=== PATIENT | female | born 1990 | race Caucasian/White ===

== ENCOUNTER 2018-03-10 12:24 | Emergency (ER) | payer MEDICAID, SELFPAY ==
[2018-03-10 12:25] VITALS: BP 140/103; PULSE 107; RESP 20; TEMP 36.6; O2SAT 100; BMI 55.5
[2018-03-10 12:52] VITALS: RESP 17; O2SAT 97
[2018-03-10 12:59] LABS: Absolute Lymphocyte Count 1.26 X10^3/ul (0.83-4.51); Absolute Neutrophil Count 2.4 X10^3/uL (2.0-7.7); Basophil# 0.01 X10^3/uL; Basophil% 0.2 % (0-1); Eosinophil# 0.19 X10^3/uL; Eosinophils% 4.3 % (0-5); Hematocrit 42.6 % (37-47); Hemoglobin 14.3 g/dl (12.0-15.0); Lymphocyte # 1.26 X10^3/ul (4.0); Lymphocyte % 28.4 % (19-41); Mean Corp Hgb Conc 33.6 g/gl (32-36); Mean Corpuscular Hgb 29.8 pg (27.0-32.0); Mean Corpuscular Volume 88.8 fL (81-99); Monocyte# 0.54 X10^3/uL; Monocyte% 12.2 % (0-10); Neutrophil # 2.42 X10^3/uL (2.7-7.7); Neutrophil % 54.7 % (47-70); Platelet Count 110 K/mm3 (150-450); RBC Distribution Width CV 12.6 % (11.6-14.6); RBC Distribution Width SD 40.2 fl (35.1-43.9); White Blood Count 4.4 K/mm3 (4.4-11.0)
[2018-03-10 13:00] LABS: POSITIVE COUNT NO; POSITIVE DIFFERENTIAL NO; POSITIVE MORPHOLOGY NO
--- NOTE | 2018-03-10 13:03 | ED.VISSUMM ---
- ER Visit Summary Date of Service: 03/10/18 Chief Complaint: [] Multiple complaints for months History of Present Illness: The patient is a 27 F [] reports she has depression and multiple personality disorder she complains of months; she has had chronic daily chest pain for years, a sense that she is swelling nonspecifically, she feels she has had weight gain, she complains of intermittent nausea no real vomiting no abdominal pain she has missed her menstrual cycles and there is a possibility of by her history she has had no vaginal bleeding or discharge she has no leg edema, she has no history of NE PE or DVT or cardiopulmonary disorder she is followed by psychiatrist who told her to go see her primary care physician, which he tried to make that appointment they told they could not see her until March so she came to the emergency department These complaints are new or different the only reason she came to the ED was because her doctor asked her to wait until March for the appointment as she was concerned she was dehydrated and was retaining fluid Physical Examination: [] Test Results: [] v signs are within normal range her pulse ox is 100% she is afebrile she is in absent no distress she is a large person her BMI is 57, her HEENT exam is unremarkable her lungs sound clear heart tones are distant the abdomen is soft obese but nontender upper lower extremities are unremarkable without signs clubbing or edema neurologic she is awake moving all 4 I do not appreciate any area of focal edema she has full range of motion of all major joints, she denies any history except as above Emergency Department Course and Treatment: [] Patient's EKG chest x-ray are unremarkable all of her lab studies are generally unremarkable please see those reports except her d-dimer returned elevated 0.67, I discussed all of the above with her I discussed the d-dimer potentially could suggest a PE recommended CTA to evaluate for this potentially life-threatening condition however she declined the CTA stating she felt better she wanted to go home, she verbalized understanding of the risk of from PE or other life-threatening conditions, she indicated she was primarily concerned over the fact that she felt that she was dehydrated or retaining fluid I explained her none of her test results suggested that, she is Jose Luis a bland diet follow-up with her physicians as scheduled to move the appointment up and return for change in symptoms further I note she has been seen multiple times in the past for chest pain and she indicates to me she has never followed up as she has been instructed to do and have explained her that she must follow-up for this diagnosis and obtain the appropriate outpatient management and she indicates that she will do so and she has an appointment scheduled for March but have asked her to move that up Treatment Plan: [] Disposition: [] Home stable, declined CTA Impression: [] Acute recurrent chest pain, concern for dehydration, This note was generated with [employer] dictation software. It may contain incorrect words, spelling, and punctuation that were not noted in review of the chart prior to signing ED Disposition - Plan for ED Patient: Chief Complaint: General Illness Referrals: Gayatri Grubbs MD [Primary Care Provider] -
--- NOTE | 2018-03-10 13:06 | EKG12_ITS ---
Test Reason : CP Blood Pressure : / mmHG Vent. Rate : 088 BPM Atrial Rate : 088 BPM P-R Int : 126 ms QRS Dur : 074 ms QT Int : 352 ms P-R-T Axes : 030 074 028 degrees QTc Int : 425 ms Normal sinus rhythm Normal ECG Confirmed by TORIE CALVERT MD ([id number]), avid editor RUTH SALAZAR ([id number]) on 03/13/2018 2:27:56 PM Referred By: Confirmed By:TORIE CALVERT MD
[2018-03-10 13:13] LABS: AST(SGOT) 12 U/L (15-37); Alanine Aminotransfer ALT/SGPT 15 U/L (13-56); Albumin, Serum 3.5 g/dL (3.2-5.0); Alkaline Phosphatase 97 U/L (45-117); Anion Gap 5 (5-15); BUN 9 mg/dL (7-18); BUN/Creat Ratio 8.1 RATIO (10-20); Bilirubin, Direct 0.12 mg/dL (0.00-0.30); Calcium,Total 8.4 mg/dL (8.5-10.1); Chloride 109 mmol/L (98-107); Creatinine, Serum 1.11 mg/dL (0.55-1.02); EST Glomerular Filtration Rate 61 mL/min (>60); Est Glom Filt Rate - Afr Amer 74 mL/min (>60); Estimated Creatinine Clearance 59.15 ml/min; Globulin 3.7 g/dL (2.2-4.2); Glucose 86 mg/dL (74-106); Lipase 52 U/L (73-393); Potassium 4.2 mmol/L (3.5-5.1); Protein, Total 7.2 g/dL (6.4-8.2); Sodium Level 142 mmol/L (136-145)
--- NOTE | 2018-03-10 13:15 | RAD_ITS ---
STUDY: X-RAY CHEST REASON FOR EXAM: Female, 27 years old. Shortness of breath and chest pain TECHNIQUE: 2 views of the chest were obtained COMPARISON: November 21, 2017 chest radiograph FINDINGS: No lung consolidation, pleural effusion or pneumothorax. Mild pulmonary vascular congestion. Osseous structures demonstrate no acute hours. Degenerative changes in the thoracic spine. Small calcified granuloma in the right upper lobe. IMPRESSION: No evidence for focal airspace disease. Electronically Signed: Mazin Mallory, at 13:50 EDT Tel , Service support , RAD/Chest PA and Lateral
[2018-03-10 13:27] LABS: Bacteria 0 SEEN /hpf (None Seen); Color, Urine Yellow (Yellow); Glucose, Dipstick Normal (Normal); Ketone-Dipstick Negative (Negative); Leukocyte Esterase-Dipstick Negative /ul (Negative); Mucous, Urine 0 SEEN /hpf (<or=2+); Nitrite-Dipstick Negative (Negative); Occult Blood-Urine Negative /ul (Negative); Protein-Dipstick Negative (Negative); Red Blood Cells-Urine 0 SEEN /hpf (0-5); Urine Bilirubin Dipstick Negative (Negative); Urine Clarity Clear (Clear); Urine Urobilinogen Normal (Normal); White Blood Cells 0 SEEN /hpf (0-5)
[2018-03-10 13:33] LABS: Pregnancy, Serum, hCG Quali. NEGATIVE Negative (0-9 Nonpreg)
[2018-03-10 13:34] LABS: Squamous Epithelial Cells - UA 0-5 SEEN /hpf (5-10)
[2018-03-10 14:11] LABS: D-Dimer Quantitative (DVT/PE) 0.67 FEU/ug/m (0.27-0.49)
[2018-03-10 14:16] LABS: BNP,B-Type NATRIURETIC PEPTIDE 6.2 pg/mL (0-100)
--- NOTE | 2018-03-10 14:47 | ED.DEP ---
ED Disposition - Plan for ED Patient: Chief Complaint: General Illness Instructions: ED Chest Pain Atypical Unkn Cause Referrals: Gayatri Grubbs MD [Primary Care Provider] -
[2018-03-10 15:12] VITALS: BP 145/76; PULSE 90; RESP 17; O2SAT 99
== END 2018-03-10 15:13 | disposition home or self-care (01) ==
LOC: ED 14:22
PROVIDERS: Emergency Provider Emergency Medicine; Family Provider Internal Medicine; PCP Internal Medicine
DX: R07.9 Chest pain, unspecified (principal); R74.8 Abnormal levels of other serum enzymes; R11.0 Nausea; F44.81 Dissociative identity disorder; F32.9 Major depressive disorder, single episode, unspecified; Z79.899 Other long term (current) drug therapy
CPT/HCPCS: 71046; 80048; 80076; 81001; 83690; 83880; 84484; 84703; 85025; 85379; 93005; 96360; 99283; J7030; J7040; A4216

== ENCOUNTER 2019-06-15 20:12 | Emergency (ER) | payer MEDICAID, SELFPAY ==
[2019-06-15 20:12] VITALS: BP 164/103; PULSE 115; RESP 18; TEMP 36.8; O2SAT 98; BMI 56.4
--- NOTE | 2019-06-15 20:28 | RAD_ITS ---
STUDY: X-RAY - PELVIS REASON FOR EXAM: Female, 29 years old. Pain TECHNIQUE: 2 views of the pelvis COMPARISON: None. FINDINGS: There is no evidence of fracture or dislocation. There are no significant degenerative changes. There are no radiodense foreign bodies. RAD/Pelvis 1 or 2 Views IMPRESSION: No fracture or dislocation. Electronically Signed: Horace Bonilla, at 21:07 EDT Tel , Service support ,
--- NOTE | 2019-06-15 20:28 | RAD_ITS ---
STUDY: X-RAY - LUMBAR SPINE REASON FOR EXAM: Female, 29 years old. Injury TECHNIQUE: 3 view(s) of the lumbar spine were obtained. COMPARISON: None FINDINGS: There is no evidence of fracture or dislocation in the lumbar spine. The vertebral body heights and disc spaces are well-maintained. There are no significant degenerative changes. RAD/Lumbar Spine 2 or 3 Views IMPRESSION: No fracture or dislocation in the lumbar spine. Electronically Signed: Horace Bonilla, at 21:07 EDT Tel , Service support ,
--- NOTE | 2019-06-15 21:17 | ED.DCSUM_ITS ---
- ER Visit Summary Date of Service: 06/15/19 Chief Complaint: Back pain History of Present Illness: The patient is a 29 F who states that 2 weeks ago she fell in the shower trying to sit on the chair landing sitting position. That she has pain mostly in the lower back but does shoot up to the intrascapular region when she attempts to sit. No radicular symptoms. No loss of bowel or bladder control. No IV drug use. No fevers no rashes. She denies any neurologic deficits. She states that she is unable to see her primary care physician for months due to them being booked. She sees Dr. kwan at the [facility]. I did ask if the patient knew that they typically are able to get them in with the nurse practitioner and she states that they were booked as well. Physical Examination: Afebrile vital signs are stable Gen: Well-nourished well-developed Head: Normocephalic atraumatic Eyes: Perrl EOMI ENT: TMs clear no rhinorrhea moist mucous membranes Neck: Supple no lymphadenopathy no JVD nontender CVS: Regular rate rhythm no murmurs normal S1-S2 Respiratory: No distress clear to auscultation bilaterally chest nontender Abdomen: Soft nontender nondistended normal bowel sounds no masses Back: Patient has diffuse tenderness palpation of the lower lumbar buttock region out of proportion to examination. There is pain even to the lightest touch. Extremity: Nontender no edema Skin: Normal color no rash Neuro: alert orientated ?3 CN II-XII intact normal strength sensation reflexes gait cerebellar Psych: Blunted affect Test Results: X-rays of the pelvis lumbar spine do not demonstrate any acute fracture. Emergency Department Course and Treatment: Patient be discharged home with naproxen and Flexeril she is to follow-up with primary care. Impression: 1. Acute lumbar muscle strain This note was generated with [employer] dictation software. It may contain incorrect words, spelling, and punctuation that were not noted in review of the chart prior to signing ED Disposition - Plan for ED Patient: Disposition: Home or Assisted Living Instructions: Back Sprain/Strain Prescriptions: cycloBENZAPRine HCl [Flexeril] 10 mg PO TID PRN #15 tab PRN Reason: Muscle Spasm Prescription Printed Naproxen [Naprosyn] 500 mg PO BID #14 tab Prescription Printed Referrals: Gayatri Grubbs MD [Primary Care Provider] - 1 Week
[2019-06-15 21:27] VITALS: BP 123/82; PULSE 89; RESP 18; O2SAT 95
--- NOTE | 2019-06-15 21:28 | ED.RN ---
REVIEWED D/C INSTRUCTIONS, FOLLOW UP CARE, PRESCRIPTIONS, AND S/S THAT WOULD WARRANT A RETURN TO THE ED WITH PT. PT VERBALIZED AN UNDERSTANDING AND DENIES FURTHER QUESTIONS FOR THIS RN. PT SKIN P/W/D, RESP EVEN AND UNLABORED, PT A&O X 3, NO DISTRESS NOTED. PT AMBULATED OUT OF ED, GAIT STEADY.
== END 2019-06-15 21:29 | disposition home or self-care (01) ==
PROVIDERS: Emergency Provider Emergency Medicine; Family Provider Internal Medicine; PCP Internal Medicine
DX: S39.012A Strain of muscle, fascia and tendon of lower back, initial encounter (principal); W07.XXXA Fall from chair, initial encounter; Y93.E1 Activity, personal bathing and showering; Y92.9 Unspecified place or not applicable; Y99.9 Unspecified external cause status; Z72.0 Tobacco use
CPT/HCPCS: 72100; 72170; 99282

== ENCOUNTER 2019-06-28 20:18 | Emergency (ER) | payer MEDICAID, SELFPAY ==
[2019-06-28 20:19] VITALS: BP 159/98; PULSE 106; RESP 15; TEMP 36.7; O2SAT 94; BMI 56.0
--- NOTE | 2019-06-28 21:28 | ED.DCSUM_ITS ---
- ER Visit Summary Date of Service: 06/28/19 Chief Complaint: Depression History of Present Illness: The patient is a 29 F with a history of anxiety, depression, bipolar disorder, and schizophrenia. She stopped taking her meds about 2 weeks ago because she was drinking alcohol. She said this made her anxi ety symptoms worse. She had a fight with her mom and this also made her symptoms worse. She is not currently having any thoughts of suicide. No plan. No attempt. She has her friends with her to support her. No medical complaints today. Physical Examination: Afebrile and vital signs unremarkable. Patient alert and oriented. Depressed mood and flat affect. Skin unremarkable. Neurologic exam grossly normal. Test Results: None indicated Emergency Department Course and Treatment: Patient presents with depressed mood symptoms. She is not suicidal. There is no indication for involuntary hospitalization. She spoke with her social media community manager who agreed. She was able to get follow-up with her crisis counselor tomorrow. She will stay with her friends tonight. Return for any new or worsening issues. She will take her medications. Treatment Plan: As above Disposition: Discharge Impression: 1. Mood disorder This note was generated with [employer] software. It may contain incorrect words, spelling, and punctuation that were not noted in review of the chart prior to signing ED Disposition - Plan for ED Patient: Referrals: Gayatri Grubbs MD [Primary Care Provider] -
--- NOTE | 2019-06-28 21:30 | ED.DEP ---
ED Disposition - Plan for ED Patient: Instructions: CONTRACT, No Harm Additional Instructions: followup with crisis counselor tomorrow as discussed
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
== END 2019-06-28 22:10 | disposition home or self-care (01) ==
PROVIDERS: Emergency Provider Emergency Medicine; Family Provider Internal Medicine; PCP Internal Medicine
DX: F39 Unspecified mood [affective] disorder (principal); F20.9 Schizophrenia, unspecified; F31.9 Bipolar disorder, unspecified; F41.9 Anxiety disorder, unspecified; K21.9 Gastro-esophageal reflux disease without esophagitis; Z72.0 Tobacco use; Z79.899 Other long term (current) drug therapy
CPT/HCPCS: 99282

== ENCOUNTER 2019-08-16 18:46 | Emergency (ER) | payer MEDICAID, SELFPAY ==
[2019-08-16 18:46] VITALS: BP 152/122; PULSE 101; RESP 15; O2SAT 100
[2019-08-16 18:47] VITALS: BP 152/122; PULSE 105; RESP 15; TEMP 37.1; O2SAT 100; BMI 56.2
--- NOTE | 2019-08-16 19:24 | EKG12_ITS ---
Test Reason : CP Blood Pressure : / mmHG Vent. Rate : 102 BPM Atrial Rate : 102 BPM P-R Int : 138 ms QRS Dur : 080 ms QT Int : 338 ms P-R-T Axes : 031 075 054 degrees QTc Int : 440 ms Sinus tachycardia Otherwise normal ECG Confirmed by ENRIKE MUELLER, TORIE ([id number]), editorial clerk RAMONITA GÓMEZ ([id number]) on 08/19/2019 8:54:36 AM Referred By: DC Confirmed By:TORIE CALVERT MD
--- NOTE | 2019-08-16 19:29 | RAD_ITS ---
STUDY: X-RAY CHEST REASON FOR EXAM: Female, 29 years old. Chest pain TECHNIQUE: Frontal view of the chest COMPARISON: X-Ray chest March 10, 2018 FINDINGS: The lungs are clear. There are no pleural effusions. There is no pneumothorax. The heart is normal in size. The visualized osseous structures are within normal limits. RAD/Chest 1 View (Portable) IMPRESSION: No acute thoracic pathology. Electronically Signed: Rodríguez Stafford, at 20:08 EDT Tel , Service support ,
[2019-08-16 19:31] LABS: Absolute Lymphocyte Count 2.97 X10^3/uL (0.83-4.51); Absolute Neutrophil Count 3.9 X10^3/uL (2.0-7.7); Basophil# 0.06 X10^3/uL; Basophil% 0.8 % (0-1); Eosinophil# 0.18 X10^3/uL; Eosinophils% 2.3 % (0-5); Hematocrit 46.6 % (37-47); Hemoglobin 16.1 g/dL (12.0-15.0); Lymphocyte # 2.97 X10^3/ul (4.0); Lymphocyte % 37.6 % (19-41); Mean Corp Hgb Conc 34.5 g/dL (32-36); Mean Corpuscular Hgb 29.7 pg (27.0-32.0); Monocyte# 0.81 X10^3/uL; Monocyte% 10.3 % (0-10); NRBC Flagged by Analyzer 0 % (0-5); Neutrophil # 3.85 X10^3/uL (2.7-7.7); Neutrophil % 48.7 % (47-70); Platelet Count 141 K/mm3 (150-450); RBC Distribution Width CV 12.4 % (11.6-14.6); RBC Distribution Width SD 38.5 fl (35.1-43.9); Red Blood Count 5.42 M/mm3 (4.2-5.4); White Blood Count 7.9 K/mm3 (4.4-11.0)
[2019-08-16] MEDS: Aspirin 81 MG TAB.CHEW 324 MG PO (19:34)
[2019-08-16 19:44] LABS: D-Dimer Quantitative (DVT/PE) 0.56 FEU/ug/m (0.27-0.49)
--- NOTE | 2019-08-16 19:45 | CT_ITS ---
STUDY: CTA CHEST REASON FOR EXAM: Female, 29 years old. Shortness of breath RADIATION DOSAGE (If Supplied By Facility): CTDIvol = ( 9.1 ) mGy, DLP = ( 476.03 ) mGycm TECHNIQUE: The examination was performed with the intravenous administration of 100 IV Isovue 370. Post-processing of the angiographic images was performed, with multiplanar reformation and 3D reconstruction. Individualized dose optimization techniques were used for this CT. COMPARISON: None. FINDINGS: Normal enhancement of the main pulmonary artery and right and left pulmonary arteries. Normal enhancement of the bilateral peripheral pulmonary arteries. There is no demonstrated pulmonary embolism. Normal thoracic aorta and visualized great vessels. There is no demonstrated aortic dissection. Normal heart and pericardium. Normal mediastinum. Normal hilar regions. Normal visualized trachea and bronchi. The lungs are well expanded. There is no consolidation. There is a left lower lobe 4 mm nodule of unlikely clinical significance, series 2 image 82. Normal pleura. Normal chest wall structures. Normal osseous structures. Normal visualized upper abdomen. CT/CTA Chest W/WO Contrast IMPRESSION: No evidence of pulmonary embolus. No consolidation. Left lower lobe 4 mm nodule of unlikely clinical significance. Electronically Signed: Rodríguez Stafford, at 20:22 EDT Tel , Service support ,
[2019-08-16 19:46] VITALS: BP 145/99; PULSE 93; RESP 12; O2SAT 98
[2019-08-16 19:46] LABS: Anion Gap 3 (5-15); BUN 8 mg/dL (7-18); BUN/Creat Ratio 5.9 RATIO (10-20); Chloride 104 mmol/L (98-107); Creatinine, Serum 1.36 mg/dL (0.55-1.02); EST Glomerular Filtration Rate 48 mL/min (>60); Est Glom Filt Rate - Afr Amer 58 mL/min (>60); Glucose 89 mg/dL (74-106); Potassium 3.4 mmol/L (3.5-5.1); Sodium Level 135 mmol/L (136-145)
--- NOTE | 2019-08-16 19:46 | ED.RN ---
LAB VALUE RECEIVED FROM LAB. D-DIMER 0.56. DR. BUITRAGO NOTIFIED.
[2019-08-16 20:00] VITALS: BP 115/86; PULSE 87; RESP 15; O2SAT 100
--- NOTE | 2019-08-16 21:02 | ED.VISSUMM ---
- ER Visit Summary Date of Service: 08/16/19 Chief Complaint: Chest pain History of Present Illness: The patient is a 29 F with chest pain that started yesterday and was worse today. Patient feels like someone is sitting on her chest. She does report increasing stress. She dealt with a miscarriage over the past week. She was early in her first trimester. She was having some vaginal bleeding and her hormone levels were dropping. She saw an OCCUPATIONAL HEALTH MANAGER at the [facility]. They attributed the loss to her medications. She also said that yesterday was the anniversary of her father's . She has been dealing with a lot of stress, and she has been trying to stay calm. She also reports recent travel. Physical Examination: Afebrile and vital signs unremarkable. Blood pressure 152/122. Patient is alert and oriented. No acute distress. Heart regular. Lungs clear. Abdomen soft. Extremities nontender. Symmetric edema. Skin normal in color. Test Results: EKG showed sinus rhythm at a rate of 102. No sign of ischemia or infarction pattern. Hemoglobin 16.1 and platelets 141. Creatinine 1.36. Troponin normal. D-dimer slightly elevated 0.56. CTA showed a left lower lobe nodule 4 mm. No evidence of PE. Emergency Department Course and Treatment: Patient is low risk for ACS. Low risk for PE. Work-up was unremarkable. I believe her symptoms are related to stress. No indication for further imaging or treatment. She is appropriate for outpatient care. She feels safe at home. She will be discharged with her family. Follow-up regarding her chest pain and lung nodule as an outpatient. Return for any new or worsening issues. Treatment Plan: As above Disposition: Discharge Impression: 1. Chest pain 2. Lung nodule This note was generated with [employer] software. It may contain incorrect words, spelling, and punctuation that were not noted in review of the chart prior to signing ED Disposition - Plan for ED Patient: Referrals: Gayatri Grubbs MD [Primary Care Provider] -
--- NOTE | 2019-08-16 21:08 | ED.DEP ---
ED Disposition - Plan for ED Patient: Instructions: CHEST PAIN, Uncertain Cause Referrals: Gayatri Grubbs MD [Primary Care Provider] -
[2019-08-16 21:28] VITALS: BP 130/99; PULSE 98; RESP 15; O2SAT 97
== END 2019-08-16 21:29 | disposition home or self-care (01) ==
LOC: ED 19:43
PROVIDERS: Emergency Provider Emergency Medicine; Family Provider Internal Medicine; PCP Internal Medicine
DX: R07.9 Chest pain, unspecified (principal); R74.8 Abnormal levels of other serum enzymes; R91.1 Solitary pulmonary nodule; F41.9 Anxiety disorder, unspecified; Z72.0 Tobacco use; Z79.899 Other long term (current) drug therapy
CPT/HCPCS: 71045; 71275; 80048; 84484; 85025; 85379; 93005; 99285; Q9967; A4216

== ENCOUNTER 2019-12-16 16:54 | Emergency (ER) | payer MEDICAID, SELFPAY ==
[2019-12-16 16:54] VITALS: BP 149/106; PULSE 112; RESP 18; O2SAT 96
[2019-12-16 16:55] VITALS: BP 149/106; PULSE 112; RESP 18; TEMP 36; O2SAT 97; BMI 57.6
--- NOTE | 2019-12-16 17:48 | ED.VIS.GEN ---
History of Present Illness Chief Complaint: Chest Other Detail of Chief Complaint: Left rib injury Informant: Patient Onset: Today Context: Sudden Onset Current Severity: Moderate Maximum Severity: Moderate Narrative: Patient presents with left rib pain after a fall. She states she went outside and missed a step. She fell landing on her left side. She complaining of pain to the left ribs. She does report pain with deep breath. She denies any other injury from the fall. She has not taken anything for pain. Past Medical History - Allergies and Home Meds Allergies/Adverse Reactions: Allergies bacitracin Allergy (Verified 06/28/19 20:24) Unknown Latex, Natural Rubber Allergy (Verified 06/28/19 20:24) Rash Penicillins Allergy (Verified 06/28/19 20:24) Unknown Primary Care Physician: Gayatri Grubbs MD [Primary Care Provider] - Prior records reviewed: Yes Lives: Spouse/ Significant Other Smoking Status: Current every day smoker Review of Systems General: Denies: Chills, Fever Eyes: Denies: Visual changes - bilaterally ENT: Denies: Bilateral ear pain Cardiovascular: Reports: Chest pain Respiratory: Reports: Dyspnea - Pain with deep breath Gastrointestinal: Denies: Abdominal pain, Nausea, Vomiting, Diarrhea Genitourinary: Denies: Dysuria Musculoskeletal: Denies: Extremity Pain Skin: Denies: Rash Neurological: Denies: Headache, Weakness Physical Exam Vital Signs/Narrative: Vital Signs Temp Pulse Resp BP Pulse Ox 12/16/19 16:55 96.8 F L 112 H 18 149/106 H 97 12/16/19 16:54 112 H 18 149/106 H 96 Inital Vital Signs reviewed: Yes General: Well nourished, Well developed Head: Normocephalic ENT: Moist mucous membranes, - - No C-spine tenderness. Cardiovascular: Regular rate, Regular rhythm Respiratory: No distress, CTA bilaterally, Chest tenderness - Left rib tenderness palpation. Abdomen: Soft Skin: Normal color Neurological: Alert, Oriented x3 Psychological: Normal affect Diagnostic/Tx/Re-eval Impressions Chest X-Ray 12/16/19 17:50 IMPRESSION: No acute cardiopulmonary disease or major interval change. Electronically Signed: Gordon Waldrop DO at 18:20 EST Tel [phone], Service support , 12/16/19 17:50 Chest Insp/Exp 2 View [RAD] Routine - Medical Decision Making She was given Tylenol for pain. Test results are discussed with her. She now tells me she is able to take [place] without difficulty but cannot take ibuprofen or oxycodone. Prescription for [place] will be sent to the pharmacy for her. ED Disposition - Plan for ED Patient: Disposition: Home or Assisted Living Diagnosis: Rib contusion Instructions: RIB: CONTUSION vs MINOR FRACTURE Prescriptions: Hydrocodone Bitart/Apap 5-325 [[place] 5MG-325MG] 1 tablet PO Q6H PRN PRN 3 Days #10 tablet PRN Reason: Pain Transmission Status: Received by [facility] [facility] Referrals: Gayatri Grubbs MD [Primary Care Provider] - 1-2 Weeks
--- NOTE | 2019-12-16 17:50 | RAD_ITS ---
STUDY: X-RAY CHEST REASON FOR EXAM: Female, 29 years old. Fall. Left anterior chest pain. TECHNIQUE: AP inspiratory and expiratory views were performed. COMPARISON: August 16, 2019. FINDINGS: The lungs are clear and expanded. There is no demonstrated pleural abnormality. Normal size heart. Normal mediastinum and emma. Normal visualized pulmonary arteries. Normal visualized aortic arch and descending thoracic aorta. The thoracic spine is obscured by the mediastinum. Normal visualized ribs, clavicles, and shoulders. There is no demonstrated abnormality of the visualized soft tissue structures of the upper abdomen. RAD/Chest Insp/Exp 2 View IMPRESSION: No acute cardiopulmonary disease or major interval change. Electronically Signed: Gordon Waldrop DO at 18:20 EST Tel [phone], Service support ,
[2019-12-16] MEDS: Acetaminophen 500 MG Tablet 1000 MG PO (18:14)
[2019-12-16 19:02] VITALS: PULSE 100; RESP 16; O2SAT 98
== END 2019-12-16 19:09 | disposition home or self-care (01) ==
PROVIDERS: Emergency Provider Emergency Medicine; PCP Internal Medicine
DX: S20.212A Contusion of left front wall of thorax, initial encounter (principal); W10.9XXA Fall (on) (from) unspecified stairs and steps, initial encounter; Y93.9 Activity, unspecified; Y92.9 Unspecified place or not applicable; Y99.9 Unspecified external cause status; Z91.040 Latex allergy status; Z88.0 Allergy status to penicillin; F17.200 Nicotine dependence, unspecified, uncomplicated; Z79.899 Other long term (current) drug therapy
CPT/HCPCS: 71046; 99283

== ENCOUNTER 2020-07-27 13:24 | Emergency (ER) | payer MEDICAID, SELFPAY ==
[2020-07-27 13:24] VITALS: BP 131/84; PULSE 68; RESP 15; TEMP 36.4; O2SAT 99; BMI 57.4
[2020-07-27] MEDS: Naproxen 500 MG Tablet PO (13:47)
[2020-07-27] MEDS: HYDROcodone Bitartrate/Apap 5/325 Tablet PO (13:47)
--- NOTE | 2020-07-27 13:50 | RAD_ITS ---
STUDY: X-RAY - RIGHT ANKLE REASON FOR EXAM: Right ankle pain after a fall. TECHNIQUE: 2 view(s) of the ankle. COMPARISON: Radiographs 09/22/2017. FINDINGS: Although there is considerable overlying artifact, there is still significant diagnostically useful information available from this examination. Normal visualized distal tibia and fibula. Normal medial and lateral malleoli. Normal tibiotalar articulation and ankle mortise. Normal visualized talus and calcaneus. There is an os trigonum. The visualized subtalar, talonavicular, calcaneocuboid and tarsal articulations are normal. There is soft tissue swelling. RAD/Ankle 2 Views IMPRESSION: No demonstrated right ankle fracture. Electronically Signed: Scout Russ MD at 14:14 EDT Tel , Service support ,
--- NOTE | 2020-07-27 14:58 | ED.DCSUM_ITS ---
History of Present Illness Chief Complaint: Lower Extremity Injury Informant: Patient Onset: Today Mechanism/Context: Blunt Injury, Fall - Plantar inversion mechanism of injury Quality of Pain: Dull, Aching Location: Right ankle Current Severity: Mild Maximum Severity: Severe Worsened by: Any type of movement or touch Relieved by: Nothing Associated Symptoms: Inability to ambulate. Negative for: Parasthesias, Weakness, Loss of consciousness, Amnesia Narrative: Patient is a 30-year-old woman who stepped on a treadmill that was running. She was unaware that was running. She had a plantar inversion mechanism injury. She arrived by squad with air splint in place. She denies prior injury. Denies paresthesia, anesthesia or motor weakness. She denies knee pain. Prior similar symptoms: No Recent Illness/Hospitalization: No - Past Medical History (1) No significant past medical history Status: Acute Past Medical History - Allergies and Home Meds Allergies/Adverse Reactions: Allergies bacitracin Allergy (Verified 07/27/20 13:39) Unknown Latex, Natural Rubber Allergy (Verified 07/27/20 13:39) Rash Penicillins Allergy (Verified 07/27/20 13:39) Unknown Primary Care Physician: Gayatri Grubbs MD [Primary Care Provider] - Prior records reviewed: No Surgical History: noncontributory Lives: Alone Smoking Status: Light Smoker (<10/day) Alcohol: Rare Drugs: None Review of Systems Gastrointestinal: Denies: Nausea, Vomiting Musculoskeletal: Reports: Extremity Pain. Denies: Myalgias, Arthralgias, Neck pain, Back pain Skin: Denies: Rash, Wounds Neurological: Denies: Headache, Weakness, Parasthesia, Numbness Hematologic: Denies: Easy bruising, Easy bleeding Physical Exam Vital Signs/Narrative: Vital Signs Temp Pulse Resp BP Pulse Ox 07/27/20 13:24 97.6 F L 68 15 131/84 H 99 Inital Vital Signs reviewed: Yes General: Well nourished, Well developed, Obese Head: Normocephalic, Atraumatic Eyes: Perrl, EOMI. Negative for: Pale conjunctiva, Scleral icterus ENT: No trauma. Negative for: Nasal trauma, Nasal septal hematoma Neck: Nontender. Negative for: Full ROM, Spinal Tenderness, Paraspinal Tenderness Cardiovascular: Regular rate, Regular rhythm Respiratory: No distress Extremeties: Has pain out of proportion to light tactile stimulation. There is no obvious swelling of the right ankle compared to left. She is complaining of pain over both the lateral and medial malleolus. DP and PT pulses are palpable. There is no pain ovation of the base of fifth metatarsal. Neurological: Alert, Oriented x3, Cranial nerves II-XII grossly intact, Normal Strength, Normal Sensation Psychological: Tearful - Glascow Coma Scale Eye Opening: Spontaneous Motor: Obeys Commands Verbal: Oriented Coma Scale Total: 15 Diagnostic/Tx/Re-eval Chest X-Ray - ED: 2 View, Read by ED Physician, - - 2 view x-ray of the ankle was obtained. There is no evidence of fracture, subluxation or dislocation. - Medical Decision Making Was obtained to evaluate for sprain versus fracture. She was medicated with oral pain meds for her discomfort. ED Disposition - Plan for ED Patient: Disposition: Home or Assisted Living Diagnosis: Sprain of unspecified ligament of right ankle, initial encounter Instructions: ED Sprain Ankle W X Ray Prescriptions: Naproxen [Naprosyn] 500 mg PO BID #14 tab Transmission Status: Pending to [facility] Referrals: Gayatri Grubbs MD [Primary Care Provider] - 10-14 Days if not better Additional Instructions: 1. Remove Aircast 6 times a day to draw the alphabet with your right foot.
[2020-07-27 15:14] VITALS: BP 113/77; PULSE 89; RESP 16; O2SAT 98
== END 2020-07-27 15:15 | disposition home or self-care (01) ==
PROVIDERS: Emergency Provider Emergency Medicine; PCP Internal Medicine
DX: S93.401A Sprain of unspecified ligament of right ankle, initial encounter (principal); F17.200 Nicotine dependence, unspecified, uncomplicated; X58.XXXA Exposure to other specified factors, initial encounter
CPT/HCPCS: 73600; 73610; 99285

== ENCOUNTER → 2020-09-11 16:10 | Emergency (ER) | payer MEDICAID, SELFPAY ==
[2020-09-11] VITALS (7 sets, daily range): BP systolic 125–158; BP diastolic 79–118; PULSE 90–113; RESP 16–18; TEMP 36.2; O2SAT 96–99; BMI 56.3
--- NOTE | 2020-09-11 16:15 | CM.ED ---
SOCIAL WORK Received call from [facility] with Crisis prior to patient's arrival. Patient has been assessed by Crisis and requires inpatient psych hospitalization. [facility] reports will fax over assessment. Medical clearance and lab work to be faxed to [facility] once completed. Plan: Inpatient psych- Crisis facilitating placement Jeana Flores MSW, BOXING INSTRUCTOR
[2020-09-11 17:21] LABS: Absolute Lymphocyte Count 2.34 X10^3/uL (0.83-4.51); Absolute Neutrophil Count 5.5 X10^3/uL (2.0-7.7); Basophil# 0.04 X10^3/uL; Basophil% 0.5 % (0-1); Eosinophil# 0.17 X10^3/uL; Eosinophils% 1.9 % (0-5); Hematocrit 43.2 % (37-47); Hemoglobin 14.6 g/dL (12.0-15.0); Lymphocyte # 2.34 X10^3/ul (4.0); Lymphocyte % 26.4 % (19-41); Mean Corp Hgb Conc 33.8 g/dL (32-36); Mean Corpuscular Hgb 29.1 pg (27.0-32.0); Mean Corpuscular Volume 86.2 fL (81-99); Mean Platelet Vol. 12.8 fl (6.2-12.0); Monocyte# 0.79 X10^3/uL; Monocyte% 8.9 % (0-10); NRBC Flagged by Analyzer 0 % (0-5); Neutrophil % 62.1 % (47-70); Platelet Count 110 K/mm3 (150-450); RBC Distribution Width CV 12.7 % (11.6-14.6); RBC Distribution Width SD 39.4 fl (35.1-43.9); Red Blood Count 5.01 M/mm3 (4.2-5.4); White Blood Count 8.9 K/mm3 (4.4-11.0)
[2020-09-11 17:34] LABS: Anion Gap 5 (5-15); BUN 8 mg/dL (7-18); BUN/Creat Ratio 6.8 RATIO (10-20); Calcium,Total 8.7 mg/dL (8.5-10.1); Chloride 113 mmol/L (98-107); Creatinine, Serum 1.17 mg/dL (0.55-1.02); EST Glomerular Filtration Rate 57 mL/min (>60); Est Glom Filt Rate - Afr Amer 69 mL/min (>60); Glucose 75 mg/dL (74-106); Potassium 3.5 mmol/L (3.5-5.1); Sodium Level 143 mmol/L (136-145)
[2020-09-11 17:43] LABS: Internal QC Validated? YES +Cl - CLEAR BKGD; Pregnancy, Serum, hCG Quali. NEGATIVE Negative
[2020-09-11 18:02] LABS: Amphetamine Urine VISTA NEGATIVE (<1000 ng/mL); Barbiturate Urine VISTA NEGATIVE (< 200 ng/mL); Benzodiazepine Urine VISTA NEGATIVE (< 200 ng/mL); Cocaine Urine VISTA NEGATIVE (< 300 ng/mL); Ecstacy Urine VISTA NEGATIVE (< 500 ng/mL); Methadone Urine VISTA NEGATIVE (< 300 ng/mL); PCP Urine VISTA NEGATIVE (< 25 ng/mL); THC Urine VISTA POSITIVE (< 50 ng/mL); Vista UDS pH Range 6
--- NOTE | 2020-09-11 18:21 | ED.VISSUMM ---
- ER Visit Summary Date of Service: 09/11/20 Chief Complaint: Suicidal ideation History of Present Illness: The patient is a 30 F presenting with suicidal ideation. Patient was sent in by the counseling center for medical clearance for placement. Patient states she feels like she is having a nervous breakdown. She wants to go to sleep and never wake up. She is having flight of ideas. She admits to alcohol use today. She states she talked to her therapist on the phone and was advised to come here for placement. Physical Examination: Vitals are stable. Patient is afebrile. Alert no acute distress. HEENT exam is unremarkable. Neck is supple. Lungs are clear and equal bilaterally. Heart is regular rate and rhythm. Abdomen is soft nontender nondistended. Extremities are unremarkable. Skin is warm and dry. No focal neurologic deficit. Depressed affect, suicidal ideation Remainder of exam is unremarkable. Emergency Department Course and Treatment: CBC unremarkable other than platelet 110. Chemistries unremarkable other than creatinine 1.17. HCG negative. Alcohol 38. Tox positive for cannabinoids. COVID is pending. Discussed with [facility] for evaluation. Disposition: Per counseling center Impression: Suicidal ideation This note was generated with [employer] dictation software. It may contain incorrect words, spelling, and punctuation that were not noted in review of the chart prior to signing ED Disposition - Plan for ED Patient: Referrals: Gayatri Grubbs MD [Primary Care Provider] -
[2020-09-11] MEDS: MELATONIN 10 MG TABLET PO (21:26)
[2020-09-11] MEDS: Benztropine 2 MG Tablet 1 MG PO (21:26)
[2020-09-11] MEDS: hydrOXYzine PAM 25 MG Capsule 50 MG PO (21:26)
== END ==
LOC: ED 17:37
PROVIDERS: Emergency Provider Emergency Medicine; PCP Internal Medicine
DX: R45.851 Suicidal ideations (principal); F31.9 Bipolar disorder, unspecified; F20.9 Schizophrenia, unspecified; F41.9 Anxiety disorder, unspecified; Z72.0 Tobacco use; Z79.899 Other long term (current) drug therapy
CPT/HCPCS: 36415; 80048; 80307; 80320; 84703; 85025; 87635; 99282; 99285; G0480; U0003

== ENCOUNTER → 2020-11-25 14:24 | Outpatient (CLI) | payer MEDICAID, SELFPAY ==
[2020-11-25 13:23] VITALS: BMI 56.1
[2020-11-25 16:54] LABS: Internal QC Validated? YES +Cl - CLEAR BKGD; Pregnancy, Serum, hCG Quali. NEGATIVE Negative
[2020-11-25 17:08] LABS: Prolactin 22.9 ng/mL; T4 Free Direct 1.29 ng/dL (0.76-1.46); Thyroid Stim Hormone (TSH) 2.95 uIU/mL (0.358-3.74)
== END ==
PROVIDERS: PCP Internal Medicine; Visit Provider Internal Medicine
DX: N91.2 Amenorrhea, unspecified (principal)
CPT/HCPCS: 36415; 84146; 84439; 84443; 84703

== ENCOUNTER 2021-06-06 21:26 | Emergency (ER) | payer MEDICAID, SELFPAY ==
[2020-11-25 13:23] VITALS: BMI 56.1
[2021-06-06 21:27] VITALS: BP 121/91; PULSE 99; RESP 18; TEMP 36.7; O2SAT 95; BMI 52.2
--- NOTE | 2021-06-06 21:40 | ED.RN ---
PT REPORTS FALLING IN SHOWER AND HITTING HER HEAD AT 3AM ON 06/06/21.REPORTS SINCE THEN DIZZINESS WITH ROOM SPINNING SENSATION. PT ALSO REPORTS CHEST PAIN INTERMITTENT X 1 MONTH AND HEADACHE.
--- NOTE | 2021-06-06 22:02 | EKG12_ITS ---
Test Reason : DYSRYTHMIA Blood Pressure : / mmHG Vent. Rate : 079 BPM Atrial Rate : 079 BPM P-R Int : 138 ms QRS Dur : 078 ms QT Int : 364 ms P-R-T Axes : 029 072 045 degrees QTc Int : 417 ms Normal sinus rhythm with sinus arrhythmia Cannot rule out Anterior infarct , age undetermined Abnormal ECG Confirmed by TERESA MUELLER, ISIDRO ([id number]), film and video editor RAMONITA GÓMEZ ([id number]) on 06/09/2021 9:20:34 AM Referred By: AYDEN Confirmed By:ISIDRO MOORE MD
--- NOTE | 2021-06-06 22:02 | CT_ITS ---
HISTORY: injury TECHNIQUE: Multiple axial images were obtained of the brain without intravenous contrast. Coronal and sagittal reformats obtained. Bone algorithm axial images obtained. A radiation dose optimization technique was used for this scan. COMPARISON: 06/13/2015 FINDINGS: # of images incl. paperwork: 242 HEMORRHAGE: No evidence of acute intracranial hemorrhage. CEREBRAL PARENCHYMA: --Volume: Unremarkable for age. --White matter: Unremarkable. --Mass: No evidence of intracranial mass. --Stroke: Anaya-white matter differentiation is preserved. VENTRICULAR SYSTEM: No hydrocephalus. MASS EFFECT: No midline shift or focal sulci effacement. Basal cisterns are preserved. SCALP: No large scalp hematoma. CALVARIUM/SKULL BASE: No fracture. PARANASAL SINUSES: Clear. MASTOID AIR CELLS: Clear. Left auricular external auditory canal soft tissue thickening with bilateral cerumen. ORBITS: Imaged portions are unremarkable. ASPECTS acute stroke score: 10 CT/Brain/Head without Contrast IMPRESSION: No CT evidence of acute intracranial hemorrhage or injury. Consider for left otitis externa. Correlate with exam. Bilateral cerumen. Individualized dose optimization techniques were used for this CT. at 0005 Reported and signed by: Dagoberto Shelton MD Electronically Signed: Dagoberto Shelton MD at 0:04 EDT Tel , Service support ,
--- NOTE | 2021-06-06 22:06 | RAD_ITS ---
HISTORY: chest pain EXAMINATION/TECHNIQUE: XR Chest 1 View: COMPARISON: 12/16/2019 FINDINGS: LINES/DEVICES: None. LUNGS: No airspace consolidation. Unremarkable interstitium. No effusion. No pneumothorax. MEDIASTINUM: No cardiomegaly. MUSCULOSKELETAL: No acute osseous finding. RAD/Chest 1 View (Portable) IMPRESSION: No evidence of acute cardiopulmonary process. at 2242 Reported and signed by: Dagoberto Shelton MD Electronically Signed: Dagoberto Shelton MD at 22:40 EDT Tel , Service support ,
[2021-06-06] MEDS: 0.9% Normal Saline 1,000 ML 1000 ML IV (22:18)
[2021-06-06] MEDS: Ondansetron 4 MG/2 ML Vial IV (22:19)
[2021-06-06] MEDS: Ketorolac 30 MG/ML Syringe IV (22:19)
--- NOTE | 2021-06-06 22:19 | EX.ED.DYSGE1 ---
HPI History of Present Illness Chief Complaint: Fall Informant: patient Narrative Narrative: Patient presents to the emergency department with multiple complaints. She states that she has been having dizzy spells for greater than 1 week. She states that during the night last night she was in the shower and hit her head on the shower seat. She notes a loss of consciousness. She states that she struck the left side of her head. She states that she has been having intermittent chest pain that makes her arms go numb for about 1 month. She notes vomiting x4 today. She notes a headache. Patient denies any medication changes. She states that she has been meaning to get her symptoms evaluated but just did not know who to talk to. She does have a primary care physician. She notes that she has been having bilateral nosebleeds. She states that about a week ago she had bleeding from her left ear. [facility] Medical History Anxiety and depression Arthritis Asthma Bipolar 1 disorder GERD (gastroesophageal reflux disease) History of alcohol abuse History of substance abuse Hypertension Hypocalcemia IBS (irritable bowel syndrome) Memory loss Neuropathy Schizophrenia Seasonal allergies Seizures Suicidal thoughts Home Medications omeprazole 20 mg PO DAILY 03/10/18 [History Last Taken 09/11/20] haloperidol 5 mg PO QHS 06/15/19 [History Last Taken 09/10/20] albuterol sulfate 90 mcg/actuation aerosol inhaler 2 puff INHALATION Q6H PRN 11/25/20 [History Last Taken Unknown] folic acid 1 mcg PO DAILY 06/06/21 [History Last Taken Unknown] [id number]-[id number]-[id number] [Cortisporin-TC] 4 drp LEFT EAR TID 7 Days #10 ml 06/07/21 [Rx Last Taken Unknown] Allergy/AdvReac Type Severity Reaction Status Date / Time Bleach (Sodium Hypochlorite) Allergy Mild rash Verified 06/06/21 21:28 bacitracin Allergy Unknown Verified 06/06/21 21:28 Latex, Natural Rubber Allergy Rash Verified 06/06/21 21:28 Penicillins Allergy Unknown Verified 06/06/21 21:28 Family History Aunt Diabetes Father Myocardial infarction, Onset Age: 50 Grandmother Myocardial infarction, Onset Age: 70 Other Alcoholism Anxiety and depression Arthritis Asthma Breast cancer CVA (cerebral vascular accident) Cancer Colon cancer Heart disease Hyperlipemia Hypertension Kidney disease Liver disease Osteoporosis Thyroid disorder Surgical History History of breast biopsy History of hernia repair History of removal of cyst Social History Smoking Status: Current every day smoker tobacco type: cigarettes and e-cigarettes Tobacco: How many years used: 22 alcohol intake: current substance use type: marijuana what type of physical activity do you participate in: walking and bicycling ROS ROS ED Constitutional Constitutional ED: Denies chills or weight loss Eyes Eyes: Denies change in vision or diplopia ENT ENT ED: Denies ear pain, rhinorrhea or sore throat Cardiovascular Cardiovascular: Reports chest pain, palpitations and racing heartbeat; Denies orthopnea Respiratory/Chest Respiratory/Chest: Reports cough and dyspnea; Denies orthopnea Gastrointestinal Gastrointestinal: Reports nausea and vomiting; Denies abdominal pain or diarrhea Genitourinary Genitourinary ED: Denies dysuria, hematuria or urinary frequency Musculoskeletal Musculoskeletal: Denies arthralgias or myalgias Integumentary Denies abscess or rash Neurologic Neurologic: Reports headache(s); Denies weakness Psychiatric Psychiatric: Denies anxiety, depression, suicidal ideation or suicidal thoughts Endocrine Endocrinology: Denies polydipsia, polyphagia or polyuria Allergic/Immunologic Allergic/Immunologic ED: Denies mouth swelling, tongue swelling or urticaria EXAM Physical Exam Const Vital Signs: 06/06/21 21:27 06/06/21 21:33 06/06/21 22:22 Temperature 98.1 F Temperature Source Temporal Pulse Rate 99 87 Respiratory Rate 18 16 Respiratory Effort Normal Non-Labored Respiratory Depth Normal Respiratory Pattern Normal Blood Pressure 121/91 H 127/95 H Blood Pressure Mean 101 105 Pulse Ox 95 95 Oxygen Delivery Method Room Air Room Air 06/06/21 23:11 Temperature Temperature Source Pulse Rate 75 Respiratory Rate 16 Respiratory Effort Respiratory Depth Respiratory Pattern Blood Pressure 123/82 H Blood Pressure Mean 95 Pulse Ox 96 Oxygen Delivery Method Room Air Positive well nourished, well developed and obese General Appearance ED: well developed Nutritional Appearance: obese HEENT Reports normocephalic, head/scalp atraumatic and moist mucous membranes HEENT Narrative: Left ear canal appears swollen. She has pain with movement of the pinna. Eyes PERRL and EOMs intact bilaterally Neck no lymphadenopathy, supple and no JVD Chest Wall Chest Narrative: Patient states that my stethoscope on her chest causes her chest pain. This is the pain that she has been feeling. Resp normal respiratory effort and clear to auscultation bilaterally Cardio regular rate, regular rhythm and no murmurs GI normal to inspection, nondistended, normoactive bowel sounds and non-tender Palpation: soft Back/Spine no CVA tenderness and normal ROM Extremity normal to inspection General Extremety ED: Negative for edema General Extremity: Negative for edema Neuro oriented x3 and CN's II-XII intact bilaterally Sensorium / Orientation: alert Motor Exam: strength 5/5 throughout Psych mental status grossly normal Mood & Affect: Negative for depressed or tearful Skin no rashes or lesions noted and no wounds MDM MDM MDM Narrative Medical decision making narrative: Patient received Toradol and Zofran. Basic blood work was negative. My interpretation of the chest x-ray is no acute process. CT of the brain showed no hemorrhage or fracture. Clinically she has an otitis externa. We will treat with Cortisporin otic. Would recommend the patient follow-up with her doctor return if worsening or concerns Lab Data Attestation: I reviewed the patient's lab results. Labs: Laboratory Results - last 24 hr 06/06/21 06/06/21 22:20 22:20 WBC 7.3 RBC 4.99 Hgb 14.8 Hct 44.2 MCV 88.6 MCH 29.7 MCHC 33.5 RDW Std Deviation 40.8 RDW Coeff of Joao 12.5 Plt Count 118 L MPV 12.8 H Immature Gran % (Auto) 0.400 Neut % (Auto) 58.0 Lymph % (Auto) 27.3 Norman % (Auto) 10.1 H Eos % (Auto) 3.7 Baso % (Auto) 0.5 Absolute Neuts (auto) 4.3 Absolute Lymphs (auto) 2.00 Nucleated RBC % 0 Sodium 139 Potassium 3.5 Chloride 108 H Carbon Dioxide 23.0 Anion Gap 8 BUN 10 Creatinine 1.07 H Estim Creat Clear Calc 61.86 Est GFR (MDRD) Af Amer 76 Est GFR (MDRD) Non-Af 63 BUN/Creatinine Ratio 9.3 L Glucose 86 Calcium 8.1 L Total Bilirubin 0.50 AST 18 ALT 21 Alkaline Phosphatase 113 Troponin I High Sens 3.2 Total Protein 7.0 Albumin 3.3 Globulin 3.7 Albumin/Globulin Ratio 0.9 Radiography Diagnostic Testing: Radiology Impression Brain CT 06/06/21 22:02 IMPRESSION: No CT evidence of acute intracranial hemorrhage or injury. Consider for left otitis externa. Correlate with exam. Bilateral cerumen. Individualized dose optimization techniques were used for this CT. at 0005 Reported and signed by: Dagoberto Shelton MD Electronically Signed: Dagoberto Shelton MD at 0:04 EDT Tel , Service support , Chest X-Ray 06/06/21 22:06 IMPRESSION: No evidence of acute cardiopulmonary process. at 2242 Reported and signed by: Dagoberto Shelton MD Electronically Signed: Dagoberto Shelton MD at 22:40 EDT Tel , Service support , EKG Initial EKG: Attestation: I personally reviewed and interpreted this EKG as follows: Comments: EKG demonstrates a normal sinus rhythm at a rate of 79 bpm. No concerning features of ACS or ectopy noted. No preexcitation noted. Discharge Plan Triage Chief Complaint: Fall ED Provider: Tariq Chowdhury Dx/Rx/DC Orders Clinical Impression: Fall, Acute otitis externa of left ear, Head injury, Dizziness, Chest pain Instructions: ED Head Injury (Adult), ED External Ear Infection (Adult) Prescriptions: New Cortisporin-TC 3.3-3-10-0.5 mg/mL drops,suspension 4 drp LEFT EAR TID 7 Days Qty: 10 RF: 0 No Action albuterol sulfate [Ventolin HFA] 90 mcg/actuation HFA aerosol inhaler 2 puff INHALATION Q6H PRN (Reason: Shortness Of Breath) RF: 0 omeprazole 20 MG capsule 20 mg PO DAILY RF: 0 haloperidol 5 tablet 5 mg PO QHS RF: 0 folic acid 1 mg tablet 1 mcg PO DAILY RF: 0 Primary Care Provider: Gayatri Grubbs Referrals: Gayatri Grubbs MD [Primary Care Provider] - As soon as possible Disposition Disposition: Home, Self Care
[2021-06-06 22:22] VITALS: BP 127/95; PULSE 87; RESP 16; O2SAT 95
[2021-06-06 22:28] LABS: Absolute Neutrophil Count 4.3 X10^3/uL (2.0-7.7); Basophil# 0.04 X10^3/uL; Basophil% 0.5 % (0-1); Eosinophil# 0.27 X10^3/uL; Eosinophils% 3.7 % (0-5); Hematocrit 44.2 % (37-47); Hemoglobin 14.8 g/dL (12.0-15.0); Lymphocyte % 27.3 % (19-41); Mean Corp Hgb Conc 33.5 g/dL (32-36); Mean Corpuscular Hgb 29.7 pg (27.0-32.0); Mean Corpuscular Volume 88.6 fL (81-99); Mean Platelet Vol. 12.8 fl (6.2-12.0); Monocyte# 0.74 X10^3/uL; Monocyte% 10.1 % (0-10); NRBC Flagged by Analyzer 0 % (0-5); Neutrophil # 4.25 X10^3/uL (2.7-7.7); Platelet Count 118 K/mm3 (150-450); RBC Distribution Width CV 12.5 % (11.6-14.6); RBC Distribution Width SD 40.8 fl (35.1-43.9); Red Blood Count 4.99 M/mm3 (4.2-5.4); White Blood Count 7.3 K/mm3 (4.4-11.0)
[2021-06-06 22:49] LABS: ALB/GLOB Ratio 0.9 RATIO (0.9-2.4); AST(SGOT) 18 U/L (15-37); Alanine Aminotransfer ALT/SGPT 21 U/L (13-56); Albumin, Serum 3.3 g/dL (3.2-5.0); Alkaline Phosphatase 113 U/L (45-117); Anion Gap 8 (5-15); BUN 10 mg/dL (7-18); BUN/Creat Ratio 9.3 RATIO (10-20); Calcium,Total 8.1 mg/dL (8.5-10.1); Chloride 108 mmol/L (98-107); Creatinine, Serum 1.07 mg/dL (0.55-1.02); EST Glomerular Filtration Rate 63 mL/min (>60); Est Glom Filt Rate - Afr Amer 76 mL/min (>60); Estimated Creatinine Clearance 61.86 ml/min; Globulin 3.7 g/dL (2.2-4.2); Glucose 86 mg/dL (74-106); Potassium 3.5 mmol/L (3.5-5.1); Sodium Level 139 mmol/L (136-145); Troponin-I HS 3.2 pg/mL (3.0-53.7)
[2021-06-06 23:11] VITALS: BP 123/82; PULSE 75; RESP 16; O2SAT 96
== END 2021-06-07 00:31 | disposition home or self-care (01) ==
PROVIDERS: Emergency Provider Emergency Medicine; PCP Internal Medicine
DX: S06.9X9A Unspecified intracranial injury with loss of consciousness of unspecified duration, initial encounter (principal); W01.198A Fall on same level from slipping, tripping and stumbling with subsequent striking against other object, initial encounter; Y93.E1 Activity, personal bathing and showering; Y92.002 Bathroom of unspecified non-institutional (private) residence as the place of occurrence of the external cause; Y99.9 Unspecified external cause status; H60.502 Unspecified acute noninfective otitis externa, left ear; H61.23 Impacted cerumen, bilateral; R42 Dizziness and giddiness; R07.9 Chest pain, unspecified; R11.10 Vomiting, unspecified; K58.9 Irritable bowel syndrome, unspecified; I10 Essential (primary) hypertension; G62.9 Polyneuropathy, unspecified; J45.909 Unspecified asthma, uncomplicated; M19.90 Unspecified osteoarthritis, unspecified site; K21.9 Gastro-esophageal reflux disease without esophagitis; F20.9 Schizophrenia, unspecified; F31.9 Bipolar disorder, unspecified; F41.9 Anxiety disorder, unspecified; F17.210 Nicotine dependence, cigarettes, uncomplicated; E66.9 Obesity, unspecified; Z79.899 Other long term (current) drug therapy
CPT/HCPCS: 70450; 71045; 80053; 84484; 85025; 93005; 96361; 96374; 96375; 99284; J2405

== ENCOUNTER 2021-07-08 17:49 | Inpatient (IN) | payer MEDICAID, SELFPAY ==
[2021-07-08 17:51] VITALS: BP 138/97; PULSE 68; RESP 19; TEMP 36.1; O2SAT 96; BMI 51.7
--- NOTE | 2021-07-08 18:23 | CT_ITS ---
STUDY: CT ABDOMEN AND PELVIS WITH CONTRAST REASON FOR EXAM: Female, 31 years old. abdominal pain RADIATION DOSAGE (If Supplied By Facility): CTDIvol = ( 15.415 ) mGy, DLP = ( 1250.69 ) mGycm TECHNIQUE: Transaxial images were obtained from the dome of the diaphragm to the symphysis pubis without oral contrast. IV 100mL Isovue-370 was administered. Sagittal and coronal images were reconstructed. Individualized dose optimization techniques were used for this CT. COMPARISON: None. FINDINGS: The visualized lung bases are unremarkable. The visualized portions of the heart are within normal limits. Normal liver. There are tiny noncalcified stones or polyps within the gallbladder demonstrates very mild thickening of the wall but no pericholecystic edema.. Normal spleen. Normal pancreas. Normal bilateral adrenal glands. Normal right kidney. Normal left kidney. Normal visualized stomach. Normal small intestine. Scattered diverticular changes of colon without evidence for acute diverticulitis. There is an a haustral appearance to the colon consistent with nonspecific inflammatory bowel disease The appendix is visualized and appears normal. Normal abdominal aorta. Normal inferior vena cava. Normal retroperitoneum. Normal urinary bladder. Normal abdominal wall. Normal osseous structures. CT/Abdomen/Pelvis W IV Cont ONLY IMPRESSION: Question tiny gallbladder polyps or noncalcified stones. Ultrasound would be helpful for further evaluation if indicated Findings consistent with nonspecific colitis. Scattered diverticular changes of the colon without evidence for acute diverticulitis Electronically Signed: Rodríguez Hernandez MD at 20:35 EDT , Service support ,
[2021-07-08] MEDS: Ondansetron 4 MG/2 ML Vial IV (18:52)
[2021-07-08] MEDS: Morphine 4 MG/ML Syringe IV (18:53)
[2021-07-08] MEDS: 0.9% Normal Saline 1,000 ML 1000 ML IV (18:53)
[2021-07-08 19:11] LABS: Internal QC Validated? YES +Cl - CLEAR BKGD; Pregnancy, Serum, hCG Quali. NEGATIVE Negative
[2021-07-08 19:17] LABS: ALB/GLOB Ratio 0.9 RATIO (0.9-2.4); AST(SGOT) 145 U/L (15-37); Alanine Aminotransfer ALT/SGPT 118 U/L (13-56); Albumin, Serum 3.6 g/dL (3.2-5.0); Alkaline Phosphatase 171 U/L (45-117); Anion Gap 6 (5-15); BUN 8 mg/dL (7-18); BUN/Creat Ratio 6.7 RATIO (10-20); Calcium,Total 9.1 mg/dL (8.5-10.1); Chloride 107 mmol/L (98-107); EST Glomerular Filtration Rate 55 mL/min (>60); Est Glom Filt Rate - Afr Amer 66 mL/min (>60); Estimated Creatinine Clearance 57.58 ml/min; Globulin 4.1 g/dL (2.2-4.2); Glucose 118 mg/dL (74-106); Lipase 27 U/L (73-393); Potassium 4.9 mmol/L (3.5-5.1); Protein, Total 7.7 g/dL (6.4-8.2); Sodium Level 140 mmol/L (136-145)
[2021-07-08 19:19] LABS: Absolute Lymphocyte Count 1.03 X10^3/uL (0.83-4.51); Absolute Neutrophil Count 6.9 X10^3/uL (2.0-7.7); Basophil# 0.02 X10^3/uL; Basophil% 0.2 % (0-1); Eosinophil# 0.01 X10^3/uL; Eosinophils% 0.1 % (0-5); Hematocrit 46.3 % (37-47); Hemoglobin 15.5 g/dL (12.0-15.0); Lymphocyte # 1.03 X10^3/ul (0.83-4.51); Lymphocyte % 12.2 % (19-41); Mean Corp Hgb Conc 33.5 g/dL (32-36); Mean Corpuscular Hgb 29.6 pg (27.0-32.0); Mean Corpuscular Volume 88.4 fL (81-99); Mean Platelet Vol. 12.5 fl (6.2-12.0); Monocyte# 0.45 X10^3/uL; Monocyte% 5.3 % (0-10); NRBC Flagged by Analyzer 0 % (0-5); Neutrophil # 6.88 X10^3/uL (2.7-7.7); Neutrophil % 81.8 % (47-70); Platelet Count 138 K/mm3 (150-450); RBC Distribution Width CV 12.4 % (11.6-14.6); RBC Distribution Width SD 40.4 fl (35.1-43.9); Red Blood Count 5.24 M/mm3 (4.2-5.4); White Blood Count 8.4 K/mm3 (4.4-11.0)
[2021-07-08] MEDS: HYDROmorphone 0.5 MG/0.5 ML SYRINGE IV ×2 (19:48→21:56)
[2021-07-08 20:30] LABS: Bacteria 0 SEEN /hpf (None Seen); Mucous, Urine 0 SEEN /hpf (<or=2+); Red Blood Cells-Urine 0 SEEN /hpf (0-5); White Blood Cells 0 SEEN /hpf (0-5)
[2021-07-08 20:32] LABS: Color, Urine Yellow (Yellow); Glucose, Dipstick Normal (Normal); Ketone-Dipstick Negative (Negative); Leukocyte Esterase-Dipstick Negative /ul (Negative); Nitrite-Dipstick Negative (Negative); Occult Blood-Urine Negative /ul (Negative); Protein-Dipstick 15 mg/dl (Negative); Urine Bilirubin Dipstick Negative (Negative); Urine Clarity Sl. Cloudy (Clear); Urine Urobilinogen 8 mg/dl (Normal)
[2021-07-08 20:39] LABS: Amorphous Sediment 1+ PHOS; Squamous Epithelial Cells - UA 0-5 SEEN /hpf (5-10)
--- NOTE | 2021-07-08 20:47 | ED.VIS.GI ---
HPI HPI - GI History of Present Illness Chief Complaint: Abd Pain Narrative Narrative: 31-year-old female presenting with epigastric, right upper quad left upper quadrant and left lower quadrant abdominal pain. She describes it as a band across her abdomen wrapping around her back. She states initially she was constipated and states that she took some laxatives given to her by a friend and now she has had multiple episodes of diarrhea. She denies fever. She does admit to nausea and vomiting. She states this is also small blood tingeing in her vomit. No coffee-ground emesis. PFSH PFSH Medical History Anxiety and depression Arthritis Asthma Bipolar 1 disorder GERD (gastroesophageal reflux disease) History of alcohol abuse History of substance abuse Hypertension Hypocalcemia IBS (irritable bowel syndrome) Memory loss Neuropathy Schizophrenia Seasonal allergies Seizures Suicidal thoughts Home Medications omeprazole 20 mg PO DAILY 03/10/18 [History Last Taken 09/11/20] haloperidol 5 mg PO QHS 06/15/19 [History Last Taken 09/10/20] albuterol sulfate 90 mcg/actuation aerosol inhaler 2 puff INHALATION Q6H PRN 11/25/20 [History Last Taken Unknown] folic acid 1 mcg PO DAILY 06/06/21 [History Last Taken Unknown] [id number]-[id number]-GB-thonzonium [Cortisporin-TC] 4 drp LEFT EAR TID 7 Days #10 ml 06/07/21 [Rx Last Taken Unknown] trazodone 100 mg PO DAILY 07/08/21 [History Last Taken Unknown] Allergy/AdvReac Type Severity Reaction Status Date / Time Bleach (Sodium Hypochlorite) Allergy Mild rash Verified 07/08/21 17:50 bacitracin Allergy Unknown Verified 07/08/21 17:50 Latex, Natural Rubber Allergy Rash Verified 07/08/21 17:50 Penicillins Allergy Unknown Verified 07/08/21 17:50 Family History Aunt Diabetes Father Myocardial infarction, Onset Age: 50 Grandmother Myocardial infarction, Onset Age: 70 Other Alcoholism Anxiety and depression Arthritis Asthma Breast cancer CVA (cerebral vascular accident) Cancer Colon cancer Heart disease Hyperlipemia Hypertension Kidney disease Liver disease Osteoporosis Thyroid disorder Surgical History History of breast biopsy History of hernia repair History of removal of cyst Social History Smoking Status: Current every day smoker tobacco type: cigarettes and e-cigarettes Tobacco: How many years used: 22 alcohol intake: current substance use type: marijuana what type of physical activity do you participate in: walking and bicycling ROS ROS ED Constitutional Constitutional ED: Denies chills or fever(s) ENT ENT ED: Denies rhinorrhea or sore throat Cardiovascular Cardiovascular: Denies palpitations Respiratory/Chest Respiratory/Chest: Denies cough, dyspnea or sputum Gastrointestinal Gastrointestinal: Reports abdominal pain, diarrhea, nausea and vomiting Genitourinary Genitourinary ED: Denies dysuria or hematuria Musculoskeletal Musculoskeletal: Denies back pain, myalgias or neck pain Integumentary Denies Abrasions or rash Neurologic Neurologic: Denies headache(s) or paresthesias EXAM Physical Exam Const Vital Signs: 07/08/21 17:51 07/09/21 00:00 Temperature 96.9 F L Temperature Source Temporal Pulse Rate 68 84 Respiratory Rate 19 H 16 Blood Pressure 138/97 H 103/95 H Blood Pressure Mean 110 97 Pulse Ox 96 99 Oxygen Delivery Method Room Air Room Air Positive obese General Appearance ED: NAD; Negative for pallor Nutritional Appearance: obese HEENT Reports moist mucous membranes normocephalic and atraumatic Eyes PERRL and EOMs intact bilaterally General Eye ED: Negative for pale conjunctiva or scleral icterus Resp normal respiratory effort and clear to auscultation bilaterally Cardio regular rate and regular rhythm GI GI Narrative: Right upper quadrant, epigastric, left upper quadrant, left lower quadrant abdominal pain. Neuro CN's II-XII intact bilaterally Sensorium / Orientation: alert, oriented to person, oriented to place and oriented to time Psych mental status grossly normal and thought process normal Skin General Skin Exam: Negative for jaundice or pallor Lesions: no lesions Rashes: no rashes MDM MDM MDM Narrative Medical decision making narrative: Patient presenting with abdominal pain. Described as a band around her abdomen. She appears to be tender in the right upper quadrant, epigastric, left upper quadrant, left lower quadrant. This is all similarly tender. Patient has a recent history of constipation and has been taking laxatives and has been having diarrheal episodes. Lab work shows her white blood cell count is 8.4, hemoglobin 15.5, reticulocyte 46.3, platelets 138. Creatinine is 1.2 and electrolytes are normal. Patient's total bilirubin is 2.2, AST is 145, ALT is 118, alkaline phosphatase 171, lipase 27. Serum hCG is negative.urinalysis is negative for infection. Patient initially had CT of the abdomen pelvis with IV contrast which showed gallbladder polyps versus noncalcified stones in the gallbladder with no other acute intra-abdominal process. I did follow this with an ultrasound of the right upper quadrant which shows gallstones and positive Torrez sign on ultrasound. This was discussed with the surgeon on-call Dr. Brown who came and evaluated the patient and felt it did not seem like it was her gallbladder. He requested that the patient be admitted to internal medicine given her seizure history, and psychiatric history. I did speak with Dr. Barraza who was amenable to admitting the patient. Patient was given a dose of Zosyn in the ED and admitted to the floor in stable condition. Impression: #1. Acute cholelithiasis #2. Transaminitis #3. History of seizure disorder Lab Data Labs: Laboratory Results - last 24 hr 07/08/21 07/08/21 07/08/21 18:45 18:45 18:45 WBC 8.4 RBC 5.24 Hgb 15.5 H Hct 46.3 MCV 88.4 MCH 29.6 MCHC 33.5 RDW Std Deviation 40.4 RDW Coeff of Joao 12.4 Plt Count 138 L MPV 12.5 H Immature Gran % (Auto) 0.400 Neut % (Auto) 81.8 H Lymph % (Auto) 12.2 L [place] % (Auto) 5.3 Eos % (Auto) 0.1 Baso % (Auto) 0.2 Absolute Neuts (auto) 6.9 Absolute Lymphs (auto) 1.03 Nucleated RBC % 0 Sodium 140 Potassium 4.9 Chloride 107 Carbon Dioxide 27.0 Anion Gap 6 BUN 8 Creatinine 1.20 H Estim Creat Clear Calc 57.58 Est GFR (MDRD) Af Amer 66 Est GFR (MDRD) Non-Af 55 L BUN/Creatinine Ratio 6.7 L Glucose 118 H Calcium 9.1 Total Bilirubin 2.20 H AST 145 H ALT 118 H Alkaline Phosphatase 171 H Total Protein 7.7 Albumin 3.6 Globulin 4.1 Albumin/Globulin Ratio 0.9 Lipase 27 L Serum , Qual NEGATIVE Urine Color Urine Clarity Urine pH Ur Specific [place] Urine Protein Urine Glucose (UA) Urine Ketones Urine Occult Blood Urine Nitrite Urine Bilirubin Urine Urobilinogen Ur Leukocyte Esterase Urine RBC Urine WBC Ur Squamous Epith Cells Amorphous Sediment Urine Bacteria Urine Mucus 07/08/21 20:27 WBC RBC Hgb Hct MCV MCH MCHC RDW Std Deviation RDW Coeff of Joao Plt Count MPV Immature Gran % (Auto) Neut % (Auto) Lymph % (Auto) [place] % (Auto) Eos % (Auto) Baso % (Auto) Absolute Neuts (auto) Absolute Lymphs (auto) Nucleated RBC % Sodium Potassium Chloride Carbon Dioxide Anion Gap BUN Creatinine Estim Creat Clear Calc Est GFR (MDRD) Af Amer Est GFR (MDRD) Non-Af BUN/Creatinine Ratio Glucose Calcium Total Bilirubin AST ALT Alkaline Phosphatase Total Protein Albumin Globulin Albumin/Globulin Ratio Lipase Serum , Qual Urine Color Yellow Urine Clarity Sl. Cloudy Urine pH 8.0 Ur Specific [place] 1.010 Urine Protein 15 H Urine Glucose (UA) Normal Urine Ketones Negative Urine Occult Blood Negative Urine Nitrite Negative Urine Bilirubin Negative Urine Urobilinogen 8 H Ur Leukocyte Esterase Negative Urine RBC 0 SEEN Urine WBC 0 SEEN Ur Squamous Epith Cells 0-5 SEEN Amorphous Sediment 1+ PHOS Urine Bacteria 0 SEEN Urine Mucus 0 SEEN Radiography Diagnostic Testing: Radiology Impression Abdomen/Pelvis CT 07/08/21 18:23 IMPRESSION: Question tiny gallbladder polyps or noncalcified stones. Ultrasound would be helpful for further evaluation if indicated Findings consistent with nonspecific colitis. Scattered diverticular changes of the colon without evidence for acute diverticulitis Electronically Signed: Rodríguez Hernandez MD at 20:35 EDT , Service support , Gallbladder Ultrasound 07/08/21 21:39 IMPRESSION: Enlarged mildly fatty infiltrated liver.. Cholelithiasis with positive Torrez''s sign which may be consistent with acute cholecystitis. HIDA scan would be useful for confirmation if clinically warranted Electronically Signed: Rodríguez Hernandez MD at 22:36 EDT , Service support , Discharge Plan Triage Chief Complaint: Abd Pain ED Provider: Eduar Hannah Dx/Rx/DC Orders Prescriptions: No Action albuterol sulfate [Ventolin HFA] 90 mcg/actuation HFA aerosol inhaler 2 puff INHALATION Q6H PRN (Reason: Shortness Of Breath) RF: 0 omeprazole 20 MG capsule 20 mg PO DAILY RF: 0 haloperidol 5 tablet 5 mg PO QHS RF: 0 folic acid 1 mg tablet 1 mcg PO DAILY RF: 0 Cortisporin-TC 3.3-3-10-0.5 mg/mL drops,suspension 4 drp LEFT EAR TID 7 Days Qty: 10 RF: 0 trazodone 100 mg tablet 100 mg PO DAILY RF: 0 Primary Care Provider: Gayatri Grubbs
--- NOTE | 2021-07-08 21:39 | US_ITS ---
STUDY: ABDOMINAL ULTRASOUND - RIGHT UPPER QUADRANT REASON FOR VISIT: Female, 31 years old abdominal pain TECHNIQUE: Ultrasound evaluation of the right upper quadrant was performed with real-time and static perez-scale imaging. TECHNICAL QUALITY: Adequate. COMPARISON: None. FINDINGS: Liver: The liver measures 20.2 cm. There is mildly diffusely increased echogenicity of the liver. The bile ducts are within normal limits. There is hepatic color flow. The direction of portal flow is hepatopetal. There is no demonstrated mass lesion. Gallbladder: Normal distended gallbladder. The gallbladder wall measures 5 mm. There is a positive sonographic Torrez''s sign. There is no pericholecystic fluid. There are multiple gallstones. Common Bile Duct (C.B.D.): The common bile duct measures 5 mm. Pancreas: Normal size of the head, body and tail of the pancreas. There is mildly diffusely increased echogenicity of the pancreas. There is no demonstrated pancreatic mass or cyst. Right Kidney: Normal size of the right kidney. The right kidney measures 9.5 x 5.3 x 4.5 cm. Normal renal cortex. The right cortex measures 1 cm. There is no demonstrated renal mass or cyst. There is no right hydronephrosis. US/Gallbladder IMPRESSION: Enlarged mildly fatty infiltrated liver.. Cholelithiasis with positive Torrez''s sign which may be consistent with acute cholecystitis. HIDA scan would be useful for confirmation if clinically warranted Electronically Signed: Rodríguez Hernandez MD at 22:36 EDT , Service support ,
[2021-07-09] VITALS (21 sets, daily range): BP systolic 103–150; BP diastolic 67–98; PULSE 63–92; RESP 15–18; TEMP 36.2–37; O2SAT 86–100; BMI 51.7
--- NOTE | 2021-07-09 00:30 | PCM.HP.STD ---
HPI - General HPI Narrative MARIELLA CHRISTINE, is a 31 F who presents to [facility] ER with complaints of epigastric abdominal pain and a band?like distribution. She states this pain began on 07/07/2021 following a meal of spaghetti and pizza. This pain is associated with nausea and vomiting. She said the emesis was largely dry heaves and acidic. She states that she has had this pain with a much milder intensity in the distant past following similar greasy meals. In the emergency room Ms. Christine' lab work is remarkable for elevated LFTs, alkaline phosphatase, and a T bili of 2.2. Notably the patient's white blood cell count was within normal limits but did demonstrate a left shift with the differential. Furthermore imaging is consistent with a mildly dilated gallbladder wall on CT which was confirmed on reflex ultrasound and showed a mildly dilated common bile duct as well. Patient has a history of a remote ventral hernia repair which she says was related to a traumatic accident sustained as a child. Mesh was used in the repair of this hernia. Patient also has a significant mental health history and reports frequent blackout seizures (the last one being earlier this summer). Ms. Christine previously dealt with alcohol abuse but states her last drink was May 30, 2021. Lastly, patient relates some difficulties with anesthesia on her most recent OR and reports waking up during the procedure [facility] Medical History Anxiety and depression Arthritis Asthma Bipolar 1 disorder GERD (gastroesophageal reflux disease) History of alcohol abuse History of substance abuse Hypertension Hypocalcemia IBS (irritable bowel syndrome) Memory loss Neuropathy Schizophrenia Seasonal allergies Seizures Suicidal thoughts Home Medications omeprazole 20 mg PO DAILY 03/10/18 [History Last Taken 09/11/20] haloperidol 5 mg PO QHS 06/15/19 [History Last Taken 09/10/20] albuterol sulfate 90 mcg/actuation aerosol inhaler 2 puff INHALATION Q6H PRN 11/25/20 [History Last Taken Unknown] folic acid 1 mcg PO DAILY 06/06/21 [History Last Taken Unknown] jyqfmmtl-aeoaqu-ZI-thonzonium [Cortisporin-TC] 4 drp LEFT EAR TID 7 Days #10 ml 06/07/21 [Rx Last Taken Unknown] trazodone 100 mg PO DAILY 07/08/21 [History Last Taken Unknown] Allergy/AdvReac Type Severity Reaction Status Date / Time Bleach (Sodium Hypochlorite) Allergy Mild rash Verified 07/08/21 17:50 bacitracin Allergy Unknown Verified 07/08/21 17:50 Latex, Natural Rubber Allergy Rash Verified 07/08/21 17:50 Penicillins Allergy Unknown Verified 07/08/21 17:50 Family History Aunt Diabetes Father Myocardial infarction, Onset Age: 50 Grandmother Myocardial infarction, Onset Age: 70 Other Alcoholism Anxiety and depression Arthritis Asthma Breast cancer CVA (cerebral vascular accident) Cancer Colon cancer Heart disease Hyperlipemia Hypertension Kidney disease Liver disease Osteoporosis Thyroid disorder Surgical History History of breast biopsy History of hernia repair History of removal of cyst Social History Smoking Status: Current every day smoker tobacco type: cigarettes and e-cigarettes Tobacco: How many years used: 22 alcohol intake: current substance use type: marijuana what type of physical activity do you participate in: walking and bicycling Vital Signs Vital Signs Vital Signs: 07/08/21 17:51 07/09/21 00:00 Temperature 96.9 F L Temperature Source Temporal Pulse Rate 68 84 Respiratory Rate 19 H 16 Blood Pressure 138/97 H 103/95 H Blood Pressure Mean 110 97 Pulse Ox 96 99 Oxygen Delivery Method Room Air Room Air Weight Weight: 301 lb 5.95 oz Body Mass Index (BMI) 51.7 Physical Exam Const alert and oriented x3 General Appearance: cooperative Resp normal respiratory effort GI non-distended GI Narrative: Longitudinal, supraumbilical scar now well-healed. Morbid obesity Palpation: tender epigastric, RUQ (Right upper quadrant tenderness is most significant) and Torrez's sign Results Lab / Micro Data Result Diagrams: 07/08/21 18:45 07/08/21 18:45 Labs: Laboratory Results - last 24 hr 07/08/21 18:45: WBC 8.4, RBC 5.24, Hgb 15.5 H, Hct 46.3, MCV 88.4, MCH 29.6, MCHC 33.5, RDW Std Deviation 40.4, RDW Coeff of Joao 12.4, Plt Count 138 L, MPV 12.5 H, Immature Gran % (Auto) 0.400, Neut % (Auto) 81.8 H, Lymph % (Auto) 12.2 L, [place] % (Auto) 5.3, Eos % (Auto) 0.1, Baso % (Auto) 0.2, Absolute Neuts (auto) 6.9, Absolute Lymphs (auto) 1.03, Nucleated RBC % 0 07/08/21 18:45: Sodium 140, Potassium 4.9, Chloride 107, Carbon Dioxide 27.0, Anion Gap 6, BUN 8, Creatinine 1.20 H, Estim Creat Clear Calc 57.58, Est GFR (MDRD) Af Amer 66, Est GFR (MDRD) Non-Af 55 L, BUN/Creatinine Ratio 6.7 L, Glucose 118 H, Calcium 9.1, Total Bilirubin 2.20 H, AST 145 H, ALT 118 H, Alkaline Phosphatase 171 H, Total Protein 7.7, Albumin 3.6, Globulin 4.1, Albumin/Globulin Ratio 0.9, Lipase 27 L 07/08/21 18:45: Serum , Qual NEGATIVE 07/08/21 20:27: Urine Color Yellow, Urine Clarity Sl. Cloudy, Urine pH 8.0, Ur Specific [place] 1.010, Urine Protein 15 H, Urine Glucose (UA) Normal, Urine Ketones Negative, Urine Occult Blood Negative, Urine Nitrite Negative, Urine Bilirubin Negative, Urine Urobilinogen 8 H, Ur Leukocyte Esterase Negative, Urine RBC 0 SEEN, Urine WBC 0 SEEN, Ur Squamous Epith Cells 0-5 SEEN, Amorphous Sediment 1+ PHOS, Urine Bacteria 0 SEEN, Urine Mucus 0 SEEN Radiology Impression Abdomen/Pelvis CT 07/08/21 18:23 IMPRESSION: Question tiny gallbladder polyps or noncalcified stones. Ultrasound would be helpful for further evaluation if indicated Findings consistent with nonspecific colitis. Scattered diverticular changes of the colon without evidence for acute diverticulitis Electronically Signed: Rodríguez Hernandez MD at 20:35 EDT , Service support , Gallbladder Ultrasound 07/08/21 21:39 IMPRESSION: Enlarged mildly fatty infiltrated liver.. Cholelithiasis with positive Torrez''s sign which may be consistent with acute cholecystitis. HIDA scan would be useful for confirmation if clinically warranted Electronically Signed: Rodríguez Hernandez MD at 22:36 EDT , Service support , Assessment & Plan Assessment/Plan (1) Abdominal pain: QUALIFIERS: Abdominal location: right upper quadrant Qualified Code(s): R10.11 - Right upper quadrant pain PLAN: Patient's physical exam and history are consistent with a gallbladder etiology for her pain symptoms. We will therefore plan for laparoscopic cholecystectomy later this morning. ?Maintain n.p.o. in anticipation of procedure ?Supplement with IV fluid hydration given some laboratory evidence of dehydration and reports of inability to tolerate p.o. ?Provide with antibiotic coverage (given penicillin allergic Cipro Flagyl is reasonable) With patient's significant psych/seizure histories appreciate medicine's input with this patient during the perioperative phase (2) Abnormal LFTs (liver function tests): PLAN: LFTs are elevated and a cholestatic pattern. We will plan for intraoperative cholangiogram during the above cholecystectomy. Possibility of ERCP discussed with patient depending on the results of the study. ?Antibiotic coverage as above Charges/Coding Visit Charges Inpatient E&M: 39905 Init Hosp L3
--- NOTE | 2021-07-09 00:31 | EKG12_ITS ---
Test Reason : PRE-OP Blood Pressure : / mmHG Vent. Rate : 068 BPM Atrial Rate : 068 BPM P-R Int : 138 ms QRS Dur : 080 ms QT Int : 434 ms P-R-T Axes : 025 071 031 degrees QTc Int : 461 ms Sinus rhythm with marked sinus arrhythmia Low voltage QRS Confirmed by TERESA MUELLER, ISIDRO ([id number]), international editorial producer RAMONITA GÓMEZ ([id number]) on 07/13/2021 8:24:38 AM Referred By: CECELIA Confirmed By:ISIDRO MOORE MD
[2021-07-09] MEDS: metroNIDAZOLE 500 MG/100 ML BAG 100 MG IV ×3 (00:53→21:22)
--- NOTE | 2021-07-09 01:14 | PCM.HP.STD ---
HPI - General HPI Narrative MARIELLA CHRISTINE, is a 31 F with multiple comorbidities as listed below including schizophrenia bipolar 1 came to ER with right upper quadrant abdominal pain, nausea and vomiting for 2 days. Abdominal pain started as a band across right upper quadrant with radiation to the back, right shoulder, intermittent colicky nature. She states what ever she drinks she vomits out. Denies fever or chills. She also had constipation which has resolved with MiraLAX. Denies burning micturition. Denies hematemesis, melena. She states he has a seizure about 4 episodes in succession in March 2021 and is on benztropine for seizure control but this is not antiepileptic medication. It seems she did not follow with a neurologist. Patient is also morbidly obese, BMI 51.7 kg/m? and she states she was 400 pounds now currently 301 pounds. Labs reviewed. Right knee elevated 1.2. Transaminases and alkaline phosphatase elevated, total bilirubin 2.2. Serum test negative. CT abdomen showed questionable tiny gallbladder polyps or noncalcified stones. Patient had gallbladder ultrasound which shows cholelithiasis with positive Torrez sign [facility] Medical History Anxiety and depression Arthritis Asthma Bipolar 1 disorder GERD (gastroesophageal reflux disease) History of alcohol abuse History of substance abuse Hypertension Hypocalcemia IBS (irritable bowel syndrome) Memory loss Neuropathy Schizophrenia Seasonal allergies Seizures Suicidal thoughts Home Medications omeprazole 20 mg PO DAILY 03/10/18 [History Last Taken 09/11/20] haloperidol 5 mg PO QHS 06/15/19 [History Last Taken 09/10/20] albuterol sulfate 90 mcg/actuation aerosol inhaler 2 puff INHALATION Q6H PRN 11/25/20 [History Last Taken Unknown] folic acid 1 mcg PO DAILY 06/06/21 [History Last Taken Unknown] sfztgjjf-axozdf-ET-thonzonium [Cortisporin-TC] 4 drp LEFT EAR TID 7 Days #10 ml 06/07/21 [Rx Last Taken Unknown] trazodone 100 mg PO DAILY 07/08/21 [History Last Taken Unknown] Allergy/AdvReac Type Severity Reaction Status Date / Time Bleach (Sodium Hypochlorite) Allergy Mild rash Verified 07/08/21 17:50 bacitracin Allergy Unknown Verified 07/08/21 17:50 Latex, Natural Rubber Allergy Rash Verified 07/08/21 17:50 Penicillins Allergy Unknown Verified 07/08/21 17:50 Family History Aunt Diabetes Father Myocardial infarction, Onset Age: 50 Grandmother Myocardial infarction, Onset Age: 70 Other Alcoholism Anxiety and depression Arthritis Asthma Breast cancer CVA (cerebral vascular accident) Cancer Colon cancer Heart disease Hyperlipemia Hypertension Kidney disease Liver disease Osteoporosis Thyroid disorder Surgical History History of breast biopsy History of hernia repair History of removal of cyst Social History Smoking Status: Current every day smoker tobacco type: cigarettes and e-cigarettes Tobacco: How many years used: 22 alcohol intake: current substance use type: marijuana what type of physical activity do you participate in: walking and bicycling ROS ROS Narrative Constitutional: Morbid obesity, generalized weakness and pain HEENT: Reports systems reviewed and no addt'l complaints, except as documented Respiratory/Chest: Denies chest pain, shortness of breath at rest or with exertion Gastrointestinal: As mentioned in HPI. Denies coffee ground emesis, hematemesis or melena Genitourinary: Denies burning urination or new urinary tract symptoms Musculoskeletal: Mild nonpitting ankle edema. Reports joint pain and limited range of motion Neurologic: Denies seizure-like activity skin: No ulcer. No rash Endocrinology: Reports systems reviewed and no addt'l complaints, except as documented Hematologic/Lymphatic: Reports systems reviewed and no addt'l complaints, except as documented Rest 12 ROS are negative except as mentioned in HPI Vital Signs Vital Signs Vital Signs: 07/08/21 17:51 07/09/21 00:00 Temperature 96.9 F L Temperature Source Temporal Pulse Rate 68 84 Respiratory Rate 19 H 16 Blood Pressure 138/97 H 103/95 H Blood Pressure Mean 110 97 Pulse Ox 96 99 Oxygen Delivery Method Room Air Room Air Weight Weight: 301 lb 5.95 oz Body Mass Index (BMI) 51.7 Physical Exam Narrative General: Alert, Oriented x3, Cooperative HEENT: Atraumatic, PERRLA, EOMI, Normocephalic Oral: No Gingival or Mucosal Lesions/ Ulcerations Neck: Supple, No JVD, Negative Carotid Bruits Lungs: Air entry diminished in bilateral lung bases. No crepitation/rhonchi Cardiovascular: Regular rate, Regular Rhythm, Normal S1, Normal S2, No murmurs Abdomen: Bowel Sounds Present, Soft, tenderness and guarding present in right upper quadrant. No rigidity. Fat abdomen. : No renal angle tenderness. No suprapubic tenderness. Extremities: Mild bilateral ankle nonpitting edema, Capillary Refill Less than 3 Seconds Skin: No rashes, No breakdown Musculoskeletal: No Tenderness to Palpation of Joints or Extremities Neurological: Cranial nerves II-XII grossly intact, DTR 2+/4 and Symmetrical, Neuro grossly intact Psych/Mental Status: Normal Affect, Appropriate. Results Lab / Micro Data Result Diagrams: 07/08/21 18:45 07/08/21 18:45 Labs: Laboratory Results - last 24 hr 07/08/21 18:45: WBC 8.4, RBC 5.24, Hgb 15.5 H, Hct 46.3, MCV 88.4, MCH 29.6, MCHC 33.5, RDW Std Deviation 40.4, RDW Coeff of Joao 12.4, Plt Count 138 L, MPV 12.5 H, Immature Gran % (Auto) 0.400, Neut % (Auto) 81.8 H, Lymph % (Auto) 12.2 L, Day % (Auto) 5.3, Eos % (Auto) 0.1, Baso % (Auto) 0.2, Absolute Neuts (auto) 6.9, Absolute Lymphs (auto) 1.03, Nucleated RBC % 0 07/08/21 18:45: Sodium 140, Potassium 4.9, Chloride 107, Carbon Dioxide 27.0, Anion Gap 6, BUN 8, Creatinine 1.20 H, Estim Creat Clear Calc 57.58, Est GFR (MDRD) Af Amer 66, Est GFR (MDRD) Non-Af 55 L, BUN/Creatinine Ratio 6.7 L, Glucose 118 H, Calcium 9.1, Total Bilirubin 2.20 H, AST 145 H, ALT 118 H, Alkaline Phosphatase 171 H, Total Protein 7.7, Albumin 3.6, Globulin 4.1, Albumin/Globulin Ratio 0.9, Lipase 27 L 07/08/21 18:45: Serum , Qual NEGATIVE 07/08/21 20:27: Urine Color Yellow, Urine Clarity Sl. Cloudy, Urine pH 8.0, Ur Specific [place] 1.010, Urine Protein 15 H, Urine Glucose (UA) Normal, Urine Ketones Negative, Urine Occult Blood Negative, Urine Nitrite Negative, Urine Bilirubin Negative, Urine Urobilinogen 8 H, Ur Leukocyte Esterase Negative, Urine RBC 0 SEEN, Urine WBC 0 SEEN, Ur Squamous Epith Cells 0-5 SEEN, Amorphous Sediment 1+ PHOS, Urine Bacteria 0 SEEN, Urine Mucus 0 SEEN Radiology Impression Abdomen/Pelvis CT 07/08/21 18:23 IMPRESSION: Question tiny gallbladder polyps or noncalcified stones. Ultrasound would be helpful for further evaluation if indicated Findings consistent with nonspecific colitis. Scattered diverticular changes of the colon without evidence for acute diverticulitis Electronically Signed: Rodríguez Hernandez MD at 20:35 EDT , Service support , Gallbladder Ultrasound 07/08/21 21:39 IMPRESSION: Enlarged mildly fatty infiltrated liver.. Cholelithiasis with positive Torrez''s sign which may be consistent with acute cholecystitis. HIDA scan would be useful for confirmation if clinically warranted Electronically Signed: Rodríguez Hernandez MD at 22:36 EDT , Service support , Assessment & Plan Assessment/Plan (1) Acute cholecystitis: PLAN: MARIELLA CHRISTINE, is a 31 F with multiple comorbidities as listed below including schizophrenia bipolar 1 came to ER with right upper quadrant abdominal pain, nausea and vomiting for 2 days consistent with acute cholecystitis with cholelithiasis. 1. Acute cholecystitis with cholelithiasis with elevated liver chemistry: Patient is being admitted on MedSur floor. Keep patient n.p.o. IV fluid Ringer lactate. On Cipro IV. Patient is allergic to penicillin. General surgery Dr. Brown is consulted and is planning for lap maribell tomorrow a.m. Perioperative surgical risk NSQIP calculated and attached to the chart. Patient has average risk of serious complication, any complication or cardiac complication but surgical site infection is above average. 2. Psychiatric history: Patient has history of schizophrenia, bipolar 1 disorder, PTSD: Home medications continued. 3. Chronic epilepsy disorder: Exact type and etiology unclear: It seems patient has complex partial seizure with staring look, does not respond as she described when she had seizure in March 2021. Currently she does not had recent episode of seizure. 4. Other comorbidities include GERD, history of alcohol use and substance use, hypertension, irritable bowel syndrome: Home medication reconciliation done VTE prophylaxis: Heparin 5000 units subcutaneous 3 times daily. Hold the morning dose prior to surgery. Charges/Coding Visit Charges Inpatient E&M: 18503 Init Hosp L3
[2021-07-09 01:39] LABS: Magnesium 2.2 mg/dL (1.6-2.6)
[2021-07-09] MEDS: Ciprofloxacin 200 MG/100 ML BAG 100 MG IV (03:01)
[2021-07-09] MEDS: 0.9% Normal Saline 1,000 ML 100 ML IV (03:01)
[2021-07-09] MEDS: 0.9% Saline Lock 10 ML Syringe IV ×3 (03:02→14:51)
[2021-07-09] MEDS: Heparin Injection (Vial) 5,000 UNIT/ML VIAL 5000 UNIT SC ×3 (03:02→22:49)
[2021-07-09] MEDS: HYDROmorphone 0.5 MG/0.5 ML SYRINGE IV ×2 (03:02→14:51)
[2021-07-09] MEDS: Ondansetron 4 MG/2 ML Vial IV (03:02)
--- NOTE | 2021-07-09 07:41 | NURSING ---
Pt to OR with OR trasnporters. OR staff made aware of lab unable to get AM labs.
--- NOTE | 2021-07-09 07:43 | NURSING ---
Patient's mother, Sanna ([phone]), notified of surgery per patient request.
--- NOTE | 2021-07-09 08:45 | GALL_PTH ---
PATIENT: MARIELLA CHRISTINE LOC: MS3 U#:[id number] AGE/SX: 31/F ROOM: MS318 RE07/09/[address]: Dr. Yue Dawson MD : 1990 BED: 1 DIS: 07/10/2021 SPEC #: [id number] RECD: 07/09/21 10:35 STATUS: SCOTT GRANT #: [id number] JERAD: 07/09/21 08:[address]: Jani Brown DEPT: SURGICAL PATHOLOGY RECD BY: Mary Velázquez ENTERED: 07/09/21 10:49 SP TYPE: GALLBLADDE VALDEMAR DR: MD Dr. Yue Hadley MD Dr. Prakash Chand, MD Tissues: Gallbladder, NOS Procedures: Surgery Specimen Level III HEADER OPERATION: Laparoscopic cholecystectomy with IOC PRE-OP DIAGNOSIS: Right upper quadrant pain TISSUE SUBMITTED: Gallbladder MICROSCOPIC DIAGNOSIS Gallbladder, cholecystectomy: Chronic cholecystitis and cholelithiasis. AM:maritza 07/12/2021 MICROSCOPIC DESCRIPTION Slides are reviewed. GROSS DESCRIPTION Received is one container labeled with the patient's name and designated gallbladder. The specimen consists of a gallbladder measuring 9 x 3.5 x 3.5 cm. The external surface is smooth and glistening. Focally, it is granular, hemorrhagic and contains cautery artifact. The lumen of the gallbladder contains yellow-green mucoid bile and multiple yellow calculi averaging 0.7 cm in greatest dimension. The mucosa is bile-stained and without any mass lesions. The gallbladder wall averages 0.4 cm in thickness and is free of mass lesions. Director Of Automation sections of the gallbladder and the cystic duct at margin of resection are submitted in one cassette. / AM:maritza 07/09/21 TC:3 CPT: 05737
--- NOTE | 2021-07-09 09:00 | RAD_ITS ---
STUDY: INTRAOPERATIVE CHOLANGIOGRAM. REASON FOR EXAM: Female, 31 years old. ABD PAIN FLUOROSCOPY TIME (if supplied): ( 45 seconds ) minutes/seconds. A cine loop of 193 images were submitted. TECHNIQUE: An intraoperative glandular was performed by the surgeon. Imaging was submitted. COMPARISON: None. FINDINGS: There is dilatation of the intrahepatic biliary ducts. The common bile duct is dilated. An intraluminal filling defect is seen in the distal portion of the common bile duct and keep with retained calculus. No full of contrast is seen into the duodenum. RAD/Cholangiogram/ O R,Initial IMPRESSION: Dilated intra and extrahepatic bile ducts with evidence of a calculus in the distal portion of the common bile duct. Electronically Signed: Isreal Fontaine MD at 10:39 EDT , Service support ,
[2021-07-09] MEDS: Lactated Ringers 1,000 ML 100 ML IV ×2 (09:16→13:08)
[2021-07-09] MEDS: Bupivacaine Mpf 0.5% 30 ML VIAL (10:05)
--- NOTE | 2021-07-09 10:13 | OP.PCM_ITS ---
Problems Associated Problem List Diagnoses (1) Acute cholecystitis: (2) Abnormal LFTs (liver function tests): (3) Morbid obesity: Report of Operation Date of Procedure: 07/09/21 Pre-Operative Diagnosis: acute cholecystitis abnormal liver function tests Post-Operative Diagnosis: Acute cholecystitis Abnormal liver function tests Choledocholithiasis Surgery/Procedure Performed:: Dr. Jani Brown Description of Surgical Findings:: ?Acute inflammation of the gallbladder with a edematous rind ?Normal gallbladder with single cystic duct and anterior cystic artery ?Cholangiogram demonstrating normal retrograde filling into the right and left hepatic ducts but with obstruction for antegrade filling into the duodenum no filling defect Surgeon: Jani Brown general dentist/owner: Pat Meyer Type of Anesthesia: General and Local Anesthesiologist: Melquiades Dinero Specimen's removed: Gallbladder Drains: None Estimated Blood Loss (mL): 25 Description of Procedure: After proper identification in the preoperative holding area the patient was brought to the operating room where she was positioned supine on the operating room table. Preoperatively, SCDs were applied and antibiotics were administered. General anesthesia was then induced. Patient's abdomen was prepped and draped in usual sterile fashion. A formal timeout was conducted to confirm both patient and the procedure. Procedure was begun with a Veress entry at Caldera's point in the left upper quadrant. Pneumoperitoneum was established at 15 mmHg. A 5 mm Visiport trocar was then introduced in the right upper quadrant to access the abdomen given the patient's prior history of a supraumbilical hernia repair with mesh. The very site was inspected and there was no signs of off target insufflation or injury to the viscera below. Therefore 2X12 mm trochars were placed in the paramedian position above the umbilicus (just lateral to the patient's mesh hernia repair) and in the subxiphoid position. A second 5 mm trocar was also placed more laterally in the right upper quadrant just anterior to the line of the hepatic flexure. The gallbladder was visualized with acute inflammation. The gall bladder fundus was then grasped and elevated cephalad. Then, using careful dissection the peritoneum was opened and the structures of the hepatocystic triangle were delineated. Once the critical view of safety was obtained, the cystic duct was clipped proximally and a duct sodomy was made with endoscopic callum. A 14 Serbian Angiocath needle was placed in the epigastrium just superior to the area of the gallbladder and a cholangiocatheter was fed through the opening. A cholangiogram was obtained after clipping the cholangiocatheter in place. This showed normal retrograde flow to the right anterior and posterior hepatic ducts as well as the left hepatic duct. However antegrade there was an obstruction to free flow in the duodenum demarcated by a filling defect. An additional attempt at flushing with saline was made, however this did not relieve the obstruction on repeat fluoroscopy. A total of 18 mL of contrast were used for this imaging. The cholangiogram portion of the case was concluded and the cystic duct as well as the cystic artery were triply clipped and sharply divided. The gallbladder was then removed from the gallbladder fossa with the use of electrocautery. Selective electrocautery was used to obtain hemostasis in the gallbladder fossa. The gallbladder was placed in an Endo Catch bag and removed from the peritoneum. Morison's pouch was irrigated and the effluent was suctioned free of the peritoneum. Hemostasis was again confirmed. The 12 mm port sites were closed using a Dylan-Armand suture passer with a #1 PDS suture under laparoscopic guidance. A total of 30 mL of anesthetic was injected at the port sites for postoperative pain control. The skin of each port site was then closed in subcuticular fashion using 4-0 Monocryl. Steri-Strips and bandages were applied as dressings. Patient tolerated the procedure well without any apparent complications. On emergence from their anesthetic the patient was taken to PACU for ongoing recovery. Admit VTE Documentation VTE Present on Admission: Yes VTE Mechan Device Prophylaxis: SCD's Procedures Digestive 40xxx-49xxx: 51720 CHOLECYSTECTOMY; WITH CHOLANGIOGRAPHY
[2021-07-09] MEDS: Ciprofloxacin 400 MG/200 ML BAG 200 MG IV ×2 (13:08→22:53)
--- NOTE | 2021-07-09 13:35 | CASEMGMT ---
SEAN DOYLE Assessment: Face to Face with pt for initial transition planning/care coordination assessment. SEAN DOYLE introduced self and role at [facility], pt voices understanding and consents to assessment. Pt is O x4 and answers all questions appropriately at this time. Pt lying in bed in no distress, with eyes closing through assessment. Care providers, pharmacy, and demographics verified/updated. Admitting Dx: acute choleycystitis PCP:Romie Specialists:Pt denies having any specialists. [facility] Insurance: [facility] Prescription Benefit: yes LW/HPOA: Pt denies having a LW/DPOA. LNOK: Darwin Prado, top case assembler at [facility]; yessica Bhatti other Living Arrangements: Pt lives alone in a ground level apt with no steps to enter. Transportation: Pt states she does not drive. She counts on family and friends for transportation to medical appts. DME/HHC: Pt denies having any DME in the home, no hx of HHC. Pt states no concerns with going home at time of dc. Pt states no further concerns/needs. CM to follow. Advised pt to ask CM if any further question/concerns/needs arise, voices understanding. Pt Goal: Home Plan: Home
--- NOTE | 2021-07-09 14:09 | PCM.PN.HOSP ---
Documented by User: Magaly Melara [employer], [employer] 07/09/21 14:30 Subjective Subjective Patient seen and examined. Underwent cholecystectomy. Resting comfortably in bed. Family at bedside. Resting with eyes closed however states pain is 7 out of 10. Denies nausea, vomiting. Objective Data Objective Data Vital Signs: Vital Signs Temp Pulse Resp BP Pulse Ox 98 F 64 16 143/83 H 95 07/09/21 12:55 07/09/21 12:55 07/09/21 12:55 07/09/21 12:55 07/09/21 12:55 Oxygen Flow Rate (L/min) 2 Oxygen Delivery Method Nasal Cannula Weight: 301 lb 9.478 oz Body Mass Index (BMI) 51.7 Intake & Output: Intake and Output for Last 24 Hours 07/07/21 07/08/21 07/09/21 23:59 23:59 23:59 Intake Total 1000 / 1000 2200 / 2200 Output Total 0 / 0 Balance 1000 / 1000 2200 / 2200 Lab / Micro Data Result Diagrams: 07/08/21 18:45 07/08/21 18:45 Labs: Laboratory Results - last 24 hr 07/08/21 18:45: WBC 8.4, RBC 5.24, Hgb 15.5 H, Hct 46.3, MCV 88.4, MCH 29.6, MCHC 33.5, RDW Std Deviation 40.4, RDW Coeff of Joao 12.4, Plt Count 138 L, MPV 12.5 H, Immature Gran % (Auto) 0.400, Neut % (Auto) 81.8 H, Lymph % (Auto) 12.2 L, [place] % (Auto) 5.3, Eos % (Auto) 0.1, Baso % (Auto) 0.2, Absolute Neuts (auto) 6.9, Absolute Lymphs (auto) 1.03, Nucleated RBC % 0 07/08/21 18:45: Sodium 140, Potassium 4.9, Chloride 107, Carbon Dioxide 27.0, Anion Gap 6, BUN 8, Creatinine 1.20 H, Estim Creat Clear Calc 57.58, Est GFR (MDRD) Af Amer 66, Est GFR (MDRD) Non-Af 55 L, BUN/Creatinine Ratio 6.7 L, Glucose 118 H, Calcium 9.1, Total Bilirubin 2.20 H, AST 145 H, ALT 118 H, Alkaline Phosphatase 171 H, Total Protein 7.7, Albumin 3.6, Globulin 4.1, Albumin/Globulin Ratio 0.9, Lipase 27 L 07/08/21 18:45: Serum , Qual NEGATIVE 07/08/21 18:45: Magnesium 2.2 07/08/21 20:27: Urine Color Yellow, Urine Clarity Sl. Cloudy, Urine pH 8.0, Ur Specific [place] 1.010, Urine Protein 15 H, Urine Glucose (UA) Normal, Urine Ketones Negative, Urine Occult Blood Negative, Urine Nitrite Negative, Urine Bilirubin Negative, Urine Urobilinogen 8 H, Ur Leukocyte Esterase Negative, Urine RBC 0 SEEN, Urine WBC 0 SEEN, Ur Squamous Epith Cells 0-5 SEEN, Amorphous Sediment 1+ PHOS, Urine Bacteria 0 SEEN, Urine Mucus 0 SEEN Radiography Diagnostic Testing: Radiology Impression Abdomen/Pelvis CT 07/08/21 18:23 IMPRESSION: Question tiny gallbladder polyps or noncalcified stones. Ultrasound would be helpful for further evaluation if indicated Findings consistent with nonspecific colitis. Scattered diverticular changes of the colon without evidence for acute diverticulitis Electronically Signed: Rodríguez Hernandez MD at 20:35 EDT , Service support , Gallbladder Ultrasound 07/08/21 21:39 IMPRESSION: Enlarged mildly fatty infiltrated liver.. Cholelithiasis with positive Torrez''s sign which may be consistent with acute cholecystitis. HIDA scan would be useful for confirmation if clinically warranted Electronically Signed: Rodríguez Hernandez MD at 22:36 EDT , Service support , Cholangiogram 07/09/21 09:00 IMPRESSION: Dilated intra and extrahepatic bile ducts with evidence of a calculus in the distal portion of the common bile duct. Electronically Signed: Isreal Fontaine MD at 10:39 EDT , Service support , Physical Exam Const alert, oriented x3 and no apparent distress Orientation / Consciousness: awake, oriented to person, oriented to place and oriented to time HEENT normocephalic and moist oral mucous membranes Eyes PERRL, EOMs intact bilaterally and conjunctivae normal Neck no lymphadenopathy Resp normal respiratory effort and clear to auscultation bilaterally Cardio regular rate, regular rhythm and no murmurs Peripheral Pulses: pulses 2+ throughout GI normal to inspection, nondistended, normoactive bowel sounds, non-tender and non-distended Palpation: tender other (Postoperative) Extremity normal to inspection Skin no rashes or lesions noted Lesions: no lesions Rashes: no rashes Trauma: no lacerations or abrasions Neuro CN's II-XII intact bilaterally, no focal motor deficits, no sensory deficits noted and deep tendon reflexes 2+ bilaterally Psych mental status grossly normal and affect normal Assessment & Plan Assessment/Plan (1) Acute cholecystitis: PLAN: 1. Acute cholecystitis with choledocholithiasis-status post cholecystectomy with cholangiography 07/09/2021. Management per general surgery. As needed pain regimen. On Cipro and Flagyl. As needed antiemetics. 2. History of schizophrenia/bipolar 1 disorder/PTSD-continue home medication regimen. 3. Chronic epilepsy-not on antiepileptic regimen. 4. Chronic kidney disease stage IIIa-at baseline, trend BMP. 5. History of alcohol use/substance use-denies recent use. 6. Hypertension-stable, not on regimen. As needed hydralazine for systolic blood pressure greater than 160. 7. GERD-continue PPI. DVT prophylaxis-Heparin subcu This patient was seen by NORMA Steiner under the supervision of Dr. Dawson. Documented by User: Dr. Yue Dawson MD 07/09/21 15:57 Objective Data Lab / Micro Data Result Diagrams: 07/08/21 18:45 07/08/21 18:45 Charges/Coding Addendum Addendum: Patient seen by Magaly GREEN under my supervision Patient seen and examined. She was admitted with a complaint of abdominal pain, and found to have acute cholecystitis. She had laparoscopic cholecystectomy today. Patient seen after cholecystectomy. Pain is fairly well controlled, review of systems is otherwise negative. She has remained hemodynamically stable. o/e: Const alert, oriented x3 and no apparent distress, morbidly obese Orientation / Consciousness: awake, oriented to person, oriented to place and oriented to time HEENT normocephalic and moist oral mucous membranes Eyes PERRL, EOMs intact bilaterally and conjunctivae normal Neck no lymphadenopathy Resp normal respiratory effort and clear to auscultation bilaterally Cardio regular rate, regular rhythm and no murmurs Peripheral Pulses: pulses 2+ throughout GI normal to inspection, nondistended, normoactive bowel sounds, non-tender and non-distended, dressing over laparoscopic site Palpation: tender other (Postoperative) Extremity normal to inspection Skin no rashes or lesions noted Lesions: no lesions Rashes: no rashes Trauma: no lacerations or abrasions Neuro CN's II-XII intact bilaterally, no focal motor deficits, no sensory deficits noted and deep tendon reflexes 2+ bilaterally Psych mental status grossly normal and affect normal Patient is to have ERCP tomorrow. She had laparoscopic cholecystectomy with cholangiogram showing normal retrograde filling into the right and left hepatic ducts but with obstruction for anterograde filling into the duodenum. She is to have ERCP tomorrow. On haldol and trazodone for schizophrenia. On IV ciprofloxacin and metronidazole. IV dilaudid prn. Continue gentle hydration with IVF. On heparin for DVT prophylaxis. Rest as per Magaly Melara [employer]-c's note, which I have reviewed and endorsed. Visit Charges Inpatient E&M: 39199 Subs Hosp L2
[2021-07-09] MEDS: Pantoprazole Sodium 20 MG Tablet PO (14:52)
--- NOTE | 2021-07-09 15:00 | NURSING ---
Pt assisted to bathroom per request for need to void with assistance of MEDICATION AID. Pt c/o feeling dizzy while on toilet. Pt then voices, I feel like I'm going to have a seizure! Pt closes eyes, needs much encouragement to continue talking, does stay alert and report a history of seizures stating her last on 04/18/21. ems director called for assistance. Pt then closes eyes and will not make verbal responses for a brief period. Pt becomes responsive after seconds, assisted to bed x4 staff members. LACEMAKER called-MD at bedside. Pt awake, reports feelings of verbal hallucinations. MD resumed home psych meds to begin now. Will continues to monitor. Bed alarm on, seizure pads in place.
[2021-07-09 15:25] LABS: Bedside Glucose 98 mg/dL (70-110)
--- NOTE | 2021-07-09 15:25 | CASEMGMT ---
Social Work Note Rapid Response was called on pt. Pt has guest present in room. SW in to pt's room. Pt's guest present is Daphne who states she is basically pt's adopted mother, and more supportive than pt's own mother. SW offered support to Daphne. Daphne updated this worker that pt has history of Schizophrenia. Pt stated during CHARGE LPN, that she was hearing voices. SW left room, RN and Physician still in room. SW will attempt to meet with pt tomorrow as time allows regarding pt's MH. Esther Hanley JUNIOR DESIGNER, WELDER
[2021-07-09] MEDS: Folic Acid 1 MG Tablet PO (15:27)
--- NOTE | 2021-07-09 15:58 | PCM.PN.BLA ---
Progress Note Patient was seen and examined during afternoon rounds. On my way to visit the patient, a rapid response was called. On arriving to the room I was notified that the rapid was called for preemptive measures as Ms. Houston reported possibly beginning a new seizure. Dr. Dawson and several members of the nursing team stated they suspected the presentation was directly related to patient's antipsychotic medications not yet been started in the postoperative period. During my evaluation Ms. Houston this was AO x3. Vitals were within normal limits on the monitor. She expressed symptomatic relief following her operation earlier today. Her abdominal exam was benign and consistent with the postoperative course. There is mild spotting on several of the OpSite bandages. We reviewed the operative findings and current treatment plan to include a liquid diet until midnight and then n.p.o. in anticipation of tomorrow's ERCP procedure. Hospitalist service plans to resume all of the patient's psychiatric meds at this time.
[2021-07-09] MEDS: Haloperidol 5 MG Tablet PO (17:29)
[2021-07-09] MEDS: traZODone 100 MG Tablet PO (17:29)
[2021-07-09] MEDS: Morphine 2 MG/ML Syringe IV ×2 (17:39→20:41)
[2021-07-10] VITALS (13 sets, daily range): BP systolic 118–148; BP diastolic 72–93; PULSE 82–105; RESP 16–20; TEMP 36.7–37.3; O2SAT 90–100
[2021-07-10] MEDS: Lactated Ringers 1,000 ML 100 ML IV ×2 (00:38→08:40)
[2021-07-10] MEDS: Morphine 2 MG/ML Syringe IV (04:12)
[2021-07-10] MEDS: metroNIDAZOLE 500 MG/100 ML BAG 100 MG IV ×2 (05:40→14:06)
[2021-07-10 07:22] LABS: Absolute Lymphocyte Count 1.01 X10^3/uL (0.83-4.51); Absolute Neutrophil Count 6.9 X10^3/uL (2.0-7.7); Basophil# 0.02 X10^3/uL; Basophil% 0.2 % (0-1); Eosinophil# 0.05 X10^3/uL; Eosinophils% 0.6 % (0-5); Hematocrit 38.7 % (37-47); Hemoglobin 12.6 g/dL (12.0-15.0); Lymphocyte # 1.01 X10^3/ul (0.83-4.51); Lymphocyte % 11.4 % (19-41); Mean Corp Hgb Conc 32.6 g/dL (32-36); Mean Corpuscular Hgb 29.4 pg (27.0-32.0); Mean Corpuscular Volume 90.2 fL (81-99); Mean Platelet Vol. 12.3 fl (6.2-12.0); Monocyte# 0.89 X10^3/uL; NRBC Flagged by Analyzer 0 % (0-5); Neutrophil # 6.88 X10^3/uL (2.7-7.7); Neutrophil % 77.5 % (47-70); POSITIVE COUNT YES; Platelet Count 91 K/mm3 (150-450); RBC Distribution Width CV 12.9 % (11.6-14.6); RBC Distribution Width SD 42.6 fl (35.1-43.9); Red Blood Count 4.29 M/mm3 (4.2-5.4); White Blood Count 8.9 K/mm3 (4.4-11.0)
[2021-07-10 07:25] LABS: Differential Indicated SCAN CRITERIA MET
--- NOTE | 2021-07-10 07:30 | RAD_ITS ---
PROCEDURE: FLUOROSCOPIC GUIDANCE FOR ERCP DATE OF EXAMINATION: 07/10/2021 INDICATION: Female, 31 years old. Guidance for ERCP 204.6 seconds of fluoroscopy time. 2 saved images. TECHNIQUE: Fluoroscopy was provided for ERCP procedure. Several digital spot images were obtained. Initial images demonstrate introduction of a guidewire into the common bile duct in a retrograde fashion with subsequent injection of contrast. Contrast is seen to opacify the common bile duct, as well as the intrahepatic biliary radicals. Apparent calcification (versus localized contrast) of the lower common duct on image 1. Second image demonstrates apparent common duct stent. 1. RAD/ERCP Biliary Only IMPRESSION: Limited diagnostic information from 2 images. Possible lower common duct calculus versus overlying contrast. 2. Apparent common duct stent insertion. 3. Please see procedural report. Electronically Signed: Dhruv Dumas MD ([place]) at 16:08 EDT , Service support ,
[2021-07-10 07:35] LABS: ALB/GLOB Ratio 0.8 RATIO (0.9-2.4); AST(SGOT) 66 U/L (15-37); Alanine Aminotransfer ALT/SGPT 146 U/L (13-56); Albumin, Serum 2.9 g/dL (3.2-5.0); Alkaline Phosphatase 181 U/L (45-117); Anion Gap 6 (5-15); BUN 6 mg/dL (7-18); Chloride 106 mmol/L (98-107); Creatinine, Serum 0.99 mg/dL (0.55-1.02); EST Glomerular Filtration Rate 68 mL/min (>60); Est Glom Filt Rate - Afr Amer 83 mL/min (>60); Estimated Creatinine Clearance 69.79 ml/min; Globulin 3.7 g/dL (2.2-4.2); Glucose 119 mg/dL (74-106); Phosphorus 2.6 mg/dL (2.5-4.9); Potassium 3.7 mmol/L (3.5-5.1); Protein, Total 6.6 g/dL (6.4-8.2); Sodium Level 137 mmol/L (136-145)
--- NOTE | 2021-07-10 07:35 | PCM.PN.SRG ---
Subjective Subjective Patient complaining of right upper quadrant pain Objective Data Objective Data Vital Signs: Vital Signs Temp Pulse Resp BP Pulse Ox 98.8 F 82 18 129/75 H 97 07/10/21 04:08 07/10/21 04:08 07/10/21 04:08 07/10/21 04:08 07/10/21 04:08 Oxygen Flow Rate (L/min) 2 Oxygen Delivery Method Nasal Cannula Weight: 301 lb 9.478 oz Body Mass Index (BMI) 51.7 Intake & Output: Intake and Output for Last 24 Hours 07/08/21 07/09/21 07/10/21 23:59 23:59 23:59 Intake Total 1000 / 1000 4128.34 / 4328.34 876.67 / 876.67 Output Total 100 / 600 1500 / 1500 Balance 1000 / 1000 4028.34 / 3728.34 -623.33 / -623.33 Medical Nutrition Assessment Dietitian: Nutrition Therapy Diagnosis Start: 07/09/21 17:09 Freq: Status: Active Protocol: Document 07/09/21 17:20 SLA (Rec: 07/09/21 17:20 SLA [id number]) Nutrition Malnutrition Evidence of Malnutrition Exists No Intake Problem Inadequate Oral Intake Etiology related to surgery Signs/Symptoms as evidence by clear liquid diet Status Active Problem Recommendation Dietitian Recommendations/Changes As medically able, rec diet as tolerated to Regular No Added Salt Lab / Micro Data Result Diagrams: 07/10/21 06:26 07/08/21 18:45 Labs: Laboratory Results - last 24 hr 07/09/21 15:13: POC Glucose 98 07/10/21 06:26: WBC 8.9, RBC 4.29, Hgb 12.6, Hct 38.7, MCV 90.2, MCH 29.4, MCHC 32.6, RDW Std Deviation 42.6, RDW Coeff of Joao 12.9, Plt Count 91 L, MPV 12.3 H, Immature Gran % (Auto) 0.300, Neut % (Auto) 77.5 H, Lymph % (Auto) 11.4 L, Prentiss % (Auto) 10.0, Eos % (Auto) 0.6, Baso % (Auto) 0.2, Absolute Neuts (auto) 6.9, Absolute Lymphs (auto) 1.01, Nucleated RBC % 0 Radiography Diagnostic Testing: Radiology Impression Cholangiogram 07/09/21 09:00 IMPRESSION: Dilated intra and extrahepatic bile ducts with evidence of a calculus in the distal portion of the common bile duct. Electronically Signed: Isreal Fontaine MD at 10:39 EDT , Service support , Physical Exam Const no apparent distress Resp normal respiratory effort Cardio regular rate and regular rhythm GI soft to palpation Palpation: tender RUQ Assessment & Plan Assessment/Plan (1) Choledocholithiasis: PLAN: Patient had laparoscopic cholecystectomy yesterday and was found to have choledocholithiasis. I discussed ERCP with the patient and her mother. I discussed the risks of the procedure including but not limited to bleeding, infection, perforation of the bile duct or bowel, pancreatitis. Patient understands all the risks as does her mother and they both agree to proceed with ERCP with possible stent placement. Abrahan Mckeon MD Pager: [facility] [address] [place] [address] [place] [address] Office:
--- NOTE | 2021-07-10 08:12 | DS.PCM_ITS ---
Providers Date of Admission: 07/09/21 Primary Care Physician: Dr. Gayatri Grubbs MD Consultations 07/09/21 02:29 Consult: General Surgery Routine Consulting Provider: Jani Brown Reason for Consult: Acute cholecystitis with cholelithiasis EMERGENT Consult: No MD Notified: Yes Date Notified: 07/09/21 Time Notified: 00:23 Method of Notification: Verbal Comments:: Notified by ER physician, Dr. Hannah Reason For Visit: ACUTE CHOLECYSTITIS Diagnosis Discharge Diagnosis (1) Choledocholithiasis: Status: Acute Code(s): K80.50 - Calculus of bile duct without cholangitis or cholecystitis without obstruction (2) Acute cholecystitis: Status: Acute Code(s): K81.0 - Acute cholecystitis Medications at Discharge Home Medications omeprazole 20 mg PO DAILY 03/10/18 haloperidol 5 mg PO QHS 06/15/19 albuterol sulfate 90 mcg/actuation aerosol inhaler 2 puff INHALATION Q6H PRN 11/25/20 folic acid 1 mcg PO DAILY 06/06/21 Cortisporin-TC 4 drp LEFT EAR TID 7 Days #10 ml 06/07/21 trazodone 100 mg PO QHS 07/08/21 haloperidol decanoate 50 mg IM QMONTH 07/09/21 ibuprofen 400 mg PO Q4H PRN PRN #0 tab 07/10/21 oxycodone 5 - 10 mg PO Q6H PRN 5 Days #20 tab 07/10/21 Hospital Course Operations cholecystecomy and ERCP Procedures None Summary of Care Provided Hospital Course: Patient was admitted with abdominal pain and found to have elevated LFTs and thickening of the gallbladder wall. She was taken for laparoscopic cholecystectomy and on cholangiogram she was found to have choledocholithiasis. ERCP was performed the following morning and stone was unable to be removed so a stent was placed. There was good flow of bile through the stent. Patient will be discharged home once tolerating a diet and follow-up with Dr. Mckeon for stent removal. Medical Records Data Medical Nutrition Assessment Dietitian: Nutrition Therapy Diagnosis Start: 07/09/21 17:09 Freq: Status: Active Protocol: Document 07/09/21 17:20 KRISHNA (Rec: 07/09/21 17:20 [facility] [id number]) Nutrition Malnutrition Evidence of Malnutrition Exists No Intake Problem Inadequate Oral Intake Etiology related to surgery Signs/Symptoms as evidence by clear liquid diet Status Active Problem Recommendation Dietitian Recommendations/Changes As medically able, rec diet as tolerated to Regular No Added Salt Weight / BMI Weight Weight: 301 lb 9.478 oz Body Mass Index (BMI) 51.7 ABG / Lab / Microbiology Data Result Diagrams: 07/10/21 06:26 07/10/21 06:26 Laboratory: Laboratory Results - last 24 hr 07/09/21 15:13: POC Glucose 98 07/10/21 06:26: WBC 8.9, RBC 4.29, Hgb 12.6, Hct 38.7, MCV 90.2, MCH 29.4, MCHC 32.6, RDW Std Deviation 42.6, RDW Coeff of Joao 12.9, Plt Count 91 L, MPV 12.3 H, Immature Gran % (Auto) 0.300, Neut % (Auto) 77.5 H, Lymph % (Auto) 11.4 L, Greene % (Auto) 10.0, Eos % (Auto) 0.6, Baso % (Auto) 0.2, Absolute Neuts (auto) 6.9, Absolute Lymphs (auto) 1.01, Nucleated RBC % 0 07/10/21 06:26: Sodium 137, Potassium 3.7, Chloride 106, Carbon Dioxide 25.0, Anion Gap 6, BUN 6 L, Creatinine 0.99, Estim Creat Clear Calc 69.79, Est GFR (MDRD) Af Amer 83, Est GFR (MDRD) Non-Af 68, BUN/Creatinine Ratio 6.0 L, Glucose 119 H, Calcium 8.0 L, Phosphorus 2.6, Total Bilirubin 1.80 H, AST 66 H, ALT 146 H, Alkaline Phosphatase 181 H, Total Protein 6.6, Albumin 2.9 L, Globulin 3.7, Albumin/Globulin Ratio 0.8 L Radiography Diagnostic Testing: Radiology Impression Cholangiogram 07/09/21 09:00 IMPRESSION: Dilated intra and extrahepatic bile ducts with evidence of a calculus in the distal portion of the common bile duct. Electronically Signed: Isreal Fontaine MD at 10:39 EDT , Service support , D/C Instructions Discharge Diet: Light diet - advance as tolerated Discharge Activity: May Not Drive (for 2-3 days or while taking narcotic pain medications.), May Shower and - (Do not drive, work heavy equipment or sign legal documents for 24 hours.) Lifting Restrictions: 20 lbs for 2 weeks Additional Activity Instructions: Pain medication may cause nausea. You should typically eat light foods as you take your pain medications. Pain medication may also cause constipation. If this is a problem for you, please discuss with your doctor. Call your doctor if your incision/area has: Continuous Slow Oozing, Sudden Increased Bleeding, Increased Pain/ Swelling, Increased Redness and Foul Smelling Discharge Call your doctor if you observe: Fever of 101 or Higher Suture Line Care: Avoid Pulling/Pushing and Avoid Pinching/Bending Additional Dressing/Incision Instructions: Leave operative bandaids on for 2 d ays. When you remove dressing, leave Steri-Strips on until your follow-up appointment, or until the Steri-Strips fall off on their own. Please Follow Up With: Abrahan Mckeon MD When: Please call to schedule 2 week follow up appointment. [phone] Meaningful Use Info Meaningful Use Diagnoses (Choose all that apply): None applicable Discharge Plan Admission Admit Date/Time: 07/09/21 01:13 Attending Provider: Yue Dawson Primary Care Provider: Gayatri Grubbs Consulting Providers: Jani Brown Discharge Orders/Prescriptions Prescriptions: New ibuprofen 400 mg Tablet 400 mg PO Q4H PRN PRN (Reason: Pain 1-10 Or Fever) Qty: 0 RF: 0 oxycodone 5 mg tablet 5 - 10 mg PO Q6H PRN (Reason: pain) 5 Days Qty: 20 RF: 0 Continued albuterol sulfate [Ventolin HFA] 90 mcg/actuation HFA aerosol inhaler 2 puff INHALATION Q6H PRN (Reason: Shortness Of Breath) RF: 0 omeprazole 20 MG capsule 20 mg PO DAILY RF: 0 haloperidol 5 tablet 5 mg PO QHS RF: 0 folic acid 1 mg tablet 1 mcg PO DAILY RF: 0 Cortisporin-TC 3.3-3-10-0.5 mg/mL drops,suspension 4 drp LEFT EAR TID 7 Days Qty: 10 RF: 0 trazodone 100 mg tablet 100 mg PO QHS RF: 0 haloperidol decanoate 50 mg/mL solution 50 mg IM QMONTH RF: 0 Referrals / Follow Up: Gayatri Grubbs MD [Primary Care Provider] - Disposition Disposition (needs filled in before D/C Order can be placed): Home, Self Care
[2021-07-10 08:16] LABS: Platelet Estimate SLT DEC (ADEQ)
[2021-07-10 08:26] LABS: Partial Thromboplast Time 31.3 Seconds (24.1-36.2)
[2021-07-10] MEDS: Ipratropium/Albuterol Sulfate 3 ML AMPUL.NEB INHALATION (09:01)
--- NOTE | 2021-07-10 09:23 | NURSING ---
PT OFF UNIT
[2021-07-10] MEDS: Folic Acid 1 MG Tablet PO (09:55)
[2021-07-10] MEDS: Pantoprazole Sodium 20 MG Tablet PO (09:55)
[2021-07-10] MEDS: HYDROmorphone 0.5 MG/0.5 ML SYRINGE IV (09:56)
[2021-07-10] MEDS: 0.9% Saline Lock 10 ML Syringe IV (09:56)
[2021-07-10] MEDS: Ciprofloxacin 400 MG/200 ML BAG 200 MG IV (09:56)
--- NOTE | 2021-07-10 12:56 | PCM.DC ---
Discharge Instructions Diet Discharge Diet: Light diet - advance as tolerated Activity Additional Activity Instructions:: Pain medication may cause nausea. You should typically eat light foods as you take your pain medications. Pain medication may also cause constipation. If this is a problem for you, please discuss with your doctor. Dressing / Incision Call your doctor if your incision/area has: Continuous Slow Oozing, Sudden Increased Bleeding, Increased Pain/ Swelling, Increased Redness and Foul Smelling Discharge Call your doctor if you observe: Fever of 101 or Higher Suture Line Care: Avoid Pulling/Pushing and Avoid Pinching/Bending Additional Dressing/Incision Instructions:: Leave operative bandaids on for 2 days. When you remove dressing, leave Steri-Strips on until your follow-up appointment, or until the Steri-Strips fall off on their own. Follow Up Care Please Follow Up With: Abrahan Mckeon MD Test Results: Test results from this visit will be discussed in further detail at your follow-up appointment, if applicable. Discharge Plan Admission Admit Date/Time: 07/09/21 01:13 Primary Reason for Your Visit: Choledocholithiasis Attending Provider: Yue Dawson Primary Care Provider: Gayatri Grubbs Consulting Providers: Jani Brown Instructions Additional Instructions / Restrictions: Patient Problems: Altered Health Status related to Hospitalization Patient Goals: *Optimal Level of Health *Keep Appointments *Medication Compliance *Remain Safe Discharge Orders/Prescriptions Prescriptions: New ibuprofen 400 mg Tablet 400 mg PO Q4H PRN PRN (Reason: Pain 1-10 Or Fever) Qty: 0 RF: 0 oxycodone 5 mg tablet 5 - 10 mg PO Q6H PRN (Reason: pain) 5 Days Qty: 20 RF: 0 Continued albuterol sulfate [Ventolin HFA] 90 mcg/actuation HFA aerosol inhaler 2 puff INHALATION Q6H PRN (Reason: Shortness Of Breath) RF: 0 omeprazole 20 MG capsule 20 mg PO DAILY RF: 0 haloperidol 5 tablet 5 mg PO QHS RF: 0 folic acid 1 mg tablet 1 mcg PO DAILY RF: 0 Cortisporin-TC 3.3-3-10-0.5 mg/mL drops,suspension 4 drp LEFT EAR TID 7 Days Qty: 10 RF: 0 trazodone 100 mg tablet 100 mg PO QHS RF: 0 haloperidol decanoate 50 mg/mL solution 50 mg IM QMONTH RF: 0 Referrals / Follow Up: Abrahan Mckeon MD [STAFF PHYSICIAN] - Within 2 Weeks Gayatri Grubbs MD [Primary Care Provider] - In 1 Week Disposition Disposition (needs filled in before D/C Order can be placed): Home, Self Care
--- NOTE | 2021-07-10 13:03 | PCM.DC.SUM ---
Documented by User: Magaly Melara NP, MANUAL ARTS THERAPIST-C 07/10/21 13:08 Providers Date of Admission: 07/09/21 Date of Discharge: 07/10/21 Primary Care Physician: Dr. Gayatri Grubbs MD Consultations 07/09/21 02:29 Consult: General Surgery Routine Consulting Provider: Jani Brown Reason for Consult: Acute cholecystitis with cholelithiasis EMERGENT Consult: No MD Notified: Yes Date Notified: 07/09/21 Time Notified: 00:23 Method of Notification: Verbal Comments:: Notified by ER physician, Dr. Hannah Reason For Visit: ACUTE CHOLECYSTITIS Diagnosis Discharge Diagnosis (1) Choledocholithiasis: Status: Acute Code(s): K80.50 - Calculus of bile duct without cholangitis or cholecystitis without obstruction (2) Acute cholecystitis: Status: Acute Code(s): K81.0 - Acute cholecystitis Medications at Discharge Home Medications omeprazole 20 mg PO DAILY 03/10/18 haloperidol 5 mg PO QHS 06/15/19 albuterol sulfate 90 mcg/actuation aerosol inhaler 2 puff INHALATION Q6H PRN 11/25/20 folic acid 1 mcg PO DAILY 06/06/21 Cortisporin-TC 4 drp LEFT EAR TID 7 Days #10 ml 06/07/21 trazodone 100 mg PO QHS 07/08/21 haloperidol decanoate 50 mg IM QMONTH 07/09/21 ibuprofen 400 mg PO Q4H PRN PRN #0 tab 07/10/21 oxycodone 5 - 10 mg PO Q6H PRN 5 Days #20 tab 07/10/21 Hospital Course Operations cholecystecomy and ERCP Procedures None Summary of Care Provided Minutes Spent on Discharge: 35 Hospital Course: Patient is a 31-year-old female admitted 07/09/2021 due to abdominal pain, nausea and vomiting. 1. Acute cholecystitis with choledocholithiasis-status post cholecystectomy with cholangiography 07/09/2021. Further underwent ERCP with stent placement. Follow-up with Dr. Mckeon in two weeks. Further antibiotics discontinued. As needed pain regimen. Tolerating diet at discharge. Follow-up with PCP in 1 week. 2. History of schizophrenia/bipolar 1 disorder/PTSD-continue home medication regimen. 3. Chronic epilepsy-not on antiepileptic regimen. 4. Chronic kidney disease stage IIIa-at baseline. 5. History of alcohol use/substance use-denies recent use. 6. Hypertension-stable, not on regimen. 7. GERD-continue PPI. Physical Exam Const alert, oriented x3 and no apparent distress Orientation / Consciousness: awake, oriented to person, oriented to place and oriented to time HEENT normocephalic and moist oral mucous membranes Eyes PERRL, EOMs intact bilaterally and conjunctivae normal Neck no lymphadenopathy Resp normal respiratory effort and clear to auscultation bilaterally Cardio regular rate, regular rhythm and no murmurs Peripheral Pulses: pulses 2+ throughout GI normal to inspection, nondistended, normoactive bowel sounds, non-tender and non-distended Palpation: tender other (Postoperative) Extremity normal to inspection Skin no rashes or lesions noted Lesions: no lesions Rashes: no rashes Trauma: no lacerations or abrasions Neuro CN's II-XII intact bilaterally, no focal motor deficits, no sensory deficits noted and deep tendon reflexes 2+ bilaterally Psych mental status grossly normal and affect normal Patient seen and examined prior to discharge. Physical assessment as noted above. Patient is stable for discharge with follow up recommendations as noted above. This patient was seen by NORMA Steiner under the supervision of Dr. Dawson. Medical Records Data Medical Nutrition Assessment Dietitian: Nutrition Therapy Diagnosis Start: 07/09/21 17:09 Freq: Status: Active Protocol: Document 07/09/21 17:20 [facility] (Rec: 07/09/21 17:20 [facility] [id number]) Nutrition Malnutrition Evidence of Malnutrition Exists No Intake Problem Inadequate Oral Intake Etiology related to surgery Signs/Symptoms as evidence by clear liquid diet Status Active Problem Recommendation Dietitian Recommendations/Changes As medically able, rec diet as tolerated to Regular No Added Salt Weight / BMI Weight Weight: 301 lb 9.478 oz Body Mass Index (BMI) 51.7 ABG / Lab / Microbiology Data Result Diagrams: 07/10/21 06:26 07/10/21 06:26 Laboratory: Laboratory Results - last 24 hr 07/09/21 15:13: POC Glucose 98 07/10/21 06:26: WBC 8.9, RBC 4.29, Hgb 12.6, Hct 38.7, MCV 90.2, MCH 29.4, MCHC 32.6, RDW Std Deviation 42.6, RDW Coeff of Joao 12.9, Plt Count 91 L, MPV 12.3 H, Immature Gran % (Auto) 0.300, Neut % (Auto) 77.5 H, Lymph % (Auto) 11.4 L, Laporte % (Auto) 10.0, Eos % (Auto) 0.6, Baso % (Auto) 0.2, Absolute Neuts (auto) 6.9, Absolute Lymphs (auto) 1.01, Nucleated RBC % 0, Platelet Estimate SLT 07/10/21 06:26: Sodium 137, Potassium 3.7, Chloride 106, Carbon Dioxide 25.0, Anion Gap 6, BUN 6 L, Creatinine 0.99, Estim Creat Clear Calc 69.79, Est GFR (MDRD) Af Amer 83, Est GFR (MDRD) Non-Af 68, BUN/Creatinine Ratio 6.0 L, Glucose 119 H, Calcium 8.0 L, Phosphorus 2.6, Total Bilirubin 1.80 H, AST 66 H, ALT 146 H, Alkaline Phosphatase 181 H, Total Protein 6.6, Albumin 2.9 L, Globulin 3.7, Albumin/Globulin Ratio 0.8 L 07/10/21 06:26: APTT 31.3 D/C Instructions Discharge Diet: Light diet - advance as tolerated Additional Activity Instructions: Pain medication may cause nausea. You should typically eat light foods as you take your pain medications. Pain medication may also cause constipation. If this is a problem for you, please discuss with your doctor. Call your doctor if your incision/area has: Continuous Slow Oozing, Sudden Increased Bleeding, Increased Pain/ Swelling, Increased Redness and Foul Smelling Discharge Call your doctor if you observe: Fever of 101 or Higher Suture Line Care: Avoid Pulling/Pushing and Avoid Pinching/Bending Additional Dressing/Incision Instructions: Leave operative bandaids on for 2 days. When you remove dressing, leave Steri-Strips on until your follow-up appointment, or until the Steri-Strips fall off on their own. Please Follow Up With: Abrahan Mckeon MD When: Please call to schedule 2 week follow up appointment. [phone] Meaningful Use Info Meaningful Use Diagnoses (Choose all that apply): None applicable Discharge Plan Admission Admit Date/Time: 07/09/21 01:13 Primary Reason for Your Visit: Choledocholithiasis Attending Provider: Yue Dawson Primary Care Provider: Gayatri Grubbs Consulting Providers: Jani Brown Instructions Additional Instructions / Restrictions: Patient Problems: Altered Health Status related to Hospitalization Patient Goals: *Optimal Level of Health *Keep Appointments *Medication Compliance *Remain Safe Discharge Orders/Prescriptions Prescriptions: New ibuprofen 400 mg Tablet 400 mg PO Q4H PRN PRN (Reason: Pain 1-10 Or Fever) Qty: 0 RF: 0 oxycodone 5 mg tablet 5 - 10 mg PO Q6H PRN (Reason: pain) 5 Days Qty: 20 RF: 0 Continued albuterol sulfate [Ventolin HFA] 90 mcg/actuation HFA aerosol inhaler 2 puff INHALATION Q6H PRN (Reason: Shortness Of Breath) RF: 0 omeprazole 20 MG capsule 20 mg PO DAILY RF: 0 haloperidol 5 tablet 5 mg PO QHS RF: 0 folic acid 1 mg tablet 1 mcg PO DAILY RF: 0 Cortisporin-TC 3.3-3-10-0.5 mg/mL drops,suspension 4 drp LEFT EAR TID 7 Days Qty: 10 RF: 0 trazodone 100 mg tablet 100 mg PO QHS RF: 0 haloperidol decanoate 50 mg/mL solution 50 mg IM QMONTH RF: 0 Referrals / Follow Up: Abrahan Mckeon MD [STAFF PHYSICIAN] - Within 2 Weeks Gayatri Grubbs MD [Primary Care Provider] - In 1 Week Disposition Disposition (needs filled in before D/C Order can be placed): Home, Self Care Documented by User: Dr. Yue Dawson MD 07/10/21 16:55 Providers Date of Admission: 07/09/21 Reason For Visit: ACUTE CHOLECYSTITIS Medications at Discharge Home Medications omeprazole 20 mg PO DAILY 03/10/18 haloperidol 5 mg PO QHS 06/15/19 albuterol sulfate 90 mcg/actuation aerosol inhaler 2 puff INHALATION Q6H PRN 11/25/20 folic acid 1 mcg PO DAILY 06/06/21 Cortisporin-TC 4 drp LEFT EAR TID 7 Days #10 ml 06/07/21 trazodone 100 mg PO QHS 07/08/21 haloperidol decanoate 50 mg IM QMONTH 07/09/21 ibuprofen 400 mg PO Q4H PRN PRN #0 tab 07/10/21 oxycodone 5 - 10 mg PO Q6H PRN 5 Days #20 tab 07/10/21 ABG / Lab / Microbiology Data Result Diagrams: 07/10/21 06:26 07/10/21 06:26 Discharge Plan Admission Admit Date/Time: 07/09/21 01:13 Primary Reason for Your Visit: Choledocholithiasis Attending Provider: Yue Dawson Primary Care Provider: Gayatri Grubbs Consulting Providers: Jani Brown Instructions Additional Instructions / Restrictions: Patient Problems: Altered Health Status related to Hospitalization Patient Goals: *Optimal Level of Health *Keep Appointments *Medication Compliance *Remain Safe Discharge Orders/Prescriptions Prescriptions: New ibuprofen 400 mg Tablet 400 mg PO Q4H PRN PRN (Reason: Pain 1-10 Or Fever) Qty: 0 RF: 0 oxycodone 5 mg tablet 5 - 10 mg PO Q6H PRN (Reason: pain) 5 Days Qty: 20 RF: 0 Continued albuterol sulfate [Ventolin HFA] 90 mcg/actuation HFA aerosol inhaler 2 puff INHALATION Q6H PRN (Reason: Shortness Of Breath) RF: 0 omeprazole 20 MG capsule 20 mg PO DAILY RF: 0 haloperidol 5 tablet 5 mg PO QHS RF: 0 folic acid 1 mg tablet 1 mcg PO DAILY RF: 0 Cortisporin-TC 3.3-3-10-0.5 mg/mL drops,suspension 4 drp LEFT EAR TID 7 Days Qty: 10 RF: 0 trazodone 100 mg tablet 100 mg PO QHS RF: 0 haloperidol decanoate 50 mg/mL solution 50 mg IM QMONTH RF: 0 Referrals / Follow Up: Abrahan Mckeon MD [STAFF PHYSICIAN] - Within 2 Weeks Gayatri Grubbs MD [Primary Care Provider] - In 1 Week Disposition Disposition (needs filled in before D/C Order can be placed): Home, Self Care Charges/Coding Addendum Addendum: Patient seen by Magaly Romero under my supervision Patient is a 31-year-old female with an extensive past medical history as outlined which includes schizophrenia and bipolar 1 who came into the ED with right upper quadrant pain, nausea and vomiting for 2 days prior to admission. Pain was colicky and radiated to her right shoulder and was assisted with vomiting and nausea. She denied any fever or chills. CT of the abdomen done showed questionable tiny gallbladder polyps or noncalcified stones and gallbladder ultrasound showed cholelithiasis with positive Torrez sign which was consistent with acute cholecystitis.. Liver enzymes were also elevated. She was admitted to be managed for acute cholecystitis with cholelithiasis. She was kept n.p.o. and hydrated with IV fluids and given IV pain medication. She was put on IV ciprofloxacin. General surgery was consulted. Patient had laparoscopic cholecystectomy on 07/09/2021, with cholangiogram done showing suspicion for obstruction of anterograde filling into the duodenum.. She had an ERCP done on account of choledocholithiasis but stone was unable to be removed so she had a stent placed, with good flow of bile through the stent. Patient remained stable and was discharged home after tolerating a diet on 07/10/2021. Patient was seen and examined prior to discharge. She had just come back from ERCP and pain was well controlled. Review of systems otherwise negative. Labs and vitals reviewed. Home medication reviewed and reconciled. O/E: Const alert, oriented x3 and no apparent distress, morbidly obese Orientation / Consciousness: awake, oriented to person, oriented to place and oriented to time HEENT normocephalic and moist oral mucous membranes Eyes PERRL, EOMs intact bilaterally and conjunctivae normal Neck no lymphadenopathy Resp normal respiratory effort and clear to auscultation bilaterally Cardio regular rate, regular rhythm and no murmurs Peripheral Pulses: pulses 2+ throughout GI normal to inspection, nondistended, normoactive bowel sounds, non-tender and non-distended, dressing over laparoscopic site Extremity normal to inspection Skin no rashes or lesions noted Lesions: no lesions Rashes: no rashes Trauma: no lacerations or abrasions Neuro CN's II-XII intact bilaterally, no focal motor deficits, no sensory deficits noted and deep tendon reflexes 2+ bilaterally Psych mental status grossly normal and affect normal Plan is for discharge home today as above. Rest as per Magaly Kelton MANUAL ARTS THERAPIST-c's note, which I have reviewed and endorsed. Visit Charges Inpatient E&M: 96752 Disch Hosp
[2021-07-10] MEDS: Ibuprofen 400 MG Tablet PO (14:08)
--- NOTE | 2021-07-10 18:41 | CASEMGMT ---
JANA Note Referral Source: Med Surg SW Referral Reason: RN HOSPICE on 07/09/21 SW met with patient in her room. Patient was getting up in his recliner and she stated she dropped her phone and group social worker went and picked the phone up. Patient said that she is going to walk as they said it's good for the gas. SW assisted patient with putting a second gown on and patient began to walk. SW spoke to staff who indicated that patient need assistance with walking. Patient lives at a retirement. Her MH caseworker protective services is Darwin. Patient denied any SI/HI. Patient voiced she feels comfortable going home and has no discharge concerns. Patient said that if was fine for this typewriter assembly and parts inspector to follow up with [facility] staff and advise that patient was at the hospital but being discharged. Patient was able to voice any concerns, engaged in conversation easily but had flat affect and appeared blunted. Patient voiced desire to return home. Plan: Home at discharge. Linnea ISBELL
--- NOTE | 2021-07-10 18:59 | CM.ED ---
JANA Note: JANA spoke to Monica from [facility]. JANA asked that this screen writer update patient's assistant case manager, Darwin, that patient was hospitalized at [facility] but is being discharged today. Monica agreed to update patient's assistant case manager. No further JANA services needed. Plan: Support from [facility] for patient Linnea Pal MSKimber ISBELL
--- NOTE | 2021-07-12 09:55 | OP.CCLET_ITS ---
07/12/2021 Gayatri Grubbs [address] [id number] Re : ERCP procedure for Taz Houston Dear Dr. Grubbs This procedure was performed on Saturday, July 10, 2021. My impressions and recommendations are as follows: Impressions : - Choledocholithiasis was found. Partial removal was accomplished with biliary sphincterotomy; a stent was inserted. - A biliary sphincterotomy was performed. - The biliary tree was swept. - One plastic stent was placed into the common bile duct. Recommendations : - [facility]. - Advance diet as tolerated. - Continue present medications. My findings are described in the full procedure note, which is enclosed. If I can be of further assistance, please feel free to contact me at Doctor phone number(s): , Work: . Sincerely, Abrahan Mckeon MD 07/10/2021 8:28:23 AM This report has been signed electronically.
--- NOTE | 2021-07-12 09:55 | OP.ERCP_ITS ---
Patient Name: Taz Houston Procedure Date: 07/10/2021 7:12 AM Date of : 1990 Age: 31 Procedure: ERCP Indications: Common bile duct stone(s) Providers: Abrahan Mckeon MD Medicines: General Anesthesia Patient Profile: This is a 31 year old female. Refer to note in patient chart for documentation of history and physical. Complications: No immediate complications. Procedure: Pre-Anesthesia Assessment: - Prior to the procedure, a History and Physical was performed, and patient medications and allergies were reviewed. The patient's tolerance of previous anesthesia was also reviewed. The risks and benefits of the procedure and the sedation options and risks were discussed with the patient. All questions were answered, and informed consent was obtained. Prior Anticoagulants: The patient has taken no previous anticoagulant or antiplatelet agents. After reviewing the risks and benefits, the patient was deemed in satisfactory condition to undergo the procedure. After obtaining informed consent, the scope was passed under direct vision. Throughout the procedure, the patient's blood pressure, pulse, and oxygen saturations were monitored continuously. The [id number] endoscope was introduced through the mouth, and advanced to the duodenum and used to inject contrast into the bile duct. The ERCP was accomplished without difficulty. The patient tolerated the procedure well. Scope In: 7:51:15 AM Scope Out: 8:09:05 AM Total Procedure Duration Time 0 hours 17 minutes 50 seconds Findings: A 0.035 inch x 260 cm straight Dreamwire was passed into the biliary tree. The sphincterotome was passed over the guidewire and the bile duct was then deeply cannulated. Contrast was injected. I personally interpreted the bile duct images. There was brisk flow of contrast through the ducts. Image quality was adequate. The lower third of the main bile duct contained one stone mm. Biliary sphincterotomy was made with a monofilament sphincterotome using ERBE electrocautery. There was no post-sphincterotomy bleeding. To discover objects, the biliary tree was swept with a 12 mm balloon starting at the bifurcation. There was one stone which was unable to be removed with balloon. Basket was tried as well and stone was unable to be removed. One stone remained. One 10 Fr by 5 cm plastic stent with a single external flap and a single internal flap was placed into the common bile duct. Bile flowed through the stent. The stent was in good position. The endoscope was withdrawn from the patient. Impression: - Choledocholithiasis was found. Partial removal was accomplished with biliary sphincterotomy; a stent was inserted. - A biliary sphincterotomy was performed. - The biliary tree was swept. - One plastic stent was placed into the common bile duct. Recommendation: - [facility]. - Advance diet as tolerated. - Continue present medications. Procedure Code(s): --- Professional --- 85756, Endoscopic retrograde cholangiopancreatography (ERCP); with placement of endoscopic stent into biliary or pancreatic duct, including pre- and post-dilation and guide wire passage, when performed, including sphincterotomy, when performed, each stent Diagnosis Code(s): --- Professional --- K80.50, Calculus of bile duct without cholangitis or cholecystitis without obstruction CPT copyright 2017 [employer]. All rights reserved. The codes documented in this report are preliminary and upon sulfide head operator review may be revised to meet current compliance requirements. Abrahan Mckeon MD 07/10/2021 8:28:23 AM This report has been signed electronically. Number of Addenda: 0 Note Initiated On: 07/10/2021 7:12 AM
== END 2021-07-10 16:10 | disposition home or self-care (01) | DRG 263 ==
LOC: ED 18:54 → MS3 07-09 01:32
PROVIDERS: Anesthesiology; Nurse Practitioner Family; Surgery; Admitting Provider Internal Medicine; Emergency Provider Student in an Organized Health Care Education/Training Program; PCP Internal Medicine; Visit Provider Student in an Organized Health Care Education/Training Program
PROC: 0FT44ZZ Resection of Gallbladder, Percutaneous Endoscopic Approach (ICD-10-PCS; CPT 47610; principal; 2021-07-09 08:25)
PROC: 0F798ZZ Dilation of Common Bile Duct, Via Natural or Artificial Opening Endoscopic (ICD-10-PCS; CPT 43260; principal; 2021-07-10 07:00)
DX: K80.62 Calculus of gallbladder and bile duct with acute cholecystitis without obstruction (principal); G40.209 Localization-related (focal) (partial) symptomatic epilepsy and epileptic syndromes with complex partial seizures, not intractable, without status epilepticus; K21.9 Gastro-esophageal reflux disease without esophagitis; F31.9 Bipolar disorder, unspecified; F20.9 Schizophrenia, unspecified; F43.10 Post-traumatic stress disorder, unspecified; K58.0 Irritable bowel syndrome with diarrhea; E78.5 Hyperlipidemia, unspecified; I12.9 Hypertensive chronic kidney disease with stage 1 through stage 4 chronic kidney disease, or unspecified chronic kidney disease; N18.31 Chronic kidney disease, stage 3a; E66.01 Morbid (severe) obesity due to excess calories; Z68.43 Body mass index [BMI] 50.0-59.9, adult; F10.20 Alcohol dependence, uncomplicated; F17.210 Nicotine dependence, cigarettes, uncomplicated; Z79.899 Other long term (current) drug therapy; Z82.49 Family history of ischemic heart disease and other diseases of the circulatory system; Z88.0 Allergy status to penicillin; Z86.73 Personal history of transient ischemic attack (TIA), and cerebral infarction without residual deficits; Z85.3 Personal history of malignant neoplasm of breast; Z85.038 Personal history of other malignant neoplasm of large intestine; Z83.3 Family history of diabetes mellitus; Z88.1 Allergy status to other antibiotic agents
CPT/HCPCS: 36415; 74177; 74300; 74328; 76000; 76705; 80053; 81001; 82962; 83690; 83735; 84100; 84703; 85025; 85730; 88304; 93005; 94640; 99251; 99285; J7030; J7050; J7120; Q9967; A4216; G0463; J0744; J2405

== ENCOUNTER 2021-08-05 11:16 | Day surgery (SDC) | payer MEDICAID, SELFPAY ==
[2021-08-05] VITALS (9 sets, daily range): BP systolic 115–143; BP diastolic 79–99; PULSE 88–97; RESP 16–18; TEMP 36.6–37.4; O2SAT 96–100; BMI 51.7
--- NOTE | 2021-08-05 11:24 | PCM.HP.BLA ---
History and Physical Date of Admission: 08/05/21 Intake Intake Visit Reasons: ERCP Chief Complaint: incisional pain Allergies Bleach (Sodium Hypochlorite) Allergy (Mild, Verified 07/27/21 09:25) rash acetaminophen Allergy (Verified 07/27/21 09:25) breaks out in hives and throat swells shut bacitracin Allergy (Verified 07/27/21 09:25) Unknown Latex, Natural Rubber Allergy (Verified 07/27/21 09:25) Rash Penicillins Allergy (Verified 07/27/21 09:25) Unknown Medications omeprazole 20 mg PO DAILY 03/10/18 [History Confirmed 07/27/21] haloperidol 5 mg PO QHS 06/15/19 [History Confirmed 07/27/21] albuterol sulfate 90 mcg/actuation aerosol inhaler 2 puff INHALATION Q6H PRN 11/25/20 [History Confirmed 07/27/21] folic acid 1 mcg PO DAILY 06/06/21 [History Confirmed 07/27/21] Cortisporin-TC 4 drp LEFT EAR TID 7 Days #10 ml 06/07/21 [Rx Confirmed 07/27/21] trazodone 100 mg PO QHS 07/08/21 [History Confirmed 07/27/21] haloperidol decanoate 50 mg IM QMONTH 07/09/21 [History Confirmed 07/27/21] ibuprofen 400 mg PO Q4H PRN PRN #0 tab 07/10/21 [Rx Confirmed 07/27/21] oxycodone 5 - 10 mg PO Q6H PRN 5 Days #20 tab 07/10/21 [Rx Confirmed 07/27/21] Subjective Details: Patient still having some pinching in the right upper quadrant and the pain at her incision in the epigastric region Objective Details: Incisions are clean dry and intact abdomen is soft Coding Level of Care Code Global Post Op Diagnoses Choledocholithiasis K80.50 [facility] Medical History (Updated 07/27/21 @ 09:26 by Holly Dye) Anxiety and depression Arthritis Asthma Bipolar 1 disorder Choledocholithiasis GERD (gastroesophageal reflux disease) History of alcohol abuse History of substance abuse Hypertension Hypocalcemia IBS (irritable bowel syndrome) Memory loss Neuropathy Schizophrenia Seasonal allergies Seizures Suicidal thoughts Surgical History History of breast biopsy History of hernia repair History of removal of cyst S/P ERCP S/P laparoscopic cholecystectomy Family History Aunt Diabetes Father Myocardial infarction, Onset Age: 50 Grandmother Myocardial infarction, Onset Age: 70 Other Alcoholism Anxiety and depression Arthritis Asthma Breast cancer CVA (cerebral vascular accident) Cancer Colon cancer Heart disease Hyperlipemia Hypertension Kidney disease Liver disease Osteoporosis Thyroid disorder Social History Smoking Status: Current every day smoker tobacco type: cigarettes and e-cigarettes Tobacco: How many years used: 22 alcohol intake: current substance use type: marijuana what type of physical activity do you participate in: walking and bicycling Assessment and Plan (No Qualifiers) Assessment and Plan (1) Choledocholithiasis: Status: Acute Comment: Patient status post ERCP with a biliary stent still in place. Patient requires follow-up appointment with Dr. Mckeon (this has been verified with our office) Plan - Dr. Abrahan Mckeon MD: I discussed ERCP with stent removal and stone removal with the patient. I discussed that I would attempt to remove the stone I was unable to remove last time but if I was unable to remove the stone I would insert a fresh stent and send her to a tertiary care center. I did once again reviewed the risks of ERCP such as bleeding, infection, perforation of the bile duct or bowel, pancreatitis. Patient understands the risks and is when to proceed. Abrahan Mckeon MD Pager: [facility] [address] [place] [address], [address] [place] [address] Office: I have seen and reexamined the patient and there are no changes.
[2021-08-05 12:28] LABS: Internal QC Validated? YES +Cl - CLEAR BKGD; Pregnancy, Urine Negative Negative
--- NOTE | 2021-08-05 13:00 | RAD_ITS ---
STUDY: ERCP REASON FOR EXAM: Female, 31 years old. ERCP with stent removal, and stone removal FLUOROSCOPY TIME (if supplied): ( 4 minutes and 25 seconds. ) minutes/seconds. 2 images were submitted. TECHNIQUE: An ERCP was performed by the surgeon. Imaging was provided. COMPARISON: Comparison is made with prior study dated 07/09/2021. FINDINGS: The biliary stent has been removed. No retained calculus is seen at this time. RAD/ERCP Biliary Only IMPRESSION: No retained calculus is seen at the end of the examination. Removal of the biliary stent. Electronically Signed: Isreal Fontaine MD at 15:15 EDT , Service support ,
[2021-08-05] MEDS: Lactated Ringers 1,000 ML 100 ML IV (13:38)
--- NOTE | 2021-08-05 14:22 | OP.ERCP_ITS ---
Patient Name: Taz Houston Procedure Date: 08/05/2021 1:32 PM Date of : 1990 Age: 31 Procedure: ERCP Indications: Common bile duct stone(s) Providers: Abrahan Mckeon MD Medicines: General Anesthesia Patient Profile: This is a 31 year old female. Refer to note in patient chart for documentation of history and physical. Complications: No immediate complications. Estimated blood loss: Minimal. Procedure: Pre-Anesthesia Assessment: - Prior to the procedure, a History and Physical was performed, and patient medications and allergies were reviewed. The patient's tolerance of previous anesthesia was also reviewed. The risks and benefits of the procedure and the sedation options and risks were discussed with the patient. All questions were answered, and informed consent was obtained. Prior Anticoagulants: The patient has taken no previous anticoagulant or antiplatelet agents. After reviewing the risks and benefits, the patient was deemed in satisfactory condition to undergo the procedure. After obtaining informed consent, the scope was passed under direct vision. Throughout the procedure, the patient's blood pressure, pulse, and oxygen saturations were monitored continuously. The duodenoscope was introduced through the mouth, and advanced to the duodenum and used to inject contrast into the bile duct. The ERCP was accomplished without difficulty. The patient tolerated the procedure well. Scope In: 1:53:29 PM Scope Out: 2:11:01 PM Total Procedure Duration Time 0 hours 17 minutes 32 seconds Findings: One stent was removed from the biliary tree using a snare. A 0.035 inch x 260 cm straight Dreamwire was passed into the biliary tree. The biliary tree was swept with a basket starting at the bifurcation. One stone was removed. No stones remained. The biliary tree was swept with a 12 mm balloon starting at the bifurcation. Debris was swept from the duct. The endoscope was withdrawn from the patient. Impression: - Choledocholithiasis was found. Complete removal was accomplished by balloon extraction. - One stent was removed from the biliary tree. - The biliary tree was swept. - The biliary tree was swept and debris was found. Recommendation: - Discharge patient to home. - Resume previous diet. - Continue present medications. - Return to my office PRN. Procedure Code(s): --- Professional --- 96924, Endoscopic retrograde cholangiopancreatography (ERCP); with removal of foreign body(s) or stent(s) from biliary/pancreatic duct(s) 37962, Endoscopic retrograde cholangiopancreatography (ERCP); with removal of calculi/debris from biliary/pancreatic duct(s) Diagnosis Code(s): --- Professional --- K80.50, Calculus of bile duct without cholangitis or cholecystitis without obstruction Z46.59, Encounter for fitting and adjustment of other gastrointestinal appliance and device CPT copyright 2017 [employer]. All rights reserved. The codes documented in this report are preliminary and upon joiner helper review may be revised to meet current compliance requirements. Abrahan Mckeon MD 08/05/2021 2:21:18 PM This report has been signed electronically. Number of Addenda: 0 Note Initiated On: 08/05/2021 1:32 PM
--- NOTE | 2021-08-05 14:23 | OP.CCLET_ITS ---
08/05/2021 Gayatri Grubbs [address] [place] [address] Re : ERCP procedure for Taz Houston Dear Dr. Grubbs This procedure was performed on July. My impressions and recommendations are as follows: Impressions : - Choledocholithiasis was found. Complete removal was accomplished by balloon extraction. - One stent was removed from the biliary tree. - The biliary tree was swept. - The biliary tree was swept and debris was found. Recommendations : - Discharge patient to home. - Resume previous diet. - Continue present medications. - Return to my office PRN. My findings are described in the full procedure note, which is enclosed. If I can be of further assistance, please feel free to contact me at Doctor phone number(s): , Work: . Sincerely, Abrahan Mckeon MD 08/05/2021 2:21:18 PM This report has been signed electronically.
== END 2021-08-05 15:23 | disposition home or self-care (01) ==
LOC: EN 11:17 → AC 11:17
PROVIDERS: Anesthesiology; PCP Internal Medicine; Referring Provider Internal Medicine; Visit Provider Surgery
PROC: (CPT 43260; principal; 2021-08-05 12:30)
DX: K80.50 Calculus of bile duct without cholangitis or cholecystitis without obstruction (principal); E11.40 Type 2 diabetes mellitus with diabetic neuropathy, unspecified; I10 Essential (primary) hypertension; K58.9 Irritable bowel syndrome, unspecified; R56.9 Unspecified convulsions; K21.9 Gastro-esophageal reflux disease without esophagitis; F10.11 Alcohol abuse, in remission; F20.9 Schizophrenia, unspecified; F31.9 Bipolar disorder, unspecified; F41.9 Anxiety disorder, unspecified; F17.210 Nicotine dependence, cigarettes, uncomplicated; Z79.899 Other long term (current) drug therapy
CPT/HCPCS: 43264; 43275; 74328; 76000; 81025; J7120; J2405

== ENCOUNTER 2022-09-20 18:46 | Emergency (ER) | payer MEDICAID, SELFPAY ==
[2022-09-20 18:47] VITALS: BP 130/92; PULSE 93; RESP 14; TEMP 36.6; O2SAT 99; BMI 44.6
--- NOTE | 2022-09-20 20:16 | RAD_ITS ---
EXAM: XR RIGHT FOOT COMPLETE, 3 OR MORE VIEWS CLINICAL INDICATION: foot pain TECHNIQUE: Frontal, lateral and oblique views of the right foot. This report was created using [employer] report generation technology. COMPARISON: None. FINDINGS: BONES/JOINTS: There is a calcaneal spur. No acute fracture. No subluxation. Normal alignment. Preservation of the joint space. No sclerotic or destructive changes observed. SOFT TISSUES: Soft tissue swelling around the ankle and foot. No radiopaque foreign body. RAD/Foot min 3 Views IMPRESSION: Soft tissue swelling around the ankle and foot. Electronically Signed: Pillo Gaming MD at 21:00 EDT ,
[2022-09-20] MEDS: oxyCODONE 5 MG Tablet PO (20:27)
--- NOTE | 2022-09-20 20:38 | RAD_ITS ---
STUDY: XR Ankle Min 3 Views REASON FOR EXAM: Female, 32 years old. ANKLE PAIN TECHNIQUE: XR Ankle Min 3 Views RIGHT COMPARISON: None. FINDINGS: Normal visualized distal tibia and fibula. Normal medial and lateral malleoli. Normal tibiotalar articulation and ankle mortise. The visualized subtalar, talonavicular, calcaneocuboid and tarsal articulations are normal. There is a plantar calcaneal spur. There is soft tissue swelling around the ankle. RAD/Ankle min 3 Views IMPRESSION: There is soft tissue swelling. Electronically Signed: Pillo Gaming MD at 20:59 EDT ,
--- NOTE | 2022-09-20 21:25 | EX.ED.DYSGE1 ---
HPI History of Present Illness Chief Complaint: Lower Extremity Injury Narrative Narrative: 32-year-old female here with right foot and ankle pain after mechanical fall. Patient states she hit her head but did not lose consciousness no vomiting no focal weakness or numbness. Denies history of surgery to the right ankle. Patient states the pain is constant, severe without alleviating exacerbating features. [facility] Medical History (Updated 09/20/22 @ 21:[address] Sudarshan Andre, DO) Anxiety and depression Arthritis Asthma Bipolar 1 disorder Choledocholithiasis Depression GERD (gastroesophageal reflux disease) History of alcohol abuse History of substance abuse Hypertension Hypocalcemia IBS (irritable bowel syndrome) Memory loss Neuropathy Schizophrenia Seasonal allergies Seizures Suicidal thoughts Home Medications omeprazole 20 mg capsule,delayed release 20 mg PO DAILY GERD 03/10/18 [History Last Taken 09/11/20] haloperidol 5 mg tablet 5 mg PO DAILY psych 06/15/19 [History Last Taken 08/05/21 08:30] albuterol sulfate 90 mcg/actuation aerosol inhaler (Ventolin HFA) 2 puff inhalation Q6H PRN Shortness Of Breath 11/25/20 [History Last Taken Unknown] folic acid 1 mg tablet 1 mcg PO DAILY supplement 06/06/21 [History Last Taken 07/08/21] egbfpwzs-[id number]-FM-[id number] 3.3 mg-3 mg-10 mg-0.5 mg/mL ear drops,susp (Cortisporin-TC) 4 drp LEFT EAR TID 7 days #10 mL 06/07/21 [Rx Last Taken Unknown] trazodone 100 mg tablet 100 mg PO QHS sleep 07/08/21 [History Last Taken 07/08/21] haloperidol decanoate 50 mg/mL intramuscular solution 50 mg IM QMONTH psych 07/09/21 [History Last Taken 06/27/21] ibuprofen 400 mg tablet 400 mg PO Q4H PRN PRN Pain 1-10 Or Fever #0 tabs 07/10/21 [Rx Last Taken Unknown] oxycodone 5 mg tablet 5 - 10 mg PO Q6H PRN pain 5 days #20 tabs 07/10/21 [Rx Last Taken Unknown] Allergy/AdvReac Type Severity Reaction Status Date / Time Bleach (Sodium Hypochlorite) Allergy Mild rash Verified 09/20/22 18:50 acetaminophen Allergy breaks Verified 09/20/22 18:50 out in hives and throat swells shut bacitracin Allergy Unknown Verified 09/20/22 18:50 Latex, Natural Rubber Allergy Rash Verified 09/20/22 18:50 Penicillins Allergy Unknown Verified 09/20/22 18:50 Family History Aunt Diabetes Father Myocardial infarction, Onset Age: 50 Grandmother Myocardial infarction, Onset Age: 70 Other Alcoholism Anxiety and depression Arthritis Asthma Breast cancer CVA (cerebral vascular accident) Cancer Colon cancer Heart disease Hyperlipemia Hypertension Kidney disease Liver disease Osteoporosis Thyroid disorder Surgical History History of breast biopsy History of hernia repair History of removal of cyst S/P ERCP S/P laparoscopic cholecystectomy Social History Smoking Status: Former smoker Tobacco: How many years used: 22 alcohol intake: current substance use type: marijuana what type of physical activity do you participate in: walking and bicycling ROS ROS ED ROS Narrative Constitutional: Denies fever HEENT: Denies sore throat Neck: Denies neck pain Cardiovascular: Denies chest pain, syncope Respiratory: Denies shortness of breath GI: Denies nausea vomiting or abdominal pain : Denies changes in urinary habits Musculoskeletal: Right foot pain Neurologic: Denies numbness weakness or loss of sensation Skin denies rash EXAM Physical Exam Narrative Exam Narrative: Nursing triage notes reviewed, Vital signs reviewed Constitutional: please see mdm HENT: MMM Eyes: Pupils equal round and reactive to light, Extraocular muscles intact Neck: No stridor, no JVD, full neck ROM Lungs: Clear to auscultation, No wheezing or rales. No increased work of breathing, no conversational dyspnea, no accessory muscle use, no nasal flaring. No respiratory distress noted Heart: Regular rate and rhythm, No murmurs, No rubs and No gallops, 2+ distal pulses (radial, femoral, posterior tibial) in all extremities Abdomen: Soft, there is no tenderness, rigidity, rebound or guarding, no obvious peritoneal signs, no palpable pulsatile abdominal masses, no auscultated abdominal bruit : No CVAT Extremities: No obvious deformity, TTP over right ankle and dorsal surface of right foot Neuro: Intact sensation L1-S1 dermatomal distributions. Intact 5/5 strength in hip flexion (T12-L3). Knee extension (L2-L4). Ankle dorsiflexion (L4-L5). Ankle plantar flexion (S1). Great toe extension (L5). 2+ patellar and Achilles DTRs. Skin: No rash or lesions noted, no evidence of open fracture Const Vital Signs: 09/20/22 18:47 Temperature 97.9 F Temperature Source Temporal Pulse Rate 93 Respiratory Rate 14 Blood Pressure 130/92 H Blood Pressure Mean 104 Pulse Ox 99 Oxygen Delivery Method Room Air MDM MDM MDM Narrative Medical decision making narrative: 32-year-old female here with right foot and ankle pain. No evidence of compartment syndrome, arterial occlusion, necrotizing fasciitis on initial exam patient was hemodynamically stable afebrile and nontoxic-appearing. Obtained images rule out fracture dislocation. Imaging was negative. Patient was given an Sylvain wrap and discharged in stable condition with close PCP follow-up. Radiography Diagnostic Testing: Clinical Impression(s) from Imaging Studies Foot X-Ray 09/20/22 20:16 IMPRESSION: Soft tissue swelling around the ankle and foot. Electronically Signed: Pillo Gaming MD at 21:00 EDT , Ankle X-Ray 09/20/22 20:38 IMPRESSION: There is soft tissue swelling. Electronically Signed: Pillo Gaming MD at 20:59 EDT , Treatment and Re-Evaluation Narrative: Patient ambulated out of the ED in stable condition Discharge Plan Triage Chief Complaint: Lower Extremity Injury ED Provider: Sudarshan Andre Dx/Rx/DC Orders Clinical Impression: Ankle sprain, Contusion of foot Instructions: ED Ankle Sprain (Adult), ED Foot Contusion Prescriptions: No Action albuterol sulfate [Ventolin HFA] 90 mcg/actuation HFA aerosol inhaler 2 puff INHALATION Q6H PRN (Reason: Shortness Of Breath) omeprazole 20 MG capsule 20 mg PO DAILY haloperidol 5 tablet 5 mg PO DAILY folic acid 1 mg tablet 1 mcg PO DAILY Cortisporin-TC 3.3-3-10-0.5 mg/mL drops,suspension 4 drp LEFT EAR TID 7 Days Qty: 10 0RF trazodone 100 mg tablet 100 mg PO QHS haloperidol decanoate 50 mg/mL solution 50 mg IM QMONTH ibuprofen 400 mg Tablet 400 mg PO Q4H PRN PRN (Reason: Pain 1-10 Or Fever) Qty: 0 0RF oxycodone 5 mg tablet 5 - 10 mg PO Q6H PRN (Reason: pain) 5 Days Qty: 20 0RF Primary Care Provider: Gayatri Grubbs Referrals: Gayatri Grubbs MD [Primary Care Provider] - Activity Restrictions/Additional Instructions: Please take Tylenol, ibuprofen as needed for further pain control. Please return if develop loss of sensation, coolness to touch, change in appearance, numbness, inability to ambulate Disposition Disposition: Home, Self Care
== END 2022-09-20 22:18 | disposition home or self-care (01) ==
PROVIDERS: Emergency Provider Emergency Medicine; PCP Internal Medicine; Visit Provider Emergency Medicine
DX: S93.401A Sprain of unspecified ligament of right ankle, initial encounter (principal); F20.9 Schizophrenia, unspecified; F31.9 Bipolar disorder, unspecified; S90.31XA Contusion of right foot, initial encounter; W19.XXXA Unspecified fall, initial encounter; I10 Essential (primary) hypertension; J45.909 Unspecified asthma, uncomplicated; K21.9 Gastro-esophageal reflux disease without esophagitis; F41.9 Anxiety disorder, unspecified; Z79.899 Other long term (current) drug therapy; Z87.891 Personal history of nicotine dependence
CPT/HCPCS: 73610; 73630; 99283

== ENCOUNTER 2025-05-18 12:48 | Emergency (ER) | payer MEDICAID, SELFPAY ==
[2025-05-18 12:49] VITALS: BP 133/81; PULSE 91; RESP 18; TEMP 36.6; O2SAT 94; BMI 49.4
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
--- OUTSIDE RECORDS SUMMARY | 2025-05-18 13:38 | XMS RPT_ITS | CCD ---
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 Role Phone Romie MUELLER, Selena Primary Care Provider Sudarshan Andre Attending Unavailable Selena Robert Primary Care Unavailable Selena Robert MD Primary Care Provider Unavailable Primary Care Provider UnavailKYLAH Brown Referring Unavailable SELENA ROBERT Primary Care Unavailable KYLAH BRUNO Attending Unavailable SELENA ROBERT Primary Care Unavailable DR GISSEL SAEED DO Attending Unavailable PHYSICIAN, NONE Primary Care Unavailable Unavailable Primary Care Provider UnavailSelena Emerson MD Primary Care Provider [phone] SELENA ROBERT Primary Care Unavailable VANESA SALDIVAR Attending Unavailable CLAUDETTE URBANO Attending Unavailable RANULFO ELIZONDO Attending Unavailable LEX DEVINE Attending Unavailable LEX DEVINE Admitting Unavailable GAMALIEL MO Attending Unavailable Allergies Allergy Classification Reported Allergen(s) Allergy Type Date of Onset Reaction(s) Facility (8 sources) Latex; Translations: [LATEX] Propensity to adverse reactions 0 Rash [facility] (3 sources) Penicillins; Translations: [PENICILLINS] Propensity to adverse reactions 0 [facility] (5 sources) Penicillins Propensity to adverse reactions 0 [facility] (1 source) Acetaminophen Drug Allergy 2 breaks out in hives and throat swells shut [facility] Work Phone: (1 source) Bacitracin Drug Allergy 2 Unknown [facility] Work Phone: (1 source) Hypochlorite Drug Allergy 2 rash [facility] Work Phone: (1 source) natural latex rubber Allergy to substance 2 Rash [facility] Work Phone: (1 source) Penicillins Allergy to substance 2 Unknown [facility] Work Phone: (1 source) Acetaminophen Drug Allergy 2 [facility] (1 source) Bacitracin Drug Allergy 2 [facility] (1 source) natural latex rubber Drug allergy (disorder) 2 [facility] (1 source) Penicillins Drug allergy (disorder) 2 [facility] (1 source) Bleach (Sodium Hypochlorite) Drug allergy (disorder) 2 [facility] (16 sources) Latex Propensity to adverse reactions 3 [facility] (16 sources) Penicillins Propensity to adverse reactions 3 [facility] (4 sources) Amoxicillin Drug Allergy 4 [facility] Medications Current Medications Medication Drug Class(es) Dates Sig (Normalized) Sig (Original) [id number] 200 actuat albuterol 0.09 mg/actuat metered dose inhaler (15 sources) beta2-Adrenergic Agonist Start: 08-13-2024 End: 08-13-2025 take 2 puff(s) by inhalation every four hours as needed for wheezing albuterol 108 (90 Base) MCG/ACT inhaler Indications: Chronic Obstructive Pulmonary Disease Inhale 2 puffs every 4 hours as needed for wheezing or shortness of breath. 18 g 08/13/2024 08/13/2025 Active Start: 06-22-2024 End: 06-22-2024 2.5 mg, Nebulization, Once, On 06/22/24 at 1500, For 1 dose Start: 11-25-2020 take 1 puff(s) by in halation every six hours Albuterol Sulfate (Ventolin Hfa) 90 mcg/actuation HFA aerosol inhaler Active 2 PUFF INHALATION EVERY 6 HOURS November 25, 2020 1:00am Start: 09-15-2019 take 2 puff(s) by in halation every four hours as needed albuterol HFA (PROVENTIL HFA, VENTOLIN HFA) 90 mcg/actuation inhaler Indications: Viral bronchitis Inhale 2 Puffs as instructed every 4 hours as needed. 1 Inhaler 09/15/2019 Active Comment on above: Inhale 2 Puffs as in structed every 4 hours as needed. amantadine hydrochloride 100 mg oral capsule (10 sources) Influenza A M2 Protein Inhibitor Start: 12-20-19 amantadine (Symmetrel) 100 MG capsule Indications: Drug-Induced Extrapyramidal Reaction 07/31/2024 Active benztropine mesylate 1 mg oral tablet (7 sources) Anticholinergic, Antihistamine Start: 08-07-20 take 1 tablet by mouth twice daily benztropine (COGENTIN) 1 mg tablet Take 1 mg by mouth twice daily. 08/07/2019 Active Start: 06-15-2019 End: 11-25-2020 take 1 mg by mouth twice daily Benztropine Discontinue d 1 MG PO TWICE A DAY June 15, 2019 12:00am November 25, 2020 2:18pm Comment on above: Take 1 mg by mouth t wice daily. busPIRone hydrochloride 30 mg oral tablet (6 sources) Start: 07-31-2024 busPIRone (Buspar) 30 MG tablet 07/31/2024 Active Start: 04-13-2024 End: 04-13-2024 busPIRone (Buspar) tablet 30 mg colistin 3 mg/ml / hydrocortisone 10 mg/ml / neomycin 3.3 mg/ml / thonzonium bromide 0.5 mg/ml otic suspension (1 source) Aminoglycoside Antibacterial, Corticosteroid Start: 06-07-2021 [id number]-Lnmckx-Un-Thonzoniu m (Cortisporin-Tc) 3.3-3-10-0.5 mg/mL drops,suspension Active 4 DRP LEFT EAR THREE TIMES A DAY 10 June 07, 2021 12:00am [id number] 0.3 ml EPINEPHrine 1 mg/ml auto-injector (6 sources) alpha-Adrenergic Agonist, beta-Adrenergic Agonist, Catecholamine Start: 08-13-2024 EPINEPHrine (Epipen) 0.3 MG/0.3ML injection syringe Indications: Anaphylaxis Inject 0.3 mL (0.3 mg) as directed Once as needed for anaphylaxis for up to 1 dose. Inject into upper leg. Call 911 after use. 1 each 08/13/2024 Active famotidine 20 mg oral tablet (4 sources) Histamine-2 Receptor Antagonist take 1 tablet by mouth in the morning famotidine (Pepcid) 20 MG tablet Take 1 tablet by mouth in the morning and 1 tablet in the evening. Active FLUoxetine 40 mg oral capsule (6 sources) Serotonin Reuptake Inhibitor Start: 08-02-2024 FLUoxetine (PROzac) 40 MG capsule 08/02/2024 Active Start: 04-13-2024 End: 04-13-2024 FLUoxetine (PROzac) capsule 20 mg fluticasone propionate 0.05 mg/actuat metered dose nasal spray (7 sources) Corticosteroid Start: 12-25-2020 End: 03-07-2022 take 2 spray(s) by mouth once daily fluticasone (FLONASE) 50 mcg/actuation nasal spray Indications: Rhinitis, unspecified type Use 2 Sprays in each nostril once daily. Rinse mouth after use. 1 Each 5 03/07/2022 Active Comment on above: Use 2 Sprays in each nostril once daily. Rinse mouth after use. folic acid 1 mg oral tablet (2 sources) Start: 06-06-2021 take 1 ug by mouth once daily Folic Acid Active 1 MCG PO DAILY June 06, 2021 12:00am Start: 05-26-2021 End: 03-07-2022 take 1 tablet by mouth once daily folic acid 1 mg tablet Take 1 tablet by mouth once daily. 30 tablet 05/26/2021 03/07/2022 Discontinued (Discontinued by Patient) Comment on above: Take 1 tablet by nelly once daily. 1 ml haloperidol decanoate 50 mg/ml injection (7 sources) Typical Antipsychotic Start: 021 inject 50 mg by intramuscular injection every month Haloperidol Decanoate Active 50 MG IM EVERY MONTH July 09, 2021 12:00am Start: 11-25-2019 haloperidol de canoate (HALDOL) 50 mg/mL injection Inject intramuscularly once every month. 0 11/25/2019 Active Start: 08-16-2019 End: 11-25-2020 take 2.5 mg by mouth once daily Haloperidol Discontinued 2.5 MG PO DAILY August 16, 2019 12:00am November 25, 2020 2:18pm Start: 06-15-2019 haloperidol (H ALDOL) 5 mg tablet Comment on above: Inject intramuscular ly once every month. hydrOXYzine pamoate 50 mg oral capsule (7 sources) Antihistamine Start: 06-15-2019 hydrOXYzine pamoate (VISTARIL) 50 mg capsule 50 mg twice daily. 06/15/2019 Active Start: 06-15-2019 End: 11-25-2020 take 50 mg by mouth three times daily Hydroxyzine Pamoate Discontinued 50 MG PO THREE TIMES A DAY June 15, 2019 12:00am November 25, 2020 2:18pm Comment on above: 50 mg twice daily. ibuprofen 600 mg oral tablet (6 sources) Nonsteroidal Anti-inflammatory Drug Start: 03-21-2025 End: 03-28-2025 take 1 tablet by mouth every six hours as needed for pain ibuprofen 600 MG tablet Take 1 tablet (600 mg) by mouth every 6 hours as needed for mild pain (1-3) for up to 7 days. 28 tablet 03/21/2025 03/28/2025 Active Start: 03-19-2024 End: 03-26-2024 take 1 tablet by mouth every six hours as needed for pain ibuprofen 600 MG tablet Take 1 tablet (600 mg) by mouth every 6 hours as needed for mild pain (1-3) for up to 7 days. 28 tablet 0 03/19/2024 03/26/2024 Start: 07-10-2021 take 400 mg by mouth every four hours as needed Ibuprofen Active 400 MG PO EVERY 4 HOURS NEEDED 0 July 10, 2021 12:00am lamoTRIgine 25 mg oral tablet (4 sources) Mood Stabilizer, Anti-epileptic Agent Start: 07-31-2024 lamoTRIgine (LaMICtal) 25 MG tablet 07/31/2024 Active lidocaine 0.05 mg/mg medicated patch (15 sources) Antiarrhythmic, Amide Local Anesthetic Start: 02-21-2023 apply 1 dose transdermal route once daily, then apply 1 dose transdermal route every twelve hours lidocaine (Lidoderm) 5 % patch Apply 1 patch topically daily. Remove & discard patch within 12 hours or as directed by . 6 patch 02/21/2023 Active naproxen 500 mg oral tablet (2 sources) Nonsteroidal Anti-inflammatory Drug Start: 02-21-2023 End: 03-03-2023 take 1 tablet by mouth in the morning naproxen (Naprosyn) 500 MG tablet Take 1 tablet (500 mg) by mouth in the morning and 1 tablet (500 mg) in the evening. Take with meals. Do all this for 10 days. 20 tablet 0 02/21/2023 03/03/2023 Active Start: 07-27-2020 End: 11-25-2020 take 500 mg by mouth twice daily Naproxen Discontinued 500 MG PO TWICE A DAY July 27, 2020 12:00am November 25, 2020 2:18pm omeprazole 20 mg delayed release oral capsule (9 sources) Proton Pump Inhibitor Start: 03-10-2018 End: 01-09-2023 take 1 capsule by mouth once daily before breakfast omeprazole (PRILOSEC) 20 mg capsule Indications: Gastroesophageal reflux disease without esophagitis TAKE 1 CAPSULE BY MOUTH EVERY MORNING 1/2 HOUR BEFORE BREAKFAST 30 capsule 5 01/09/2023 Active Comment on above: TAKE 1 CAPSULE BY MO UTH DAILY 1/2 BEFORE BREAKFAST TAKE 1 CAPSULE BY MO UTH EVERY MORNING 1/2 HOUR BEFORE BREAKFAST oxyCODONE hydrochloride 5 mg oral tablet (1 source) Opioid Agonist Start: 07-10-2021 take 5-10 mg by mouth every six hours Oxycodone Active 5 - 10 MG PO EVERY 6 HOURS 20 5 July 10, 2021 1.5 ml paliperidone palmitate 156 mg/ml prefilled syringe (14 sources) Atypical Antipsychotic Start: 07-23-2024 Invega Sustenna 234 MG/1.5ML suspension prefilled syringe Indications: Schizophrenia 07/23/2024 Active Start: 07-23-2024 paliperidone ( Invega) 6 MG 24 hr tablet 07/23/2024 Active Start: 12-22-2022 take 1 tablet by nelly th once daily in the morning INVEGA 3 mg 24 hr tablet TAKE 1 TABLET BY MOUTH ONCE DAILY IN THE MORNING 12/22/2022 Active Comment on above: TAKE 1 TABLET BY NELLY TH ONCE DAILY IN THE MORNING predniSONE 20 mg oral tablet (2 sources) Start: 4 End: 4 take 2 tablets by mouth once daily predniSONE (Deltasone) 20 MG tablet Indications: Viral URI with cough , Acute cough , Chronic dyspnea , Muscular aches , Diffuse arthralgia Take 2 tablets (40 mg) by mouth daily for 5 days. 10 tablet 08/13/2024 08/18/2024 Active traZODone hydrochloride 50 mg oral tablet (11 sources) Serotonin Reuptake Inhibitor Start: traZODone (DESYREL) 50 mg tablet 12/20/2022 Active Start: 07-08-2021 take 100 mg by mouth at bedtim e Trazodone Active 100 MG PO AT BEDTIME July 08, 2021 12:00am divalproex sodium 250 mg delayed release oral tablet (4 sources) Mood Stabilizer, Anti-epileptic Agent Start: 01-19-2024 divalproex (Depakote) 250 MG EC tablet 01/19/2024 Active Completed/Discontinued Medications Medication Drug Class(es) Dates Sig (Normalized) Sig (Original) acetaminophen 500 mg oral tablet (9 sources) Start: 03-21-2025 End: 03-21-2025 1,000 mg, Oral, Once, On Mon03/21/25 at 1815, For 1 dose, Maximum dose of acetaminophen is 4000 mg from all sources in 24 hours. Start: 03-21-2025 End: 03-31-2025 take 1 tablet by mouth every six hours as needed for pain acetaminophen (Tylenol Extra Strength) 500 MG tablet Take 1 tablet (500 mg) by mouth every 6 hours as needed for mild pain (1-3) for up to 10 days. 30 tablet 03/21/2025 03/31/2025 Active Start: 04-13-2024 End: 04-13-2024 acetaminophen (Tylenol) tabl et 1,000 mg Start: 03-19-2024 End: 03-26-2024 take 2 tablets by mouth every eight hours as needed for pain acetaminophen (Tylenol) 500 MG tablet Take 2 tablets (1,000 mg) by mouth every 8 hours as needed for mild pain (1-3) for up to 7 days. 30 tablet 0 03/19/2024 03/26/2024 acetaminophen 325 mg / HYDROcodone bitartrate 5 mg oral tablet (1 source) Opioid Agonist Start: 12-16-2019 End: 12-19-2019 take 1 tablet by mouth every six hours as needed Hydrocodone-Acetaminophen Discontinued 1 TABLET PO EVERY 6 HOURS NEEDED 10 3 December 16, 2019 December 19, 2019 1:08am albuterol 0.833 mg/ml / ipratropium bromide 0.167 mg/ml inhalation solution (2 sources) Anticholinergic, beta2-Adrenergic Agonist Start: 06-22-2024 End: 06-22-2024 3 mL, Nebulization, Once, On 06/22/24 at 1430, For 1 dose aspirin 81 mg chewable tablet (2 sources) Platelet Aggregation Inhibitor, Nonsteroidal Anti-inflammatory Drug Start: 07-02-2024 End: 07-02-2024 take 324 mg by mouth once 324 mg, Oral, Once, On Mon07/02/24 at 1205, For 1 dose carbamide peroxide 65 mg/ml otic solution (1 source) Start: 12-06-2019 End: 03-07-2022 carbamide peroxide (DEBROX) 6.5 % otic solution Use 5 Drops in both ears twice daily. 1 Bottle 0 12/06/2019 03/07/2022 Discontinued (Discontinued by Patient) Comment on above: Use 5 Drops in both ears twice daily. cyclobenzaprine hydrochloride 10 mg oral tablet (1 source) Muscle Relaxant Start: 12-26-2019 End: 03-07-2022 take 1 tablet by mouth three times daily as needed for muscle spasms cyclobenzaprine (FLEXERIL) 10 mg tablet Indications: Contusion of rib on left side, subsequent encounter Take 1 tablet by mouth three times daily as needed for Muscle Spasm. 30 tablet 0 12/26/2019 03/07/2022 Discontinued (Discontinued by Patient) Comment on above: Take 1 tablet by [facility] three times daily as needed for Muscle Spasm. 2 ml dicyclomine hydrochloride 10 mg/ml injection (1 source) Anticholinergic Start: 10-04-2023 End: 10-04-2023 dicyclomine (Bentyl) injection 20 mg hydrocortisone 10 mg/ml / neomycin 3.5 mg/ml / polymyxin b [id number] unt/ml otic solution (1 source) Aminoglycoside Antibacterial, Polymyxin-class Antibacterial, Corticosteroid Start: 12-06-2019 End: 03-07-2022 [id number] rtisone (CORTISPORIN) otic solution Indications: Acute otitis externa of right ear, unspecified type Use 4 Drops in the right ear three times daily. 1 Bottle 0 12/06/2019 03/07/2022 Discontinued (Discontinued by Patient) Comment on above: Use 4 Drops in the r ight ear three times daily. iloperidone 8 mg oral tablet (1 source) Atypical Antipsychotic Start: 06-19-2018 End: 03-07-2022 iloperidone (FANAPT) 8 mg tab Takes 8mg in qAM and takes 10mg qHS 0 06/19/2018 03/07/2022 Discontinued (Discontinued by Patient) Comment on above: Takes 8mg in qAM and takes 10mg qHS iopamidol (Isovue-370) 76 % injection 75 mL (5 sources) Start: 06-22-2024 End: 06-22-2024 take 75 mL intravenously once as needed 75 mL, IntraVENous, IMG once PRN, contrast, Starting on 06/22/24 at 1832, For 1 dose Start: 03-18-2024 End: 03-18-2024 iopamidol (Isovue-370) 76 % injection 75 mL Start: 10-04-2023 End: 10-04-2023 iopamidol (Isovue-370) 76 % injection 75 mL 1 ml ketorolac tromethamine 30 mg/ml cartridge (4 sources) Nonsteroidal Anti-inflammatory Drug, Cyclooxygenase Inhibitor Start: 06-22-2024 End: 06-22-2024 30 mg, IntraVENous, Once, On 06/22/24 at 1430, For 1 dose Start: 03-18-2024 End: 03-18-2024 ketorolac (Toradol) injectio n 15 mg meclizine hydrochloride 25 mg oral tablet (2 sources) Antiemetic Start: 07-02-2024 End: 07-02-2024 take 25 mg by mouth once 25 mg, Oral, Once, On Mon07/02/24 at 1215, For 1 dose melatonin 3 mg oral tablet (1 source) Start: 10-21-2019 End: 03-07-2022 take 1 tablet by mouth once daily at bedtime melatonin 3 mg tablet Take 1 tablet by mouth daily at bedtime. 0 10/21/2019 03/07/2022 Discontinued (Discontinued by Patient) Comment on above: Take 1 tablet by nelly th daily at bedtime. methylPREDNISolone 125 mg injection (2 sources) Corticosteroid Start: 06-22-2024 End: 06-22-2024 125 mg, IntraVENous, Once, On 06/22/24 at 1430, For 1 dose 1 ml morphine sulfate 4 mg/ml cartridge (2 sources) Opioid Agonist Start: 06-22-2024 End: 06-22-2024 take 1 dose by mouth every hour 4 mg, IntraVENous, Once, On 06/22/24 at 1430, For 1 dose, If oral and IV narcotics ordered, use oral first and only use IV if oral is ineffective or cannot take oral. Do Not give oral and IV within 1 hour of each other unless specifically ordered. multivitamin tablet (1 source) Start: 10-02-2020 End: 03-07-2022 take 1 tablet by mouth once daily multivitamin tablet Take 1 tablet by mouth once daily. 30 tablet 4 10/02/2020 03/07/2022 Discontinued (Discontinued by Patient) Comment on above: Take 1 tablet by [facility] once daily. 2 ml ondansetron 2 mg/ml injection (5 sources) Serotonin-3 Receptor Antagonist Start: 06-22-2024 End: 06-22-2024 4 mg, IntraVENous, Once, On 06/22/24 at 1430, For 1 dose Start: 03-18-2024 End: 03-18-2024 ondansetron (Zofran) injecti on 4 mg Start: 02-21-2023 End: 02-24-2023 take 1 tablet by mouth every six hours ondansetron (Zofran) 4 MG tablet Take 1 tablet (4 mg) by mouth in the morning and 1 tablet (4 mg) at noon and 1 tablet (4 mg) in the evening and 1 tablet (4 mg) before bedtime. Do all this for 3 days. 12 tablet 0 02/21/2023 02/24/2023 Active prazosin 2 mg oral capsule (2 sources) alpha-Adrenergic [facility] Start: 11-26-2019 End: 03-07-2022 take 1 capsule by mouth once daily prazosin (MINIPRESS) 2 mg cap Take 1 capsule by mouth once daily. 0 11/26/2019 03/07/2022 Discontinued (Discontinued by Patient) Start: 03-10-2018 End: 03-07-2022 prazosin (MINIPRESS) 1 mg ca p AT BEDTIME 0 03/10/2018 03/07/2022 Discontinued (Discontinued by Patient) Comment on above: AT BEDTIME Take 1 capsule by mo [facility] once daily. 50 ml sodium chloride 9 mg/ml injection (4 sources) Start: 06-22-2024 End: 06-22-2024 500 mL, IntraVENous, at 500 mL/hr, Administer over 1 Hours, Once, On 06/22/24 at 1430, For 1 dose Start: 03-18-2024 End: 03-19-2024 sodium chloride 0.9 % bolus 1,000 mL topiramate 25 mg oral tablet (1 source) Start: 09-15-2017 End: 03-07-2022 topiramate (TOPAMAX) 25 mg tablet topiramate Topiramate 1 - 3 TABLET ORAL NEEDED PRN For Sleep September 15, 2017 Active 09-15-2017 [facility] ([id number]) 0 09/15/2017 03/07/2022 Discontinued Comment on above: topiramate Topiramat e 1 - 3 TABLET ORAL NEEDED PRN For Sleep September 15, 2017 Active 09-15-2017 [facility] ([id number]) Problems Active Problems Problem Classification Problem Date Documented Da te Episodic/Chronic Alcohol-related disorders (1 source) History of alcohol abuse; Translations: [Alcohol abuse, in remission] Chronic Anxiety disorders (7 sources) Posttraumatic stress disorder; Translations: [Post-traumatic stress disorder, unspecified] Onset: 7 11-06-2017 Chronic Asthma (1 source) Asthma; Translations: [Unspecified asthma, uncomplicated] Chronic Biliary tract disease (2 sources) Disorder of biliary tract; Translations: [Other specified diseases of biliary tract] 03-19-2024 Chronic Biliary tract disease (2 sources) Common bile duct calculus; Translations: [Calculus of bile duct without cholangitis or cholecystitis without obstruction] Episodic Coagulation and hemorrhagic disorders (6 sources) Platelet count below reference range; Translations: [Thrombocytopenia, unspecified] Onset: 0 06-09-2010 Chronic E Codes: Adverse effects of medical drugs (1 source) Adverse reaction to drug; Translations: [Adverse effect of unspecified drugs, medicaments and biological substances, initial encounter] Episodic E Codes: Fall (1 source) Fall; Translations: [Unspecified fall, initial encounter] Episodic Epilepsy; convulsions (1 source) Seizure; Translations: [Unspecified convulsions] Episodic Esophageal disorders (4 sources) Gastroesophageal reflux disease without esophagitis; Translations: [Gastro-esophageal reflux disease without esophagitis] Chronic Essential hypertension (1 source) Hypertensive disorder; Translations: [Essential (primary) hypertension] Chronic Genitourinary symptoms and ill-defined conditions (3 sources) Dysuria; Translations: [Dysuria] Onset: 3 Episodic Headache; including migraine (6 sources) Migraine without aura; Translations: [Migraine without aura, not intractable, without status migrainosus] Onset: 7 11-06-2017 Chronic Immunizations and screening for infectious disease (1 source) Contact with and (suspected) exposure to infections with a predominantly sexual mode of transmission; Translations: [Possible exposure to STD] Onset: 3 Episodic Menstrual disorders (2 sources) Disorder of menstruation; Translations: [Irregular menstruation, unspecified] Onset: 3 Chronic Mood disorders (13 sources) Bipolar disorder; Translations: [Bipolar disorder, unspecified] Onset: 5 06-19-2015 Chronic Nausea and vomiting (1 source) Nausea with vomiting, unspecified; Translations: [Nausea and vomiting, unspecified vomiting type] Onset: 3 Episodic Osteoarthritis (1 source) Arthritis; Translations: [Unspecified osteoarthritis, unspecified site] Chronic Other and unspecified benign neoplasm (2 sources) Adrenal adenoma; Translations: [Benign neoplasm of unspecified adrenal gland] 03-19-2024 Episodic Other connective tissue disease (2 sources) Muscle pain; Translations: [Myalgia, unspecified site] 08-13-2024 Episodic Other ear and sense organ disorders (1 source) Acute otitis externa; Translations: [Unspecified acute noninfective otitis externa, left ear] Episodic Other gastrointestinal disorders (1 source) Irritable bowel syndrome; Translations: [Irritable bowel syndrome without diarrhea] Chronic Other gastrointestinal disorders (1 source) Constipation, unspecified; Translations: [Constipation, unspecified constipation type] Onset: 3 Episodic Other injuries and conditions due to external causes (1 source) Injury of head; Translations: [Unspecified injury of head, initial encounter] Episodic Other injuries and conditions due to external causes (1 source) Unspecified injury of unspecified lower leg, initial encounter; Translations: [Unspecified injury of unspecified lower leg, initial encounter] Onset: 2 Episodic Other injuries and conditions due to external causes (2 sources) Closed injury of head; Translations: [Unspecified injury of head, initial encounter] 04-13-2024 Episodic Other lower respiratory disease (2 sources) Cough; Translations: [Acute cough] 08-13-2024 Episodic Other nervous system disorders (1 source) Neuropathy; Translations: [Polyneuropathy, unspecified] Chronic Other non-traumatic joint disorders (1 source) Hip pain; Translations: [Pain in left hip] Episodic Other non-traumatic joint disorders (2 sources) Joint pain; Translations: [Pain in unspecified joint] 08-13-2024 Episodic Other nutritional; endocrine; and metabolic disorders (1 source) Severe obesity; Translations: [Morbid (severe) obesity due to excess calories] Chronic Other nutritional; endocrine; and metabolic disorders (7 sources) Morbid obesity; Translations: [Morbid (severe) obesity due to excess calories] Onset: 7 11-06-2017 Chronic Other nutritional; endocrine; and metabolic disorders (1 source) Hypocalcemia; Translations: [Hypocalcemia] Chronic Other upper respiratory disease (1 source) Rhinitis; Translations: [Chronic rhinitis] Chronic Other upper respiratory disease (1 source) Seasonal allergy; Translations: [Other seasonal allergic rhinitis] Chronic Residual codes; unclassified (1 source) Past history of procedure; Translations: [Other specified postprocedural states] Episodic Residual codes; unclassified (1 source) Amnesia; Translations: [Other amnesia] Episodic Schizophrenia and other psychotic disorders (7 sources) Schizophrenia; Translations: [Schizophrenia, unspecified] Onset: 7 11-06-2017 Chronic Sprains and strains (6 sources) Sprain of ankle; Translations: [Sprain of unspecified ligament of right ankle, initial encounter] Onset: 5 03-21-2025 Episodic Substance-related disorders (1 source) History of substance abuse; Translations: [Other psychoactive substance abuse, in remission] Chronic Suicide and intentional self-inflicted injury (1 source) Suicidal thoughts; Translations: [Suicidal ideations] Episodic Superficial injury; contusion (2 sources) Contusion of foot; Translations: [Contusion of unspecified foot, initial encounter] Episodic Unclassified (6 sources) Reflux; Translations: [Reflux] Onset: 0 06-04-2010 Unclassified (1 source) No history of clinical finding in subject; Translations: [No significant past medical history] Unclassified (1 source) Acute cough; Translations: [Acute cough] Onset: Past or Other Problems Problem Classification Problem Date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 it was. [facility] ED Provider Noteon ED Provider Note EMERGENCY DEPARTMENT ENCOUNTER Pt Name: Mariella Christine Birthdate 1990 Date of evaluation: 12/05/2024 ED Provider: Aleksnadar Lazo DO CHIEF COMPLAINT Chief Complaint Patient [...] for the entirety of this encounter. HPI Mariella Christine is a 34 y.o. who presents [...] to her by a bystander waiting outside [facility] emergency services. States she did not know [...] within 12 hours or as directed by . Qty: 6 patch, Refills: 0 paliperidone (Invega) [...] - Food Insecurity Present (09/12/2024) Received from [facility] Hunger Vital Sign Worried About Running Out [...] Session: Patient declined Stress: Patient Declined (12/06/2024) [employer] [place] [facility] [employer] [facility] - Occupational Stress Questionnaire Feeling of Stress : Patient declined Social Connections: Patient Declined (12/06/2024) Social Connection and [place] (more content not included)... Normal [facility] ETHANOLon 12-05-2024 ETHANOL IN SER/PLAS <10 Normal <10 [facility] Comment on above: Result Comment: ORDE R COMMENTS: [employer] depression is seen >100 mg/dL. NOTE: This result is for medical treatment only. Analysis performed using non-forensic procedures. Performed By: #### L AB46, LAB17, LAB18 #### Funeral Director/Embalmer/Owner: SADIE YANG ([phone]) [facility] [address] [place] [address] HCG QUALITATIVE URINEon Beta HCG ( test) Ql (U) Negative Normal Negative [facility] Comment on above: Result Comment: Michelle fraire note: Very dilute urine specimens, as indicated by a low specific gravity, may not contain food products sales representative levels of hCG. If is still suspected, a first morning urine specimen should be collected 48 hours later and tested. ORDER COMMENTS: is the most common reason for HCG in urine, although choriocarcinoma, hydatidiform mole, and certain nontrophoblastic malignancies also result in detectable urinary HCG levels. Sensitivity = 20mIU/mL. Performed By: #### L [id number] ####Funeral Director/Embalmer/Owner: SADIE YANG ([phone])[address] HEMOGLOBIN A1Con 12-05-2024 Glucose [Mass/Vol] 97 mg/dL Normal [facility] Comment on above: Result Comment: LING Gregory COMMENTS: If not done within last 12 months HbA1c values of 5.7-6.4 percent indicate an increased risk for developing diabetes mellitus. HbA1c values greater than or equal to 6.5 percent are diagnostic of diabetes mellitus. For diagnosis of diabetes in individuals without unequivocal hyperglycemia, results should be confirmed by repeat testing. Performed By: #### L [id number] ####Funeral Director/Embalmer/Owner: SADIE YANG ([phone])[facility] ([address] HEMOGLOBIN A1C 5.0 %HbA1C Normal <5.7 [facility] Comment on above: Result Comment: Norm al less than 5.7% Prediabetes 5.7% to 6.4% Diabetes 6.5% or higher --HgbA1C levels may not be accurate in patients who have renal disease, received recent blood transfusions, are anemic, or who have dyshemoglobinemia. Performed By: #### L [id number] ####Funeral Director/Embalmer/Owner: SADIE YANG ([phone])[facility])[address] [place] [address] LIPID PANELon 12-05-2024 Cholesterol [Mass/Vol] 130 mg/dL Normal <200 [facility] Comment on above: Order Comment: If no t done within last 12 months Performed By: #### L [id number] #### Funeral Director/Embalmer/Owner: SADIE [id number]) [facility] ([facility]) [address] [place] [address] [place] Cholesterol in HDL [Mass/Vol] 41 mg/dL Low >=60 [facility] Comment on above: Order Comment: If no t done within last 12 months Performed By: #### L [id number] #### Funeral Director/Embalmer/Owner: SADIE YANG ([phone]) [facility] [address] [place] [address] Cholesterol.total/Choles terol in HDL [Mass ratio] 3 {ratio} Normal [facility] Comment on above: Order Comment: If no t done within last 12 months Result Comment: Ref Range: < 3 Low Risk for CHD 3-6 Mod Risk for CHD > 6 High Risk for CHD Performed By: #### L [id number] #### Funeral Director/Embalmer/Owner: SADIE YANG ([phone]) [facility] [address] [place] [address] LOW DENSITY LIPOPROTEIN 69 mg/dL Normal 0-<100 [facility] Comment on above: Order Comment: If no t done within last 12 months Performed By: #### L [id number] #### Funeral Director/Embalmer/Owner: SADIE YANG ([phone]) [facility] ([facility]) [address] [place] [address] NON-HDL CHOLESTEROL, CALCULATED 89 Normal <130 [facility] Comment on above: Order Comment: If no t done within last 12 months Performed By: #### L [id number] #### Funeral Director/Embalmer/Owner: SADIE YANG ([phone]) [facility] [address] [place] [address] Triglyceride [Mass/Vol] 101 mg/dL Normal <150 [facility] Comment on above: Order Comment: If no t done within last 12 months Performed By: #### L [id number] #### Funeral Director/Embalmer/Owner: SADIE YANG ([phone]) [facility] [address] [place] [address] [place] VERY LOW DENSITY LIPOPROTEIN, CALCULATED 20 mg/dL Normal <=30 [facility] Comment on above: Order Comment: If no t done within last 12 months Performed By: #### L [id number] #### Funeral Director/Embalmer/Owner: SADIE YANG ([phone]) [address] SARS-COV-2 ANTIGENon 025 SARS-COV-2 ANTIGEN SARS-COV-2 ANTIGEN -BINAX Reference Negative Negative A negative result does not rule out the possibility of SARS-CoV-2 infection. NAAT-based methods should be considered for symptomatic patients presenting greater than seven days after onset of symptoms. Method: Lateral flow immunoassay. Fact sheets for healthcare providers and patients can be found at the following sites: https://www.fda.gov /media/753156/downl oad https://www.fda.gov /media/889702/downl oad Normal [facility] Comment on above: Performed By: #### L [id number] #### Funeral Director/Embalmer/Owner: SADIE YANG ([phone]) [facility]) [address] [place] [address] CBC W Auto Differential pane l (Bld)on 10-04-2024 Basophils (Bld) [#/Vol] 0 10*3/uL 0.0 - 0.2 10*3/uL [facility] Basophils/100 WBC (Bld) 0.5 % 0.0 - 2.0 % [facility] Eosinophils (Bld) [#/Vol] 0.1 10*3/uL 0.0 - 0.5 10*3/uL [facility] Eosinophils/100 WBC (Bld) 2 % 0.0 - 6.0 % [facility] Erythrocyte distribution width (RBC) [Ratio] 12.1 % 11.5 - 15.0 % [facility] Hematocrit (Bld) [Volume fraction] 45.7 % 35.0 - 47.0 % [facility] Hemoglobin (Bld) [Mass/Vol] 15.5 g/dL 11.7 - 16.0 g/dL [facility] Immature granulocytes (Bld) [#/Vol] 0 10*3/uL NINF - 0.1 10*3/uL [facility] Immature granulocytes/100 WBC (Bld) 0.2 % 0.0 - 2.0 % [facility] Interpretation and review of laboratory results Abnormal [facility] IPF 8 [facility] Lymphocytes (Bld) [#/Vol] 1.6 10*3/uL 1.0 - 4.3 10*3/uL [facility] Lymphocytes/100 WBC (Bld) 25.5 % 15.0 - 45.0 % [facility] MCH (RBC) [Entitic mass] 29.9 pg 26. 0 - 34.0 pg [facility] MCHC (RBC) [Mass/Vol] 33.9 % 30.5 - 36.0 % [facility] MCV (RBC) [Entitic vol] 88.2 fL 77.0 - 99.0 fL [facility] Monocytes (Bld) [#/Vol] 0.6 10*3/uL 0.0 - 0.9 10*3/uL [facility] Monocytes/100 WBC (Bld) 10 % 5.0 - 13.0 % [facility] Neutrophils (Bld) [#/Vol] 3.8 10*3/uL 1.8 - 7.5 10*3/uL [facility] Neutrophils/100 WBC (Bld) 61.8 % 38.0 - 82.0 % [facility] Nucleated RBC/100 WBC (Bld) [Ratio] 0 % [facility] Platelet mean volume (Bld) [Entitic vol] 11.9 fL 9.0 - 12.7 fL [facility] Platelets (Bld) [#/Vol] 111 10*3/uL Low 140 - 440 10*3/uL [facility] RBC (Bld) [#/Vol] 5.18 10*6/uL 3.80 - 5.2 0 10*6/uL [facility] WBC (Bld) [#/Vol] 6.1 10*3/uL 3.6 - 10.7 10*3/uL [facility] CBC WITH AUTO DIFFERENTIALon 10-04-2024 Basophils (Bld) [#/Vol] 0.0 10*3/uL Normal 0.0-0.2 [facility] Comment on above: Performed By: #### L [id number] ####Funeral Director/Embalmer/Owner: SADIE YANG ([phone])[address] Basophils/100 WBC (Bld) 0.5 % Normal 0.0-2.0 [facility] Comment on above: Performed By: #### L [id number] ####Funeral Director/Embalmer/Owner: SADIE YANG ([phone])[facility])[address] [place] [address] Eosinophils (Bld) [#/Vol] 0.1 10*3/uL Normal 0.0-0.5 [facility] Comment on above: Performed By: #### L [id number] ####Funeral Director/Embalmer/Owner: SADIE YANG ([phone])[facility])[address] [place] [address] Eosinophils/100 WBC (Bld) 2.0 % Normal 0.0-6.0 [facility] Comment on above: Performed By: #### L [id number] ####Funeral Director/Embalmer/Owner: SADIE YANG ([phone])[facility])[address] [place] [address] Erythrocyte distribution width (RBC) [Ratio] 12.1 % Normal 11.5-15.0 [facility] Comment on above: Performed By: #### L [id number] ####Funeral Director/Embalmer/Owner: SADIE YANG ([phone])[facility])[address] [place] [address] Hematocrit (Bld) [Volume fraction] 45.7 % Normal 35.0-47.0 [facility] Comment on above: Performed By: #### L [id number] ####Funeral Director/Embalmer/Owner: SADIE YANG ([phone])[facility])[address] [place] [address] Hemoglobin (Bld) [Mass/Vol] 15.5 g/dL Normal 11.7-16.0 [facility] Comment on above: Performed By: #### L [id number] ####Funeral Director/Embalmer/Owner: SADIE YANG ([phone])[facility])[address] [place] [address] IMMATURE GRANS % 0.2 % Normal 0.0-2.0 [facility] Comment on above: Performed By: #### L [id number] ####Funeral Director/Embalmer/Owner: SADIE YANG ([phone])[facility])[address] [place] [address] IMMATURE GRANS ABSOLUTE 0.0 10*3/uL Normal <0.1 [facility] Comment on above: Performed By: #### L [id number] ####Funeral Director/Embalmer/Owner: SADIE YANG ([phone])[facility])[address] [place] [address] IPF 8 Normal [facility] Comment on above: Performed By: #### L [id number] ####Funeral Director/Embalmer/Owner: SADIE YANG ([phone])[facility])[address] [place] [address] Lymphocytes (Bld) [#/Vol] 1.6 10*3/uL Normal 1.0-4.3 [facility] Comment on above: Performed By: #### L [id number] ####Funeral Director/Embalmer/Owner: SADIE YANG ([phone])[facility])[address] [place] [address] Lymphocytes/100 WBC (Bld) 25.5 % Normal 15.0-45.0 [facility] Comment on above: Performed By: #### L [id number] ####Funeral Director/Embalmer/Owner: SADIE YANG ([phone])[facility])[address] [place] [address] MCH (RBC) [Entitic mass] 29.9 pg Normal 26.0-34.0 [facility] Comment on above: Performed By: #### L [id number] ####Funeral Director/Embalmer/Owner: SADIE YANG ([phone])[facility])[address] [place] [address] MCHC 33.9 % Normal 30.5-36.0 [facility] Comment on above: Performed By: #### L [id number] ####Funeral Director/Embalmer/Owner: SADIE YANG ([phone])[facility])[address] [place] [address] MCV (RBC) [Entitic vol] 88.2 fL Normal 77.0-99.0 [facility] Comment on above: Performed By: #### L [id number] ####Funeral Director/Embalmer/Owner: SADIE YANG ([phone])[facility] ([facility])[address] [place] [address] Monocytes (Bld) [#/Vol] 0.6 10*3/uL Normal 0.0-0.9 [facility] Comment on above: Performed By: #### L [id number] ####Funeral Director/Embalmer/Owner: SADIE YANG ([phone])[facility] ([facility])[address] [place] [address] Monocytes/100 WBC (Bld) 10.0 % Normal 5.0-13.0 [facility] Comment on above: Performed By: #### L [id number] ####Funeral Director/Embalmer/Owner: SADIE YANG ([phone])[facility] ([facility])[address] [place] [address] NEUTROPHILS ABSOLUTE 3.8 10*3/uL Normal 1.8-7.5 [facility] Comment on above: Performed By: #### L [id number] ####Funeral Director/Embalmer/Owner: SADIE YANG ([phone])[facility] ([facility])[address] [place] [address] Neutrophils/100 WBC (Bld) 61.8 % Normal 38.0-82.0 [facility] Comment on above: Performed By: #### L [id number] ####Funeral Director/Embalmer/Owner: SADIE YANG ([phone])[facility] ([facility])[address] [place] [address] NRBC 0.0 /100 WBCs Normal 0.0-2.0 [facility] Comment on above: Performed By: #### L [id number] ####Funeral Director/Embalmer/Owner: SADIE YANG ([phone])[facility])[address] [place] [address] Platelet mean volume (Bld) [Entitic vol] 11.9 fL Normal 9.0-12.7 [facility] Comment on above: Performed By: #### L [id number] ####Funeral Director/Embalmer/Owner: SADIE YANG ([phone])[facility] ([facility])[address] [place] [address] Platelets (Bld) [#/Vol] 111 10*3/uL Low 140-440 [facility] Comment on above: Performed By: #### L [id number] ####Funeral Director/Embalmer/Owner: SADIE YANG ([phone])[facility] ([facility])[address] [place] [address] RBC (Bld) [#/Vol] 5.18 10*6/uL Normal 3.80-5.20 [facility] Comment on above: Performed By: #### L [id number] ####Funeral Director/Embalmer/Owner: SADIE YANG ([phone])[facility] ([facility])[address] [place] [address] WBC (Bld) [#/Vol] 6.1 10*3/uL Normal 3.6-10.7 [facility] Comment on above: Performed By: #### L [id number] ####Funeral Director/Embalmer/Owner: SADIE YANG ([phone])[facility] ([facility])[address] [place] [address] COMPREHENSIVE METABOLIC PANE Armando 10-04-2024 Albumin [Mass/Vol] 4.4 g/dL Normal 3.5-5.0 [facility] Comment on above: Performed By: #### Herminia MARCUS LAB17 ####Funeral Director/Embalmer/Owner: SADIE YANG ([phone])[facility] ([facility])[address] [place] [address] ALP [Catalytic activity/Vol] 85 U/L Normal 38-126 [facility] Comment on above: Performed By: #### Herminia MARCUS LAB17 ####Funeral Director/Embalmer/Owner: SADIE YANG ([phone])[facility])[address] [place] [address] ALT [Catalytic activity/Vol] 14 U/L Normal 0-34 [facility] Comment on above: Performed By: #### L AB46, LAB17 ####Funeral Director/Embalmer/Owner: SADIE YANG ([phone])[facility] [place] [address] Anion gap [Moles/Vol] 9 mmol/L Normal 3-13 [facility] Comment on above: Performed By: #### L AB46, LAB17 ####Funeral Director/Embalmer/Owner: SADIE YANG ([id number])[facility] ([facility])[address] [place] [address] [place] AST [Catalytic activity/Vol] 17 U/L Normal 15-46 [facility] Comment on above: Performed By: #### L AB46, LAB17 ####Funeral Director/Embalmer/Owner: SADIE YANG ([phone])[facility] ([facility])[address] [place] [address] Bilirubin [Mass/Vol] 0.7 mg/dL Normal 0.2-1.3 [facility] Comment on above: Performed By: #### L AB46, LAB17 ####Funeral Director/Embalmer/Owner: SADIE YANG ([phone])[facility] ([facility])[address] [place] [address] Calcium [Mass/Vol] 9.3 mg/dL Normal 8.4-10.4 [facility] Comment on above: Performed By: #### L AB46, LAB17 ####Funeral Director/Embalmer/Owner: SADIE YANG ([phone])[facility] [place] [address] [place] Chloride [Moles/Vol] 108 mmol/L High 98-107 [facility] Comment on above: Performed By: #### L AB46, LAB17 ####Funeral Director/Embalmer/Owner: SADIE YANG ([phone])[facility] ([facility])[address] [place] [address] [place] CO2 [Moles/Vol] 19 mmol/L Low 22-30 [facility] Comment on above: Performed By: #### L AB46, LAB17 ####Funeral Director/Embalmer/Owner: SADIE YANG ([phone])[facility] ([facility])[address] [place] [address] [place] Creatinine [Mass/Vol] 1.09 mg/dL High 0.52-1.04 [facility] Comment on above: Performed By: #### L AB46, LAB17 ####Funeral Director/Embalmer/Owner: SADIE YANG ([phone])[facility] ([facility])[address] [place] [address] [place] GLOMERULAR FILTRATION RATE ML/MIN/1.73 SQ M.PREDICTED 67.7 mL/min/1.73m*2 Normal >60.0 [facility] Comment on above: Result Comment: Calc ulation based on the Chronic Kidney Disease Epidemiology Collaboration (CKD-EPI) equation refit without adjustment for race Performed By: #### L AB46, LAB17 ####Funeral Director/Embalmer/Owner: SADIE YANG ([phone])[facility] ([facility])[address] [place] [address] Glucose [Mass/Vol] 101 mg/dL High 70-100 [facility] Comment on above: Performed By: #### L AB46, LAB17 ####Funeral Director/Embalmer/Owner: SADIE YANG ([phone])[facility] ([facility])[address] [place] [address] [place] Potassium [Moles/Vol] 4.2 mmol/L Normal 3.5-5.1 [facility] Comment on above: Performed By: #### L AB46, LAB17 ####Funeral Director/Embalmer/Owner: SADIE YANG ([phone])[facility] ([facility])[address] [place] [address] [place] Protein [Mass/Vol] 7.5 g/dL Normal 6.3-8.2 [facility] Comment on above: Performed By: #### L AB46, LAB17 ####Funeral Director/Embalmer/Owner: SADIE YANG ([phone])[facility] ([facility])[address] [place] [address] [place] Sodium [Moles/Vol] 136 mmol/L Normal 135-145 [facility] Comment on above: Performed By: #### L AB46, LAB17 ####Funeral Director/Embalmer/Owner: SADIE YANG ([phone])[facility] ([facility])[address] [place] [address] Urea nitrogen [Mass/Vol] 14 mg/dL Normal 7-17 [facility] Comment on above: Performed By: #### L AB46, LAB17 ####Funeral Director/Embalmer/Owner: SADIE YANG ([phone])[facility] [place] [address] Comprehensive metabolic 1998 panelon 10-04-2024 Albumin [Mass/Vol] 4.4 g/dL 3.5 - 5.0 g/dL [facility] ALP [Catalytic activity/Vol] 85 U/L 38 - 126 U/L [facility] ALT [Catalytic activity/Vol] 14 U/L 0 - 34 U/L [facility] Anion gap [Moles/Vol] 9 mmol/L 3 - 13 mmol/L [facility] AST [Catalytic activity/Vol] 17 U/L 15 - 46 U/L [facility] Bilirubin [Mass/Vol] 0.7 mg/dL 0.2 - 1 .3 mg/dL [facility] Calcium [Mass/Vol] 9.3 mg/dL 8.4 - 10. 4 mg/dL [facility] Chloride [Moles/Vol] 108 mmol/L High 98 - 10 7 mmol/L [facility] CO2 [Moles/Vol] 19 mmol/L Low 22 - 30 mmol/L [facility] Creatinine [Mass/Vol] 1.09 mg/dL High 0.52 - 1.04 mg/dL [facility] GFR/1.73 sq M.predicted (S/P/Bld) [Vol rate/Area] 67.7 mL/min - PINF [facility] Comment on above: Calculation based on the Chronic Kidney Disease Epidemiology Collaboration (CKD-EPI) equation refit without adjustment for race Glucose [Mass/Vol] 101 mg/dL High 70 - 100 mg/dL [facility] Interpretation and review of laboratory results Abnormal [facility] Potassium [Moles/Vol] 4.2 mmol/L 3.5 - 5.1 mmol/L [facility] Protein [Mass/Vol] 7.5 g/dL 6.3 - 8.2 g/dL [facility] Sodium [Moles/Vol] 136 mmol/L 135 - 145 mmol/L [facility] Urea nitrogen [Mass/Vol] 14 mg/dL 7 - 17 mg/d L [facility] DRUGS OF ABUSEon 10-04-2024 AMPHETAMINE SCREEN Negative Normal [facility] Comment on above: Performed By: #### L [id number] ####Funeral Director/Embalmer/Owner: SADIE YANG ([phone])[facility] ([facility])[address] [place] [address] BARBITURATES SCREEN Negative Normal [facility] Comment on above: Performed By: #### L [id number] ####Funeral Director/Embalmer/Owner: SADIE YANG ([phone])[facility] ([facility])[address] [place] [address] BENZODIAZEPINE SCREEN Negative Normal [facility] Comment on above: Performed By: #### L [id number] ####Funeral Director/Embalmer/Owner: SADIE YANG ([phone])[facility] [place] [address] COCAINE METAB. SCREEN Negative Normal [facility] Comment on above: Performed By: #### L [id number] ####Funeral Director/Embalmer/Owner: SADIE YANG ([phone])[facility] [place] [address] METHADONE SCREEN Negative Normal [facility] Comment on above: Performed By: #### L [id number] ####Funeral Director/Embalmer/Owner: SADIE YANG ([phone])[facility] [place] [address] OPIATES SCREEN Negative Normal [facility] Comment on above: Performed By: #### L [id number] ####Funeral Director/Embalmer/Owner: SADIE YANG ([phone])[facility] ([facility])[address] [place] [address] OXYCODONE SCREEN Negative Normal [facility] Comment on above: Performed By: #### L [id number] ####Funeral Director/Embalmer/Owner: SADIE YANG ([phone])[facility] [place] [address] PHENCYCLIDINE SCREEN Negative Normal [facility] Comment on above: Result Comment: LING Gregory COMMENTS: The expected value for all of the [...] confirmation under separate order. Performed By: #### L [id number] ####Funeral Director/Embalmer/Owner: SADIE YANG ([phone])[facility] ([facility])[address] [place] [address] ED Nursing Noteon 10-04-2024 ED Nursing Note Pt was taken to room 46 and ready to be discharged Normal [facility] ED Nursing Note Pt was given the phone. Normal [facility] ED Nursing Note Pt up to the restroom. Normal [facility] ED Nursing Note Psych at bedside. Normal [facility] ED Nursing Note Pt up to the restroom. Normal [facility] ED Nursing Note Pt walked to restroom with no issues Normal [facility] ED Nursing Note PT. WAS CHANGED INTO HOSPITAL GOWN,SKIN ASSESSMENT COMPLETED BY NURSING. PT WANDED AND ALL BELONGINGS INVENTORIED AND LOCKED IN CABINET BY PROTECTIVE SERVICE. Pt has 1 bag. Normal [facility] ED Provider Noteon ED Provider Note Emergency Department Encounter [facility] EMERGENCY DEPT Patient: Mariella Christine : 1990 Date of Evaluation: 10/04/2024 ED Supervising Physician: Ranulfo Elizondo MD I personally saw Mariella Christine and made/approved the management plan and take responsibility for the patient management. In brief, Mariella Christine is a 34 y.o. that presents [...] [employer] Ranulfo Elizondo MD 10/04/24 1237 [facility] ED Provider Note EMERGENCY DEPARTMENT ENCOUNTER Pt Name: Mariella Christine Birthdate 1990 Date of evaluation: 10/04/2024 [...] to new voice in her head names fabien HISTORY OF PRESENT ILLNESS (Location/Symptom, Timing/Onset, Context/Setting, Quality, Duration, Modifying Factors, Severity) Note limiting factors. I wore appropriate PPE for the entirety of this encounter. HPI Mariella Christine is a 34 y.o. with past [...] within 12 hours or as directed by ., Starting Mon02/21/2023, Print paliperidone (Invega) 6 MG [...] Insecurity: Food Insecurity Present (09/12/2024) [facility] Vital Sign Worried About Running Out of [...] oriented to person, place, and time. Mental sta (more content not included)... [facility] ED Provider Note Emergency Department Encounter [facility] EMERGENCY DEPT Patient: Mariella Christine : 1990 Date of Evaluation: 10/04/2024 ED Provider: Walt Mckenna MD TRIAGE NOTE I independently examined and evaluated Mariella Christine. I personally saw & evaluated the [...] details and disposition Brief HPI: In brief, Mariella Christine is a 34 y.o. female that [...] voices and having auditory hallucinations and that Fabien has been speaking to her. No obvious [...] [employer] Walt Mckenna MD 10/04/24 1119 [facility] ED Provider Note I did not participate in the care of this patient. Vanesa White MD Resident 10/04/24 1513 Normal [facility] ETHANOLon 10-04-2024 ETHANOL IN SER/PLAS <0.010 Normal 0.000-0.010 [facility] Comment on above: Result Comment: LING Gregory COMMENTS: NOTE: This result is for medical treatment only. Analysis performed using non-forensic procedures. Performed By: #### L [id number], [id number] ####Funeral Director/Embalmer/Owner: SADIE YANG ([phone])[facility] ([facility])[address] [place] [address] Ethanol (Bld) [Mass/Vol]on 12-04-2023 Ethanol [Mass/Vol] g/dL 0.000 - 0.010 g/dL [facility] Interpretation and review of laboratory results Normal [facility] HCG, RAPID SERUMon HCG, RAPID SCREEN Not detected Normal None Detected [facility] Comment on above: Performed By: #### L [id number] ####Funeral Director/Embalmer/Owner: SADIE YANG ([id number])[facility] ([facility])[address] [place] [address] Laboratory - Drug toxicology on 10-04-2024 Amphetamines Screen method >1000 ng/mL Ql (U) Negative [facility] Barbiturates Screen method >200 ng/mL Ql (U) Negative [facility] Benzodiazepines Ql (U) Negative [facility] Methadone Screen Ql (U) Negative [facility] Opiates Screen Ql (U) Negative [facility] oxyCODONE Ql (U) Negative [facility] Phencyclidine Ql (U) Negative [facility] Laboratory - Microbiology an d Antimicrobial susceptibilityOrdered By: Aubree Guevara on 10-04-2024 SARS-CoV-2 (COVID-19) Ag IA.rapid Ql (Resp) Negative Negative [facility] Comment on above: A negative result do es not rule out the possibility of SARS-CoV-2 infection. NAAT-based methods should be considered for symptomatic patients presenting greater than seven days after onset of symptoms. Method: Lateral flow immunoassay. Fact sheets for healthcare providers and patients can be found at the following sites: https://www.fda.gov/media/937961/download https://www.fda.gov/media/603506/download No Panel Informationon 10-04 COCAINE METAB. SCREEN Negative [email or web address] The expected value for all of the [...] is needed, request confirmation under separate order. [employer] No Panel InformationOrdered By: Nicolle Villanueva on 10-04-2024 HCG, RAPID SCREEN Not detected None Detected [employer] Progress Noteon 10-04-2024 Progress Note ---- Attestation signed by Vanesa Carrillo MD at 10/04/2024 4:31 PM I [...] and resiliency and can continue this at [facility]. She is agreeable to return for worsening symptoms and call [facility] to schedule with their IOP Monday. Vanesa Carrillo MD ---- Department of [facility] [employer] Emergency Psychiatric Evaluation CHIEF COMPLAINT: Chief Complaint Patient presents with Psychiatric Evaluation Pt sent by therapist for crisis evaluation. Pt she she does not want to but is unable to make people around her satisfied. Pt states she has multiple personalities. I am everywhere but nowhere I feel like I'm always losing denies HI. Pt admits to new voice in her head names fabien HISTORY OF PRESENT ILLNESS: The patient is a 34 y.o.female with significant past medical history of MRDD, schizoaffective disorder bipolar type, PTSD, depression, anxiety, multiple personalities who arrived by self transportation with a chief complaint of wanting a psychiatric evaluation. Pt reports that she saw her outpatient therapist through [facility] yesterday and they made her promise that [...] stress she developed a new personality named Fabien. Patient reports that for the past year and a half she has had no multiple personalities. She states that she lost about 300 pounds 1.5 years ago and when she did that all 17 of her extra personalities went away so she was troubled when she developed this new personality named Fabien last week. Patient is adamant that she has no safety concerns. She denies SI and HI and denies paranoia. She does endorse hearing the voices of her new personality named Fabien. 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 I called [facility] to speak with her therapist. Her therapist was unavailable. I spoke with the head banquet waiter/waitress and left a voicemail for her therapist to set her up with [facility] PHP/IOP. REVIEW OF SYSTEMS: Medical Review Of Systems: A comprehensive review of systems was negative. Psychiatric Review Of Systems: Depressed mood:Denies Sleep changes:Denies Appetite changes:Denies Weight changes: endorses weight loss over past 3 years Energy changes:Denies Loss of interest/anhedonia: Denies Somatic symptoms:Denies Libido changes: Anxiety/panic: endorses feeling on edge more since med change about 2 months ago Guilty/hopeless:Den ies Self-injurious/risk y behavior:Denies Suicidal ideation:Denies Homicidal ideation:Denies Access to weapons:Denies Lifetime Psychiatric Review Of Systems: Allen or hypomania:Denies Panic attacks:Denies Phobias:Denies PTSD:Denies Obsessions/compulsi ons:Denies Hallucinations: endorses chronic AH Delusions: history of delusional beliefs PAST PSYCHIATRIC HISTORY: The patient is currently receivi (more content not included)... [facility] SARS-COV-2 ANTIGENon 024 SARS-COV-2 ANTIGEN SARS-COV-2 ANTIGEN -BINAX Reference Negative Negative A negative result does not rule out the possibility of SARS-CoV-2 infection. NAAT-based methods should be considered for symptomatic patients presenting greater than seven days after onset of symptoms. Method: Lateral flow immunoassay. Fact sheets for healthcare providers and patients can be found at the following sites: https://www.fda.gov /media/540121/downl oad https://www.fda.gov /media/280560/downl oad Normal [facility] Comment on above: Performed By: #### L [id number] #### Funeral Director/Embalmer/Owner: SADIE YANG ([phone]) [facility] ([facility]) [address] [place] [address] SARS-CoV-2 (COVID-19) Ag IA. rapid Ql (Resp)Ordered By: Aubree Guevara on 10-04-2024 Interpretation and review of laboratory results Normal [facility] Laboratory - Microbiology an d Antimicrobial susceptibilityOrdered By: Compa Ventura on 08-13-2024 SARS-CoV-2 (COVID-19) RNA YURIDIA+non-probe Ql (Nph) Negative Negative [facility] No Panel InformationOrdered By: Compa Ventura on 08-13-2024 Interpretation and review of laboratory results Normal [facility] Office Visiton 08-13-2024 Follow-up visit [id number] Mariella Christine 1990 F Date Provider Department Center 08/13/2024 GAMALIEL THORNTON [facility] None No family history on file Level of Service:37820 AL OFFICE/OUTPATIENT ESTABLISHED LOW MDM 20 MIN Reason for Visit and Comments: Cough [28] - Barking cough that she's not sure when started. Think it's related to her smoking. Ibuprofen for inflammation. Normal [facility] PATINSon 08-13-2024 PATINS Thank you for coming to [facility] for your medical care! [facility] Progress Noteon 08-13-2024 Progress Note Subjective: Chief Complaint Patient presents with Cough Barking cough that she's not sure when started. Think it's related to her smoking. Ibuprofen for inflammation. Patient: Mariella Christine is a 34 y.o. female Patient presenting to urgent care with a 1 week duration of a barky cough. Patient reports that her cousin has been mentioning to her for the past 1 week that she has a barky cough. She is requesting COVID, flu, and strep testing. Patient states she has a past medical history of dementia, Parkinson disease, and COPD. No PFTs on file for review. Prior chest CTs on file negative for emphysema by radiology read. Patient reports chronic dyspnea and myalgias. She believes her dyspnea is related to smoking tobacco and THC. Reports wheezing on exertion. Negative home COVID testing 2-3 weeks ago. Patient states her joints hurt, and she is contemplating going to the ER for pain control. She does not have a PCP. Requesting Epi pen for bee sting allergy. Review of Systems Constitutional: Negative for fatigue and fever. Respiratory: +shortness of breath (chronic). +cough (barky). Cardiovascular: Negative for chest pain, palpitations and leg swelling. Gastrointestinal: Negative for abdominal pain, blood in stool, constipation and diarrhea. Neurological: Negative for dizziness, light-headedness and headaches. Allergies Allergen Reactions Latex Pcn [Penicillins] Current Outpatient Medications on File Prior to Visit Medication Sig Dispense Refill amantadine (Symmetrel) 100 MG capsule busPIRone (Buspar) 30 MG tablet famotidine (Pepcid) 20 MG tablet Take 1 [...] 1 tablet by mouth daily at bedtime. divalproex (Depakote) 250 MG EC tablet No current facility-administer ed medications on file prior to visit. History reviewed. No pertinent past medical history. 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 Uvula midline. No pharyngeal swelling, oropharyngeal exudate, posterior oropharyngeal erythema or uvula swelling. Tonsils: No tonsillar exudate or tonsillar abscesses. Constitutional: Oriented to person, place, and time. Appears well-developed and well-nourished. No distress. Eyes: EOM are normal. No scleral icterus. Neck: Normal range of motion. Neck supple. Cardiovascular: Normal rate, regular rhythm, normal heart sounds and intact distal pulses. No murmur heard. Pulmonary/Chest: Effort normal and breath sounds normal. No respiratory distress. No wheezes, rales, or rhonchi. Abdominal: Soft. Bowel sounds are normal. Exhibits no distension and no masses. No hepatosplenomegaly. No tenderness. No rebound and no guarding. Musculoskeletal: Normal range of motion. No edema. Lymphadenopathy: No cervical adenopathy. Neurological: Alert and oriented to person, place, and time. No cranial nerve deficits. Gait normal. Skin: Skin is warm and dry. Psychiatric: Normal mood and affect. Speech is normal and behavior is normal. Judgment and thought content normal. Assessment 1. Viral URI with cough 2. Acute cough 3. Chronic dyspnea 4. Muscular aches 5. Diffuse arthralgia 6. Bee sting allergy 7. Does not have primary care provider Plan Diagnoses and all orders for this visit: Viral URI with cough - AMB POC COVID-19 COV - predniSONE (Deltasone) 20 MG tablet; Take 2 tablets (40 mg) by mouth daily for 5 days. - albuterol 108 (90 Base) MCG/ACT inhaler; Inhale 2 puffs every 4 hours as needed for wheezing or shortness of breath. Acute cough - AMB POC COVID-19 COV - predniSONE (Deltasone) 20 MG tablet; Take 2 tablets (40 mg) by mouth daily for 5 days. - albuterol 108 (90 Base) MCG/ACT inhaler; Inhale 2 puffs every 4 hours as needed for wheezing or shortness of breath. Chronic dyspnea - AMB POC COVID-19 COV - predniSONE (Deltasone) 20 MG tablet; Take 2 tablets (40 mg) by mouth daily for 5 days. - albuterol 108 (90 Base) MCG/ACT inhaler; Inhale 2 puffs every 4 hours as needed for wheezing or shortness of breath. - Ambulatory referral to Family Practice; Future Muscular aches - AMB POC COVID-19 COV - predniSONE (Deltasone) 20 MG tablet; Take 2 tablets (40 mg) by mouth daily for 5 days. Diffuse arthralgia - (more content not included)... Normal [facility] BASIC METABOLIC PANELon 08-0 Anion gap [Moles/Vol] 7 mmol/L Normal 3-13 [facility] Comment on above: Performed By: #### Herminia RICHARD, [id number] ####Funeral Director/Embalmer/Owner: SADIE YANG ([phone])[facility] [place] [address] Calcium [Mass/Vol] 9.2 mg/dL Normal 8.4-10.4 [facility] Comment on above: Performed By: #### Herminia RICHARD, [id number] ####Funeral Director/Embalmer/Owner: SADIE YANG ([id number])[facility] [place] [address] Chloride [Moles/Vol] 105 mmol/L Normal 98-107 [facility] Comment on above: Performed By: #### Herminia RICHARD, [id number] ####Funeral Director/Embalmer/Owner: SADIE YANG ([phone])[facility] [place] [address] CO2 [Moles/Vol] 25 mmol/L Normal 22-30 [facility] Comment on above: Performed By: #### Herminia RICHARD, [id number] ####Funeral Director/Embalmer/Owner: SADIE YANG ([phone])[facility] [place] [address] Creatinine [Mass/Vol] 1.17 mg/dL High 0.52-1.04 [facility] Comment on above: Performed By: #### Herminia RICHARD, [id number] ####Funeral Director/Embalmer/Owner: SADIE YANG ([id number])[facility] [place] [address] [place] GLOMERULAR FILTRATION RATE ML/MIN/1.73 SQ M.PREDICTED 62.1 mL/min/1.73m*2 Normal >60.0 [facility] Comment on above: Result Comment: Calc ulation based on the Chronic Kidney Disease Epidemiology Collaboration (CKD-EPI) equation refit without adjustment for race Performed By: #### L ABGaurang, [id number] ####Funeral Director/Embalmer/Owner: SADIE YANG ([phone])[facility] ([facility])[address] [place] [address] Glucose [Mass/Vol] 88 mg/dL Normal 70-100 [facility] Comment on above: Performed By: #### L AB15, [id number] ####Funeral Director/Embalmer/Owner: SADIE YANG ([phone])[facility] ([facility])[address] [place] [address] Potassium [Moles/Vol] 3.7 mmol/L Normal 3.5-5.1 [facility] Comment on above: Performed By: #### L AB15, [id number] ####Funeral Director/Embalmer/Owner: SADIE YANG ([phone])[facility] ([facility])[address] [place] [address] Sodium [Moles/Vol] 136 mmol/L Normal 135-145 [facility] Comment on above: Performed By: #### L AB15, [id number] ####Funeral Director/Embalmer/Owner: SADIE YANG ([id number])[facility] ([facility])[address] [place] [address] Urea nitrogen [Mass/Vol] 15 mg/dL Normal 7-17 [facility] Comment on above: Performed By: #### L AB15, [id number] ####Funeral Director/Embalmer/Owner: SADIE YANG ([phone])[facility])[address] [place] [address] Basic metabolic 1998 panelon 07-02-2024 Anion gap [Moles/Vol] 7 mmol/L 3 - 13 mmol/L [facility] Calcium [Mass/Vol] 9.2 mg/dL 8.4 - 10. 4 mg/dL [facility] Chloride [Moles/Vol] 105 mmol/L 98 - 10 7 mmol/L [facility] CO2 [Moles/Vol] 25 mmol/L 22 - 30 mmol/L [facility] Creatinine [Mass/Vol] 1.17 mg/dL High 0.52 - 1.04 mg/dL [facility] GFR/1.73 sq M.predicted (S/P/Bld) [Vol rate/Area] 62.1 mL/min - PINF [facility] Comment on above: Calculation based on the Chronic Kidney Disease Epidemiology Collaboration (CKD-EPI) equation refit without adjustment for race Glucose [Mass/Vol] 88 mg/dL 70 - 100 mg/dL [facility] Interpretation and review of laboratory results Abnormal [facility] Potassium [Moles/Vol] 3.7 mmol/L 3.5 - 5.1 mmol/L [facility] Sodium [Moles/Vol] 136 mmol/L 135 - 145 mmol/L [facility] Urea nitrogen [Mass/Vol] 15 mg/dL 7 - 17 mg/d L [facility] CBC W Auto Differential pane l (Bld)on 07-02-2024 Basophils (Bld) [#/Vol] 0.1 10*3/uL 0.0 - 0.2 10*3/uL [facility] Basophils/100 WBC (Bld) 0.9 % 0.0 - 2.0 % [facility] Eosinophils (Bld) [#/Vol] 0.1 10*3/uL 0.0 - 0.5 10*3/uL [facility] Eosinophils/100 WBC (Bld) 1.9 % 0.0 - 6.0 % [facility] Erythrocyte distribution width (RBC) [Ratio] 12.0 % 11.5 - 15.0 % [facility] Hematocrit (Bld) [Volume fraction] 46.8 % 35.0 - 47.0 % [facility] Hemoglobin (Bld) [Mass/Vol] 15.9 g/dL 11.7 - 16.0 g/dL [facility] Immature granulocytes (Bld) [#/Vol] 0.0 10*3/uL NINF - 0.1 10*3/uL [facility] Immature granulocytes/100 WBC (Bld) 0.2 % 0.0 - 2.0 % [facility] Interpretation and review of laboratory results Abnormal [facility] IPF 11 [facility] Lymphocytes (Bld) [#/Vol] 1.8 10*3/uL 1.0 - 4.3 10*3/uL [facility] Lymphocytes/100 WBC (Bld) 31.5 % 15.0 - 45.0 % [facility] MCH (RBC) [Entitic mass] 29.9 pg 26. 0 - 34.0 pg [facility] MCHC (RBC) [Mass/Vol] 34.0 % 30.5 - 36.0 % [facility] MCV (RBC) [Entitic vol] 88.0 fL 77.0 - 99.0 fL [facility] Monocytes (Bld) [#/Vol] 0.6 10*3/uL 0.0 - 0.9 10*3/uL [facility] Monocytes/100 WBC (Bld) 10.5 % 5.0 - 13.0 % [facility] Neutrophils (Bld) [#/Vol] 3.1 10*3/uL 1.8 - 7.5 10*3/uL [facility] Neutrophils/100 WBC (Bld) 55.0 % 38.0 - 82.0 % [facility] Nucleated RBC/100 WBC (Bld) [Ratio] 0.0 % [facility] Platelet mean volume (Bld) [Entitic vol] 12.0 fL 9.0 - 12.7 fL [facility] Platelets (Bld) [#/Vol] 113 10*3/uL Low 140 - 440 10*3/uL [facility] RBC (Bld) [#/Vol] 5.32 10*6/uL High 3.80 - 5.2 0 10*6/uL [facility] WBC (Bld) [#/Vol] 5.7 10*3/uL 3.6 - 10.7 10*3/uL [facility] CBC WITH AUTO DIFFERENTIALon 07-02-2024 Basophils (Bld) [#/Vol] 0.1 10*3/uL Normal 0.0-0.2 [facility] Comment on above: Performed By: #### L [id number] ####Funeral Director/Embalmer/Owner: SADIE [phone])[address] Basophils/100 WBC (Bld) 0.9 % Normal 0.0-2.0 [facility] Comment on above: Performed By: #### L [id number] ####Funeral Director/Embalmer/Owner: SADIE [phone])[address] Eosinophils (Bld) [#/Vol] 0.1 10*3/uL Normal 0.0-0.5 [facility] Comment on above: Performed By: #### L [id number] ####Funeral Director/Embalmer/Owner: SADIE [phone])[facility] ([facility])[address] [place] [address] Eosinophils/100 WBC (Bld) 1.9 % Normal 0.0-6.0 [facility] Comment on above: Performed By: #### L [id number] ####Funeral Director/Embalmer/Owner: SADIE YANG ([phone])[facility])[address] [place] [address] Erythrocyte distribution width (RBC) [Ratio] 12.0 % Normal 11.5-15.0 [facility] Comment on above: Performed By: #### L [id number] ####Funeral Director/Embalmer/Owner: SADIE YANG ([phone])[facility])[address] [place] [address] Hematocrit (Bld) [Volume fraction] 46.8 % Normal 35.0-47.0 [facility] Comment on above: Performed By: #### L [id number] ####Funeral Director/Embalmer/Owner: SADIE YANG ([phone])[facility])[address] [place] [address] Hemoglobin (Bld) [Mass/Vol] 15.9 g/dL Normal 11.7-16.0 [facility] Comment on above: Performed By: #### L [id number] ####Funeral Director/Embalmer/Owner: SADIE YANG ([phone])[facility])[address] [place] [address] IMMATURE GRANS % 0.2 % Normal 0.0-2.0 [facility] Comment on above: Performed By: #### L [id number] ####Funeral Director/Embalmer/Owner: SADIE YANG ([phone])[facility])[address] [place] [address] IMMATURE GRANS ABSOLUTE 0.0 10*3/uL Normal <0.1 [facility] Comment on above: Performed By: #### L [id number] ####Funeral Director/Embalmer/Owner: SADIE YANG ([phone])[facility])[address] [place] [address] [place] IPF 11 Normal [facility] Comment on above: Performed By: #### L [id number] ####Funeral Director/Embalmer/Owner: SADIE YANG ([phone])[facility])[address] [place] [address] Lymphocytes (Bld) [#/Vol] 1.8 10*3/uL Normal 1.0-4.3 [facility] Comment on above: Performed By: #### L [id number] ####Funeral Director/Embalmer/Owner: SADIE YANG ([phone])[facility])[address] [place] [address] Lymphocytes/100 WBC (Bld) 31.5 % Normal 15.0-45.0 [facility] Comment on above: Performed By: #### L [id number] ####Funeral Director/Embalmer/Owner: SADIE YANG ([phone])[facility])[address] [place] [address] MCH (RBC) [Entitic mass] 29.9 pg Normal 26.0-34.0 [facility] Comment on above: Performed By: #### L [id number] ####Funeral Director/Embalmer/Owner: SADIE YANG ([phone])[facility])[address] [place] [address] MCHC 34.0 % Normal 30.5-36.0 [facility] Comment on above: Performed By: #### L [id number] ####Funeral Director/Embalmer/Owner: SADIE YANG ([phone])[facility])[address] [place] [address] MCV (RBC) [Entitic vol] 88.0 fL Normal 77.0-99.0 [facility] Comment on above: Performed By: #### L [id number] ####Funeral Director/Embalmer/Owner: SADIE YANG ([phone])[facility])[address] [place] [address] Monocytes (Bld) [#/Vol] 0.6 10*3/uL Normal 0.0-0.9 [facility] Comment on above: Performed By: #### L [id number] ####Funeral Director/Embalmer/Owner: SADIE YANG ([phone])[facility] ([facility])[address] [place] [address] Monocytes/100 WBC (Bld) 10.5 % Normal 5.0-13.0 [facility] Comment on above: Performed By: #### L [id number] ####Funeral Director/Embalmer/Owner: SADEI YANG ([phone])[facility] ([facility])[address] [place] [address] NEUTROPHILS ABSOLUTE 3.1 10*3/uL Normal 1.8-7.5 [facility] Comment on above: Performed By: #### L [id number] ####Funeral Director/Embalmer/Owner: SADIE YANG ([phone])[facility] ([facility])[address] [place] [address] Neutrophils/100 WBC (Bld) 55.0 % Normal 38.0-82.0 [facility] Comment on above: Performed By: #### L [id number] ####Funeral Director/Embalmer/Owner: SADIE YANG ([phone])[facility] ([facility])[address] [place] [address] NRBC 0.0 /100 WBCs Normal 0.0-2.0 [facility] Comment on above: Performed By: #### L [id number] ####Funeral Director/Embalmer/Owner: SADIE YANG ([phone])[facility] ([facility])[address] [place] [address] Platelet mean volume (Bld) [Entitic vol] 12.0 fL Normal 9.0-12.7 [facility] Comment on above: Performed By: #### L [id number] ####Funeral Director/Embalmer/Owner: SADIE YANG ([phone])[facility] ([facility])[address] [place] [address] [place] Platelets (Bld) [#/Vol] 113 10*3/uL Low 140-440 [facility] Comment on above: Performed By: #### L [id number] ####Funeral Director/Embalmer/Owner: SADIE YANG ([phone])[facility] ([facility])[address] [place] [address] [place] RBC (Bld) [#/Vol] 5.32 10*6/uL High 3.80-5.20 [facility] Comment on above: Performed By: #### L [id number] ####Funeral Director/Embalmer/Owner: SADIE YANG ([phone])[facility] ([facility])[address] [place] [address] WBC (Bld) [#/Vol] 5.7 10*3/uL Normal 3.6-10.7 [facility] Comment on above: Performed By: #### L [id number] ####Funeral Director/Embalmer/Owner: SADIE YANG ([phone])[facility] ([facility])[address] [place] [address] ECG 12-LEADon 07-02-2024 ECG 12-LEAD IMPRESSION: Sinus rhythm with normal rate, intervals and QRS duration. No acute ischemic changes. Anterior W waves, old Similar to previous EKG Electronically Signed On 07-02-2024 13:49:11 EDT by Vanesa Saldivar [facility] ED Nursing Noteon 07-02-2024 ED Nursing Note Patient not in the ERP at this time Lashonda Gerber RN 07/02/24 1601 [facility] ED Nursing Note ER Air Pollution Inspector attempting to draw d-dimer but patient not in ERP; RN also attempting to locate patient Lashonda Gerber RN 07/02/24 1600 [facility] ED Nursing Note Pt refused fluids. States I have a DR apt at 3. Pt has received PO meds. Theresa Parkinson LPN 07/02/24 1314 [facility] ED Nursing Note This nurse attempted for IV line x2. Nurse was unsuccessful. Another nurse going to attempt line. Theresa Parkinson LPN 07/02/24 1312 [facility] ED Provider Noteon ED Provider Note Emergency Department Encounter [facility] EMERGENCY DEPT Patient: Mariella Christine : 1990 Date of Evaluation: 07/02/2024 ED Supervising Physician: Vanesa Saldivar, DO I personally evaluated Mariella Christine and made/approved the management plan and take responsibility for the patient management. This will serve as my Supervisory note and shared attestation. I did perform a substantive portion of the visit including all aspects of the Medical Decision Making. I wore appropriate PPE for the entirety of this encounter. In brief, Mariella Christine is a 34 y.o. that presents to the emergency department with chest pain has been intermittent for a month constant for the last 2 weeks. Vomited once during this period of time. Says she had a syncopal episode yesterday. Has a history of DVT in the past. No known history of coronary disease. Focused exam: Vital signs noted please see nurses notes. Well-developed patient sitting in the chair appears well. Normal respiratory pattern without conversational dyspnea or respiratory distress. No obvious musculoskeletal trauma. Moves all extremities equally well. Speech and mental status normal. No gross neurologic deficit. Radial pulses are 2+ and symmetrical. Brief ED course/MDM: HEART score is H0 E0 A0 R1 T0 = 1. Clinical suspicion for PE is low. Cannot exclude PE by PERC criteria. Low risk by Wells criteria. D-dimer has been ordered. Disposition will be dependent upon results of diagnostic studies and reevaluation. Diagnostics interpreted by me: I personally discussed the patient's management with other clinicians: All diagnostic, treatment, and disposition decisions were made by myself in conjunction with the [facility]. For all further details of the patient's emergency department visit, please see their documentation. (Comment: Please note this report has been produced using speech recognition software and may contain errors related to that system including errors in grammar, punctuation, and spelling, as well as words and phrases that may be inappropriate. If there are any questions or concerns please feel free to contact the dictating provider for clarification.) Vanesa Saldivar, DO [employer] Vanesa Saldivar, DO 07/02/24 1207 [facility] ED Provider Note EMERGENCY DEPARTMENT ENCOUNTER Pt Name: Mariella Christine Birthdate 1990 Date of evaluation: 07/02/2024 ED Provider: Silvio Serrano PA-C CHIEF COMPLAINT Chief Complaint Patient presents with Chest Pain Pt comes in stating she was having severe CP and dizziness that began today, that she almost fell down the stairs HISTORY OF PRESENT ILLNESS (Location/Symptom, Timing/Onset, Context/Setting, Quality, Duration, Modifying Factors, Severity) Note limiting factors. I wore appropriate PPE for the entirety of this encounter. HPI Mariella Christine is a 34 y.o. female with a history of asthma, DVT, who presents to the emergency department with chief complaint of chest pain, shortness of breath and dizziness for approximately a month. Patient states chest pain and shortness of breath have been intermittent for the last month and is typically worse when laying down flat and with exertion. Around 2 weeks ago became constant and she has been feeling dizzy for the last 2 weeks as well as worse with positional changes. She states she has passed out multiple times after standing up and then felt like she was going to pass out today as well when she was going down the stairs but did not. Denies any head injury or trauma does not take any blood thinners. She describes the chest pain as tight and in the center of her chest and does not radiate. Does not describe the pain as ripping or tearing sensation. States she does have a history of blood clots in the legs when I do not take care of myself and has had been on blood thinners before in the past. States she does have a history of migraines does get occasional headaches but has not had any for the last several days and no vision change, speech changes or hearing changes or paresthesias or weakness. No recent travel, hospitalizations, or surgeries. Does not take any control or hormone replacement. Does smoke cigarettes no alcohol or drug use. Does have a family history of heart disease. No history of hypertension hyperlipidemia or diabetes. Nursing Notes were reviewed. Limitations to history: None Outside historians: None REVIEW OF SYSTEMS Review of Systems Please see HPI for pertinent positives and negatives. All other systems reviewed and negative PAST MEDICAL HISTORY History reviewed. No pertinent past medical history. SURGICAL HISTORY History reviewed. No pertinent surgical history. CURRENT MEDICATIONS Discharge Medication List as of 07/02/2024 4:51 PM CONTINUE these medications which have NOT CHANGED Details lidocaine (Lidoderm) 5 % patch Apply 1 patch topically daily. Remove & discard patch within 12 hours or as directed by ., Starting Mon02/21/2023, Print ALLERGIES Latex and Pcn [penicillins] FAMILY HISTORY No family history on file. 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 Cooperative. HEENT: Normocephalic. Atraumatic. No maxillofacial tenderness or tenderness of the skull. Sclera anicteric. Pupils equal round reactive to light. Extra movement intact. No nystagmus. Neck Foscue. Tolerates saliva. No trismus. NECK: Supple. Trachea midline. No midline cervical tenderness supple deformities. No JVD. CARDIO: Normal rate and rhythm with no murmurs gallops or rubs. Distal pulses present and equal in all 4 extremities. Chest pain is reproducible to palpation. No unilateral edema or pitting edema. LUNGS: Respirations unlabored. No tachypnea. No conversational dyspnea. CTAB. ABDOMEN: Soft. Non-distended. Non-tender throughout. No pulsatile mass. No guarding or rigidity. No CVA tenderness. MUSCULOSKELETAL: No acute deformities. Full range of motion in all extremities. SKIN: Warm and dry. NEUROLOGICAL: Alert and oriented x 4. NIH is 0. Cranial nerves II through XII are grossly intact. No gross facial drooping. No pronator drift in upper or lower extremity. Finger-nose and crxr-sf-nmtj are normal. No truncal instability. No visual field deficits. No obvious neurologic deficits. Tip Length Checker strength symmetrical. Moves all 4 extremities spontaneously. DIAGNOSTIC RESULTS Procedures/EKG: EKG was reviewed by myself. Physician EKG interpretation can be found in [facility] (Per Emergency Phy (more content not included)... Normal [facility] - Chemistry and C hemistry - challengeon 07-02-2024 Troponin I.cardiac [Mass/Vol] ng/mL NINF - 0.034 ng/mL [facility] No Panel Informationon 07-02 P [place] 31 degrees [facility] AL Interval 138 ms [facility] QRS [place] 43 degrees [facility] QRSD Interval 84 ms [facility] QT Interval 348 ms [facility] QTC Interval 412 ms [facility] T Wave [place] 32 degrees [facility] Sinus rhythm with normal rate, intervals and QRS duration. No acute ischemic changes. Anterior W waves, old Similar to previous EKG Electronically Signed On 07-02-2024 13:49:11 EDT by Vanesa Rene, DO - 07/02/2024 IMPRESSION: Sinus rhythm with normal rate, intervals and QRS duration. No acute ischemic changes. Anterior W waves, old Similar to previous EKG Electronically Signed On 07-02-2024 13:49:11 EDT by Vanesa Saldivar [facility] TROPONIN Ion 07-02-2024 Troponin I.cardiac [Mass/Vol] ng/mL Normal <0.034 [facility] Comment on above: Result Comment: LING Gregory COMMENTS: Patients with high levels of Biotin oral intake (ie >5 mg/day) may have falsely decreased Troponin levels. Performed By: #### L AB15, [id number] ####Funeral Director/Embalmer/Owner: SADIE YANG ([phone])[facility] ([address] Troponin I.cardiac [Mass/Vol ]on 07-02-2024 Interpretation and review of laboratory results Normal [facility] Patients with high levels of Biotin oral intake (ie >5 mg/day) may have falsely decreased Troponin levels. [facility] Vital signson 07-02-2024 Heart rate 84 /min bpm [facility] XR Chest Single viewon 07-02 No acute abnormality Report Dictated on Electronically Signed By: Rodríguez Kaplan MD Electronically Signed Date/Time: 07/02/2024 12:47 PM EDT [facility] Patient Name: [facility]IELLA [facility]RISTINE [facility] 1990 [id number] Exam Date/Time: 07/02/2024 12:48 Procedure: XR CHEST 1 VIEW Ordering Provider: SERRANO BLAKE Reason For Exam: CHEST PAIN PORTABLE CHEST CLINICAL INDICATION: Chest pain TECHNIQUE: Portable AP COMPARISON: CT from 06/22/2024 FINDINGS: The heart and mediastinum are normal. The lungs are clear. Costophrenic angles are sharp. The osseous structures are unremarkable. [facility] Rodríguez Kaplan MD - 07/02/2024 Patient Name: MARIELLA CHRISTINE : 1990 Exam Date/Time: 07/02/2024 12:48 Procedure: XR CHEST 1 VIEW Ordering Provider: SERRANO BLAKE Reason For Exam: CHEST PAIN PORTABLE CHEST CLINICAL INDICATION: Chest pain TECHNIQUE: Portable AP COMPARISON: CT from 06/22/2024 FINDINGS: The heart and mediastinum are normal. The lungs are clear. Costophrenic angles are sharp. The osseous structures are unremarkable. IMPRESSION: No acute abnormality Report Dictated on Electronically Signed By: Rodríguez Kaplan MD Electronically Signed Date/Time: 07/02/2024 12:47 PM EDT [facility] Radiology Study observation (narrative) [facility] XR Chest Single viewOrdered By: Rodríguez Kaplan on 07-02-2024 [facility] Work Phone: BASIC METABOLIC PANELon 05-28 Anion gap [Moles/Vol] 9 mmol/L Normal 3-13 [facility] Comment on above: Performed By: #### L [id number], [id number], [id number], LAB15 ####Funeral Director/Embalmer/Owner: SADIE YANG ([phone])[facility] ([facility])[address] [place] [address] Calcium [Mass/Vol] 9.4 mg/dL Normal 8.4-10.4 [facility] Comment on above: Performed By: #### L AB106, [id number], [id number], LAB15 ####Funeral Director/Embalmer/Owner: SADIE YANG ([phone])[facility] ([facility])[address] [place] [address] Chloride [Moles/Vol] 106 mmol/L Normal 98-107 [facility] Comment on above: Performed By: #### L AB106, [id number], [id number], LAB15 ####Funeral Director/Embalmer/Owner: SADIE YANG ([phone])[facility])[address] [place] [address] CO2 [Moles/Vol] 21 mmol/L Low 22-30 [facility] Comment on above: Performed By: #### L AB106, [id number], [id number], LAB15 ####Funeral Director/Embalmer/Owner: SADIE YANG ([phone])[facility])[address] [place] [address] Creatinine [Mass/Vol] 1.10 mg/dL High 0.52-1.04 [facility] Comment on above: Performed By: #### L AB106, [id number], [id number], LAB15 ####Funeral Director/Embalmer/Owner: SADIE YANG ([phone])[facility])[address] [place] [address] GLOMERULAR FILTRATION RATE ML/MIN/1.73 SQ M.PREDICTED 66.9 mL/min/1.73m*2 Normal >60.0 [facility] Comment on above: Result Comment: Calc ulation based on the Chronic Kidney Disease Epidemiology Collaboration (CKD-EPI) equation refit without adjustment for race Performed By: #### L AB106, [id number], [id number], LAB15 ####Funeral Director/Embalmer/Owner: SADIE YANG ([phone])[facility])[address] [place] [address] Glucose [Mass/Vol] 92 mg/dL Normal 70-100 [facility] Comment on above: Performed By: #### L AB106, [id number], [id number], LAB15 ####Funeral Director/Embalmer/Owner: SADIE YANG ([phone])[facility])[address] [place] [address] Potassium [Moles/Vol] 4.1 mmol/L Normal 3.5-5.1 [facility] Comment on above: Performed By: #### L AB106, [id number], [id number], LAB15 ####Funeral Director/Embalmer/Owner: SADIE [id number])[facility] ([facility])[address] [place] [address] Sodium [Moles/Vol] 137 mmol/L Normal 135-145 [facility] Comment on above: Performed By: #### L AB106, [id number], [id number], LAB15 ####Funeral Director/Embalmer/Owner: SADIE YANG ([phone])[facility] ([facility])[address] [place] [address] Urea nitrogen [Mass/Vol] 13 mg/dL Normal 7-17 [facility] Comment on above: Performed By: #### L AB106, [id number], [id number], LAB15 ####Funeral Director/Embalmer/Owner: SADIE YANG ([phone])[facility] ([facility])[address] [place] [address] Basic metabolic 1998 panelon 06-22-2024 Anion gap [Moles/Vol] 9 mmol/L 3 - 13 mmol/L [facility] Calcium [Mass/Vol] 9.4 mg/dL 8.4 - 10. 4 mg/dL [facility] Chloride [Moles/Vol] 106 mmol/L 98 - 10 7 mmol/L [facility] CO2 [Moles/Vol] 21 mmol/L Low 22 - 30 mmol/L [facility] Creatinine [Mass/Vol] 1.10 mg/dL High 0.52 - 1.04 mg/dL [facility] GFR/1.73 sq M.predicted MDRD (S/P/Bld) [Vol rate/Area] 66.9 mL/min/{1.73_m2} - PINF [facility] Comment on above: Calculation based on the Chronic Kidney Disease Epidemiology Collaboration (CKD-EPI) equation refit without adjustment for race Glucose [Mass/Vol] 92 mg/dL 70 - 100 mg/dL [facility] Interpretation and review of laboratory results Abnormal [facility] Potassium [Moles/Vol] 4.1 mmol/L 3.5 - 5.1 mmol/L [facility] Sodium [Moles/Vol] 137 mmol/L 135 - 145 mmol/L [facility] Urea nitrogen [Mass/Vol] 13 mg/dL 7 - 17 mg/d L [facility] CBC W Auto Differential pane l (Bld)on 06-22-2024 Basophils (Bld) [#/Vol] 0.0 10*3/uL 0.0 - 0.2 10*3/uL [facility] Basophils/100 WBC (Bld) 0.6 % 0.0 - 2.0 % [facility] Eosinophils (Bld) [#/Vol] 0.2 10*3/uL 0.0 - 0.5 10*3/uL [facility] Eosinophils/100 WBC (Bld) 2.6 % 0.0 - 6.0 % [facility] Erythrocyte distribution width (RBC) [Ratio] 12.2 % 11.5 - 15.0 % [facility] Hematocrit (Bld) [Volume fraction] 44.5 % 35.0 - 47.0 % [facility] Hemoglobin (Bld) [Mass/Vol] 14.9 g/dL 11.7 - 16.0 g/dL [facility] Immature granulocytes (Bld) [#/Vol] 0.0 10*3/uL NINF - 0.1 10*3/uL [facility] Immature granulocytes/100 WBC (Bld) 0.1 % 0.0 - 2.0 % [facility] Interpretation and review of laboratory results Abnormal [facility] Lymphocytes (Bld) [#/Vol] 2.0 10*3/uL 1.0 - 4.3 10*3/uL [facility] Lymphocytes/100 WBC (Bld) 29.0 % 15.0 - 45.0 % [facility] MCH (RBC) [Entitic mass] 29.6 pg 26. 0 - 34.0 pg [facility] MCHC (RBC) [Mass/Vol] 33.5 % 30.5 - 36.0 % [facility] MCV (RBC) [Entitic vol] 88.3 fL 77.0 - 99.0 fL [facility] Monocytes (Bld) [#/Vol] 0.6 10*3/uL 0.0 - 0.9 10*3/uL [facility] Monocytes/100 WBC (Bld) 9.0 % 5.0 - 13.0 % [facility] Neutrophils (Bld) [#/Vol] 4.1 10*3/uL 1.8 - 7.5 10*3/uL [facility] Neutrophils/100 WBC (Bld) 58.7 % 38.0 - 82.0 % [facility] Nucleated RBC/100 WBC (Bld) [Ratio] 0.0 % [facility] Platelet mean volume (Bld) [Entitic vol] 12.3 fL 9.0 - 12.7 fL [facility] Platelets (Bld) [#/Vol] 123 10*3/uL Low 140 - 440 10*3/uL [facility] RBC (Bld) [#/Vol] 5.04 10*6/uL 3.80 - 5.2 0 10*6/uL [facility] WBC (Bld) [#/Vol] 7.0 10*3/uL 3.6 - 10.7 10*3/uL [facility] CBC WITH AUTO DIFFERENTIALon 06-22-2024 Basophils (Bld) [#/Vol] 0.0 10*3/uL Normal 0.0-0.2 [facility] Comment on above: Performed By: #### L [id number] ####Funeral Director/Embalmer/Owner: SADIE YANG ([phone])[facility])[address] [place] [address] Basophils/100 WBC (Bld) 0.6 % Normal 0.0-2.0 [facility] Comment on above: Performed By: #### L [id number] ####Funeral Director/Embalmer/Owner: SADIE YANG ([phone])[facility])[address] [place] [address] Eosinophils (Bld) [#/Vol] 0.2 10*3/uL Normal 0.0-0.5 [facility] Comment on above: Performed By: #### L [id number] ####Funeral Director/Embalmer/Owner: SADIE YANG ([phone])[facility])[address] [place] [address] Eosinophils/100 WBC (Bld) 2.6 % Normal 0.0-6.0 [facility] Comment on above: Performed By: #### L [id number] ####Funeral Director/Embalmer/Owner: SADIE YANG ([phone])[facility])[address] [place] [address] Erythrocyte distribution width (RBC) [Ratio] 12.2 % Normal 11.5-15.0 [facility] Comment on above: Performed By: #### L [id number] ####Funeral Director/Embalmer/Owner: SADIE YANG ([phone])[facility])[address] [place] [address] Hematocrit (Bld) [Volume fraction] 44.5 % Normal 35.0-47.0 [facility] Comment on above: Performed By: #### L [id number] ####Funeral Director/Embalmer/Owner: SADIE YAGN ([phone])[facility])[address] [place] [address] Hemoglobin (Bld) [Mass/Vol] 14.9 g/dL Normal 11.7-16.0 [facility] Comment on above: Performed By: #### L [id number] ####Funeral Director/Embalmer/Owner: SADIE YANG ([phone])[facility])[address] [place] [address] IMMATURE GRANS % 0.1 % Normal 0.0-2.0 [facility] Comment on above: Performed By: #### L [id number] ####Funeral Director/Embalmer/Owner: SADIE YANG ([phone])[facility])[address] [place] [address] IMMATURE GRANS ABSOLUTE 0.0 10*3/uL Normal <0.1 [facility] Comment on above: Performed By: #### L [id number] ####Funeral Director/Embalmer/Owner: SADIE YANG ([phone])[facility])[address] [place] [address] Lymphocytes (Bld) [#/Vol] 2.0 10*3/uL Normal 1.0-4.3 [facility] Comment on above: Performed By: #### L [id number] ####Funeral Director/Embalmer/Owner: SADIE YANG ([phone])[address] Lymphocytes/100 WBC (Bld) 29.0 % Normal 15.0-45.0 [facility] Comment on above: Performed By: #### L [id number] ####Funeral Director/Embalmer/Owner: SADIE YANG ([phone])[facility] ([facility])[address] [place] [address] MCH (RBC) [Entitic mass] 29.6 pg Normal 26.0-34.0 [facility] Comment on above: Performed By: #### L [id number] ####Funeral Director/Embalmer/Owner: SADIE YANG ([phone])[facility])[address] [place] [address] MCHC 33.5 % Normal 30.5-36.0 [facility] Comment on above: Performed By: #### L [id number] ####Funeral Director/Embalmer/Owner: SADIE YANG ([phone])[facility])[address] [place] [address] MCV (RBC) [Entitic vol] 88.3 fL Normal 77.0-99.0 [facility] Comment on above: Performed By: #### L [id number] ####Funeral Director/Embalmer/Owner: SADIE YANG ([phone])[facility] ([facility])[address] [place] [address] Monocytes (Bld) [#/Vol] 0.6 10*3/uL Normal 0.0-0.9 [facility] Comment on above: Performed By: #### L [id number] ####Funeral Director/Embalmer/Owner: SADIE YANG ([phone])[facility] ([facility])[address] [place] [address] Monocytes/100 WBC (Bld) 9.0 % Normal 5.0-13.0 [facility] Comment on above: Performed By: #### L [id number] ####Funeral Director/Embalmer/Owner: SADIE YANG ([phone])[facility])[address] [place] [address] NEUTROPHILS ABSOLUTE 4.1 10*3/uL Normal 1.8-7.5 [facility] Comment on above: Performed By: #### L [id number] ####Funeral Director/Embalmer/Owner: SADIE YANG ([phone])[facility])[address] [place] [address] Neutrophils/100 WBC (Bld) 58.7 % Normal 38.0-82.0 [facility] Comment on above: Performed By: #### L [id number] ####Funeral Director/Embalmer/Owner: SADIE YANG ([phone])[facility] ([facility])[address] [place] [address] NRBC 0.0 /100 WBCs Normal 0.0-2.0 [facility] Comment on above: Performed By: #### L [id number] ####Funeral Director/Embalmer/Owner: SADIE YANG ([phone])[facility] ([facility])[address] [place] [address] Platelet mean volume (Bld) [Entitic vol] 12.3 fL Normal 9.0-12.7 [facility] Comment on above: Performed By: #### L [id number] ####Funeral Director/Embalmer/Owner: SADIE YANG ([phone])[facility] ([facility])[address] [place] [address] Platelets (Bld) [#/Vol] 123 10*3/uL Low 140-440 [facility] Comment on above: Performed By: #### L [id number] ####Funeral Director/Embalmer/Owner: SADIE YANG ([phone])[facility] ([facility])[address] [place] [address] RBC (Bld) [#/Vol] 5.04 10*6/uL Normal 3.80-5.20 [facility] Comment on above: Performed By: #### L [id number] ####Funeral Director/Embalmer/Owner: SADIE YANG ([phone])[facility] ([facility])[address] [place] [address] WBC (Bld) [#/Vol] 7.0 10*3/uL Normal 3.6-10.7 [facility] Comment on above: Performed By: #### L [id number] ####Funeral Director/Embalmer/Owner: SADIE YANG ([phone])[facility] ([facility])[address] [place] [address] CT CHEST ANGIOGRAM W AND/OR WO IV CONTRASTon 06-22-2024 CT CHEST ANGIOGRAM W AND/OR WO IV CONTRAST Patient Name: MARIELLA CHRISTINE : 1990 [facility]#: [id number] Exam Date/Time: 06/22/2024 18:34 Procedure: CT CHEST ANGIOGRAM W AND/OR WO IV CONTRAST Ordering Provider: SILVESTRE DOUGLAS Reason For Exam: CP, SOB, coughing up blood. h/o PE. PNA? PE? Examination: CTA chest Clinical Indication: Chest pain Comparison: None Findings: Serial axial [address] images were obtained through the chest after a 75 mL Isovue-370 bolus tracked intravenous contrast bolus secondary to the chest CTA P.E. protocol. Dose reduction was employed with automated exposure control. Three-dimensional images were reconstructed by the interpreting radiologist and reviewed. Exam quality: Good contrast enhancement of the vasculature. Pulmonary Arteries: No filling defects identified throughout the main pulmonary arteries along with the lobar, segmental and visualized subsegmental branches. Aorta: No aortic dissection identified. Lungs: No opacification or consolidation. No significant atelectasis. No parenchymal or pleural-based mass. Pleural fluid: None. Heart/Great vessels: Retroesophageal right subclavian artery, a normal variant. Otherwise unremarkable heart and great vessels. Mediastinum/Rowena: No mediastinal or hilar mass. Soft tissues chest wall/Neck base: No abnormality identified. Upper abdomen: No acute process in the upper abdomen. Osseous structures: Normal osseous structures. IMPRESSION: Impression: No evidence of pulmonary embolus or other acute finding of the chest. Report Dictated on Electronically Signed By: Tera Blackmon MD Electronically Signed Date/Time: 06/22/2024 6:39 PM EDT CHIEF COMPLAINTS Chest Pain CTA CHEST ANGIOGRAM W AND/OR WO IV CONTRAST CP, SOB, coughing up blood. h/o PE. PNA? PE? Normal [facility] CTA Chest vessels WO and W c ontrast [place] 06-22-2024 Impression: No evidence of pulmonary embolus or other acute finding of the chest. Report Dictated on Electronically Signed By: Tera Blackmon MD Electronically Signed Date/Time: 06/22/2024 6:39 PM EDT [facility] Patient Name: [facility]IELLA [facility]RISTINE [facility] 1990 [id number] Exam Date/Time: 06/22/2024 18:34 Procedure: CT CHEST ANGIOGRAM W AND/OR WO IV CONTRAST Ordering Provider: SILVESTRE DOUGLAS Reason For Exam: CP, SOB, coughing up blood. h/o PE. PNA? PE? Examination: CTA chest Clinical Indication: Chest pain Comparison: None Findings: Serial axial [address] images were obtained through the chest after a 75 mL Isovue-370 bolus tracked intravenous contrast bolus secondary to the chest CTA P.E. protocol. Dose reduction was employed with automated exposure control. Three-dimensional images were reconstructed by the interpreting radiologist and reviewed. Exam quality: Good contrast enhancement of the vasculature. Pulmonary Arteries: No filling defects identified throughout the main pulmonary arteries along with the lobar, segmental and visualized subsegmental branches. Aorta: No aortic dissection identified. Lungs: No opacification or consolidation. No significant atelectasis. No parenchymal or pleural-based mass. Pleural fluid: None. Heart/Great vessels: Retroesophageal right subclavian artery, a normal variant. Otherwise unremarkable heart and great vessels. Mediastinum/Rowena: No mediastinal or hilar mass. Soft tissues chest wall/Neck base: No abnormality identified. Upper abdomen: No acute process in the upper abdomen. Osseous structures: Normal osseous structures. [facility] Tera Blackmon MD - 06/22/2024 Patient Name: MARIELLA CHRISTINE : 1990 [id number] Exam Date/Time: 06/22/2024 18:34 Procedure: CT CHEST ANGIOGRAM W AND/OR WO IV CONTRAST Ordering Provider: SILVESTRE, JOSE CRUZ Reason For Exam: CP, SOB, coughing up blood. h/o PE. PNA? PE? Examination: CTA chest Clinical Indication: Chest pain Comparison: None Findings: Serial axial [address] images were obtained through the chest after a 75 mL Isovue-370 bolus tracked intravenous contrast bolus secondary to the chest CTA P.E. protocol. Dose reduction was employed with automated exposure control. Three-dimensional images were reconstructed by the interpreting radiologist and reviewed. Exam quality: Good contrast enhancement of the vasculature. Pulmonary Arteries: No filling defects identified throughout the main pulmonary arteries along with the lobar, segmental and visualized subsegmental branches. Aorta: No aortic dissection identified. Lungs: No opacification or consolidation. No significant atelectasis. No parenchymal or pleural-based mass. Pleural fluid: None. Heart/Great vessels: Retroesophageal right subclavian artery, a normal variant. Otherwise unremarkable heart and great vessels. Mediastinum/Rowena: No mediastinal or hilar mass. Soft tissues chest wall/Neck base: No abnormality identified. Upper abdomen: No acute process in the upper abdomen. Osseous structures: Normal osseous structures. IMPRESSION: Impression: No evidence of pulmonary embolus or other acute finding of the chest. Report Dictated on Electronically Signed By: Tera Blackmon MD Electronically Signed Date/Time: 06/22/2024 6:39 PM EDT [facility] Radiology Study observation (narrative) [facility] CTA Chest vessels WO and W c ontrast IVOrdered By: Tera Blackmon on 06-22-2024 [facility] Work Phone: ECG 12-LEADon 06-22-2024 ECG 12-LEAD IMPRESSION: Sinus rhythm with normal rate, intervals and QRS duration. No acute ischemic changes. Electronically Signed On 06-22-2024 20:18:53 EDT by Vanesa Sladivar [facility] ED Nursing Noteon 06-22-2024 ED Nursing Note IV removed from left forearm. Shelly Bennett MA 06/22/242001 Shelly Bennett MA 06/22/242002 [facility] ED Nursing Note Dr. Silvestre notified that patient is leaving. Kylie Moore RN 06/22/242001 [facility] ED Nursing Note Patient came to RN at window and said she would like to leave since she got all her results in her mychart. Kylie Moore RN 06/22/242000 [facility] ED Provider Noteon ED Provider Note Emergency Department Encounter [facility] EMERGENCY DEPT Patient: Mariella Christine : 1990 Date of Evaluation: 06/22/2024 ED Provider: Jose Cruz Silvestre MD I saw the patient as the Clinician in Triage and performed a brief history and physical exam, established acuity, and ordered appropriate tests to develop basic plan of care. Patient will be seen by XAVIER, resident and/or my physician partner who will evaluate the patient. I wore appropriate PPE for the entirety of this encounter. Brief HPI: In brief, Mariella Christine is a 34 y.o. that presents with chief complaint of chest pain shortness of breath Chest pain is pleuritic in nature, patient hurts when she goes from [employer]reira[employer] to sitting upright, hurts to take a deep breath, hurts to rotate [id number], hurts to cough. Has a cough and wheezing for the last several days. Cough is productive of red sputum which might be blood. Was short of breath for about 20 minutes prior to arrival and has had decreased exercise tolerance over the last several days, gradually worsening i.e. crescendo symptoms. This brought the patient to the emergency department. Has had chest pain for the last 3 days, this is unchanged. There is a family history of heart disease but no personal history of heart disease. Patient is a morbidly obese smoker. She has a history of asthma for which she uses albuterol, she also has a history of pulmonary embolism/PE. She is not sure if she has a history of COPD or not, she says her doctor was suspicious she had COPD but she has never officially been diagnosed with COPD. Afebrile. Not hypoxic. Focused Physical exam: General: Morbidly obese chronically ill adult in mild respiratory distress. Non-toxic appearing HENT: Head NCAT, EOMI with no erythema, swelling or discharge. Oropharyngeal mucus membranes moist, pink, no exudate Neck: Full ROM, supple, no rigidity Cardio: RRR, nl s1 s2 no m/r/g, extremities warm, dry, well perfused, non-edematous, 2+ bilateral radial pulses, 2+ bilateral DP pulses Lungs: CTAB, no wheezes, rales, rhonchi, normal work of breathing Abdomen: Soft, NT, ND, non-rigid, BS x 4 normal Skin: Warm, dry, pink, no rashes, bruising, or lacerations, no petechiae, no purpura Neuro: Patient alert, oriented, able to answer questions and follow commands fur comber II-XII normal Normal 5/5 strength and normal sensation in all four extremities DTRs are normal 2/4 and equal bilaterally Normal coordination in upper and lower extremities Gait not tested, patient is seated in wheelchair at this time Normal speech No facial droop No pronator drift Negative test of skew bilaterally NIHSS = 0 Psych: Nervous and anxious. Verbally consolable and redirectable. Not responding to internal stimuli, not psychotic Plan/MDM: 34-year-old female presents for chest pain shortness of breath coughing up blood Concern for bronchitis, pneumonia, recurrent pulmonary embolism, asthma exacerbation or undiagnosed COPD or combination the above. Will test for COVID-19 RSV influenza, steroids nebulizer CTA chest EKG Patients symptoms are consistent with sepsis, severe sepsis, or septic shock (If yes use .sepsiscoremeasure ): No Please see subsequent provider note for further details and disposition (Comment: Please note this report has been produced using speech recognition software and may contain errors related to that system including errors in grammar, punctuation, and spelling as well as words and phrases that may be inappropriate. If there are any questions or concerns please feel free to contact the dictating provider for clarification) Jose Cruz Silvestre MD [employer] Jose Cruz Silvestre MD 06/22/24 1432 Normal [facility] HCG QUANTITATIVE BLOODon HCG QUANTITATIVE <2 Normal Females <=5 [facility] Comment on above: Result Comment: LING Gregory COMMENTS: Values in should double every 2 to 3 days for the first 6 weeks. Elevated concentrations of human chorionic gonadotropin (hCG) measured in the first trimester of are observed in normal , but may serve as an indication of chorionic carcinoma, hydatiform mole, or multiple . Decreasing hCG concentrations indicate threatened or missed , recent termination of , ectopic , gestosis or intrauterine . Fadia- and postmenopausal females may have detectable hCG concentrations (< or = to 14 mIU/mL) due to pituitary production of hCG. Serum follicle-stimulating hormone measurement may aid in ruling-out in this population. Cutoffs of greater than 20 to 45 mIU/mL have been suggested and are method dependent. False-elevations (called phantom human chorionic gonadotropin: hCG) may occur with patients who have human antianimal or heterophilic antibodies. Some specimens may not dilute linearly due to abnormal forms of hCG. Elevated hCG concentrations not associated with are found in patients with other diseases such as tumors of the germ cells, ovaries, bladder, pancreas, stomach, lungs, and liver. This test is not intended to detect or monitor tumors or gestational trophoblastic disease. Performed By: #### L [id number], [id number], [id number], LAB15 ####Funeral Director/Embalmer/Owner: SADIE YANG ([phone])[facility] [place] [address] Laboratory - Chemistry and C hemistry - challengeon 06-22-2024 HCG.beta subunit Qn Females <=5 mIU/mL [facility] Troponin I.cardiac [Mass/Vol] ng/mL NINF - 0.034 ng/mL [facility] Laboratory - Microbiology an d Antimicrobial susceptibilityon 06-22-2024 FLUAV RNA YURIDIA+probe Ql (Resp) Not detected Not Detected [facility] FLUBV RNA YURIDIA+probe Ql (Resp) Not detected Not Detected [facility] RSV RNA YURIDIA+probe Ql (Resp) Not detected Not Detected [facility] SARS-CoV-2 (COVID-19) RNA YURIDIA+probe Ql (Resp) Not detected Not Detected [facility] alth NT PRO BNPon 06-22-2024 Natriuretic peptide B (Bld) [Mass/Vol] 141 pg/mL High <125 [facility] Comment on above: Performed By: #### L [id number], [id number], [id number], LAB15 ####Funeral Director/Embalmer/Owner: SADIE YANG ([phone])[facility] [place] [address] Natriuretic peptide B [Mass/ Vol]Ordered By: Moira Barkley on 06-22-2024 Interpretation and review of laboratory results Abnormal [facility] Natriuretic peptide B (Bld) [Mass/Vol] 141 pg/mL High NINF - 125 pg/mL [facility] No Panel InformationOrdered By: Vanesa Saldivar on 06-22-2024 P [place] 11 degrees [facility] [employer] Work Phone: AL Interval 139 ms [facility] [employer] Work Phone: QRS [place] 41 degrees [facility] [employer] Work Phone: QRSD Interval 87 ms [facility] Work Phone: QT Interval 344 ms [employer] Work Phone: QTC Interval 420 ms [employer] Work Phone: T Wave [place] 30 degrees [employer] Work Phone: [employer] Work Phone: No Panel Informationon 06-22 Sinus rhythm with normal rate, intervals and QRS duration. No acute ischemic changes. Electronically Signed On 06-22-2024 20:18:53 EDT by Vanesa Rene, DO - 06/22/2024 IMPRESSION: Sinus rhythm with normal rate, intervals and QRS duration. No acute ischemic changes. Electronically Signed On 06-22-2024 20:18:53 EDT by [facility]anesa [facility]divar [facility] Values in should double every 2 to 3 days for the first 6 weeks. Elevated concentrations of human chorionic gonadotropin (hCG) measured in the first trimester of are observed in normal , but may serve as an indication of chorionic carcinoma, hydatiform mole, or multiple . Decreasing hCG concentrations indicate threatened or missed , recent termination of , ectopic , gestosis or intrauterine . Fadia- and postmenopausal females may have detectable hCG concentrations (< or = to 14 mIU/mL) due to pituitary production of hCG. Serum follicle-stimulatin g hormone measurement may aid in ruling-out in this population. Cutoffs of greater than 20 to 45 mIU/mL have been suggested and are method dependent. False-elevations (called phantom human chorionic gonadotropin: hCG) may occur with patients who have human antianimal or heterophilic antibodies. Some specimens may not dilute linearly due to abnormal forms of hCG. Elevated hCG concentrations not associated with are found in patients with other diseases such as tumors of the germ cells, ovaries, bladder, pancreas, stomach, lungs, and liver. This test is not intended to detect or monitor tumors or gestational trophoblastic disease. [facility] [employer] SARS-COV-2, FLU A/B, AND RSV COMBOon 06-22-2024 SARS-CoV-2 (COVID-19) RNA YURIDIA+probe Ql (Unsp spec) SARS-COV-2 Reference Not Detected Not Detected RESPIRATORY SYNCYTIAL VIRUS Reference Not Detected Not Detected INFLUENZA A (CEPHEID) Reference Not Detected Not Detected INFLUENZA B (CEPHEID) Reference Not Detected Not Detected ORDER COMMENTS: Methodology: real-time, RT-PCR Normal [facility] Comment on above: Performed By: #### L [id number] #### Funeral Director/Embalmer/Owner: SADIE YANG ([phone]) [facility] ([facility]) [address] [place] [address] SARS-CoV-2, Flu A/B, and RSV Comboon 06-22-2024 Interpretation and review of laboratory results Normal [facility] Methodology: real-time, RT-PCR [facility] TROPONIN, WITH SERIAL REFLEX on 06-22-2024 Troponin I.cardiac [Mass/Vol] ng/mL Normal <0.034 [facility] Comment on above: Result Comment: LING Gregory COMMENTS: Patients with high levels of Biotin oral intake (ie >5 mg/day) may have falsely decreased Troponin levels. Performed By: #### L AB106, [id number], [id number], LAB15 ####Funeral Director/Embalmer/Owner: SADIE YANG ([phone])[facility] ([facility])[address] [place] [address] [place] Troponin I.cardiac [Mass/Vol ]on 06-22-2024 Interpretation and review of laboratory results Normal [facility] Patients with high levels of Biotin oral intake (ie >5 mg/day) may have falsely decreased Troponin levels. [facility] Vital signsOrdered By: Betito Saldivar on 06-22-2024 Heart rate 89 /min bpm [facility] Work Phone: APAP SerPl-mCncon 06-09-2024 Acetaminophen [Mass/Vol] ug/mL Low 10-30 [facility] Comment on above: Order Comment: Speci men Type: BLOOD SPECIMEN Ordering Facility: [facility] Address: [address] [place] [address] Result Comment: Toxi c > 150 ug/mL 4 hours post ingestion The Billy Arenas nomogram can be used to estimate the probability of hepatotoxicity via the relationship of plasma acetaminophen concentration to the post ingestion interval. (Inocencio. Pediatrics. 1975. 55:871 to 876 and Billy et al. Arch Pmp Project Manager Med. 1981. 141:380 to 385). Reference ranges and high/low indicator flags are provided as general guidelines only. The treating physician must determine appropriate target levels/dosing based on the specific clinical situation. Performed By: #### 5 643-2, 3298-7, 4024-6 #### [facility] CLIA [id number] [address] CBC W Auto Differential pane l (Bld)on 06-09-2024 Basophils (Bld) [#/Vol] 0.04 10*3/uL Normal <0.11 [facility] Comment on above: Order Comment: Speci men Type: BLOOD SPECIMEN Ordering Facility: [facility] Address: [address] [place] [address] Performed By: #### 5 7021-8 #### [facility] CLIA [id number] [address] STATES OF [facility] Basophils/100 WBC (Bld) 0.6 % Normal [facility] Comment on above: Order Comment: Speci men Type: BLOOD SPECIMEN Ordering Facility: [facility] Address: [address] [place] [address] Performed By: #### 5 7021-8 #### [facility] CLIA [id number] [address] Differential cell count method Nom (Bld) Auto Normal [facility] Comment on above: Order Comment: Speci men Type: BLOOD SPECIMEN [facility] [facility] Address: [address] [place] [address] Performed By: #### 5 7021-8 #### [facility] CLIA [id number] [address] [place] [address] [place] Eosinophils (Bld) [#/Vol] 0.15 10*3/uL Normal <0.46 [facility] Comment on above: Order Comment: Speci men Type: BLOOD SPECIMEN Ordering Facility: [facility] Address: [address] [place] [address] Performed By: #### 5 7021-8 #### [facility] CLIA [id number] [address] [place] Eosinophils/100 WBC (Bld) 2.1 % Normal [facility] Comment on above: Order Comment: Speci men Type: BLOOD SPECIMEN Ordering Facility: [facility] Address: [address] [place] [address] Performed By: #### 5 7021-8 #### [facility] CLIA [id number] [address] Erythrocyte distribution width (RBC) [Ratio] 12.3 % Normal 11.5-15.0 [facility] Comment on above: Order Comment: Speci men Type: BLOOD SPECIMEN Ordering Facility: [facility] Address: [address] [place] [address] Performed By: #### 5 7021-8 #### [facility] CLIA [id number] [address] [place] Hematocrit (Bld) [Volume fraction] 46.4 % High 36.0-46.0 [facility] Comment on above: Order Comment: Speci men Type: BLOOD SPECIMEN Ordering Facility: [facility] Address: [address] [place] [address] Performed By: #### 5 7021-8 #### [facility] CLIA [id number] [address] [place] Hemoglobin (Bld) [Mass/Vol] 15.3 g/dL Normal 11.5-15.5 [facility] Comment on above: Order Comment: Speci men Type: BLOOD SPECIMEN Ordering Facility: [facility] Address: [address] [place] [address] Performed By: #### 5 7021-8 #### [facility] CLIA [id number] [address] Immature granulocytes (Bld) [#/Vol] 0.03 10*3/uL Normal <0.10 [facility] Comment on above: Order Comment: Speci men Type: BLOOD SPECIMEN Ordering Facility: [facility] Address: [address] [place] [address] Performed By: #### 5 7021-8 #### [facility] CLIA [id number] [address] [place] Immature granulocytes/100 WBC (Bld) 0.4 % Normal [facility] Comment on above: Order Comment: Speci men Type: BLOOD SPECIMEN Ordering Facility: [facility] Address: [address] [place] [address] Performed By: #### 5 7021-8 #### [facility] CLIA [id number] [address] [place] Lymphocytes (Bld) [#/Vol] 1.81 10*3/uL Normal 1.00-4.00 [facility] Comment on above: Order Comment: Speci men Type: BLOOD SPECIMEN Ordering Facility: [facility] Address: [address] [place] [address] Performed By: #### 5 7021-8 #### [facility] CLIA [id number] [address] Lymphocytes/100 WBC (Bld) 25.1 % Normal [facility] Comment on above: Order Comment: Speci men Type: BLOOD SPECIMEN Ordering Facility: [facility] Address: [address] [place] [address] Performed By: #### 5 7021-8 #### [facility] CLIA [id number] [address] [place] MCH (RBC) [Entitic mass] 30.6 pg Normal 26.0-34.0 [facility] Comment on above: Order Comment: Speci men Type: BLOOD SPECIMEN Ordering Facility: [facility] Address: [address] [place] [address] Performed By: #### 5 7021-8 #### [facility] CLIA [id number] [address] [place] MCHC (RBC) [Mass/Vol] 33.0 g/dL Normal 30.5-36.0 [facility] Comment on above: Order Comment: Speci men Type: BLOOD SPECIMEN Ordering Facility: [facility] Address: [address] [place] [address] Performed By: #### 5 7021-8 #### [facility] CLIA [id number] [address] [place] MCV (RBC) [Entitic vol] 92.8 fL Normal 80.0-100.0 [facility] Comment on above: Order Comment: Speci men Type: BLOOD SPECIMEN Ordering Facility: [facility] Address: [address] [place] [address] Performed By: #### 5 7021-8 #### [facility] CLIA [id number] [address] [place] Monocytes (Bld) [#/Vol] 0.59 10*3/uL Normal <0.87 [facility] Comment on above: Order Comment: Speci men Type: BLOOD SPECIMEN Ordering Facility: [facility] Address: [address] [place] [address] Performed By: #### 5 7021-8 #### [facility] CLIA [id number] [address] [place] Monocytes/100 WBC (Bld) 8.2 % Normal [facility] Comment on above: Order Comment: Speci men Type: BLOOD SPECIMEN Ordering Facility: [facility] Address: [address] [place] [address] Performed By: #### 5 7021-8 #### [facility] CLIA [id number] [address] [place] Neutrophils (Bld) [#/Vol] 4.58 10*3/uL Normal 1.45-7.50 [facility] Comment on above: Order Comment: Speci men Type: BLOOD SPECIMEN Ordering Facility: [facility] Address: [address] [place] [address] Performed By: #### 5 7021-8 #### [facility] CLIA [id number] [address] [place] Neutrophils/100 WBC (Bld) 63.6 % Normal [facility] Comment on above: Order Comment: Speci men Type: BLOOD SPECIMEN Ordering Facility: [facility] Address: [address] [place] [address] Performed By: #### 5 7021-8 #### [facility] CLIA [id number] [address] [place] Nucleated RBC (Bld) [#/Vol] 10*3/uL Normal <0.01 [facility] Comment on above: Order Comment: Speci men Type: BLOOD SPECIMEN Ordering Facility: [facility] Address: [address] [place] [address] Performed By: #### 5 7021-8 #### [facility] CLIA [id number] [address] OF [facility] Nucleated RBC/100 WBC (Bld) [Ratio] 0.0 /100 WBC Normal [facility] Comment on above: Order Comment: Speci men Type: BLOOD SPECIMEN Ordering Facility: [facility] Address: [address] [place] [address] Performed By: #### 5 7021-8 #### [facility] CLIA [id number] [address] [place] Platelet mean volume (Bld) [Entitic vol] 12.4 fL Normal 9.0-12.7 [facility] Comment on above: Order Comment: Speci men Type: BLOOD SPECIMEN Ordering Facility: [facility] Address: [address] [place] [address] Performed By: #### 5 7021-8 #### [facility] CLIA [id number] [address] [place] Platelets (Bld) [#/Vol] 114 10*3/uL Low 150-400 [facility] Comment on above: Order Comment: Speci men Type: BLOOD SPECIMEN Ordering Facility: [facility] Address: [address] [place] [address] Performed By: #### 5 7021-8 #### [facility] CLIA [id number] [address] OF [facility] RBC (Bld) [#/Vol] 5.00 10*6/uL Normal 3.90-5.20 [facility] Comment on above: Order Comment: Speci men Type: BLOOD SPECIMEN Ordering Facility: [facility] Address: [address] [place] [address] Performed By: #### 5 7021-8 #### [facility] CLIA [id number] [address] OF [facility] WBC (Bld) [#/Vol] 7.20 10*3/uL Normal 3.70-11.00 [facility] Comment on above: Order Comment: Speci men Type: BLOOD SPECIMEN Ordering Facility: [facility] Address: [address] [place] [address] Performed By: #### 5 7021-8 #### [facility] CLIA [id number] [address] Comprehensive metabolic 2000 panelon 06-09-2024 Albumin [Mass/Vol] 3.7 g/dL Low 3.9-4.9 [facility] Comment on above: Order Comment: Speci men Type: BLOOD SPECIMENOrdering Facility: [facility] Address: [address] [place] [address] Performed By: #### 2 4323-8 ####[facility] [id number] [address] ALP [Catalytic activity/Vol] 94 U/L Normal 34-123 [facility] Comment on above: Order Comment: Speci men Type: BLOOD SPECIMENOrdering Facility: [facility] Address: [address] [place] [address] Performed By: #### 2 4323-8 ####[facility] [id number] [address] ALT With P-5'-P [Catalytic activity/Vol] 12 U/L Normal 7-38 [facility] Comment on above: Order Comment: Speci men Type: BLOOD SPECIMENOrdering Facility: [facility] Address: [address] [place] [address] Performed By: #### 2 4323-8 ####[facility] [id number] [place] [address] [place] Anion gap [Moles/Vol] 13 mmol/L Normal 8-15 [facility] Comment on above: Order Comment: Speci men Type: BLOOD SPECIMENOrdering Facility: [facility] Address: [address] [place] [address] Performed By: #### 2 4323-8 ####[facility] [id number] [place] [address] [place] AST With P-5'-P [Catalytic activity/Vol] 16 U/L Normal 13-35 [facility] Comment on above: Order Comment: Speci men Type: BLOOD SPECIMENOrdering Facility: [facility] Address: [address] [place] [address] Performed By: #### 2 4323-8 ####[facility] [id number] [place] [address] [place] Bilirubin [Mass/Vol] 0.4 mg/dL Normal 0.2-1.3 [facility] Comment on above: Order Comment: Speci men Type: BLOOD SPECIMENOrdering Facility: [facility] Address: [address] [place] [address] Performed By: #### 2 4323-8 ####[facility] [id number] [place] [address] [place] Calcium [Mass/Vol] 8.5 mg/dL Normal 8.5-10.2 [facility] Comment on above: Order Comment: Speci men Type: BLOOD SPECIMENOrdering Facility: [facility] Address: [address] [place] [address] Performed By: #### 2 4323-8 ####[facility] [id number] [place] [address] [place] Chloride [Moles/Vol] 105 mmol/L Normal 98-107 [facility] Comment on above: Order Comment: Speci men Type: BLOOD SPECIMENOrdering Facility: [facility] Address: [address] [place] [address] Performed By: #### 2 4323-8 ####[facility] [id number] [place] [address] [place] CO2 [Moles/Vol] 21 mmol/L Low 22-30 [facility] Comment on above: Order Comment: Speci men Type: BLOOD SPECIMENOrdering Facility: [facility] Address: [address] [place] [address] Performed By: #### 2 4323-8 ####[facility] [id number] [address] [place] Creatinine [Mass/Vol] 1.06 mg/dL High 0.58-0.96 [facility] Comment on above: Order Comment: Speci men Type: BLOOD SPECIMENOrdering Facility: [facility] Address: [address] [place] [address] Performed By: #### 2 4323-8 ####[facility] [id number] [address] Creatinine and Glomerular filtration rate.predicted panel (S/P/Bld) 70 mL/min/1.73m??? Normal >=60 [facility] Comment on above: Order Comment: Speci men Type: BLOOD SPECIMENOrdering Facility: [facility] Address: [address] [place] [address] Result Comment: Annie mated Glomerular Filtration Rate (eGFR) is calculated using the 2020 CKD-EPI creatinine equation. This equation utilizes serum creatinine, sex, and age as parameters. The creatinine assay has traceable calibration to isotope dilution-mass spectrometry. Refer to KDIGO guidelines for clinical interpretation. In patients with unstable renal function, e.g. those with acute kidney injury, the eGFR may not accurately reflect actual GFR. Performed By: #### 2 4323-8 ####[facility] [id number] [address] [place] Glucose [Mass/Vol] 87 mg/dL Normal 74-99 [facility] Comment on above: Order Comment: Speci men Type: BLOOD SPECIMENOrdering Facility: [facility] Address: [address] [place] [address] Result Comment: The [place] Diabetes [employer] (ADA) provides guidance for cutoff values for fasting glucose and random glucose. The ADA defines fasting as no caloric intake for at least 8 hours. Fasting plasma glucose results between 100 to 125 mg/dL indicate increased risk for diabetes (prediabetes). Fasting plasma glucose results greater than or equal to 126 mg/dL meet the criteria for diagnosis of diabetes. In the absence of unequivocal hyperglycemia, results should be confirmed by repeat testing. In a patient with classic symptoms of hyperglycemia or hyperglycemic crisis, random plasma glucose results greater than or equal to 200 mg/dL meet the criteria for diagnosis of diabetes. Reference: Standards of Medical Care in Diabetes 2016, [place] [employer]. Diabetes Care. 2016.39(Suppl 1). Performed By: #### 2 4323-8 ####[facility] [id number] [place] [address] [place] Potassium [Moles/Vol] 4.1 mmol/L Normal 3.7-5.1 [facility] Comment on above: Order Comment: Luciai franc Type: BLOOD SPECIMENOrdering Facility: [facility] Address: [address] [place] [address] Performed By: #### 2 4323-8 ####[facility] [id number] [place] [address] [place] Protein [Mass/Vol] 6.1 g/dL Low 6.3-8.0 [facility] Comment on above: Order Comment: Speci men Type: BLOOD SPECIMENOrdering Facility: [facility] Address: [address] [id number] Performed By: #### 2 4323-8 ####[facility] [id number] [place] [address] [place] Sodium [Moles/Vol] 139 mmol/L Normal 136-144 [facility] Comment on above: Order Comment: Speci men Type: BLOOD SPECIMENOrdering Facility: [facility] Address: [address] [place] [address] Performed By: #### 2 4323-8 ####[facility] [id number] [place] [id number] [place] Urea nitrogen [Mass/Vol] 6 mg/dL Low 7- [facility] Comment on above: Order Comment: Speci men Type: BLOOD SPECIMENOrdering Facility: [facility] Address: [address] [id number] Performed By: #### 2 4323-8 ####[facility] [id number] [place] [id number] [place] ECG COMPLETEon 06-09-2024 ECG COMPLETE Ventricular Rate : 77 BPM Atrial Rate : 77 BPM P-R Interval : 144 ms QRS Duration : 78 ms Q-T Interval : 392 ms QTC Calculation(Bazett) : 443 ms Calculated P [place] : 29 degrees Calculated R [place] : 78 degrees Calculated T [place] : 27 degrees NORMAL SINUS RHYTHM ANTERIOR INFARCT , AGE UNDETERMINED ABNORMAL ECG NO PREVIOUS ECGS AVAILABLE Confirmed by MD ARVIZU CAROL ([id number]) on 06/09/2024 6:08:59 PM NAME : MARIELLA CHRISTINE PID : [id number] : 1990 Gender : Female Race : ORD : [id number] Procedure Date : Jun 09 2024 17:27:26 Edit Date : Jun 09 2024 18:09:01 Diagnosis: NORMAL SINUS RHYTHM ANTERIOR INFARCT , AGE UNDETERMINED ABNORMAL ECG NO PREVIOUS ECGS AVAILABLE Confirmed by MD ARVIZU CAROL ([id number]) on 06/09/2024 6:08:59 PM Test Reason : Check QT Location : 4 : [facility] EM Overread By : MD ARVIZU CAROL Edited By : MD ARVIZU CAROL Referred By : , Acquired by : REAGAN VELAZQUEZ [facility] ED NOTEon 06-09-2024 ED NOTE HNO ID: [id number] Author: REAGAN NICKERSON RN Service: Emergency Medicine Author Type: Registered Nurse Type: ED Notes Filed: 06/09/2024 16:35 Note Text: VBG delivered Normal [facility] ED NOTE HNO ID: [id number] Author: REAGAN NICKERSON RN Service: Emergency Medicine Author Type: Registered Nurse Type: ED Notes Filed: 06/09/2024 16:22 Note Text: Dr. Davis at bedside placing US IV Normal [facility] ED NOTE HNO ID: [id number] Author: REAGAN NICKERSON RN Service: Emergency Medicine Author Type: Registered Nurse Type: ED Notes Filed: 06/09/2024 16:20 Note Text: Resident notified of need for US IV. Pt room set up for seizure precautions. Pt on continuous cardiac and SPO2 monitoring. Pt has call light. Normal [facility] ED PROV NOTEon 06-09-2024 ED PROV NOTE HNO ID: [id number] Author: AMITA ARREDONDO, DO Service: ? Author Type: Physician Type: ED Provider Notes Filed: 06/09/2024 17:10 Note Text: I performed a history and physical examination of the patient and discussed the management with the resident. I reviewed the resident's note and agree with the documented findings and plan of care. The patient is a 34-year-old female with past medical history significant for schizophrenia, anxiety, and bipolar disorder presenting to the ED over concern of possible seizures. The patient states that she was told by her cousin that she had at least 4 grand mall seizures today. The reports that she has been feeling pain throughout her entire body. She states that she does have a history of seizures and used to be on medication for them. She states that she was not on medication for seizures for over 6 years and then at her psychiatrist at [facility] put her back on seizure medication. The patient reports no postictal state, tongue biting, loss of bowel or bladder control, or injuries. The patient states that she does agree with us contacting her cousin to get additional history. On exam, the patient is stable vital signs. She is nontoxic in appearance. She appears well-groomed and well-nourished. Head is atraumatic, normocephalic. Face symmetric. Speech and cognition are clear. Heart is regular, S1 and S2 are auscultated. Lungs good auscultation bilaterally. Respirations are symmetric and unlabored. Abdomen is soft, nontender, nondistended. No peritoneal signs. Extremities are atraumatic. Neurological exam is nonfocal. The patient moves all extremities equally. Gait is steady. The patient's cousin was contacted. The patient's cousin clarifies and states that it did not seem like the patient was having seizures, rather, panic attack. The patient reports no suicidal ideation, homicidal lesion, or hallucinations. Seizure precautions are initiated. The patient is ordered to have CBC, CMP, toxicology screen, urine test, VBG. CBC shows no concerning abnormalities. The patient has been negative for EtOH, salicylates, and acetaminophen. Urine hCG is negative. VBG shows no concerning abnormalities. Lactate is not elevated at 1.1. Glucose is 83. Urinalysis shows no evidence of UTI. Urine drug screen is positive for cannabis. The patient was ordered to receive acetaminophen for body aches. Doubt that the patient experienced a true seizure. The patient's symptoms, clinical presentation, and history from family suggest more so panic/anxiety rather than seizure disorder. The patient has remained hemodynamically and neurologically intact while under observation in the ED. Will plan for discharge home with close outpatient follow-up with PCP and/or psychiatry. AMITA ARREDONDO 06/09/24 1710 Normal [facility] ED PROV NOTE HNO ID: [id number] Author: LUZ ELENA ARVIZU MD Service: Emergency Medicine Author Type: Physician Type: ED Provider Notes Filed: 06/10/2024 01:33 Note Text: ED CONTINUATION OF CARE NOTE Code Status: Full Code Assumed care from: Dr. Mendoza Presentation / Findings / Interventions / Plan / Items to Follow Up: Her VBG was without acidosis or retention of CO2. Her CMP is without significant electrolyte imbalance, elevated liver enzymes, and BRET. Her urine drug screen positive for cannabinoids. Her serum alcohol, acetaminophen, and salicylate levels were undetectable. Her urinalysis is not suggestive of UTI. Her CBC is without leukocytosis or anemia. There was no evidence of seizure-like activity was elicited. The patient was discharged in stable condition. The patient discharged from the emergency department. I do not feel that the patient's evaluation reveals any acute reason for admission at this time. I instructed them to either follow up with their primary care physician or promptly return to the emergency department for reevaluation should symptoms worsen or new symptoms develop. I explained what symptoms would indicate the need to return to the emergency department. Shared decision making was used. The patient voiced understanding of the treatment plan and is agreeable with it. Clinical Impressions as of 06/09/24 1631 Observed seizure-like activity (HCC) Anxiety SIGNATURE: Luann Servin DO PATIENT NAME: Mariella Christine DATE: June 09, 2024 TIME: 4:31 PM PAGER/CONTACT #: LUANN SERVIN 06/10/24 0130 Attending Note I evaluated the patient and personally participated in the dave components. I agree with the resident's findings and plan as documented and have discussed the case and management of the patient's care with the resident. Signature: Luz Elena Arvizu MD Date: 06/10/2024 Time: 1:33 AM LUZ ELENA ARVIZU 06/10/24 0133 Normal [facility] ED PROV NOTE HNO ID: [id number] Author: AMITA ARREDONDO DO Service: Emergency Medicine Author Type: Physician Type: ED Provider Notes Filed: 06/10/2024 07:57 Note Text: ED Provider Note Patient Name: Mariella Christine : 1990 SERVICE DATE: 06/09/24 History Patient presents with: Multiple Concerns: Pt arrives ambulatory through triage for c/o seizures. Pt states that she was told by her cousins that she had 4 grand mal seizures today. Pt states that her mother and grandmother told her to come to the hospital and that she would be safe. Pt states she has been lactating and hasn't had a period in 6 months. Pt states that she had a positive HCG blood draw in March. Pt states that she is a paranoid schizophrenic, has bipolar depression and anxiety. Pt rambling continuously during triage. Pt present to the ED complaining of recent seizures. States she had 3 grand mal seizures today at home and family told her to come to the ED for a check. Does not remember the seizures, is told her right hand closed tightly and each lasted about 5 minutes. Lives w/ cousin who witnessed these events. Reports a history of grand mal seizures, was diagnosed about 1 1/2 yrs ago. No recent trauma or falls. Endorses a history of syncope, most recently about 6 mo ago. Pt smokes marijuana, most recently last night. No alcohol for 6 months. Has a hx ofcocaine use, is 10 yrs sober. No hx of IV drug use. Has a hx of schizophrenia, bipolar disorder, anxiety and is established with [facility]. Is on Buspar, Prozac, Trazodone, and Invega Sustenna. States last Invega Sustenna injection May 29, next appointment w/ [facility] on June 25. Pt lives w/ cousin, Steffanie. Feels safe at home. Denies SI/ HI. Pt also states she is currently , about 6 months. Pt states urine tests always say negative but the blood tests show I'm . States she is currently lactating. Pt gave permission to speak w/ her cousin, Steffanie ([phone]) Steffanie confirms the pt lives w/ her. Earlier today pt was outside smoking when her face became tense, she closed her eyes, started making noises and her arms became tense and stiff. States she tapped the pt and said her name, after about 30s- 1min the patient opened her eyes and began to respond. Pt reported pain in her chest and rubbed her chest after. This happened 3 times, about 5 minutes in between each event. Reports patient did not fall or hit her head, was seated in a chair. Cousin doesn't know what to call these events, however has a boyfriend as well as an uncle with epilepsy. Didn't look like their seizures, described it as an anxiety attack. Confirms the pt has a hx of anxiety. No safety concerns if the patient is discharged. PAST MEDICAL HISTORY Diagnosis Date Epigastric pain 12/15/2015 Facial laceration fell 10 ft. when 9 Fracture Arm fell 10 ft. when 9 Head injury fell 10 ft. 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 PAST SURGICAL HISTORY Procedure Laterality Date HERNIA REPAIR HX 11/27/2006 REMOVAL GALLBLADDER N/A 07/28/2021 FAMILY HISTORY Problem Relation Age of Onset Psychiatry Mother some problem - not sure what it is Cancer Maternal Aunt Seizures Maternal Aunt Seizures Maternal Uncle Seizures Brother Social History Tobacco Use Smoking status: Former Packs/day: 1.50 Years: 1.00 Additional pack years: 0.00 Total pack years: 1.50 Types: Cigarettes Quit date: 02/14/2022 Years since quittin.3 Smokeless tobacco: Never Vaping Use Vaping Use: current everyday user Substances: Flavoring Substance and Sexual Activity Alcohol use: No Drug use: No Comment: previously used cocaine - last usage was about a year ago Sexual activity: Never Partners: Female ALLERGIES Allergen Reactions Latex Rash Penicillins States mother told her she was allergic and doesn't rember what the reaction was Review of Systems HENT: Positive for tinnitus. Eyes: Positive for photophobia and visual disturbance. Cardiovascular: Positive for chest pain. Negative for leg swelling. Gastrointestinal: Positive for abdominal distention. Negative for abdominal pain and vomiting. Genitourinary: Positive for menstrual problem. Musculoskeletal: Positive for myalgias. Neurological: Positive for dizziness, seizures, syncope and headaches. Psychiatric/Behavio ral: Negative for suicidal ideas. The patient is nervous/anxious. Physical Exam Vitals [06/09/24 1324] BP Pulse Temp Temp src Resp SpO2 Weight Height 140/85 (!) 95 36.8 ?C (98.2 ?F) Oral 20 99 % 128.4 kg (283 lb) 1.626 m (5' 4) Physical Exam Constitutional: General: She is not in acute distress. Appearance: She is not toxic-appeari (more content not included)... Normal [facility] Ethanol SerPl-mCncon 024 Ethanol [Mass/Vol] mg/dL Normal <11 [facility] Comment on above: Order Comment: Speci men Type: BLOOD SPECIMENOrdering Facility: [facility] Address: [address] [place] [address] Performed By: #### 5 643-2, 3298-7, 4024-6 ####[facility] [id number] [place] [address] [place] HCG Preg Ur Qlon 06-09-2024 HCG ( test) Ql (U) Negative Normal Negative [facility] Comment on above: Order Comment: Speci men Type: URINE SPECIMENOrdering Facility: [facility] Address: [address] [place] [address] Result Comment: This test is intended to aid in the early detection of . Very dilute urine samples, as indicated by a low specific gravity, may not contain food products sales representative levels of hCG. This test detects intact hCG only. This test does not reliably detect hCG degradation products, including free-beta subunit and beta-core fragment. Therefore, this test may show reduced reactivity in urine after 8 weeks gestation. A number of conditions other than , including trophoblastic disease and certain non-trophoblastic neoplasms cause elevated levels of hCG. As with any assay employing mouse antibodies, the possibility exists for interference by human anti-mouse antibodies (HAMA) in the specimen. The test provides a presumptive diagnosis for . Performed By: #### 2 106-3 ####[facility]IA [id number] [place] [address] [place] Salicylates SerPl-mCncon Salicylates [Mass/Vol] mg/dL Low 3.0-30.0 [facility] Comment on above: Order Comment: Speci men Type: BLOOD SPECIMENOrdering Facility: [facility] Address: [address] [place] [address] Result Comment: The therapeutic range varies and has been reported to be 3.0 to 10.0 mg/dL for anti pyretic/analgesic conditions and 15.0 to 30.0 mg/dL for anti inflammatory/rheumatic fever conditions. Ranges published by the instrument hot mill roller. Reference ranges and high/low indicator flags are provided as general guidelines only. The treating physician must determine appropriate target levels/dosing based on the specific clinical situation. Performed By: #### 5 643-2, 3298-7, 4024-6 ####[facility]IA [id number] [place] [address] [place] TOXICOLOGY SCREEN, ROUTINE U RINEon 06-09-2024 Amphetamines Confirm (U) [Mass/Vol] Negative Normal Negative [facility] Comment on above: Order Comment: Speci men Type: URINE SPECIMEN [facility]ing Facility: [facility] Address: [address] [place] [address] Result Comment: Cuto ff threshold at 1000 ng/mL. Performed By: #### U TOX2 #### [facility] CLIA [id number] 1 [place] [address] [place] BARBITURATES, URINE Negative Normal Negative [facility] Comment on above: Order Comment: Speci men Type: URINE SPECIMEN [facility]ing Facility: [facility] Address: [facility] [place] [address] Result Comment: Cuto ff threshold at 200 ng/mL. Performed By: #### U TOX2 #### [facility] CLIA [id number] [address] OF [facility] [place], [place] Negative Normal Negative [facility] Comment on above: Order Comment: Speci men Type: URINE SPECIMEN [facility]ing Facility[facility] Address: [address] [place] [address] Result Comment: Cuto ff threshold at 200 ng/mL. Performed By: #### U TOX2 #### [facility] CLIA [id number] [address] Cannabinoids Screen Ql (U) Positive Abnormal Negative [facility] Comment on above: Order Comment: Speci men Type: URINE SPECIMEN [facility]ing Facility[facility] Address: [address] [place] [address] Result Comment: Cuto ff threshold at 50 ng/mL. Performed By: #### U TOX2 #### [facility] CLIA [id number] [address] OF [facility] Cocaine Ql (U) Negative Normal Negative [facility] Comment on above: Order Comment: Speci men Type: URINE SPECIMEN [facility]ing [facility] Address: [address] [place] [address] Result Comment: Cuto ff threshold at 300 ng/mL. Performed By: #### U TOX2 #### [facility] CLIA [id number] [address] [place] Ethanol (U) [Mass/Vol] <11 Normal <11 [facility] Comment on above: Order Comment: Speci men Type: URINE SPECIMEN [facility]ing [facility] Address: [address] [place] [address] Performed By: #### U TOX2 #### [facility] CLIA [id number] [address] [place] Opiates Screen Ql (U) Negative Normal Negative [facility] Comment on above: Order Comment: Speci men Type: URINE SPECIMEN [facility]ing [facility] Address: [address] [place] [address] Result Comment: Cuto ff threshold at 300 ng/mL. Performed By: #### U TOX2 #### [facility] CLIA [id number] [address] oxyCODONE cutoff Screen (U) [Mass/Vol] Negative Normal Negative [facility] Comment on above: Order Comment: Speci men Type: URINE SPECIMEN [facility]ing Facility[facility] Address: [address] [place] [address] Result Comment: Cuto ff threshold at 100 ng/mL. Performed By: #### U TOX2 #### [facility] CLIA [id number] [address] Phencyclidine Ql (U) Negative Normal Negative [facility] Comment on above: Order Comment: Speci men Type: URINE SPECIMEN [facility]ing Facility[facility] Address: [address] [place] [address] Result Comment: Cuto ff threshold at 25 ng/mL. Performed By: #### U TOX2 #### [facility] CLIA [id number] [address] Urinalysis complete panel (U )on 06-09-2024 Bilirubin Ql (U) Negative Normal Negative [facility] Comment on above: Order Comment: Speci men Type: URINE SPECIMEN [facility]ing [facility] Address: [address] [place] [address] Performed By: #### 2 4356-8 #### [facility] CLIA [id number] [address] Clarity (Unsp spec) Clear Normal Clear [facility] Comment on above: Order Comment: Speci men Type: URINE SPECIMEN [facility]ing [facility] Address: [address] [place] [address] Performed By: #### 2 4356-8 #### [facility] CLIA [id number] [address] OF [facility] Color (U) Colorless Normal yellow [facility] Comment on above: Order Comment: Speci men Type: URINE SPECIMEN Ordering Facility[facility] Address: [address] [place] [address] Performed By: #### 2 4356-8 #### [facility] CLIA [id number] [address] [place] Epithelial cells LM.HPF (Urine sed) [#/Area] Few Normal [facility] Comment on above: Order Comment: Speci men Type: URINE SPECIMEN [facility]ing [facility] Address: [address] [place] [address] Result Comment: Few Performed By: #### 2 4356-8 #### [facility] CLIA [id number] [address] Glucose Test strip (U) [Mass/Vol] Negative Normal Trace, Negative [facility] Comment on above: Order Comment: Speci men Type: URINE SPECIMEN Ordering Facility[facility] Address: [address] [place] [address] Performed By: #### 2 4356-8 #### [facility] CLIA [id number] [address] OF [facility] Hemoglobin Ql (U) Negative Normal Negative, Trace [facility] Comment on above: Order Comment: Speci men Type: URINE SPECIMEN [facility]ing Facility[facility] Address: [address] [place] [address] Performed By: #### 2 4356-8 #### [facility] CLIA [id number] [address] OF [facility] Ketones Ql (U) Negative Normal Negative, Trace [facility] Comment on above: Order Comment: Speci men Type: URINE SPECIMEN [facility] Address: [address] [place] [address] Performed By: #### 2 4356-8 #### [facility] CLIA [id number] [address] Leukocyte esterase Test strip Ql (U) Negative Normal Negative, 25 Bill/uL [facility] Comment on above: Order Comment: Speci men Type: URINE SPECIMEN [facility]ing [facility] Address: [address] [place] [address] Performed By: #### 2 4356-8 #### [facility] CLIA [id number] [address] Nitrite Ql (U) Negative Normal Negative [facility] Comment on above: Order Comment: Speci men Type: URINE SPECIMEN [facility] Address: [address] [place] [address] Performed By: #### 2 4356-8 #### [facility] CLIA [id number] [address] STATES OF [facility] pH (U) 7.0 [pH] Normal 5.0-8.0 [facility] Comment on above: Order Comment: Speci men Type: URINE SPECIMEN [facility] Address: [address] [place] [address] Performed By: #### 2 4356-8 #### [facility] CLIA [id number] [address] Protein (U) [Mass/Vol] Negative Normal Trace , Negative [facility] Comment on above: Order Comment: Speci men Type: URINE SPECIMEN [facility] Address: [address] [place] [address] Performed By: #### 2 4356-8 #### [facility] CLIA [id number] [address] [place] RBC LM.HPF (Urine sed) [#/Area] 0-3 /HPF Normal 0-3 /HPF [facility] Comment on above: Order Comment: Speci men Type: URINE SPECIMEN [facility]ing [facility] Address: [address] [place] [address] Performed By: #### 2 4356-8 #### [facility] CLIA [id number] [address] Specific gravity (U) [Rel density] 1.007 Normal 1.005-1.030 [facility] Comment on above: Order Comment: Speci men Type: URINE SPECIMEN [facility] Address: [address] [place] [address] Performed By: #### 2 4356-8 #### [facility] CLIA [id number] [address] Urobilinogen Ql (U) Normal Normal Normal [facility] Comment on above: Order Comment: Speci men Type: URINE SPECIMEN [facility]ing Facility: [facility] Address: [address] [place] [address] Performed By: #### 2 4356-8 #### [facility] CLIA [id number] [address] WBC LM.HPF (Urine sed) [#/Area] 0-5 /HPF Normal 0-5 /HPF [facility] Comment on above: Order Comment: Speci men Type: URINE SPECIMEN [facility]ing [facility] Address: [address] [place] [address] Performed By: #### 2 4356-8 #### [facility] CLIA [id number] [address] Progress Noteon 05-29-2024 Progress Note Erroneous encounter. No Show. Normal [facility] 36on 05-24-2024 36 Called patient to only verify her appointment and to verify reason for visit. Patient then began to tell me she has not had a period since October and had unprotected sex, she then tells me her breast was leaking, and I asked her to clarify and she said a bright white liquid. She then preceded to say at night when she is bed she feels something move in her stomach. So I asked her are you ? Patient then states she took 5 test and they were positive. Patient then says she went to [facility] and got an ultrasound and was only asked if her uterus was high or low. Patient was told she needed to make an emergency OBGYN appt and was never told if she was . Patient also stated when she uses the the bathroom she wants to push and tries to push and at times she will pee herself. Patient also states she doesn't like to go to the bathroom because she always wants to push. Patient says she missed the OBGYN appointment and never rescheduled. At this time I put patient on hold and spoke with a provider to see what they thought of situation. PCP said to give patient number for [facility] which I did. After this I began to wrap up the conversation and patient then says she has one more question. She says she lost something in the toilet. And I asked her what she lost and she says it looked like possible fetus and that there was blue blood in the toilet and that this happened on 05/22/24. Also states the she has cramping. I told patient to call [facility] once we ended are call and she agreed. After hanging up I spoke with a provider about the other information given about losing something in toilet. Provider states patient should go to ER. I Called patient and told her she should go to ER and she said she would. Normal [facility] [id number] 36 Pt RS appt for 05/29/24 with johanna [facility] 05-14-2024 36 LVM to return call, please assist in rescheduling their missed appointment if they would still like to be seen. Normal [facility] BASIC METABOLIC PANELon 05- Anion gap [Moles/Vol] 11 mmol/L Normal 3-13 [facility] Comment on above: Performed By: #### L AB15, [id number], [id number] ####Funeral Director/Embalmer/Owner: SADIE YANG ([id number])[address] Calcium [Mass/Vol] 9.1 mg/dL Normal 8.4-10.4 [facility] Comment on above: Performed By: #### L AB15, [id number], [id number] ####Funeral Director/Embalmer/Owner: SADIE YANG ([phone])[facility] ([address] Chloride [Moles/Vol] 106 mmol/L Normal 98-107 [facility] Comment on above: Performed By: #### L AB15, [id number], [id number] ####Funeral Director/Embalmer/Owner: SADIE YANG ([phone])[facility])[address] [place] [address] CO2 [Moles/Vol] 21 mmol/L Low 22-30 [facility] Comment on above: Performed By: #### L AB15, [id number], [id number] ####Funeral Director/Embalmer/Owner: SADIE YANG ([phone])[facility] ([facility])[address] [place] [address] Creatinine [Mass/Vol] 1.02 mg/dL Normal 0.52-1.04 [facility] Comment on above: Performed By: #### L AB15, [id number], [id number] ####Funeral Director/Embalmer/Owner: SADIE YANG ([phone])[facility])[address] [place] [address] GLOMERULAR FILTRATION RATE ML/MIN/1.73 SQ M.PREDICTED 73.7 mL/min/1.73m*2 Normal >60.0 [facility] Comment on above: Result Comment: Calc ulation based on the Chronic Kidney Disease Epidemiology Collaboration (CKD-EPI) equation refit without adjustment for race Performed By: #### L AB15, [id number], KSC259 ####Funeral Director/Embalmer/Owner: SADIE YANG ([id number])[facility] ([facility])[address] [place] [address] Glucose [Mass/Vol] 89 mg/dL Normal 70-100 [facility] Comment on above: Performed By: #### L AB15, [id number], ZER402 ####Funeral Director/Embalmer/Owner: SADIE YANG ([phone])[facility])[address] [place] [address] Potassium [Moles/Vol] 3.5 mmol/L Normal 3.5-5.1 [facility] Comment on above: Performed By: #### L AB15, [id number], TIS907 ####Funeral Director/Embalmer/Owner: SADIE [id number])[facility] ([facility])[address] [place] [address] Sodium [Moles/Vol] 139 mmol/L Normal 135-145 [facility] Comment on above: Performed By: #### L AB15, [id number], [id number] ####Funeral Director/Embalmer/Owner: SADIE YANG ([phone])[facility] ([facility])[address] [place] [address] Urea nitrogen [Mass/Vol] 12 mg/dL Normal 7-17 [facility] Comment on above: Performed By: #### L AB15, [id number], [id number] ####Funeral Director/Embalmer/Owner: SADIE YANG ([id number])[facility] ([facility])[address] [place] [address] Basic metabolic 1998 panelon 04-13-2024 Anion gap [Moles/Vol] 11 mmol/L 3 - 13 mmol/L [facility] Calcium [Mass/Vol] 9.1 mg/dL 8.4 - 10. 4 mg/dL [facility] Chloride [Moles/Vol] 106 mmol/L 98 - 10 7 mmol/L [facility] CO2 [Moles/Vol] 21 mmol/L Low 22 - 30 mmol/L [facility] Creatinine [Mass/Vol] 1.02 mg/dL 0.52 - 1.04 mg/dL [facility] GFR/1.73 sq M.predicted MDRD (S/P/Bld) [Vol rate/Area] 73.7 mL/min/{1.73_m2} - PINF [facility] Comment on above: Calculation based on the Chronic Kidney Disease Epidemiology Collaboration (CKD-EPI) equation refit without adjustment for race Glucose [Mass/Vol] 89 mg/dL 70 - 100 mg/dL [facility] Interpretation and review of laboratory results Abnormal [facility] Potassium [Moles/Vol] 3.5 mmol/L 3.5 - 5.1 mmol/L [facility] Sodium [Moles/Vol] 139 mmol/L 135 - 145 mmol/L [facility] Urea nitrogen [Mass/Vol] 12 mg/dL 7 - 17 mg/d L [facility] CBC W Auto Differential pane l (Bld)on 04-13-2024 Basophils (Bld) [#/Vol] 0.0 10*3/uL 0.0 - 0.2 10*3/uL [facility] Basophils/100 WBC (Bld) 0.6 % 0.0 - 2.0 % [facility] Eosinophils (Bld) [#/Vol] 0.2 10*3/uL 0.0 - 0.5 10*3/uL [facility] Eosinophils/100 WBC (Bld) 2.6 % 0.0 - 6.0 % [facility] Erythrocyte distribution width (RBC) [Ratio] 12.1 % 11.5 - 15.0 % [facility] Hematocrit (Bld) [Volume fraction] 45.1 % 35.0 - 47.0 % [facility] Hemoglobin (Bld) [Mass/Vol] 15.3 g/dL 11.7 - 16.0 g/dL [facility] Immature granulocytes (Bld) [#/Vol] 0.0 10*3/uL NINF - 0.1 10*3/uL [facility] Immature granulocytes/100 WBC (Bld) 0.4 % 0.0 - 2.0 % [facility] Interpretation and review of laboratory results Abnormal [facility] Lymphocytes (Bld) [#/Vol] 2.1 10*3/uL 1.0 - 4.3 10*3/uL [facility] Lymphocytes/100 WBC (Bld) 28.3 % 15.0 - 45.0 % [facility] MCH (RBC) [Entitic mass] 29.6 pg 26. 0 - 34.0 pg [facility] MCHC (RBC) [Mass/Vol] 33.9 % 30.5 - 36.0 % [facility] MCV (RBC) [Entitic vol] 87.2 fL 77.0 - 99.0 fL [facility] Monocytes (Bld) [#/Vol] 0.7 10*3/uL 0.0 - 0.9 10*3/uL [facility] Monocytes/100 WBC (Bld) 9.3 % 5.0 - 13.0 % [facility] Neutrophils (Bld) [#/Vol] 4.3 10*3/uL 1.8 - 7.5 10*3/uL [facility] Neutrophils/100 WBC (Bld) 58.8 % 38.0 - 82.0 % [facility] Nucleated RBC/100 WBC (Bld) [Ratio] 0.0 % [facility] Platelet mean volume (Bld) [Entitic vol] 12.1 fL 9.0 - 12.7 fL [facility] Platelets (Bld) [#/Vol] 118 10*3/uL Low 140 - 440 10*3/uL [facility] RBC (Bld) [#/Vol] 5.17 10*6/uL 3.80 - 5.2 0 10*6/uL [facility] WBC (Bld) [#/Vol] 7.2 10*3/uL 3.6 - 10.7 10*3/uL [facility] CBC WITH AUTO DIFFERENTIALon 04-13-2024 Basophils (Bld) [#/Vol] 0.0 10*3/uL Normal 0.0-0.2 [facility] Comment on above: Performed By: #### L [id number] ####Funeral Director/Embalmer/Owner: SADIE YANG ([phone])[facility])[address] [place] [address] Basophils/100 WBC (Bld) 0.6 % Normal 0.0-2.0 [facility] Comment on above: Performed By: #### L [id number] ####Funeral Director/Embalmer/Owner: SADIE YANG ([id number])[facility])[address] [place] [address] Eosinophils (Bld) [#/Vol] 0.2 10*3/uL Normal 0.0-0.5 [facility] Comment on above: Performed By: #### L [id number] ####Funeral Director/Embalmer/Owner: SADIE YANG ([id number])[facility])[address] [place] [address] Eosinophils/100 WBC (Bld) 2.6 % Normal 0.0-6.0 [facility] Comment on above: Performed By: #### L [id number] ####Funeral Director/Embalmer/Owner: SADIE YANG ([phone])[facility])[address] [place] [address] Erythrocyte distribution width (RBC) [Ratio] 12.1 % Normal 11.5-15.0 [facility] Comment on above: Performed By: #### L [id number] ####Funeral Director/Embalmer/Owner: SADIE YANG ([phone])[facility])[address] [place] [address] Hematocrit (Bld) [Volume fraction] 45.1 % Normal 35.0-47.0 [facility] Comment on above: Performed By: #### L [id number] ####Funeral Director/Embalmer/Owner: SADIE YANG ([phone])[facility])[address] [place] [address] Hemoglobin (Bld) [Mass/Vol] 15.3 g/dL Normal 11.7-16.0 [facility] Comment on above: Performed By: #### L [id number] ####Funeral Director/Embalmer/Owner: SADIE YANG ([phone])[facility])[address] [place] [address] IMMATURE GRANS % 0.4 % Normal 0.0-2.0 [facility] Comment on above: Performed By: #### L [id number] ####Funeral Director/Embalmer/Owner: SADIE YANG ([phone])[facility] ([facility])[address] [place] [address] IMMATURE GRANS ABSOLUTE 0.0 10*3/uL Normal <0.1 [facility] Comment on above: Performed By: #### L [id number] ####Funeral Director/Embalmer/Owner: SADIE YANG ([phone])[facility])[address] [place] [address] Lymphocytes (Bld) [#/Vol] 2.1 10*3/uL Normal 1.0-4.3 [facility] Comment on above: Performed By: #### L [id number] ####Funeral Director/Embalmer/Owner: SADIE YANG ([phone])[facility])[address] [place] [address] Lymphocytes/100 WBC (Bld) 28.3 % Normal 15.0-45.0 [facility] Comment on above: Performed By: #### L [id number] ####Funeral Director/Embalmer/Owner: SADIE YANG ([phone])[facility])[address] [place] [address] MCH (RBC) [Entitic mass] 29.6 pg Normal 26.0-34.0 [facility] Comment on above: Performed By: #### L [id number] ####Funeral Director/Embalmer/Owner: SADIE YANG ([phone])[facility])[address] [place] [address] MCHC 33.9 % Normal 30.5-36.0 [facility] Comment on above: Performed By: #### L [id number] ####Funeral Director/Embalmer/Owner: SADIE YANG ([phone])[facility])[address] [place] [address] MCV (RBC) [Entitic vol] 87.2 fL Normal 77.0-99.0 [facility] Comment on above: Performed By: #### L [id number] ####Funeral Director/Embalmer/Owner: SADIE YANG ([phone])[facility] ([facility])[address] [place] [address] Monocytes (Bld) [#/Vol] 0.7 10*3/uL Normal 0.0-0.9 [facility] Comment on above: Performed By: #### L [id number] ####Funeral Director/Embalmer/Owner: SADIE YANG ([phone])[facility])[address] [place] [address] Monocytes/100 WBC (Bld) 9.3 % Normal 5.0-13.0 [facility] Comment on above: Performed By: #### L [id number] ####Funeral Director/Embalmer/Owner: SADIE YANG ([phone])[facility])[address] [place] [address] NEUTROPHILS ABSOLUTE 4.3 10*3/uL Normal 1.8-7.5 [facility] Comment on above: Performed By: #### L [id number] ####Funeral Director/Embalmer/Owner: SADIE YANG ([phone])[facility])[address] [place] [address] Neutrophils/100 WBC (Bld) 58.8 % Normal 38.0-82.0 [facility] Comment on above: Performed By: #### L [id number] ####Funeral Director/Embalmer/Owner: SADIE YANG ([phone])[facility])[address] [place] [address] NRBC 0.0 /100 WBCs Normal 0.0-2.0 [facility] Comment on above: Performed By: #### L [id number] ####Funeral Director/Embalmer/Owner: SADIE YANG ([phone])[facility] ([facility])[address] [place] [address] Platelet mean volume (Bld) [Entitic vol] 12.1 fL Normal 9.0-12.7 [facility] Comment on above: Performed By: #### L [id number] ####Funeral Director/Embalmer/Owner: SADIE YANG ([phone])[facility] ([facility])[address] [place] [address] Platelets (Bld) [#/Vol] 118 10*3/uL Low 140-440 [facility] Comment on above: Performed By: #### L [id number] ####Funeral Director/Embalmer/Owner: SADIE YANG ([phone])[facility] ([facility])[address] [place] [address] RBC (Bld) [#/Vol] 5.17 10*6/uL Normal 3.80-5.20 [facility] Comment on above: Performed By: #### L [id number] ####Funeral Director/Embalmer/Owner: SADIE YANG ([phone])[facility] ([facility])[address] [place] [address] WBC (Bld) [#/Vol] 7.2 10*3/uL Normal 3.6-10.7 [facility] Comment on above: Performed By: #### L [id number] ####Funeral Director/Embalmer/Owner: SADIE YANG ([phone])[facility])[address] [place] [address] CT [facility] CERVICAL SPINE WO IV CONTRAST Patient Name: MARIELLA CHRISTINE : 1990 Exam Date/Time: 04/13/2024 17:12 Procedure: CT CERVICAL SPINE WO IV CONTRAST Ordering Provider: URBANO JONATHAN Reason For Exam: Neck trauma, dangerous injury mechanism (Age 16-64y) Indication: Trauma Comparison date: No comparison. FINDINGS: Dose reduction was employed with automated exposure control.3 mm unenhanced imaging of the brain performed. Images viewed in multiple orthogonal planes. There is no definite acute edema, midline shift, acute hemorrhage, or findings to suggest high likelihood of large acute infarct, within limits of the study. MRI more specific/sensitive. No convincing abnormal extra-axial fluid collections visualized. Bony structures:Unremark able as seen. CSF spaces are not convincingly abnormal. Orbits within normal limits. Review of the paranasal sinuses shows no air-fluid levels. IMPRESSION: No acute brain process identified. . CT cervical spine: Indication: Trauma and neck pain Comparison none FINDINGS: Dose reduction was employed with automated exposure control. Unenhanced cervical spine performed. 3-D imaging created and reviewed on independent 3-D workstation for better detection of pathology evaluation of neural foramina. Bone density:Normal. Acute lesions: No acute fracture or dislocation. Soft tissues: No soft tissue swelling. Arthritis: No significant degenerative change. Limited views of skull base unremarkable. Visualized portions of lung apices Show no major volume loss.. IMPRESSION: No acute process visualized. Report Dictated on Electronically Signed By: Jorge Arce MD Electronically Signed Date/Time: 04/13/2024 5:18 PM EDT HIEF COMPLAINTS Syncope CT HEAD WO IV CONTRAST Head trauma, moderate-severe CT CERVICAL SPINE WO IV CONTRAST Neck trauma, dangerous injury mechanism (Age 16-64y) Normal [facility] CT Cervical spine WO contras ton 04-13-2024 Patient Name: MARIELLA CHRISTINE : 1990 Exam Date/Time: 04/13/2024 17:12 Procedure: CT CERVICAL SPINE WO IV CONTRAST Ordering Provider: URBANO JONATHAN Reason For Exam: Neck trauma, dangerous injury mechanism (Age 16-64y) Indication: Trauma Comparison date: No comparison. FINDINGS: Dose reduction was employed with automated exposure control.3 mm unenhanced imaging of the brain performed. Images viewed in multiple orthogonal planes. There is no definite acute edema, midline shift, acute hemorrhage, or findings to suggest high likelihood of large acute infarct, within limits of the study. MRI more specific/sensitive. No convincing abnormal extra-axial fluid collections visualized. Bony structures:Unremark able as seen. CSF spaces are not convincingly abnormal. Orbits within normal limits. Review of the paranasal sinuses shows no air-fluid levels. [facility] Jorge Arce MD - 04/13/2024 Patient Name: MARIELLA CHRISTINE : 1990 [id number] Exam Date/Time: 04/13/2024 17:12 Procedure: CT CERVICAL SPINE WO IV CONTRAST Ordering Provider: URBANO JONATHAN Reason For Exam: Neck trauma, dangerous injury mechanism (Age 16-64y) Indication: Trauma Comparison date: No comparison. FINDINGS: Dose reduction was employed with automated exposure control.3 mm unenhanced imaging of the brain performed. Images viewed in multiple orthogonal planes. There is no definite acute edema, midline shift, acute hemorrhage, or findings to suggest high likelihood of large acute infarct, within limits of the study. MRI more specific/sensitive. No convincing abnormal extra-axial fluid collections visualized. Bony structures:Unremark able as seen. CSF spaces are not convincingly abnormal. Orbits within normal limits. Review of the paranasal sinuses shows no air-fluid levels. IMPRESSION: No acute brain process identified. . CT cervical spine: Indication: Trauma and neck pain Comparison none FINDINGS: Dose reduction was employed with automated exposure control. Unenhanced cervical spine performed. 3-D imaging created and reviewed on independent 3-D workstation for better detection of pathology evaluation of neural foramina. Bone density:Normal. Acute lesions: No acute fracture or dislocation. Soft tissues: No soft tissue swelling. Arthritis: No significant degenerative change. Limited views of skull base unremarkable. Visualized portions of lung apices Show no major volume loss.. IMPRESSION: No acute process visualized. Report Dictated on Electronically Signed By: Jorge Arce MD Electronically Signed Date/Time: 04/13/2024 5:18 PM EDT [facility] CT HEAD WO IV CONTRASTon CT HEAD WO IV CONTRAST Patient Name: MARIELLA CHRISTINE : 1990 Exam Date/Time: 04/13/2024 17:12 Procedure: CT HEAD WO IV CONTRAST Ordering Provider: URBANO JONATHAN Reason For Exam: Head trauma, moderate-severe Indication: Trauma Comparison date: No comparison. FINDINGS: Dose reduction was employed with automated exposure control.3 mm unenhanced imaging of the brain performed. Images viewed in multiple orthogonal planes. There is no definite acute edema, midline shift, acute hemorrhage, or findings to suggest high likelihood of large acute infarct, within limits of the study. MRI more specific/sensitive. No convincing abnormal extra-axial fluid collections visualized. Bony structures:Unremark able as seen. CSF spaces are not convincingly abnormal. Orbits within normal limits. Review of the paranasal sinuses shows no air-fluid levels. IMPRESSION: No acute brain process identified. . CT cervical spine: Indication: Trauma and neck pain Comparison none FINDINGS: Dose reduction was employed with automated exposure control. Unenhanced cervical spine performed. 3-D imaging created and reviewed on independent 3-D workstation for better detection of pathology evaluation of neural foramina. Bone density:Normal. Acute lesions: No acute fracture or dislocation. Soft tissues: No soft tissue swelling. Arthritis: No significant degenerative change. Limited views of skull base unremarkable. Visualized portions of lung apices Show no major volume loss.. IMPRESSION: No acute process visualized. Report Dictated on Electronically Signed By: Jorge Arce MD Electronically Signed Date/Time: 04/13/2024 5:18 PM EDT HIEF COMPLAINTS Syncope CT HEAD WO IV CONTRAST Head trauma, moderate-severe CT CERVICAL SPINE WO IV CONTRAST Neck trauma, dangerous injury mechanism (Age 16-64y) Normal [facility] CT Head WO contraston 2023 Patient Name: MARIELLA CHRISTINE : 1990 Exam Date/Time: 04/13/2024 17:12 Procedure: CT HEAD WO IV CONTRAST Ordering Provider: URBANO JONATHAN Reason For Exam: Head trauma, moderate-severe Indication: Trauma Comparison date: No comparison. FINDINGS: Dose reduction was employed with automated exposure control.3 mm unenhanced imaging of the brain performed. Images viewed in multiple orthogonal planes. There is no definite acute edema, midline shift, acute hemorrhage, or findings to suggest high likelihood of large acute infarct, within limits of the study. MRI more specific/sensitive. No convincing abnormal extra-axial fluid collections visualized. Bony structures:Unremark able as seen. CSF spaces are not convincingly abnormal. Orbits within normal limits. Review of the paranasal sinuses shows no air-fluid levels. [facility] Jorge Arce MD - 04/13/2024 Patient Name: MARIELLA CHRISTINE : 1990 Exam Date/Time: 04/13/2024 17:12 Procedure: CT HEAD WO IV CONTRAST Ordering Provider: URBANO JONATHAN Reason For Exam: Head trauma, moderate-severe Indication: Trauma Comparison date: No comparison. FINDINGS: Dose reduction was employed with automated exposure control.3 mm unenhanced imaging of the brain performed. Images viewed in multiple orthogonal planes. There is no definite acute edema, midline shift, acute hemorrhage, or findings to suggest high likelihood of large acute infarct, within limits of the study. MRI more specific/sensitive. No convincing abnormal extra-axial fluid collections visualized. Bony structures:Unremark able as seen. CSF spaces are not convincingly abnormal. Orbits within normal limits. Review of the paranasal sinuses shows no air-fluid levels. IMPRESSION: No acute brain process identified. . CT cervical spine: Indication: Trauma and neck pain Comparison none FINDINGS: Dose reduction was employed with automated exposure control. Unenhanced cervical spine performed. 3-D imaging created and reviewed on independent 3-D workstation for better detection of pathology evaluation of neural foramina. Bone density:Normal. Acute lesions: No acute fracture or dislocation. Soft tissues: No soft tissue swelling. Arthritis: No significant degenerative change. Limited views of skull base unremarkable. Visualized portions of lung apices Show no major volume loss.. IMPRESSION: No acute process visualized. Report Dictated on Electronically Signed By: Jorge Arce MD Electronically Signed Date/Time: 04/13/2024 5:18 PM EDT [facility] ECG 12-LEADon 04-13-2024 ECG 12-LEAD IMPRESSION: Sinus rhythm Probable anterior infarct, old Electronically Signed On 04-13-2024 22:19:39 EDT by Vanesa Phelps [facility] ED Nursing Noteon 04-13-2024 ED Nursing Note Vitals updated and patient was medicated. Denied further need or questions. This RN reviewed discharge paperwork with patient. Ambulated out of ED, going to main building to visit someone. Melissa Gilbert RN 04/13/242203 [facility] ED Provider Noteon ED Provider Note EMERGENCY DEPARTMENT ENCOUNTER Pt Name: Mraiella Christine Birthdate 1990 Date of evaluation: 04/13/2024 ED Provider: Yuliana Peck APRN EDcare was supervised by Dr. Urbano who independently examined and evaluated the patient. Please see their attestation note for further details. CHIEF COMPLAINT Chief Complaint Patient presents with Syncope Pt states she had a syncopal event in the elevator here. States she hit the back of her head. States she has syncopal events often. HISTORY OF PRESENT ILLNESS (Location/Symptom, Timing/Onset, Context/Setting, Quality, Duration, Modifying Factors, Severity) Note limiting factors. I wore appropriate PPE for the entirety of this encounter. HPI Mariella Christine is a 33 y.o. who presents to the emergency department after reported syncopal episode. Patient reports that she was in the elevator at the hospital after visiting a patient when she began feeling anxious, lightheaded, experienced cold sweats, and then suffered from apparent syncopal episode. Patient reports that she struck the back of her head on the wall. Patient not currently on any anticoagulating medications. Patient reports that she is having pain in the posterior aspect of her head. No neck or back pain. Patient reports frequent syncopal episodes in the past. Patient reports history of brain tumor, however I am unable to find documentation of this. I have seen the patient before and she has known history of fabrication of medical conditions. Patient denies headache, lightheadedness, dizziness, fever, chills, visual disturbances, chest pain, palpitations, shortness of breath, cough, abdominal pain, nausea, vomiting, diarrhea, constipation. Denies dysuria, hematuria, or polyuria. Nursing Notes were reviewed. Limitations to history: None Outside historians: None REVIEW OF SYSTEMS Review of Systems Pertinent positives and negatives as per HPI. 13 systems reviewed as detailed above. PAST MEDICAL HISTORY No past medical history on file. SURGICAL HISTORY No past surgical history on file. CURRENT MEDICATIONS Discharge Medication List as of 04/13/2024 7:16 PM CONTINUE these medications which have NOT CHANGED Details lidocaine (Lidoderm) 5 % patch Apply 1 patch topically daily. Remove & discard patch within 12 hours or as directed by ., Starting Mon02/21/2023, Print ALLERGIES Latex and Pcn [penicillins] FAMILY HISTORY No family history on file. 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 Constitutional: General: She is not in acute distress. Appearance: Normal appearance. She is well-developed. HENT: Head: Normocephalic and atraumatic. Jaw: There is normal jaw occlusion. Comments: Tenderness without objective trauma to the occiput Nose: Nose normal. Mouth/Throat: Mouth: Mucous membranes are moist. Pharynx: Oropharynx is clear. Eyes: Extraocular Movements: Extraocular movements intact. Conjunctiva/sclera: Conjunctivae normal. Pupils: Pupils are equal, round, and reactive to light. Cardiovascular: Rate and Rhythm: Normal rate and regular rhythm. Pulses: Normal pulses. Heart sounds: Normal heart sounds. No murmur heard. Pulmonary: Effort: Pulmonary effort is normal. No respiratory distress. Breath sounds: Normal breath sounds. Abdominal: General: Bowel sounds are normal. There is no distension. Palpations: Abdomen is soft. Tenderness: There is no abdominal tenderness. There is no guarding or rebound. Musculoskeletal: General: No swelling. Normal range of motion. Cervical back: Normal, normal range of motion and neck supple. Thoracic back: Normal. Lumbar back: Normal. Skin: General: Skin is warm and dry. Capillary Refill: Capillary refill takes less than 2 seconds. Neurological: General: No focal deficit present. Mental Status: She is alert and oriented to person, place, and time. Cranial Nerves: No cranial nerve deficit. Sensory: No sensory deficit. Motor: No weakness. Coordination: Coordination normal. Gait: Gait normal. Psychiatric: Mood and Affect: Mood normal. Behavior: Behavior normal. DIAGNOSTIC RESULTS RADIOLOGY (Per Emergency Physician): Interpretation per the Radiologist below, if available at the time of this note: CT head wo IV contrast Final Result No acute brain process identified. . CT cervical spine: Indication: Trauma and neck pain Comparison (more content not included)... Normal [facility] Laboratory - Chemistry and C hemistry - challengeon 04-13-2024 Glucose [Mass/Vol] 95 mg/dL 70 - 100 mg/dL [facility] Troponin I.cardiac [Mass/Vol] ng/mL NINF - 0.034 ng/mL [facility] Magnesium [Mass/Vol] 2.0 mg/dL 1.6 - 2 .3 mg/dL [facility] MAGNESIUMon 04-13-2024 Magnesium [Mass/Vol] 2.0 mg/dL Normal 1.6-2.3 [facility] Comment on above: Performed By: #### L [id number], [id number], [id number] ####Funeral Director/Embalmer/Owner: SADIE YANG ([phone])[facility] [place] [address] Magnesium [Mass/Vol]on 04-13 Interpretation and review of laboratory results Normal [facility] Panel InformationOrdered By: Vanesa Phelps on 04-13-2024 P [place] 27 degrees [facility] [employer] Work Phone: AL Interval 137 ms [facility] [employer] Work Phone: QRS [place] 25 degrees [facility] [employer] Work Phone: QRSD Interval 88 ms [facility] Work Phone: QT Interval 372 ms [facility] [employer] Work Phone: QTC Interval 438 ms [facility] [employer] Work Phone: T Wave [place] 26 degrees [facility] [employer] Work Phone: [facility] [employer] Work Phone: No Panel Informationon 04-13 Sinus rhythm Probable anterior infarct, old Electronically Signed On 04-13-2024 22:19:39 EDT by Vanesa Phelps CV Vanesa Painter MD - 04/13/2024 IMPRESSION: Sinus rhythm Probable anterior infarct, old Electronically Signed On 04-13-2024 22:19:39 EDT by Vanesa Phelps [facility] Interpretation and review of laboratory results Normal [facility] Performed by: [facility], [address] [place] [address] CLIA ID: [id number] [facility] No acute brain process identified. . CT cervical spine: Indication: Trauma and neck pain Comparison none FINDINGS: Dose reduction was employed with automated exposure control. Unenhanced cervical spine performed. 3-D imaging created and reviewed on independent 3-D workstation for better detection of pathology evaluation of neural foramina. Bone density:Normal. Acute lesions: No acute fracture or dislocation. Soft tissues: No soft tissue swelling. Arthritis: No significant degenerative change. Limited views of skull base unremarkable. Visualized portions of lung apices Show no major volume loss.. IMPRESSION: No acute process visualized. Report Dictated on Electronically Signed By: Jorge Arce MD Electronically Signed Date/Time: 04/13/2024 5:18 PM EDT [facility] Radiology Study observation (narrative) [facility] Radiology Study observation (narrative) [facility] No Panel InformationOrdered By: Jorge Arce on 04-13-2024 [employer] Work Phone: TROPONIN Ion 04-13-2024 Troponin I.cardiac [Mass/Vol] ng/mL Normal <0.034 [facility] Comment on above: Result Comment: ORDE R COMMENTS: Patients with high levels of Biotin oral intake (ie >5 mg/day) may have falsely decreased Troponin levels. Performed By: #### L [id number], [id number], [id number] ####Funeral Director/Embalmer/Owner: SADIE YANG ([id number])[facility] ([facility])[address] [place] [address] Troponin I.cardiac [Mass/Vol ]on 04-13-2024 Interpretation and review of laboratory results Normal [facility] Patients with high levels of Biotin oral intake (ie >5 mg/day) may have falsely decreased Troponin levels. [facility] Vital signsOrdered By: Betito Phelps on 04-13-2024 Heart rate 83 /min bpm [facility] [employer] Work Phone: 36on 04-04-2024 36 Called patient gave message no further questions. [facility] 36 Let patient know that we will discuss at her appointment. [facility] 36on 04-03-2024 36 Please advise. [facility] 36 Name of caller: Mariella Contact phone number: [phone] Relationship to Patient: patient Provider: Johanna Moore Practice: [facility] Chief Complaint/Reason for Call: Pt stated she was ordered to take a US and other labs from the ED back on 03/18 and no one ever told her the results. Pt would like a call back to discuss labs. Please advise, thank you. Best time of day caller can be reached: Any Patient advised that office/PCP has 24-48 business hours to return their call: No [facility] 36on 03-26-2024 36 S: Patient spoke with CAC nurse regarding needs to be establish with the [facility] PCP States she recently moved from [facility]. [facility]. B: Onset of symptoms/concern LMP vague. 03/18 HCG normal limits. States she has had blood test which tells her she is . A: states she is spotting and leaking milk from her breast. Reporting no control of her urine. R: Will follow up for the CHIP PERSON. Advised for her concerns would need to go to the ED Patient understands care advice. No further needs at this time. Patient instructed to call back with new or worsening symptoms. Reason for Disposition [1] Nipple discharge AND [2] not bloody (e.g., clear, white, yellow, brown, green) Protocols used: Breast [id number] Normal [facility] CT Abdomen and Pelvis W cont rast Sherman 03-19-2024 1. Trace pneumobilia (of no clinical significance). 2. Stable right adrenal adenoma. CT PELVIS: 3 mm axial cuts are obtained from the iliac crests through the symphysis pubis with 75 mL Isovue IV contrast. Dose reduction was employed with automated exposure control. The examination is compared to a previous study dated 10/04/2023. FINDINGS: There are nondistended loops of small bowel. Air and stool are identified within the colon to the level of the rectum. There is no evidence of obstruction. A normal-appearing appendix is seen in the right pelvis. The distal ureters and bladder are normal. No free fluid is seen within the pelvis. IMPRESSION: 1. Trace pneumobilia (of no clinical significance). 2. Stable right adrenal adenoma. 3. Normal appendix. 4. No CT evidence of an acute abdominal/pelvic process. Report Dictated on Electronically Signed By: Rodríguez Reyes MD Electronically Signed Date/Time: 03/19/2024 12:29 AM [facility] Patient Name: [facility]IELL[facility]RISTINE : 1990 [id number] Exam Date/Time: 03/18/2024 23:53 Procedure: CT ABDOMEN PELVIS W CONTRAST Ordering Provider: BARTLETT JACOB Reason For Exam: Abdominal pain, acute, nonlocalized CLINICAL INFORMATION: Abdominal pain extending into the pelvis. CT ABDOMEN: 3 mm axial cuts are obtained from the dome of the liver through the iliac crests with 75 mL Isovue IV contrast. Dose reduction was employed with automated exposure control. The examination is compared to a previous study dated 10/04/2023. FINDINGS: The lung bases are included on the examination and demonstrate no focal infiltrates or effusions. The heart size is within normal limits. The liver and spleen are homogeneous in their attenuation without focal abnormality. There is trace pneumobilia. Surgical clips are evident in the gallbladder fossa consistent with prior cholecystectomy. The pancreas and is normal. A 2.2 cm right adrenal adenoma is redemonstrated and unchanged. The left adrenal gland is unremarkable. Both kidneys are identified in their cortical phase. There is no evidence of hydronephrosis or hydroureter. No free fluid is seen within the abdomen. [facility] Rodríguez Reyes MD - 03/19/2024 Patient Name: MARIELLA CHRISTINE : 1990 [id number] Exam Date/Time: 03/18/2024 23:53 Procedure: CT ABDOMEN PELVIS W CONTRAST Ordering Provider: BARTLETT JACOB Reason For Exam: Abdominal pain, acute, nonlocalized CLINICAL INFORMATION: Abdominal pain extending into the pelvis. CT ABDOMEN: 3 mm axial cuts are obtained from the dome of the liver through the iliac crests with 75 mL Isovue IV contrast. Dose reduction was employed with automated exposure control. The examination is compared to a previous study dated 10/04/2023. FINDINGS: The lung bases are included on the examination and demonstrate no focal infiltrates or effusions. The heart size is within normal limits. The liver and spleen are homogeneous in their attenuation without focal abnormality. There is trace pneumobilia. Surgical clips are evident in the gallbladder fossa consistent with prior cholecystectomy. The pancreas and is normal. A 2.2 cm right adrenal adenoma is redemonstrated and unchanged. The left adrenal gland is unremarkable. Both kidneys are identified in their cortical phase. There is no evidence of hydronephrosis or hydroureter. No free fluid is seen within the abdomen. IMPRESSION: 1. Trace pneumobilia (of no clinical significance). 2. Stable right adrenal adenoma. CT PELVIS: 3 mm axial cuts are obtained from the iliac crests through the symphysis pubis with 75 mL Isovue IV contrast. Dose reduction was employed with automated exposure control. The examination is compared to a previous study dated 10/04/2023. FINDINGS: There are nondistended loops of small bowel. Air and stool are identified within the colon to the level of the rectum. There is no evidence of obstruction. A normal-appearing appendix is seen in the right pelvis. The distal ureters and bladder are normal. No free fluid is seen within the pelvis. IMPRESSION: 1. Trace pneumobilia (of no clinical significance). 2. Stable right adrenal adenoma. 3. Normal appendix. 4. No CT evidence of an acute abdominal/pelvic process. Report Dictated on Electronically Signed By: Rodríguez Reyes MD Electronically Signed Date/Time: 03/19/2024 12:29 AM EDT [facility] CT Abdomen and Pelvis W cont rast IVOrdered By: Rodríguez Reyes on 03-19-2024 [facility] Work Phone: CBC W Auto Differential pane l (Bld)Ordered By: Felicitas Lerma on 03-18-2024 Basophils (Bld) [#/Vol] 0.1 10*3/uL 0.0 - 0.2 10*3/uL [facility] Basophils/100 WBC (Bld) 0.7 % 0.0 - 2.0 % [facility] Eosinophils (Bld) [#/Vol] 0.1 10*3/uL 0.0 - 0.5 10*3/uL [facility] Eosinophils/100 WBC (Bld) 1.9 % 0.0 - 6.0 % [facility] Erythrocyte distribution width (RBC) [Ratio] 12.4 % 11.5 - 15.0 % [facility] Hematocrit (Bld) [Volume fraction] 38.4 % 35.0 - 47.0 % [facility] Hemoglobin (Bld) [Mass/Vol] 13.9 g/dL 11.7 - 16.0 g/dL [facility] Immature granulocytes (Bld) [#/Vol] 0.0 10*3/uL NINF - 0.1 10*3/uL [facility] Immature granulocytes/100 WBC (Bld) 0.3 % 0.0 - 2.0 % [facility] Interpretation and review of laboratory results Abnormal [facility] Lymphocytes (Bld) [#/Vol] 2.4 10*3/uL 1.0 - 4.3 10*3/uL [facility] Lymphocytes/100 WBC (Bld) 31.4 % 15.0 - 45.0 % [facility] MCH (RBC) [Entitic mass] 31.0 pg 26. 0 - 34.0 pg [facility] MCHC (RBC) [Mass/Vol] 36.2 % High 30.5 - 36.0 % [facility] MCV (RBC) [Entitic vol] 85.7 fL 77.0 - 99.0 fL [facility] Monocytes (Bld) [#/Vol] 0.8 10*3/uL 0.0 - 0.9 10*3/uL [facility] Monocytes/100 WBC (Bld) 9.9 % 5.0 - 13.0 % [facility] Neutrophils (Bld) [#/Vol] 4.2 10*3/uL 1.8 - 7.5 10*3/uL [facility] Neutrophils/100 WBC (Bld) 55.8 % 38.0 - 82.0 % [facility] Nucleated RBC/100 WBC (Bld) [Ratio] 0.0 % [facility] Platelet mean volume (Bld) [Entitic vol] 12.3 fL 9.0 - 12.7 fL [facility] Platelets (Bld) [#/Vol] 118 10*3/uL Low 140 - 440 10*3/uL [facility] RBC (Bld) [#/Vol] 4.48 10*6/uL 3.80 - 5.2 0 10*6/uL [facility] WBC (Bld) [#/Vol] 7.6 10*3/uL 3.6 - 10.7 10*3/uL [facility] CT Abdomen and Pelvis W cont rast Sherman 03-18-2024 Radiology Study observation (narrative) [facility] Comprehensive metabolic 1998 panelon 03-18-2024 Albumin [Mass/Vol] 4.0 g/dL 3.5 - 5.0 g/dL [facility] ALP [Catalytic activity/Vol] 80 U/L 38 - 126 U/L [facility] ALT [Catalytic activity/Vol] 18 U/L 0 - 34 U/L [facility] Anion gap [Moles/Vol] 9 mmol/L 3 - 13 mmol/L [facility] AST [Catalytic activity/Vol] 24 U/L 15 - 46 U/L [facility] Bilirubin [Mass/Vol] 0.6 mg/dL 0.2 - 1 .3 mg/dL [facility] Calcium [Mass/Vol] 9.3 mg/dL 8.4 - 10. 4 mg/dL [facility] Chloride [Moles/Vol] 106 mmol/L 98 - 10 7 mmol/L [facility] CO2 [Moles/Vol] 21 mmol/L Low 22 - 30 mmol/L [facility] Creatinine [Mass/Vol] 1.07 mg/dL High 0.52 - 1.04 mg/dL [facility] GFR/1.73 sq M.predicted MDRD (S/P/Bld) [Vol rate/Area] 69.6 mL/min/{1.73_m2} - PINF [facility] Comment on above: Calculation based on the Chronic Kidney Disease Epidemiology Collaboration (CKD-EPI) equation refit without adjustment for race Glucose [Mass/Vol] 111 mg/dL High 70 - 100 mg/dL [facility] Interpretation and review of laboratory results Abnormal [facility] Potassium [Moles/Vol] 3.7 mmol/L 3.5 - 5.1 mmol/L [facility] Protein [Mass/Vol] 7.2 g/dL 6.3 - 8.2 g/dL [facility] Sodium [Moles/Vol] 137 mmol/L 135 - 145 mmol/L [facility] Urea nitrogen [Mass/Vol] 11 mg/dL 7 - 17 mg/d L [facility] Slightly Hemolyzed. Interpret K+, ALKP, AST with caution. [facility] Laboratory - Chemistry and C hemistry - challengeon 03-18-2024 HCG.beta subunit Qn Females <=5 mIU/mL [facility] Lipase [Catalytic activity/Vol] 55 U/L 23 - 300 U/L [facility] Lipase [Catalytic activity/V ol]on 03-18-2024 Interpretation and review of laboratory results Normal [facility] No Panel Informationon 03-18 Values in should double every 2 to 3 days for the first 6 weeks. Elevated concentrations of human chorionic gonadotropin (hCG) measured in the first trimester of are observed in normal , but may serve as an indication of chorionic carcinoma, hydatiform mole, or multiple . Decreasing hCG concentrations indicate threatened or missed , recent termination of , ectopic , gestosis or intrauterine . Fadia- and postmenopausal females may have detectable hCG concentrations (< or = to 14 mIU/mL) due to pituitary production of hCG. Serum follicle-stimulatin g hormone measurement may aid in ruling-out in this population. Cutoffs of greater than 20 to 45 mIU/mL have been suggested and are method dependent. False-elevations (called phantom human chorionic gonadotropin: hCG) may occur with patients who have human antianimal or heterophilic antibodies. Some specimens may not dilute linearly due to abnormal forms of hCG. Elevated hCG concentrations not associated with are found in patients with other diseases such as tumors of the germ cells, ovaries, bladder, pancreas, stomach, lungs, and liver. This test is not intended to detect or monitor tumors or gestational trophoblastic disease. [facility] No Panel InformationOrdered By: Elena Rosenberg on 03-18-2024 HCG, RAPID SCREEN Not detected None Detected [facility] Urinalysis complete panel (U )Ordered By: Janette Narayanan on 03-18-2024 Bacteria LM.HPF (Urine sed) [#/Area] Negative Negative /HPF [facility] Bilirubin Ql (U) Negative Negative mg/dL [facility] Clarity (U) Extra Turbid Abnormal Clear [facility] h Color (U) Red Abnormal Lt. Yellow [facility] Epithelial cells.squamous LM.HPF (Urine sed) [#/Area] 3-5 [facility] h Glucose Ql (U) Normal Normal (<70) mg/dL [facility] Hemoglobin Ql (U) >1.0 Abnormal Negative mg/dL [facility] Hyaline casts Auto (Urine sed) [#/Area] Negative Negative /LPF [facility] Interpretation and review of laboratory results Abnormal [facility] Ketones (U) [Mass/Vol] Negative Negat pierce mg/dL [facility] Leukocyte esterase Test strip Ql (U) 75 Abnormal Negative Bill/uL [facility] Mucus LM.HPF (Urine sed) [#/Area] Few Negative /LPF [facility] Nitrite Ql (U) Negative Negative [facility] th pH (U) 5.5 [pH] 5.0 - 8.0 pH [facility] Protein (U) [Mass/Vol] 100 mg/dL Abnormal Negative [facility] RBC LM.HPF (Urine sed) [#/Area] /[HPF] Abnormal [facility] Specific gravity (U) [Rel density] 1.026 1.005 - 1.030 [facility] Urobilinogen (U) [Mass/Vol] Normal Normal (0-1) mg/dL [facility] WBC LM.HPF (Urine sed) [#/Area] 6-10 Abnormal [facility] Basic metabolic 1998 panelon 10-04-2023 Anion gap [Moles/Vol] 8 mmol/L 3 - 13 mmol/L [facility] Calcium [Mass/Vol] 9.4 mg/dL 8.4 - 10. 4 mg/dL [facility] Chloride [Moles/Vol] 102 mmol/L 98 - 10 7 mmol/L [facility] CO2 [Moles/Vol] 28 mmol/L 22 - 30 mmol/L [facility] Creatinine [Mass/Vol] 1.22 mg/dL High 0.52 - 1.04 mg/dL [facility] GFR/1.73 sq M.predicted MDRD (S/P/Bld) [Vol rate/Area] 59.5 mL/min/{1.73_m2} Low - PINF [facility] Comment on above: Calculation based on the Chronic Kidney Disease Epidemiology Collaboration (CKD-EPI) equation refit without adjustment for race Glucose [Mass/Vol] 88 mg/dL 70 - 100 mg/dL [facility] Interpretation and review of laboratory results Abnormal [facility] Potassium [Moles/Vol] 4.1 mmol/L 3.5 - 5.1 mmol/L [facility] Sodium [Moles/Vol] 138 mmol/L 135 - 145 mmol/L [facility] Urea nitrogen [Mass/Vol] 11 mg/dL 7 - 17 mg/d L [facility] CBC W Auto Differential pane l (Bld)Ordered By: Maya Lucio on 10-04-2023 Basophils (Bld) [#/Vol] 0.1 10*3/uL 0.0 - 0.2 10*3/uL [facility] Basophils/100 WBC (Bld) 1.0 % 0.0 - 2.0 % [facility] Eosinophils (Bld) [#/Vol] 0.2 10*3/uL 0.0 - 0.5 10*3/uL [facility] Eosinophils/100 WBC (Bld) 3.1 % 1.0 - 6.0 % [facility] Erythrocyte distribution width (RBC) [Ratio] 13.4 % 11.5 - 14.5 % [facility] Hematocrit (Bld) [Volume fraction] 47.8 % High 35.0 - 47.0 % [facility] Hemoglobin (Bld) [Mass/Vol] 16.3 g/dL High 11.7 - 16.0 g/dL [facility] Interpretation and review of laboratory results Abnormal [facility] Lymphocytes (Bld) [#/Vol] 2.2 10*3/uL 1.0 - 4.3 10*3/uL [facility] Lymphocytes/100 WBC (Bld) 31.6 % 20.0 - 40.0 % [facility] MCH (RBC) [Entitic mass] 30.4 pg 26. 0 - 34.0 pg [facility] MCHC (RBC) [Mass/Vol] 34.0 % 32.0 - 36.0 % [facility] MCV (RBC) [Entitic vol] 89.4 fL 80.0 - 98.0 fL [facility] Monocytes (Bld) [#/Vol] 0.7 10*3/uL 0.0 - 0.8 10*3/uL [facility] Monocytes/100 WBC (Bld) 10.2 % High 2.0 - 10.0 % [facility] Neutrophils (Bld) [#/Vol] 3.8 10*3/uL 1.8 - 7.0 10*3/uL [facility] Neutrophils/100 WBC (Bld) 54.1 % 40.0 - 80.0 % [facility] Nucleated RBC/100 WBC (Bld) [Ratio] 0.1 % [facility] Platelet mean volume (Bld) [Entitic vol] 10.7 fL 7.4 - 12.4 fL [facility] Platelets (Bld) [#/Vol] 122 10*3/uL Low 140 - 440 10*3/uL [facility] RBC (Bld) [#/Vol] 5.35 10*6/uL High 3.8 - 5.20 10*6/uL [facility] WBC (Bld) [#/Vol] 7.0 10*3/uL 3.6 - 10.7 10*3/uL [facility] CT Abdomen and Pelvis W cont rast Sherman 10-04-2023 1. Mild splenomegaly. 2. Right adrenal nodule may represent adenomatous change, but indeterminate. Follow-up maybe warranted. 3. Descending colon diverticulosis without evidence of diverticulitis. Report Dictated on Electronically Signed By: Ruel Jackson MD Electronically Signed Date/Time: 10/04/2023 9:40 PM [facility] [employer] [facility] Patient Name: MARIELLA CHRISTINE : 1990 Exam Date/Time: 10/04/2023 21:20 Procedure: CT ABDOMEN PELVIS W CONTRAST Ordering Provider: PECK SAMANTHA Reason For Exam: LUQ abdominal pain CT ABDOMEN AND PELVIS WITH CONTRAST CLINICAL INDICATION: LUQ abdominal pain TECHNIQUE: CT scan of the abdomen and pelvis, with IV contrast. Multiplanar reformations. Dose reduction was employed with automated exposure control. COMPARISON: None. FINDINGS: Abdomen: Visualized lung bases grossly unremarkable. Gallbladder surgically absent. Liver without significant abnormality. Spleen mildly enlarged measuring 15 cm in maximal AP dimension without significant abnormality. Pancreas without significant abnormality. Kidneys without significant abnormality. Nodular density in the right adrenal gland measures approximately 2.1 cm. Left adrenal gland grossly unremarkable. Pelvis: Incomplete distention of ascending and descending colon, with mild diverticulosis in the descending colon. Remainder of bowel grossly unremarkable. Appendix within normal limits. No significant, free peritoneal fluid or apparent adenopathy. Abdominal aorta is nonaneurysmal. Axial skeleton grossly intact. Ventral hernia repair in the epigastrium, including mesh placement. [facility] Ruel Jackson MD - 10/04/2023 Patient Name: MARIELLA CHRISTINE : 1990 Exam Date/Time: 10/04/2023 21:20 Procedure: CT ABDOMEN PELVIS W CONTRAST Ordering Provider: PECK SAMANTHA Reason For Exam: LUQ abdominal pain CT ABDOMEN AND PELVIS WITH CONTRAST CLINICAL INDICATION: LUQ abdominal pain TECHNIQUE: CT scan of the abdomen and pelvis, with IV contrast. Multiplanar reformations. Dose reduction was employed with automated exposure control. COMPARISON: None. FINDINGS: Abdomen: Visualized lung bases grossly unremarkable. Gallbladder surgically absent. Liver without significant abnormality. Spleen mildly enlarged measuring 15 cm in maximal AP dimension without significant abnormality. Pancreas without significant abnormality. Kidneys without significant abnormality. Nodular density in the right adrenal gland measures approximately 2.1 cm. Left adrenal gland grossly unremarkable. Pelvis: Incomplete distention of ascending and descending colon, with mild diverticulosis in the descending colon. Remainder of bowel grossly unremarkable. Appendix within normal limits. No significant, free peritoneal fluid or apparent adenopathy. Abdominal aorta is nonaneurysmal. Axial skeleton grossly intact. Ventral hernia repair in the epigastrium, including mesh placement. IMPRESSION: 1. Mild splenomegaly. 2. Right adrenal nodule may represent adenomatous change, but indeterminate. Follow-up maybe warranted. 3. Descending colon diverticulosis without evidence of diverticulitis. Report Dictated on Electronically Signed By: Ruel Jackson MD Electronically Signed Date/Time: 10/04/2023 9:40 PM EST [facility] Radiology Study observation (narrative) [facility] alth CT Abdomen and Pelvis W cont rast IVOrdered By: Ruel Jackson on 10-04-2023 [facility] Work Phone: Lipaseon 10-04-2023 Lipase [Catalytic activity/Vol] 43 U/L 23 - 300 U/L [facility] Lipase [Catalytic activity/V ol]on 10-04-2023 Interpretation and review of laboratory results Normal [facility] No Panel Informationon 10-04 [facility] Urinalysis complete panel (U )Ordered By: Katie Stewart on 10-04-2023 Bacteria LM.HPF (Urine sed) [#/Area] Negative Negative /HPF [facility] Bilirubin Ql (U) Negative Negative mg/dL [facility] Clarity (U) Clear Clear [facility] Color (U) Light Yellow Lt. Yellow [facility] Epithelial cells.squamous LM.HPF (Urine sed) [#/Area] 3-5 [facility] Glucose Ql (U) Normal Normal (<70) mg/dL [facility] Hemoglobin Ql (U) 0.03 mg/dL Abnormal Negative [facility] Interpretation and review of laboratory results Abnormal [facility] Ketones (U) [Mass/Vol] Negative Negat pierce mg/dL [facility] Leukocyte esterase Test strip Ql (U) Negative Negative Bill/uL [facility] Mucus LM.HPF (Urine sed) [#/Area] Few Negative /LPF [facility] Nitrite Ql (U) Negative Negative [facility] th pH (U) 7.0 [pH] 5.0 - 8.0 pH [facility] Protein (U) [Mass/Vol] Negative Negat pierce mg/dL [facility] RBC LM.HPF (Urine sed) [#/Area] 0-2 [facility] Specific gravity (U) [Rel density] 1.015 1.005 - 1.030 [facility] Urobilinogen (U) [Mass/Vol] Normal Normal (0-1) mg/dL [facility] WBC LM.HPF (Urine sed) [#/Area] 0-2 [facility] hCG, quantitative, on 10-04-2023 HCG.beta subunit Qn Females <=5 mIU/mL [facility] Values in should double every 2 to 3 days for the first 6 weeks. Elevated concentrations of human chorionic gonadotropin (hCG) measured in the first trimester of are observed in normal , but may serve as an indication of chorionic carcinoma, hydatiform mole, or multiple . Decreasing hCG concentrations indicate threatened or missed , recent termination of , ectopic , gestosis or intrauterine . Fadia- and postmenopausal females may have detectable hCG concentrations (< or = to 14 mIU/mL) due to pituitary production of hCG. Serum follicle-stimulatin g hormone measurement may aid in ruling-out in this population. Cutoffs of greater than 20 to 45 mIU/mL have been suggested and are method dependent. False-elevations (called phantom human chorionic gonadotropin: hCG) may occur with patients who have human antianimal or heterophilic antibodies. Some specimens may not dilute linearly due to abnormal forms of hCG. Elevated hCG concentrations not associated with are found in patients with other diseases such as tumors of the germ cells, ovaries, bladder, pancreas, stomach, lungs, and liver. This test is not intended to detect or monitor tumors or gestational trophoblastic disease. [facility] .Auto Diffon 04-20-2023 Basophil, Absolute 0.0 10 3/mcL Normal 0.0-0.2 [facility] ([place]) Comment on above: Performed By: #### A SENTHIL PABLO ADIFF, CBC #### [address] [address] Basophils/100 WBC (Bld) 0.9 % Normal 0.0-2.5 [facility] ([place]) Comment on above: Performed By: #### A SENTHIL PABLO ADIFF, CBC #### [id number] [place], [place] [address] Eosinophil, Absolute 0.2 10 3/mcL Normal 0.0-0.4 [facility] ([place]) Comment on above: Performed By: #### A SENTHIL PABLO ADIFF, CBC #### [address] [address] Eosinophils/100 WBC (Bld) 3.4 % Normal 0.0-7.0 [facility] ([place]) Comment on above: Performed By: #### A SENTHIL PABLO ADIFF, CBC #### [address] [address] Lymphocyte, Absolute 1.6 10 3/mcL Normal 0.8-3.9 [facility] ([place]) Comment on above: Performed By: #### A SENTHIL PABLO ADIFF, CBC #### [address] [address] Lymphocytes/100 WBC (Bld) 34.1 % Normal 10.0-50.0 [facility] ([place]) Comment on above: Performed By: #### A SENTHIL PABLO ADIFF, CBC #### [address] [address] Monocyte, Absolute 0.5 10 3/mcL Normal 0.2-1.0 [facility] ([place]) Comment on above: Performed By: #### A SENTHIL PABLO ADIFF, CBC #### [address] [address] Monocytes/100 WBC (Bld) 11.0 % Normal 1.7-13.0 [facility] ([place]) Comment on above: Performed By: #### A SENTHIL PABLO ADIFF, CBC #### [address] [address] Neutrophils/100 WBC (Bld) 50.6 % Normal 37.0-80.0 [facility] ([place]) Comment on above: Performed By: #### A SENTHIL PABLO ADIFF, CBC #### [address] [address] .GFRon 04-20-2023 GFR 61 ml/min/1.73sqm Normal [facility] ([place]) Comment on above: Result Comment: GFR Population mean for , Non- Americans Ages 20-29 = 116 mL/min/1.73 sq.m. Ages 30-39 = 107 mL/min/1.73 sq.m. Ages 40-49 = 99 mL/min/1.73 sq.m. Ages 50-59 = 93 mL/min/1.73 sq.m. Ages 60-69 = 85 mL/min/1.73 sq.m. Ages 70+ = 75 mL/min/1.73 sq.m. Chronic Kidney Disease: Less than 60 mL/min/1.73 square meters End Stage Renal Disease: Less than 15 mL/min/1.73 square meters Performed By: #### L IP, GFR, CMP #### [place] [address]177 GFR Non- 50 ml/min/1.73sqm Normal [facility] ([place] Comment on above: Result Comment: GFR Population mean for , Non- Americans Ages 20-29 = 116 mL/min/1.73 sq.m. Ages 30-39 = 107 mL/min/1.73 sq.m. Ages 40-49 = 99 mL/min/1.73 sq.m. Ages 50-59 = 93 mL/min/1.73 sq.m. Ages 60-69 = 85 mL/min/1.73 sq.m. Ages 70+ = 75 mL/min/1.73 sq.m. Chronic Kidney Disease: Less than 60 mL/min/1.73 square meters End Stage Renal Disease: Less than 15 mL/min/1.73 square meters Performed By: #### L IP, GFR, CMP #### [place] [address] .MDWon 04-20-2023 Monocyte Distribution Width 18.64 Normal 0.00-20.00 [facility] ([place] Comment on above: Result Comment: For ED adult patients suspected of sepsis, MDW<=20.0 does not rule out sepsis or risk of sepsis Performed By: #### A SENTHIL PABLO, LUIS A, CBC #### [place] [id number] .NEUABSon 04-20-2023 Neutrophil, Absolute 2.4 10 3/mcL Low 2.9-6.2 [facility] ([place]) Comment on above: Performed By: #### A SENTHIL PABLO, LUIS A, CBC #### [address] [address] .Urinalysis Microscopic (AO) on 04-20-2023 UA Bacteria Trace Abnormal [facility] ([place] Comment on above: Performed By: #### U A, PREGU, UAMICAO #### [place] [address] UA RBC 5-10 Abnormal None Seen [facility] [place] Comment on above: Performed By: #### U A, PREGU, UAMICAO #### [place] [address] UA RBC Casts 0-5 Abnormal [facility] ([place] Comment on above: Performed By: #### U Radha, PREGU, UAMICAO #### [address] [address] UA Squam Epithelial 0-5 Abnormal None Seen [facility] ([place] Comment on above: Performed By: #### U A, PREGU, UAMICAO #### [address] [address] UA WBC 0-5 Abnormal None Seen [facility] [place] Comment on above: Performed By: #### U A, PREGU, UAMICAO #### [place] [address] CBCon 04-20-2023 Erythrocyte distribution width (RBC) [Ratio] 13.2 % Normal 11.5-14.5 [facility] ([place] Comment on above: Performed By: #### A SENTHIL PABLO, LUIS A, CBC #### [place] [address] Hematocrit (Bld) [Volume fraction] 46.1 % Normal 37.0-47.0 [facility] [place] Comment on above: Performed By: #### A SENTHIL PABLO ADIFF, CBC #### [address] [address] Hgb 15.7 G/dL Normal 12.0-16.0 [facility] ([place] Comment on above: Performed By: #### A SENTHIL PABLO ADIFF, CBC #### [address] [address] MCH (RBC) [Entitic mass] 29.0 pg Normal 27.0-31.2 [facility] ([place] Comment on above: Performed By: #### A SENTHIL PABLO ADIFF, CBC #### [address] [address] MCHC 34.1 G/dL Normal 33.0-37.0 [facility] ([place] Comment on above: Performed By: #### A SENTHIL PABLO ADIFF, CBC #### [address] [address] MCV (RBC) [Entitic vol] 84.9 fL Normal 80.0-94.0 A [facility] ([place]) Comment on above: Performed By: #### A SENTHIL PABLO ADIFF, CBC #### [address] [address] Platelet 103 10 3/mcL Low 130-400 [facility] ([place] Comment on above: Performed By: #### A SENTHIL PABLO ADIFF, CBC #### [address] [address] Platelet mean volume (Bld) [Entitic vol] 9.5 fL Normal 7.4-10.4 [facility] ([place] Comment on above: Performed By: #### A SENTHIL PABLO ADIFF, CBC #### [address] [address] RBC 5.43 10 6/mcL High 4.20-5.40 [facility] ([place] Comment on above: Performed By: #### A SENTHIL PABLO ADIFF, CBC #### Johnny [address] [address] WBC 4.7 10 3/mcL Normal 4.6-10.8 [facility] ([place] Comment on above: Performed By: #### A SENTHIL PABLO ADIFF, CBC #### [address] [address] CMPon 04-20-2023 Albumin Level 3.9 G/dL Normal 3.5-5.0 [facility] ([place] Comment on above: Performed By: #### L IP, GFR, CMP #### [address] [address] Albumin/Globulin [Mass ratio] 1.2 {ratio} Normal 1.1-2.5 [facility] [place] Comment on above: Performed By: #### L IP, GFR, CMP #### [address] [address] ALP [Catalytic activity/Vol] 107 U/L Normal 40-135 [facility] ([place] Comment on above: Performed By: #### L IP, GFR, CMP #### [address] [address] ALT [Catalytic activity/Vol] 23 U/L Normal 14-59 [facility] ([place] Comment on above: Performed By: #### L IP, GFR, CMP #### [address] [address] AST [Catalytic activity/Vol] 13 U/L Normal 10-40 [facility] [place] Comment on above: Performed By: #### L IP, GFR, CMP #### [address] [address] Bili Total 0.6 mg/dL Normal 0.2-1.0 [facility] ([place] Comment on above: Result Comment: Use of this assay is not recommended for patients undergoing treatment with eltrombopag due to the potential for falsely elevated results. Performed By: #### L IP, GFR, CMP #### [address] [address] BUN/Creatinine Ratio 6 ratio Low 7-27 [facility] ([place]) Comment on above: Performed By: #### L IP, GFR, CMP #### [address] [address] Calcium [Mass/Vol] 9.0 mg/dL Normal 8.4-10.2 [facility] ([place]) Comment on above: Performed By: #### L IP, GFR, CMP #### [address] [address] Chloride [Moles/Vol] 106 mmol/L Normal 98-107 [facility] ([place] Comment on above: Performed By: #### L IP, GFR, CMP #### [address] [address] CO2 [Moles/Vol] 24 mmol/L Normal 22-29 [facility] ([place] Comment on above: Performed By: #### L IP, GFR, CMP #### [address] [address] Creatinine [Mass/Vol] 1.22 mg/dL High 0.55-1.02 [facility] ([place]) Comment on above: Performed By: #### L IP, GFR, CMP #### [address] [address] Electrolyte Balance 12.0 mEq/L Normal 4.0-15.0 [facility] ([place] Comment on above: Performed By: #### L IP, GFR, CMP #### [address] [address] Globulin 3.2 G/dL Normal [facility] ([place] Comment on above: Performed By: #### L IP, GFR, CMP #### [address] [address] Glucose [Mass/Vol] 85 mg/dL Normal 70-105 [facility] ([place] Comment on above: Performed By: #### L IP, GFR, CMP #### [address] [address] Potassium [Moles/Vol] 4.1 mmol/L Normal 3.5-5.1 [facility] ([place] Comment on above: Performed By: #### L IP, GFR, CMP #### [address] [address] Sodium [Moles/Vol] 142 mmol/L Normal 136-145 [facility] ([place] Comment on above: Performed By: #### L IP, GFR, CMP #### [place] [id number] Total Protein 7.1 G/dL Normal 6.4-8.2 [facility] ([place] Comment on above: Performed By: #### L IP, GFR, CMP #### [place] [phone] Urea nitrogen [Mass/Vol] 7 mg/dL Normal 7-18 [facility] [place] Comment on above: Performed By: #### L IP, GFR, CMP #### [place] [address] LIPon 04-20-2023 Lipase Level 15 U/L Low 16-77 [facility] ([place] Comment on above: Performed By: #### L IP, GFR, CMP #### [place] [id number] PREGUon 04-20-2023 HCG ( test) Ql (U) Negative Normal [facility] ([place] Comment on above: Performed By: #### U A, PREGU, UAMICAO #### [address] [address] test (u) int Not detected Invalid Interpretation Code [facility] [place] Comment on above: Performed By: #### U A, PREGU, UAMICAO #### [place] [address] UAon 04-20-2023 Color (U) Yellow Normal [facility] ([place] Comment on above: Performed By: #### U A, PREGU, UAMICAO #### [address] [address] Glucose (U) [Mass/Vol] Negative Normal Negative [facility] ([place] Comment [place] above: Performed By: #### U A, PREGU, UAMICAO #### [address] [address] Ketones Ql (U) Negative Normal Negative [facility] [place] Comment on above: Performed By: #### U A, PREGU, UAMICAO #### [place] [address] UA Appear Slightly Cloudy Abnormal Clear [facility] [place] Comment on above: Performed By: #### U A, PREGU, UAMICAO #### [address] [address] UA Blood Large Abnormal Negative [facility] [place] Comment on above: Performed By: #### U A, PREGU, UAMICAO #### [place] [address] UA Leuk Est Negative Normal Negative [facility] [place] Comment on above: Performed By: #### U A, PREGU, UAMICAO #### [address] [address] UA Nitrite Negative Normal Negative [facility] [place] Comment on above: Performed By: #### U A, PREGU, UAMICAO #### [place] [phone] UA pH 6.0 Normal 5.0 - 8.0 [facility] ([place] Comment on above: Performed By: #### U A, PREGU, UAMICAO #### [place] [address] UA Protein Negative Normal Negative [facility] [place] Comment on above: Performed By: #### U A, PREGU, UAMICAO #### [place] [address] UA Spec Grav 1.015 Normal 1.015-1.025 [facility] ([place] Comment on above: Performed By: #### U A, PREGU, UAMICAO #### [place] [address] UA Specimen Type Void Normal [facility] [place] Comment on above: Performed By: #### U A, PREGU, UAMICAO #### [address] [address] UA Urobilinogen 0.2 E.U./dL Normal 0.2-1.0 [facility] ([place] Comment on above: Performed By: #### U A, PREGU, UAMICAO #### [place] [phone] Urobilinogen (U) [Mass/Vol] Negative Normal Negative [facility] [place] Comment on above: Performed By: #### U A PREGU, UAMICAO #### [place] [address] XR Ribs Views and Chest PAon 02-21-2023 Normal chest and normal right ribs. Report Dictated on Electronically Signed By: Marcelo London Electronically Signed Date/Time: 02/21/2023 3:55 PM EDT [facility] Patient Name: MARIELLA CHRISTINE : 1990 Exam Date/Time: 02/21/2023 15:48 Procedure: XR RIBS 2 VIEWS RIGHT WITH CHEST ANTEROPOSTERIOR Ordering Provider: NOYOLA KAITLYN Reason For Exam: RIB PAIN RIGHT RIBS AND CHEST CLINICAL INDICATION: Pain TECHNIQUE: PA Chest and two views of the right ribs. COMPARISON: None. FINDINGS: The heart and mediastinum are normal. The lungs demonstrate no consolidation or atelectasis. The costophrenic angles are sharp. No pneumothorax is noted. The ribs demonstrate no evidence for fracture or bone lesion. [facility] Marcelo London MD - 02/21/2023 Patient Name: MARIELLA CHRISTINE : 1990 Exam Date/Time: 02/21/2023 15:48 Procedure: XR RIBS 2 VIEWS RIGHT WITH CHEST ANTEROPOSTERIOR Ordering Provider: NOYOLA KAITLYN Reason For Exam: RIB PAIN RIGHT RIBS AND CHEST CLINICAL INDICATION: Pain TECHNIQUE: PA Chest and two views of the right ribs. COMPARISON: None. FINDINGS: The heart and mediastinum are normal. The lungs demonstrate no consolidation or atelectasis. The costophrenic angles are sharp. No pneumothorax is noted. The ribs demonstrate no evidence for fracture or bone lesion. IMPRESSION: Normal chest and normal right ribs. Report Dictated on Electronically Signed By: Marcelo London Electronically Signed Date/Time: 02/21/2023 3:55 PM EDT [facility] Rad[facility] Study observation (narrative) [facility] XR Ribs Views and Chest PAOr dered By: Marcelo London on 02-21-2023 [employer] Work Phone: Essie 01-10-2023 [facility] Telephone (INTMWS) ---- MARIELLA CHRISTINE ([id number]) 1990 F Date Time Provider Department 01/10/23 SELENA ROBERT During your visit today, we recorded the following information about you: Eryn Deutsch LPN 01/10/2023 9:45 AM Signed Phoned patient to follow up on fall. Patient stated that she is nausea, chest hurts, numb and tingling. Patient stated that she see black and white dots all the time. Patient did a test positive but our lab test came back negative. patient does stay hydrated with water and juice. Patient states when she eats she vomits. PATIENT vomited this am and fell off toilet when she passed out. Patient does live with her cousin who helps her. Please advise. Eryn Robert MD 01/10/2023 12:53 PM Signed She needs to follow up with us today or tomorrow Regards, Selena Reyes LPN 01/10/2023 1:26 PM Signed Made 3 attempts to reach patient but each attempted recording received stating Your call did not go through please try again. Allergies As of Date: 01/10/2023 Noted Allergy Reaction LATEX 06/04/2010 2 - Rash PENICILLINS 06/04/2010 Comments: States mother told her she was allergic and doesn't rember what the reaction was Date Reviewed: 11/25/2022 Reviewed by: Marilou Singer RN - Fully Assessed Reason for Visit: Patient Update [1234] Prescriptions as of 03/21/2023 - omeprazole (PRILOSEC) 20 mg capsule TAKE [...] as needed. Problem List As Of Date 01/10/2023 Noted Resolved Epigastric Abdominal Pain [R10.13] 06/04/2010 Reflux [SEL8042] 06/04/2010 Personal History of Other Psychological Trauma *06/04/2010 Renal Insufficiency [N28.9] 06/09/2010 Thrombocytopenia [D69.6] 06/09/2010 Bipolar disorder, unspecified (HCC) [F31.9] 06/19/2015 Skin lesion [L98.9] 11/19/2015 Migraine without aura [G43.009] 11/06/2017 PTSD (post-traumatic stress disorder) [F43.10] 11/06/2017 Severe depression (HCC) [F32.2] 11/06/2017 Schizophrenia (HCC) [F20.9] 11/06/2017 Chronic midline low back pain without sciatica *11/06/2017 Morbid obesity (HCC) [E66.01] 11/06/2017 Encounter Status:Closed by ERYN DEUTSCH LPN on 03/21/23 [facility] Essie 01-09-2023 [facility] Telephone (FAMMareWS) ---- MARIELLA CHRISTINE ([id number]) 1990 F Date Time Provider Department 01/09/23 KYLAH BRUNO During your visit today, we recorded the following information about you: Kylah Bruno APRN.KODI 01/09/2023 4:06 PM Signed Please let patient know her thyroid level was slightly abnormal. I would like to recheck this in 4 weeks. Thank you DAGOBERTO Baptiste LPN 01/09/2023 4:59 PM Signed patient notified and verbalized understanding. Eryn Deutsch LPN Allergies As of Date: 01/09/2023 Noted Allergy Reaction LATEX 06/04/2010 2 - Rash PENICILLINS 06/04/2010 Comments: States mother told her she was allergic and doesn't rember what the reaction was Date Reviewed: 11/25/2022 Reviewed by: Marilou Singer RN - Fully Assessed Reason for Visit: Results [95] Primary Visit Diagnosis:Abnormal TSH [R79.89] Order(s):TSH BLD [SQTSH] Order #: [id number] FUTURE T3 BLD [SQT3] Order #: [id number] FUTURE T4 FREE/FREE THYROX [SQFT4] Order #: [id number] FUTURE Prescriptions as of 01/09/2023 - omeprazole (PRILOSEC) 20 mg capsule TAKE [...] as needed. Problem List As Of Date 01/09/2023 Noted Resolved Epigastric Abdominal Pain [R10.13] 06/04/2010 Reflux [ITP1416] 06/04/2010 Personal History of Other Psychological Trauma *06/04/2010 Renal Insufficiency [N28.9] 06/09/2010 Thrombocytopenia [D69.6] 06/09/2010 Bipolar disorder, unspecified (HCC) [F31.9] 06/19/2015 Skin lesion [L98.9] 11/19/2015 Migraine without aura [G43.009] 11/06/2017 PTSD (post-traumatic stress disorder) [F43.10] 11/06/2017 Severe depression (HCC) [F32.2] 11/06/2017 Schizophrenia (HCC) [F20.9] 11/06/2017 Chronic midline low back pain without sciatica *11/06/2017 Morbid obesity (HCC) [E66.01] 11/06/2017 Encounter Status:Closed by ERYN DEUTSCH LPN on 01/09/23 Normal [facility] Amylase SerPl-cCncon 023 Amylase [Catalytic activity/Vol] 50 U/L Normal 30-104 [facility] Comment on above: Order Comment: Speci men Type: BLOOD SPECIMEN Ordering Facility: [facility] Address: [address] [place] [id number] Performed By: #### 1 798-8, 85756-9, 4220-3, 3016-3 #### [facility] CLIA [id number] [address] [facility] [place] [address] [place] C trach+GC DNA Ur Ql YURIDIA+pro beon 01-06-2023 C. trachomatis+N. gonorrhoeae DNA YURIDIA+probe Ql (U) GC AMPLIFICATION: Negative for Neisseria gonorrhoeae by amplification CHLAMYDIA AMPLIFICATION: Negative for Chlamydia trachomatis by amplification Normal [facility] Comment on above: Performed By: #### 4 4806-8 #### [facility] CLIA [id number] [address] [place] [address] [place] CBC W Auto Differential pane l (Bld)on 01-06-2023 Basophils (Bld) [#/Vol] 0.06 10*3/uL Normal <0.11 [facility] Comment on above: Order Comment: Speci men Type: BLOOD SPECIMEN Ordering Facility: [facility] Address: [address] [place] [address] Performed By: #### 5 7021-8 #### [facility] CLIA [id number] [address] [place] [address] [place] Basophils/100 WBC (Bld) 0.8 % Normal [facility] Comment on above: Order Comment: Speci men Type: BLOOD SPECIMEN Ordering Facility: [facility] Address: [address] [place] [address] Performed By: #### 5 7021-8 #### [facility] CLIA [id number] [address] [place] [address] [place] Differential cell count method Nom (Bld) Auto Normal [facility] Comment on above: Order Comment: Speci men Type: BLOOD SPECIMEN Ordering Facility: [facility] Address: [address] Performed By: #### 5 7021-8 #### [facility] CLIA [id number] [address] [place] [address] [place] Eosinophils (Bld) [#/Vol] 0.12 10*3/uL Normal <0.46 [facility] Comment on above: Order Comment: Speci men Type: BLOOD SPECIMEN Ordering Facility: [facility] Address: [address] Performed By: #### 5 7021-8 #### [facility] CLIA [id number] [address] [place] [address] [place] Eosinophils/100 WBC (Bld) 1.6 % Normal [facility] Comment on above: Order Comment: Speci men Type: BLOOD SPECIMEN Ordering Facility: [facility] Address: [address] [place], [place] [address] Performed By: #### 5 7021-8 #### [facility] CLIA [id number] [address] [place] [address] [place] Erythrocyte distribution width (RBC) [Ratio] 13.8 % Normal 11.5-15.0 [facility] Comment on above: Order Comment: Speci men Type: BLOOD SPECIMEN Ordering Facility: [facility] Address: [address] [place], [place] [address] Performed By: #### 5 7021-8 #### [facility] CLIA [id number] [address] [place] [address] [place] Hematocrit (Bld) [Volume fraction] 46.7 % High 36.0-46.0 [facility] Comment on above: Order Comment: Speci men Type: BLOOD SPECIMEN Ordering Facility: [facility] Address: [address] [place], [place] [address] Performed By: #### 5 7021-8 #### [facility] CLIA [id number] [address] [place] [address] [place] Hemoglobin (Bld) [Mass/Vol] 16.4 g/dL High 11.5-15.5 [facility] Comment on above: Order Comment: Speci men Type: BLOOD SPECIMEN Ordering Facility: [facility] Address: [address] [place], [place] [address] Performed By: #### 5 7021-8 #### [facility] CLIA [id number] [address] [place] [address] [place] Immature granulocytes (Bld) [#/Vol] 10*3/uL Normal <0.10 [facility] Comment on above: Order Comment: Speci men Type: BLOOD SPECIMEN Ordering Facility: [facility] Address: [address] Performed By: #### 5 7021-8 #### [facility] CLIA [id number] [address] [place] [address] [place] Immature granulocytes/100 WBC (Bld) 0.3 % Normal [facility] Comment on above: Order Comment: Speci men Type: BLOOD SPECIMEN Ordering Facility: [facility] Address: [address] [place], [place] [address] Performed By: #### 5 7021-8 #### [facility] CLIA [id number] [address] [place] [address] [place] Lymphocytes (Bld) [#/Vol] 1.78 10*3/uL Normal 1.00-4.00 [facility] Comment on above: Order Comment: Speci men Type: BLOOD SPECIMEN Ordering Facility: [facility] Address: [address] [place], [place] [address] Performed By: #### 5 7021-8 #### [facility] CLIA [id number] [address] [place] [address] [place] Lymphocytes/100 WBC (Bld) 23.2 % Normal [facility] Comment on above: Order Comment: Speci men Type: BLOOD SPECIMEN Ordering Facility: [facility] Address: [address] Performed By: #### 5 7021-8 #### [facility] CLIA [id number] [address] [place] [address] [place] MCH (RBC) [Entitic mass] 30.7 pg Normal 26.0-34.0 [facility] Comment on above: Order Comment: Speci men Type: BLOOD SPECIMEN Ordering Facility: [facility] Address: [address] Performed By: #### 5 7021-8 #### [facility] CLIA [id number] [address] [place] [address] [place] MCHC (RBC) [Mass/Vol] 35.1 g/dL Normal 30.5-36.0 [facility] Comment on above: Order Comment: Speci men Type: BLOOD SPECIMEN Ordering Facility: [facility] Address: [address] Performed By: #### 5 7021-8 #### [facility] CLIA [id number] [address] [place] [address] [place] MCV (RBC) [Entitic vol] 87.3 fL Normal 80.0-100.0 [facility] Comment on above: Order Comment: Speci men Type: BLOOD SPECIMEN Ordering Facility: [facility] Address: [address] Performed By: #### 5 7021-8 #### [facility] CLIA [id number] [address] [place] [address] [place] Monocytes (Bld) [#/Vol] 0.71 10*3/uL Normal <0.87 [facility] Comment on above: Order Comment: Speci men Type: BLOOD SPECIMEN Ordering Facility: [facility] Address: [address] [place] [address] Performed By: #### 5 7021-8 #### [facility] CLIA [id number] [address] [place] [address] [place] Monocytes/100 WBC (Bld) 9.3 % Normal [facility] Comment on above: Order Comment: Speci men Type: BLOOD SPECIMEN Ordering Facility: [facility] Address: [address] Performed By: #### 5 7021-8 #### [facility] CLIA [id number] [address] [place] [address] [place] Neutrophils (Bld) [#/Vol] 4.97 10*3/uL Normal 1.45-7.50 [facility] Comment on above: Order Comment: Speci men Type: BLOOD SPECIMEN Ordering Facility: [facility] Address: [address] [place] [address] Performed By: #### 5 7021-8 #### [facility] CLIA [id number] [address] [place] [address] [place] Neutrophils/100 WBC (Bld) 64.8 % Normal [facility] Comment on above: Order Comment: Speci men Type: BLOOD SPECIMEN Ordering Facility: [facility] Address: [address] [place] [address] Performed By: #### 5 7021-8 #### [facility] CLIA [id number] [address] [place] [address] [place] Nucleated RBC (Bld) [#/Vol] 10*3/uL Normal <0.01 [facility] Comment on above: Order Comment: Speci men Type: BLOOD SPECIMEN Ordering Facility: [facility] Address: [address] [place], [place] [address] Performed By: #### 5 7021-8 #### [facility] CLIA [id number] [facility] [place] [address] [place] Nucleated RBC/100 WBC (Bld) [Ratio] 0.0 /100 WBC Normal [facility] Comment on above: Order Comment: Speci men Type: BLOOD SPECIMEN Ordering Facility: [facility] Address: [address] [place], [place] [address] Performed By: #### 5 7021-8 #### [facility] CLIA [id number] [address] [place] [address] [place] Platelet mean volume (Bld) [Entitic vol] 12.8 fL High 9.0-12.7 [facility] Comment on above: Order Comment: Speci men Type: BLOOD SPECIMEN Ordering Facility: [facility] Address: [address] Performed By: #### 5 7021-8 #### [facility] CLIA [id number] [address] [place] [address] [place] Platelets (Bld) [#/Vol] 148 10*3/uL Low 150-400 [facility] Comment on above: Order Comment: Speci men Type: BLOOD SPECIMEN Ordering Facility: [facility] Address: [address] [address] Performed By: #### 5 7021-8 #### [facility] CLIA [id number] [address] [place] [address] [place] RBC (Bld) [#/Vol] 5.35 10*6/uL High 3.90-5.20 [facility] Comment on above: Order Comment: Speci men Type: BLOOD SPECIMEN Ordering Facility: [facility] Address: [address] [place] [address] Performed By: #### 5 7021-8 #### [facility] CLIA [id number] [address] [place] [address] [place] WBC (Bld) [#/Vol] 7.66 10*3/uL Normal 3.70-11.00 [facility] Comment on above: Order Comment: Speci men Type: BLOOD SPECIMEN Ordering Facility: [facility] Address: [address] [place], [place] [address] Performed By: #### 5 7021-8 #### [facility] CLIA [id number] [address] [place] [address] [place] [facility] [place] CNOVon 01-06-2023 CNOV Office Visit (INTMWS) ---- MARIELLA CHRISTINE ([id number]) 1990 F Date Time Provider Department 01/06/23 2:00 PM KYLAH BRUNO During your visit today, we recorded the following information about you: Pulse Respiration Blood pressure Weight 80/minute 16/minute 128/80 133.8 kg Kylah Bruno APRN.CNP 01/06/2023 4:06 PM Signed CC: Patient presents with: Menstrual Problem: Period is late HPI Mariella Christine is a 32 year old female who presents today for multiple concerns. Patient is accompanied by her cousin to appointment. Patient does have a history of schizophrenia but states she is still seeing psychiatry for this and taking medications. States she saw a neurologist in [place] which she was diagnosed with stage 3 brain cancer. Was supposed to start chemotherapy last week but wants to make sure she is not first. Is unable to remember name of neurologist and states her mother threw away the paper work but they should be calling her. Last menstrual cycle was 2 months ago. Had a large blood clot she passed she thought looked like a sack a few weeks ago. Has also had lower abdominal pain and vaginal spasms for the past two weeks which she states occurred with past pregnancies. Also reports increased frequency pain and difficulty and urinating. Has chronic constipation that is relieved with diet. States she has not had a bowel movement in 2 weeks. States she throws up every time she eats. Reports clear to white vaginal drainage. Is sexually active, last sexual intercourse was unprotected 2 months ago. Is not aware of any known sexual diseases. Reports having 2 pregnancies, no living children. Unclear if she had miscarriages or still births. Denies having a early childhood associate teacher. Denies fever chills, diarrhea, change in energy, cough, chest pain, or shortness of breath. REVIEW OF SYSTEMS General: no fevers, no chills, no night sweats, no recurrent infections, no change in energy, and no significant changes in weight Respiratory: no cough, no wheezing, no shortness of breath, no hemoptysis Cardiovascular: no chest pain, no chest pressure, no palpitations, and no swelling GI: See HPI : See HPI Endocrine: no fatigue, no polyphagia, and no polydipsia Neurologic: No headache, weakness, numbness, tingling, dizziness, syncope. PAST MEDICAL HISTORY Diagnosis Date Epigastric pain 12/15/2015 Facial laceration fell 10 ft. when 9 Fracture Arm fell 10 ft. when 9 Head injury fell 10 ft. 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 Rinse mouth after use. haloperidol decanoate (HALDOL) 50 mg/mL injection Inject intramuscularly once every month. benztropine (COGENTIN) 1 mg tablet Take 1 mg by mouth twice daily. haloperidol (HALDOL) 5 mg tablet hydrOXYzine pamoate (VISTARIL) 50 mg capsule 50 mg twice daily. albuterol HFA (PROVENTIL HFA, VENTOLIN HFA) 90 mcg/actuation inhaler Inhale 2 Puffs as instructed every 4 hours as needed. FAMILY HISTORY Problem Relation Age of Onset Psychiatry Mother some problem - not sure what it is Cancer Maternal Aunt Seizures Maternal Aunt Seizures Maternal Uncle Seizures Brother Social History Tobacco Use Smoking status: Former Packs/day: 1.50 Years: 1.00 Pack years: 1.50 Types: Cigarettes Quit date: 02/14/2022 Years since quittin.8 Smokeless tobacco: Never Vaping Use Vaping Use: current everyday user Substances: Flavoring Substance Use Topics Alcohol use: No Drug use: No Comment: previously used cocaine - last usage was about a year ago PHYSICAL EXAM BP 128/80 Pulse 80 Resp 16 Wt 133.8 kg (295 lb) LMP 07/28/2017 (Approximate) BMI 50.64 kg/m? General Appearance: well appearing, in no acute distress, alert Pysch: mood and affect broad and appropriate Skin: Skin color, texture, turgor normal for age; Eyes: conjunctiva pink and moist, no icterus, sclera white, non-injected Neck: Thyroid normal size and symmetric without palpable nodules, No adenopathy Lungs: Lungs clear to auscultation. No wheezing, rhonchi, rales. Heart: RRR without murmur, gallop, or rubs. No ectopy Abdomen: Abdomen soft, non-tender. Bowel sounds normal. No masses, organomegaly Neurological: G (more content not included)... Normal [facility] Comprehensive metabolic 2000 panelon 01-06-2023 Albumin [Mass/Vol] 4.6 g/dL Normal 3.9-4.9 [facility] Comment on above: Order Comment: Speci men Type: BLOOD SPECIMEN Ordering Facility: [facility] Address: [address] [place] [address] Performed By: #### 1 798-8, 65980-4, 3040-3, 3016-3 #### [facility] CLIA [id number] [address] [place] [address] [place] ALP [Catalytic activity/Vol] 103 U/L Normal 34-123 [facility] Comment on above: Order Comment: Speci men Type: BLOOD SPECIMEN Ordering Facility: [facility] Address: [address] [place] [address] Performed By: #### 1 798-8, 35365-6, 3040-3, 3016-3 #### [facility] CLIA [id number] [address] [place] [address] [place] ALT [Catalytic activity/Vol] 14 U/L Normal 7-38 [facility] Comment on above: Order Comment: Speci men Type: BLOOD SPECIMEN Ordering Facility: [facility] Address: [address] [place] [address] Performed By: #### 1 798-8, 75729-2, 3040-3, 3016-3 #### [facility] CLIA [id number] [address] [place] [address] [place] Anion gap [Moles/Vol] 15 mmol/L Normal 9-18 [facility] Comment on above: Order Comment: Speci men Type: BLOOD SPECIMEN Ordering Facility: [facility] Address: [address] [place] [address] Performed By: #### 1 798-8, 13766-0, 3040-3, 3016-3 #### [facility] CLIA [id number] [address] [place] [address] [place] AST [Catalytic activity/Vol] 14 U/L Normal 13-35 [facility] Comment on above: Order Comment: Speci men Type: BLOOD SPECIMEN Ordering Facility: [facility] Address: [address] [place] [address] Performed By: #### 1 798-8, 57256-8, 3040-3, 3016-3 #### [facility] CLIA [id number] [address] [place] [address] [place] Bilirubin [Mass/Vol] 0.5 mg/dL Normal 0.2-1.3 [facility] Comment on above: Order Comment: Speci men Type: BLOOD SPECIMEN Ordering Facility: [facility] Address: [address] [place] [address] Performed By: #### 1 798-8, 88984-5, 3040-3, 3016-3 #### [facility] CLIA [id number] [address] [place] [address] [place] Calcium [Mass/Vol] 9.3 mg/dL Normal 8.5-10.2 [facility] Comment on above: Order Comment: Speci men Type: BLOOD SPECIMEN Ordering Facility: [facility] Address: [address] [place] [address] Performed By: #### 1 798-8, 57001-2, 3040-3, 3016-3 #### [facility] CLIA [id number] [address] [place] [place] [id number] [place] Chloride [Moles/Vol] 100 mmol/L Normal 97-105 [facility] Comment on above: Order Comment: Speci men Type: BLOOD SPECIMEN Ordering Facility: [facility] Address: [address] [place] [address] Performed By: #### 1 798-8, 07806-0, 3040-3, 3016-3 #### [facility] CLIA [id number] [address] [place] [place] [id number] [place] CO2 [Moles/Vol] 22 mmol/L Normal 22-30 [facility] Comment on above: Order Comment: Speci men Type: BLOOD SPECIMEN Ordering Facility: [facility] Address: [address] [place] [address] Performed By: #### 1 798-8, 53742-0, 3040-3, 3016-3 #### [facility] CLIA [id number] [address] [place] [address] [place] Creatinine [Mass/Vol] 1.16 mg/dL High 0.58-0.96 [facility] Comment on above: Order Comment: Speci men Type: BLOOD SPECIMEN Ordering Facility: [facility] Address: [address] [place] [address] Performed By: #### 1 798-8, 56538-3, 3040-3, 3016-3 #### [facility] CLIA [id number] [address] [place] [id number] [place] ESTIMATED GLOMERULAR FILTRATION RATE 64 mL/min/1.73m??? Normal >=60 [facility] Comment on above: Order Comment: Speci men Type: BLOOD SPECIMEN Ordering Facility: [facility] Address: [address] [place] [address] Result Comment: Annie mated Glomerular Filtration Rate (eGFR) is calculated using the 2020 CKD-EPI creatinine equation. This equation utilizes serum creatinine, sex, and age as parameters. The creatinine assay has traceable calibration to isotope dilution-mass spectrometry. Refer to KDIGO guidelines for clinical interpretation. In patients with unstable renal function, e.g. those with acute kidney injury, the eGFR may not accurately reflect actual GFR. Performed By: #### 1 798-8, 74841-8, 3040-3, 3016-3 #### [facility] CLIA [id number] [facility] [place] [address] [place] Glucose [Mass/Vol] 84 mg/dL Normal 74-99 [facility] Comment on above: Order Comment: Spectim bruner Type: BLOOD SPECIMEN Ordering Facility: [facility] Address: [address] [address] Result Comment: The [place] Diabetes Association (ADA) provides guidance for cutoff values for fasting glucose and random glucose. The ADA defines fasting as no caloric intake for at least 8 hours. Fasting plasma glucose results between 100 to 125 mg/dL indicate increased risk for diabetes (prediabetes). Fasting plasma glucose results greater than or equal to 126 mg/dL meet the criteria for diagnosis of diabetes. In the absence of unequivocal hyperglycemia, results should be confirmed by repeat testing. In a patient with classic symptoms of hyperglycemia or hyperglycemic crisis, random plasma glucose results greater than or equal to 200 mg/dL meet the criteria for diagnosis of diabetes. Reference: Standards of Medical Care in Diabetes 2016, [place] Diabetes Association. Diabetes Care. 2016.39(Suppl 1). Performed By: #### 1 798-8, 25046-4, 3040-3, 6-3 #### [facility] CLIA [id number] [address] [place], [place] [address] [place] Potassium [Moles/Vol] 4.2 mmol/L Normal 3.7-5.1 [facility] Comment on above: Order Comment: Jamar bruner Type: BLOOD SPECIMEN Ordering Facility: [facility] Address: [address] [id number] Performed By: #### 1 798-8, 65935-5, 3040-3, 3016-3 #### [facility] CLIA [id number] [address] [address] [place] Protein [Mass/Vol] 8.0 g/dL Normal 6.3-8.0 [facility] Comment on above: Order Comment: Speci men Type: BLOOD SPECIMEN Ordering Facility: [facility] Address: [address] [place] [address] Performed By: #### 1 798-8, 60652-5, 3040-3, 3016-3 #### [facility] CLIA [id number] [address] [place], [place] [address] [place] Sodium [Moles/Vol] 137 mmol/L Normal 136-144 [facility] Comment on above: Order Comment: Speci men Type: BLOOD SPECIMEN Ordering Facility: [facility] Address: [address] [place] [address] Performed By: #### 1 798-8, 05962-4, 3040-3, 3016-3 #### [facility] CLIA [id number] [address] [place], [place] [address] [place] Urea nitrogen [Mass/Vol] 10 mg/dL Normal 7-21 [facility] Comment on above: Order Comment: Speci men Type: BLOOD SPECIMEN Ordering Facility: [facility] Address: [address] [place] [address] Performed By: #### 1 798-8, 92512-6, 3040-3, 3016-3 #### [facility] [place] [id number] [address] [place], [place] [address] [place] HbA1c (Bld)on 01-06-2023 Average glucose Estimated from glycated hemoglobin (Bld) [Mass/Vol] 103 mg/dL Normal [facility] Comment on above: Order Comment: Speci men Type: BLOOD SPECIMEN Ordering Facility: [facility] Address: [address] [place] [address] Result Comment: eAG: (Estimated average glucose) is a calculated value from HgbA1c and is food products sales representative of the average blood glucose level in the last 2-3 month period. Performed By: #### 5 5454-3 #### [facility] CLIA [id number] [address] [place] [address] [place] HbA1c (Bld) [Mass fraction] 5.2 % Normal 4.3-5.6 [facility] Comment on above: Order Comment: Jamar bruner Type: BLOOD SPECIMEN Ordering Facility: [facility] Address: [address] [place] [address] Result Comment: [place] Diabetes Association guidelines indicate that patients with HgbA1c in the range 5.7-6.4% are at increased risk for development of diabetes, and intervention by lifestyle modification may be beneficial. HgbA1c greater or equal to 6.5% is considered diagnostic of diabetes. Performed By: #### 5 5454-3 #### [facility] CLIA [id number] [address] [place] [address] [place] Lipase SerPl-cCncon 01-06-20 23 Lipase [Catalytic activity/Vol] 15 U/L Low 16-61 [facility] Comment on above: Order Comment: Jamar bruner Type: BLOOD SPECIMEN Ordering Facility: [facility] Address: [address] [place] [address] Performed By: #### 1 798-8, 64257-8, 3040-3, 3016-3 #### [facility] [place] [id number] [address] [place] [address] [place] TSH SerPl-aCncon 01-06-2023 TSH Qn 4.290 m[IU]/L High 0.270-4.200 [facility] Comment on above: Order Comment: Jamar bruner Type: BLOOD SPECIMENOrdering Facility: [facility] Address: [address] [place] [address] Result Comment: If t he patient is , TSH reference range varies by gestational period: First Trimester (weeks 9-12): 0.180-2.990 mIU/L Second Trimester: 0.110-3.980 mIU/L Third Trimester: 0.480-4.710 mIU/L Dario Hope et al. A Practical Approach for the Verifications and Determination of Site- and Trimester-Specific Reference Intervals for Thyroid Function tests in . Thyroid, 2019:29:3:412-420. Morales Guillory, et al. 2017 Guidelines of the [place] Thyroid Association for the Diagnosis and Management of Thyroid Disease during and the . Thyroid, 2017:27:3:315-389. Performed By: #### 1 798-8, 78484-1, 3040-3, 3016-3 ####[facility] [id number] [address] STATES OF [facility] Ankle min 3 Viewson 09-20-20 Ankle min 3 Views [facility] Imaging Services [address] [place] [address] Ankle min 3 Views MR#: [id number] Acct: [id number] Name: ANYMALMaryMARIELLA ADEEL Rep #: [id number] : 1990 F 32 From: Pillo Fitzpatrick PCP: Dr. Selena Robert MD Status: REG ER Study: Ankle min 3 Views Date of Exam: 09/20/22 Exam# [id number] Ordering Dr: Sudarshan Andre DO STUDY: XR Ankle Min 3 Views REASON FOR EXAM: Female, 32 years old. ANKLE PAIN TECHNIQUE: XR Ankle Min 3 Views RIGHT COMPARISON: None. FINDINGS: Normal visualized distal tibia and fibula. Normal medial and lateral malleoli. Normal tibiotalar articulation and ankle mortise. The visualized subtalar, talonavicular, calcaneocuboid and tarsal articulations are normal. There is a plantar calcaneal spur. There is soft tissue swelling around the ankle. RAD/Ankle min 3 Views IMPRESSION: There is soft tissue swelling. Electronically Signed: Pillo Gaming MD at 20:59 EDT , CC: Dr. Selena Robert MD; Dr. Sudarshan Andre DO Drapery Installer: Signed Normal [facility] Emergency Department Summary on 09-20-2022 Emergency Department Summary [facility] Medical Records Department [address] [place] [address] Emergency Department Summary 09/20/22 MR#: [id number] Acct: [id number] Name: MARIELLA CHRISTINE Rep #: [id number] : 1990 32 From: Sudarshan Andre DO PCP: Dr. Selena Robert MD Status:DEP ER Location: ED HPI History of Present Illness Chief Complaint: Lower Extremity Injury Narrative Narrative: 32-year-old female here with right foot and ankle pain after mechanical fall. Patient states she hit her head but did not lose consciousness no vomiting no focal weakness or numbness. Denies his tory of surgery to the right ankle. Patient states the pain is constant, severe without alleviating exacerbating features. [facility] Medical History (Updated 09/20/22 @ 21:[address] Sudarshan Andre DO) Anxiety and depression Arthritis Asthma Bipolar 1 disorder Choledocholithiasis Depression GERD (gastroesophageal reflux disease) History of alcohol abuse History of substance abuse Hypertension Hypocalcemia IBS (irritable bowel syndrome) Memory loss Neuropathy Schizophrenia Seasonal allergies Seizures Suicidal thoughts Home Medications omeprazole 20 mg capsule,delayed release 20 mg PO DAILY GERD 03/10/18 [History Last Taken 09/11/20] haloperidol 5 mg tablet 5 mg PO DAILY psych 06/15/19 [History Last Taken 08/05/21 08:30] albuterol sulfate 90 mcg/actuation aerosol inhaler (Ventolin HFA) 2 puff inhalation Q6H PRN Shortness Of Breath 11/25/20 [History Last Taken Unknown] folic acid 1 mg tablet 1 mcg PO DAILY supplement 06/06/21 [History Last Taken 07/08/21] xvcqjbfv-ikeakp-OS- thonzonm 3.3 mg-3 mg-10 mg-0.5 mg/mL ear drops,susp (Cortisporin-TC) 4 drp LEFT EAR TID 7 days #10 mL 06/07/21 [Rx Last Taken Unknown] trazodone 100 mg tablet 100 mg PO QHS sleep 07/08/21 [History Last Taken 07/08/21] haloperidol decanoate 50 mg/mL intramuscular solution 50 mg IM QMONTH psych 07/09/21 [History Last Taken 06/27/21] ibuprofen 400 mg tablet 400 mg PO Q4H PRN PRN Pain 1-10 Or Fever #0 tabs 07/10/21 [Rx Last Taken Unknown] oxycodone 5 mg tablet 5 - 10 mg PO Q6H PRN pain 5 days #20 tabs 07/10/21 [Rx Last Taken Unknown] Allergy/AdvReac Type Severity Reaction Status Date / Time Bleach (Sodium Hypochlorite) Allergy Mild rash Verified 09/20/22 18:50 acetaminophen Allergy breaks Verified 09/20/22 18:50 out in hives and throat swells shut bacitracin Allergy Unknown Verified 09/20/22 18:50 Latex, Natural Rubber Allergy Rash Verified 09/20/22 18:50 Penicillins Allergy Unknown Verified 09/20/22 18:50 Family History Aunt Diabetes Father Myocardial infarction, Onset Age: 50 Grandmother Myocardial infarction, Onset Age: 70 Other Alcoholism Anxiety and depression Arthritis Asthma Breast cancer CVA (cerebral vascular accident) Cancer Colon cancer Heart disease Hyperlipemia Hypertension Kidney disease Liver disease Osteoporosis Thyroid disorder Surgical History History of breast biopsy History of hernia repair History of removal of cyst S/P ERCP S/P laparoscopic cholecystectomy Social History Smoking Status: Former smoker Tobacco: How many years used: 22 alcohol intake: current substance use type: marijuana what type of physical activity do you participate in: walking and bicycling ROS ROS ED ROS Narrative Constitutional: Denies fever HEENT: Denies sore throat Neck: Denies neck pain Cardiovascular: Denies chest pain, syncope Respiratory: Denies shortness of breath GI: Denies nausea vomiting or abdominal pain : Denies changes in urinary habits Musculoskeletal: Right foot pain Neurologic: Denies numbness weakness or loss of sensation Skin denies rash EXAM Physical Exam Narrative Exam Narrative: Nursing triage notes reviewed, Vital signs reviewed Constitutional: please see mdm HENT: MMM Eyes: Pupils equal round and reactive to light, Extraocular muscles intact Neck: No stridor, no JVD, full neck ROM Lungs: Clear to auscultation, No wheezing or rales. No increased work of breathing, no conversational dyspnea, no accessory muscle use, no nasal flaring. No respiratory distress noted Heart: Regular rate and rhythm, No murmurs, No rubs and No gallops, 2+ distal pulses (radial, femoral, posterior tibial) in all extremities Abdomen: Soft, there is no tenderness, rigidity, rebound or guarding, no obvious peritoneal signs, no palpable pulsatile abdominal masses, no auscultated abdominal bruit : No CVAT Extremities: No obvious deformity, TTP over right ankle and dorsal surface of right foot Neuro: Intact sensation L1-S1 dermatomal distributions. Intact 5/5 strength in hip flexion (T12- L3). Knee extensi (more content not included)... Normal [facility] Foot min 3 Viewson 2 Foot min 3 Views [facility] Imaging Services [address] [place] [address] Foot min 3 Views MR#: [id number] Acct: [id number] Name: MARIELLA CHRISTINE Rep #: [id number] : 1990 F 32 From: Pillo Fitzpatrick PCP: Dr. Selena Robert MD Status: REG ER Study: Foot min 3 Views Date of Exam: 09/20/22 Exam# [id number] Ordering Dr: Sudarshan Andre DO EXAM: XR RIGHT FOOT COMPLETE, 3 OR MORE VIEWS CLINICAL INDICATION: foot pain TECHNIQUE: Frontal, lateral and oblique views of the right foot. This report was created using [employer] report generation technology. COMPARISON: None. FINDINGS: BONES/JOINTS: There is a calcaneal spur. No acute fracture. No subluxation. Normal alignment. Preservation of the joint space. No sclerotic or destructive changes observed. SOFT TISSUES: Soft tissue swelling around the ankle and foot. No radiopaque foreign body. RAD/Foot min 3 Views IMPRESSION: Soft tissue swelling around the ankle and foot. Electronically Signed: Pillo Gaming MD at 21:00 EDT , CC: Dr. Selena Robert MD; Dr. Sudarshan Andre DO [employer]per[employer] Installer: Signed Normal [facility] UA DIP, URINE (POC)on 2021 BILIRUBIN UA (POCT) Negative Negative [facility] CLARITY UA (POCT) Clear [facility] COLOR UA (POCT) Yellow [facility] GLUCOSE UA (POCT) Negative Negative mg/dL [facility] HEMOGLOBIN/BLOOD UA (POCT) Negative Negative [facility] KETONE UA (POCT) Negative Negative mg/dL [facility] LEUKOCYTES UA (POCT) Negative Negative [facility] NITRITE UA (POCT) Negative Negative [facility] PH UA (POCT) 6.0 4.5 - 8.0 [facility] Protein Ql (U) Negative Negative mg/dL [facility] SPECIFIC GRAVITY UA (POCT) 1.010 1.005 - 1.030 [facility] UROBILINOGEN UA (POCT) 0.2 E.U./dL Andreea l E.U./dL [facility] HCG, Quantitative Blon 07-15 HCG, Quantitative Bl <0.6 Normal <5.0 [facility] Comment on above: Performed By: #### H CGQT #### [facility] Routine Lab [address] [id number] Vital Signs Date Time Vital Sign Value Performing Clinician Facility 03-21-2025 20:40-0400 Diastolic blood pressure 96 mm[Hg] [facility] 03-21-2025 20:40-0400 Heart rate 83 /min [facility] 03-21-2025 20:40-0400 Respiratory rate 18 /min [facility] 03-21-2025 20:40-0400 SaO2% (BldA) [Mass fraction] 97 % [facility] 03-21-2025 20:40-0400 Systolic blood pressure 156 mm[Hg] [facility] 03-21-2025 17:47-0400 Body temperature 96.91 [degF] [facility] 03-21-2025 17:08-0400 Body height 162.6 cm [facility] 03-21-2025 17:08-0400 Body mass index (BMI) [Ratio] 46.69 kg/m2 [facility] 03-21-2025 17:08-0400 Body weight 123.38 kg [facility] 10-04-2024 14:56-0500 Body temperature 97.59 [degF] Ranulfo Elizondo MD Work Phone: [facility] 10-04-2024 14:56-0500 Diastolic blood pressure 87 mm[Hg] Ranulfo Elizondo MD Work Phone: [facility] 10-04-2024 14:56-0500 Heart rate 85 /min Ranulfo Elizondo MD Work Phone: [facility] 10-04-2024 14:56-0500 Respiratory rate 18 /min Ranulfo Elizondo MD Work Phone: [facility] 10-04-2024 14:56-0500 SaO2% (BldA) [Mass fraction] 95 % Ranulfo Elizondo MD Work Phone: [facility] 10-04-2024 14:56-0500 Systolic blood pressure 140 mm[Hg] Ranulfo Elizondo MD Work Phone: [facility] 10-04-2024 10:58-0500 Body mass index (BMI) [Ratio] 47.72 kg/m2 Ranulfo Elizondo MD Work Phone: [facility] 10-04-2024 10:58-0500 Body weight 126.1 kg Ranulfo Elizondo MD Work Phone: [facility] 08-13-2024 17:58-0400 Body temperature 98.01 [degF] Gamaliel Mo DO Work Phone: [facility] 08-13-2024 17:58-0400 Diastolic blood pressure 95 mm[Hg] Gamaliel Mo DO Work Phone: [facility] 08-13-2024 17:58-0400 Heart rate 76 /min Gamaliel Mo DO Work Phone: [facility] 08-13-2024 17:58-0400 SaO2% (BldA) [Mass fraction] 97 % Gamaliel Mo DO Work Phone: [facility] 08-13-2024 17:58-0400 Systolic blood pressure 117 mm[Hg] Gamaliel Mo DO Work Phone: [facility] 07-02-2024 11:55-0400 Body mass index (BMI) [Ratio] 47.89 kg/m2 Vanesa Saldivar DO Work Phone: [facility] 07-02-2024 11:55-0400 Body temperature 96.69 [degF] Vanesa Saldivar DO Work Phone: [facility] 07-02-2024 11:55-0400 Body weight 126.55 kg Vanesa Saldivar DO Work Phone: [facility] 07-02-2024 11:55-0400 Diastolic blood pressure 95 mm[Hg] Vanesa Saldivar DO Work Phone: [facility] 07-02-2024 11:55-0400 Heart rate 84 /min Vanesa Saldivar DO Work Phone: [facility] 07-02-2024 11:55-0400 Respiratory rate 20 /min Vanesa Saldivar DO Work Phone: [facility] 07-02-2024 11:55-0400 SaO2% (BldA) [Mass fraction] 97 % Vanesa Saldivar DO Work Phone: [facility] 07-02-2024 11:55-0400 Systolic blood pressure 149 mm[Hg] Vanesa Saldivar DO Work Phone: [facility] 07-02-2024 11:55-0400 Body height 162.6 cm Vanesa Saldivar DO Work Phone: [facility] 06-22-2024 13:26-0400 Body temperature 98.2 [degF] [facility] 06-22-2024 13:26-0400 Diastolic blood pressure 90 mm[Hg] [facility] 06-22-2024 13:26-0400 Heart rate 71 /min [facility] 06-22-2024 13:26-0400 Respiratory rate 18 /min [facility] 06-22-2024 13:26-0400 SaO2% (BldA) [Mass fraction] 96 % [facility] 06-22-2024 13:26-0400 Systolic blood pressure 142 mm[Hg] [facility] 04-13-2024 21:57-0400 Body temperature 97.5 [degF] Claudette Urbano MD Work Phone: [facility] 04-13-2024 21:57-0400 Diastolic blood pressure 97 mm[Hg] Claudette Urbano MD Work Phone: [facility] 04-13-2024 21:57-0400 Heart rate 80 /min Claudette Urbano MD Work Phone: [facility] 04-13-2024 21:57-0400 Respiratory rate 16 /min Claudette Urbano MD Work Phone: [facility] 04-13-2024 21:57-0400 SaO2% (BldA) [Mass fraction] 98 % Claudette Urbano MD Work Phone: [facility] 04-13-2024 21:57-0400 Systolic blood pressure 140 mm[Hg] Claudette Urbano MD Work Phone: [facility] 03-19-2024 00:15-0400 Diastolic blood pressure 84 mm[Hg] Law Camilo MD Work Phone: [facility] 03-19-2024 00:15-0400 Heart rate 91 /min Law Camilo MD Work Phone: [facility] 03-19-2024 00:15-0400 Respiratory rate 18 /min Law Camilo MD Work Phone: [facility] 03-19-2024 00:15-0400 SaO2% (BldA) [Mass fraction] 97 % Law Camilo MD Work Phone: [facility] 03-19-2024 00:15-0400 Systolic blood pressure 132 mm[Hg] Law Camilo MD Work Phone: [facility] 03-18-2024 21:34-0400 Body temperature 98.1 [degF] Law Camilo MD Work Phone: [facility] 10-04-2023 22:14-0500 Diastolic blood pressure 60 mm[Hg] Aby Baltazar MD Work Phone: [facility] 10-04-2023 22:14-0500 Heart rate 74 /min Aby Baltazar MD Work Phone: [facility] 10-04-2023 22:14-0500 Respiratory rate 18 /min Aby Baltazar MD Work Phone: [facility] 10-04-2023 22:14-0500 SaO2% (BldA) [Mass fraction] 100 % Aby Baltazar MD Work Phone: [facility] 10-04-2023 22:14-0500 Systolic blood pressure 104 mm[Hg] Aby Baltazar MD Work Phone: [facility] 10-04-2023 14:25-0500 Body temperature 97.81 [degF] Aby Baltazar MD Work Phone: [facility] 10-04-2023 14:25-0500 Body height 162.6 cm Aby Baltazar MD Work Phone: [facility] 10-04-2023 14:25-0500 Body mass index (BMI) [Ratio] 48.92 kg/m2 Aby Baltazar MD Work Phone: [facility] 10-04-2023 14:25-0500 Body weight 129.28 kg Aby Baltazar MD Work Phone: [facility] 09-20-2022 18:47-0400 Body height 162.56 cm [facility] Work Phone: 09-20-2022 18:47-0400 Body mass index (BMI) [Ratio] 44.6 kg/m2 [facility] Work Phone: 09-20-2022 18:47-0400 Body temperature 97.9 [degF] [facility] Work Phone: 09-20-2022 18:47-0400 Body weight 117.93 kg [facility] Work Phone: 09-20-2022 18:47-0400 Diastolic blood pressure 92 mm[Hg] [facility] Work Phone: 09-20-2022 18:47-0400 Heart rate 93 /min [facility] Work Phone: 09-20-2022 18:47-0400 Respiratory rate 14 /min [facility] Work Phone: 09-20-2022 18:47-0400 SaO2% (BldA) [Mass fraction] 99 % [facility] Work Phone: 09-20-2022 18:47-0400 Systolic blood pressure 130 mm[Hg] [facility] Work Phone: 03-07-2022 14:56-0400 Body weight 135.63 kg Kylah Older MOLD UNLOADER.ON SITE NURSE Work Phone: [facility] 03-07-2022 14:56-0400 Diastolic blood pressure 80 mm[Hg] Kylah Older MOLD UNLOADER.ON SITE NURSE Work Phone: [facility] 03-07-2022 14:56-0400 Heart rate 80 /min Kylha Older MOLD UNLOADER.ON SITE NURSE Work Phone: [facility] 03-07-2022 14:56-0400 Respiratory rate 16 /min Kylah Older MOLD UNLOADER.ON SITE NURSE Work Phone: [facility] 03-07-2022 14:56-0400 Systolic blood pressure 126 mm[Hg] Kylah Older MOLD UNLOADER.ON SITE NURSE Work Phone: [facility] Encounters Encounter Date Encounter Type Care Provider Facility Start: 03-21-2025 End: 03-21-2025 Emergency department patient visit [facility] Comment on above: Moderate left ankle sprain, initial encounter (Primary Dx) Start: 12-05-2024 End: 12-06-2024 ambulatory LEX DEVINE [facility] Start: 10-04-2024 End: 10-04-2024 Emergency department patient visit Ranulfo Elizondo MD Work Phone: [facility] Comment on above: Encounter for medica l screening examination (Primary Dx) Start: 09-12-2024 End: 09-12-2024 ambulatory Hal Scott [facility] Start: 08-13-2024 End: 08-13-2024 Office outpatient visit 15 minutes Gamaliel Mo DO Work Phone: [facility] Comment on above: Viral URI with cough (Primary Dx); Acute cough; Chronic dyspnea; Muscular aches; Diffuse arthralgia; Bee sting allergy; Does not have primary care provider Start: 08-13-2024 End: 08-13-2024 ambulatory GAMALIEL [facility] Start: 07-02-2024 End: 07-02-2024 Emergency department patient visit Vanesa Saldivar DO Work Phone: [facility] Comment on above: Chest pain, unspecif ied type (Primary Dx); Dizziness Start: 06-22-2024 End: 06-22-2024 Emergency department patient visit [facility] Start: 06-09-2024 Emergency department patient visit [facility] Facility:[facility] Start: 04-13-2024 End: 04-13-2024 Emergency department patient visit Claudette Urbano MD Work Phone: [facility] Comment on above: Syncope, unspecified syncope type (Primary Dx); Closed head injury, initial encounter Start: 03-26-2024 ambulatory Danielle Lorenzana RN [facility] Start: 03-26-2024 Patient encounter procedure Danielle Lorenzana RN [facility] Start: 03-18-2024 End: 03-19-2024 Emergency department patient visit Law Camilo MD Work Phone: [facility] Comment on above: Abdominal pain, gene ralized (Primary Dx); Adrenal adenoma, unspecified laterality; Pneumobilia Start: 10-04-2023 End: 10-04-2023 Emergency department patient visit Aby Baltazar MD Work Phone: [facility] Comment on above: Left upper quadrant abdominal pain (Primary Dx) Start: 04-20-2023 End: 04-20-2023 Emergency department patient visit DR GISSEL SAEED DO Facility:[facility] Start: 02-21-2023 End: 02-21-2023 Subsequent hospital visit by physician [facility] Ed Xr Portable [facility] X-Ray Comment on above: Arrived Start: 01-10-2023 Telephone encounter Selena evangelista MD Work Phone: [facility] Comment on above: Patient Update Start: 01-09-2023 Refill Selena Fitzpatrick Work Phone: [facility] Comment on above: Refill Request Results Start: 01-06-2023 End: 01-07-2023 ambulatory [facility] Facility:[facility] Start: 01-06-2023 End: 01-07-2023 [facility] Facility:[facility] Start: 09-20-2022 End: 09-21-2022 Emergency department patient visit Sudarshan Thai Facility:[facility] Start: 09-20-2022 End: 09-20-2022 Emergency department patient visit [facility] Start: 07-22-2022 Refill Kylah Bruno APRN, .CNP Work Phone: [facility] Comment on above: Refill Request Start: 03-07-2022 End: 03-07-2022 Patient encounter procedure Kylah Bruno MOLD UNLOADERCASANDRA Work Phone: [facility] [place] Comment on above: Annual physical exam (Primary Dx); Gastroesophageal reflux disease without esophagitis; Epigastric pain; Rhinitis, unspecified type; Chronic left hip pain; Class 3 severe obesity with body mass index (BMI) of 50.0 to 59.9 in adult, unspecified obesity type, unspecified whether serious comorbidity present (HCC); Dysuria; Abnormal menstruation; Possible ; Lipid screening Procedures Date Procedure Procedure Detail Performing Clinician Start: 03-21-2025 End: 03-21-2025 Radiologic examination tibia & fibula 2 views Lois Moy PA-C Work Phone: Start: 12-05-2024 Lipid 1996 panel - Serum or Plasma Start: 10-04-2024 SARS-CoV-2 (COVID-19) Ag [Presence] in Respiratory specimen by Rapid immunoassay Walt Mckenna MD Work Phone: Start: 10-04-2024 Comprehensive metabolic panel Walt Mckenna MD Work Phone: Start: 10-04-2024 End: 10-04-2024 Drug test def 1-7 classes Walt Mckenna MD Work Phone: Start: 10-04-2024 HCG, RAPID SERUM Walt Mckenna MD Work Phone: Start: 08-13-2024 Sars-cov-2 detection by dna/rna Gamaliel Mo DO Work Phone: Start: 07-02-2024 Basic metabolic panel calcium total Silvio Rosalva PA-C Work Phone: Start: 07-02-2024 Radiologic exam chest single view Silvio Serrano PA-C Work Phone: Start: 07-02-2024 Ecg routine ecg w/least 12 lds trcg only w/o i&r Vanesa Saldivar DO Work Phone: Start: 06-22-2024 Ct angiography chest w/contrast/noncontrast Jose Cruz Silvestre MD Work Phone: Start: 06-22-2024 Basic metabolic panel calcium total Jose Cruz Silvestre MD Work Phone: Start: 06-22-2024 SARS-COV-2, FLU A/B, AND RSV COMBO Jose Cruz Silvestre MD Work Phone: Start: 06-22-2024 Ecg routine ecg w/least 12 lds trcg only w/o i&r Jose Cruz Silvestre MD Work Phone: Start: 04-13-2024 Glucose quantitative blood xcpt reagent strip Claudette Urbano MD Work Phone: Start: 04-13-2024 Basic metabolic panel calcium total Claudette Urbano MD Work Phone: Start: 04-13-2024 Ct cervical spine w/o contrast material Claudette Urbano MD Work Phone: Start: 04-13-2024 Ct head/brain w/o contrast material Claudette Urbano MD Work Phone: Start: 04-13-2024 Ecg routine ecg w/least 12 lds trcg only w/o i&r Claudette Urbano MD Work Phone: Start: 03-18-2024 Ct abdomen & pelvis w/contrast material Minor Bartlett PA-C Work Phone: Start: 03-18-2024 Urinalysis complete panel - Urine Minor Bartlett PA-C Work Phone: Start: 03-18-2024 Urnls dip stick/tablet reagent auto microscopy Minor Bartlett PA-C Work Phone: Start: 03-18-2024 Comprehensive metabolic panel Minor Bartlett PA-C Work Phone: Start: 03-18-2024 HCG, RAPID SERUM Minor Bartlett PA-C Work Phone: Start: 10-04-2023 Ct abdomen & pelvis w/contrast material Yuliana Peck APRN Work Phone: Start: 10-04-2023 End: 10-04-2023 Basic metabolic panel calcium total Ranulfo Elizondo MD Work Phone: Start: 10-04-2023 Urinalysis complete panel - Urine Ranulfo Elizondo MD Work Phone: Start: 10-04-2023 Urnls dip stick/tablet reagent auto microscopy Ranulfo Elizondo MD Work Phone: Start: 02-21-2023 Radex ribs uni w/posteroant ch minimum 3 views Criss Noyola PA-C Work Phone: Start: 09-20-2022 Radiography of ankle Start: 09-20-2022 X-ray of both feet Start: 03-07-2022 Urnls dip stick/tablet rgnt auto w/o microscopy Kylah Bruno MOLD UNLOADER.ON SITE NURSE Work Phone: History of cholecystectomy S/P laparoscopic cholecystectomy Plan of Treatment Date Care Activity Detail Author Start: 2063 RSV Immunization for Adults (1 - 1-dose 75+ series) RSV Immunization for Adults (1 - 1-dose 75+ series) [facility] Start: 2048 RSV Immunization age d 60 or older (1 - 1-dose 60+ series) RSV Immunization aged 60 or older (1 - 1-dose 60+ series) [facility] Start: 2038 Zoster Vaccines (1 of 2) Zoste r Vaccines (1 of 2) [facility] Start: 12-05-2029 Lipid panel Lipid Panel [facility] Start: 07-28-2025 Influenza vaccination Influenz a Vaccine (Season Ended) [facility] Start: 06-05-2025 Depression Monitoring Depression Mon [facility] Start: 07-28-2024 COVID-19 Vaccine ( season) COVID-19 Vaccine ( season) [facility] Start: 07-28-2024 Covid-19 Vaccine ( season) Covid-19 Vaccine ( season) [facility] Start: 07-28-2024 Influenza vaccination S [facility] Start: 05-02-2024 End: 05-02-2024 Patient encounter procedure 05/02/2024 1:20 PM EDT Office Visit [facility] [address] [place] [address] Johanna Bates, MOLD UNLOADER - ON SITE NURSE [address] [facility] [address] [place] [id number] [facility] Start: 07-28-2023 COVID-19 Vaccine ( season) COVID-19 Vaccine (24 season) [facility] Start: 07-28-2023 Influenza vaccination [facility] Start: 03-07-2023 COVID-19 VACCINE (3 - Booster) COVID-19 VACCINE (3 - Booster) [facility] Comment on above: Postponed from 07/16 (Declined at this time) Postponed from 04/10 (Declined at this time) Start: 03-07-2023 HEPATITIS C SCREENING HEPATITIS C SC REENING [facility] Comment on above: Postponed from 04/18 (Declined at this time) Start: 03-07-2023 HIV SCREENING HIV SCREENING [facility] Comment on above: Postponed from 04/18 (Declined at this time) Start: 03-07-2023 HPV TESTING HPV TESTING [facility] Comment on above: Postponed from 04/18 (Declined at this time) Start: 03-07-2023 PAP TESTING PAP TESTING [facility] Comment on above: Postponed from 04/18 (Declined at this time) Start: 03-07-2023 Urine microalbumin profile DTA P,TDAP,TD (1 - Tdap) [facility] Comment on above: Postponed from 04/18 (Declined at this time) Start: 02-06-2023 End: 04-08-2023 Thyrotropin [Units/volume] in Serum or Plasma TSH BLD Lab Routine Abnormal TSH Expected: 02/06/2023 (Approximate), Expires: 04/08/2023 [facility] Work Phone: Comment on above: Expected: 02/06/2023 (Approximate), Expires: 04/08/2023 Start: 02-06-2023 End: 04-08-2023 Thyroxine (T4) free [Mass/volume] in Serum or Plasma T4 FREE/FREE THYROX Lab Routine Abnormal TSH Expected: 02/06/2023 (Approximate), Expires: 04/08/2023 [facility] Work Phone: Comment on above: Expected: 02/06/2023 (Approximate), Expires: 04/08/2023 Start: 02-06-2023 End: 04-08-2023 Triiodothyronine (T3) [Mass/volume] in Serum or Plasma T3 BLD Lab Routine Abnormal TSH Expected: 02/06/2023 (Approximate), Expires: 04/08/2023 [facility] Work Phone: Comment on above: Expected: 02/06/2023 (Approximate), Expires: 04/08/2023 Start: 07-28-2022 Influenza vaccination C [facility] Start: 03-07-2022 End: 05-07-2022 CBC W Auto Differential panel - Blood CBC + DIFF Lab Routine Annual physical exam Expected: 03/07/2022, Expires: 05/07/2022 [facility] Work Phone: Comment on above: Expected: 03/07/2022 , Expires: 05/07/2022 Start: 03-07-2022 End: 05-07-2022 Comprehensive metabolic 2000 panel - Serum or Plasma COMP METABOLIC PANEL Lab Routine Annual physical exam Lipid screening Class 3 severe obesity with body mass index (BMI) of 50.0 to 59.9 in adult, unspecified obesity type, unspecified whether serious comorbidity present (HCC) Expected: 03/07/2022, Expires: 05/07/2022 [facility] Work Phone: Comment on above: Expected: 03/07/2022 , Expires: 05/07/2022 Start: 03-07-2022 End: 05-07-2022 LIPID PANEL BASIC LIPID PANEL BASIC Lab Routine Lipid screening Class 3 severe obesity with body mass index (BMI) of 50.0 to 59.9 in adult, unspecified obesity type, unspecified whether serious comorbidity present (HCC) Expected: 03/07/2022, Expires: 05/07/2022 [facility] Work Phone: Comment on above: Expected: 03/07/2022 , Expires: 05/07/2022 Start: 04-10-2021 COVID-19 VACCINE (3 - Booster) COVID-19 VACCINE (3 - Booster) [facility] Start: 04-10-2021 COVID-19 Vaccine (3 - Moderna series) COVID-19 Vaccine (3 - Moderna series) [facility] Start: 2018 HPV TESTING HPV TESTING [facility] Start: 2018 Screening for malign ant neoplasm of cervix [facility] Start: 2009 PAP TESTING PAP TESTING [facility] Start: 2009 Screening for malign ant neoplasm of cervix [facility] Start: 2007 DTaP/Tdap/Td Vaccine s (1 - Tdap) DTaP/Tdap/Td Vaccines (1 - Tdap) [facility] Start: 2007 Hepatitis B Vaccine (1 of 3 - 19+ 3-dose series) Hepatitis B Vaccine (1 of 3 - 19+ 3-dose series) [facility] Start: 2007 Hepatitis B Vaccines (1 of 3 - 19+ 3-dose series) Hepatitis B Vaccines (1 of 3 - 19+ 3-dose series) [facility] Start: 2007 Pneumococcal Vaccine : Pediatrics (0 to 5 Years) and At-Risk Patients (6 to 49 Years) (1 of 2 - PCV) Pneumococcal Vaccine: Pediatrics (0 to 5 Years) and At-Risk Patients (6 to 49 Years) (1 of 2 - PCV) [facility] Start: 2007 Urine microalbumin profile [facility] Start: 2006 Hepatitis C screening Hepatitis C [facility] Start: 2006 HEPATITIS C SCREENING HEPATITIS C [facility] Start: 2006 HIV SCREENING HIV SCREENING [facility] Start: 2006 HIV screening HIV Screening [facility] Start: 2001 Varicella vaccination Varicell a Vaccines (1 of 2 - 13+ 2-dose series) [facility] Start: 2000 Depression Monitoring Depression Mon [facility] Start: 2000 [facility] Screening [facility] Start: 1994 Pneumococcal Vaccine : Pediatrics (0 to 5 Years) and At-Risk Patients (6 to 64 Years) (1 - PCV) Pneumococcal Vaccine: Pediatrics (0 to 5 Years) and At-Risk Patients (6 to 64 Years) (1 - PCV) [facility] Start: 1994 Pneumococcal Vaccine : Pediatrics (0 to 5 Years) and At-Risk Patients (6 to 64 Years) (1 of 2 - PCV) Pneumococcal Vaccine: Pediatrics (0 to 5 Years) and At-Risk Patients (6 to 64 Years) (1 of 2 - PCV) [facility] Start: 1989 MMR Vaccines (1 of 1 - Standard series) MMR Vaccines (1 of 1 - Standard series) [facility] Start: 1989 Varicella vaccination Varicell a Vaccines (1 of 2 - 2-dose childhood series) [facility] Start: 1988 COVID-19 Vaccine (#1) COVID-19 Vacci ne (#1) [facility] Start: 1988 HEPATITIS B (1 of 3 - 3-dose series) HEPATITIS B (1 of 3 - 3-dose series) [facility] Start: 1988 Hepatitis B Vaccines (1 of 3 - 3-dose series) Hepatitis B Vaccines (1 of 3 - 3-dose series) [facility] Start: 1988 HIV screening HIV Screening [facility] Start: 1988 Lipid panel Lipid Panel [facility] End: 06-22-2024 ECG 12 lead ECG 12 lead CV ECG STAT Once for 1 Occurrences starting 06/22/2024 until 06/22/2024 [facility] Work Phone: Comment on above: Once for 1 Occurrenc es starting 06/22/2024 until 06/22/2024 Patient Education ED Foot Contus ion ED Ankle Sprain (Adult) [facility] Work Phone: Patient referral [facility] Work Phone: Urine test visual color cmprsn meths HCG QUAL UR B/O Lab Routine Possible Ordered: 03/07/2022 [facility] Work Phone: Comment on above: Ordered: 03/07/2022 End: 10-04-2023 US scan of abdominal aorta [facility] Work Phone: Comment on above: Once for 1 Occurrenc es starting 10/04/2023 until 10/04/2023 End: 04-06-2023 XR HIP GENERAL 3V PELV/AP/LAT LEFT XR HIP GENERAL 3V PELV/AP/LAT LEFT Radiology Routine Chronic left hip pain 1 Occurrences starting 03/07/2022 until 04/06/2023 [facility] Work Phone: Comment on above: 1 Occurrences starti ng 03/07/2022 until 04/06/2023 [facility] Immun[facility] Immunization Date Immunization Notes Care Provider Fa cility 02-13-2021 Covid (Moderna) [facility] Work Phone: 01-25-2021 Covid (Moderna) [facility] Work Phone: Payers Date Payer Category Payer Private Health Insurance [employer] A ETNA QHP EXCHANGE [id number] 2024-Present [phone] [address] [place] [address] Exchange Plan [id number] 2024 Private Health Insurance 101 [id number] 2023 Unknown SUZANNE CLARKEETTER EXCHANGE [id number] 2023-Present [address] [place] [address] Exchange Plan [id number] 2022 Medicaid HMO [employer]DM [id number] 2022 Medicaid [id number] 2022 Self-pay [id number] 2016 Unknown [id number] 2016 Medicaid [employer] [facility] [id number] 2016-Present [phone] [address] [place] [address] Medicaid [id number] 2016 Medicaid [id number] 1988 Unknown [id number] Unknown [id number] Social History Date Type Detail Facility Start: 08-27-2016 End: 12-05-2024 Tobacco smoking status NHIS Ex-smoker [facility] Work Phone: Start: 02-14-2021 End: 02-14-2022 History of tobacco use Current smoker [facility] Work Phone: Start: 08-27-2016 End: 12-06-2024 Cigarettes smoked current (pack per day) - Reported 1.5 [facility] Start: 08-27-2016 End: 12-05-2024 Tobacco use and exposure Smokeless tobacco non-user [facility] Work Phone: Start: 03-07-2022 Alcohol intake Current non-drinker of alcohol (finding) [facility] Start: 1990 Sex Assigned At Not on file [facility] Start: 02-18-2022 End: 02-28-2022 Exposure to SARS-CoV-2 (event) Unable to assess [facility] Work Phone: Start: 02-14-2021 End: 02-14-2022 History of tobacco use Cigarette Smoker [facility] Work Phone: Start: 09-20-2022 Tobacco smoking status DCIS Unknown if ever smoked [facility] Work Phone: Start: 07-27-2020 Rare [facility] Work Phone: Start: 07-27-2020 None [facility] Work Phone: Start: 07-27-2020 Alone [facility] Work Phone: Start: 08-16-2019 Cigarettes [facility] Work Phone: Start: 1990 Sex Assigned At Female [facility] Work Phone: Start: 02-21-2023 End: 03-18-2024 Tobacco smoking status NHIS Smokes tobacco daily [facility] Start: 02-21-2023 End: 12-05-2024 Alcohol intake Ex-drinker (finding) [facility] Start: 02-21-2023 Alcohol Comment sober since nov 2022 [facility] Start: 02-11-2023 End: 02-21-2023 Exposure to SARS-CoV-2 (event) Not sure [facility] Start: 10-04-2023 End: 12-06-2024 Alcohol Use Disorder Identification Test - Consumption [AUDIT-C] [facility] How often to you hav e a drink containing alcohol? Never [facility] How many standard dr inks containing alcohol do you have on a typical day? Patient does not drink [facility] Start: 02-21-2023 Sex Female (finding) [facility] Medical Equipment Procedure Code Equipment Code Equipment Original Text Equipment Identifier Dates Total cholecystectomy with exploration of common bile duct FILM HISTORIAN,CLIP 5MM LIGAMAX FDA Start: 07-09-2021 ERCP (endoscopic retrograde cholangiopancreatograph y) RX STENT/10 X 5CM FDA Start: 07-10-2021 Clinical Notes 03-07-2022 to 03-21-2025 Discharge InstructionsAttachmentsMaashley Winter PA-C - 03/21/2025 5:04 PM EDJami Winter PA-C - 03/21/2025 5:04 PM EDTDaalana Abdul - 10/04/2024 3:19 PM ESTDischarge InstructionsAttachments Note Date & Type Note Facility 03-21-2025 Hospital Discharg e instructions Lois Winter PA-C - 03/21/2025 8:18 PM EDT You were seen in the emergency department today for evaluation of an injury to the left ankle. All of your x-rays are reassuring, and do not show any evidence of broken bones. I believe you likely sprained your ankle. I am going to send you with a boot that I would like you to continue to wear and bear weight only as tolerated and take and be seen in follow-up by orthopedics. A referral has been placed today. Continue to closely monitor your symptoms and return to the emergency department should anything change or worsen. The following attachments cannot be sent through Care Everywhere.Ankle Sprain Discharge Instructions (Chinese)documented in this encounter [facility] 03-21-2025 Emergency department Note EMERGENCY DEPARTMENT ENCOUNTER Pt Name: Mariella Christine Birthdate 1990 Date of evaluation: 03/21/2025 ED Provider: Lois Winter PA-C CHIEF COMPLAINT Chief Complaint Patient presents with Ankle Pain Pt states she fell and injured her L ankle and is having difficulty walking on it HISTORY OF PRESENT ILLNESS (Location/Symptom, Timing/Onset, Context/Setting, Quality, Duration, Modifying Factors, Severity) Note limiting factors. I wore appropriate PPE for the entirety of this encounter. HPI Mariella Christine is a 34 y.o. female who [...] - Food Insecurity Present (09/12/2024) Received from [facility] Hunger Vital Sign Worried About Running Out [...] Session: Patient declined Stress: Patient Declined (12/06/2024) [employer] [place] [employer] - Occupational Stress Questionnaire [...] 1747] Temp Heart Rate Resp BP 36.1 C (96.9 F) (!) 42 18 (!) 138/95 SpO2 Temp [...] (!) 42 86 Resp: 18 Temp: 36.1 C (96.9 F) TempSrc: Temporal SpO2: 98% 99% Weight: 123 [...] follow-up with her primary care provider, did place referral to orthopedic sports medicine for further evaluation and management as an outpatient. Strict ER return precautions were discussed, patient was comfortable and agreeable with plans for discharge. Discharged in stable condition with stable vital signs. Work note provided. FINAL IMPRESSION 1. Moderate left ankle sprain, initial encounter DISPOSITION Discharge 03/21/2025 08:17:58 PM Shared decision making preformed. PATIENT REFERRED TO: [facility] EMERGENCY DEPT [address] [place] [phone] As needed, If symptoms worsen [facility] [address] [phone] DISCHARGE MEDICATIONS: New Prescriptions ACETAMINOPHEN (TYLENOL EXTRA [...] Emergency Medicine Provider Lois Winter PA-C 03/21/252038 documented in this encounter [facility] 03-21-2025 Physician Emergency department Note EMERGENCY DEPARTMENT ENCOUNTER Pt Name: Mariella Christine Birthdate 1990 Date of evaluation: 03/21/2025 ED Provider: Lois Winter PA-C CHIEF COMPLAINT Chief Complaint Patient presents with Ankle Pain Pt states she fell and injured her L ankle and is having difficulty walking on it HISTORY OF PRESENT ILLNESS (Location/Symptom, Timing/Onset, Context/Setting, Quality, Duration, Modifying Factors, Severity) Note limiting factors. I wore appropriate PPE for the entirety of this encounter. HPI Mariella Christine is a 34 y.o. female who [...] - Food Insecurity Present (09/12/2024) Received from [facility] Hunger Vital Sign Worried About Running Out [...] Session: Patient declined Stress: Patient Declined (12/06/2024) [employer] [place] [employer] - Occupational Stress Questionnaire [...] SCREENINGS PHYSICAL EXAM ED Triage Vitals [03/21/25 8277] Temp Heart Rate Resp BP 36.1 C (96.9 F) (!) 42 18 (!) 138/95 SpO2 Temp [...] (!) 42 86 Resp: 18 Temp: 36.1 C (96.9 F) TempSrc: Temporal SpO2: 98% 99% Weight: 123 [...] her follow-up with her primary care provider, [facility] place referral to orthopedic sports medicine for further evaluation and management as an outpatient. Strict ER return precautions were discussed, patient was comfortable and agreeable with plans for discharge. Discharged in stable condition with stable vital signs. Work note provided. FINAL IMPRESSION 1. Moderate left ankle sprain, initial encounter DISPOSITION Discharge 03/21/2025 08:17:58 PM Shared decision making preformed. PATIENT REFERRED TO: [facility] EMERGENCY DEPT [address] [place] [phone] As needed, If symptoms worsen [facility] Orthopedics [address] [phone] DISCHARGE MEDICATIONS: New Prescriptions ACETAMINOPHEN (TYLENOL EXTRA [...] Emergency Medicine Provider Lois Winter PA-C 03/21/252038 [facility] 12-06-2024 Note Discharge Summary Mariella Christine : 1990 ADMIT DATE: 12/05/2024 DISCHARGE DATE: 12/06/2024 PRIMARY CARE PHYSICIAN: No primary care provider on file. VISIT STATUS: Admission CODE STATUS: Full Code DISCHARGE DIAGNOSES: 1.) Schizophrenia 2.) Cannabis use disorder 3.) PTSD HOSPITAL COURSE: Mariella was admitted to [facility] for psychiatric stabilization of chronic schizophrenia with delusional thoughts. She presented to the emergency department believing that she was and in labor. She was evaluated by ED staff, had no signs of labor and her hCG was negative. She was admitted to [facility] for psychiatric assessment. On initial assessment, she accepted that she was not . I went over lab results with her. I do believe that she probably is chronically delusional. She did not appear to be a danger to herself or others and most likely is at her baseline mental state. She will follow-up with [facility] health. She denied suicidal or homicidalideation, [...] Complexity: follow up within 7-14 calendar days (51478) [] Severe Complexity: follow up within 7 calendar days (87634) FOLLOW UP TESTING, PENDING RESULTS OR REFERRALS AT TRANSITIONAL CARE VISIT: [x] Yes [] No PENDING STUDIES: none DISPOSITION: Home Follow up with [facility] [address] [place], [place] [id number] Go to Walk in hours-Mon 8am to 2pm, Tue/Thurs 8am to 3pm, and Fri 8am to 12pm. Please bring photo ID and insurance information. DISCHARGE TIME: > 30 minutes SIGNED: Lex Devine MD 12/06/2024, 10:45 AM [facility] 12-06-2024 Note Department of Psychi atry History and Physical - Adult CHIEF COMPLAINT: [...] schizophrenia and she was therefore admitted to [facility]. On exam, she is fairly cooperative at [...] are . Reports she follows up with [facility] and has a history of schizophrenia, [...] has Parkinson's dementia. She follows up with [facility]. She reports 1 admission in the past though cannot recall when, reports 1 suicide attempt over 10 years ago. Past Medical History: History reviewed. No pertinent past medical history. Past Surgical History: History reviewed. No pertinent surgical history. Allergies: Latex, Pcn [penicillins], and Amoxicillin Family History: No family history on file. Social History: Reports she is from [place] and grew up in [place]. She lives with her cousin. She is [...] to person, place, time/date, and situation MEMORY: r (more content not included)... [facility] 12-06-2024 Note Problem: Sensory Per ceptual Alteration as Evidenced by Goal: Cooperates with admission process Outcome: Progressing Goal: Free from restraint events Outcome: Progressing [facility] 10-04-2024 Emergency department Note Pt was taken to room 46 and ready to be discharged [facility] 10-04-2024 Emergency department Note Pt was taken to room 46 and ready to be discharged Pt was given the phone. Pt up to the restroom. Psych at bedside. Pt up to the restroom. Pt walked to restroom with no issues PT. WAS CHANGED INTO HOSPITAL GOWN,SKIN ASSESSMENT COMPLETED BY NURSING. PT WANDED AND ALL BELONGINGS INVENTORIED AND LOCKED IN CABINET BY PROTECTIVE SERVICE. Pt has 1 bag. Emergency Department Encounter [facility] EMERGENCY DEPT Patient: Mariella Christine : 1990 Date of Evaluation: 10/04/2024 ED Provider: Walt Mckenna MD TRIAGE NOTE I independently examined and evaluated Mariella Christine. I personally saw & evaluated the [...] details and disposition Brief HPI: In brief, Mariella Christine is a 34 y.o. female that [...] voices and having auditory hallucinations and that Fabien has been speaking to her. No obvious [...] [employer] Walt Mckenna MD 10/04/24 1119 Emergency Department Encounter [facility] EMERGENCY DEPT Patient: Mariella Christine : 1990 Date of Evaluation: 10/04/2024 ED Supervising Physician: Ranulfo Elizondo MD I personally saw Mariella Christine and made/approved the management plan and take responsibility for the patient management. In brief, Mariella Christine is a 34 y.o. that presents [...] acute distress. Psych: Awake alert and oriented 3. Pleasant and cooperative. Skin: Warm and dry. [...] 95 89 Resp: 16 16 Temp: 36.1 C (97 F) (!) 35.9 C (96.6 F) TempSrc: Temporal Temporal SpO2: 96% 97% Weight: [...] are mis-transcribed.) Ranulfo Elizondo MD Acute Care [facility] Ranulfo Elizondo MD 10/04/24 1237 I did not participate in the care of this patient. Vanesa White MD Resident 10/04/24 1513 Cosigned by Ranulfo Elizondo MD at 10/04/2024 5:34 PM EST EMERGENCY DEPARTMENT ENCOUNTER Pt Name: Mariella Christine Birthdate 1990 Date of evaluation: 10/04/2024 [...] to new voice in her head names fabien HISTORY OF PRESENT ILLNESS (Location/Symptom, Timing/Onset, Context/Setting, Quality, Duration, Modifying Factors, Severity) Note limiting factors. I wore appropriate PPE for the entirety of this encounter. HPI Mariella Christine is a 34 y.o. with past [...] within 12 hours or as directed by ., Starting Mon02/21/2023, Print paliperidone (Invega) 6 MG [...] Insecurity: Food Insecurity Present (09/12/2024) [facility] Vital Sign Worried About Running Out of Food in the Last Year: Often true Ran Out of Food in the Last Year: Sometimes true SCREENINGS PHYSICAL EXAM ED Triage Vitals [10/04/24 1055] Temp Heart Rate Resp BP 36.1 C (97 F) 95 16 (!) 148/102 SpO2 Temp Source [...] 85 Resp: 16 16 18 Temp: 36.1 C (97 F) (!) 35.9 C (96.6 F) 36.4 C (97.6 F) TempSrc: Temporal Temporal Temporal SpO2: 96% 97% [...] Provider Jeffrey Evans MD Resident 10/04/24 1532 Cosigned by Ranulfo Elizondo MD at 10/04/2024 5:34 PM EST documented in this encounter [facility] 10-04-2024 Hospital Discharg e instructions Jeffrey Evans MD - 10/04/2024 3:07 PM EST Please return to the emergency department if you develop suicidal thoughts homicidal thoughts or wanting to harm others documented in this encounter [facility] 10-04-2024 Emergency department Note Pt was given the phone. [facility] 10-04-2024 Emergency department Note Pt up to the restroom. [facility] 10-04-2024 Emergency department Note Psych at bedside. [facility] 10-04-2024 Emergency department Note Pt up to the restroom. [facility] 10-04-2024 Emergency department Note Pt walked to restroom with no issues [facility] 10-04-2024 Note NOTE: This result is for medical treatment only. Analysis performed using non-forensic procedures. [facility] 10-04-2024 Emergency department Note PT. WAS CHANGED INTO HOSPITAL GOWN,SKIN ASSESSMENT COMPLETED BY NURSING. PT WANDED AND ALL BELONGINGS INVENTORIED AND LOCKED IN CABINET BY PROTECTIVE SERVICE. Pt has 1 bag. [facility] 10-04-2024 History of Presen t illness Narrative Department of Field Tech Emergency Psychiatric Evaluation CHIEF COMPLAINT: Chief Complaint Patient presents with Psychiatric Evaluation Pt sent by therapist for crisis evaluation. Pt she she does not want to but is unable to make people around her satisfied. Pt states she has multiple personalities. I am everywhere but nowhere I feel like I'm always losing denies HI. Pt admits to new voice in her head names fabien HISTORY OF PRESENT ILLNESS: The patient is a 34 y.o.female with significant past medical history of MRDD, schizoaffective disorder bipolar type, PTSD, depression, anxiety, multiple personalities who arrived by self transportation with a chief complaint of wanting a psychiatric evaluation. Pt reports that she saw her outpatient therapist through [facility] yesterday and they made her promise that [...] stress she developed a new personality named Fabien. Patient reports that for the past year and a half she has had no multiple personalities. She states that she lost about 300 pounds 1.5 years ago and when she did that all 17 of her extra personalities went away so she was troubled when she developed this new personality named Fabien last week. Patient is adamant that she has no safety concerns. She denies SI and HI and denies paranoia. She does endorse hearing the voices of her new personality named Fabien. He tells her that she should get [...] psychiatrist, has a therapist, and has a continuous pillowcase cutter through [facility]. I called [facility] to speak with her therapist. Her therapist was unavailable. I spoke with the head banquet waiter/waitress and left a voicemail for her therapist to set her up with [facility] PHP/IOP. REVIEW OF SYSTEMS: Medical [...] care for the above psychiatric illness with [facility]. Previous psychiatric hospitalizations: one admission she states to [facility] about 3 years ago Previous diagnoses: [...] Pulse: 89 Resp: 16 Temp: (!) 35.9 C (96.6 F) SpO2: 97% Physical Examination: Constitutional: well developed, [...] and multiple personalities who presented to the [facility] ED voluntarily with a concern for wanting [...] discharge with outpatient follow up. I called [facility] and left a message for her to obtain PHP/IOP services through them. Escalation of care, including admission to inpatient psychiatry, was considered. Pt does NOT require involuntary psychiatric admission at this time. Pt declined voluntary admission. Pt was referred to [facility] PHP/IOP. Diagnostic Impression: MRDD Schizoaffective [...] screening RECOMMENDATIONS: Disposition: Home with follow-up at [facility] Management of the patient was discussed with Dr. Evans, ED provider. Workup: no additional recommendations Medications: Continue home psychiatric medications as prescribed Pt seen and discussed with attending psychiatrist, Dr. Carrillo, who agrees with above recommendations. Cosigned by Vanesa Carrillo MD at 10/04/2024 4:31 PM EST Associated attestation - Vanesa Carrillo MD - 10/04/2024 4:31 PM EST I saw and evaluated the patient, participating in the dave portions of the service. I reviewed the resident s note. I agree with the resident s findings and plan, with additions as below: [...] and resiliency and can continue this at [facility]. She is agreeable to return for worsening symptoms and call [facility] to schedule with their IOP Monday. Vanesa Carrillo MD documented in this encounter [facility] 10-04-2024 Physician Emergency department Note Emergency Department Encounter [facility] EMERGENCY DEPT Patient: Mariella Christine : 1990 Date of Evaluation: 10/04/2024 ED Provider: Walt Mckenna MD TRIAGE NOTE I independently examined and evaluated Mariella Christine. I personally saw & evaluated the [...] details and disposition Brief HPI: In brief, Mariella Christine is a 34 y.o. female that [...] voices and having auditory hallucinations and that Fabien has been speaking to her. No obvious [...] for clarification Walt Mckenna MD Acute Care [facility] Walt Mckenna MD 10/04/24 1113 [place] [employer] Phone: 10-04-2024 Physician Emergency department Note Emergency Department Encounter [facility] EMERGENCY DEPT Patient: Mariella Christine : 1990 Date of Evaluation: 10/04/2024 ED Supervising Physician: Ranulfo Elizondo MD I personally saw Mariella Christine and made/approved the management plan and take responsibility for the patient management. In brief, Mariella Christine is a 34 y.o. that presents [...] acute distress. Psych: Awake alert and oriented 3. Pleasant and cooperative. Skin: Warm and dry. [...] 95 89 Resp: 16 16 Temp: 36.1 C (97 F) (!) 35.9 C (96.6 F) TempSrc: Temporal Temporal SpO2: 96% 97% Weight: [...] occasionally words are mis-transcribed.) Ranulfo Elizondo MD [facility] Ranulfo Elizondo MD 10/04/24 1237 [employer] Phone: 10-04-2024 Physician Emergency department Note I did not participate in the care of this patient. Vanesa White MD Resident 10/04/24 1513 Cosigned by Ranulfo Elizondo MD at 10/04/2024 5:34 PM EST [employer] Phone: 10-04-2024 Physician Emergency department Note EMERGENCY DEPARTMENT ENCOUNTER Pt Name: aMriella Christine Birthdate 1990 Date of evaluation: 10/04/2024 [...] to new voice in her head names fabien HISTORY OF PRESENT ILLNESS (Location/Symptom, Timing/Onset, Context/Setting, Quality, Duration, Modifying Factors, Severity) Note limiting factors. I wore appropriate PPE for the entirety of this encounter. HPI Mariella Christine is a 34 y.o. with past [...] Insecurity: Food Insecurity Present (09/12/2024) [facility] Vital Sign Worried About Running Out of Food in the Last Year: Often true Ran Out of Food in the Last Year: Sometimes true SCREENINGS PHYSICAL EXAM ED Triage Vitals [10/04/24 1055] Temp Heart Rate Resp BP 36.1 C (97 F) 95 16 (!) 148/102 SpO2 Temp Source [...] 85 Resp: 16 16 18 Temp: 36.1 C (97 F) (!) 35.9 C (96.6 F) 36.4 C (97.6 F) TempSrc: Temporal Temporal Temporal SpO2: 96% 97% [...] Provider Jeffrey Evans MD Resident 10/04/24 1532 Cosigned by Ranulfo Elizondo MD at 10/04/2024 5:34 PM EST [facility] 09-12-2024 Note HNO ID: [id number] Author: HAL SCOTT DTR Service: ? Author Type: Air Brush Decorator Type: Progress Notes Filed: 09/12/2024 11:07 Note Text: [facility] General Visit Service Date: 09/12/2024 Service Time: 11:00 AM Location: [facility] [address] [place] [id number] Dept: [phone] Dept Is this the patient's first visit: Yes. Referral from Community: Outside Organization PCP: Selena Robert MD Is the client an employee: No [...] minutes SIGNATURE: Hal Scott DTR PATIENT NAME: Mariella Christine DATE: September 12, 2024 TIME: 11:00 AM [facility] 09-12-2024 History of Presen t illness Narrative [facility] General Visit Service Date: 09/12/2024 Service Time: 11:00 AM Location: [facility] [address] [place], [place] [id number] Dept: [phone] Dept Is this the patient's first visit: Yes. Referral from Community: Outside Organization PCP: Selena Robert MD Is the client an employee: No [...] minutes SIGNATURE: Hal Scott DTR PATIENT NAME: Mariella Christine DATE: September 12, 2024 TIME: 11:00 AM documented in this encounter [facility] 08-13-2024 History of Presen t illness Narrative Subjective: Chief Complaint Patient presents with Cough Barking cough that she's not sure when started. Think it's related to her smoking. Ibuprofen for inflammation. Patient: Mariella Christine is a 34 y.o. female Patient presenting to urgent care with a 1 week duration of a barky cough. Patient reports that her cousin has been mentioning to her for the past 1 week that she has a barky cough. She is requesting COVID, flu, and strep testing. Patient states she has a past medical history of dementia, Parkinson disease, and COPD. No PFTs on file for review. Prior chest CTs on file negative for emphysema by radiology read. Patient reports chronic dyspnea and myalgias. She believes her dyspnea is related to smoking tobacco and THC. Reports wheezing on exertion. Negative home COVID testing 2-3 weeks ago. Patient states her joints hurt, and she is contemplating going to the ER for pain control. She does not have a PCP. Requesting Epi pen for bee sting allergy. Review of Systems Constitutional: Negative for fatigue and fever. Respiratory: +shortness of breath (chronic). +cough (barky). Cardiovascular: Negative for chest pain, palpitations and leg swelling. Gastrointestinal: Negative for abdominal pain, blood in stool, constipation and diarrhea. Neurological: Negative for dizziness, light-headedness and headaches. Allergies Allergen Reactions Latex Pcn [Penicillins] Current Outpatient Medications on File Prior to Visit Medication Sig Dispense Refill amantadine (Symmetrel) 100 MG capsule busPIRone (Buspar) 30 MG tablet famotidine (Pepcid) 20 MG tablet Take 1 [...] 1 tablet by mouth daily at bedtime. divalproex (Depakote) 250 MG EC tablet No current facility-administered medications on file prior to visit. History reviewed. No pertinent past medical history. 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 Uvula midline. No pharyngeal swelling, oropharyngeal exudate, posterior oropharyngeal erythema or uvula swelling. Tonsils: No tonsillar exudate or tonsillar abscesses. Constitutional: Oriented to person, place, and time. Appears well-developed and well-nourished. No distress. Eyes: EOM are normal. No scleral icterus. Neck: Normal range of motion. Neck supple. Cardiovascular: Normal rate, regular rhythm, normal heart sounds and intact distal pulses. No murmur heard. Pulmonary/Chest: Effort normal and breath sounds normal. No respiratory distress. No wheezes, rales, or rhonchi. Abdominal: Soft. Bowel sounds are normal. Exhibits no distension and no masses. No hepatosplenomegaly. No tenderness. No rebound and no guarding. Musculoskeletal: Normal range of motion. No edema. Lymphadenopathy: No cervical adenopathy. Neurological: Alert and oriented to person, place, and time. No cranial nerve deficits. Gait normal. Skin: Skin is warm and dry. Psychiatric: Normal mood and affect. Speech is normal and behavior is normal. Judgment and thought content normal. Assessment 1. Viral URI with cough 2. Acute cough 3. Chronic dyspnea 4. Muscular aches 5. Diffuse arthralgia 6. Bee sting allergy 7. Does not have primary care provider Plan Diagnoses and all orders for this visit: Viral URI with cough - AMB POC COVID-19 COV - predniSONE (Deltasone) 20 MG tablet; Take 2 tablets (40 mg) by mouth daily for 5 days. - albuterol 108 (90 Base) MCG/ACT inhaler; Inhale 2 puffs every 4 hours as needed for wheezing or shortness of breath. Acute cough - AMB POC COVID-19 COV - predniSONE (Deltasone) 20 MG tablet; Take 2 tablets (40 mg) by mouth daily for 5 days. - albuterol 108 (90 Base) MCG/ACT inhaler; Inhale 2 puffs every 4 hours as needed for wheezing or shortness of breath. Chronic dyspnea - AMB POC COVID-19 COV - predniSONE (Deltasone) 20 MG tablet; Take 2 tablets (40 mg) by mouth daily for 5 days. - albuterol 108 (90 Base) MCG/ACT inhaler; Inhale 2 puffs every 4 hours as needed for wheezing or shortness of breath. - Ambulatory referral to Family Practice; Future Muscular aches - AMB POC COVID-19 COV - predniSONE (Deltasone) 20 MG tablet; Take 2 tablets (40 mg) by mouth daily for 5 days. Diffuse arthralgia - AMB POC COVID-19 COV - predniSONE (Deltasone) 20 MG tablet; Take 2 tablets (40 mg) by mouth daily for 5 days. Bee sting allergy - EPINEPHrine (Epipen) 0.3 MG/0.3ML injection syringe; Inject 0.3 mL (0.3 mg) as directed Once as needed for anaphylaxis for up to 1 dose. Inject into upper leg. Call 911 after use. Does not have primary care provider - Ambulatory referral to Family Practice; Future [id number] COVID-negative. No evidence of COPD or emphysema on chart review. Will treat with a prednisone burst given #4 and #5 to avoid patient going to the ER. Epi refill and albuterol trial per patient preference/request. Offered patient referral to primary care which she accepted. Advised patient there is no indication for flu or strep testing. Discussed that symptoms could be due to RSV or even croup. No indication for chest x-ray or any antibiotics. Gamaliel Mo, DO 08/13/24 6:45 PM If symptoms do not improve, worsen, or new symptoms develop, see PCP for further evaluation. (Please note: Portions of this note were completed with a voice recognition program, [employer] for [employer]. Efforts were made to edit the dictations but occasionally words and phrases are mis-transcribed.) documented in this encounter [facility] 08-13-2024 Instructions Gamaliel Mo DO - 08/13/2024 6:10 PM EDT Thank you for coming to [facility] for your medical care! The following attachments cannot be sent through Care Everywhere.Viral Upper Respiratory Infection Discharge Instructions, Adult (Chinese)documented in this encounter [facility] 07-02-2024 Emergency department Note Patient not in the ERP at this time Lashonda Gerber RN 07/02/24 1601 [facility] 07-02-2024 Emergency department Note Patient not in the ERP at this time Lashonda Gerber RN 07/02/24 1601 ER Air Pollution Inspector attempting to draw d-dimer but patient not in ERP; RN also attempting to locate patient Lashonda Gerber RN 07/02/24 1600 Pt refused fluids. States I have a DR apt at 3. Pt has received PO meds. Theresa Parkinson LPN 07/02/24 1314 This nurse attempted for IV line x2. Nurse was unsuccessful. Another nurse going to attempt line. Theresa Parkinson LPN 07/02/24 1312 Emergency Department Encounter [facility] EMERGENCY DEPT Patient: Mariella Christine : 1990 Date of Evaluation: 07/02/2024 ED Supervising Physician: Vanesa Saldivar DO I personally evaluated Mariella Christine and made/approved the management plan and take responsibility for the patient management. This will serve as my Supervisory note and shared attestation. I did perform a substantive portion of the visit including all aspects of the Medical Decision Making. I wore appropriate PPE for the entirety of this encounter. In brief, Mariella Christine is a 34 y.o. that presents to the emergency department with chest pain has been intermittent for a month constant for the last 2 weeks. Vomited once during this period of time. Says she had a syncopal episode yesterday. Has a history of DVT in the past. No known history of coronary disease. Focused exam: Vital signs noted please see nurses notes. Well-developed patient sitting in the chair appears well. Normal respiratory pattern without conversational dyspnea or respiratory distress. No obvious musculoskeletal trauma. Moves all extremities equally well. Speech and mental status normal. No gross neurologic deficit. Radial pulses are 2+ and symmetrical. Brief ED course/MDM: HEART score is H0 E0 A0 R1 T0 = 1. Clinical suspicion for PE is low. Cannot exclude PE by PERC criteria. Low risk by Wells criteria. D-dimer has been ordered. Disposition will be dependent upon results of diagnostic studies and reevaluation. Diagnostics interpreted by me: I personally discussed the patient's management with other clinicians: All diagnostic, treatment, and disposition decisions were made by myself in conjunction with the [facility]. For all further details of the patient's emergency department visit, please see their documentation. (Comment: Please note this report has been produced using speech recognition software and may contain errors related to that system including errors in grammar, punctuation, and spelling, as well as words and phrases that may be inappropriate. If there are any questions or concerns please feel free to contact the dictating provider for clarification.) Vanesa Saldivar DO [employer] Vanesa Saldivar DO 07/02/24 1207 EMERGENCY DEPARTMENT ENCOUNTER Pt Name: Mariella Christine Birthdate 1990 Date of evaluation: 07/02/2024 ED Provider: Silvio Serrano PA-C CHIEF COMPLAINT Chief Complaint Patient presents with Chest Pain Pt comes in stating she was having severe CP and dizziness that began today, that she almost fell down the stairs HISTORY OF PRESENT ILLNESS (Location/Symptom, Timing/Onset, Context/Setting, Quality, Duration, Modifying Factors, Severity) Note limiting factors. I wore appropriate PPE for the entirety of this encounter. HPI Mariella Christine is a 34 y.o. female with a history of asthma, DVT, who presents to the emergency department with chief complaint of chest pain, shortness of breath and dizziness for approximately a month. Patient states chest pain and shortness of breath have been intermittent for the last month and is typically worse when laying down flat and with exertion. Around 2 weeks ago became constant and she has been feeling dizzy for the last 2 weeks as well as worse with positional changes. She states she has passed out multiple times after standing up and then felt like she was going to pass out today as well when she was going down the stairs but did not. Denies any head injury or trauma does not take any blood thinners. She describes the chest pain as tight and in the center of her chest and does not radiate. Does not describe the pain as ripping or tearing sensation. States she does have a history of blood clots in the legs when I do not take care of myself and has had been on blood thinners before in the past. States she does have a history of migraines does get occasional headaches but has not had any for the last several days and no vision change, speech changes or hearing changes or paresthesias or weakness. No recent travel, hospitalizations, or surgeries. Does not take any control or hormone replacement. Does smoke cigarettes no alcohol or drug use. Does have a family history of heart disease. No history of hypertension hyperlipidemia or diabetes. Nursing Notes were reviewed. Limitations to history: None Outside historians: None REVIEW OF SYSTEMS Review of Systems Please see HPI for pertinent positives and negatives. All other systems reviewed and negative PAST MEDICAL HISTORY History reviewed. No pertinent past medical history. SURGICAL HISTORY History reviewed. No pertinent surgical history. CURRENT MEDICATIONS Discharge Medication List as of 07/02/2024 4:51 PM CONTINUE these medications which have NOT CHANGED Details lidocaine (Lidoderm) 5 % patch Apply 1 patch topically daily. Remove & discard patch within 12 hours or as directed by , Starting Mon02/21/2023, Print ALLERGIES Latex and Pcn [penicillins] FAMILY HISTORY No family history on file. 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 Cooperative. HEENT: Normocephalic. Atraumatic. No maxillofacial tenderness or tenderness of the skull. Sclera anicteric. Pupils equal round reactive to light. Extra movement intact. No nystagmus. Neck Foscue. Tolerates saliva. No trismus. NECK: Supple. Trachea midline. No midline cervical tenderness supple deformities. No JVD. CARDIO: Normal rate and rhythm with no murmurs gallops or rubs. Distal pulses present and equal in all 4 extremities. Chest pain is reproducible to palpation. No unilateral edema or pitting edema. LUNGS: Respirations unlabored. No tachypnea. No conversational dyspnea. CTAB. ABDOMEN: Soft. Non-distended. Non-tender throughout. No pulsatile mass. No guarding or rigidity. No CVA tenderness. MUSCULOSKELETAL: No acute deformities. Full range of motion in all extremities. SKIN: Warm and dry. NEUROLOGICAL: Alert and oriented x 4. NIH is 0. Cranial nerves II through XII are grossly intact. No gross facial drooping. No pronator drift in upper or lower extremity. Finger-nose and [id number] are normal. No truncal instability. No visual field deficits. No obvious neurologic deficits. Tip Length Checker strength symmetrical. Moves all 4 extremities spontaneously. DIAGNOSTIC RESULTS Procedures/EKG: EKG was reviewed by myself. Physician EKG interpretation can be found in [facility] RADIOLOGY (Per Emergency Physician): X-ray does not show any acute consolidation, infiltrate or pneumothorax. Interpretation per the Radiologist below, if available at the time of this note: XR chest 1 view Final Result No acute abnormality Report Dictated on Electronically Signed By: Rodríguez Kaplan MD Electronically Signed Date/Time: 07/02/2024 12:47 PM EDT ED BEDSIDE ULTRASOUND: Performed by ED Physician - none LABS: Labs Reviewed BASIC METABOLIC PANEL - Abnormal Result Value SODIUM 136 POTASSIUM 3.7 CHLORIDE 105 CARBON DIOXIDE 25 UREA NITROGEN 15 CREATININE 1.17 (*) GLUCOSE 88 CALCIUM 9.2 ANION GAP 7 eGFR 62.1 CBC WITH AUTO DIFFERENTIAL - Abnormal Auto WBC 5.7 RBC 5.32 (*) Hemoglobin 15.9 Hematocrit 46.8 MCV 88.0 MCH 29.9 MCHC 34.0 RDW 12.0 Platelets 113 (*) MPV 12.0 nRBC 0.0 Neutrophils Relative 55.0 Lymphocytes Relative 31.5 Monocytes Relative 10.5 Eosinophils Relative 1.9 Basophils Relative 0.9 Immature Grans % 0.2 Neutrophils Absolute 3.1 Lymphocytes Absolute 1.8 Monocytes Absolute 0.6 Eosinophils Absolute 0.1 Basophils Absolute 0.1 Immature Grans Absolute 0.0 IPF 11 TROPONIN I - Normal TROPONIN I <0.012 Narrative: Patients with high levels of Biotin oral intake (ie >5 mg/day) may have falsely decreased Troponin levels. D-DIMER,QUANTITATIVE All other labs were within normal range or not returned as of this dictation. EMERGENCY DEPARTMENT COURSE and DIFFERENTIAL DIAGNOSIS/MDM: Vitals: Vitals: 07/02/24 1155 07/02/24 1155 BP: (!) 149/95 Pulse: 84 Resp: 20 Temp: (!) 35.9 C (96.7 F) TempSrc: Temporal SpO2: 97% Weight: 127 kg (279 lb) 127 kg (279 lb) Height: 1.626 m (5' 4) Nursing notes and external records reviewed. Patient was last seen in the ED on 06/22/2024 for chest pain and shortness of breath. CT of the chest was obtained at this time which did not show any evidence of PE. Did have a normal troponin and proBNP was slightly elevated at 141 at that time but no other abnormalities. ED care was supervised by Dr. Saldivar who independently examined and evaluated the patient. Please see their attestation note for further details. Mariella Christine is a 34 y.o. female who presented to the emergency department for multiple complaints including chest pain shortness of breath that has been ongoing for a month dizziness with positional changes. NIH is 0 and have low suspicion for posterior CVA as a cause of dizziness as this has been ongoing and not acute with no other neurologic complaints. No evidence of head or neck trauma so low suspicion for intracranial hemorrhage or carotid artery dissection. Did have a normal CTA of the chest on 06/22/2024 so lower suspicion for PE. Differential diagnosis included ACS, metabolic derangement, pneumonia, dehydration, vertigo, cardiac arrhythmia. Pt given IV fluids, aspirin and meclizine. Our workup consisted of ordering/reviewing EKG, troponin, CBC, BMP, troponin and D-dimer chest x-ray and showed no leukocytosis or anemia. BMP is without metabolic derangement or significant BRET. Cardiac troponins within normal limits. D-dimer was not collected initially and still pending but lower suspicion for PE as she recently just had a negative CTA of the chest a few days ago. Before I could reevaluate the patient, patient eloped from the emergency department. According to last note, she eloped from the ED as well as her results came back on MyChart before we could talk to her about them and this may be the same case. If she does return the emergency department I will reevaluate the patient and reassess her. Medications sodium chloride 0.9 % bolus 1,000 mL (1,000 mL IntraVENous Not Given 07/02/24 1215) aspirin chewable tablet 324 mg (324 mg Oral Given 07/02/24 1310) meclizine (Antivert) tablet 25 mg (25 mg Oral Given 07/02/24 1311) CONSULTS: None PROCEDURES: Unless otherwise noted below, none Procedures Patients symptoms are consistent with sepsis, severe sepsis, or septic shock (If yes use .sepsiscoremeasure): No FINAL IMPRESSION 1. Chest pain, unspecified type 2. Dizziness DISPOSITION Eloped 07/02/2024 04:38:47 PM PATIENT REFERRED TO: No follow-up provider specified. DISCHARGE MEDICATIONS: Discharge Medication List as of 07/02/2024 4:51 PM (Comment: Please note this report has been produced using speech recognition software and may contain errors related to that system including errors in grammar, punctuation, and spelling, as well as words and phrases that may be inappropriate. If there are any questions or concerns please feel free to contact the dictating provider for clarification.) Silvio Serrano PA-C (electronically signed) Emergency Medicine Provider Silvio Serrano PA-C 07/02/24 1651 documented in this encounter [facility] 07-02-2024 Emergency department Note ER Air Pollution Inspector attempting to draw d-dimer but patient not in ERP; RN also attempting to locate patient Lashonda Gerber RN 07/02/24 1600 [facility] 07-02-2024 Emergency department Note Pt refused fluids. States I have a DR apt at 3. Pt has received PO meds. Theresa Parkinson LPN 07/02/24 1314 [facility] 07-02-2024 Emergency department Note This nurse attempted for IV line x2. Nurse was unsuccessful. Another nurse going to attempt line. Theresa Parkinson LPN 07/02/24 1312 [facility] 07-02-2024 Physician Emergency department Note Emergency Department Encounter [facility] EMERGENCY DEPT Patient: Mariella Christine : 1990 Date of Evaluation: 07/02/2024 ED Supervising Physician: Vanesa Saldivar DO I personally evaluated Mariella Christnie and made/approved the management plan and take responsibility for the patient management. This will serve as my Supervisory note and shared attestation. I did perform a substantive portion of the visit including all aspects of the Medical Decision Making. I wore appropriate PPE for the entirety of this encounter. In brief, Mariella Christine is a 34 y.o. that presents to the emergency department with chest pain has been intermittent for a month constant for the last 2 weeks. Vomited once during this period of time. Says she had a syncopal episode yesterday. Has a history of DVT in the past. No known history of coronary disease. Focused exam: Vital signs noted please see nurses notes. Well-developed patient sitting in the chair appears well. Normal respiratory pattern without conversational dyspnea or respiratory distress. No obvious musculoskeletal trauma. Moves all extremities equally well. Speech and mental status normal. No gross neurologic deficit. Radial pulses are 2+ and symmetrical. Brief ED course/MDM: HEART score is H0 E0 A0 R1 T0 = 1. Clinical suspicion for PE is low. Cannot exclude PE by PERC criteria. Low risk by Wells criteria. D-dimer has been ordered. Disposition will be dependent upon results of diagnostic studies and reevaluation. Diagnostics interpreted by me: I personally discussed the patient's management with other clinicians: All diagnostic, treatment, and disposition decisions were made by myself in conjunction with the [facility]. For all further details of the patient's emergency department visit, please see their documentation. (Comment: Please note this report has been produced using speech recognition software and may contain errors related to that system including errors in grammar, punctuation, and spelling, as well as words and phrases that may be inappropriate. If there are any questions or concerns please feel free to contact the dictating provider for clarification.) Vanesa Saldivar DO [employer] Vanesa Saldivar DO 07/02/24 1207 [employer] Phone: 07-02-2024 Physician Emergency department Note EMERGENCY DEPARTMENT ENCOUNTER Pt Name: Mariella Christine Birthdate 1990 Date of evaluation: 07/02/2024 ED Provider: Silvio Serrano PA-C CHIEF COMPLAINT Chief Complaint Patient presents with Chest Pain Pt comes in stating she was having severe CP and dizziness that began today, that she almost fell down the stairs HISTORY OF PRESENT ILLNESS (Location/Symptom, Timing/Onset, Context/Setting, Quality, Duration, Modifying Factors, Severity) Note limiting factors. I wore appropriate PPE for the entirety of this encounter. HPI Mariella Christine is a 34 y.o. female with a history of asthma, DVT, who presents to the emergency department with chief complaint of chest pain, shortness of breath and dizziness for approximately a month. Patient states chest pain and shortness of breath have been intermittent for the last month and is typically worse when laying down flat and with exertion. Around 2 weeks ago became constant and she has been feeling dizzy for the last 2 weeks as well as worse with positional changes. She states she has passed out multiple times after standing up and then felt like she was going to pass out today as well when she was going down the stairs but did not. Denies any head injury or trauma does not take any blood thinners. She describes the chest pain as tight and in the center of her chest and does not radiate. Does not describe the pain as ripping or tearing sensation. States she does have a history of blood clots in the legs when I do not take care of myself and has had been on blood thinners before in the past. States she does have a history of migraines does get occasional headaches but has not had any for the last several days and no vision change, speech changes or hearing changes or paresthesias or weakness. No recent travel, hospitalizations, or surgeries. Does not take any control or hormone replacement. Does smoke cigarettes no alcohol or drug use. Does have a family history of heart disease. No history of hypertension hyperlipidemia or diabetes. Nursing Notes were reviewed. Limitations to history: None Outside historians: None REVIEW OF SYSTEMS Review of Systems Please see HPI for pertinent positives and negatives. All other systems reviewed and negative PAST MEDICAL HISTORY History reviewed. No pertinent past medical history. SURGICAL HISTORY History reviewed. No pertinent surgical history. CURRENT MEDICATIONS Discharge Medication List as of 07/02/2024 4:51 PM CONTINUE these medications which have NOT CHANGED Details lidocaine (Lidoderm) 5 % patch Apply 1 patch topically daily. Remove & discard patch within 12 hours or as directed by , Starting Mon02/21/2023, Print ALLERGIES Latex and Pcn [penicillins] FAMILY HISTORY No family history on file. 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 Cooperative. HEENT: Normocephalic. Atraumatic. No maxillofacial tenderness or tenderness of the skull. Sclera anicteric. Pupils equal round reactive to light. Extra movement intact. No nystagmus. Neck Foscue. Tolerates saliva. No trismus. NECK: Supple. Trachea midline. No midline cervical tenderness supple deformities. No JVD. CARDIO: Normal rate and rhythm with no murmurs gallops or rubs. Distal pulses present and equal in all 4 extremities. Chest pain is reproducible to palpation. No unilateral edema or pitting edema. LUNGS: Respirations unlabored. No tachypnea. No conversational dyspnea. CTAB. ABDOMEN: Soft. Non-distended. Non-tender throughout. No pulsatile mass. No guarding or rigidity. No CVA tenderness. MUSCULOSKELETAL: No acute deformities. Full range of motion in all extremities. SKIN: Warm and dry. NEUROLOGICAL: Alert and oriented x 4. NIH is 0. Cranial nerves II through XII are grossly intact. No gross facial drooping. No pronator drift in upper or lower extremity. Finger-nose and [id number] are normal. No truncal instability. No visual field deficits. No obvious neurologic deficits. Tip Length Checker strength symmetrical. Moves all 4 extremities spontaneously. DIAGNOSTIC RESULTS Procedures/EKG: EKG was reviewed by myself. Physician EKG interpretation can be found in [facility] RADIOLOGY (Per Emergency Physician): X-ray does not show any acute consolidation, infiltrate or pneumothorax. Interpretation per the Radiologist below, if available at the time of this note: XR chest 1 view Final Result No acute abnormality Report Dictated on Electronically Signed By: Rodríguez Kaplan MD Electronically Signed Date/Time: 07/02/2024 12:47 PM EDT ED BEDSIDE ULTRASOUND: Performed by ED Physician - none LABS: Labs Reviewed BASIC METABOLIC PANEL - Abnormal Result Value SODIUM 136 POTASSIUM 3.7 CHLORIDE 105 CARBON DIOXIDE 25 UREA NITROGEN 15 CREATININE 1.17 (*) GLUCOSE 88 CALCIUM 9.2 ANION GAP 7 eGFR 62.1 CBC WITH AUTO DIFFERENTIAL - Abnormal Auto WBC 5.7 RBC 5.32 (*) Hemoglobin 15.9 Hematocrit 46.8 MCV 88.0 MCH 29.9 MCHC 34.0 RDW 12.0 Platelets 113 (*) MPV 12.0 nRBC 0.0 Neutrophils Relative 55.0 Lymphocytes Relative 31.5 Monocytes Relative 10.5 Eosinophils Relative 1.9 Basophils Relative 0.9 Immature Grans % 0.2 Neutrophils Absolute 3.1 Lymphocytes Absolute 1.8 Monocytes Absolute 0.6 Eosinophils Absolute 0.1 Basophils Absolute 0.1 Immature Grans Absolute 0.0 IPF 11 TROPONIN I - Normal TROPONIN I <0.012 Narrative: Patients with high levels of Biotin oral intake (ie >5 mg/day) may have falsely decreased Troponin levels. D-DIMER,QUANTITATIVE All other labs were within normal range or not returned as of this dictation. EMERGENCY DEPARTMENT COURSE and DIFFERENTIAL DIAGNOSIS/MDM: Vitals: Vitals: 07/02/24 1155 07/02/24 1155 BP: (!) 149/95 Pulse: 84 Resp: 20 Temp: (!) 35.9 C (96.7 F) TempSrc: Temporal SpO2: 97% Weight: 127 kg (279 lb) 127 kg (279 lb) Height: 1.626 m (5' 4) Nursing notes and external records reviewed. Patient was last seen in the ED on 06/22/2024 for chest pain and shortness of breath. CT of the chest was obtained at this time which did not show any evidence of PE. Did have a normal troponin and proBNP was slightly elevated at 141 at that time but no other abnormalities. ED care was supervised by Dr. Saldivar who independently examined and evaluated the patient. Please see their attestation note for further details. Mariella Christine is a 34 y.o. female who presented to the emergency department for multiple complaints including chest pain shortness of breath that has been ongoing for a month dizziness with positional changes. NIH is 0 and have low suspicion for posterior CVA as a cause of dizziness as this has been ongoing and not acute with no other neurologic complaints. No evidence of head or neck trauma so low suspicion for intracranial hemorrhage or carotid artery dissection. Did have a normal CTA of the chest on 06/22/2024 so lower suspicion for PE. Differential diagnosis included ACS, metabolic derangement, pneumonia, dehydration, vertigo, cardiac arrhythmia. Pt given IV fluids, aspirin and meclizine. Our workup consisted of ordering/reviewing EKG, troponin, CBC, BMP, troponin and D-dimer chest x-ray and showed no leukocytosis or anemia. BMP is without metabolic derangement or significant BRET. Cardiac troponins within normal limits. D-dimer was not collected initially and still pending but lower suspicion for PE as she recently just had a negative CTA of the chest a few days ago. Before I could reevaluate the patient, patient eloped from the emergency department. According to last note, she eloped from the ED as well as her results came back on MyChart before we could talk to her about them and this may be the same case. If she does return the emergency department I will reevaluate the patient and reassess her. Medications sodium chloride 0.9 % bolus 1,000 mL (1,000 mL IntraVENous Not Given 07/02/24 1215) aspirin chewable tablet 324 mg (324 mg Oral Given 07/02/24 1310) meclizine (Antivert) tablet 25 mg (25 mg Oral Given 07/02/24 1311) CONSULTS: None PROCEDURES: Unless otherwise noted below, none Procedures Patients symptoms are consistent with sepsis, severe sepsis, or septic shock (If yes use .sepsiscoremeasure): No FINAL IMPRESSION 1. Chest pain, unspecified type 2. Dizziness DISPOSITION Eloped 07/02/2024 04:38:47 PM PATIENT REFERRED TO: No follow-up provider specified. DISCHARGE MEDICATIONS: Discharge Medication List as of 07/02/2024 4:51 PM (Comment: Please note this report has been produced using speech recognition software and may contain errors related to that system including errors in grammar, punctuation, and spelling, as well as words and phrases that may be inappropriate. If there are any questions or concerns please feel free to contact the dictating provider for clarification.) Silvio Serrano PA-C (electronically signed) Emergency Medicine Provider Silvio Serrano PA-C 07/02/24 [id number] [facility] 06-22-2024 Emergency department Note IV removed from left forearm. Shelly Bennett MA 06/22/242001 Shelly Bennett MA 06/22/242002 [facility] 06-22-2024 Emergency department Note IV removed from left forearm. Shelly Bennett MA 06/22/242001 Shelly Bennett MA 06/22/242002 Dr. Silvestre notified that patient is leaving. Kylie Moore RN 06/22/242001 Patient came to RN at [facility] and said she would like to leave since she got all her results in her mychart. Kylie Moore RN 06/22/242000 Emergency Department Encounter [facility] EMERGENCY DEPT Patient: Mariella Christine : 1990 Date of Evaluation: 06/22/2024 ED Provider: Jose Cruz Silvestre MD I saw the patient as the Clinician in Triage and performed a brief history and physical exam, established acuity, and ordered appropriate tests to develop basic plan of care. Patient will be seen by XAVIER, resident and/or my physician partner who will evaluate the patient. I wore appropriate PPE for the entirety of this encounter. Brief HPI: In brief, Mariella Christine is a 34 y.o. that presents with chief complaint of chest pain shortness of breath Chest pain is pleuritic in nature, patient hurts when she goes from Semi-Pereira's to sitting upright, hurts to take a deep breath, hurts to rotate [id number], hurts to cough. Has a cough and wheezing for the last several days. Cough is productive of red sputum which might be blood. Was short of breath for about 20 minutes prior to arrival and has had decreased exercise tolerance over the last several days, gradually worsening i.e. crescendo symptoms. This brought the patient to the emergency department. Has had chest pain for the last 3 days, this is unchanged. There is a family history of heart disease but no personal history of heart disease. Patient is a morbidly obese smoker. She has a history of asthma for which she uses albuterol, she also has a history of pulmonary embolism/PE. She is not sure if she has a history of COPD or not, she says her doctor was suspicious she had COPD but she has never officially been diagnosed with COPD. Afebrile. Not hypoxic. Focused Physical exam: General: Morbidly obese chronically ill adult in mild respiratory distress. Non-toxic appearing HENT: Head NCAT, EOMI with no erythema, swelling or discharge. Oropharyngeal mucus membranes moist, pink, no exudate Neck: Full ROM, supple, no rigidity Cardio: RRR, nl s1 s2 no m/r/g, extremities warm, dry, well perfused, non-edematous, 2+ bilateral radial pulses, 2+ bilateral DP pulses Lungs: CTAB, no wheezes, rales, rhonchi, normal work of breathing Abdomen: Soft, NT, ND, non-rigid, BS x 4 normal Skin: Warm, dry, pink, no rashes, bruising, or lacerations, no petechiae, no purpura Neuro: Patient alert, oriented, able to answer questions and follow commands fur comber II-XII normal Normal 5/5 strength and normal sensation in all four extremities DTRs are normal 2/4 and equal bilaterally Normal coordination in upper and lower extremities Gait not tested, patient is seated in wheelchair at this time Normal speech No facial droop No pronator drift Negative test of skew bilaterally NIHSS = 0 Psych: Nervous and anxious. Verbally consolable and redirectable. Not responding to internal stimuli, not psychotic Plan/MDM: 34-year-old female presents for chest pain shortness of breath coughing up blood Concern for bronchitis, pneumonia, recurrent pulmonary embolism, asthma exacerbation or undiagnosed COPD or combination the above. Will test for COVID-19 RSV influenza, steroids nebulizer CTA chest EKG Patients symptoms are consistent with sepsis, severe sepsis, or septic shock (If yes use .sepsiscoremeasure): No Please see subsequent provider note for further details and disposition (Comment: Please note this report has been produced using speech recognition software and may contain errors related to that system including errors in grammar, punctuation, and spelling as well as words and phrases that may be inappropriate. If there are any questions or concerns please feel free to contact the dictating provider for clarification) Jose Cruz Silvestre MD [employer] Jose Cruz Silvestre MD 06/22/24 1432 documented in this encounter [facility] 06-22-[address] Silvestre notified that patient is leaving. Kylie Moore RN 06/22/242001 [facility] 06-22-2024 Emergency department Note Patient came to RN at [facility] and said she would like to leave since she got all her results in her mychart. Kylie Moore RN 06/22/242000 [facility] 06-22-2024 Physician Emergency department Note Emergency Department Encounter [facility] EMERGENCY DEPT Patient: Mariella Christine : 1990 Date of Evaluation: 06/22/2024 ED Provider: Jose Cruz Silvestre MD I saw the patient as the Clinician in Triage and performed a brief history and physical exam, established acuity, and ordered appropriate tests to develop basic plan of care. Patient will be seen by XAVIER, resident and/or my physician partner who will evaluate the patient. I wore appropriate PPE for the entirety of this encounter. Brief HPI: In brief, Mariella Christine is a 34 y.o. that presents with chief complaint of chest pain shortness of breath Chest pain is pleuritic in nature, patient hurts when she goes from Semi-Pereira's to sitting upright, hurts to take a deep breath, hurts to rotate [id number], hurts to cough. Has a cough and wheezing for the last several days. Cough is productive of red sputum which might be blood. Was short of breath for about 20 minutes prior to arrival and has had decreased exercise tolerance over the last several days, gradually worsening i.e. crescendo symptoms. This brought the patient to the emergency department. Has had chest pain for the last 3 days, this is unchanged. There is a family history of heart disease but no personal history of heart disease. Patient is a morbidly obese smoker. She has a history of asthma for which she uses albuterol, she also has a history of pulmonary embolism/PE. She is not sure if she has a history of COPD or not, she says her doctor was suspicious she had COPD but she has never officially been diagnosed with COPD. Afebrile. Not hypoxic. Focused Physical exam: General: Morbidly obese chronically ill adult in mild respiratory distress. Non-toxic appearing HENT: Head NCAT, EOMI with no erythema, swelling or discharge. Oropharyngeal mucus membranes moist, pink, no exudate Neck: Full ROM, supple, no rigidity Cardio: RRR, nl s1 s2 no m/r/g, extremities warm, dry, well perfused, non-edematous, 2+ bilateral radial pulses, 2+ bilateral DP pulses Lungs: CTAB, no wheezes, rales, rhonchi, normal work of breathing Abdomen: Soft, NT, ND, non-rigid, BS x 4 normal Skin: Warm, dry, pink, no rashes, bruising, or lacerations, no petechiae, no purpura Neuro: Patient alert, oriented, able to answer questions and follow commands fur comber II-XII normal Normal 5/5 strength and normal sensation in all four extremities DTRs are normal 2/4 and equal bilaterally Normal coordination in upper and lower extremities Gait not tested, patient is seated in wheelchair at this time Normal speech No facial droop No pronator drift Negative test of skew bilaterally NIHSS = 0 Psych: Nervous and anxious. Verbally consolable and redirectable. Not responding to internal stimuli, not psychotic Plan/MDM: 34-year-old female presents for chest pain shortness of breath coughing up blood Concern for bronchitis, pneumonia, recurrent pulmonary embolism, asthma exacerbation or undiagnosed COPD or combination the above. Will test for COVID-19 RSV influenza, steroids nebulizer CTA chest EKG Patients symptoms are consistent with sepsis, severe sepsis, or septic shock (If yes use .sepsiscoremeasure): No Please see subsequent provider note for further details and disposition (Comment: Please note this report has been produced using speech recognition software and may contain errors related to that system including errors in grammar, punctuation, and spelling as well as words and phrases that may be inappropriate. If there are any questions or concerns please feel free to contact the dictating provider for clarification) Jose Cruz Silvestre MD [facility] Jose Cruz Silvestre MD 06/22/24 1432 [employer] Work Phone: 04-13-2024 Emergency department Note Vitals updated and patient was medicated. Denied further need or questions. This RN reviewed discharge paperwork with patient. Ambulated out of ED, going to main building to visit someone. Melissa Gilbert RN 04/13/242203 [facility] 04-13-2024 Emergency department Note Vitals updated and patient was medicated. Denied further need or questions. This RN reviewed discharge paperwork with patient. Ambulated out of ED, going to main building to visit someone. Melissa Gilbert RN 04/13/242203 Images from the original note were not included. EMERGENCY DEPARTMENT ENCOUNTER Pt Name: Mariella Christine Birthdate 1990 Date of evaluation: 04/13/2024 ED Provider: JOAQUIN Orellanaare was supervised by Dr. Urbano who independently examined and evaluated the patient. Please see their attestation note for further details. CHIEF COMPLAINT Chief Complaint Patient presents with Syncope Pt states she had a syncopal event in the elevator here. States she hit the back of her head. States she has syncopal events often. HISTORY OF PRESENT ILLNESS (Location/Symptom, Timing/Onset, Context/Setting, Quality, Duration, Modifying Factors, Severity) Note limiting factors. I wore appropriate PPE for the entirety of this encounter. HPI Mariella Christine is a 33 y.o. who presents to the emergency department after reported syncopal episode. Patient reports that she was in the elevator at the hospital after visiting a patient when she began feeling anxious, lightheaded, experienced cold sweats, and then suffered from apparent syncopal episode. Patient reports that she struck the back of her head on the wall. Patient not currently on any anticoagulating medications. Patient reports that she is having pain in the posterior aspect of her head. No neck or back pain. Patient reports frequent syncopal episodes in the past. Patient reports history of brain tumor, however I am unable to find documentation of this. I have seen the patient before and she has known history of fabrication of medical conditions. Patient denies headache, lightheadedness, dizziness, fever, chills, visual disturbances, chest pain, palpitations, shortness of breath, cough, abdominal pain, nausea, vomiting, diarrhea, constipation. Denies dysuria, hematuria, or polyuria. Nursing Notes were reviewed. Limitations to history: None Outside historians: None REVIEW OF SYSTEMS Review of Systems Pertinent positives and negatives as per HPI. 13 systems reviewed as detailed above. PAST MEDICAL HISTORY No past medical history on file. SURGICAL HISTORY No past surgical history on file. CURRENT MEDICATIONS Discharge Medication List as of 04/13/2024 7:16 PM CONTINUE these medications which have NOT CHANGED Details lidocaine (Lidoderm) 5 % patch Apply 1 patch topically daily. Remove & discard patch within 12 hours or as directed by , Starting Mon02/21/2023, Print ALLERGIES Latex and Pcn [penicillins] FAMILY HISTORY No family history on file. 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 Constitutional: General: She is not in acute distress. Appearance: Normal appearance. She is well-developed. HENT: Head: Normocephalic and atraumatic. Jaw: There is normal jaw occlusion. Comments: Tenderness without objective trauma to the occiput Nose: Nose normal. Mouth/Throat: Mouth: Mucous membranes are moist. Pharynx: Oropharynx is clear. Eyes: Extraocular Movements: Extraocular movements intact. Conjunctiva/sclera: Conjunctivae normal. Pupils: Pupils are equal, round, and reactive to light. Cardiovascular: Rate and Rhythm: Normal rate and regular rhythm. Pulses: Normal pulses. Heart sounds: Normal heart sounds. No murmur heard. Pulmonary: Effort: Pulmonary effort is normal. No respiratory distress. Breath sounds: Normal breath sounds. Abdominal: General: Bowel sounds are normal. There is no distension. Palpations: Abdomen is soft. Tenderness: There is no abdominal tenderness. There is no guarding or rebound. Musculoskeletal: General: No swelling. Normal range of motion. Cervical back: Normal, normal range of motion and neck supple. Thoracic back: Normal. Lumbar back: Normal. Skin: General: Skin is warm and dry. Capillary Refill: Capillary refill takes less than 2 seconds. Neurological: General: No focal deficit present. Mental Status: She is alert and oriented to person, place, and time. Cranial Nerves: No cranial nerve deficit. Sensory: No sensory deficit. Motor: No weakness. Coordination: Coordination normal. Gait: Gait normal. Psychiatric: Mood and Affect: Mood normal. Behavior: Behavior normal. DIAGNOSTIC RESULTS RADIOLOGY (Per Emergency Physician): Interpretation per the Radiologist below, if available at the time of this note: CT head wo IV contrast Final Result No acute brain process identified. . CT cervical spine: Indication: Trauma and neck pain Comparison none FINDINGS: Dose reduction was employed with automated exposure control. Unenhanced cervical spine performed. 3-D imaging created and reviewed on independent 3-D workstation for better detection of pathology evaluation of neural foramina. Bone density:Normal. Acute lesions: No acute fracture or dislocation. Soft tissues: No soft tissue swelling. Arthritis: No significant degenerative change. Limited views of skull base unremarkable. Visualized portions of lung apices Show no major volume loss.. IMPRESSION: No acute process visualized. Report Dictated on Electronically Signed By: Jorge Arce MD Electronically Signed Date/Time: 04/13/2024 5:[address] cervical spine wo IV contrast Final Result No acute brain process identified. . CT cervical spine: Indication: Trauma and neck pain Comparison none FINDINGS: Dose reduction was employed with automated exposure control. Unenhanced cervical spine performed. 3-D imaging created and reviewed on independent 3-D workstation for better detection of pathology evaluation of neural foramina. Bone density:Normal. Acute lesions: No acute fracture or dislocation. Soft tissues: No soft tissue swelling. Arthritis: No significant degenerative change. Limited views of skull base unremarkable. Visualized portions of lung apices Show no major volume loss.. IMPRESSION: No acute process visualized. Report Dictated on Electronically Signed By: Jorge Arce MD Electronically Signed Date/Time: 04/13/2024 5:18 PM EDT LABS: Labs Reviewed BASIC METABOLIC PANEL - Abnormal Result Value SODIUM 139 POTASSIUM 3.5 CHLORIDE 106 CARBON DIOXIDE 21 (*) UREA NITROGEN 12 CREATININE 1.02 GLUCOSE 89 CALCIUM 9.1 ANION GAP 11 eGFR 73.7 CBC WITH AUTO DIFFERENTIAL - Abnormal Auto WBC 7.2 RBC 5.17 Hemoglobin 15.3 Hematocrit 45.1 MCV 87.2 MCH 29.6 MCHC 33.9 RDW 12.1 Platelets 118 (*) MPV 12.1 nRBC 0.0 Neutrophils Relative 58.8 Lymphocytes Relative 28.3 Monocytes Relative 9.3 Eosinophils Relative 2.6 Basophils Relative 0.6 Immature Grans % 0.4 Neutrophils Absolute 4.3 Lymphocytes Absolute 2.1 Monocytes Absolute 0.7 Eosinophils Absolute 0.2 Basophils Absolute 0.0 Immature Grans Absolute 0.0 MAGNESIUM - Normal MAGNESIUM 2.0 TROPONIN I - Normal TROPONIN I <0.012 Narrative: Patients with high levels of Biotin oral intake (ie >5 mg/day) may have falsely decreased Troponin levels. POCT GLUCOSE METER UNSOLICITED RESULTS - Normal Glucose 95 Narrative: Performed by: [facility], [address] [place], [place] [id number] CLIA ID: [id number] All other labs were within normal range or not returned as of this dictation. EMERGENCY DEPARTMENT COURSE and DIFFERENTIAL DIAGNOSIS/MDM: Vitals: Vitals: 04/13/24 1551 04/13/24 2157 BP: (!) 132/93 (!) 140/97 Pulse: 90 80 Resp: 22 16 Temp: 36.1 C (96.9 F) 36.4 C (97.5 F) TempSrc: Temporal Temporal SpO2: 98% 98% Medications acetaminophen (Tylenol) tablet 1,000 mg (1,000 mg Oral Given 04/13/24 1751) FLUoxetine (PROzac) capsule 20 mg (20 mg Oral Given 04/13/242156) busPIRone (Buspar) tablet 30 mg (30 mg Oral Given 04/13/242156) MDM elements: The patient presented with chief complaint of episode with head pain. The differential diagnosis associated with this patient's presentation includes CVA, ICH, cardiac syncope, electrolyte derangement, dehydration, vasovagal syncope, anxiety. Our workup consisted of ordering/reviewing: A thorough physical exam was performed as detailed above. CBC and BMP obtained unremarkable. Magnesium level within normal limits. Troponin level is undetectable. Twelve-lead EKG nonischemic in nature. CT scans of the head and C-spine were obtained, no acute findings noted. Additionally there are no chronic, abnormalities noted on head CT to suggest presence of brain mass or resection of same. Patient endorses 10/10 pain to the occiput, however there is no objective trauma. Patient neurologically intact. I discussed their care with Dr. Urbano, ED attending, who performed and independent evaluation of this patient and is in agreement with plan of care and disposition. See their note for further detail. Prior to discharge patient asking for her daily evening time medications but she reports that she is not planning on going home this evening but rather staying with loved 1 who is admitted to the hospital. Patient given Prozac and BuSpar which she was noted to be taking per chart review.. The patient will be Discharged. Patient is in agreement with this plan. PROCEDURES: Unless otherwise noted below, none Procedures CRITICAL CARE TIME None FINAL IMPRESSION 1. Syncope, unspecified syncope type 2. Closed head injury, initial encounter DISPOSITION Discharge 04/13/2024 07:15:26 PM PATIENT REFERRED TO: [facility] [address] [facility] [id number] DISCHARGE MEDICATIONS: Discharge Medication List as of 04/13/2024 7:16 PM (Comment: Please note this report has been produced using speech recognition software and may contain errors related to that system including errors in grammar, punctuation, and spelling, as well as words and phrases that may be inappropriate. If there are any questions or concerns please feel free to contact the dictating provider for clarification.) Yuliana Peck APRN (electronically signed) Emergency Medicine Provider Yuliana Peck APRN 04/13/24 6458 documented in this encounter [facility] 04-13-2024 Hospital Discharg e instructions Yuliana Peck APRN - 04/13/2024 7:15 PM EDT In the medical field, there is always a level of diagnostic uncertainty, even if this uncertainty is low. For this reason, it is important to immediately return to the emergency department if you have any new symptoms, worsening symptoms, change of symptoms, or if you have any other concerns. We would be happy to re-evaluate you. Otherwise, please take your medications as prescribed and follow-up as recommended. The following attachments cannot be sent through Care Everywhere.Syncope (Fainting) (Chinese)Concussion Discharge Instructions, Adult (Chinese)documented in this encounter [facility] 04-13-2024 Note This will serve as m y Supervisory note and shared attestation. I personally saw the patient and made/approved the management plan and take responsibility for the patient management. I did perform a substantive portion of the visit including all aspects of the Medical Decision Making. All diagnostic, treatment, and disposition decisions were made by myself in conjunction with the [facility]. For all further details of the patient's emergency department visit, please see their documentation. [facility] EMERGENCY DEPT EMERGENCY DEPARTMENT ENCOUNTER Pt Name: Mariella Christine Birthdate 1990 Date of evaluation: 04/13/2024 Provider: Claudette Urbano MD CHIEF COMPLAINT Chief Complaint Patient presents with Syncope Pt states she had a syncopal event in the elevator here. States she hit the back of her head. States she has syncopal events often. HISTORY OF PRESENT ILLNESS I wore proper PPE for the entirety of this encounter. Mariella Christine is a 33 y.o. female who presents to the emergency department with a syncopal episode. Patient says he was in the hospital in the elevator and she started to feel anxious, hot and cold at the same time, lightheaded and then she passed out. She says she hit the back of her head on the elevator wall. She is not on anticoagulation. She says that she has a history of a brain mass. Nursing Notes were reviewed. REVIEW OF SYSTEMS Constitutional: as noted in HPI, and negative for fever/chills Eyes: as noted in HPI, and negative for vision changes ENT: as noted in HPI, and negative for cough CV: as noted in HPI, and negative for chest pain, negative for palpitations Resp: as noted in HPI, and negative for shortness of breath GI: as noted in HPI, and negative for abd pain, negative for n/v/d : as noted in HPI, and negative for urinary symptoms MSK: as noted in HPI, and negative for muscle pain Skin: as noted in HPI, and negative for rash Neuro: as noted in HPI, and negative for acute focal weakness/numbness PAST MEDICAL HISTORY No past medical history on file. SURGICAL HISTORY No past surgical history on file. CURRENT MEDICATIONS Discharge Medication List as of 04/13/2024 7:16 PM CONTINUE these medications which have NOT CHANGED Details lidocaine (Lidoderm) 5 % patch Apply 1 patch topically daily. Remove & discard patch within 12 hours or as directed by ., Starting Mon02/21/2023, Print ALLERGIES Latex and Pcn [penicillins] FAMILY HISTORY No family history on file. 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 PERRLA, EOMI ENT: Mucous membranes moist. Normal oropharynx Neck: No C-spine tenderness, normal ROM, supple CV: RRR RESP: CTAB, good respiratory effort, no increased wob GI: Abdomen soft, non-tender, non-distended, +BS, no guarding or rebound tenderness MSK: Normal bulk and tone, no gross deformity EXTR: Warm and well perfused, no edema SKIN: No rash/bruising/erythema PSYCH: Appropriate affect, cooperative behavior NEURO: Alert and oriented x 3, face symmetric, no slurred speech, CN2-12 intact, motor and sensory intact and equal bilaterally. No pronator drift. Cerebellar (finger-nose) normal. DIAGNOSTIC RESULTS Interpretation per the Radiologist below, if available at the time of this note: CT head wo IV contrast Final Result No acute brain process identified. . CT cervical spine: Indication: Trauma and neck pain Comparison none FINDINGS: Dose reduction was employed with automated exposure control. Unenhanced cervical spine performed. 3-D imaging created and reviewed on independent 3-D workstation for better detection of pathology evaluation of neural foramina. Bone density:Normal. Acute lesions: No acute fracture or dislocation. Soft tissues: No soft tissue swelling. Arthritis: No significant degenerative change. Limited views of skull base unremarkable. Visualized portions of lung apices Show no major volume loss.. IMPRESSION: No acute process visualized. Report Dictated on Electronically Signed By: Jorge Arce MD Electronically Signed Date/Time: 04/13/2024 5:[address] cervical spine wo IV contrast Final Result No acute brain process identified. . CT cervical spine: Indication: Trauma and neck pain Comparison none FINDINGS: Dose reduction was employed with automated exposure c (more content not included)... [facility] 04-13-2024 Physician Emergency department Note Images from the original note were not included. EMERGENCY DEPARTMENT ENCOUNTER Pt Name: Mariella Christine Birthdate 1990 Date of evaluation: 04/13/2024 ED Provider: Yuliana Peck APRN EDcare was supervised by Dr. Urbano who independently examined and evaluated the patient. Please see their attestation note for further details. CHIEF COMPLAINT Chief Complaint Patient presents with Syncope Pt states she had a syncopal event in the elevator here. States she hit the back of her head. States she has syncopal events often. HISTORY OF PRESENT ILLNESS (Location/Symptom, Timing/Onset, Context/Setting, Quality, Duration, Modifying Factors, Severity) Note limiting factors. I wore appropriate PPE for the entirety of this encounter. HPI Mariella Christine is a 33 y.o. who presents to the emergency department after reported syncopal episode. Patient reports that she was in the elevator at the hospital after visiting a patient when she began feeling anxious, lightheaded, experienced cold sweats, and then suffered from apparent syncopal episode. Patient reports that she struck the back of her head on the wall. Patient not currently on any anticoagulating medications. Patient reports that she is having pain in the posterior aspect of her head. No neck or back pain. Patient reports frequent syncopal episodes in the past. Patient reports history of brain tumor, however I am unable to find documentation of this. I have seen the patient before and she has known history of fabrication of medical conditions. Patient denies headache, lightheadedness, dizziness, fever, chills, visual disturbances, chest pain, palpitations, shortness of breath, cough, abdominal pain, nausea, vomiting, diarrhea, constipation. Denies dysuria, hematuria, or polyuria. Nursing Notes were reviewed. Limitations to history: None Outside historians: None REVIEW OF SYSTEMS Review of Systems Pertinent positives and negatives as per HPI. 13 systems reviewed as detailed above. PAST MEDICAL HISTORY No past medical history on file. SURGICAL HISTORY No past surgical history on file. CURRENT MEDICATIONS Discharge Medication List as of 04/13/2024 7:16 PM CONTINUE these medications which have NOT CHANGED Details lidocaine (Lidoderm) 5 % patch Apply 1 patch topically daily. Remove & discard patch within 12 hours or as directed by ., Starting Mon02/21/2023, Print ALLERGIES Latex and Pcn [penicillins] FAMILY HISTORY No family history on file. 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 Constitutional: General: She is not in acute distress. Appearance: Normal appearance. She is well-developed. HENT: Head: Normocephalic and atraumatic. Jaw: There is normal jaw occlusion. Comments: Tenderness without objective trauma to the occiput Nose: Nose normal. Mouth/Throat: Mouth: Mucous membranes are moist. Pharynx: Oropharynx is clear. Eyes: Extraocular Movements: Extraocular movements intact. Conjunctiva/sclera: Conjunctivae normal. Pupils: Pupils are equal, round, and reactive to light. Cardiovascular: Rate and Rhythm: Normal rate and regular rhythm. Pulses: Normal pulses. Heart sounds: Normal heart sounds. No murmur heard. Pulmonary: Effort: Pulmonary effort is normal. No respiratory distress. Breath sounds: Normal breath sounds. Abdominal: General: Bowel sounds are normal. There is no distension. Palpations: Abdomen is soft. Tenderness: There is no abdominal tenderness. There is no guarding or rebound. Musculoskeletal: General: No swelling. Normal range of motion. Cervical back: Normal, normal range of motion and neck supple. Thoracic back: Normal. Lumbar back: Normal. Skin: General: Skin is warm and dry. Capillary Refill: Capillary refill takes less than 2 seconds. Neurological: General: No focal deficit present. Mental Status: She is alert and oriented to person, place, and time. Cranial Nerves: No cranial nerve deficit. Sensory: No sensory deficit. Motor: No weakness. Coordination: Coordination normal. Gait: Gait normal. Psychiatric: Mood and Affect: Mood normal. Behavior: Behavior normal. DIAGNOSTIC RESULTS RADIOLOGY (Per Emergency Physician): Interpretation per the Radiologist below, if available at the time of this note: CT head wo IV contrast Final Result No acute brain process identified. . CT cervical spine: Indication: Trauma and neck pain Comparison none FINDINGS: Dose reduction was employed with automated exposure control. Unenhanced cervical spine performed. 3-D imaging created and reviewed on independent 3-D workstation for better detection of pathology evaluation of neural foramina. Bone density:Normal. Acute lesions: No acute fracture or dislocation. Soft tissues: No soft tissue swelling. Arthritis: No significant degenerative change. Limited views of skull base unremarkable. Visualized portions of lung apices Show no major volume loss.. IMPRESSION: No acute process visualized. Report Dictated on Electronically Signed By: Jorge Arce MD Electronically Signed Date/Time: 04/13/2024 5:[address] cervical spine wo IV contrast Final Result No acute brain process identified. . CT cervical spine: Indication: Trauma and neck pain Comparison none FINDINGS: Dose reduction was employed with automated exposure control. Unenhanced cervical spine performed. 3-D imaging created and reviewed on independent 3-D workstation for better detection of pathology evaluation of neural foramina. Bone density:Normal. Acute lesions: No acute fracture or dislocation. Soft tissues: No soft tissue swelling. Arthritis: No significant degenerative change. Limited views of skull base unremarkable. Visualized portions of lung apices Show no major volume loss.. IMPRESSION: No acute process visualized. Report Dictated on Electronically Signed By: Jorge Arce MD Electronically Signed Date/Time: 04/13/2024 5:18 PM EDT LABS: Labs Reviewed BASIC METABOLIC PANEL - Abnormal Result Value SODIUM 139 POTASSIUM 3.5 CHLORIDE 106 CARBON DIOXIDE 21 (*) UREA NITROGEN 12 CREATININE 1.02 GLUCOSE 89 CALCIUM 9.1 ANION GAP 11 eGFR 73.7 CBC WITH AUTO DIFFERENTIAL - Abnormal Auto WBC 7.2 RBC 5.17 Hemoglobin 15.3 Hematocrit 45.1 MCV 87.2 MCH 29.6 MCHC 33.9 RDW 12.1 Platelets 118 (*) MPV 12.1 nRBC 0.0 Neutrophils Relative 58.8 Lymphocytes Relative 28.3 Monocytes Relative 9.3 Eosinophils Relative 2.6 Basophils Relative 0.6 Immature Grans % 0.4 Neutrophils Absolute 4.3 Lymphocytes Absolute 2.1 Monocytes Absolute 0.7 Eosinophils Absolute 0.2 Basophils Absolute 0.0 Immature Grans Absolute 0.0 MAGNESIUM - Normal MAGNESIUM 2.0 TROPONIN I - Normal TROPONIN I <0.012 Narrative: Patients with high levels of Biotin oral intake (ie >5 mg/day) may have falsely decreased Troponin levels. POCT GLUCOSE METER UNSOLICITED RESULTS - Normal Glucose 95 Narrative: Performed by: [facility], [address] [place], [place] [id number] CLIA ID: [id number] All other labs were within normal range or not returned as of this dictation. EMERGENCY DEPARTMENT COURSE and DIFFERENTIAL DIAGNOSIS/MDM: Vitals: Vitals: 04/13/24 1551 04/13/242156 BP: (!) 132/93 (!) 140/97 Pulse: 90 80 Resp: 22 16 Temp: 36.1 C (96.9 F) 36.4 C (97.5 F) TempSrc: Temporal Temporal SpO2: 98% 98% Medications acetaminophen (Tylenol) tablet 1,000 mg (1,000 mg Oral Given 04/13/241) FLUoxetine (PROzac) capsule 20 mg (20 mg Oral Given 04/13/242156) busPIRone (Buspar) tablet 30 mg (30 mg Oral Given 04/13/242156) MDM elements: The patient presented with chief complaint of episode with head pain. The differential diagnosis associated with this patient's presentation includes CVA, ICH, cardiac syncope, electrolyte derangement, dehydration, vasovagal syncope, anxiety. Our workup consisted of ordering/reviewing: A thorough physical exam was performed as detailed above. CBC and BMP obtained unremarkable. Magnesium level within normal limits. Troponin level is undetectable. Twelve-lead EKG nonischemic in nature. CT scans of the head and C-spine were obtained, no acute findings noted. Additionally there are no chronic, abnormalities noted on head CT to suggest presence of brain mass or resection of same. Patient endorses 10/10 pain to the occiput, however there is no objective trauma. Patient neurologically intact. I discussed their care with Dr. Urbano, ED attending, who performed and independent evaluation of this patient and is in agreement with plan of care and disposition. See their note for further detail. Prior to discharge patient asking for her daily evening time medications but she reports that she is not planning on going home this evening but rather staying with loved 1 who is admitted to the hospital. Patient given Prozac and BuSpar which she was noted to be taking per chart review.. The patient will be Discharged. Patient is in agreement with this plan. PROCEDURES: Unless otherwise noted below, none Procedures CRITICAL CARE TIME None FINAL IMPRESSION 1. Syncope, unspecified syncope type 2. Closed head injury, initial encounter DISPOSITION Discharge 04/13/2024 07:15:26 PM PATIENT REFERRED TO: [facility] [address] [place] [id number] DISCHARGE MEDICATIONS: Discharge Medication List as of 04/13/2024 7:16 PM (Comment: Please note this report has been produced using speech recognition software and may contain errors related to that system including errors in grammar, punctuation, and spelling, as well as words and phrases that may be inappropriate. If there are any questions or concerns please feel free to contact the dictating provider for clarification.) Yuliana Peck APRN (electronically signed) Emergency Medicine Provider Yuliana Peck APRN 04/13/242303 [facility] Work Phone: 03-26-2024 Telephone encounter Note S: Patient spoke with [facility] nurse regarding needs to be establish with the [facility] PCP States she recently moved from [facility]. B: Onset of symptoms/concern LMP vague. 03/18 HCG normal limits. States she has had blood test which tells her she is . A: states she is spotting and leaking milk from her breast. Reporting no control of her urine. R: Will follow up for the CHIP PERSON. Advised for her concerns would need to go to the ED Patient understands care advice. No further needs at this time. Patient instructed to call back with new or worsening symptoms. Reason for Disposition [1] Nipple discharge AND [2] not bloody (e.g., clear, white, yellow, brown, green) Protocols used: Breast [id number] [facility] 03-26-2024 Miscellaneous Notes S: Patient spoke with [facility] nurse regarding needs to be establish with the [facility] PCP States she recently moved from [facility]. [facility]. B: Onset of symptoms/concern LMP vague. 03/18 HCG normal limits. States she has had blood test which tells her she is . A: states she is spotting and leaking milk from her breast. Reporting no control of her urine. R: Will follow up for the CHIP PERSON. Advised for her concerns would need to go to the ED Patient understands care advice. No further needs at this time. Patient instructed to call back with new or worsening symptoms. Reason for Disposition [1] Nipple discharge AND [2] not bloody (e.g., clear, white, yellow, brown, green) Protocols used: Breast [id number] documented in this encounter [facility] 03-19-2024 Emergency department Note Pt called RN in at this time stating she feels okay and was asking if she was being discharged; let providers know Sylvia Glass RN 03/19/24 0126 [facility] 03-19-2024 Emergency department Note Pt called RN in at this time stating she feels okay and was asking if she was being discharged; let providers know Sylvia Glass RN 03/19/24 0126 Pt appears comfortable resting in bed with eyes closed, RR 18 and breathing unlabored and equal. Pt did eat a few belgica crackers and saltines with water and denies complaints Sylvia Glass RN 03/19/[address] Sylvia Glass RN 03/18/24 3594 Pt A+Ox4. Pt has even and equal chest rise. Pt up to self with steady gait. Dagoberto Long RN 03/18/24 9608 Minor BREWER made aware of pt feeling increased anxiety and requesting Buspar 30mg via secure chat. Dagoberto Long RN 03/18/242241 This RN attempted IV x1 unable to gain access. Sylvia RN started IV at this time with IV ultrasound. Dagoberto Long RN 03/18/242131 Emergency Department Encounter [facility] EMERGENCY DEPT Patient: Mariella Christine : 1990 Date of Evaluation: 03/18/2024 ED [facility] Provider: Minor Bartlett PA-C EDcare was supervised by Dr. Camilo who independently examined and evaluated the patient. Please see their attestation note for further details. Chief Complaint Chief Complaint Patient presents with Abdominal Pain Pt states having abdomen pain today that started 3 hours ago. Pt states having on and off abdomen pain for past 3 months. Pt states abdomen pain in all quadrants. Pt states history of hernia. Pt states having vomiting. Pt denies any fever. ELEANOR Farley was wearing a N95, Surgical mask for the entirety of this encounter. Mariella Christine is a 33 y.o. female who presents to the emergency department for abdominal pain that started a few hours ago. Patient says she has been having intermittent abdominal pain for few months now. Patient does endorse nausea with vomiting. Denies any fever or chills. Denies any chest pain or shortness of breath. Limitations to history: None Outside historians: EMR Past History History reviewed. No pertinent past medical history. History reviewed. No pertinent surgical history. 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 Remove & discard patch within 12 hours or as directed by , Starting 02/21/2023, Print Allergies Allergen Reactions Latex Pcn [Penicillins] Physical Exam BP 132/84 Pulse 91 Temp 36.7 C (98.1 F) (Oral) Resp 18 LMP (LMP Unknown) SpO2 97% Physical Exam GENERAL APPEARANCE: Awake and alert. Cooperative. HEENT: Normocephalic. Atraumatic. Sclera anicteric. Tolerates saliva. No trismus. NECK: Supple. Trachea midline. CARDIO: Normal rate. Radial pulses symmetrical and palpable LUNGS: Respirations unlabored. CTAB. ABDOMEN: Soft. Nondistended. Diffuse abdominal tenderness to palpation. No guarding. MUSCULOSKELETAL: No acute deformities. SKIN: Warm and dry. NEUROLOGICAL: No gross facial drooping. No obvious neurologic deficits. Tip Length Checker strength symmetrical. Moves all 4 extremities spontaneously. SCREENINGS D Labs: Results for orders placed or performed during the hospital encounter of 03/18/24 CBC auto differential Result Value Ref Range Auto WBC 7.6 3.6 - 10.7 10*3/uL RBC 4.48 3.80 - 5.20 10*6/uL Hemoglobin 13.9 11.7 - 16.0 g/dL Hematocrit 38.4 35.0 - 47.0 % MCV 85.7 77.0 - 99.0 fL MCH 31.0 26.0 - 34.0 pg MCHC 36.2 (H) 30.5 - 36.0 % RDW 12.4 11.5 - 15.0 % Platelets 118 (L) 140 - 440 10*3/uL MPV 12.3 9.0 - 12.7 fL nRBC 0.0 0.0 - 2.0 /100 WBCs Neutrophils Relative 55.8 38.0 - 82.0 % Lymphocytes Relative 31.4 15.0 - 45.0 % Monocytes Relative 9.9 5.0 - 13.0 % Eosinophils Relative 1.9 0.0 - 6.0 % Basophils Relative 0.7 0.0 - 2.0 % Immature Grans % 0.3 0.0 - 2.0 % Neutrophils Absolute 4.2 1.8 - 7.5 10*3/uL Lymphocytes Absolute 2.4 1.0 - 4.3 10*3/uL Monocytes Absolute 0.8 0.0 - 0.9 10*3/uL Eosinophils Absolute 0.1 0.0 - 0.5 10*3/uL Basophils Absolute 0.1 0.0 - 0.2 10*3/uL Immature Grans Absolute 0.0 <0.1 10*3/uL Comprehensive metabolic panel Result Value Ref Range SODIUM 137 135 - 145 mmol/L POTASSIUM 3.7 3.5 - 5.1 mmol/L CHLORIDE 106 98 - 107 mmol/L CARBON DIOXIDE 21 (L) 22 - 30 mmol/L ANION GAP 9 3 - 13 mmol/L UREA NITROGEN 11 7 - 17 mg/dL CREATININE 1.07 (H) 0.52 - 1.04 mg/dL GLUCOSE 111 (H) 70 - 100 mg/dL CALCIUM 9.3 8.4 - 10.4 mg/dL AST (SGOT) 24 15 - 46 U/L ALT 18 0 - 34 U/L ALKALINE PHOSPHATASE 80 38 - 126 U/L ALBUMIN 4.0 3.5 - 5.0 g/dL BILIRUBIN, TOTAL 0.6 0.2 - 1.3 mg/dL TOTAL PROTEIN 7.2 6.3 - 8.2 g/dL eGFR 69.6 >60.0 mL/min/1.73m*2 Lipase Result Value Ref Range LIPASE 55 23 - 300 U/L HCG, RAPID SERUM Result Value Ref Range HCG, RAPID SCREEN None Detected None Detected Complete Urinalysis Result Value Ref Range Color, Urine Red (A) Lt. Yellow Clarity, Urine Extra Turbid (A) Clear pH, Urine 5.5 5.0 - 8.0 pH Leukocytes, Urine 75 (A) Negative Bill/uL Nitrite, Urine Negative Negative Protein, Urine 100 (A) Negative mg/dL Glucose, Urine Normal Normal (<70) mg/dL Bilirubin, Urine Negative Negative mg/dL Ketones, Urine Negative Negative mg/dL Urobilinogen, Urine Normal Normal (0-1) mg/dL Blood, Urine >1.0 (A) Negative mg/dL RBC, Urine >100 (A) 0 - 2 /HPF WBC, Urine 6-10 (A) 0 - 5 /HPF Squamous Epithelial, Urine 3-5 3 - 5 /HPF Bacteria, Urine Negative Negative /HPF Mucus, Urine Few Negative /LPF Hyaline Casts, Urine Negative Negative /LPF SPECIFIC GRAVITY OF URINE (NUMERIC) 1.026 1.005 - 1.030 hCG, quantitative, Result Value Ref Range HCG QUANTITATIVE <2 Females <=5 mIU/mL Radiographs: CT abdomen pelvis w contrast Final Result 1. Trace pneumobilia (of no clinical significance). 2. Stable right adrenal adenoma. CT PELVIS: 3 mm axial cuts are obtained from the iliac crests through the symphysis pubis with 75 mL Isovue IV contrast. Dose reduction was employed with automated exposure control. The examination is compared to a previous study dated 10/04/2023. FINDINGS: There are nondistended loops of small bowel. Air and stool are identified within the colon to the level of the rectum. There is no evidence of obstruction. A normal-appearing appendix is seen in the right pelvis. The distal ureters and bladder are normal. No free fluid is seen within the pelvis. IMPRESSION: 1. Trace pneumobilia (of no clinical significance). 2. Stable right adrenal adenoma. 3. Normal appendix. 4. No CT evidence of an acute abdominal/pelvic process. Report Dictated on Electronically Signed By: Rodríguez Reyes MD Electronically Signed Date/Time: 03/19/2024 12:29 AM EDT : EKG: All EKG's areinterpreted by the Emergency Department Physician in the absence of a finished yarn examiner. see their note for interpretation of EKG. EMERGENCY DEPARTMENT COURSE and DIFFERENTIAL DIAGNOSIS/MDM: External Records Review: Reviewed Care Everywhere. Social Determinants of Health: none. Mariella Christine is a 33 y.o. female who presented to the emergency department for abdominal pain and nausea with vomiting for a few hours. Differential diagnosis included obstruction, pancreatitis, cholecystitis, appendicitis, gastroenteritis. Pt given Toradol, Zofran and fluids. Our workup consisted of ordering/reviewing CBC, CMP, lipase, hCG, UA, CT ab/pelvis and showed no leukocytosis. Hemoglobin 13.9. Lipase normal. HCG negative. CMP showed creatinine of 1.07. Normal liver enzymes. UA showed red blood cells, white blood cells, no bacteria. Will send for culture. CT abd/pelvis showed trace pneumobilia (of no clinical significance). Stable right adrenal adenoma. Normal appendix. No CT evidence of an acute abdominal/pelvic process. Patient presented with abdominal pain. Unsure etiology. Pt tolerated PO challenge. Given benign repeat abdominal exam, reassuring lab studies, and CT scan findings, low suspicion for acute hepatobiliary disease (including acute cholecystitis or cholangitis), acute pancreatitis (neg lipase), acute appendicitis, bowel obstruction, viscus perforation, or diverticulitis. Presentation not consistent with other acute, emergent causes of abdominal pain at this time. Pt is well appearing, abdominal exam without peritoneal signs and no evidence of acute abdomen. Had shared decision making with pt who was comfortable going home at this time. Dr. Camilo reassessed patient prior to discharge. Please see his note for additional details. Final Diagnosis: 1. Abdominal pain, generalized 2. Adrenal adenoma, unspecified laterality 3. Pneumobilia Medications sodium chloride 0.9 % bolus 1,000 mL (0 mL IntraVENous Stopped 03/19/24 0046) ketorolac (Toradol) injection 15 mg (15 mg IntraVENous Given 03/18/242306) ondansetron (Zofran) injection 4 mg (4 mg IntraVENous Given 03/18/242306) iopamidol (Isovue-370) 76 % injection 75 mL (75 mL IntraVENous Given 03/18/24 2352) CONSULTS: None PROCEDURES: Unless otherwise noted below, none Procedures DISPOSITION/PLAN Discharge 03/19/2024 01:26:22 AM PATIENT REFERRED TO: [facility] [address] [facility] [address] As needed [facility] Internal Medicine [address] [facility] [address] DISCHARGE MEDICATIONS: Discharge Medication List as of 03/19/2024 1:26 AM @[facility]([id number]:LAST:1)@ (Please note: Portions of this note were completed with a voice recognition program. Efforts were made to edit the dictations but occasionally words and phrases are mis-transcribed.) Form [id number].[id number] Minor Bartlett PA-C [employer] Minor Bartlett PA-C 03/19/24 0512 Emergency Department Encounter [facility] Patient: Mariella Christine : 1990 Date of Evaluation: 03/18/2024 ED Supervising Physician: Law Camilo MD I personally evaluated Mariella Christine and made/approved the management plan and take responsibility for the patient management. This will serve as my Supervisory note and shared attestation. I did perform a substantive portion of the visit including all aspects of the Medical Decision Making. I wore appropriate PPE for the entirety of this encounter. In brief, Mariella Christine is a 33 y.o. that presents to the emergency department abdominal pain Focused exam: Vitals are stable she has a benign abdominal exam with no significant reproducible tenderness Brief ED course/MDM: Patient with abdominal pain Gage for rectal bleeding. Plan is CT lab work if it is all within normal limits lower suspicion for dangerous etiology given she is 33 and otherwise relatively healthy from medical standpoint she does have numerous psychiatric comorbidities but feels that these are all the baseline she is calm and cooperative anticipate discharge Diagnostics interpreted by me: I personally discussed the patient's management with other clinicians: All diagnostic, treatment, and disposition decisions were made by myself in conjunction with the [facility]. For all further details of the patient's emergency department visit, please see their documentation. (Comment: Please note this report has been produced using speech recognition software and may contain errors related to that system including errors in grammar, punctuation, and spelling, as well as words and phrases that may be inappropriate. If there are any questions or concerns please feel free to contact the dictating provider for clarification.) Law Camilo MD Acute Care [facility] Law Camilo MD 03/19/24 0042 documented in this encounter [facility] 03-19-2024 Hospital Discharg e sly Bartlett PA-C - 03/19/2024 1:26 AM EDT INFORMATION: You were treated in the emergency department for abdominal pain There are many causes of abdominal pain, some serious and some not serious. Based on your evaluation, even if we were not able to determine an absolute cause of your abdominal pain, we think that you are safe to follow up with a primary medical doctor for further evaluation as needed. INSTRUCTIONS: Take over the counter medications such as Tylenol. Avoid NSAID medications like aspirin, naproxen and ibuprofen as these medications for long periods of time or at high doses can damage the lining of your stomach and may be contributing to your abdominal pain. Take any other prescribed pain relievers as directed. Eat or drink foods that you think will be gentle on your stomach. Avoid spicy foods until you are feeling better. Try eating bland foods and avoiding junk food or otherwise greasy food at least until your pain is entirely gone. Avoid alcohol until your symptoms have resolved and then only drink in moderation. FOLLOW-UP: Call your primary care doctor in 3-5 days to follow up on your symptoms as an outpatient. If your pain changes in type, location, or severity, if you develop a new fever greater than 100.5 or have uncontrolled nausea and vomiting, or if you are otherwise concerned please return to the ER for re-evaluation as soon as possible. If your symptoms have not resolved or improved significantly in 48-72 hours please return for a repeat evaluation. Return to the ER for difficulty breathing, inability to keep down liquids by mouth, urinating less than twice a day, severe pain, other concerning symptoms. The following attachments cannot be sent through Care Everywhere.Abdominal Pain, Adult ED (Chinese)documented in this encounter [facility] 03-19-2024 Emergency department Note Pt appears comfortable resting in bed with eyes closed, RR 18 and breathing unlabored and equal. Pt did eat a few belgica crackers and saltines with water and denies complaints Sylvia Glass RN 03/19/24 0119 [facility] 03-18-2024 Emergency department Note Pt in CT Sylvia Glass RN 03/18/24 7377 [facility] 03-18-2024 Emergency department Note Pt A+Ox4. Pt has even and equal chest rise. Pt up to self with steady gait. Dagoberto Long RN 03/18/24 0886 [facility] 03-18-2024 Emergency department Note Minor BREWER made aware of pt feeling increased anxiety and requesting Buspar 30mg via secure chat. Dagoberto Long RN 03/18/242241 [facility] 03-18-2024 Emergency department Note This RN attempted IV x1 unable to gain access. Sylvia ESTRADA started IV at this time with IV ultrasound. Dagoberto Long RN 03/18/242131 [facility] 03-18-2024 Physician Emergency department Note Emergency Department Encounter [facility] Patient: Mariella Christine : 1990 Date of Evaluation: 03/18/2024 ED [facility] Provider: Minor Bartlett PA-C EDcare was supervised by Dr. Camilo who independently examined and evaluated the patient. Please see their attestation note for further details. Chief Complaint Chief Complaint Patient presents with Abdominal Pain Pt states having abdomen pain today that started 3 hours ago. Pt states having on and off abdomen pain for past 3 months. Pt states abdomen pain in all quadrants. Pt states history of hernia. Pt states having vomiting. Pt denies any fever. RED DEVIL I was wearing a N95, Surgical mask for the entirety of this encounter. Mariella Christine is a 33 y.o. female who presents to the emergency department for abdominal pain that started a few hours ago. Patient says she has been having intermittent abdominal pain for few months now. Patient does endorse nausea with vomiting. Denies any fever or chills. Denies any chest pain or shortness of breath. Limitations to history: None Outside historians: EMR Past History History reviewed. No pertinent past medical history. History reviewed. No pertinent surgical history. 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 Remove & discard patch within 12 hours or as directed by , Starting Mon02/21/2023, Print Allergies Allergen Reactions Latex Pcn [Penicillins] Physical Exam BP 132/84 Pulse 91 Temp 36.7 C (98.1 F) (Oral) Resp 18 LMP (LMP Unknown) SpO2 97% Physical Exam GENERAL APPEARANCE: Awake and alert. Cooperative. HEENT: Normocephalic. Atraumatic. Sclera anicteric. Tolerates saliva. No trismus. NECK: Supple. Trachea midline. CARDIO: Normal rate. Radial pulses symmetrical and palpable LUNGS: Respirations unlabored. CTAB. ABDOMEN: Soft. Nondistended. Diffuse abdominal tenderness to palpation. No guarding. MUSCULOSKELETAL: No acute deformities. SKIN: Warm and dry. NEUROLOGICAL: No gross facial drooping. No obvious neurologic deficits. Tip Length Checker strength symmetrical. Moves all 4 extremities spontaneously. SCREENINGS D Labs: Results for orders placed or performed during the hospital encounter of 03/18/24 CBC auto differential Result Value Ref Range Auto WBC 7.6 3.6 - 10.7 10*3/uL RBC 4.48 3.80 - 5.20 10*6/uL Hemoglobin 13.9 11.7 - 16.0 g/dL Hematocrit 38.4 35.0 - 47.0 % MCV 85.7 77.0 - 99.0 fL MCH 31.0 26.0 - 34.0 pg MCHC 36.2 (H) 30.5 - 36.0 % RDW 12.4 11.5 - 15.0 % Platelets 118 (L) 140 - 440 10*3/uL MPV 12.3 9.0 - 12.7 fL nRBC 0.0 0.0 - 2.0 /100 WBCs Neutrophils Relative 55.8 38.0 - 82.0 % Lymphocytes Relative 31.4 15.0 - 45.0 % Monocytes Relative 9.9 5.0 - 13.0 % Eosinophils Relative 1.9 0.0 - 6.0 % Basophils Relative 0.7 0.0 - 2.0 % Immature Grans % 0.3 0.0 - 2.0 % Neutrophils Absolute 4.2 1.8 - 7.5 10*3/uL Lymphocytes Absolute 2.4 1.0 - 4.3 10*3/uL Monocytes Absolute 0.8 0.0 - 0.9 10*3/uL Eosinophils Absolute 0.1 0.0 - 0.5 10*3/uL Basophils Absolute 0.1 0.0 - 0.2 10*3/uL Immature Grans Absolute 0.0 <0.1 10*3/uL Comprehensive metabolic panel Result Value Ref Range SODIUM 137 135 - 145 mmol/L POTASSIUM 3.7 3.5 - 5.1 mmol/L CHLORIDE 106 98 - 107 mmol/L CARBON DIOXIDE 21 (L) 22 - 30 mmol/L ANION GAP 9 3 - 13 mmol/L UREA NITROGEN 11 7 - 17 mg/dL CREATININE 1.07 (H) 0.52 - 1.04 mg/dL GLUCOSE 111 (H) 70 - 100 mg/dL CALCIUM 9.3 8.4 - 10.4 mg/dL AST (SGOT) 24 15 - 46 U/L ALT 18 0 - 34 U/L ALKALINE PHOSPHATASE 80 38 - 126 U/L ALBUMIN 4.0 3.5 - 5.0 g/dL BILIRUBIN, TOTAL 0.6 0.2 - 1.3 mg/dL TOTAL PROTEIN 7.2 6.3 - 8.2 g/dL eGFR 69.6 >60.0 mL/min/1.73m*2 Lipase Result Value Ref Range LIPASE 55 23 - 300 U/L HCG, RAPID SERUM Result Value Ref Range HCG, RAPID SCREEN None Detected None Detected Complete Urinalysis Result Value Ref Range Color, Urine Red (A) Lt. Yellow Clarity, Urine Extra Turbid (A) Clear pH, Urine 5.5 5.0 - 8.0 pH Leukocytes, Urine 75 (A) Negative Bill/uL Nitrite, Urine Negative Negative Protein, Urine 100 (A) Negative mg/dL Glucose, Urine Normal Normal (<70) mg/dL Bilirubin, Urine Negative Negative mg/dL Ketones, Urine Negative Negative mg/dL Urobilinogen, Urine Normal Normal (0-1) mg/dL Blood, Urine >1.0 (A) Negative mg/dL RBC, Urine >100 (A) 0 - 2 /HPF WBC, Urine 6-10 (A) 0 - 5 /HPF Squamous Epithelial, Urine 3-5 3 - 5 /HPF Bacteria, Urine Negative Negative /HPF Mucus, Urine Few Negative /LPF Hyaline Casts, Urine Negative Negative /LPF SPECIFIC GRAVITY OF URINE (NUMERIC) 1.026 1.005 - 1.030 hCG, quantitative, Result Value Ref Range HCG QUANTITATIVE <2 Females <=5 mIU/mL Radiographs: CT abdomen pelvis w contrast Final Result 1. Trace pneumobilia (of no clinical significance). 2. Stable right adrenal adenoma. CT PELVIS: 3 mm axial cuts are obtained from the iliac crests through the symphysis pubis with 75 mL Isovue IV contrast. Dose reduction was employed with automated exposure control. The examination is compared to a previous study dated 10/04/2023. FINDINGS: There are nondistended loops of small bowel. Air and stool are identified within the colon to the level of the rectum. There is no evidence of obstruction. A normal-appearing appendix is seen in the right pelvis. The distal ureters and bladder are normal. No free fluid is seen within the pelvis. IMPRESSION: 1. Trace pneumobilia (of no clinical significance). 2. Stable right adrenal adenoma. 3. Normal appendix. 4. No CT evidence of an acute abdominal/pelvic process. Report Dictated on Electronically Signed By: Rodríguez Reyes MD Electronically Signed Date/Time: 03/19/2024 12:29 AM EDT : EKG: All EKG's areinterpreted by the Emergency Department Physician in the absence of a finished yarn examiner. see their note for interpretation of EKG. EMERGENCY DEPARTMENT COURSE and DIFFERENTIAL DIAGNOSIS/MDM: External Records Review: Reviewed Care Everywhere. Social Determinants of Health: none. Mariella Christine is a 33 y.o. female who presented to the emergency department for abdominal pain and nausea with vomiting for a few hours. Differential diagnosis included obstruction, pancreatitis, cholecystitis, appendicitis, gastroenteritis. Pt given Toradol, Zofran and fluids. Our workup consisted of ordering/reviewing CBC, CMP, lipase, hCG, UA, CT ab/pelvis and showed no leukocytosis. Hemoglobin 13.9. Lipase normal. HCG negative. CMP showed creatinine of 1.07. Normal liver enzymes. UA showed red blood cells, white blood cells, no bacteria. Will send for culture. CT abd/pelvis showed trace pneumobilia (of no clinical significance). Stable right adrenal adenoma. Normal appendix. No CT evidence of an acute abdominal/pelvic process. Patient presented with abdominal pain. Unsure etiology. Pt tolerated PO challenge. Given benign repeat abdominal exam, reassuring lab studies, and CT scan findings, low suspicion for acute hepatobiliary disease (including acute cholecystitis or cholangitis), acute pancreatitis (neg lipase), acute appendicitis, bowel obstruction, viscus perforation, or diverticulitis. Presentation not consistent with other acute, emergent causes of abdominal pain at this time. Pt is well appearing, abdominal exam without peritoneal signs and no evidence of acute abdomen. Had shared decision making with pt who was comfortable going home at this time. Dr. Camilo reassessed patient prior to discharge. Please see his note for additional details. Final Diagnosis: 1. Abdominal pain, generalized 2. Adrenal adenoma, unspecified laterality 3. Pneumobilia Medications sodium chloride 0.9 % bolus 1,000 mL (0 mL IntraVENous Stopped 03/19/24 0046) ketorolac (Toradol) injection 15 mg (15 mg IntraVENous Given 03/18/24 230) ondansetron (Zofran) injection 4 mg (4 mg IntraVENous Given 03/18/24 230) iopamidol (Isovue-370) 76 % injection 75 mL (75 mL IntraVENous Given 03/18/24 2352) CONSULTS: None PROCEDURES: Unless otherwise noted below, none Procedures DISPOSITION/PLAN Discharge 03/19/2024 01:26:22 AM PATIENT REFERRED TO: [facility] [address] [facility] [address] As needed [facility] Internal Medicine [address] [facility] [address] DISCHARGE MEDICATIONS: Discharge Medication List as of 03/19/2024 1:26 AM @[facility]([id number]:LAST:1)@ (Please note: Portions of this note were completed with a voice recognition program. Efforts were made to edit the dictations but occasionally words and phrases are mis-transcribed.) Form v2016.J.[id number] Minor Bartlett PA-C [employer] Minor Bartlett PA-C 03/19/24 0512 [facility] 04-22-2024 Physician Emergency department Note Emergency Department Encounter [facility] Patient: Mariella Christine : 1990 Date of Evaluation: 03/18/2024 ED Supervising Physician: Law Camilo MD I personally evaluated Mariella Christine and made/approved the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 seen early childhood associate teacher per patient in many years, consult placed. - CONSULT TO GYNECOLOGY 9. Possible - ICD9: V72.40, ICD10: Z32.00 - HCG QUAL UR B/O - negative 10. Lipid screening - ICD9: V77.91, ICD10: Z13.220 - COMP METABOLIC PANEL - LIPID PANEL BASIC documented in this encounter [facility] Evaluation note Diagnosis Annual physical exam- Primary Routine general medical examination at a health care facility Gastroesophageal reflux disease without esophagitis Esophageal reflux Epigastric pain Abdominal pain, epigastric Rhinitis, unspecified type Chronic left hip pain Pain in joint, pelvic region and thigh Class 3 severe obesity with body mass index (BMI) of 50.0 to 59.9 in adult, unspecified obesity type, unspecified whether serious comorbidity present (HCC) Dysuria Abnormal menstruation Unspecified disorder of menstruation and other abnormal bleeding from female genital tract Possible examination or test, unconfirmed Lipid screening Screening for lipoid disorders [facility] Diagnosis Gastroesophageal reflux disease without esophagitis Esophageal reflux [facility] noteNo assessment information availableW[facility]y [facility] Work Phone: Evaluation note* Diagnosis Gastroesophageal reflux disease without esophagitis Esophageal reflux documented in this encounter [facility] note* Diagnosis Abnormal TSH- Primary Other abnormal clinical finding documented in this encounter [facility] note* Diagnosis Left upper quadrant abdominal pain- Primary documented in this encounter [facility] note* Diagnosis Abdominal pain, generalized- Primary Adrenal adenoma, unspecified laterality Pneumobilia documented in this encounter [facility] note* Diagnosis Syncope, unspecified syncope type- Primary Closed head injury, initial encounter documented in this encounter [facility] note* Diagnosis Chest pain, unspecified type- Primary Dizziness Dizziness and giddiness documented in this encounter [facility] note* Diagnosis Viral URI with cough- Primary Acute cough Chronic dyspnea Muscular aches Unspecified myalgia and myositis Diffuse arthralgia Bee sting allergy Does not have primary care provider [facility] [facility] note* Diagnosis Encounter for medical screening examination- Primary documented in this encounter [facility] note* Diagnosis Moderate left ankle sprain, initial encounter- [facility] Additional Instructions Please take Tylenol, ibuprofen as needed for further pain control. Please return if develop loss of sensation, coolness to touch, change in appearance, numbness, [facility] Consultation (Routine) - Pending Review Specialty Diagnoses / Procedures Referred By Contac t Referred To Contact Internal Medicine Diagnoses Left upper quadrant abdominal pain Procedures AL OFFICE/OUTPATIENT [facility] 60-74 MINUTES Yuliana Peck APRN [address] [place] [address] [facility] [address] [facility] [address] [place] [address] Referral ID Status Reason Start Date Expiration Date Visits Requested Visits Authorized [id number] Pending Review Specialty Services Required 10/04/2023 10/03/2024 1 1 [facility] for referral (narrative)* Consultation (Routine) - Pending Review Specialty Diagnoses / Procedures Referred By Contac t Referred To Contact Internal Medicine Diagnoses Abdominal pain, generalized Procedures AL OFFICE/OUTPATIENT [facility] MDM 60 MINUTES Minor Bartlett PA-C [address] [place] [address] [facility] [address] [place] [address] Referral ID Status Reason Start Date Expiration Date Visits Requested Visits Authorized [id number] Pending Review Specialty Services Required 03/19/2024 03/19/2025 1 1 [facility] for referral (narrative)* Consultation (Routine) - Pending Review Specialty Diagnoses / Procedures Referred By Contac t Referred To Contact Internal Medicine Diagnoses Syncope, unspecified syncope type Closed head injury, initial encounter Procedures AL OFFICE/OUTPATIENT [facility] 60 MINUTES Yuliana Peck, MOLD UNLOADER [address] [place] [address] [facility] [address] [facility] [address] [place] [address] Referral ID Status Reason Start Date Expiration Date Visits Requested Visits Authorized [id number] Pending Review Specialty Services Required 04/13/2024 04/13/2025 1 1 [facility] (narrative)* Consultation (Routine) - Pending Review Specialty Diagnoses / Procedures Referred By Contac t Referred To Contact Family Medicine Diagnoses Chronic dyspnea Does not have primary care provider Procedures AL OFFICE/OUTPATIENT [facility] 60 MINUTES Gamaliel Mo DO [address] [place] [address] [facility] [address] [facility] [address] [place] [address] Referral ID Status Reason Start Date Expiration Date Visits Requested Visits Authorized [id number] Pending Review Specialty Services Required 08/13/2024 08/13/2025 1 1 [facility] Summary Purpose Family History No Family History Records Found Relationship Condition Age at Onset Recorded Date/T carlton Not Specified Disorder of liver Unknown Malignant neoplasm of colon Unknown Osteoporosis Unknown Alcoholism Unknown Arthritis Unknown Cardiac disease Unknown Hyperlipidemia Unknown Kidney disorder Unknown Malignant neoplasm of breast Unknown Anxiety and depression Unknown Malignant neoplasm Unknown Hypertension Unknown Disorder of thyroid Unknown Cerebrovascular accident (CVA) Unknown Asthma Unknown aunt Diabetes mellitus Unknown father Myocardial infarction 50 grandmother Myocardial infarction 70 Advance Directives No Advanced Directives Records Found Advance Directive Response Recorded Date/ Time Living Will No September 20 7:35pm Power of Concrete Buildings Assembler No September 20, 2022 7:35pm Date Activated Date Inactivated Comments 12/06/2024 12:14 AM 12/06/2024 6:35 PM Reason for Referral Specialty Diagnoses / Procedures Referred By Contac t Referred To Contact Gynecology Diagnoses Abnormal menstruation Procedures CONSULT TO GYNECOLOGY OFFICE/OUTPATIENT [facility] 60-74 MINUTES Kylah Bruno APRN.ON SITE NURSE [address] [place] [address] Referral ID Status Reason Start Date Expiration Date Visits Requested Visits Authorized [id number] Authorized PCP Requested Referral Auto-Generate d Referral 03/07/2022 03/07/2023 1 1 Specialty Diagnoses / Procedures Referred By Contac t Referred To Contact XR IMAGING Diagnoses Chronic left hip pain Procedures XR HIP GENERAL 3V PELV/AP/LAT LEFT RADEX HIP UNILATERAL WITH PELVIS 2-3 VIEWS Kylah Bruno APRN.ON SITE NURSE [address] [place] [address] Xr Imaging Referral ID Status Reason Start Date Expiration Date Visits Requested Visits Authorized [id number] Authorized Auto-Generat ed Referral 03/07/2022 04/06/2023 1 1 Chief Complaint and Reason for Visit Chief Complaint RIGHT ANKLE Additional Source Comments INFORMATION SOURCE (unrecogn ized section and content) DATE CREATED AUTHOR 07/15/2020 [facility] DATE CREATED AUTHOR AUTHOR'S ORGANIZ ATION 09/28/2022 [facility] DATE CREATED AUTHOR AUTHOR'S ORGANIZ ATION 03/22/2023 [facility] DATE CREATED AUTHOR AUTHOR'S ORGANIZ ATION 05/05/2023 [facility] ([place]) DATE CREATED AUTHOR AUTHOR'S ORGANIZ ATION 09/14/2024 [facility] DATE CREATED AUTHOR AUTHOR'S ORGANIZ ATION 03/23/2025 [facility] Source Comments (unrecognize d section and content) In the event this informatio n is protected by the Federal Confidentiality of Alcohol and Drug Abuse Patient Records regulations: The Federal rules restrict any use of the information to criminally investigate or prosecute any alcohol or drug abuse patient.[facility] the event this information is protected by the Federal Confidentiality of Alcohol and Drug Abuse Patient Records regulations: The Federal rules restrict any use of the information to criminally investigate or prosecute any alcohol or drug abuse patient.[facility] the event this information is protected by the Federal Confidentiality of Alcohol and Drug Abuse Patient Records regulations: The Federal rules restrict any use of the information to criminally investigate or prosecute any alcohol or drug abuse patient.[facility] the event this information is protected by the Federal Confidentiality of Alcohol and Drug Abuse Patient Records regulations: The Federal rules restrict any use of the information to criminally investigate or prosecute any alcohol or drug abuse patient.[facility] the event this information is protected by the Federal Confidentiality of Alcohol and Drug Abuse Patient Records regulations: The Federal rules restrict any use of the information to criminally investigate or prosecute any alcohol or drug abuse patient.[facility] Campus[facility] the event this information is protected by the Federal Confidentiality of Alcohol and Drug Abuse Patient Records regulations: The Federal rules restrict any use of the information to criminally investigate or prosecute any alcohol or drug abuse patient.[facility] Reason for Visit (unrecogniz ed section and content) Reason Comments Physical Annual Physical Reason Comments Refill Request Reason Onset Date Comments Refill Request 01/09/2023 Reason Comments Results Reason Comments Patient Update Reason Comments Abdominal Pain Patient states that she has not had a period since February, patient states that she feels like something is moving in her stomach. Patient also reports back pain, nausea, vomiting, loss of appetite. Patients doctor said she is but today when she had an ultrasound it didn't show anything. Reason Comments Abdominal Pain Pt states having abd omen pain today that started 3 hours ago. Pt states having on and off abdomen pain for past 3 months. Pt states abdomen pain in all quadrants. Pt states history of hernia. Pt states having vomiting. Pt denies any fever. Reason Onset Date Comments Other 03/26/2024 Reason Comments Syncope Pt states she had a syncopal event in the elevator here. States she hit the back of her head. States she has syncopal events often. Reason Comments Chest Pain Pt states having jos[address] pains for past 2-3 days. Pt states having dizziness. Pt states chest pain in center of her chest, and that the pain goes down both arms. Pt states having breathing problem for past 20 min. Pt states coughing up red sputum. Pt states denies other around her being sick. Reason Comments Chest Pain Pt comes in stating she was having severe CP and dizziness that began today, that she almost fell down the stairs Reason Comments Cough Barking cough that s he's not sure when started. Think it's related to her smoking. Ibuprofen for inflammation. Reason Comments Psychiatric Evaluation Pt sent by therap ist for crisis evaluation. Pt she she does not want to but is unable to make people around her satisfied. Pt states she has multiple personalities. I am everywhere but nowhere I feel like I'm always losing denies HI. Pt admits to new voice in her head names fabien Reason Comments Ankle Pain Pt states she fell a nd injured her L ankle and is having difficulty walking on it Care Teams (unrecognized sec tion and content) Steamfitter Apprentice Relationship Specialty Start Date End Date Selena Robert MD [address] [place], [place] [id number] PCP - General Internal Medicine 11/06/17 Steamfitter Apprentice Relationship Specialty Start Date End Date Selena Robert MD [address] [place] [address] PCP - General Internal Medicine 11/06/17 Steamfitter Apprentice Relationship Specialty Start Date End Date Selena Robert MD [address] [place] [address] PCP - General Internal Medicine 11/06/17 Steamfitter Apprentice Relationship Specialty Start Date End Date Selena Robert MD [address] [place] [address] PCP - General Internal Medicine 11/06/17 Steamfitter Apprentice Relationship Specialty Start Date End Date Selena Robert MD [address] [place] [address] PCP - General Internal Medicine 11/06/17 Goals (unrecognized section and content) Goals may be documented in a n alternate section Scheduled Active and Recently Administ ered Medications (unrecognized section and content) Medication Order 10/02/2023 10/03/2023 10/04/2023 dicyclomine (Bentyl) injection 20 mg (COMPLETED) 20 mg, IntraMUSCular, Once, On Mon10/04/23 at 2050, For 1 dose 2101 (Given - Provid er: Jodie Clarke RN) PRN Medication Order 10/02/2023 10/03/2023 10/04/2023 iopamidol (Isovue-370) 76 % injection 75 mL (COMPLETED) 75 mL, IntraVENous, IMG once PRN, contrast, Starting on Mon10/04/23 at 2118, For 1 dose 2118 (Given - Provid er: KIMBERLY Yao) Scheduled Medication Order 03/17/2024 03/18/2024 03/19/2024 ketorolac (Toradol) injection 15 mg (COMPLETED) 15 mg, IntraVENous, Once, On Mon03/18/24 at 2305, For 1 dose 2306 (Given - Provider: Sylvia Glass RN) ondansetron (Zofran) injection 4 mg (COMPLETED) 4 mg, IntraVENous, Once, On Mon03/18/24 at 2305, For 1 dose 230 (Given - Provider: Sylvia Glass, SEAN) sodium chloride 0.9 % bolus 1,000 mL (COMPLETED) 1,000 mL, IntraVENous, at 1,000 mL/hr, Administer over 1 Hours, Once, On Mon03/18/24 at 2305, For 1 dose 230 (New Bag - Provider: Sylvia Glass RN) 0046 (Stopped - Provider: Sylvia Glass, SEAN) PRN Medication Order 03/17/2024 03/18/2024 03/19/2024 iopamidol (Isovue-370) 76 % injection 75 mL (COMPLETED) 75 mL, IntraVENous, IMG once PRN, contrast, Starting on Mon03/18/24 at 2352, For 1 dose 235 (Given - Provider: Pedro Singh, RT (R)) Scheduled Medication Order 04/11/2024 04/12/2024 04/13/2024 acetaminophen (Tylenol) tablet 1,000 mg (COMPLETED) 1,000 mg, Oral, Once, On 04/13/24 at 1635, For 1 dose, Maximum dose of acetaminophen is 4000 mg from all sources in 24 hours. 175 (Given - Provid er: Rosa Ewing LPN) busPIRone (Buspar) tablet 30 mg (COMPLETED) 30 mg, Oral, Once, On 04/13/24 at 2110, For 1 dose 2156 (Given - Provid er: Melissa Gilbert RN) FLUoxetine (PROzac) capsule 20 mg (COMPLETED) 20 mg, Oral, Once, On 04/13/24 at 2110, For 1 dose 2156 (Given - Provid er: Melissa Gilbert RN) Scheduled Medication Order 06/20/2024 06/21/2024 06/22/2024 albuterol (2.5 MG/3ML) 0.083% nebulizer solution 2.5 mg (COMPLETED) 2.5 mg, Nebulization, Once, On 06/22/24 at 1500, For 1 dose 160 (Given - Provid er: Kylie Moore RN) ipratropium-albuterol (Duo-Neb) 0.5-2.5 mg/3 mL nebulizer solution 3 mL (COMPLETED) 3 mL, Nebulization, Once, On 06/22/24 at 1430, For 1 dose 1610 (Given - Provid er: Kylie Moore RN) ketorolac (Toradol) injection 30 mg (COMPLETED) 30 mg, IntraVENous, Once, On 06/22/24 at 1430, For 1 dose 1552 (Given - Provid er: Kylie Moore RN) methylPREDNISolone sodium succinate (PF) (SOLU-Medrol) injection 125 mg (COMPLETED) 125 mg, IntraVENous, Once, On 06/22/24 at 1430, For 1 dose 1555 (Given - Provid er: Kylie Moore RN) morphine injection 4 mg (COMPLETED) 4 mg, IntraVENous, Once, On 06/22/24 at 1430, For 1 dose, If oral and IV narcotics ordered, use oral first and only use IV if oral is ineffective or cannot take oral. Do Not give oral and IV within 1 hour of each other unless specifically ordered. 160 (Given - Provid er: Kylie Moore RN) ondansetron (Zofran) injection 4 mg (COMPLETED) 4 mg, IntraVENous, Once, On 06/22/24 at 1430, For 1 dose 1554 (Given - Provid er: Kylie Moore RN) sodium chloride 0.9 % bolus 500 mL (COMPLETED) 500 mL, IntraVENous, at 500 mL/hr, Administer over 1 Hours, Once, On 06/22/24 at 1430, For 1 dose 1559 (New Bag - Prov ider: Kylie Moore RN)1659 (Stopped - Provider: Kylie Moore RN) PRN Medication Order 06/20/2024 06/21/2024 06/22/2024 iopamidol (Isovue-370) 76 % injection 75 mL (COMPLETED) 75 mL, IntraVENous, IMG once PRN, contrast, Starting on 06/22/24 at 1832, For 1 dose 1832 (Given - Provid er: Jud Torrez, RT (R)(CT)) Scheduled Medication Order 06/30/2024 07/01/2024 07/02/2024 aspirin chewable tablet 324 mg (COMPLETED) 324 mg, Oral, Once, On Mon07/02/24 at 1205, For 1 dose 1310 (Given - Provid er: Theresa Parkinson LPN) meclizine (Antivert) tablet 25 mg (COMPLETED) 25 mg, Oral, Once, On Mon07/02/24 at 1215, For 1 dose 1311 (Given - Provid er: Theresa Parkinson LPN) sodium chloride 0.9 % bolus 1,000 mL 1,000 mL, IntraVENous, at 1,000 mL/hr, Administer over 1 Hours, Once, On Mon07/02/24 at 1215, For 1 dose 1215 (Not Given - Pr ovider: Theresa Parkinson LPN - Reason: Patient/family refused - Comment: states over hydrated and does not want fluids.) Scheduled Medication Order 03/19/2025 03/20/2025 03/21/2025 acetaminophen (Tylenol) tablet 1,000 mg (COMPLETED) 1,000 mg, Oral, Once, On Mon03/21/25 at 1815, For 1 dose, Maximum dose of acetaminophen is 4000 mg from all sources in 24 hours. 1815 (Given - Provid er: Kerry Zuniga RN) FOR RECORDS PERTAINING TO PATIENTS WHO ARE OR HAVE BEEN ENROLLED IN A CHEMICAL DEPENDENCY/SUBSTANCEABUSE PROGRAM, SOME INFORMATION MAY BE OMITTED. This clinical summary was aggregated from multiple sources. Caution should be exercised in using it in the provision of clinical care. This summary normalizes information from multiple sources, and as a consequence, information in this document may materially change the coding, format and clinical context of patient data. In addition, data may be omitted in some cases. CLINICAL DECISIONS SHOULD BE BASED ON THE PRIMARY CLINICAL RECORDS. [facility]. provides no warranty or guarantee of the accuracy or completeness of information in this document.
[2025-05-18 13:51] VITALS: BP 124/84; PULSE 89; RESP 16; O2SAT 98
[2025-05-18 14:00] VITALS: BP 133/77; PULSE 87; RESP 16; O2SAT 99
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
[2025-05-18] MEDS: DiphenhydrAMINE 25 MG Capsule PO (14:12)
[2025-05-18] MEDS: Famotidine 20 MG Tablet PO (14:12)
--- NOTE | 2025-05-18 14:28 | EX.ED.DYSGE1 ---
HPI History of Present Illness Chief Complaint: Allergic Reaction Detail of Chief Complaint: Patient states she was bit by a bug and is having allergic reaction Informant: patient Onset/Context/Timing Onset: Hours Context: Sudden Onset Timing: Continuous Quality: Tickling in throat Location: Posterior pharynx Current Severity: Mild Maximum Severity: Mild Worsened by: She states she is allergic to hymenoptera envenomation. She was bit by a b Relieved by: Benadryl Associated Symptoms Associated Symptoms: No other symptoms Narrative Narrative: Patient is a 35-year-old female who is cognitively impaired. 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 She presents because she needs an EpiPen. She denies swelling of her lips, tongue or throat. She denies any swelling of her face. She denies shortness of breath or wheezing. She denies palpitations or lightheadedness. She denies abdominal pain, nausea or vomiting. She denies rash. She took Benadryl prior to arrival. [facility] Medical History Depression Choledocholithiasis Suicidal thoughts Memory loss Schizophrenia Bipolar 1 disorder Seizures Hypertension GERD (gastroesophageal reflux disease) IBS (irritable bowel syndrome) Hypocalcemia Neuropathy Anxiety and depression History of substance abuse Asthma Arthritis Seasonal allergies History of alcohol abuse Home Medications ?Medication ?Instructions ?Recorded ?Last Taken ?Type omeprazole 20 mg capsule,delayed 20 mg PO DAILY GERD 03/10/18 09/11/20 History release haloperidol 5 mg tablet 5 mg PO DAILY psych 06/15/19 08/05/21 08:30 History albuterol sulfate 90 mcg/actuation 2 puff inhalation Q6H PRN 11/25/20 Unknown History aerosol inhaler (Ventolin HFA) Shortness Of Breath folic acid 1 mg tablet 1 mcg PO DAILY supplement 06/06/21 07/08/21 History jospyqvo-yhqpom-IZ-thonzonm 3.3 4 drp LEFT EAR TID 7 days #10 mL 06/07/21 Unknown Rx mg-3 mg-10 mg-0.5 mg/mL ear drops,susp (Cortisporin-TC) trazodone 100 mg tablet 100 mg PO QHS sleep 07/08/21 07/08/21 History haloperidol decanoate 50 mg/mL 50 mg IM QMONTH psych 07/09/21 06/27/21 History intramuscular solution ibuprofen 400 mg tablet 400 mg PO Q4H PRN PRN Pain 1-10 Or 07/10/21 Unknown Rx Fever #0 tabs oxycodone 5 mg tablet 5 - 10 mg (1 - 2 x 5 mg) PO Q6H 07/10/21 Unknown Rx PRN pain 5 days #20 tabs Allergy/AdvReac Type Severity Reaction Status Date / Time Bleach (Sodium Hypochlorite) Allergy Mild rash Verified 05/18/25 12:49 acetaminophen Allergy breaks Verified 05/18/25 12:49 out in hives and throat swells shut bacitracin Allergy Unknown Verified 05/18/25 12:49 Latex, Natural Rubber Allergy Rash Verified 05/18/25 12:49 Penicillins Allergy Unknown Verified 05/18/25 12:49 Family History Aunt Diabetes Father Myocardial infarction, Onset Age: 50 Grandmother Myocardial infarction, Onset Age: 70 Other Alcoholism Anxiety and depression Arthritis Asthma Breast cancer CVA (cerebral vascular accident) Cancer Colon cancer Heart disease Hyperlipemia Hypertension Kidney disease Liver disease Osteoporosis Thyroid disorder Surgical History S/P ERCP S/P laparoscopic cholecystectomy History of removal of cyst History of hernia repair History of breast biopsy Social History Smoking Status: Former smoker Tobacco: How many years used: 22 alcohol intake: current substance use type: marijuana what type of physical activity do you participate in: walking and bicycling ROS ROS ED Constitutional Constitutional ED: Denies chills or fever(s) Eyes Eyes: Denies blurry vision or change in vision ENT ENT ED: Reports other Details: HPI narrative ; Denies ear pain, rhinorrhea or sore throat Cardiovascular Cardiovascular: Denies chest pain or palpitations Respiratory/Chest Respiratory/Chest: Denies cough, dyspnea or dyspnea on exertion Gastrointestinal Gastrointestinal: Denies abdominal pain, nausea or vomiting Musculoskeletal Musculoskeletal: Denies arthralgias or myalgias Integumentary Denies rash Neurologic Neurologic: Denies paresthesias or weakness Psychiatric Psychiatric: Reports anxiety Hematologic/Lymphatic Hematologic/Lymphatic: Reports systems reviewed and no addt'l complaints, except as documented EXAM Physical Exam Const Vital Signs: 05/18/25 12:49 05/18/25 13:51 05/18/25 14:00 Temperature 97.8 F Temperature Source Oral Pulse Rate 91 89 87 Respiratory Rate 18 16 16 Blood Pressure 133/81 H 124/84 H 133/77 H Blood Pressure Mean 98 97 95 Pulse Ox 94 98 99 Oxygen Delivery Method Room Air Room Air Room Air Positive well nourished and well developed Constitutional Narrative: BMI is 49.4. General Appearance ED: well developed and NAD; Negative for cyanotic, diaphoretic or pallor HEENT Reports moist mucous membranes HEENT Narrative: Head is atraumatic normocephalic. Ears normal. TMs normal. Nares patent. There is no evidence of angioedema. Posterior pharynx is normal. Uvula is midline. There is no deviation of tongue with protrusion Eyes PERRL and EOMs intact bilaterally General Eye ED: Negative for pale conjunctiva or scleral icterus Neck no lymphadenopathy, supple and no JVD Neck Narrative: Trachea is midline. There is no inspiratory expiratory stridor Chest Wall inspection of chest normal and palpation of chest normal Resp normal respiratory effort and clear to auscultation bilaterally Cardio regular rate, regular rhythm, S1 normal heart sound, S2 normal heart sound and no murmurs GI normal to inspection, nondistended, normoactive bowel sounds, non-tender and non-distended Extremity normal to inspection Extremity Narrative: There is no clubbing or cyanosis. Capillary refill is normal General Extremety ED: Negative for edema or tenderness General Extremity: Negative for edema Neuro oriented x3 and CN's II-XII intact bilaterally Sensorium / Orientation: alert Psych Mood & Affect: anxious Skin no rashes or lesions noted and no wounds Skin Narrative: Positive sunburn General Skin Exam: Negative for jaundice or pallor MDM MDM MDM Narrative Medical decision making narrative: Patient with reported allergic reaction. There is no objective findings. In my opinion epinephrine is not indicated. IV Benadryl Pepcid was ordered because she is complaining about tickling sensation in her throat. Patient became anxious and began hyperventilating when she was told an IV was can be placed. Her meds were switched to p.o. Will observe. 1 would expect if she was going to have a reaction she would have had it already since some time is passed. Treatment and Re-Evaluation :: I became aware at 1452 the patient went to go home. She was reassessed. There is no angioedema. There is no dysphonia. There is no stridor. Patient's tickling sensation has disappeared. Will discharge to home. Discharge Plan Triage Chief Complaint: Allergic Reaction ED Provider: Rustam Harrison Dx/Rx/DC Orders Clinical Impression: Insect bite, Hypertension, Bipolar 1 disorder, Schizophrenia, Seasonal allergies, Anxiety reaction, Cognitive impairment, Adult BMI 45.0-49.9 kg/sq m Instructions: ED Insect Bite Prescriptions: No Action albuterol sulfate [Ventolin HFA] 90 mcg/actuation HFA aerosol inhaler 2 puff INHALATION Q6H PRN (Reason: Shortness Of Breath) omeprazole 20 MG capsule 20 mg PO DAILY haloperidol 5 tablet 5 mg PO DAILY folic acid 1 mg tablet 1 mcg PO DAILY Cortisporin-TC 3.3-3-10-0.5 mg/mL drops,suspension 4 drp LEFT EAR TID 7 Days Qty: 10 0RF trazodone 100 mg tablet 100 mg PO QHS haloperidol decanoate 50 mg/mL solution 50 mg IM QMONTH ibuprofen 400 mg Tablet 400 mg PO Q4H PRN PRN (Reason: Pain 1-10 Or Fever) Qty: 0 0RF oxycodone 5 mg tablet 5 - 10 mg PO Q6H PRN (Reason: pain) 5 Days Qty: 20 0RF Primary Care Provider: Gayatri Grubbs Referrals: Gayatri Grubbs MD [Primary Care Provider] - As Needed Print Language: Tajik Disposition Disposition: Home, Self Care
[2025-05-18 14:59] VITALS: BP 122/68; PULSE 82; RESP 16; TEMP 36.6; O2SAT 99
--- NOTE | 2025-05-18 21:56 | CM.ED ---
Social Work Physician Advisor called the [facility] [place] and spoke with Kassie who stated patient reached out to them at the end of February to see if she was eligible for services and is still going through the intake process but was recently assigned to someone. Kassie took the report, will follow up and will call clinical social worker's cistern room working supervisor should she have any additional questions/concerns. Sushila Posada, T[employer] [address] TUTOR, STREET LIGHT REPAIRER HELPER
== END 2025-05-18 15:00 | disposition home or self-care (01) ==
PROVIDERS: Emergency Provider Emergency Medicine; PCP Internal Medicine; Visit Provider Emergency Medicine
DX: R09.89 Other specified symptoms and signs involving the circulatory and respiratory systems (principal); F20.9 Schizophrenia, unspecified; F31.9 Bipolar disorder, unspecified; T14.8XXA Other injury of unspecified body region, initial encounter; R06.4 Hyperventilation; W57.XXXA Bitten or stung by nonvenomous insect and other nonvenomous arthropods, initial encounter; J30.2 Other seasonal allergic rhinitis; R41.89 Other symptoms and signs involving cognitive functions and awareness; F41.1 Generalized anxiety disorder; K58.9 Irritable bowel syndrome, unspecified; I10 Essential (primary) hypertension; Z79.899 Other long term (current) drug therapy; Z87.891 Personal history of nicotine dependence
CPT/HCPCS: 99285

== ENCOUNTER 2025-07-17 18:19 | Emergency (ER) | payer MEDICAID, SELFPAY ==
[2025-07-17 18:20] VITALS: BP 152/103; PULSE 89; RESP 20; TEMP 36.6; O2SAT 99; BMI 52.7
--- NOTE | 2025-07-17 19:23 | EDS_ITS ---
HPI HPI - Female History of Present Illness Chief Complaint: Informant: patient and family Narrative Narrative: 35-year-old female states for the past 3 days she has had some perineal/vaginal discomfort so she has been sticking her finger in her vagina and feeling that it is sore. She states her last normal menstrual cycle was 8 months ago and she has had several urine and blood tests that were positive for . She states she is from [place], which is where her OB is. She states she last had an ultrasound in April and does not remember what they said about how far along she is. She states she is a G4, by miscarriage. She denies any fevers, chills, nausea, vomiting, diarrhea, she has some mild dysuria and some urinary frequency but no hematuria, along with some mild pelvic discomfort. No vaginal discharge she denies having any vaginal bleeding recently. She states before a month ago she was regular. She states she was recently kicked out of her living situation so she came down here to [facility]. [facility] Medical History Depression Choledocholithiasis Suicidal thoughts Memory loss Schizophrenia Bipolar 1 disorder Seizures Hypertension GERD (gastroesophageal reflux disease) IBS (irritable bowel syndrome) Hypocalcemia Neuropathy Anxiety and depression History of substance abuse Asthma Arthritis Seasonal allergies History of alcohol abuse Home Medications ?Medication ?Instructions ?Recorded ?Last Taken ?Type omeprazole 20 mg capsule,delayed 20 mg PO DAILY GERD 0 03/10/18 09/11/20 History release haloperidol 5 mg tablet 5 mg PO DAILY psych 06/15/19 08/05/21 08:30 History albuterol sulfate 90 mcg/actuation 2 puff inhalation Q 6H PRN 11/25/20 Unknown History aerosol inhaler (Ventolin HFA) Shortness Of Breath folic acid 1 mg tablet 1 mcg PO DAILY supplement 07/08/21 History [id number]-[id number]-[id number]-thonzonm 3.3 4 drp LEFT EAR TID 7 d ays #10 mL 06/07/21 Unknown Rx mg-3 mg-10 mg-0.5 mg/mL ear drops,susp (Cortisporin-TC) trazodone 100 mg tablet 100 mg PO QHS sleep 07/08/21 07/08/21 History haloperidol decanoate 50 mg/mL 50 mg IM QMONTH psych 0 07/09/21 06/27/21 History intramuscular solution ibuprofen 400 mg tablet 400 mg PO Q4H PRN PRN Pain 1 -10 Or 07/10/21 Unknown Rx Fever #0 tabs oxycodone 5 mg tablet 5 - 10 mg (1 - 2 x 5 mg) PO Q6H 07/10/21 Unknown Rx PRN pain 5 days #20 tabs Allergy/AdvReac Type Severity Reaction Status Date / Time Bleach (Sodium Hypochlorite) Allergy Mild rash Verified 07/17/25 18:27 acetaminophen Allergy breaks Verified 07/17/25 18:27 out in hives and throat swells shut bacitracin Allergy Unknown Verified 07/17/25 18:27 Latex, Natural Rubber Allergy Rash Verified 07/17/25 18:27 Penicillins Allergy Unknown Verified 07/17/25 18:27 Family History Aunt Diabetes Father Myocardial infarction, Onset Age: 50 Grandmother Myocardial infarction, Onset Age: 70 Other Alcoholism Anxiety and depression Arthritis Asthma Breast cancer CVA (cerebral vascular accident) Cancer Colon cancer Heart disease Hyperlipemia Hypertension Kidney disease Liver disease Osteoporosis Thyroid disorder Surgical History S/P ERCP S/P laparoscopic cholecystectomy History of removal of cyst History of hernia repair History of breast biopsy Social History Smoking Status: Current every day smoker tobacco type: cigarettes and e- cigarettes Tobacco: How many years used: 22 alcohol intake: current substance use type: marijuana what type of physical activity do you participate in: walking and bicycling ROS ROS ED Constitutional Constitutional ED: Denies chills or fever(s) Eyes Eyes: Denies change in vision or diplopia ENT ENT ED: Denies rhinorrhea or sore throat Cardiovascular Cardiovascular: Denies chest pain or palpitations Respiratory/Chest Respiratory/Chest: Denies cough or dyspnea Gastrointestinal Gastrointestinal: Reports abdominal pain; Denies diarrhea, nausea or vomiting Genitourinary Genitourinary ED: Reports as per HPI, dysuria and urinary frequency; Denies hematuria Musculoskeletal Musculoskeletal: Denies back pain or neck pain Integumentary Denies abscess or rash Neurologic Neurologic: Denies headache(s), paresthesias or weakness Psychiatric Psychiatric: Denies anxiety or suicidal thoughts EXAM Physical Exam Const Vital Signs: 07/17/25 18:20 Temperature 97.9 F Temperature Source Temporal Pulse Rate 89 Respiratory Rate 20 H Blood Pressure 152/103 H Blood Pressure Mean 119 Pulse Ox 99 Oxygen Delivery Method Room Air Positive well nourished and well developed General Appearance ED: well developed and NAD HEENT Reports moist mucous membranes normocephalic and atraumatic Eyes PERRL and EOMs intact bilaterally Neck full ROM and supple Resp normal respiratory effort and clear to auscultation bilaterally Cardio regular rate, regular rhythm and no murmurs GI non-tender and non-distended GI Narrative: morbidly obese Auscultation: normoactive bowel sounds Palpation: soft Back/Spine no CVA tenderness General Back: other FROM Extremity normal to inspection General Extremety ED: Negative for edema, pulses abnormal or tenderness General Extremity: Negative for edema or pulses abnormal Neuro oriented x3, CN's II-XII intact bilaterally and no sensory deficits noted Sensorium / Orientation: awake and alert Motor Exam: strength 5/5 throughout Skin no rashes or lesions noted and no wounds MDM MDM MDM Narrative Medical decision making narrative: Given patient's history I started with doing a bedside ultrasound. Throughout the pelvis, I see no obvious signs of a . I see a small area behind the bladder that may be endometrium/uterus. It is difficult to tell, limited by body habitus, there may be a double decidual sign, and if this is then the gestational sac is consistent with a 6W6D . There is no heartbeat detectable. Unclear if this is truly a or not, I sent for a urine test and urinalysis. It is normal and her is negative. 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 Lab Data Attestation: I reviewed the patient's lab results. Labs: Laboratory Results - last 24 hr 07/17/25 19:50 Urine Color Straw Urine Clarity Clear Urine pH 6.0 Ur Specific [place] 1.015 Urine Protein 15 H Urine Glucose (UA) Normal Urine Ketones Negative Urine Occult Blood Negative Urine Nitrite Negative Urine Bilirubin Negative Urine Urobilinogen Normal Ur Leukocyte Esterase Negative Urine Test Negative Discharge Plan Triage Chief Complaint: ED Provider: Terell,Conor Dx/Rx/DC Orders Clinical Impression: Perineal pain in female, Urinary frequency, Amenorrhea Instructions: ED Amenorrhea Prescriptions: No Action albuterol sulfate [Ventolin HFA] 90 mcg/actuation HFA aerosol inhaler 2 puff INHALATION Q6H PRN (Reason: Shortness Of Breath) omeprazole 20 MG capsule 20 mg PO DAILY haloperidol 5 tablet 5 mg PO DAILY folic acid 1 mg tablet 1 mcg PO DAILY Cortisporin-TC 3.3-3-10-0.5 mg/mL drops,suspension 4 drp LEFT EAR TID 7 Days Qty: 10 0RF trazodone 100 mg tablet 100 mg PO QHS haloperidol decanoate 50 mg/mL solution 50 mg IM QMONTH ibuprofen 400 mg Tablet 400 mg PO Q4H PRN PRN (Reason: Pain 1-10 Or Fever) Qty: 0 0RF oxycodone 5 mg tablet 5 - 10 mg PO Q6H PRN (Reason: pain) 5 Days Qty: 20 0RF Primary Care Provider: Gayatri Grubbs Referrals: Gayatri Grubbs MD [Primary Care Provider] - 3-5 Days if not improving Print Language: Kiswahili Disposition Disposition: Home, Self Care
[2025-07-17 20:01] LABS: Mucous, Urine 0 SEEN /hpf (<or=2+)
[2025-07-17 20:06] LABS: Color, Urine Straw (Yellow); Glucose, Dipstick Normal (Normal); Ketone-Dipstick Negative (Negative); Leukocyte Esterase-Dipstick Negative /ul (Negative); Nitrite-Dipstick Negative (Negative); Occult Blood-Urine Negative /ul (Negative); Protein-Dipstick 15 mg/dl (Negative); Specific Gravity, Urine 1.015 (1.002-1.030); Urine Bilirubin Dipstick Negative (Negative)
[2025-07-17 20:07] LABS: Internal QC Validated? YES +Cl - CLEAR BKGD; Pregnancy, Urine Negative Negative; Record Kit Lot#,Urine Preg 964736
[2025-07-17 20:26] LABS: Red Blood Cells-Urine 0-5 SEEN /hpf (0-5); Squamous Epithelial Cells - UA 0-5 SEEN /hpf (5-10)
== END 2025-07-17 20:27 | disposition home or self-care (01) ==
PROVIDERS: Emergency Provider Emergency Medicine; PCP Internal Medicine; Visit Provider Emergency Medicine
DX: R10.2 Pelvic and perineal pain (principal); F20.9 Schizophrenia, unspecified; F31.9 Bipolar disorder, unspecified; N91.2 Amenorrhea, unspecified; I10 Essential (primary) hypertension; R35.0 Frequency of micturition; K21.9 Gastro-esophageal reflux disease without esophagitis; F17.210 Nicotine dependence, cigarettes, uncomplicated; F17.290 Nicotine dependence, other tobacco product, uncomplicated; Z79.899 Other long term (current) drug therapy
CPT/HCPCS: 81001; 81025; 99282

== ENCOUNTER 2025-08-23 21:03 | Emergency (ER) | payer MEDICAID, SELFPAY ==
--- OUTSIDE RECORDS SUMMARY | 2025-03-21 17:45 | XMS RPT_ITS ---
Author Name Auto Generated Organization OHIP Care Team Providers Care Odd Piece Checker Name Role Phone LEX DEVINE Attending Unavailable LEX DEVINE Admitting Unavailable RANULFO ELIZONDO Attending Unavailable PROBLEMS DATE TYPE CONDITION / CODE ATTENDING STATUS [facility] 03/21/2025 Admitting Diagnosis Sprain of unspecified ligament of left ankle, initial encounter / S93.402A(ICD-10) NA [facility] 12/06/2024 Admitting Diagnosis Brief psychotic disorder (HCC) / F23(ICD-10) LEX DEVINE [facility] 10/04/2024 Admitting Diagnosis Encounter for screening, unspecified / Z13.9(ICD-10) RANULFO ELIZONDO [facility] PROCEDURES No Procedure Records Found RESULTS CNPN Observed: 05/20/2025 12:00 AM Status: COMPLETED Source: [facility] Telephone (OBGYWM) TAZ CHRISTINE ([id number]) 1990 F CHT Date Time Provider Department 05/20/25 MARICARMEN BESS OBGYWM During your visit today, we recorded the following information about you: Melissa Lucia 05/20/2025 10:54 AM Signed Patient contacted office requesting to schedule new OB appointment and because she was experiencing tender/leaking breasts along with vaginal discomfort. Patient stated she was due to deliver May 2025 but unable to provide LMP. Patient reports she received confirmation of in February at [facility]. PSS spoke with triage nurse who advised patient report to ER [facility] to be reevaluated then contact [facility] to see if the practice could accept her as a patient. Patient notified of triage nurses instructions and voiced understanding. Trinity Perez MD 05/20/2025 11:38 AM Signed I see a negative testing from 12/21. She had ED visits in February and April. There is no mention of in either of those. Can more information be obtained on this patient please. Thanks! MD Blaine Colvin Jennifer, RN 05/21/2025 9:44 AM Signed [facility] ER. No records in Care Everywhere at any other locations either. Sushila Valladares RN Allergies As of Date: 05/20/2025 Noted Allergy Reaction LATEX 06/04/2010 2 - Rash PENICILLINS 06/04/2010 Comments: States mother told her she was allergic and doesn't rember what the reaction was Date Reviewed: 06/09/2024 Reviewed by: Samantha Bello, SEAN - Fully Assessed Reason for Visit: New OB [Other] Prescriptions as of 05/21/2025 - omeprazole (PRILOSEC) 20 mg capsule TAKE 1 CAPSULE BY MOUTH EVERY MORNING 1/2 HOUR BEFORE BREAKFAST - amantadine HCl (SYMMETREL) 100 mg capsule - INVEGA 3 mg 24 hr tablet TAKE 1 TABLET BY MOUTH ONCE DAILY IN THE MORNING - traZODone (DESYREL) 50 mg tablet - fluticasone (FLONASE) 50 mcg/actuation nasal spray Use 2 Sprays in each nostril once daily. Rinse mouth after use. - benztropine (COGENTIN) 1 mg tablet Take 1 mg by mouth twice daily. - hydrOXYzine pamoate (VISTARIL) 50 mg capsule 50 mg twice daily. - albuterol HFA (PROVENTIL HFA, VENTOLIN HFA) 90 mcg/actuation inhaler Inhale 2 Puffs as instructed every 4 hours as needed. Problem List As Of Date 05/20/2025 Noted Resolved Epigastric Abdominal Pain [R10.13] 06/04/2010 Reflux [CTT1864] 06/04/2010 Personal History of Other Psychological Trauma *06/04/2010 Renal Insufficiency [N28.9] 06/09/2010 Thrombocytopenia [D69.6] 06/09/2010 Bipolar disorder, unspecified (HCC) [F31.9] 06/19/2015 Skin lesion [L98.9] 11/19/2015 Migraine without aura [G43.009] 11/06/2017 PTSD (post-traumatic stress disorder) [F43.10] 11/06/2017 Severe depression (HCC) [F32.2] 11/06/2017 Schizophrenia (HCC) [F20.9] 11/06/2017 Chronic midline low back pain without sciatica *11/06/2017 Morbid obesity (HCC) [E66.01] 11/06/2017 Encounter Status:Closed by SUSHILA VALLADARES on 05/21/25 ED PROVIDER NOTE Observed: 03/21/2025 5:04 PM Status: COMPLETED Source: [facility] EMERGENCY DEPARTMENT ENCOUNT ER Pt Name: Taz Christine Birthdate 1990 Date of evaluation: 03/21/2025 ED Provider: Lois Winter PA-C CHIEF COMPLAINT Chief Complaint Patient presents with Ankle Pain Pt states she fell and injured her L ankle and is having difficulty walking on it HISTORY OF PRESENT ILLNESS (Location/Symptom, Timing/Onset, Context/Setting, Quality, Duration, Modifying Factors, Severity) Note limiting factors. I wore appropriate PPE for the entirety of this encounter. HPI Taz Christine is a 34 y.o. female who presents to the emergency department for evaluation of left ankle pain. Patient states a couple days ago she was stepping off a curb, and rolled her left ankle. States since then she has had pain from the middle of her foot into her ankle and up into the midportion of her whitaker. Denies any numbness, tingling, or weakness. No history of surgery or hardware placement. Did not fall to the ground, hit her head, or sustain a secondary injury. Has any numbness, tingling, or weakness. Has been ambulatory, but reports worsening pain with weightbearing. Nursing Notes were reviewed. Limitations to history: None Outside historians: None REVIEW OF SYSTEMS Review of Systems 14 systems reviewed, positives and pertinent negatives as per HPI. All other systems were reviewed and are negative. PAST MEDICAL HISTORY No past medical history on file. SURGICAL HISTORY No past surgical history on file. CURRENT MEDICATIONS Previous Medications ALBUTEROL 108 (90 BASE) MCG/ACT INHALER Inhale 2 puffs every 4 hours as needed for wheezing or shortness of breath. AMANTADINE (SYMMETREL) 100 MG CAPSULE EPINEPHRINE (EPIPEN) 0.3 MG/0.3ML INJECTION SYRINGE Inject 0.3 mL (0.3 mg) as directed Once as needed for anaphylaxis for up to 1 dose. Inject into upper leg. Call 911 after use. INVEGA SUSTENNA 234 MG/1.5ML SUSPENSION PREFILLED SYRINGE TRAZODONE (DESYREL) 50 MG TABLET Take 1 tablet by mouth daily at bedtime. ALLERGIES Latex, Pcn [penicillins], and Amoxicillin FAMILY HISTORY No family history on file. SOCIAL HISTORY Social History Socioeconomic History Marital status: Single Tobacco Use Smoking status: Former Types: Cigarettes Smokeless tobacco: Never Substance and Sexual Activity Alcohol use: Not Currently Comment: sober since nov 2022 Drug use: Yes Types: Marijuana Social Drivers of Health Financial Resource Strain: Patient Declined (12/06/2024) Overall Financial Resource Strain (CARDIA) Difficulty of Paying Living Expenses: Patient declined Food Insecurity: Patient Declined (12/06/2024) Hunger Vital Sign Worried About Running Out of Food in the Last Year: Patient declined Ran Out of Food in the Last Year: Patient declined Recent Concern: Food Insecurity - Food Insecurity Present (09/12/2024) Received from [facility] Hunger Vital Sign Worried About Running Out of Food in the Last Year: Often true Ran Out of Food in the Last Year: Sometimes true Transportation Needs: Patient Declined (12/06/2024) PRAPARE - Transportation Lack of Transportation (Medical): Patient declined Lack of Transportation (Non-Medical): Patient declined Physical Activity: Patient Declined (12/06/2024) Exercise Vital Sign Days of Exercise per Week: Patient declined Minutes of Exercise per Session: Patient declined Stress: Patient Declined (12/06/2024) Stateless [place] [employer] - Occupational Stress Questionnaire Feeling of Stress : Patient declined Social Connections: Patient Declined (12/06/2024) Social Connection and Isolation Panel [NHANES] Frequency of Communication with Friends and Family: Patient declined Frequency of Social Gatherings with Friends and Family: Patient declined Attends Quaker Services: Patient declined Active Member of Clubs or Organizations: Patient declined Attends Club or Organization Meetings: Patient declined Marital Status: Patient declined Intimate Partner Violence: Patient Declined (12/06/2024) Humiliation, Afraid, Rape, and Kick questionnaire Fear of Current or Ex-Partner: Patient declined Emotionally Abused: Patient declined Physically Abused: Patient declined Sexually Abused: Patient declined Housing Stability: Patient Declined (12/06/2024) Housing Stability Vital Sign Unable to Pay for Housing in the Last Year: Patient declined Homeless in the Last Year: Patient declined SCREENINGS PHYSICAL EXAM ED Triage Vitals [03/21/25 1747] Temp Heart Rate Resp BP 36.1 ?C (96.9 ?F) (!) 42 18 (!) 138/95 SpO2 Temp Source Heart Rate Source Patient Position 98 % Temporal Monitor -- BP Location FiO2 (%) -- -- Physical Exam Vitals and nursing note reviewed. Constitutional: General: She is not in acute distress. Appearance: She is well-developed. HENT: Head: Normocephalic and atraumatic. Eyes: Conjunctiva/sclera: Conjunctivae normal. Cardiovascular: Rate and Rhythm: Normal rate and regular rhythm. Heart sounds: No murmur heard. Pulmonary: Effort: Pulmonary effort is normal. No respiratory distress. Breath sounds: Normal breath sounds. Abdominal: Palpations: Abdomen is soft. Tenderness: There is no abdominal tenderness. Musculoskeletal: Cervical back: Neck supple. Comments: Tenderness palpation over the midfoot, extending to the lateral malleolus, and up into the lower portion of the whitaker. No gross bony deformity. Full range of motion with flexion, distention, lateral rotation of the ankle. PT DP pulses easily palpable and symmetric bilaterally. Sensation intact. Negative squeeze test. No patellar instability. No anterior posterior drawer laxity. Calf soft and nontender. Negative Homans. Compartments soft. Skin warm well-perfused. Skin: General: Skin is warm and dry. Capillary Refill: Capillary refill takes less than 2 seconds. Neurological: Mental Status: She is alert. Psychiatric: Mood and Affect: Mood normal. DIAGNOSTIC RESULTS RADIOLOGY (Per Emergency Physician): Interpretation per the Radiologist below, if available at the time of this note: XR tibia fibula 2 views left Final Result No acute osseous abnormality. EXAMINATION: Left ankle three views INDICATION: rolled ankle, ttp over dorsum of foot into lateral ankle and up into mid whitaker FINDINGS: No acute fracture or dislocation is demonstrated. The joint spaces are grossly maintained. Soft tissue swelling of the medial and lateral malleolus. IMPRESSION: No acute osseous abnormality. Soft tissue swelling. EXAMINATION: Left tibias/fibula two views INDICATION: rolled ankle, ttp over dorsum of foot into lateral ankle and up into mid whitaker FINDINGS: There is no acute fracture. The proximal and distal articulations appear intact. Soft tissue swelling is present. IMPRESSION: No acute osseous abnormality.. Soft tissue swelling. Report Dictated on Electronically Signed By: Caron Reece MD Electronically Signed Date/Time: 03/21/2025 6:38 PM EDT XR ankle 3+ views left Final Result No acute osseous abnormality. EXAMINATION: Left ankle three views INDICATION: rolled ankle, ttp over dorsum of foot into lateral ankle and up into mid whitaker FINDINGS: No acute fracture or dislocation is demonstrated. The joint spaces are grossly maintained. Soft tissue swelling of the medial and lateral malleolus. IMPRESSION: No acute osseous abnormality. Soft tissue swelling. EXAMINATION: Left tibias/fibula two views INDICATION: rolled ankle, ttp over dorsum of foot into lateral ankle and up into mid whitaker FINDINGS: There is no acute fracture. The proximal and distal articulations appear intact. Soft tissue swelling is present. IMPRESSION: No acute osseous abnormality.. Soft tissue swelling. Report Dictated on Electronically Signed By: Caron Reece MD Electronically Signed Date/Time: 03/21/2025 6:38 PM EDT XR foot 3+ views left Final Result No acute osseous abnormality. EXAMINATION: Left ankle three views INDICATION: rolled ankle, ttp over dorsum of foot into lateral ankle and up into mid whitaker FINDINGS: No acute fracture or dislocation is demonstrated. The joint spaces are grossly maintained. Soft tissue swelling of the medial and lateral malleolus. IMPRESSION: No acute osseous abnormality. Soft tissue swelling. EXAMINATION: Left tibias/fibula two views INDICATION: rolled ankle, ttp over dorsum of foot into lateral ankle and up into mid whitaker FINDINGS: There is no acute fracture. The proximal and distal articulations appear intact. Soft tissue swelling is present. IMPRESSION: No acute osseous abnormality.. Soft tissue swelling. Report Dictated on Electronically Signed By: Caron Reece MD Electronically Signed Date/Time: 03/21/2025 6:38 PM EDT LABS: Labs Reviewed - No data to display All other labs were within normal range or not returned as of this dictation. EMERGENCY DEPARTMENT COURSE and DIFFERENTIAL DIAGNOSIS/MDM: Vitals: Vitals: 03/21/25 1708 03/21/25 1747 03/21/25 1949 BP: (!) 138/95 (!) 152/94 Pulse: (!) 42 86 Resp: 18 Temp: 36.1 ?C (96.9 ?F) TempSrc: Temporal SpO2: 98% 99% Weight: 123 kg (272 lb) Height: 1.626 m (5' 4) Medications acetaminophen (Tylenol) tablet 1,000 mg (1,000 mg Oral Given 03/21/251814) I independently evaluated the patient with supervising attending physician available as needed for collaboration. Nursing notes and medical records reviewed. Differential considerations included fracture, dislocation, versus soft tissue injury Initial medical management includes Tylenol Initial workup includes x-ray left tib-fib, x-ray left ankle, x-ray left foot Upon reassessment patient remains nontoxic and in no acute distress. Repeat heart rate 86. Given initial bradycardia likely entered in error. Ambulatory around ER without difficulty. Imaging results per radiology: XR: IMPRESSION: No acute osseous abnormality. Soft tissue swelling. I estimate there is LOW risk for COMPARTMENT SYNDROME, DEEP VENOUS THROMBOSIS, SEPTIC ARTHRITIS, TENDON OR NEUROVASCULAR INJURY, thus I consider the discharge disposition reasonable. X-ray at this time does not show any acute traumatic osseous injury. She is neurovascularly intact with full range of motion. Ambulatory around the ED without difficulty or deficit. Believe she likely sprained her ankle. Placed into a walking boot for comfort. Will plan to have her follow-up with her primary care provider, did federico referral to orthopedic sports medicine for further evaluation and management as an outpatient. Strict ER return precautions were discussed, patient was comfortable and agreeable withplans for discharge. Discharged in stable condition with stable vital signs. Work note provided. FINAL IMPRESSION 1. Moderate left ankle sprain, initial encounter DISPOSITION Discharge 03/21/2025 08:17:58 PM Shared decision making preformed. PATIENT REFERRED TO: MERGED WITH [facility] EMERGENCY DEPT [address] [facility] [id number] As needed, If symptoms worsen [facility] [address] [id number] DISCHARGE MEDICATIONS: New Prescriptions ACETAMINOPHEN (TYLENOL EXTRA STRENGTH) 500 MG TABLET Take 1 tablet (500 mg) by mouth every 6 hours as needed for mild pain (1-3) for up to 10 days. IBUPROFEN 600 MG TABLET Take 1 tablet (600 mg) by mouth every 6 hours as needed for mild pain (1-3) for up to 7 days. (Comment: Please note this report has been produced using speech recognition software and may contain errors related to that system including errors in grammar, punctuation, and spelling, as well as words and phrases that may be inappropriate. If there are any questions or concerns please feel free to contact the dictating provider for clarification.) Lois Winter PA-C (electronically signed) Emergency Medicine Provider Lois Winter PA-C 03/21/252038 ECG 12-LEAD Observed: 12/06/2024 6:54 PM Status: F Source: [email or web address] [facility] IMPRESSION: Sinus arrhythmia Low voltage, precordial leads Electronically Signed On 12-06-2024 18:53:59 EST by aLw Camilo NURSING NOTE Observed: 12/06/2024 4:20 PM Status: COMPLETED Source: [email or web address] [facility] Denies SI/HI. Signed AVSJoao Galvan questions, out in public areas. Guided to ride pickup from home, for discharge. NURSING NOTE Observed: 12/06/2024 3:26 PM Status: COMPLETED Source: [email or web address] [facility] Calm and cooperative. Denies SI/HI. Denies voices or hallucinations. Denies pain, no distress. Denies needs. Anticipating a future discharge. Called [facility] [address] [facility] [address], meds verified. Out in public areas. Full med compliance. 30 Observed: 12/06/2024 2:43 PM Status: COMPLETED Source: [facility] Problem: Sensory Perceptual Alteration as Evidenced by Goal: Cooperates with admission process 12/06/2024 1443 by Naldo Beck RN Outcome: Adequate for Discharge12/06/2024 1443 by Naldo Beck RN Outcome: Adequate for DischargeGoal: Patient/Family participate in treatment and discharge plans 12/06/2024 1443 by Naldo Beck RN Outcome: Adequate for Discharge12/06/2024 1443 by Naldo Beck RN Outcome: Adequate for DischargeGoal: Patient/Family verbalizes awareness of resources 12/06/2024 1443 by Naldo Beck RN Outcome: Adequate for Discharge12/06/2024 1443 by Naldo Beck RN Outcome: Adequate for DischargeGoal: Participates in unit activities 12/06/2024 1443 by Naldo Beck RN Outcome: Adequate for Discharge12/06/2024 1443 by Naldo Beck RN Outcome: Adequate for DischargeGoal: Discusses signs/symptoms of illness/treatment options 12/06/2024 1443 by Naldo Beck RN Outcome: Adequate for Discharge12/06/2024 1443 by Naldo Beck RN Outcome: Adequate for DischargeGoal: Initiates reality-based interactions 12/06/2024 1443 by Naldo Beck RN Outcome: Adequate for Discharge12/06/2024 1443 by Naldo Beck RN Outcome: Adequate for DischargeGoal: Able to discuss content of hallucinations/delusions 12/06/2024 1443 by Naldo Beck RN Outcome: Adequate for Discharge12/06/2024 1443 by Naldo Beck RN Outcome: Adequate for DischargeGoal: Notifies staff when experiencing hallucinations/delusions 12/06/2024 1443 by Naldo Beck RN Outcome: Adequate for Discharge12/06/2024 1443 by Naldo Beck RN Outcome: Adequate for DischargeGoal: Verbalizes reduction in hallucinations/delusions 12/06/2024 1443 by Naldo Beck RN Outcome: Adequate for Discharge12/06/2024 1443 by Naldo Beck RN Outcome: Adequate for DischargeGoal: Will not act on psychotic perception 12/06/2024 144 by Naldo Beck RN Outcome: Adequate for Discharge12/06/2024 144 by Naldo Beck RN Outcome: Adequate for DischargeGoal: Understands least restrictive measures 12/06/2024 144 by Naldo Beck RN Outcome: Adequate for Discharge12/06/2024 144 by Naldo Beck RN Outcome: Adequate for DischargeGoal: Free from restraint events 12/06/2024 144 by Naldo Beck RN Outcome: Adequate for Discharge12/06/2024 144 by Naldo Beck RN Outcome: Adequate for Discharge DISCHARGE SUMMARY Observed: 12/06/2024 10:45 AM Status: COMPLETED Source: [facility] Discharge Summary Taz Christine : 1990 ADMIT DATE: 12/05/2024 DISCHARGE DATE: 12/06/2024 PRIMARY CARE PHYSICIAN: No primary care provider on file. VISIT STATUS: Admission CODE STATUS: Full Code DISCHARGE DIAGNOSES: 1.) Schizophrenia 2.) Cannabis use disorder 3.) PTSD HOSPITAL COURSE: Taz was admitted to [facility] for psychiatric stabilization of chronic schizophrenia with delusional thoughts. She presented to the emergency department believing that she was and in labor. She was evaluated by ED staff, had no signs of labor and her hCG was negative. She was admitted to [facility] for psychiatric assessment. On initial assessment, she accepted that she was not . I went over lab results with her. I do believe that she probably is chronically delusional. She did not appear to be a danger to herself or others and most likely is at her baseline mental state. She will follow-up with [facility] health. She denied suicidal or homicidalideation, no intent or plan. She was overall calm and cooperative without any behavioral outbursts or agitation. I did recommend that she remain abstinent from marijuana as this could worsen psychosis. SIGNIFICANT DIAGNOSTIC STUDIES: none CONSULTANTS: none RECOMMENDED NEXT STEPS: Follow up as scheduled Attempt made to contact significant other to review discharge plan at time of discharge. We were unable to contact significant other identified. Patient was provided opportunity to designate another possible contact and declined. DISCHARGE MEDICATIONS: Medication List CONTINUE taking these medications amantadine 100 MG capsule Commonly known as: Symmetrel ASK your doctor about these medications albuterol 108 (90 Base) MCG/ACT inhaler Inhale 2 puffs every 4 hours as needed for wheezing or shortness of breath. busPIRone 30 MG tablet Commonly known as: Buspar divalproex 250 MG EC tablet Commonly known as: Depakote EPINEPHrine 0.3 MG/0.3ML injection syringe Commonly known as: Epipen Inject 0.3 mL (0.3 mg) as directed Once as needed for anaphylaxis for up to 1 dose. Inject into upper leg. Call 911 after use. famotidine 20 MG tablet Commonly known as: Pepcid FLUoxetine 40 MG capsule Commonly known as: PROzac Invega Sustenna 234 MG/1.5ML suspension prefilled syringe Generic drug: paliperidone palmitate ER lamoTRIgine 25 MG tablet Commonly known as: LaMICtal lidocaine 5 % patch Commonly known as: Lidoderm Apply 1 patch topically daily. Remove & discard patch within 12 hours or as directed by MD. paliperidone 6 MG 24 hr tablet Commonly known as: Invega traZODone 50 MG tablet Commonly known as: Desyrel DISCHARGE PHYSICAL EXAM: BP 154/92 Pulse 67 Temp 36.8 ?C (98.2 ?F) (Temporal) Resp 16 Ht 1.626 m (5' 4) Wt 125 kg (275 lb) SpO2 99% BMI 47.20 kg/m? DIET: Adult diet Regular ACTIVITY: No restriction. COMPLEXITY OF FOLLOW UP: [x] Moderate Complexity: follow up within 7-14 calendar days (91834) [] Severe Complexity: follow up within 7 calendar days (14175) FOLLOW UP TESTING, PENDING RESULTS OR REFERRALS AT TRANSITIONAL CARE VISIT: [x] Yes [] No PENDING STUDIES: none DISPOSITION: Home Follow up with [facility] [address] [phone] Go to Walk in hours-Mon 8am to 2pm, Tue/Thurs 8am to 3pm, and Fri 8am to 12pm. Please bring photo ID and insurance information. DISCHARGE TIME: > 30 minutes SIGNED: Lex Devine MD 12/06/2024, 10:45 AM [id number] Observed: 12/06/2024 10:42 AM Status: COMPLETED Source: [facility] Patient is discharging prior to psychosocial assessment being completed by social work. Patient is discharging from the hospital today. She denies any thoughts to harm herself or others. She denies concerns with discharge states she is feeling much better overnight. She will continue with her outpatient providers at [facility]. Her cousin will pick her up at discharge. ORY AND PHYSICAL NOTE Observed: 11/27 10:35 AM Status: COMPLETED Source: [facility] Department of Psychiatry History and Physical - Adult CHIEF COMPLAINT: better, ready to go home History obtained from: chart review and patient reports Patient was seen after discussion with staff and reviewing the chart HISTORY OF PRESENT ILLNESS: The patient is a 34 y.o. female who presents with delusions. Patient initially presented to the emergency department with chief complaint of believing she was . She stated to staff that she thought she was in labor. There is no clear signs of expectant labor. hCG in the emergency department was negative. There is concern for her underlying schizophrenia and she was therefore admitted to [facility]. On exam, she is fairly cooperative at times slightly irritable but not angry. Reports that she is feeling better. Reports that she thought she was , reportedly she was told by 3 hospitals and had an ultrasound but they never told me the results. She is a fairly unreliable historian. Per her account she has not had a period in 9 months. She apparently has delivered 3 times previously but her children are . Reports she follows up with [facility] and has a history of schizophrenia, PTSD and anxiety, also allegedly has Parkinson's and dementia even though she is 34 years old. She also alludes to multiple personalities reaching as high as 14 and number. Overall she reports feeling happy. She denies suicidal or homicidal ideation. Currently denies auditory or visual hallucinations. After discussion of her evaluation in the emergency department and negative hCG she seems accepting of the fact that she is not and reports wanting to go home. Medications Prior to Admission: amantadine, 100 mg, Oral, Daily PRN medications: benztropine, diphenhydrAMINE AND haloperidol AND LORazepam, diphenhydrAMINE AND haloperidol lactate AND LORazepam, hydrOXYzine pamoate, traZODone Compliance:yes Psychiatric Review of Systems (Negative if unchecked) [] Change in appetite/weight [] Change in sleep MOOD: [] Anhedonia [] Decreased/low mood []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 Relative 26.6 Monocytes Relative 8.7 Eosinophils Relative 2.7 Basophils Relative 0.6 Immature Grans % 0.3 Neutrophils Absolute 4.1 Lymphocytes Absolute 1.8 Monocytes Absolute 0.6 Eosinophils Absolute 0.2 Basophils Absolute 0.0 Immature Grans Absolute 0.0 IPF 8 COMPREHENSIVE METABOLIC PANEL - Abnormal SODIUM 136 POTASSIUM 3.7 CHLORIDE 106 CARBON DIOXIDE 21 (*) ANION GAP 9 UREA NITROGEN 10 CREATININE 1.26 (*) GLUCOSE 91 CALCIUM 8.6 AST (SGOT) 19 ALT 13 ALKALINE PHOSPHATASE 90 ALBUMIN 3.9 BILIRUBIN, TOTAL 0.4 TOTAL PROTEIN 7.0 eGFR 56.9 (*) LIPID PANEL - Abnormal TRIGLYCERIDE 101 CHOLESTEROL 130 HDL CHOLESTEROL 41 (*) CHOL/HDL 3 VERY LOW DENSITY LIPOPROTEIN, CALCULATED 20 NON-HDL CHOLESTEROL, CALCULATED 89 LOW DENSITY LIPOPROTEIN 69 SARS-COV-2 ANTIGEN - Normal SARS-CoV-2 Antigen Negative ETHANOL - Normal ETHANOL IN SER/PLAS <10 Narrative: ACCESS DIRECTOR depression is seen >100 mg/dL. NOTE: This result is for medical treatment only. Analysis performed using non-forensic procedures. DRUGS OF ABUSE AMPHETAMINE SCREEN Negative BARBITURATES SCREEN Negative BENZODIAZEPINE SCREEN Negative COCAINE METAB. SCREEN Negative METHADONE SCREEN Negative OPIATES SCREEN Negative OXYCODONE SCREEN Negative PHENCYCLIDINE SCREEN Negative FENTANYL SCREEN, UR QUAL Positive Narrative: The expected value for all of the drugs listed above is Negative. The following drugs or drug groups have been screened for by Immunoassay at the following thresholds: Amphetamine class (1000 ng/mL) Barbiturates (200 ng/mL) Benzodiazepines (200 ng/mL) Cocaine (300 ng/mL) Methadone (300 ng/mL) Opiates (300 ng/mL) Oxycodone (100 ng/mL) PCP (25 ng/mL) Fentanyl (1.0 ng/ml) NOTE: These results are for medical treatment only. Analysis performed using non-forensic procedures. POSITIVE results are NOT confirmed by a more specific alternative method unless requested. If confirmation is needed, request confirmation under separate order. HCG QUALITATIVE URINE HCG,URINE QUAL Negative Narrative: is the most common reason for HCG in urine, although choriocarcinoma, hydatidiform mole, and certain nontrophoblastic malignancies also result in detectable urinary HCG levels. Sensitivity = 20mIU/mL. HEMOGLOBIN A1C All other labs were within normal range or not returned as of this dictation. EMERGENCY DEPARTMENT COURSE and DIFFERENTIAL DIAGNOSIS/MDM: Vitals: Vitals: 12/05/24 1855 12/05/24 2209 12/06/24 0419 12/06/24 0517 BP: 121/67 118/70 BP Location: Right arm Patient Position: Sitting Pulse: 62 57 Resp: 16 16 Temp: 36.4 ?C (97.5 ?F) 36.2 ?C (97.2 ?F) TempSrc: Temporal Temporal SpO2: 97% 95% 98% Weight: 125 kg (275 lb) Height: 1.626 m (5' 4) Medications hydrOXYzine pamoate (Vistaril) capsule 50 mg (has no administration in time range) diphenhydrAMINE (BENADryl) capsule 50 mg (has no administration in time range) And haloperidol (Haldol) tablet 5 mg (has no administration in time range) And LORazepam (Ativan) tablet 2 mg (has no administration in time range) diphenhydrAMINE (BENADryl) injection 50 mg (has no administration in time range) And haloperidol lactate (Haldol) injection 5 mg (has no administration in time range) And LORazepam (Ativan) injection 2 mg (has no administration in time range) benztropine (Cogentin) injection 2 mg (has no administration in time range) traZODone (Desyrel) tablet 50 mg (has no administration in time range) Due to the bizarre behavior she exhibited upon arrival to ED and her history of psychiatric illness and overall clinical concern the patient was not functional enough to be allowed to elope, I did pink slip the patient and she was escorted to the psychiatric area. She is overall very tearful, anxious, and has a labile affect. Has delusions of being currently. was ruled out with a urine hCG testing. With her prior psychiatric history and also ongoing delusions, I do believe patient warrants further inpatient psychiatric care. Discussed this with psychiatry on-call Dr. Myles who agreed. FINAL IMPRESSION 1. Acute psychosis (HCC) DISPOSITION Admit To Behavioral Health 12/06/2024 12:08:01 AM PATIENT REFERRED TO: No follow-up provider specified. DISCHARGE MEDICATIONS: Current Discharge Medication List (Comment: Please note this report has been produced using speech recognition software and may contain errors related to that system including errors in grammar, punctuation, and spelling, as well as words and phrases that may be inappropriate. If there are any questions or concerns please feel free to contact the dictating provider for clarification.) Aleksandar Lazo DO (electronically signed) Emergency Medicine Provider Aleksandar Lazo DO 12/06/24 0622 ED NURSING NOTE Observed: 12/05/2024 6:22 PM Status: COMPLETED Source: [facility] Pt states she smoked somethi ng today for the first time and does not know what it was. ED NURSING NOTE Observed: 10/04/2024 3:19 PM Status: COMPLETED Source: [email or web address] Pt was taken to room 46 and ready to be discharged ED NURSING NOTE Observed: 10/04/2024 2:52 PM Status: COMPLETED Source: [facility] Pt was given the phone. ED NURSING NOTE Observed: 10/04/2024 2:36 PM Status: COMPLETED Source: [facility] Pt up to the restroom. ED NURSING NOTE Observed: 10/04/2024 2:33 PM Status: COMPLETED Source: [email or web address] Psych at bedside. ED NURSING NOTE Observed: 10/04/2024 1:55 PM Status: COMPLETED Source: [facility] Pt up to the restroom. ED NURSING NOTE Observed: 10/04/2024 12:46 PM Status: COMPLETED Source: [facility] Pt walked to restroom with n o issues ED NURSING NOTE Observed: 10/04/2024 12:00 PM Status: COMPLETED Source: [facility] PT. WAS CHANGED INTO HOSPITA L GOWN,SKIN ASSESSMENT COMPLETED BY NURSING. PT WANDED AND ALL BELONGINGS INVENTORIED AND LOCKED IN CABINET BY PROTECTIVE SERVICE. Pt has 1 bag. SARS-COV-2 ANTIGEN Observed: 10/04/2024 11:33 AM Status: F Source: [facility] SARS-COV-2 ANTIGEN -BINAX Re ference Negative Negative A negative result does not rule out the possibility of SARS-CoV-2 infection. NAAT-based methods should be considered for symptomatic patients presenting greater than seven days after onset of symptoms. Method: Lateral flow immunoassay. Fact sheets for healthcare providers and patients can be found at the following sites: https://www.fda.gov/media/604821/download https://www.fda.gov/media/687334/download Performed By: #### [id number] #### Merchandising Lead: SADIE YANG ([id number]) [address] DRUGS OF ABUSE Collected: 10/04/2024 11:33 AM Status : F Source: [facility] TYPE CODE TESTS RESULT OUT OF RANGE REFERENCE UNITS LAB 1391873 AMPHETAMINE SCREEN Negative LAB 1693316 BARBITURATES SCREEN Negative LAB 1433099 BENZODIAZEPINE SCREEN Negative LAB 4681535 COCAINE METAB. SCREEN Negative LAB 3956670 METHADONE SCREEN Negative LAB 3675775 OPIATES SCREEN Negative LAB 6817759 OXYCODONE SCREEN Negative LAB [id number] PHENCYCLIDINE SCREEN Negative Result Comment: ORDER COMMEN TS: The expected value for all of the drugs listed above is Negative. The following drugs or drug groups have been screened for by Immunoassay at the following thresholds: Amphetamine class (1000 ng/mL) Barbiturates (200 ng/mL) Benzodiazepines (200 ng/mL) Cocaine (300 ng/mL) Methadone (300 ng/mL) Opiates (300 ng/mL) Oxycodone (100 ng/mL) PCP (25 ng/mL) NOTE: These results are for medical treatment only. Analysis performed using non-forensic procedures. POSITIVE results are NOT confirmed by a more specific alternative method unless requested. If confirmation is needed, request confirmation under separate order. Performed By: #### [id number] #### Merchandising Lead: SADIE YANG ([id number]) [facility]) [address] [place] [address] CBC WITH AUTO DIFFERENTIAL Collected: 1 12/04/2023 11:32 AM Status: F Source: [facility] TYPE CODE TESTS RESULT OUT OF RANGE REFERENCE UNITS LAB 7283222 WBC 6.1 3.6-10.7 10*3/uL LAB 1255895 RBC 5.18 3.80-5.20 10*6/uL LAB 7967784 HEMOGLOBIN 15.5 11.7-16.0 g/dL LAB 4821125 HEMATOCRIT 45.7 35.0-47.0 % LAB 0479344 MCV 88.2 77.0-99.0 fL LAB 4375103 MCH 29.9 26.0-34.0 pg LAB 6809799 MCHC 33.9 30.5-36.0 % LAB 9467233 RDW 12.1 11.5-15.0 % LAB 9530691 PLATELET COUNT 111 Low 140-440 10*3/uL LAB 9001814 MPV 11.9 9.0-12.7 fL LAB 254 NRBC 0.0 0.0-2.0 /100 WBCs LAB 5178275 NEUTROPHILS RELATIVE 61.8 38.0-82.0 % LAB 8714634 LYMPHOCYTES RELATIVE 25.5 15.0-45.0 % LAB 5380438 MONOCYTES RELATIVE 10.0 5.0-13.0 % LAB 2148441 EOSINOPHILS RELATIVE 2.0 0.0-6.0 % LAB 7810620 BASOPHILS RELATIVE 0.5 0.0-2.0 % LAB 7041718 IMMATURE GRANS % 0.2 0.0-2.0 % LAB 5091589 NEUTROPHILS ABSOLUTE 3.8 1.8-7.5 10*3/uL LAB 2818715 LYMPHOCYTES ABSOLUTE 1.6 1.0-4.3 10*3/uL LAB 0866879 MONOCYTES ABSOLUTE 0.6 0.0-0.9 10*3/uL LAB 5263712 EOSINOPHILS ABSOLUTE 0.1 0.0-0.5 10*3/uL LAB 9134981 BASOPHILS ABSOLUTE 0.0 0.0-0.2 10*3/uL LAB 798256 IMMATURE GRANS ABSOLUTE 0.0 <0.1 10*3/uL LAB 5187218 IPF 8 Performed By: #### [id number] ### Merchandising Lead: SADIE YANG ([id number]) [facility]) [address] [place] [address] COMPREHENSIVE METABOLIC PANEL Collected : 10/04/2024 11:32 AM Status: F Source: [facility] TYPE CODE TESTS RESULT OUT OF RANGE REFERENCE UNITS LAB 1060104 SODIUM 136 135-145 mmol/L LAB 6772314 POTASSIUM 4.2 3.5-5.1 mmol/L LAB 8953592 CHLORIDE 108 High 98-107 mmol/L LAB 8484685 CARBON DIOXIDE 19 Low 22-30 mmol/L LAB 4876677 ANION GAP 9 3-13 mmol/L LAB 4094408 UREA NITROGEN 14 7-17 mg/dL LAB 1310107 CREATININE 1.09 High 0.52-1.04 mg/dL LAB 4154399 GLUCOSE 101 High 70-100 mg/dL LAB 2718897 CALCIUM 9.3 8.4-10.4 mg/dL LAB 5080191 AST (SGOT) 17 15-46 U/L LAB 4619161 ALT 14 0-34 U/L LAB 9327112 ALKALINE PHOSPHATASE 85 38-126 U/L LAB 8702128 ALBUMIN 4.4 3.5-5.0 g/dL LAB 0165154 BILIRUBIN, TOTAL 0.7 0.2-1.3 mg/dL LAB 9951230 TOTAL PROTEIN 7.5 6.3-8.2 g/dL LAB 0000920 GLOMERULAR FILTRATION RATE ML/MIN/1.73 SQ M.PREDICTED 67.7 >60.0 mL/min/1. 73m*2 Result Comment: Calculation based on the Chronic Kidney Disease Epidemiology Collaboration (CKD-EPI) equation refit without adjustment for race Performed By: #### CAMILO MANNING #### Merchandising Lead: SADIE YANG ([id number]) [address] ETHANOL Collected: 4 11:32 AM Status: F Source: [facility] TYPE CODE TESTS RESULT OUT OF RANGE REFERENCE UNITS LAB 5096162 ETHANOL IN SER/PLAS <0.010 0.000-0.010 g/dL Result Comment: ORDER COMMEN TS: NOTE: This result is for medical treatment only. Analysis performed using non-forensic procedures. Performed By: #### CAMILO MANNING #### Merchandising Lead: SADIE YANG ([id number]) [address] HCG, RAPID SERUM Collected: 4 11:32 AM Status: F Source: [facility] TYPE CODE TESTS RESULT OUT OF RANGE REFERENCE UNITS LAB 8593472 HCG, RAPID SCREEN None Detected None Detected Performed By: #### [id number] #### Merchandising Lead: SADIE YANG ([id number]) [facility] ([facility]) [address] [place] [address] ED PROVIDER NOTE Observed: 10/04/2024 10:46 AM Status: COMPLETED Source: [facility] Emergency Department [place] [facility] EMERGENCY DEPT Patient: Taz Christine : 1990 Date of Evaluation: 10/04/2024 ED Provider: Walt Mckenna MD TRIAGE NOTE I independently examined and evaluated Taz Christine. I personally saw & evaluated the patient as the Clinician in Triage and performed a brief history and physical exam, established acuity, and ordered appropriate tests to develop basic plan of care. Patient will be seen by an [facility], resident and/or my physician partner who will independently evaluate the patient. Please see subsequent provider notes for further details and disposition Brief HPI: In brief, Taz Christine is a 34 y.o. female that presents for psychiatric evaluation. The patient suffers with bipolar disease schizophrenia PTSD and depression, she apparently had a telephone conversation with her therapist that concern to therapist that the patient might be suicidal and recommended she come to the ER for evaluation. The patient states that she is been more paranoid somewhat delusional from that perspective and feeling like she cannot make people happy and people are out to get her. She denies an active suicide plan or being homicidal.. Focused Physical exam: Psych: Awake alert oriented answering questions, patient states that she has multiple personalities has been having some paranoid delusions she feels like she is losing things, she is hearing voices and having auditory hallucinations and that Caesar has been speaking to her. No obvious thought insertion. She denies a suicidal plan and is not homicidal. Plan/MDM: Mental health labs will be ordered and mental health evaluation initiated. Please see subsequent provider note for further details and disposition Comment: Please note this report has been produced using speech recognition software and may contain errors related to that system including errors in grammar, punctuation, and spelling as well as words and phrases that may be inappropriate. If there are any questions or concerns please feel free to contact the dictating provider for clarification Walt Mckenna MD [employer] Walt Mckenna MD 10/04/24 1119 ED PROVIDER NOTE Observed: 10/04/2024 10:46 AM Status: COMPLETED Source: [facility] EMERGENCY DEPARTMENT [facility] Pt Name: Taz Christine Birthdate 1990 Date of evaluation: 10/04/2024 ED Provider: Jeffrey Evans MD CHIEF COMPLAINT Chief Complaint Patient presents with Psychiatric Evaluation Pt sent by therapist for crisis evaluation. Pt she she does not want to but is unable to make people around her satisfied. Pt states she has multiple personalities. I am everywhere but nowhere I feel like I'm always losing denies HI. Pt admits to new voice in her head names caesar HISTORY OF PRESENT ILLNESS (Location/Symptom, Timing/Onset, Context/Setting, Quality, Duration, Modifying Factors, Severity) Note limiting factors. I wore appropriate PPE for the entirety of this encounter. HPI Taz Christine is a 34 y.o. with past medical history of multiple personality disorder who presents to the emergency department for evaluation of psychiatric crisis from crisis center. Patient states that she cannot tolerate this morning medicines and not working. Endorses hearing voices which is not necessarily new. Believes she is . Denies any vaginal bleeding abdominal pain nausea vomiting or syncope. States she has been taking her medications as prescribed denies SI and HI Nursing Notes were reviewed. Limitations to history: Outside historians: REVIEW OF SYSTEMS Review of Systems All other systems reviewed and are negative. Pertinent positives and negatives as per HPI. PAST MEDICAL HISTORY History reviewed. No pertinent past medical history. SURGICAL HISTORY History reviewed. No pertinent surgical history. CURRENT MEDICATIONS Discharge Medication List as of 10/04/2024 3:07 PM CONTINUE these medications which have NOT CHANGED Details albuterol 108 (90 Base) MCG/ACT inhaler Inhale 2 puffs every 4 hours as needed for wheezing or shortness of breath., Starting Mon08/13/2024, Until Mon08/13/2025 at 2359, Normal amantadine (Symmetrel) 100 MG capsule Historical Med busPIRone (Buspar) 30 MG tablet Historical Med divalproex (Depakote) 250 MG EC tablet Historical Med EPINEPHrine (Epipen) 0.3 MG/0.3ML injection syringe Inject 0.3 mL (0.3 mg) as directed Once as needed for anaphylaxis for up to 1 dose. Inject into upper leg. Call 911 after use., Starting Mon08/13/2024, Normal famotidine (Pepcid) 20 MG tablet Take 1 tablet by mouth in the morning and 1 tablet in the evening., Historical Med FLUoxetine (PROzac) 40 MG capsule Historical Med Invega Sustenna 234 MG/1.5ML suspension prefilled syringe Historical Med lamoTRIgine (LaMICtal) 25 MG tablet Historical Med lidocaine (Lidoderm) 5 % patch Apply 1 patch topically daily. Remove & discard patch within 12 hours or as directed by MD., Starting Mon02/21/2023, Print paliperidone (Invega) 6 MG 24 hr tablet Historical Med traZODone (Desyrel) 50 MG tablet Take 1 tablet by mouth daily at bedtime., Historical Med ALLERGIES Latex, Pcn [penicillins], and Amoxicillin FAMILY HISTORY No family history on file. 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 Constitutional: General: She is not in acute distress. Appearance: She is well-developed. She is obese. HENT: Head: Normocephalic and atraumatic. Nose: Nose normal. Mouth/Throat: Mouth: Mucous membranes are moist. Eyes: Extraocular Movements: Extraocular movements intact. Conjunctiva/sclera: Conjunctivae normal. Pupils: Pupils are equal, round, and reactive to light. Cardiovascular: Rate and Rhythm: Normal rate and regular rhythm. Pulses: Normal pulses. Heart sounds: Normal heart sounds. No murmur heard. Pulmonary: Effort: Pulmonary effort is normal. No respiratory distress. Breath sounds: Normal breath sounds. Abdominal: Palpations: Abdomen is soft. Tenderness: There is no abdominal tenderness. Musculoskeletal: General: No swelling or tenderness. Cervical back: Neck supple. Skin: General: Skin is warm and dry. Capillary Refill: Capillary refill takes less than 2 seconds. Coloration: Skin is not jaundiced. Neurological: General: No focal deficit present. Mental Status: She is alert and oriented to person, place, and time. Mental status is at baseline. Cranial Nerves: No cranial nerve deficit. Sensory: No sensory deficit. Psychiatric: Attention and Perception: Attention normal. Mood and Affect: Mood normal. Speech: Speech normal. Behavior: Behavior is cooperative. Thought Content: Thought content is delusional. DIAGNOSTIC RESULTS RADIOLOGY (Per Emergency Physician): Interpretation per the Radiologist below, if available at the time of this note: No orders to display LABS: Labs Reviewed CBC WITH AUTO DIFFERENTIAL - Abnormal Result Value Auto WBC 6.1 RBC 5.18 Hemoglobin 15.5 Hematocrit 45.7 MCV 88.2 MCH 29.9 MCHC 33.9 RDW 12.1 Platelets 111 (*) MPV 11.9 nRBC 0.0 Neutrophils Relative 61.8 Lymphocytes Relative 25.5 Monocytes Relative 10.0 Eosinophils Relative 2.0 Basophils Relative 0.5 Immature Grans % 0.2 Neutrophils Absolute 3.8 Lymphocytes Absolute 1.6 Monocytes Absolute 0.6 Eosinophils Absolute 0.1 Basophils Absolute 0.0 Immature Grans Absolute 0.0 IPF 8 COMPREHENSIVE METABOLIC PANEL - Abnormal SODIUM 136 POTASSIUM 4.2 CHLORIDE 108 (*) CARBON DIOXIDE 19 (*) ANION GAP 9 UREA NITROGEN 14 CREATININE 1.09 (*) GLUCOSE 101 (*) CALCIUM 9.3 AST (SGOT) 17 ALT 14 ALKALINE PHOSPHATASE 85 ALBUMIN 4.4 BILIRUBIN, TOTAL 0.7 TOTAL PROTEIN 7.5 eGFR 67.7 SARS-COV-2 ANTIGEN - Normal SARS-CoV-2 Antigen Negative ETHANOL - Normal ETHANOL IN SER/PLAS <0.010 Narrative: NOTE: This result is for medical treatment only. Analysis performed using non-forensic procedures. DRUGS OF ABUSE AMPHETAMINE SCREEN Negative BARBITURATES SCREEN Negative BENZODIAZEPINE SCREEN Negative COCAINE METAB. SCREEN Negative METHADONE SCREEN Negative OPIATES SCREEN Negative OXYCODONE SCREEN Negative PHENCYCLIDINE SCREEN Negative Narrative: The expected value for all of the drugs listed above is Negative. The following drugs or drug groups have been screened for by Immunoassay at the following thresholds: Amphetamine class (1000 ng/mL) Barbiturates (200 ng/mL) Benzodiazepines (200 ng/mL) Cocaine (300 ng/mL) Methadone (300 ng/mL) Opiates (300 ng/mL) Oxycodone (100 ng/mL) PCP (25 ng/mL) NOTE: These results are for medical treatment only. Analysis performed using non-forensic procedures. POSITIVE results are NOT confirmed by a more specific alternative method unless requested. If confirmation is needed, request confirmation under separate order. HCG, RAPID SERUM HCG, RAPID SCREEN None Detected All other labs were within normal range or not returned as of this dictation. EMERGENCY DEPARTMENT COURSE and DIFFERENTIAL DIAGNOSIS/MDM: Vitals: Vitals: 10/04/24 1055 10/04/24 1058 10/04/24 1145 10/04/24 1456 BP: (!) 148/102 (!) 156/105 (!) 140/87 Pulse: 95 89 85 Resp: 16 16 18 Temp: 36.1 ?C (97 ?F) (!) 35.9 ?C (96.6 ?F) 36.4 ?C (97.6 ?F) TempSrc: Temporal Temporal Temporal SpO2: 96% 97% 95% Weight: 126 kg (278 lb) Patient presented for evaluation of possible psychiatric crisis. Patient is medically clear psych Bettina recommending discharge outpatient follow-up for which was done. Diagnoses as of 10/04/24 1531 Encounter for medical screening examination External records reviewed: Diagnostics interpreted by me: Discussions with other clinicians: Chronic conditions impacting care: Social determinants of health affecting care: ED Medications managed: Medications - No data to display Prescription drugs considered: PROCEDURES: Unless otherwise noted below, none Procedures FINAL IMPRESSION 1. Encounter for medical screening examination DISPOSITION Discharge 10/04/2024 03:06:48 PM PATIENT REFERRED TO: No follow-up provider specified. DISCHARGE MEDICATIONS: Discharge Medication List as of 10/04/2024 3:07 PM (Comment: Please note this report has been produced using speech recognition software and may contain errors related to that system including errors in grammar, punctuation, and spelling, as well as words and phrases that may be inappropriate. If there are any questions or concerns please feel free to contact the dictating provider for clarification.) Jeffrey Evans MD (electronically signed) Emergency Medicine Provider Jeffrey Evans MD Resident 10/04/24 1532 PROGRESS NOTE Observed: 10/04/2024 10:46 AM Status: COMPLETED Source: [facility] Attestation signed by Jani Carrillo MD at 10/04/2024 4:31 PM I saw and evaluated the patient, participating in the dave portions of the service. I reviewed the resident?s note. I agree with the resident?s findings and plan, with additions as below: Patient on exam demonstrates no significant findings consistent with acute psychosis. Suspect her voices and new personality are more consistent with a dissociative condition exacerbated by feelings of anxiety. She does not meet criteria involuntary psychiatric admission and declines voluntary admit. She would benefit from further treatment to improve her coping skills and resiliency and can continue this at [facility]. She is agreeable to return for worsening symptoms and call [facility] to schedule with their IOP Monday. Jani Carrillo MD Department of [facility] Evaluation CHIEF COMPLAINT: Chief Complaint Patient presents with Psychiatric Evaluation Pt sent by therapist for crisis evaluation. Pt she she does not want to but is unable to make people around her satisfied. Pt states she has multiple personalities. I am everywhere but nowhere I feel like I'm always losing denies HI. Pt admits to new voice in her head names caesar HISTORY OF PRESENT ILLNESS: The patient is a 34 y.o.female with significant past medical history of MRDD, schizoaffective disorder bipolar type, PTSD, depression, anxiety, multiple personalities who arrived by self transportation with a chief complaint of wanting a psychiatric evaluation. Pt reports that she saw her outpatient therapist through [facility] yesterday and they made her promise that she would come to the ED today for an evaluation to talk about anxiety. Patient is adamant that there are no safety concerns - she denies SI and HI. She reports feeling that her anxiety is bad. She reports having a new personality that started about 1 week ago who has been saying that she needs to get help for her anxiety and she shared that with her therapist which is what prompted them to ask her to come in for further evaluation. In the ED patient was medically cleared for inpatient psychiatric admission. Laboratory workup largely non-contributory with negative UDS and ETOH. In meeting with the patient she provides the above report on circumstances leading up to her presentation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
[2025-08-23 21:06] VITALS: BP 130/98; PULSE 95; RESP 18; TEMP 37; O2SAT 97
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
--- NOTE | 2025-08-23 21:30 | RAD_ITS ---
PROCEDURE: RIGHT ELBOW MIN 3 VIEWS 08/23/2025 REASON FOR EXAM: FALL TECHNIQUE: Procedure Code: RADEL Modality: DX Procedure: ELBOW MIN 3 VIEWS Laterality: Right COMPARISON: None. FINDINGS: No acute fracture or dislocation. Alignment is anatomic. Preserved joint spaces. No joint effusion. No aggressive osseous lesion. No marked soft tissue swelling or radiopaque foreign body. RAD/Elbow min 3 Views IMPRESSION: No acute fracture or dislocation. Reading Location: [id number]
--- NOTE | 2025-08-23 21:30 | RAD_ITS ---
PROCEDURE: RIGHT WRIST MIN 3 VIEWS; FOREARM 2 VIEWS 08/23/2025 REASON FOR EXAM: FALL TECHNIQUE: Procedure Code: RADWR; RADFA Modality: DX Procedure: WRIST MIN 3 VIEWS; FOREARM 2 VIEWS Laterality: Right COMPARISON: None. FINDINGS: No acute fracture or dislocation. Alignment is anatomic. Preserved joint spaces. No aggressive osseous lesion. No appreciable soft tissue swelling or radiopaque foreign body. RAD/Forearm 2 Views IMPRESSION: No acute fracture or dislocation. Reading Location: [id number]
--- NOTE | 2025-08-23 21:30 | RAD_ITS ---
PROCEDURE: RIGHT WRIST MIN 3 VIEWS; FOREARM 2 VIEWS 08/23/2025 REASON FOR EXAM: FALL TECHNIQUE: Procedure Code: RADWR; RADFA Modality: DX Procedure: WRIST MIN 3 VIEWS; FOREARM 2 VIEWS Laterality: Right COMPARISON: None. FINDINGS: No acute fracture or dislocation. Alignment is anatomic. Preserved joint spaces. No aggressive osseous lesion. No appreciable soft tissue swelling or radiopaque foreign body. RAD/Wrist min 3 Views IMPRESSION: No acute fracture or dislocation. Reading Location: [id number]
[2025-08-23 22:19] VITALS: BP 116/78; PULSE 83; RESP 16; TEMP 36.7; O2SAT 97
== END 2025-08-23 22:23 | disposition home or self-care (01) ==
PROVIDERS: Emergency Provider Emergency Medicine; PCP Internal Medicine; Visit Provider Emergency Medicine
DX: M25.531 Pain in right wrist (principal); F20.9 Schizophrenia, unspecified; F31.9 Bipolar disorder, unspecified; R56.9 Unspecified convulsions; F41.9 Anxiety disorder, unspecified; V48.4XXA Person boarding or alighting a car injured in noncollision transport accident, initial encounter; Y92.810 Car as the place of occurrence of the external cause; I10 Essential (primary) hypertension; J45.909 Unspecified asthma, uncomplicated; K58.9 Irritable bowel syndrome, unspecified; K21.9 Gastro-esophageal reflux disease without esophagitis; F17.210 Nicotine dependence, cigarettes, uncomplicated; F17.290 Nicotine dependence, other tobacco product, uncomplicated; Z79.899 Other long term (current) drug therapy
CPT/HCPCS: 73080; 73090; 73110; 99284

== ENCOUNTER 2025-11-05 07:09 | Emergency (ER) | payer MEDICAID, SELFPAY ==
[2025-11-05 07:09] VITALS: BP 174/101; PULSE 101; RESP 18; TEMP 36.9; O2SAT 100; BMI 53.8
--- NOTE | 2025-11-05 07:15 | RAD_ITS ---
PROCEDURE: CHEST PA AND LATERAL 11/05/2025 REASON FOR EXAM: RIB PAIN POST BENDING OVER HX OF PRIOR FX TECHNIQUE: Procedure Code: RADCXR Modality: DX Procedure: CHEST PA AND LATERAL COMPARISON: 06/06/2021 chest x-ray FINDINGS: Hardware: None Heart: The heart size is normal. Mediastinum: The mediastinal contour is unremarkable. Lungs: The lungs are clear. Bones: The bones are unremarkable. RAD/Chest PA and Lateral IMPRESSION: No acute cardiopulmonary abnormality. Reading Location: [facility]
--- NOTE | 2025-11-05 07:22 | EDS_ITS ---
HPI History of Present Illness Chief Complaint: Chest Other Detail of Chief Complaint: Atraumatic right lower rib cage pain that began this morning around 4:30 AM Informant: patient Onset/Context/Timing Onset: Today and Hours Activity at onset: sudden Timing: Continuous Quality: Positive for Pain and Sharp Location: - (Right lower rib cage.) Current Severity: Moderate Maximum Severity: Moderate Worsened By: Movement of Torso Associated Symptoms: Negative for Nausea, Vomiting, Diaphoresis, Dyspnea, Cough, Fever, Lightheadedness, Acid Reflux or Palpitations Narrative Narrative: 35-year-old female history of bipolar, breast cancer and substance abuse history. History of prior right lower rib fractures. Says she was in her normal state of health this morning she got up around 430 send she bent over and felt a pop in her right lower rib cage and had pain since that time. Denies any fall injury or trauma. This is the same area she reportedly was diagnosed with rib fractures in the past. She denies any recent illness. Denies any nausea or vomiting or fever. States the pain is worse with movement of her torso. Prior Similar Symptoms: Yes Recent Illness/Hospitalization: No CVD Risk Factors: Negative for Hypertension or Diabetes PE Risk Factors: Negative for Recent Travel/Surgery, Recent Immobilization, Prior DVT or PE, Cancer or OCP + Smoking + >/=35 TAD Risk Factors: Negative for Marfan's Syndrome [facility] Medical History Depression Choledocholithiasis Suicidal thoughts Memory loss Schizophrenia Bipolar 1 disorder Seizures Hypertension GERD (gastroesophageal reflux disease) IBS (irritable bowel syndrome) Hypocalcemia Neuropathy Anxiety and depression History of substance abuse Asthma Arthritis Seasonal allergies History of alcohol abuse Home Medications ?Medication ?Instructions ?Recorded ?Last Taken ?Type omeprazole 20 mg capsule,delayed 20 mg PO DAILY GERD 0 03/10/18 09/11/20 History release haloperidol 5 mg tablet 5 mg PO DAILY psych 06/15/19 08/05/21 08:30 History albuterol sulfate 90 mcg/actuation 2 puff inhalation Q 6H PRN 11/25/20 Unknown History aerosol inhaler (Ventolin HFA) Shortness Of Breath folic acid 1 mg tablet 1 mcg PO DAILY supplement 07/08/21 History [id number] 3.3 4 drp LEFT EAR TID 7 d ays #10 mL 06/07/21 Unknown Rx mg-3 mg-10 mg-0.5 mg/mL ear drops,susp (Cortisporin-TC) trazodone 100 mg tablet 100 mg PO QHS sleep 07/08/21 07/08/21 History haloperidol decanoate 50 mg/mL 50 mg IM QMONTH psych 0 07/09/21 06/27/21 History intramuscular solution ibuprofen 400 mg tablet 400 mg PO Q4H PRN PRN Pain 1 -10 Or 07/10/21 Unknown Rx Fever #0 tabs oxycodone 5 mg tablet 5 - 10 mg (1 - 2 x 5 mg) PO Q6H 07/10/21 Unknown Rx PRN pain 5 days #20 tabs Allergy/AdvReac Type Severity Reaction Status Date / Time Bleach (Sodium Hypochlorite) Allergy Mild rash Verified 11/05/25 07:12 acetaminophen Allergy breaks Verified 11/05/25 07:12 out in hives and throat swells shut bacitracin Allergy Unknown Verified 11/05/25 07:12 Latex, Natural Rubber Allergy Rash Verified 11/05/25 07:12 Penicillins Allergy Unknown Verified 11/05/25 07:12 Family History Aunt Diabetes Father Myocardial infarction, Onset Age: 50 Grandmother Myocardial infarction, Onset Age: 70 Other Alcoholism Anxiety and depression Arthritis Asthma Breast cancer CVA (cerebral vascular accident) Cancer Colon cancer Heart disease Hyperlipemia Hypertension Kidney disease Liver disease Osteoporosis Thyroid disorder Surgical History S/P ERCP S/P laparoscopic cholecystectomy History of removal of cyst History of hernia repair History of breast biopsy Social History Smoking Status: Former smoker Tobacco: How many years used: 22 alcohol intake: current substance use type: marijuana what type of physical activity do you participate in: walking and bicycling ROS ROS ED ROS Narrative Denies recent illness. Constitutional Constitutional ED: Denies chills or fever(s) Eyes Eyes: Reports none ENT ENT ED: Denies ear pain Cardiovascular Cardiovascular: Reports other Details: Right lower rib cage pain. Respiratory/Chest Respiratory/Chest: Denies cough or dyspnea Gastrointestinal Gastrointestinal: Denies abdominal pain, constipation, diarrhea, melena, nausea or vomiting Genitourinary Genitourinary ED: Denies dysuria or hematuria Musculoskeletal Musculoskeletal: Denies arthralgias Integumentary Denies abscess Neurologic Neurologic: Denies headache(s) Psychiatric Psychiatric: Denies anxiety or depression Endocrine Endocrinology: Denies cold intolerance Hematologic/Lymphatic Hematologic/Lymphatic: Denies easy bleeding, easy bruising or lymphadenopathy Allergic/Immunologic Allergic/Immunologic ED: Denies mouth swelling, tongue swelling or urticaria EXAM Physical Exam Narrative Exam Narrative: 35-year-old female sitting upright in bed. Vital signs are stable afebrile. Pulse ox 100% on room air no signs of hypoxia. Complaining of right lower rib cage pain. H EENT exam pupils round react light. Moist mutes membranes. Neck nontender no JVD. No lymphadenopathy. Back nontender. Lungs clear to auscultation bilaterally. Heart regular rhythm rate about 100 no murmur. Chest wall and sternum are nontender except right lower rib cage midclavicular and midaxillary line that area there is tenderness to the ribs themselves. There is no ecchymosis or bruising. There is no subcu air or crepitance. There is no rash or signs of trauma. Normal in appearance. Abdomen is soft, nontender, nondistended, normal bowel sounds without peritoneal signs. Moving all 4 extremities. Normal nursery rn strength. Normal dorsi plantarflexion. Neurologically she is awake alert. Answering questions and following commands no focal motor deficits. Const Vital Signs: 11/05/25 07:09 11/05/25 07:16 Temperature 98.4 F Temperature Source Oral Pulse Rate 101 H Respiratory Rate 18 Respiratory Effort Normal Non-Labored Blood Pressure 174/101 H Blood Pressure Mean 125 Pulse Ox 100 Oxygen Delivery Method Room Air MDM MDM MDM Narrative Medical decision making narrative: 35-year-old female reported history of rib fractures 3 to 4 months ago diagnosed in [place]. States that she bent over today felt a pop and has pain in the same right lateral and lower ribs. Denies any other complaints felt fine prior to this occurring today. A chest x-ray will be obtained. Repeat exam no significant change she and I went over her x-ray results. I explained to her there is no obvious fractures or pneumothorax on the chest x- ray. It does not rule out nondisplaced fractures that may not be seen. History & Record Review Discussion w/independent historian: Patient Additional record(s) reviewed:: Prior outpatient record, Prior ED visit and Prior labs Radiography Chest X-Ray - ED: 2 View, Read by ED Physician, Read by Radiologist, Heart, Lungs, Mediastinum, Bony Structures, No Acute Disease and Chronic Changes Diagnostic Testing: Clinical Impression(s) from Imaging Studies Chest X-Ray 11/05/25 07:15 IMPRESSION: No acute cardiopulmonary abnormality. Reading Location: [facility] Chest x-ray, 2 views, AP and lateral, interpreted by myself I did go over the film with the patient. In the radiologist shows no acute abnormality. Normal cardiac silhouette. Normal lung khan. No pneumothorax. No obvious rib fractures. Discharge Plan Triage Chief Complaint: Chest Other ED Provider: Alvaro Peck Dx/Rx/DC Orders Clinical Impression: Rib pain, History of fractured rib Instructions: ED Chest Wall Strain Prescriptions: No Action albuterol sulfate [Ventolin HFA] 90 mcg/actuation HFA aerosol inhaler 2 puff INHALATION Q6H PRN (Reason: Shortness Of Breath) omeprazole 20 MG capsule 20 mg PO DAILY haloperidol 5 tablet 5 mg PO DAILY folic acid 1 mg tablet 1 mcg PO DAILY Cortisporin-TC 3.3-3-10-0.5 mg/mL drops,suspension 4 drp LEFT EAR TID 7 Days Qty: 10 0RF trazodone 100 mg tablet 100 mg PO QHS haloperidol decanoate 50 mg/mL solution 50 mg IM QMONTH ibuprofen 400 mg Tablet 400 mg PO Q4H PRN PRN (Reason: Pain 1-10 Or Fever) Qty: 0 0RF oxycodone 5 mg tablet 5 - 10 mg PO Q6H PRN (Reason: pain) 5 Days Qty: 20 0RF Primary Care Provider: Gayatri Grubbs Referrals: Gayatri Grubbs MD [Primary Care Provider, Internal Medicine] - As Needed Activity Restrictions/Additional Instructions: Hold the pillow to the right lower rib cage to help brace it to help with the pain. There are no broken ribs seen on the x-ray. You could have a small crack that we do not see on x-ray versus a chest wall strain. They would be treated the same way. Ice to the area. Motrin for pain and Tylenol. This should progressively improve. If not follow-up your primary care provider. Print Language: Korean Disposition Disposition: Home, Self Care
--- OUTSIDE RECORDS SUMMARY | 2025-11-05 07:44 | XMS RPT_ITS | CCD ---
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 osseous lesion. No appreciable soft tissue swelling or radiopaque foreign body. RAD/Forearm 2 Views IMPRESSION: No acute fracture or dislocation. Reading Location: [facility] CC: Dr. Selena Robert MD; Dr. Seferino Callahan DO Computer Security Specialist: Signed Normal [facility] Wrist min 3 Viewson 08-23-20 Wrist min 3 Views [facility] Imaging Services [address] [place] [address] Wrist min 3 Views MR#: [id number] Acct: [id number] Name: MARIELLA CHRISTINE Rep #: [id number] : 1990 F 35 From: Foster Medellin MD PCP: Dr. Selena Robert MD Status: REG ER Study: Wrist min 3 Views Date of Exam: 08/23/25 Exam# [id number] Ordering Dr: Seferino Callahan DO PROCEDURE: RIGHT WRIST MIN 3 VIEWS; FOREARM 2 VIEWS 08/23/2025 REASON FOR EXAM: FALL TECHNIQUE: Procedure Code: RADWR; RADFA Modality: DX Procedure: WRIST MIN 3 VIEWS; FOREARM 2 VIEWS Laterality: Right COMPARISON: None. FINDINGS: No acute fracture or dislocation. Alignment is anatomic. Preserved joint spaces. No aggressive osseous lesion. No appreciable soft tissue swelling or radiopaque foreign body. RAD/Wrist min 3 Views IMPRESSION: No acute fracture or dislocation. Reading Location: [facility] CC: Dr. Selena Robert MD; Dr. Seferino Callahan DO Computer Security Specialist: Signed Normal [facility] Bilirubin Test strip Ql (U)O rdered By: Conor Figeuredo on 07-17-2025 Bilirubin Ql (U) Negative Negative [facility] Emergency Department Summary on 07-17-2025 Emergency Department Summary [facility] Medical Records Department [address] [place] [address] Emergency Department Summary 07/17/25 MR#: [id number] Acct: [id number] Name: MARIELLA CHRISTINE Rep #: [id number] : 1990 35 From: Conor Figueredo MD PCP: Dr. Selena Robert MD Status:REG ER Location: ED HPI HPI - Female History of Present Illness Chief Complaint: Informant: patient and family Narrative Narrative: 35-year-old female states for the past 3 days she has had some perineal/vaginal discomfort so she has been sticking her finger in her vagina and feeling that it is sore. She states her last normal menstrual cycle was 8 months ago and she has had several urine and blood tests that were positive for . She states she is from [place], which is where her OB is. She states she last had an ultrasound in April and does not remember what they said about how far along she is. She states she is a G4, by miscarriage. She denies any fevers, chills, nausea, vomiting, diarrhea, she has some mild dysuria and some urinary frequency but no hematuria, along with some mild pelvic discomfort. No vaginal discharge she denies having any vaginal bleeding recently. She states before a month ago she was regular. She states she was recently kicked out of her living situation so she came down here to [facility]. [facility] Medical History Depression Choledocholithiasis Suicidal thoughts Memory loss Schizophrenia Bipolar 1 disorder Seizures Hypertension GERD (gastroesophageal reflux disease) IBS (irritable bowel syndrome) Hypocalcemia Neuropathy Anxiety and depression History of substance abuse Asthma Arthritis Seasonal allergies History of alcohol abuse Home Medications ???Medication ???Instructions ???Recorded ???Last Taken ???Type omeprazole 20 mg capsule,delayed 20 mg PO DAILY GERD 03/10/1809/11 History release haloperidol 5 mg tablet 5 mg PO DAILY psych 06/15/1908/05 08:30 History albuterol sulfate 90 mcg/actuation 2 puff inhalation Q6H PRN Unknown History aerosol inhaler (Ventolin HFA) Shortness Of Breath folic acid 1 mg tablet 1 mcg PO DAILY supplement 06/06/21 07/08/21 History vurflukv-kvxzlx-NF- thonzonm 3.3 4 drp LEFT EAR TID 7 days #10 mL 0 06/07/21 Unknown Rx mg-3 mg-10 mg-0.5 mg/mL ear drops,susp (Cortisporin-TC) trazodone 100 mg tablet 100 mg PO QHS sleep 07/08/2107/08 History haloperidol decanoate 50 mg/mL 50 mg IM QMONTH psych 07/09/2112/17 History intramuscular solution ibuprofen 400 mg tablet 400 mg PO Q4H PRN PRN Pain 1-10 Or 07/10/21 Unknown Rx Fever #0 tabs oxycodone 5 mg tablet 5 - 10 mg (1 - 2 x 5 mg) PO Q6H Unknown Rx PRN pain 5 days #20 tabs Allergy/AdvReac Type Severity Reaction Status Date / Time Bleach (Sodium Hypochlorite) Allergy Mild rash Verified 07/17/25 18:27 acetaminophen Allergy breaks Verified 07/17/25 18:27 out in hives and throat swells shut bacitracin Allergy Unknown Verified 07/17/25 18:27 Latex, Natural Rubber Allergy Rash Verified 07/17/25 18:27 Penicillins Allergy Unknown Verified 07/17/25 18:27 Family History Aunt Diabetes Father Myocardial infarction, Onset Age: 50 Grandmother Myocardial infarction, Onset Age: 70 Other Alcoholism Anxiety and depression Arthritis Asthma Breast cancer CVA (cerebral vascular accident) Cancer Colon cancer Heart disease Hyperlipemia Hypertension Kidney disease Liver disease Osteoporosis Thyroid disorder Surgical History S/P ERCP S/P laparoscopic cholecystectomy History of removal of cyst History of hernia repair History of breast biopsy Social History Smoking Status: Current every day smoker tobacco type: cigarettes and e-cigarettes Tobacco: How many years used: 22 alcohol intake: current substance use type: marijuana what type of physical activity do you participate in: walking and bicycling ROS ROS ED Constitutional Constitutional ED: Denies chills or fever(s) Eyes Eyes: Denies change in vision or diplopia ENT ENT ED: Denies rhinorrhea or sore throat Cardiovascular Cardiovascular: Denies chest pain or palpitations Respiratory/Chest Respiratory/Chest: Denies cough or dyspnea Gastrointestinal Gastrointestinal: Reports abdominal pain; Denies diarrhea, nausea or vomiting Genitourinary Genitourinary ED: Reports as per HPI, dysuria and urinary frequency; Denies hematuria Musculoskeletal Musculoskeletal: Denies back pain or neck pain Integumentary Denies abscess or rash Neurologic Neurologic: Henry (more content not included)... Normal [facility] Ketones Test strip Ql (U)Ord ered By: Conor Figueredo on 07-17-2025 Ketones Ql (U) Negative Negative [facility] Microscopic analysis of urin e for red blood cells (RBC)Ordered By: Conor Figueredo on 07-17-2025 Microscopic analysis of urine for red blood cells (RBC) 0-5 SEEN /hpf 0-5 [facility] Mucus LM Ql (Urine sed)Order ed By: Conor Figueredo on 07-17-2025 Mucus Ql (Urine sed) 0 SEEN /hpf [facility] Nitrite Test strip Ql (U)Ord ered By: Conor Figueredo on 07-17-2025 Nitrite Ql (U) Negative Negative [facility] ,Urineon 07-17-2025 Beta HCG ( test) Ql (U) Negative Normal [facility] Comment on above: Order Comment: Result Comment: Very dilute urine specimens, as indicated by a low specific gravity, may not contain teleservices representative levels of hCG. If is still suspected, a first morning urine specimen should be collected 48 hours later and tested. Performed By: #### L 400.0001, L400.7600 #### [facility] [address] [place], [address] Protein Test strip Ql (U)Ord ered By: Conor Figueredo on 07-17-2025 Protein Ql (U) 15 mg/dl High Negative [facility] Squamous epithelial cells de tection in urine sediment by light microscopyOrdered By: Conor Figueredo on 07-17-2025 Epithelial cells.squamous LM Ql (Urine sed) 0-5 SEEN /hpf 5-10 [facility] Urinalysis, Completeon 07-17 EPI,SQUAMOUS 0-5 SEEN Normal 5-10 [facility] Comment on above: Order Comment: CLEAN CATCH Performed By: #### L 400.0001, L400.7600 #### [facility] [address] [place], [address] RBC 0-5 SEEN Normal 0-5 [facility] Comment on above: Order Comment: CLEAN CATCH Performed By: #### L 400.0001, [id number] #### [facility] [address] [place], [address] WBC 0-5 SEEN Normal 0-5 [facility] Comment on above: Order Comment: CLEAN CATCH Performed By: #### L 400.0001, L400.7600 #### [facility] [address] [place], [address] BACTERIA 0 SEEN Normal None Seen [facility] Comment on above: Order Comment: CLEAN CATCH Performed By: #### L 400.0001, [id number] #### [facility] [address] [place], [address] Mucus Ql (Urine sed) 0 SEEN Normal [facility] Comment on above: Order Comment: CLEAN CATCH Performed By: #### L 400.0001, [id number] #### [facility] [address] [place], [address] Urine clarityOrdered By: Ean Figueredo on 07-17-2025 Clarity (U) Clear Clear [facility] Urine color determinationOrd ered By: Conor Figueredo on 07-17-2025 Color (U) Straw Yellow [facility] Urine glucose detectionOrder ed By: Conor Figueredo on 07-17-2025 Glucose Ql (U) Normal mg/dl Normal [facility] Urine leukocyte esterase det ection by dipstickOrdered By: oCnor Figueredo on 07-17-2025 Leukocyte esterase Test strip Ql (U) Negative Negative [facility] Urine pHOrdered By: Conor Figueredo on 07-17-2025 pH (U) 6.0 [pH] 5.0 - 8.0 [facility] Urine testOrdered By: Conor Figueredo on 07-17-2025 HCG ( test) Ql (U) Negative [facility] Comment on above: Very dilute urine sp ecimens, as indicated by a low specificgravity, may not contain teleservices representative levels of hCG. If is still suspected, a first morning urinespecimen should be collected 48 hours later and tested. Urine sediment bacteria coun t by microscopy (number/high power field)Ordered By: Conor Figueredo on 07-17-2025 Bacteria LM.HPF (Urine sed) [#/Area] 0 /[HPF] None Seen [facility] Urine specific gravity measu rementOrdered By: Conor Figueredo on 07-17-2025 Specific gravity (U) [Rel density] 1.015 1.002-1.030 [facility] Urine urobilinogen measureme ntOrdered By: Conor Figueredo on 07-17-2025 Urobilinogen Ql (U) Normal mg/dl Normal [facility] White blood cell countOrdere d By: Conor Figueredo on 07-17-2025 White blood cell count 0-5 SEEN /hpf 0-5 [facility] CNPNon 05-20-2025 CNPN Telephone (OBGYWM) ---- MARIELLA CHRISTINE ([id number]) 1990 F T Date Time Provider Department 05/20/25 MARICARMEN BESS [...] she received confirmation of in February at [facility]. PSS spoke with triage nurse who advised patient report to ER [facility] to be reevaluated then contact [facility] to see if the practice could [...] 05/21/2025 9:44 AM Signed [facility] ER. No records in Care Everywhere at any other locations either. Sushila Valladares RN Allergies As of Date: 05/20/2025 Noted Allergy Reaction LATEX 06/04/2010 2 - Rash PENICILLINS 06/04/2010 Comments: States mother told her she was allergic and doesn't rember what the reaction was Date Reviewed: 06/09/2024 Reviewed by: Samantha Bello RN - Fully Assessed Reason for Visit: New [...] Resolved Epigastric Abdominal Pain [R10.13] 06/04/2010 Reflux [[id number]] 06/04/2010 Personal History of Other Psychological Trauma [...] Encounter Status:Closed by SUSHILA VALLADARES on 05/21/25 Normal [facility] Emergency Department Summary on 05-18-2025 Emergency Department Summary [facility] Medical Records Department [address] [place] [address] Emergency Department Summary 05/18/25 MR#: [id number] Acct: [id number] Name: MARIELLA CHRISTINE Rep #: [id number] : 1990 35 From: Rustam Silvestre MD PCP: Dr. 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 She was bit by a b Relieved by: Benadryl Associated Symptoms Associated Symptoms: No other symptoms Narrative Narrative: Patient is a 35-year-old female who is cognitively impaired. 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 She presents because she needs an EpiPen. She denies swelling of her lips, tongue or throat. She denies any swelling of her face. She denies shortness of breath or wheezing. She denies palpitations or lightheadedness. She denies abdominal pain, nausea or vomiting. She denies rash. She took Benadryl prior to arrival. [facility] Medical History Depression Choledocholithiasis Suicidal thoughts Memory loss Schizophrenia Bipolar 1 disorder Seizures Hypertension GERD (gastroesophageal reflux disease) IBS (irritable bowel syndrome) Hypocalcemia Neuropathy Anxiety and depression History of substance abuse Asthma Arthritis Seasonal allergies History of alcohol abuse Home Medications ???Medication ???Instructions ???Recorded ???Last Taken ???Type omeprazole 20 mg capsule,delayed 20 mg PO DAILY GERD 03/10/1809/11 History release haloperidol 5 mg tablet 5 mg PO DAILY psych 06/15/1908/05 08:30 History albuterol sulfate 90 mcg/actuation 2 puff inhalation Q6H PRN Unknown History aerosol inhaler (Ventolin HFA) Shortness Of Breath folic acid 1 mg tablet 1 mcg PO DAILY supplement 06/06/21 07/08/21 History fbdbuchk-ljrpno-KJ- thonzonm 3.3 4 drp LEFT EAR TID 7 days #10 mL 0 06/07/21 Unknown Rx mg-3 mg-10 mg-0.5 mg/mL ear drops,susp (Cortisporin-TC) trazodone 100 mg tablet 100 mg PO QHS sleep 07/08/2107/08 History haloperidol decanoate 50 mg/mL 50 mg IM QMONTH psych 07/09/2112/17 History intramuscular solution ibuprofen 400 mg tablet 400 mg PO Q4H PRN PRN Pain 1-10 Or 07/10/21 Unknown Rx Fever #0 tabs oxycodone 5 mg tablet 5 - 10 mg (1 - 2 x 5 mg) PO Q6H Unknown Rx PRN pain 5 days #20 tabs Allergy/AdvReac Type Severity Reaction Status Date / Time Bleach (Sodium Hypochlorite) Allergy Mild rash Verified 05/18/25 12:49 acetaminophen Allergy breaks Verified 05/18/25 12:49 out in hives and throat swells shut bacitracin Allergy Unknown Verified 05/18/25 12:49 Latex, Natural Rubber Allergy Rash Verified 05/18/25 12:49 Penicillins Allergy Unknown Verified 05/18/25 12:49 Family History Aunt Diabetes Father Myocardial infarction, Onset Age: 50 Grandmother Myocardial infarction, Onset Age: 70 Other Alcoholism Anxiety and depression Arthritis Asthma Breast cancer CVA (cerebral vascular accident) Cancer Colon cancer Heart disease Hyperlipemia Hypertension Kidney disease Liver disease Osteoporosis Thyroid disorder Surgical History S/P ERCP S/P laparoscopic cholecystectomy History of removal of cyst History of hernia repair History of breast biopsy Social History Smoking Status: Former smoker Tobacco: How many years used: 22 alcohol intake: current substance use type: marijuana what type of physical activity do you participate in: walking and bicycling ROS ROS ED Constitutional Constitutional ED: Denies chills or fever(s) Eyes Eyes: Denies blurry vision or change in vision ENT ENT ED: Reports other Details: HPI narrative ; Denies ear pain, rhinorrhea or sore throat Cardiovascular Cardiovascular: Denies chest pain or palpitations Respiratory/Chest Respiratory/Chest: Denies cough, dyspnea or dyspnea on exertion Gastrointestinal Gastrointestinal: Denies abdominal pain, nausea or vomiting Musculoskeletal Musculoskeletal: Denies arthralgias or myalgias Integumentary Denies rash Neurologic Neurologic: Denies paresthesias or weakness Psychiatric Psychiatric: Reports anxiety Hematologic/Lymphat ic Hematologic/Lymphat ic: Reports systems reviewed and no addt'l co (more content not included)... Normal [facility] ED Provider Noteon ED Provider Note [...] - Food Insecurity Present (09/12/2024) Received from [facility] Hunger Vital Sign Worried About Running [...] Session: Patient declined Stress: Patient Declined (12/06/2024) [employer] - Occupational Stress Questionnaire Feeling of Stress : Patient declined Social Connections: Patient Declined (12/06/2024) Social Connection and Isolation Panel [NHANES] Frequency of Communication with Friends and Family: Patient declined Frequency of Social Gatherings with Friends and Family: Patient declined Attends Taoism Services: Patient declined Active Member of Clubs [...] Cardiovascular: R (more content not included)... Normal [facility] No Panel Informationon 03-21 No acute osseous [...] MD Electronically Signed Date/Time: 03/21/2025 6:38 PM T [facility] No Panel InformationOrdered By: Caron Reece on 03-21-2025 Vdolg Phone: XR Ankle - left 3 Viewson Patient Name: MARIELLA CHRISTINE : 1990 [id number] Exam Date/Time: 03/21/2025 18:27 Procedure: XR ANKLE [...] maintained. The soft tissues are grossly unremarkable. [facility] Caron Reece MD - 03/21/2025 Patient Name: MARIELLA CHRISTINE : 1990 [facility] [id number] Exam Date/Time: 03/21/2025 18:27 Procedure: XR ANKLE [...] Electronically Signed Date/Time: 03/21/2025 6:38 PM EDT [facility] Radiology Study observation (narrative) [facility] XR Foot - left 3 Viewson [...] maintained. The soft tissues are grossly unremarkable. [facility] Caron Reece MD - 03/21/2025 Patient [...] Electronically Signed Date/Time: 03/21/2025 6:38 PM EDT [facility] Radiology Study observation (narrative) Eleno cervantes XR Tibia and Fibula - left 2 [...] maintained. The soft tissues are grossly unremarkable. [facility] Caron Reece MD - 03/21/2025 Patient Name: [...] Electronically Signed Date/Time: 03/21/2025 6:38 PM EDT [facility]ative[facility] 30 Problem: Sensory Perceptual [...] signs/symptoms of illness/treatment options 12/06/2024 1443 by aNldo Beck RN Outcome: Adequate for Discharge 12/06/2024 [...] Discharge Goal: Free from restraint events 12/06/2024 144 by Naldo Beck RN Outcome: Adequate for Discharge 12/06/2024 144 by Naldo Beck RN Outcome: Adequate for Discharge Normal [facility] [id number] 12-06-2024 [id number] Patient is discharging prior to psychosocial assessment being completed by social work. Patient is discharging from the hospital today. She denies any thoughts to harm herself or others. She denies concerns with discharge states she is feeling much better overnight. She will continue with her outpatient providers at [facility]. Her cousin will pick her up at discharge. [facility] Behavioral Health Treatment Planon 12-06-2024 Behavioral Health [...] to her by a bystander waiting outside [facility] emergency services. States she did not know [...] No chart history of psychiatric admissions. Normal [facility] ECG 12-LEADon 12-06-2024 ECG 12-LEAD IMPRESSION: Sinus arrhythmia Low voltage, precordial leads Electronically Signed On 12-06-2024 18:53:59 EST by Law Camilo Normal [facility] ED Nursing Noteon 12-06-2024 ED Nursing Note Patient walked to the wheelchair. Patient was taken to AV with [facility] police. Normal [facility] ED Nursing Note Transport and protective services at bedside to take Pt to [facility]. 2 bags of belongings going up with Pt as well as paperwork Normal [facility] ED Nursing Note Transport here, Protective services called [facility] ED Nursing Note Patient report was given to Alessio ESTRADA and transport was arranged. Patient is sleeping in room. Normal [facility] ED Nursing Note SEAN Bennett at bedside for vitals Normal [facility] ED Nursing Note EKG at bedside Normal [facility] Nursing Noteon 12-06-2024 Nursing Note Denies SI/HI. Signed AVS. Denies questions, out in public areas. Guided to ride pickup from home, for discharge. Normal [facility] Nursing Note Calm and cooperative. Denies SI/HI. Denies voices or hallucinations. Denies pain, no distress. Denies needs. Anticipating a future discharge. Called [facility] [address] at [facility], meds verified. Out in public areas. Full med compliance. Normal [facility] Nursing Note Pt arrived to [facility] at 0511 via wheelchair accompanied by nursing finishing room supervisor and security. Pt oriented to room [...] No further concerns at this time. Normal [facility] CBC WITH AUTO DIFFERENTIALon 12-05-2024 Basophils (Bld) [#/Vol] 0.0 10*3/uL Normal 0.0-0.2 [facility] Comment on above: Performed By: #### L [id number] ####Shop Supervisor: SADIE YANG ([phone])[facility])[address] [place] [address] Basophils/100 WBC (Bld) 0.6 % Normal 0.0-2.0 [facility] Comment on above: Performed By: #### L [id number] ####Shop Supervisor: SADIE YANG ([phone])[facility])[address] [place] [address] Eosinophils (Bld) [#/Vol] 0.2 10*3/uL Normal 0.0-0.5 [facility] Comment on above: Performed By: #### L [id number] ####Shop Supervisor: SADIE YANG ([phone])[facility])[address] [place] [address] Eosinophils/100 WBC (Bld) 2.7 % Normal 0.0-6.0 [facility] Comment on above: Performed By: #### L [id number] ####Shop Supervisor: SADIE YANG ([phone])[facility])[address] [place] [address] Erythrocyte distribution width (RBC) [Ratio] 12.0 % Normal 11.5-15.0 [facility] Comment on above: Performed By: #### L [id number] ####Shop Supervisor: SADIE YANG ([phone])[facility])[address] [place] [address] Hematocrit (Bld) [Volume fraction] 42.6 % Normal 35.0-47.0 [facility] Comment on above: Performed By: #### L [id number] ####Shop Supervisor: SADIE YANG ([phone])[facility])[address] [place] [address] [place] Hemoglobin (Bld) [Mass/Vol] 14.6 g/dL Normal 11.7-16.0 [facility] Comment on above: Performed By: #### L [id number] ####Shop Supervisor: SADIE YANG ([phone])[facility])[address] [place] [address] IMMATURE GRANS % 0.3 % Normal 0.0-2.0 [facility] Comment on above: Performed By: #### L [id number] ####Shop Supervisor: SADIE YANG ([phone])[facility])[address] [place] [address] IMMATURE GRANS ABSOLUTE 0.0 10*3/uL Normal <0.1 [facility] Comment on above: Performed By: #### L [id number] ####Shop Supervisor: SADIE YANG ([phone])[facility])[address] [place] [address] [place] IPF 8 Normal [facility] Comment on above: Performed By: #### L [id number] ####Shop Supervisor: SADIE YANG ([phone])[facility])[address] [place] [address] Lymphocytes (Bld) [#/Vol] 1.8 10*3/uL Normal 1.0-4.3 [facility] Comment on above: Performed By: #### L [id number] ####Shop Supervisor: SADIE YANG ([phone])[facility])[address] [place] [address] Lymphocytes/100 WBC (Bld) 26.6 % Normal 15.0-45.0 [facility] Comment on above: Performed By: #### L [id number] ####Shop Supervisor: SADIE YANG ([phone])[facility])[address] [place] [address] MCH (RBC) [Entitic mass] 30.2 pg Normal 26.0-34.0 [facility] Comment on above: Performed By: #### L [id number] ####Shop Supervisor: SADIE YANG ([phone])[facility] ([facility])[address] [place] [address] MCHC 34.3 % Normal 30.5-36.0 [facility] Comment on above: Performed By: #### L [id number] ####Shop Supervisor: SADIE YANG ([phone])[facility] ([facility])[address] [place] [address] MCV (RBC) [Entitic vol] 88.2 fL Normal 77.0-99.0 [facility] Comment on above: Performed By: #### L [id number] ####Shop Supervisor: SADIE YANG ([phone])[facility] ([facility])[address] [place] [address] Monocytes (Bld) [#/Vol] 0.6 10*3/uL Normal 0.0-0.9 [facility] Comment on above: Performed By: #### L [id number] ####Shop Supervisor: SADIE YANG ([phone])[facility] ([facility])[address] [place] [address] Monocytes/100 WBC (Bld) 8.7 % Normal 5.0-13.0 [facility] Comment on above: Performed By: #### L [id number] ####Shop Supervisor: SADIE YANG ([phone])[facility] ([facility])[address] [place] [address] NEUTROPHILS ABSOLUTE 4.1 10*3/uL Normal 1.8-7.5 [facility] Comment on above: Performed By: #### L [id number] ####Shop Supervisor: SADIE YANG ([phone])[facility] ([facility])[address] [place] [address] Neutrophils/100 WBC (Bld) 61.1 % Normal 38.0-82.0 [facility] Comment on above: Performed By: #### L [id number] ####Shop Supervisor: SADIE YANG ([phone])[facility] ([facility])[address] [place] [address] [place] NRBC 0.0 /100 WBCs Normal 0.0-2.0 [facility] Comment on above: Performed By: #### L [id number] ####Shop Supervisor: SADIE YANG ([phone])[facility])[address] [place] [address] Platelet mean volume (Bld) [Entitic vol] 12.0 fL Normal 9.0-12.7 [facility] Comment on above: Performed By: #### L [id number] ####Shop Supervisor: SADIE YANG ([phone])[facility] ([facility])[address] [place] [address] Platelets (Bld) [#/Vol] 108 10*3/uL Low 140-440 [facility] Comment on above: Performed By: #### L [id number] ####Shop Supervisor: SADIE YANG ([phone])[facility] ([facility])[address] [place] [address] RBC (Bld) [#/Vol] 4.83 10*6/uL Normal 3.80-5.20 [facility] Comment on above: Performed By: #### L [id number] ####Shop Supervisor: SADIE YANG ([phone])[facility] ([facility])[address] [place] [address] WBC (Bld) [#/Vol] 6.7 10*3/uL Normal 3.6-10.7 [facility] Comment on above: Performed By: #### L [id number] ####Shop Supervisor: SADIE YANG ([phone])[facility] ([facility])[address] [place] [address] COMPREHENSIVE METABOLIC PANE Armando 12-05-2024 Albumin [Mass/Vol] 3.9 g/dL Normal 3.5-5.0 [facility] Comment on above: Performed By: #### L [id number], LAB17, LAB18 #### Shop Supervisor: SADIE YANG ([phone]) [facility] ([facility]) [address] [place] [address] ALP [Catalytic activity/Vol] 90 U/L Normal 40-150 [facility] Comment on above: Performed By: #### L AB46, LAB17, LAB18 #### Shop Supervisor: SADIE YANG ([phone]) [facility] ([facility]) [address] [place] [address] ALT [Catalytic activity/Vol] 13 U/L Normal <30 [facility] Comment on above: Performed By: #### Herminia AB46, LAB17, LAB18 #### Shop Supervisor: SADIE YANG ([phone]) [facility] ([facility]) [address] [place] [address] Anion gap [Moles/Vol] 9 mmol/L Normal 3-13 [facility] Comment on above: Performed By: #### Herminia AB46, LAB17, LAB18 #### Shop Supervisor: SADIE YANG ([phone]) [facility] ([facility]) [address] [place] [address] AST [Catalytic activity/Vol] 19 U/L Normal <34 [facility] Comment on above: Performed By: #### Herminia [id number], LAB17, LAB18 #### Shop Supervisor: SADIE YANG ([phone]) [facility] ([facility]) [address] [place] [address] Bilirubin [Mass/Vol] 0.4 mg/dL Normal <1.2 [facility] Comment on above: Performed By: #### Herminia CONTEH46, LAB17, LAB18 #### Shop Supervisor: SADIE YANG ([phone]) [facility] ([facility]) [address] [place] [address] [place] Calcium [Mass/Vol] 8.6 mg/dL Normal 8.4-10.2 [facility] Comment on above: Performed By: #### Herminia AB46, LAB17, LAB18 #### Shop Supervisor: SADIE YANG ([phone]) [facility] ([facility]) [address] [place] [address] [place] Chloride [Moles/Vol] 106 mmol/L Normal 98-107 [facility] Comment on above: Performed By: #### Herminia AB46, LAB17, LAB18 #### Shop Supervisor: SADIE YANG ([phone]) [facility] ([facility]) [address] [place] [address] [place] CO2 [Moles/Vol] 21 mmol/L Low 22-29 [facility] Comment on above: Performed By: #### Herminia [id number], LAB17, LAB18 #### Shop Supervisor: SADIE YANG ([phone]) [facility] ([facility]) [address] [place] [address] Creatinine [Mass/Vol] 1.26 mg/dL High 0.57-1.11 [facility] Comment on above: Performed By: #### Herminia CONTEH46, LAB17, LAB18 #### Shop Supervisor: SADIE YANG ([phone]) [facility]) [address] [place] [address] [place] GLOMERULAR FILTRATION RATE ML/MIN/1.73 SQ M.PREDICTED 56.9 mL/min/1.73m*2 Low >60.0 [facility] Comment on above: Result Comment: Calc ulation based on the Chronic Kidney Disease Epidemiology Collaboration (CKD-EPI) equation refit without adjustment for race Performed By: #### Herminia CONTEH46, LAB17, LAB18 #### Shop Supervisor: SADIE YANG ([phone]) [facility] ([facility]) [address] [place] [address] Glucose [Mass/Vol] 91 mg/dL Normal 74-100 [facility] Comment on above: Performed By: #### Herminia AB46, LAB17, LAB18 #### Shop Supervisor: SADIE YANG ([phone]) [facility]) [address] [place] [address] [place] Potassium [Moles/Vol] 3.7 mmol/L Normal 3.5-5.1 [facility] Comment on above: Result Comment: [facility] potassium values may be up to 0.5 mmol/L lower than serum values. Performed By: #### Herminia AB46, LAB17, LAB18 #### Shop Supervisor: SADIE YANG ([phone]) [facility] ([facility]) [address] [place] [address] Protein [Mass/Vol] 7.0 g/dL Normal 6.4-8.3 [facility] Comment on above: Performed By: #### L AB46, LAB17, LAB18 #### Shop Supervisor: SADIE YANG ([phone]) [facility] [address] [place] [address] Sodium [Moles/Vol] 136 mmol/L Normal 136-145 [facility] Comment on above: Performed By: #### L AB46, LAB17, LAB18 #### Shop Supervisor: SADIE YANG ([phone]) [facility] ([facility]) [address] [place] [address] Urea nitrogen [Mass/Vol] 10 mg/dL Normal 8-21 [facility] Comment on above: Performed By: #### L AB46, LAB17, LAB18 #### Shop Supervisor: SADIE YANG ([phone]) [facility]) [address] [place] [address] DRUGS OF ABUSEon 12-05-2024 AMPHETAMINE SCREEN Negative Normal [facility] Comment on above: Performed By: #### L [id number] ####Shop Supervisor: SADIE YANG ([phone])[facility])[address] [place] [address] BARBITURATES SCREEN Negative Normal [facility] Comment on above: Performed By: #### L [id number] ####Shop Supervisor: SADIE YANG ([phone])[facility])[address] [place] [address] [place] BENZODIAZEPINE SCREEN Negative Normal [facility] Comment on above: Performed By: #### L [id number] ####Shop Supervisor: SADIE YANG ([phone])[facility] ([facility])[address] [place] [address] COCAINE METAB. SCREEN Negative Normal [facility] Comment on above: Performed By: #### L [id number] ####Shop Supervisor: SADIE YANG ([phone])[facility] ([facility])[address] [place] [address] FENTANYL SCREEN, UR QUAL Positive Normal [facility] Comment on above: Result Comment: [...] under separate order. Performed By: #### L [id number] ####Shop Supervisor: SADIE YANG ([phone])[facility])[address] [place] [address] METHADONE SCREEN Negative Normal [facility] Comment on above: Performed By: #### L [id number] ####Shop Supervisor: SADIE YANG ([phone])[facility] ([facility])[address] [place] [address] OPIATES SCREEN Negative Normal [facility] Comment on above: Performed By: #### L [id number] ####Shop Supervisor: SADIE YANG ([phone])[facility] ([facility])[address] [place] [address] OXYCODONE SCREEN Negative Normal [facility] Comment on above: Performed By: #### L [id number] ####Shop Supervisor: SADIE YANG ([phone])[facility] ([facility])[address] [place] [address] PHENCYCLIDINE SCREEN Negative Normal [facility] Comment on above: Performed By: #### L [id number] ####Shop Supervisor: SADEI YANG ([phone])[facility] ([facility])[address] [place], [place] [id number] [facility] ED Nursing Noteon 12-05-2024 ED Nursing Note Donald RN at bedside to answer call light [facility] ED Nursing Note Donald RN at bedside [facility] ED Nursing Note 1 visitor at bedside. [facility] ED Nursing Note Pt To Room 48 [facility] ED Nursing Note Patient yelling during triage saying I am supposed to be having my 4th child Patient doubles over in seat and says oh God its coming again. Patient says I don't sleep, hopefully I will sleep tonight [facility] ED Nursing Note Pt states she smoked something today for the first time and does not know what it was. [facility] ED Provider Noteon ED Provider Note EMERGENCY [...] to her by a bystander waiting outside [facility] emergency services. States she did not know [...] - Food Insecurity Present (09/12/2024) Received from [facility] Hunger Vital Sign Worried About Running [...] Session: Patient declined Stress: Patient Declined (12/06/2024) [employer] - Occupational Stress Questionnaire Feeling of Stress : Patient declined Social Connections: Patient Declined (12/06/2024) Social Connection and [place] (more content not included)... Normal [facility] ETHANOLon 12-05-2024 ETHANOL IN SER/PLAS <10 Normal <10 [facility] Comment on above: Result Comment: ORDE R COMMENTS: STOCK SELECTOR depression is seen >100 mg/dL. NOTE: This result is for medical treatment only. Analysis performed using non-forensic procedures. Performed By: #### L AB46, LAB17, LAB18 #### Shop Supervisor: SADIE YANG ([phone]) [address] HCG QUALITATIVE URINEon Beta HCG ( test) Ql (U) Negative Normal Negative [facility] Comment on above: Result Comment: Plea se note: Very dilute urine specimens, as indicated by a low specific gravity, may not contain teleservices representative levels of hCG. If is still suspected, a first morning urine specimen should be collected 48 hours later and tested. ORDER COMMENTS: is the most common reason for HCG in urine, although choriocarcinoma, hydatidiform mole, and certain nontrophoblastic malignancies also result in detectable urinary HCG levels. Sensitivity = 20mIU/mL. Performed By: #### L [id number] ####Shop Supervisor: SADIE YANG ([phone])[facility] ([facility])[address] [place] [address] HEMOGLOBIN A1Con 12-05-2024 Glucose [Mass/Vol] 97 mg/dL Normal [facility] Comment on above: Result Comment: LING R COMMENTS: If not done within last 12 months HbA1c values of 5.7-6.4 percent indicate an increased risk for developing diabetes mellitus. HbA1c values greater than or equal to 6.5 percent are diagnostic of diabetes mellitus. For diagnosis of diabetes in individuals without unequivocal hyperglycemia, results should be confirmed by repeat testing. Performed By: #### L [id number] ####Shop Supervisor: SADIE YANG ([phone])[facility] ([facility])[address] [place] [address] HEMOGLOBIN A1C 5.0 %HbA1C Normal <5.7 [facility] Comment on above: Result Comment: Norm al less than 5.7% Prediabetes 5.7% to 6.4% Diabetes 6.5% or higher --HgbA1C levels may not be accurate in patients who have renal disease, received recent blood transfusions, are anemic, or who have dyshemoglobinemia. Performed By: #### L [id number] ####Shop Supervisor: SADIE YANG ([phone])[facility])[address] [place] [address] LIPID PANELon 12-05-2024 Cholesterol [Mass/Vol] 130 mg/dL Normal <200 [facility] Comment on above: Order Comment: If no t done within last 12 months Performed By: #### L [id number] #### Shop Supervisor: SADIE YANG ([phone]) [facility]) [address] [place] [address] Cholesterol in HDL [Mass/Vol] 41 mg/dL Low >=60 [facility] Comment on above: Order Comment: If no t done within last 12 months Performed By: #### L [id number] #### Shop Supervisor: SADIE YANG ([phone]) [facility] ([facility]) [address] [place] [address] Cholesterol.total/Choles terol in HDL [Mass ratio] 3 {ratio} Normal [facility] Comment on above: Order Comment: If no t done within last 12 months Result Comment: Ref Range: < 3 Low Risk for CHD 3-6 Mod Risk for CHD > 6 High Risk for CHD Performed By: #### L [id number] #### Shop Supervisor: SADIE YANG ([phone]) [facility] ([facility]) [address] [place] [address] LOW DENSITY LIPOPROTEIN 69 mg/dL Normal 0-<100 [facility] Comment on above: Order Comment: If no t done within last 12 months Performed By: #### L [id number] #### Shop Supervisor: SADIE YANG ([phone]) [facility] ([facility]) [address] [place] [address] NON-HDL CHOLESTEROL, CALCULATED 89 Normal <130 [facility] Comment on above: Order Comment: If no t done within last 12 months Performed By: #### L [id number] #### Shop Supervisor: SADIE YANG ([phone]) [facility] ([facility]) [address] [place] [address] Triglyceride [Mass/Vol] 101 mg/dL Normal <150 [facility] Comment on above: Order Comment: If no t done within last 12 months Performed By: #### L [id number] #### Shop Supervisor: SADIE YANG ([phone]) [facility] ([facility]) [address] [place] [address] VERY LOW DENSITY LIPOPROTEIN, CALCULATED 20 mg/dL Normal <=30 [facility] Comment on above: Order Comment: If no t done within last 12 months Performed By: #### L [id number] #### Shop Supervisor: SADIE YANG ([phone]) [facility] ([facility]) [address] [place] [address] SARS-COV-2 ANTIGENon 025 SARS-COV-2 ANTIGEN SARS-COV-2 ANTIGEN -BINAX Reference Negative Negative A negative result does not rule out the possibility of SARS-CoV-2 infection. NAAT-based methods should be considered for symptomatic patients presenting greater than seven days after onset of symptoms. Method: Lateral flow immunoassay. Fact sheets for healthcare providers and patients can be found at the following sites: https://www.fda.gov /media/407275/downl oad https://www.fda.gov /media/258720/downl oad Normal [facility] Comment on above: Performed By: #### L [id number] #### Shop Supervisor: SADIE YANG ([phone]) [facility] ([facility]) [address] [place] [address] CBC W Auto Differential pane l (Bld)on 10-04-2024 Basophils (Bld) [#/Vol] 0 10*3/uL 0.0 - 0.2 10*3/uL [facility] Basophils/100 WBC (Bld) 0.5 % 0.0 - 2.0 % [facility] Eosinophils (Bld) [#/Vol] 0.1 10*3/uL 0.0 - 0.5 10*3/uL [facility] Eosinophils/100 WBC (Bld) 2 % 0.0 - 6.0 % [facility] Erythrocyte distribution width (RBC) [Ratio] 12.1 % 11.5 - 15.0 % [facility] Hematocrit (Bld) [Volume fraction] 45.7 % 35.0 - 47.0 % [facility] Hemoglobin (Bld) [Mass/Vol] 15.5 g/dL 11.7 - 16.0 g/dL [facility] Immature granulocytes (Bld) [#/Vol] 0 10*3/uL NINF - 0.1 10*3/uL [facility] Immature granulocytes/100 WBC (Bld) 0.2 % 0.0 - 2.0 % [facility] Interpretation and review of laboratory results Abnormal [facility] IPF 8 [facility] Lymphocytes (Bld) [#/Vol] 1.6 10*3/uL 1.0 - 4.3 10*3/uL [facility] Lymphocytes/100 WBC (Bld) 25.5 % 15.0 - 45.0 % [facility] MCH (RBC) [Entitic mass] 29.9 pg 26. 0 - 34.0 pg [facility] MCHC (RBC) [Mass/Vol] 33.9 % 30.5 - 36.0 % [facility] MCV (RBC) [Entitic vol] 88.2 fL 77.0 - 99.0 fL [facility] Monocytes (Bld) [#/Vol] 0.6 10*3/uL 0.0 - 0.9 10*3/uL [facility] Monocytes/100 WBC (Bld) 10 % 5.0 - 13.0 % [facility] Neutrophils (Bld) [#/Vol] 3.8 10*3/uL 1.8 - 7.5 10*3/uL [facility] Neutrophils/100 WBC (Bld) 61.8 % 38.0 - 82.0 % [facility] Nucleated RBC/100 WBC (Bld) [Ratio] 0 % [facility] Platelet mean volume (Bld) [Entitic vol] 11.9 fL 9.0 - 12.7 fL [facility] Platelets (Bld) [#/Vol] 111 10*3/uL Low 140 - 440 10*3/uL [facility] RBC (Bld) [#/Vol] 5.18 10*6/uL 3.80 - 5.2 0 10*6/uL [facility] WBC (Bld) [#/Vol] 6.1 10*3/uL 3.6 - 10.7 10*3/uL [facility] CBC WITH AUTO DIFFERENTIALon 10-04-2024 Basophils (Bld) [#/Vol] 0.0 10*3/uL Normal 0.0-0.2 [facility] Comment on above: Performed By: #### L [id number] ####Shop Supervisor: SADIE YNAG ([phone])[address] Basophils/100 WBC (Bld) 0.5 % Normal 0.0-2.0 S [facility] Comment on above: Performed By: #### L [id number] ####Shop Supervisor: SADIE YANG ([phone])[facility])[address] [place] [address] Eosinophils (Bld) [#/Vol] 0.1 10*3/uL Normal 0.0-0.5 [facility] Comment on above: Performed By: #### L [id number] ####Shop Supervisor: SADIE YANG ([phone])[facility])[address] [place] [address] Eosinophils/100 WBC (Bld) 2.0 % Normal 0.0-6.0 [facility] Comment on above: Performed By: #### L [id number] ####Shop Supervisor: SADIE YANG ([phone])[facility])[address] [place] [address] Erythrocyte distribution width (RBC) [Ratio] 12.1 % Normal 11.5-15.0 [facility] Comment on above: Performed By: #### L [id number] ####Shop Supervisor: SADIE YANG ([phone])[facility])[address] [place] [address] Hematocrit (Bld) [Volume fraction] 45.7 % Normal 35.0-47.0 [facility] Comment on above: Performed By: #### L [id number] ####Shop Supervisor: SADIE YANG ([phone])[facility])[address] [place] [address] Hemoglobin (Bld) [Mass/Vol] 15.5 g/dL Normal 11.7-16.0 [facility] Comment on above: Performed By: #### L [id number] ####Shop Supervisor: SADIE YANG ([phone])[facility])[address] [place] [address] IMMATURE GRANS % 0.2 % Normal 0.0-2.0 [facility] Comment on above: Performed By: #### L [id number] ####Shop Supervisor: SADIE YANG ([phone])[facility])[address] [place] [address] IMMATURE GRANS ABSOLUTE 0.0 10*3/uL Normal <0.1 [facility] Comment on above: Performed By: #### L [id number] ####Shop Supervisor: SADIE YANG ([phone])[facility])[address] [place] [address] [place] IPF 8 Normal [facility] Comment on above: Performed By: #### L [id number] ####Shop Supervisor: SADIE YANG ([phone])[facility])[address] [place] [address] Lymphocytes (Bld) [#/Vol] 1.6 10*3/uL Normal 1.0-4.3 [facility] Comment on above: Performed By: #### L [id number] ####Shop Supervisor: SADIE YANG ([phone])[facility])[address] [place] [address] Lymphocytes/100 WBC (Bld) 25.5 % Normal 15.0-45.0 [facility] Comment on above: Performed By: #### L [id number] ####Shop Supervisor: SADIE YANG ([phone])[facility])[address] [place] [address] MCH (RBC) [Entitic mass] 29.9 pg Normal 26.0-34.0 [facility] Comment on above: Performed By: #### L [id number] ####Shop Supervisor: SADIE YANG ([phone])[facility])[address] [place] [address] MCHC 33.9 % Normal 30.5-36.0 [facility] Comment on above: Performed By: #### L [id number] ####Shop Supervisor: SADIE YANG ([phone])[facility])[address] [place] [address] MCV (RBC) [Entitic vol] 88.2 fL Normal 77.0-99.0 S [facility] Comment on above: Performed By: #### L [id number] ####Shop Supervisor: SADIE YANG ([phone])[facility])[address] [place] [address] Monocytes (Bld) [#/Vol] 0.6 10*3/uL Normal 0.0-0.9 [facility] Comment on above: Performed By: #### L [id number] ####Shop Supervisor: SADIE YANG ([phone])[facility] ([facility])[address] [place] [address] [place] Monocytes/100 WBC (Bld) 10.0 % Normal 5.0-13.0 [facility] Comment on above: Performed By: #### L [id number] ####Shop Supervisor: SADIE YANG ([phone])[facility] ([facility])[address] [place] [address] [place] NEUTROPHILS ABSOLUTE 3.8 10*3/uL Normal 1.8-7.5 [facility] Comment on above: Performed By: #### L [id number] ####Shop Supervisor: SADIE YANG ([phone])[facility] ([facility])[address] [place] [address] Neutrophils/100 WBC (Bld) 61.8 % Normal 38.0-82.0 [facility] Comment on above: Performed By: #### L [id number] ####Shop Supervisor: SADIE YANG ([phone])[facility] ([facility])[address] [place] [address] NRBC 0.0 /100 WBCs Normal 0.0-2.0 [facility] [facility] Comment on above: Performed By: #### L [id number] ####Shop Supervisor: SADIE YANG ([phone])[facility] ([facility])[address] [place] [address] Platelet mean volume (Bld) [Entitic vol] 11.9 fL Normal 9.0-12.7 [facility] Comment on above: Performed By: #### L [id number] ####Shop Supervisor: SADIE YANG ([phone])[facility] ([facility])[address] [place] [address] [place] Platelets (Bld) [#/Vol] 111 10*3/uL Low 140-440 [facility] Comment on above: Performed By: #### L [id number] ####Shop Supervisor: SADIE YANG ([phone])[facility] ([facility])[address] RBC (Bld) [#/Vol] 5.18 10*6/uL Normal 3.80-5.20 [facility] Comment on above: Performed By: #### L [id number] ####Shop Supervisor: SADIE YANG ([phone])[facility])[address] [place] [address] WBC (Bld) [#/Vol] 6.1 10*3/uL Normal 3.6-10.7 [facility] Comment on above: Performed By: #### L [id number] ####Shop Supervisor: SADIE YANG ([phone])[facility])[address] [place] [address] COMPREHENSIVE METABOLIC PANE Armando 10-04-2024 Albumin [Mass/Vol] 4.4 g/dL Normal 3.5-5.0 [facility] Comment on above: Performed By: #### L AB46, [id number] ####Shop Supervisor: SADIE YANG ([phone])[facility] ([facility])[address] [place] [address] ALP [Catalytic activity/Vol] 85 U/L Normal 38-126 [facility] Comment on above: Performed By: #### L AB46, [id number] ####Shop Supervisor: SADIE YANG ([phone])[facility] ([facility])[address] [place] [address] ALT [Catalytic activity/Vol] 14 U/L Normal 0-34 [facility] Comment on above: Performed By: #### L AB46, [id number] ####Shop Supervisor: SADIE YANG ([phone])[facility] ([facility])[address] [place] [address] Anion gap [Moles/Vol] 9 mmol/L Normal 3-13 [facility] Comment on above: Performed By: #### L [id number], [id number] ####Shop Supervisor: SADIE YANG ([phone])[facility])[address] [place] [address] AST [Catalytic activity/Vol] 17 U/L Normal 15-46 [facility] Comment on above: Performed By: #### L AB46, [id number] ####Shop Supervisor: SADIE YANG ([phone])[facility])[address] [place] [address] Bilirubin [Mass/Vol] 0.7 mg/dL Normal 0.2-1.3 [facility] Comment on above: Performed By: #### L AB46, [id number] ####Shop Supervisor: SADIE YANG ([phone])[facility])[address] [place] [address] Calcium [Mass/Vol] 9.3 mg/dL Normal 8.4-10.4 [facility] Comment on above: Performed By: #### L AB46, [id number] ####Shop Supervisor: SADIE YANG ([phone])[facility] ([facility])[address] [place] [address] Chloride [Moles/Vol] 108 mmol/L High 98-107 [facility] Comment on above: Performed By: #### L AB46, [id number] ####Shop Supervisor: SADIE YANG ([phone])[facility] ([facility])[address] [place] [address] CO2 [Moles/Vol] 19 mmol/L Low 22-30 [facility] Comment on above: Performed By: #### L AB46, LAB17 ####Shop Supervisor: SADIE YANG ([phone])[facility])[address] [place] [address] Creatinine [Mass/Vol] 1.09 mg/dL High 0.52-1.04 [facility] Comment on above: Performed By: #### L AB46, LAB17 ####Shop Supervisor: SADEI YANG ([phone])[facility])[address] [place] [address] GLOMERULAR FILTRATION RATE ML/MIN/1.73 SQ M.PREDICTED 67.7 mL/min/1.73m*2 Normal >60.0 [facility] Comment on above: Result Comment: Calc ulation based on the Chronic Kidney Disease Epidemiology Collaboration (CKD-EPI) equation refit without adjustment for race Performed By: #### L 46, LAB17 ####Shop Supervisor: SADIE YANG ([phone])[facility] ([facility])[address] [place] [address] Glucose [Mass/Vol] 101 mg/dL High 70-100 [facility] Comment on above: Performed By: #### L AB46, LAB17 ####Shop Supervisor: SADIE YANG ([phone])[facility] ([facility])[address] [place] [address] Potassium [Moles/Vol] 4.2 mmol/L Normal 3.5-5.1 [facility] Comment on above: Performed By: #### Herminia CONTEH46, LAB17 ####Shop Supervisor: SADIE YANG ([phone])[facility])[address] [place] [address] Protein [Mass/Vol] 7.5 g/dL Normal 6.3-8.2 [facility] Comment on above: Performed By: #### Herminia CONTEH46, LAB17 ####Shop Supervisor: SADIE YANG ([phone])[facility])[address] [place] [address] Sodium [Moles/Vol] 136 mmol/L Normal 135-145 [facility] Comment on above: Performed By: #### L 46, LAB17 ####Shop Supervisor: SADIE YAGN ([phone])[facility])[address] [place] [address] [place] Urea nitrogen [Mass/Vol] 14 mg/dL Normal 7-17 [facility] Comment on above: Performed By: #### L AB46, LAB17 ####Shop Supervisor: SADIE YANG ([phone])[facility])[address] [place] [address] [place] Comprehensive metabolic 1998 panelon 10-04-2024 Albumin [Mass/Vol] 4.4 g/dL 3.5 - 5.0 g/dL [facility] ALP [Catalytic activity/Vol] 85 U/L 38 - 126 U/L [facility] ALT [Catalytic activity/Vol] 14 U/L 0 - 34 U/L [facility] Anion gap [Moles/Vol] 9 mmol/L 3 - 13 mmol/L [facility] AST [Catalytic activity/Vol] 17 U/L 15 - 46 U/L [facility] Bilirubin [Mass/Vol] 0.7 mg/dL 0.2 - 1 .3 mg/dL [facility] Calcium [Mass/Vol] 9.3 mg/dL 8.4 - 10. 4 mg/dL [facility] Chloride [Moles/Vol] 108 mmol/L High 98 - 10 7 mmol/L [facility] CO2 [Moles/Vol] 19 mmol/L Low 22 - 30 mmol/L [facility] Creatinine [Mass/Vol] 1.09 mg/dL High 0.52 - 1.04 mg/dL [facility] GFR/1.73 sq M.predicted (S/P/Bld) [Vol rate/Area] 67.7 mL/min - PINF [facility] Comment on above: Calculation based on the Chronic Kidney Disease Epidemiology Collaboration (CKD-EPI) equation refit without adjustment for race Glucose [Mass/Vol] 101 mg/dL High 70 - 100 mg/dL [facility] Interpretation and review of laboratory results Abnormal [facility] Potassium [Moles/Vol] 4.2 mmol/L 3.5 - 5.1 mmol/L [facility] Protein [Mass/Vol] 7.5 g/dL 6.3 - 8.2 g/dL [facility] Sodium [Moles/Vol] 136 mmol/L 135 - 145 mmol/L [facility] Urea nitrogen [Mass/Vol] 14 mg/dL 7 - 17 mg/d L [facility] DRUGS OF ABUSEon 10-04-2024 AMPHETAMINE SCREEN Negative Normal [facility] Comment on above: Performed By: #### L [id number] ####Shop Supervisor: SADIE YANG ([phone])[facility] ([facility])[address] [place] [address] BARBITURATES SCREEN Negative Normal [facility] Comment on above: Performed By: #### L [id number] ####Shop Supervisor: SADIE YANG ([phone])[facility] ([facility])[address] [place] [address] BENZODIAZEPINE SCREEN Negative Normal [facility] Comment on above: Performed By: #### L [id number] ####Shop Supervisor: SADIE YANG ([phone])[facility] ([facility])[address] [place] [address] COCAINE METAB. SCREEN Negative Normal [facility] Comment on above: Performed By: #### L [id number] ####Shop Supervisor: SADIE YANG ([phone])[facility] ([facility])[address] [place] [address] METHADONE SCREEN Negative Normal [facility] Comment on above: Performed By: #### L [id number] ####Shop Supervisor: SADIE YANG ([phone])[facility] [place] [address] OPIATES SCREEN Negative Normal [facility] Comment on above: Performed By: #### L [id number] ####Shop Supervisor: SADIE YANG ([phone])[facility] ([facility])[address] [place] [address] OXYCODONE SCREEN Negative Normal [facility] Comment on above: Performed By: #### L [id number] ####Shop Supervisor: SADIE YANG ([phone])[facility] [place] [address] PHENCYCLIDINE SCREEN Negative Normal [facility] Comment on above: Result [...] under separate order. Performed By: #### L [id number] ####Shop Supervisor: SADIE YANG ([phone])[facility] ([facility])[address] [place] [address] ED Nursing Noteon 10-04-2024 ED Nursing Note Pt was taken to room 46 and ready to be discharged Normal [facility] ED Nursing Note Pt was given the phone. Normal [facility] ED Nursing Note Pt up to the restroom. Normal [facility] ED Nursing Note Psych at bedside. Normal [facility] ED Nursing Note Pt up to the restroom. Normal [facility] ED Nursing Note Pt walked to restroom with no issues Normal [facility] ED Nursing Note PT. WAS CHANGED INTO HOSPITAL GOWN,SKIN ASSESSMENT COMPLETED BY NURSING. PT WANDED AND ALL BELONGINGS INVENTORIED AND LOCKED IN CABINET BY PROTECTIVE SERVICE. Pt has 1 bag. Normal [facility] ED Provider Noteon ED Provider Note [...] are mis-transcribed.) Ranulfo Elizondo MD Acute Care [facility] Ranulfo Elizondo MD 10/04/24 1237 [facility] ED Provider Note EMERGENCY DEPARTMENT ENCOUNTER Pt [...] Insecurity: Food Insecurity Present (09/12/2024) Received from [facility] Vital Sign Worried About Running Out of [...] time. Mental sta (more content not included)... Normal [facility] ED Provider Note Emergency Department Encounter [facility] EMERGENCY DEPT Patient: Mariella Christine : 1990 [...] [employer] Walt Mckenna MD 10/04/24 1119 Normal [facility] ED Provider Note I did not participate in the care of this patient. Vanesa White MD Resident 10/04/24 1513 Normal [facility] ETHANOLon 10-04-2024 ETHANOL IN SER/PLAS <0.010 Normal 0.000-0.010 [facility] Comment on above: Result Comment: LING Gregory COMMENTS: NOTE: This result is for medical treatment only. Analysis performed using non-forensic procedures. Performed By: #### L AB46, LAB17 ####Shop Supervisor: SADIE YANG ([phone])[facility] ([facility])[address] [place] [address] [place] Ethanol (Bld) [Mass/Vol]on 12-04-2023 Ethanol [Mass/Vol] g/dL 0.000 - 0.010 g/dL [facility] Interpretation and review of laboratory results Normal [facility] HCG, RAPID SERUMon HCG, RAPID SCREEN Not detected Normal None Detected [facility] Comment on above: Performed By: #### L [id number] ####Shop Supervisor: SADIE YANG ([phone])[facility])[address] [place] [address] [facility] Laboratory - Drug toxicology on 10-04-2024 Amphetamines Screen method >1000 ng/mL Ql (U) Negative [facility] Barbiturates Screen method >200 ng/mL Ql (U) [facility] Benzod[facility]ines Ql (U) Negative [facility] Methadone Screen Ql (U) Negative S [facility] Opiates Screen Ql (U) Negative [facility] oxyCODONE Ql (U) Negative [facility] Phencyclidine Ql (U) Negative [facility] Laboratory - Microbiology an d Antimicrobial susceptibilityOrdered By: Aubree Guevara on 10-04-2024 SARS-CoV-2 (COVID-19) Ag IA.rapid Ql (Resp) Negative Negative [facility] Comment on above: A negative result do es not rule out the possibility of SARS-CoV-2 infection. NAAT-based methods should be considered for symptomatic patients presenting greater than seven days after onset of symptoms. Method: Lateral flow immunoassay. Fact sheets for healthcare providers and patients can be found at the following sites: https://www.fda.gov/media/824114/download https://www.fda.gov/media/742788/download No Panel Informationon 10-04 COCAINE METAB. SCREEN Negative [facility] The expected value for all of the [...] is needed, request confirmation under separate order. [facility] No Panel InformationOrdered By: Nicolle Villanueva on 10-04-2024 HCG, RAPID SCREEN Not detected None Detected [facility] Progress Noteon 10-04-2024 Progress Note ---- Attestation [...] and resiliency and can continue this at [facility]. She is agreeable to return for worsening symptoms and call [facility] to schedule with their IOP Monday. Vanesa Carrillo MD ---- Department of Clinical Applications Manager Emergency Psychiatric Evaluation CHIEF COMPLAINT: Chief Complaint [...] that she saw her outpatient therapist through [employer] yesterday and they made her promise that [...] psychiatrist, has a therapist, and has a foster care case manager through [employer]. I called [facility] to speak with her therapist. Her therapist was unavailable. I spoke with the golf sales associate and left a voicemail for her therapist to set her up with [facility] PHP/IOP. REVIEW OF SYSTEMS: Medical Review Of [...] is currently receivi (more content not included)... Normal [facility] SARS-COV-2 ANTIGENon 024 SARS-COV-2 ANTIGEN SARS-COV-2 ANTIGEN -BINAX Reference Negative Negative A negative result does not rule out the possibility of SARS-CoV-2 infection. NAAT-based methods should be considered for symptomatic patients presenting greater than seven days after onset of symptoms. Method: Lateral flow immunoassay. Fact sheets for healthcare providers and patients can be found at the following sites: https://www.fda.gov /media/995112/downl oad https://www.fda.gov /media/966548/downl oad [facility] Comment on above: Performed By: #### L [id number] #### Shop Supervisor: SADIE YANG ([phone]) [facility] ([facility]) [address] [place] [address] SARS-CoV-2 (COVID-19) Ag IA. rapid Ql (Resp)Ordered By: Aubree Guevara on 10-04-2024 Interpretation and review of laboratory results Normal [facility] Laboratory - Microbiology an d Antimicrobial susceptibilityOrdered By: Compa Ventura on 08-13-2024 SARS-CoV-2 (COVID-19) RNA YURIDIA+non-probe Ql (Nph) Negative Negative [facility] No Panel InformationOrdered By: Compa Ventura on 08-13-2024 Interpretation and review of laboratory results Normal [facility] Office Visiton 08-13-2024 Follow-up visit [id number] Mariella Christine 1990 F Date Provider Department Center 08/13/2024 [facility] None No family history on file Level of Service:10454 [place] OFFICE/OUTPATIENT ESTABLISHED LOW MDM 20 MIN Reason for Visit and Comments: Cough [28] - Barking cough that she's not sure when started. Think it's related to her smoking. Ibuprofen for inflammation. Normal [facility] PATINSon 08-13-2024 PATINS Thank you for coming to [facility] for your medical care! Normal [facility] Progress Noteon 08-13-2024 Progress Note Subjective: [...] arthralgia - (more content not included)... Normal [facility] BASIC METABOLIC PANELon 08-0 Anion gap [Moles/Vol] 7 mmol/L Normal 3-13 [facility] Comment on above: Performed By: #### L AB15, [id number] ####Shop Supervisor: SADIE YANG ([phone])[facility] ([facility] [place] [address] Calcium [Mass/Vol] 9.2 mg/dL Normal 8.4-10.4 [facility] Comment on above: Performed By: #### L AB15, [id number] ####Shop Supervisor: SADIE YANG ([phone])[facility] [place] [address] [place] Chloride [Moles/Vol] 105 mmol/L Normal 98-107 [facility] Comment on above: Performed By: #### L AB15, [id number] ####Shop Supervisor: SADIE YANG ([phone])[facility] [place] [address] [place] CO2 [Moles/Vol] 25 mmol/L Normal 22-30 [facility] Comment on above: Performed By: #### Herminia RICHARD, [id number] ####Shop Supervisor: SADIE YANG ([phone])[facility] ([facility])[address] [place] [address] Creatinine [Mass/Vol] 1.17 mg/dL High 0.52-1.04 [facility] Comment on above: Performed By: #### Herminia RICHARD, [id number] ####Shop Supervisor: SADIE YANG ([phone])[facility] ([facility])[address] [place] [address] GLOMERULAR FILTRATION RATE ML/MIN/1.73 SQ M.PREDICTED 62.1 mL/min/1.73m*2 Normal >60.0 [facility] Comment on above: Result Comment: Calc ulation based on the Chronic Kidney Disease Epidemiology Collaboration (CKD-EPI) equation refit without adjustment for race Performed By: #### L HILARY, [id number] ####Shop Supervisor: SADIE YANG ([phone])[facility] ([facility])[address] [place] [address] [place] Glucose [Mass/Vol] 88 mg/dL Normal 70-100 [facility] Comment on above: Performed By: #### L AB15, [id number] ####Shop Supervisor: SADIE YANG ([phone])[facility])[address] [place] [address] Potassium [Moles/Vol] 3.7 mmol/L Normal 3.5-5.1 [facility] Comment on above: Performed By: #### L AB15, [id number] ####Shop Supervisor: SADIE YANG ([phone])[facility] ([facility])[address] [place] [address] Sodium [Moles/Vol] 136 mmol/L Normal 135-145 [facility] Comment on above: Performed By: #### L AB15, [id number] ####Shop Supervisor: SADIE YANG ([phone])[facility] ([facility])[address] [place] [address] Urea nitrogen [Mass/Vol] 15 mg/dL Normal 7-17 [facility] Comment on above: Performed By: #### L AB15, [id number] ####Shop Supervisor: SADIE YANG ([phone])[address] Basic metabolic 1998 panelon 07-02-2024 Anion gap [Moles/Vol] 7 mmol/L 3 - 13 mmol/L [facility] Calcium [Mass/Vol] 9.2 mg/dL 8.4 - 10. 4 mg/dL [facility] Chloride [Moles/Vol] 105 mmol/L 98 - 10 7 mmol/L [facility] CO2 [Moles/Vol] 25 mmol/L 22 - 30 mmol/L [facility] Creatinine [Mass/Vol] 1.17 mg/dL High 0.52 - 1.04 mg/dL [facility] GFR/1.73 sq M.predicted (S/P/Bld) [Vol rate/Area] 62.1 mL/min - PINF [facility] Comment on above: Calculation based on the Chronic Kidney Disease Epidemiology Collaboration (CKD-EPI) equation refit without adjustment for race Glucose [Mass/Vol] 88 mg/dL 70 - 100 mg/dL [facility] Interpretation and review of laboratory results Abnormal [facility] Potassium [Moles/Vol] 3.7 mmol/L 3.5 - 5.1 mmol/L [facility] Sodium [Moles/Vol] 136 mmol/L 135 - 145 mmol/L [facility] Urea nitrogen [Mass/Vol] 15 mg/dL 7 - 17 mg/d L [facility] CBC W Auto Differential pane l (Bld)on 07-02-2024 Basophils (Bld) [#/Vol] 0.1 10*3/uL 0.0 - 0.2 10*3/uL [facility] Basophils/100 WBC (Bld) 0.9 % 0.0 - 2.0 % [facility] Eosinophils (Bld) [#/Vol] 0.1 10*3/uL 0.0 - 0.5 10*3/uL [facility] Eosinophils/100 WBC (Bld) 1.9 % 0.0 - 6.0 % [facility] Erythrocyte distribution width (RBC) [Ratio] 12.0 % 11.5 - 15.0 % [facility] Hematocrit (Bld) [Volume fraction] 46.8 % 35.0 - 47.0 % [facility] Hemoglobin (Bld) [Mass/Vol] 15.9 g/dL 11.7 - 16.0 g/dL [facility] Immature granulocytes (Bld) [#/Vol] 0.0 10*3/uL NINF - 0.1 10*3/uL [facility] Immature granulocytes/100 WBC (Bld) 0.2 % 0.0 - 2.0 % [facility] Interpretation and review of laboratory results Abnormal [facility] IPF 11 [facility] Lymphocytes (Bld) [#/Vol] 1.8 10*3/uL 1.0 - 4.3 10*3/uL [facility] Lymphocytes/100 WBC (Bld) 31.5 % 15.0 - 45.0 % [facility] MCH (RBC) [Entitic mass] 29.9 pg 26. 0 - 34.0 pg [facility] MCHC (RBC) [Mass/Vol] 34.0 % 30.5 - 36.0 % [facility] MCV (RBC) [Entitic vol] 88.0 fL 77.0 - 99.0 fL [facility] Monocytes (Bld) [#/Vol] 0.6 10*3/uL 0.0 - 0.9 10*3/uL [facility] Monocytes/100 WBC (Bld) 10.5 % 5.0 - 13.0 % [facility] Neutrophils (Bld) [#/Vol] 3.1 10*3/uL 1.8 - 7.5 10*3/uL [facility] Neutrophils/100 WBC (Bld) 55.0 % 38.0 - 82.0 % [facility] Nucleated RBC/100 WBC (Bld) [Ratio] 0.0 % [facility] Platelet mean volume (Bld) [Entitic vol] 12.0 fL 9.0 - 12.7 fL [facility] Platelets (Bld) [#/Vol] 113 10*3/uL Low 140 - 440 10*3/uL [facility] RBC (Bld) [#/Vol] 5.32 10*6/uL High 3.80 - 5.2 0 10*6/uL [facility] WBC (Bld) [#/Vol] 5.7 10*3/uL 3.6 - 10.7 10*3/uL [facility] CBC WITH AUTO DIFFERENTIALon 07-02-2024 Basophils (Bld) [#/Vol] 0.1 10*3/uL Normal 0.0-0.2 [facility] Comment on above: Performed By: #### L [id number] ####Shop Supervisor: SADIE YANG ([phone])[facility])[address] [place] [address] Basophils/100 WBC (Bld) 0.9 % Normal 0.0-2.0 [facility] Comment on above: Performed By: #### L [id number] ####Shop Supervisor: SADIE YANG ([phone])[facility])[address] [place] [address] Eosinophils (Bld) [#/Vol] 0.1 10*3/uL Normal 0.0-0.5 [facility] Comment on above: Performed By: #### L [id number] ####Shop Supervisor: SADIE YANG ([phone])[facility])[address] [place] [address] Eosinophils/100 WBC (Bld) 1.9 % Normal 0.0-6.0 [facility] Comment on above: Performed By: #### L [id number] ####Shop Supervisor: SADIE YANG ([phone])[facility])[address] [place] [address] Erythrocyte distribution width (RBC) [Ratio] 12.0 % Normal 11.5-15.0 [facility] Comment on above: Performed By: #### L [id number] ####Shop Supervisor: SADIE YANG ([phone])[address] Hematocrit (Bld) [Volume fraction] 46.8 % Normal 35.0-47.0 [facility] Comment on above: Performed By: #### L [id number] ####Shop Supervisor: SADIE YANG ([phone])[facility])[address] [place] [address] Hemoglobin (Bld) [Mass/Vol] 15.9 g/dL Normal 11.7-16.0 [facility] Comment on above: Performed By: #### L [id number] ####Shop Supervisor: SADIE YANG ([phone])[address] IMMATURE GRANS % 0.2 % Normal 0.0-2.0 [facility] Comment on above: Performed By: #### L [id number] ####Shop Supervisor: SADIE YANG ([phone])[address] IMMATURE GRANS ABSOLUTE 0.0 10*3/uL Normal <0.1 [facility] Comment on above: Performed By: #### L [id number] ####Shop Supervisor: SADIE YANG ([phone])[address] IPF 11 Normal [facility] Comment on above: Performed By: #### L [id number] ####Shop Supervisor: SADIE [phone])[address] Lymphocytes (Bld) [#/Vol] 1.8 10*3/uL Normal 1.0-4.3 [facility] Comment on above: Performed By: #### L [id number] ####Shop Supervisor: SADIE [phone])[facility])[address] [place] [address] Lymphocytes/100 WBC (Bld) 31.5 % Normal 15.0-45.0 [facility] Comment on above: Performed By: #### L [id number] ####Shop Supervisor: SADIE YANG ([phone])[facility])[address] [place] [address] MCH (RBC) [Entitic mass] 29.9 pg Normal 26.0-34.0 [facility] Comment on above: Performed By: #### L [id number] ####Shop Supervisor: SADIE YANG ([phone])[facility])[address] [place] [address] MCHC 34.0 % Normal 30.5-36.0 [facility] Comment on above: Performed By: #### L [id number] ####Shop Supervisor: SADIE YANG ([phone])[facility])[address] [place] [address] MCV (RBC) [Entitic vol] 88.0 fL Normal 77.0-99.0 S [facility] Comment on above: Performed By: #### L [id number] ####Shop Supervisor: SADIE YANG ([phone])[facility])[address] [place] [address] Monocytes (Bld) [#/Vol] 0.6 10*3/uL Normal 0.0-0.9 [facility] Comment on above: Performed By: #### L [id number] ####Shop Supervisor: SADIE YANG ([phone])[facility])[address] [place] [address] Monocytes/100 WBC (Bld) 10.5 % Normal 5.0-13.0 S [facility] Comment on above: Performed By: #### L [id number] ####Shop Supervisor: SADIE YANG ([phone])[facility])[address] [place] [address] NEUTROPHILS ABSOLUTE 3.1 10*3/uL Normal 1.8-7.5 [facility] Comment on above: Performed By: #### L [id number] ####Shop Supervisor: SADIE YANG ([phone])[facility] ([facility])[address] [place] [address] Neutrophils/100 WBC (Bld) 55.0 % Normal 38.0-82.0 [facility] Comment on above: Performed By: #### L [id number] ####Shop Supervisor: SADIE YANG ([phone])[facility] ([facility])[address] [place] [address] NRBC 0.0 /100 WBCs Normal 0.0-2.0 [facility] Comment on above: Performed By: #### L [id number] ####Shop Supervisor: SADIE YANG ([phone])[facility] ([facility])[address] [place] [address] Platelet mean volume (Bld) [Entitic vol] 12.0 fL Normal 9.0-12.7 [facility] Comment on above: Performed By: #### L [id number] ####Shop Supervisor: SADEI YANG ([phone])[facility] ([facility])[address] [place] [address] [place] Platelets (Bld) [#/Vol] 113 10*3/uL Low 140-440 [facility] Comment on above: Performed By: #### L [id number] ####Shop Supervisor: SADIE YANG ([phone])[facility] ([facility])[address] [place] [address] [place] RBC (Bld) [#/Vol] 5.32 10*6/uL High 3.80-5.20 [facility] Comment on above: Performed By: #### L [id number] ####Shop Supervisor: SADIE YANG ([phone])[facility] ([facility])[address] [place] [address] [place] WBC (Bld) [#/Vol] 5.7 10*3/uL Normal 3.6-10.7 [facility] Comment on above: Performed By: #### L [id number] ####Shop Supervisor: SADIE YANG ([phone])[facility] ([address] ECG 12-LEADon 07-02-2024 ECG 12-LEAD IMPRESSION: Sinus rhythm with normal rate, intervals and QRS duration. No acute ischemic changes. 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 States I have a DR apt at 3. Pt has received PO meds. Theresa Parkinson LPN 07/02/24 1314 [facility] ED Nursing Note This nurse attempted for IV line x2. Nurse was unsuccessful. Another nurse going to attempt line. Theresa Parkinson LPN 07/02/24 1312 [facility] ED Provider Noteon ED Provider Note Emergency [...] [employer] Vanesa Saldivar, DO 07/02/24 1207 [facility] ED Provider Note EMERGENCY DEPARTMENT ENCOUNTER Pt [...] in upper or lower extremity. Finger-nose and tkmu-it-swgx are normal. No truncal instability. No visual field deficits. No obvious neurologic deficits. 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 Moves all 4 extremities spontaneously. DIAGNOSTIC RESULTS Procedures/EKG: EKG was reviewed by myself. Physician EKG interpretation can be found in [facility] RADIOLOGY (Per Emergency Phy (more content not included)... Normal [facility] Laboratory - Chemistry and C hemistry - challengeon 07-02-2024 Troponin I.cardiac [Mass/Vol] ng/mL NINF - 0.034 ng/mL [facility] No Panel Informationon 07-02 P [place] 31 degrees [facility] MI Interval 138 ms [facility] QRS [place] 43 degrees [facility] QRSD Interval 84 ms [facility] QT Interval 348 ms [facility] QTC Interval 412 ms [facility] T Wave [place] 32 degrees [facility] Sinus rhythm with normal rate, intervals and QRS duration. No acute ischemic changes. Anterior W waves, old Similar to previous EKG Electronically Signed On 07-02-2024 13:49:11 EDT by Vanesa Rene, - 07/02/2024 IMPRESSION: Sinus rhythm with normal rate, intervals and QRS duration. No acute ischemic changes. Anterior W waves, old Similar to previous EKG Electronically Signed On 07-02-2024 13:49:11 EDT by Vanesa Saldivar [facility] TROPONIN Ion 07-02-2024 Troponin I.cardiac [Mass/Vol] ng/mL Normal <0.034 [facility] Comment on above: Result Comment: LING Gregory COMMENTS: Patients with high levels of Biotin oral intake (ie >5 mg/day) may have falsely decreased Troponin levels. Performed By: #### L AB15, [id number] ####Shop Supervisor: SADIE YANG ([phone])[facility] ([facility])[address] [place] [address] Troponin I.cardiac [Mass/Vol ]on 07-02-2024 Interpretation and review of laboratory results Normal [facility] Patients with high levels of Biotin oral intake (ie >5 mg/day) may have falsely decreased Troponin levels. [facility] Vital signson 07-02-2024 Heart rate 84 /min bpm [facility] Mempile XR Chest Single viewon 07-02 No acute abnormality Report Dictated on Electronically Signed By: Rodríguez Kaplan MD Electronically Signed Date/Time: 07/02/2024 12:47 PM EDT [facility] Patient Name: MARIELLA CHRISTINE : 1990 Exam Date/Time: 07/02/2024 12:48 Procedure: XR CHEST 1 VIEW Ordering Provider: SERRANO BLAKE Reason For Exam: CHEST PAIN PORTABLE CHEST CLINICAL INDICATION: Chest pain TECHNIQUE: Portable AP COMPARISON: CT from 06/22/2024 FINDINGS: The heart and mediastinum are normal. The lungs are clear. Costophrenic angles are sharp. The osseous structures are unremarkable. [facility] Rodríguez Kaplan MD - 07/02/2024 Patient Name: [...] Electronically Signed Date/Time: 07/02/2024 12:47 PM EDT [facility] Radiology Study observation (narrative) [facility] XR Chest Single viewOrdered By: Rodríguez Kaplan on 07-02-2024 [facility] Work Phone: BASIC METABOLIC PANELon 05-28 Anion gap [Moles/Vol] 9 mmol/L Normal 3-13 [facility] Comment on above: Performed By: #### L [id number], [id number], [id number], LAB15 ####Shop Supervisor: SADIE YANG ([phone])[facility] ([facility])[address] [place] [address] Calcium [Mass/Vol] 9.4 mg/dL Normal 8.4-10.4 [facility] Comment on above: Performed By: #### L AB106, [id number], [id number], LAB15 ####Shop Supervisor: SADIE YANG ([phone])[facility] ([facility])[address] [place] [address] [place] Chloride [Moles/Vol] 106 mmol/L Normal 98-107 [facility] Comment on above: Performed By: #### L AB106, [id number], [id number], LAB15 ####Shop Supervisor: SADIE YANG ([phone])[facility] ([facility])[address] [place] [address] [place] CO2 [Moles/Vol] 21 mmol/L Low 22-30 [facility] Comment on above: Performed By: #### L AB106, [id number], [id number], LAB15 ####Shop Supervisor: SADIE YANG ([phone])[facility])[address] [place] [address] Creatinine [Mass/Vol] 1.10 mg/dL High 0.52-1.04 [facility] Comment on above: Performed By: #### L AB106, [id number], [id number], LAB15 ####Shop Supervisor: SADIE YANG ([phone])[facility])[address] [place] [address] GLOMERULAR FILTRATION RATE ML/MIN/1.73 SQ M.PREDICTED 66.9 mL/min/1.73m*2 Normal >60.0 [facility] Comment on above: Result Comment: Calc ulation based on the Chronic Kidney Disease Epidemiology Collaboration (CKD-EPI) equation refit without adjustment for race Performed By: #### L AB106, [id number], [id number], LAB15 ####Shop Supervisor: SADIE YANG ([phone])[facility])[address] [place] [address] Glucose [Mass/Vol] 92 mg/dL Normal 70-100 [facility] Comment on above: Performed By: #### L AB106, [id number], [id number], LAB15 ####Shop Supervisor: SADIE YANG ([phone])[facility])[address] [place] [address] Potassium [Moles/Vol] 4.1 mmol/L Normal 3.5-5.1 [facility] Comment on above: Performed By: #### L AB106, [id number], [id number], LAB15 ####Shop Supervisor: SADIE YANG ([phone])[facility])[address] [place] [address] [place] Sodium [Moles/Vol] 137 mmol/L Normal 135-145 [facility] Comment on above: Performed By: #### L AB106, [id number], [id number], LAB15 ####Shop Supervisor: SADIE YANG ([phone])[facility])[address] [place] [address] [place] Urea nitrogen [Mass/Vol] 13 mg/dL Normal 7-17 [facility] Comment on above: Performed By: #### L AB106, [id number], [id number], LAB15 ####Shop Supervisor: SADIE YANG ([phone])[facility] ([address] Basic metabolic 1998 panelon 06-22-2024 Anion gap [Moles/Vol] 9 mmol/L 3 - 13 mmol/L [facility] Calcium [Mass/Vol] 9.4 mg/dL 8.4 - 10. 4 mg/dL [facility] Chloride [Moles/Vol] 106 mmol/L 98 - 10 7 mmol/L [facility] CO2 [Moles/Vol] 21 mmol/L Low 22 - 30 mmol/L [facility] Creatinine [Mass/Vol] 1.10 mg/dL High 0.52 - 1.04 mg/dL [facility] GFR/1.73 sq M.predicted MDRD (S/P/Bld) [Vol rate/Area] 66.9 mL/min/{1.73_m2} - PINF [facility] Comment on above: Calculation based on the Chronic Kidney Disease Epidemiology Collaboration (CKD-EPI) equation refit without adjustment for race Glucose [Mass/Vol] 92 mg/dL 70 - 100 mg/dL [facility] Interpretation and review of laboratory results Abnormal [facility] Potassium [Moles/Vol] 4.1 mmol/L 3.5 - 5.1 mmol/L [facility] Sodium [Moles/Vol] 137 mmol/L 135 - 145 mmol/L [facility] Urea nitrogen [Mass/Vol] 13 mg/dL 7 - 17 mg/d L [facility] CBC W Auto Differential pane l (Bld)on 06-22-2024 Basophils (Bld) [#/Vol] 0.0 10*3/uL 0.0 - 0.2 10*3/uL [facility] Basophils/100 WBC (Bld) 0.6 % 0.0 - 2.0 % [facility] Eosinophils (Bld) [#/Vol] 0.2 10*3/uL 0.0 - 0.5 10*3/uL [facility] Eosinophils/100 WBC (Bld) 2.6 % 0.0 - 6.0 % [facility] Erythrocyte distribution width (RBC) [Ratio] 12.2 % 11.5 - 15.0 % [facility] Hematocrit (Bld) [Volume fraction] 44.5 % 35.0 - 47.0 % [facility] Hemoglobin (Bld) [Mass/Vol] 14.9 g/dL 11.7 - 16.0 g/dL [facility] Immature granulocytes (Bld) [#/Vol] 0.0 10*3/uL NINF - 0.1 10*3/uL [facility] Immature granulocytes/100 WBC (Bld) 0.1 % 0.0 - 2.0 % [facility] Interpretation and review of laboratory results Abnormal [facility] Lymphocytes (Bld) [#/Vol] 2.0 10*3/uL 1.0 - 4.3 10*3/uL [facility] Lymphocytes/100 WBC (Bld) 29.0 % 15.0 - 45.0 % [facility] MCH (RBC) [Entitic mass] 29.6 pg 26. 0 - 34.0 pg [facility] MCHC (RBC) [Mass/Vol] 33.5 % 30.5 - 36.0 % [facility] MCV (RBC) [Entitic vol] 88.3 fL 77.0 - 99.0 fL [facility] Monocytes (Bld) [#/Vol] 0.6 10*3/uL 0.0 - 0.9 10*3/uL [facility] Monocytes/100 WBC (Bld) 9.0 % 5.0 - 13.0 % [facility] Neutrophils (Bld) [#/Vol] 4.1 10*3/uL 1.8 - 7.5 10*3/uL [facility] Neutrophils/100 WBC (Bld) 58.7 % 38.0 - 82.0 % [facility] Nucleated RBC/100 WBC (Bld) [Ratio] 0.0 % [facility] Platelet mean volume (Bld) [Entitic vol] 12.3 fL 9.0 - 12.7 fL [facility] Platelets (Bld) [#/Vol] 123 10*3/uL Low 140 - 440 10*3/uL [facility] RBC (Bld) [#/Vol] 5.04 10*6/uL 3.80 - 5.2 0 10*6/uL [facility] WBC (Bld) [#/Vol] 7.0 10*3/uL 3.6 - 10.7 10*3/uL [facility] CBC WITH AUTO DIFFERENTIALon 06-22-2024 Basophils (Bld) [#/Vol] 0.0 10*3/uL Normal 0.0-0.2 [facility] Comment on above: Performed By: #### L [id number] ####Shop Supervisor: SADIE YANG ([phone])[facility])[address] [place] [address] Basophils/100 WBC (Bld) 0.6 % Normal 0.0-2.0 S [facility] Comment on above: Performed By: #### L [id number] ####Shop Supervisor: SADIE YANG ([phone])[facility])[address] [place] [address] Eosinophils (Bld) [#/Vol] 0.2 10*3/uL Normal 0.0-0.5 [facility] Comment on above: Performed By: #### L [id number] ####Shop Supervisor: SADIE YANG ([phone])[facility] ([facility])[address] [place] [address] Eosinophils/100 WBC (Bld) 2.6 % Normal 0.0-6.0 [facility] Comment on above: Performed By: #### L [id number] ####Shop Supervisor: SADIE YANG ([phone])[facility])[address] [place] [address] Erythrocyte distribution width (RBC) [Ratio] 12.2 % Normal 11.5-15.0 [facility] Comment on above: Performed By: #### L [id number] ####Shop Supervisor: SADIE YANG ([phone])[facility])[address] [place] [address] Hematocrit (Bld) [Volume fraction] 44.5 % Normal 35.0-47.0 [facility] Comment on above: Performed By: #### L [id number] ####Shop Supervisor: SADIE [phone])[facility] [address] Hemoglobin (Bld) [Mass/Vol] 14.9 g/dL Normal 11.7-16.0 [facility] Comment on above: Performed By: #### L [id number] ####Shop Supervisor: SADIE YANG ([phone])[facility])[address] [place] [address] IMMATURE GRANS % 0.1 % Normal 0.0-2.0 [facility] Comment on above: Performed By: #### L [id number] ####Shop Supervisor: SADIE YANG ([phone])[facility])[address] [place] [address] IMMATURE GRANS ABSOLUTE 0.0 10*3/uL Normal <0.1 [facility] Comment on above: Performed By: #### L [id number] ####Shop Supervisor: SADIE YANG ([phone])[facility])[address] [place] [address] Lymphocytes (Bld) [#/Vol] 2.0 10*3/uL Normal 1.0-4.3 [facility] Comment on above: Performed By: #### L [id number] ####Shop Supervisor: SADIE YANG ([phone])[address] Lymphocytes/100 WBC (Bld) 29.0 % Normal 15.0-45.0 [facility] Comment on above: Performed By: #### L [id number] ####Shop Supervisor: SADIE YANG ([phone])[facility])[address] [place] [address] MCH (RBC) [Entitic mass] 29.6 pg Normal 26.0-34.0 [facility] Comment on above: Performed By: #### L [id number] ####Shop Supervisor: SADIE YANG ([phone])[facility])[address] [place] [address] MCHC 33.5 % Normal 30.5-36.0 [facility] Comment on above: Performed By: #### L [id number] ####Shop Supervisor: SADIE YANG ([phone])[facility] ([facility])[address] [place] [address] MCV (RBC) [Entitic vol] 88.3 fL Normal 77.0-99.0 S [facility] Comment on above: Performed By: #### L [id number] ####Shop Supervisor: SADIE YANG ([phone])[facility] ([facility])[address] [place] [address] Monocytes (Bld) [#/Vol] 0.6 10*3/uL Normal 0.0-0.9 [facility] Comment on above: Performed By: #### L [id number] ####Shop Supervisor: SADIE YANG ([phone])[facility])[address] [place] [address] Monocytes/100 WBC (Bld) 9.0 % Normal 5.0-13.0 S [facility] Comment on above: Performed By: #### L [id number] ####Shop Supervisor: SADIE YANG ([phone])[facility] ([facility])[address] [place] [address] NEUTROPHILS ABSOLUTE 4.1 10*3/uL Normal 1.8-7.5 [facility] Comment on above: Performed By: #### L [id number] ####Shop Supervisor: SADIE YANG ([phone])[facility])[address] [place] [address] Neutrophils/100 WBC (Bld) 58.7 % Normal 38.0-82.0 [facility] Comment on above: Performed By: #### L [id number] ####Shop Supervisor: SADIE YANG ([phone])[facility])[address] [place] [address] NRBC 0.0 /100 WBCs Normal 0.0-2.0 [facility] Comment on above: Performed By: #### L [id number] ####Shop Supervisor: SADIE YANG ([phone])[facility] ([facility])[address] [place] [address] Platelet mean volume (Bld) [Entitic vol] 12.3 fL Normal 9.0-12.7 [facility] Comment on above: Performed By: #### L [id number] ####Shop Supervisor: SADIE YANG ([phone])[facility])[address] [place] [address] Platelets (Bld) [#/Vol] 123 10*3/uL Low 140-440 [facility] Comment on above: Performed By: #### L [id number] ####Shop Supervisor: SADIE YANG ([phone])[facility])[address] [place] [address] RBC (Bld) [#/Vol] 5.04 10*6/uL Normal 3.80-5.20 [facility] Comment on above: Performed By: #### L [id number] ####Shop Supervisor: SADIE YANG ([phone])[facility] ([facility])[address] [place] [address] WBC (Bld) [#/Vol] 7.0 10*3/uL Normal 3.6-10.7 [facility] Comment on above: Performed By: #### L [id number] ####Shop Supervisor: SADIE YANG ([phone])[facility])[address] [place] [address] CT CHEST ANGIOGRAM W AND/OR WO IV CONTRASTon 06-22-2024 CT CHEST ANGIOGRAM W AND/OR WO IV CONTRAST Patient Name: MARIELLA CHRISTINE : 1990 Exam Date/Time: 06/22/2024 18:34 Procedure: CT CHEST [...] up blood. h/o PE. PNA? PE? Normal [facility] CTA Chest vessels WO and W c ontrast Sherman 06-22-2024 Impression: No evidence of pulmonary embolus or other acute finding of the chest. Report Dictated on Electronically Signed By: Tera Blackmon MD Electronically Signed Date/Time: 06/22/2024 6:39 PM EDT [facility] Patient Name: [facility]IELLA CHRISTINE : 1990 [id number] Exam Date/Time: 06/22/2024 18:34 Procedure: CT CHEST [...] upper abdomen. Osseous structures: Normal osseous structures. [facility] Tera Blackmon MD - 06/22/2024 Patient Name: MARIELLA CHRISTINE : 1990 [id number] Exam Date/Time: 06/22/2024 18:34 Procedure: CT CHEST [...] Electronically Signed Date/Time: 06/22/2024 6:39 PM EDT [facility] Radiology Study observation (narrative) [facility] CTA Chest vessels WO and W c ontrast IVOrdered By: Tera Blackmon on 06-22-2024 [facility] Work Phone: ECG 12-LEADon 06-22-2024 ECG 12-LEAD IMPRESSION: Sinus rhythm with normal rate, intervals and QRS duration. No acute ischemic changes. Electronically Signed On 06-22-2024 20:18:53 EDT by Vanesa Saldivar [facility] ED Nursing Noteon 06-22-2024 ED Nursing Note IV removed from left forearm. Shelly Bennett MA 06/22/242001 Shelly Bennett MA 06/22/242002 [facility] ED Nursing Note Dr. Silvestre notified that patient is leaving. Kylie Moore RN 06/22/242001 [facility] ED Nursing Note Patient came to RN at window and said she would like to leave since she got all her results in her mychart. Kylie Moore RN 06/22/242000 [facility] ED Provider Noteon ED Provider Note Emergency Department Encounter [facility] EMERGENCY DEPT Patient: Mariella Christine : 1990 Date of Evaluation: 06/22/2024 ED Provider: Pravin Silvestre MD I saw the patient as [...] take a deep breath, hurts to rotate [id number]-zd-[id number], hurts to cough. Has a cough and [...] able to answer questions and follow commands manager of clinical II-XII normal Normal 5/5 strength and normal [...] to contact the dictating provider for clarification) Pravin Silvestre MD [employer] Pravin Silvestre MD 06/22/24 1432 Normal [employer] [facility] HCG QUANTITATIVE BLOODon HCG QUANTITATIVE <2 Normal Females <=5 [facility] Comment on above: Result Comment: LING [...] trophoblastic disease. Performed By: #### L AB106, [id number], [id number], LAB15 ####Shop Supervisor: SADIE YANG ([phone])[facility] ([facility] Laboratory - Chemistry and C hemistry - challengeon 06-22-2024 HCG.beta subunit Qn Females <=5 mIU/mL [facility] Troponin I.cardiac [Mass/Vol] ng/mL NINF - 0.034 ng/mL [facility] Laboratory - Microbiology an d Antimicrobial susceptibilityon 06-22-2024 FLUAV RNA YURIDIA+probe Ql (Resp) Not detected Not Detected [facility] FLUBV RNA YURIDIA+probe Ql (Resp) Not detected Not Detected [facility] RSV RNA YURIDIA+probe Ql (Resp) Not detected Not Detected [facility] SARS-CoV-2 (COVID-19) RNA YURIDIA+probe Ql (Resp) Not detected Not Detected [facility] alth NT PRO BNPon 06-22-2024 Natriuretic peptide B (Bld) [Mass/Vol] 141 pg/mL High <125 [facility] Comment on above: Performed By: #### L AB106, [id number], [id number], LAB15 ####Shop Supervisor: SADIE YANG ([phone])[address] Natriuretic peptide B [Mass/ Vol]Ordered By: Moira Barkley on 06-22-2024 Interpretation and review of laboratory results Abnormal [facility] Natriuretic peptide B (Bld) [Mass/Vol] 141 pg/mL High NINF - 125 pg/mL [facility] Mempile No Panel InformationOrdered By: Vanesa Saldivar on 06-22-2024 P [place] 11 degrees [facility] Work Phone: MI Interval 139 ms [employer] Work Phone: QRS [place] 41 degrees [employer] Work Phone: QRSD Interval 87 ms [facility] [employer] Work Phone: QT Interval 344 ms [employer] [facility] Work Phone: QTC Interval 420 ms [employer] [facility] Work Phone: T Wave [place] 30 degrees [employer] [facility] Work Phone: [facility] Work Phone: No Panel Informationon 06-22 Sinus rhythm with normal rate, intervals and QRS duration. No acute ischemic changes. Electronically Signed On 06-22-2024 20:18:53 EDT by Vanesa Rene, DO - 06/22/2024 IMPRESSION: Sinus rhythm with normal rate, intervals and QRS duration. No acute ischemic changes. Electronically Signed On 06-22-2024 20:18:53 EDT by Vanesa Saldivar [facility] Values in should double every 2 to [...] or monitor tumors or gestational trophoblastic disease. [facility] SARS-COV-2, FLU A/B, AND RSV COMBOon 06-22-2024 SARS-CoV-2 (COVID-19) RNA YURIDIA+probe Ql (Unsp spec) SARS-COV-2 Reference Not Detected Not Detected RESPIRATORY SYNCYTIAL VIRUS Reference Not Detected Not Detected INFLUENZA A (CEPHEID) Reference Not Detected Not Detected INFLUENZA B (CEPHEID) Reference Not Detected Not Detected ORDER COMMENTS: Methodology: real-time, RT-PCR Normal [facility] Comment on above: Performed By: #### L [id number] #### Shop Supervisor: SADIE YANG ([id number]) [facility] ([facility]) [address] [place] [address] SARS-CoV-2, Flu A/B, and RSV Comboon 06-22-2024 Interpretation and review of laboratory results Normal [facility] Methodology: real-time, RT-PCR [facility] TROPONIN, WITH SERIAL REFLEX on 06-22-2024 Troponin I.cardiac [Mass/Vol] ng/mL Normal <0.034 [facility] Comment on above: Result Comment: LING Gregory COMMENTS: Patients with high levels of Biotin oral intake (ie >5 mg/day) may have falsely decreased Troponin levels. Performed By: #### L AB106, [id number], [id number], LAB15 ####Shop Supervisor: SADIE YANG ([phone])[facility] ([facility])[address] [place] [address] Troponin I.cardiac [Mass/Vol ]on 06-22-2024 Interpretation and review of laboratory results Normal [facility] Patients with high levels of Biotin oral intake (ie >5 mg/day) may have falsely decreased Troponin levels. [facility] Vital signsOrdered By: Betito Saldivar on 06-22-2024 Heart rate 89 /min bpm [facility] Work Phone: APAP SerPl-mCncon 06-09-2024 Acetaminophen [Mass/Vol] ug/mL Low 10-30 [facility] Comment on above: Order Comment: Speci men Type: BLOOD SPECIMEN Ordering Facility: [facility] Address: [address] [place] [address] Result Comment: Toxi c > 150 ug/mL 4 hours post ingestion The Billy Arenas nomogram can be used to estimate the probability of hepatotoxicity via the relationship of plasma acetaminophen concentration to the post ingestion interval. (Inocencio. Pediatrics. 1975. 55:871 to 876 and Billy et al. [employer] Med. 1981. 141:380 to 385). Reference ranges and high/low indicator flags are provided as general guidelines only. The treating physician must determine appropriate target levels/dosing based on the specific clinical situation. Performed By: #### 5 643-2, 3298-7, 4024-6 #### [facility] CLIA [id number] [address] [place] CBC W Auto Differential pane l (Bld)on 06-09-2024 Basophils (Bld) [#/Vol] 0.04 10*3/uL Normal <0.11 [facility] Comment on above: Order Comment: Speci men Type: BLOOD SPECIMEN Ordering Facility: [facility] Address: [address] [place] [address] Performed By: #### 5 7021-8 #### [facility] CLIA [id number] [address] Basophils/100 WBC (Bld) 0.6 % Normal [place] Comment on above: Order Comment: Speci men Type: BLOOD SPECIMEN Ordering Facility: [facility] Address: [address] [place] [address] Performed By: #### 5 7021-8 #### [facility] CLIA [id number] [address] Differential cell count method Nom (Bld) Auto Normal [facility] Comment on above: Order Comment: Speci men Type: BLOOD SPECIMEN Ordering Facility: [facility] Address: [address] [place] [address] Performed By: #### 5 7021-8 #### [facility] CLIA [id number] [address] OF [facility] Eosinophils (Bld) [#/Vol] 0.15 10*3/uL Normal <0.46 [facility] Comment on above: Order Comment: Speci men Type: BLOOD SPECIMEN Ordering Facility: [facility] Address: [address] [place] [address] Performed By: #### 5 7021-8 #### [facility] CLIA [id number] [address] Eosinophils/100 WBC (Bld) 2.1 % Normal [facility] Comment on above: Order Comment: Speci men Type: BLOOD SPECIMEN Ordering Facility: [facility] Address: [address] [place] [address] Performed By: #### 5 7021-8 #### [facility] CLIA [id number] [address] Erythrocyte distribution width (RBC) [Ratio] 12.3 % Normal 11.5-15.0 [facility] Comment on above: Order Comment: Speci men Type: BLOOD SPECIMEN Ordering Facility: [facility] Address: [address] [place] [address] Performed By: #### 5 7021-8 #### [facility] CLIA [id number] [address] [place] Hematocrit (Bld) [Volume fraction] 46.4 % High 36.0-46.0 [facility] Comment on above: Order Comment: Speci men Type: BLOOD SPECIMEN Ordering Facility: [facility] Address: [facility] [place] [address] Performed By: #### 5 7021-8 #### [facility] CLIA [id number] [address] [place] Hemoglobin (Bld) [Mass/Vol] 15.3 g/dL Normal 11.5-15.5 [facility] Comment on above: Order Comment: Speci men Type: BLOOD SPECIMEN Ordering Facility: [facility] Address: [address] [place] [address] Performed By: #### 5 7021-8 #### [facility] CLIA [id number] [address] OF [facility] Immature granulocytes (Bld) [#/Vol] 0.03 10*3/uL Normal <0.10 [facility] Comment on above: Order Comment: Speci men Type: BLOOD SPECIMEN Ordering Facility: [facility] Address: [address] [place] [address] Performed By: #### 5 7021-8 #### [facility] CLIA [id number] [address] Immature granulocytes/100 WBC (Bld) 0.4 % Normal [facility] Comment on above: Order Comment: Speci men Type: BLOOD SPECIMEN Ordering Facility: [facility] Address: [address] [place] [address] Performed By: #### 5 7021-8 #### [facility] CLIA [id number] [address] [place] Lymphocytes (Bld) [#/Vol] 1.81 10*3/uL Normal 1.00-4.00 [facility] Comment on above: Order Comment: Speci men Type: BLOOD SPECIMEN Ordering Facility: [facility] Address: [address] [place] [address] Performed By: #### 5 7021-8 #### [facility] CLIA [id number] [address] Lymphocytes/100 WBC (Bld) 25.1 % Normal [facility] Comment on above: Order Comment: Speci men Type: BLOOD SPECIMEN Ordering Facility: [facility] Address: [address] [place] [address] Performed By: #### 5 7021-8 #### [facility] CLIA [id number] [address] MCH (RBC) [Entitic mass] 30.6 pg Normal 26.0-34.0 [facility] Comment on above: Order Comment: Speci men Type: BLOOD SPECIMEN Ordering Facility: [facility] Address: [address] [place] [address] Performed By: #### 5 7021-8 #### [facility] CLIA [id number] [address] OF [facility] MCHC (RBC) [Mass/Vol] 33.0 g/dL Normal 30.5-36.0 [facility] Comment on above: Order Comment: Speci men Type: BLOOD SPECIMEN Ordering Facility: [facility] Address: [address] [place] [address] Performed By: #### 5 7021-8 #### [facility] CLIA [id number] [address] MCV (RBC) [Entitic vol] 92.8 fL Normal 80.0-100.0 [facility] Comment on above: Order Comment: Speci men Type: BLOOD SPECIMEN Ordering Facility: [facility] Address: [address] [place] [address] Performed By: #### 5 7021-8 #### [facility] CLIA [id number] [address] [place] Monocytes (Bld) [#/Vol] 0.59 10*3/uL Normal <0.87 [facility] Comment on above: Order Comment: Speci men Type: BLOOD SPECIMEN Ordering Facility: [facility] Address: [address] [place] [address] Performed By: #### 5 7021-8 #### [facility] CLIA [id number] [address] [place] Monocytes/100 WBC (Bld) 8.2 % Normal [place] Comment on above: Order Comment: Speci men Type: BLOOD SPECIMEN Ordering Facility: [facility] Address: [address] [place] [address] Performed By: #### 5 7021-8 #### [facility] CLIA [id number] [address] [place] Neutrophils (Bld) [#/Vol] 4.58 10*3/uL Normal 1.45-7.50 [facility] Comment on above: Order Comment: Speci men Type: BLOOD SPECIMEN Ordering Facility: [facility] Address: [address] [place] [address] Performed By: #### 5 7021-8 #### [facility] CLIA [id number] [address] [place] Neutrophils/100 WBC (Bld) 63.6 % Normal [facility] Comment on above: Order Comment: Speci men Type: BLOOD SPECIMEN Ordering Facility: [facility] Address: [address] [place] [address] Performed By: #### 5 7021-8 #### [facility] CLIA [id number] 1 [place] [address] [place] Nucleated RBC (Bld) [#/Vol] 10*3/uL Normal <0.01 [facility] Comment on above: Order Comment: Speci men Type: BLOOD SPECIMEN Ordering Facility: [facility] Address: [address] [place] [address] Performed By: #### 5 7021-8 #### [facility] CLIA [id number] [address] [place] Nucleated RBC/100 WBC (Bld) [Ratio] 0.0 /100 WBC Normal [facility] Comment on above: Order Comment: Speci men Type: BLOOD SPECIMEN Ordering Facility: [facility] Address: [address] [place] [address] Performed By: #### 5 7021-8 #### [facility] CLIA [id number] [address] [place] Platelet mean volume (Bld) [Entitic vol] 12.4 fL Normal 9.0-12.7 [facility] Comment on above: Order Comment: Speci men Type: BLOOD SPECIMEN Ordering Facility: [facility] Address: [address] [place] [address] Performed By: #### 5 7021-8 #### [facility] CLIA [id number] [address] [place] Platelets (Bld) [#/Vol] 114 10*3/uL Low 150-400 [facility] Comment on above: Order Comment: Speci men Type: BLOOD SPECIMEN Ordering Facility: [facility] Address: [address] [place] [address] Performed By: #### 5 7021-8 #### [facility] CLIA [id number] [address] [place] RBC (Bld) [#/Vol] 5.00 10*6/uL Normal 3.90-5.20 [facility] Comment on above: Order Comment: Speci men Type: BLOOD SPECIMEN Ordering Facility: [facility] Address: [address] [place] [address] Performed By: #### 5 7021-8 #### [facility] CLIA [id number] [address] [place] [address] [place] WBC (Bld) [#/Vol] 7.20 10*3/uL Normal 3.70-11.00 [facility] Comment on above: Order Comment: Speci men Type: BLOOD SPECIMEN Ordering Facility: [facility] Address: [address] [place] [address] Performed By: #### 5 7021-8 #### [facility] CLIA [id number] [address] Comprehensive metabolic 2000 panelon 06-09-2024 Albumin [Mass/Vol] 3.7 g/dL Low 3.9-4.9 [facility] Comment on above: Order Comment: Speci men Type: BLOOD SPECIMENOrdering Facility: [facility] Address: [address] [place] [address] Performed By: #### 2 4323-8 ####[facility]IA [id number] [address] STATES [facility] ALP [Catalytic activity/Vol] 94 U/L Normal 34-123 [facility] Comment on above: Order Comment: Speci men Type: BLOOD SPECIMENOrdering Facility: [facility] Address: [address] [place] [address] Performed By: #### 2 4323-8 ####[facility]IA [id number] [address] ALT With P-5'-P [Catalytic activity/Vol] 12 U/L Normal 7-38 [facility] Comment on above: Order Comment: Speci men Type: BLOOD SPECIMENOrdering Facility: [facility] Address: [address] [place] [address] Performed By: #### 2 4323-8 ####[facility]ORY[facility]IA [id number] [address] STATES [facility] Anion gap [Moles/Vol] 13 mmol/L Normal 8-15 [facility] Comment on above: Order Comment: Speci men Type: BLOOD SPECIMENOrdering Facility: [facility] Address: [address] [place] [address] Performed By: #### 2 4323-8 ####[facility] [id number] [place] [address] [place] AST With P-5'-P [Catalytic activity/Vol] 16 U/L Normal 13-35 [facility] Comment on above: Order Comment: Speci men Type: BLOOD SPECIMENOrdering Facility: [facility] Address: [address] [place] [address] Performed By: #### 2 4323-8 ####[facility] [id number] [place] [address] [place] Bilirubin [Mass/Vol] 0.4 mg/dL Normal 0.2-1.3 [facility] Comment on above: Order Comment: Speci men Type: BLOOD SPECIMENOrdering Facility: [facility] Address: [address] [place] [address] Performed By: #### 2 4323-8 ####[facility]CLIA [id number] [address] STATES OF [facility] Calcium [Mass/Vol] 8.5 mg/dL Normal 8.5-10.2 [facility] Comment on above: Order Comment: Speci men Type: BLOOD SPECIMENOrdering Facility: [facility] Address: [address] [place] [address] Performed By: #### 2 4323-8 ####[facility]ORYCLIA [id number] [place] [address] [place] Chloride [Moles/Vol] 105 mmol/L Normal 98-107 [facility] Comment on above: Order Comment: Speci men Type: BLOOD SPECIMENOrdering Facility: [facility] Address: [address] [place] [address] Performed By: #### 2 4323-8 ####[facility] [id number] [place] [address] [place] CO2 [Moles/Vol] 21 mmol/L Low 22-30 [facility] Comment on above: Order Comment: Speci men Type: BLOOD SPECIMENOrdering Facility: [facility] Address: [address] [place] [address] Performed By: #### 2 4323-8 ####[facility] [id number] [place] [id number] [place] OF [facility] Creatinine [Mass/Vol] 1.06 mg/dL High 0.58-0.96 [facility] Comment on above: Order Comment: Speci men Type: BLOOD SPECIMENOrdering Facility: [facility] Address: [address] [place] [address] Performed By: #### 2 4323-8 ####[facility] [id number] [address] Creatinine and Glomerular filtration rate.predicted panel (S/P/Bld) 70 mL/min/1.73m??? Normal >=60 [facility] Comment on above: Order Comment: Speci men Type: BLOOD SPECIMENOrdering Facility: [facility] Address: [address] [place] [address] Result Comment: Annie mated Glomerular Filtration Rate [...] actual GFR. Performed By: #### 2 4323-8 ####[facility]ORYCLIA [id number] [address] STATES OF [facility] Glucose [Mass/Vol] 87 mg/dL Normal 74-99 [facility] Comment on above: Order Comment: Speci men Type: BLOOD SPECIMENOrdering Facility: [facility] Address: [address] [place] [address] Result Comment: The [place] Diabetes Association (ADA) provides guidance for cutoff [...] Standards of Medical Care in Diabetes 2016, [place] [employer]. Diabetes Care. 2016.39(Suppl 1). Performed By: #### 2 4323-8 ####[facility]ORYCLIA [id number] [place] [address] [place] Potassium [Moles/Vol] 4.1 mmol/L Normal 3.7-5.1 [facility] Comment on above: Order Comment: Jamar bruner Type: BLOOD SPECIMENOrdering Facility: [facility] Address: [address] [place] [address] Performed By: #### 2 4323-8 ####[facility]ORYCLIA [id number] [place] [address] [place] Protein [Mass/Vol] 6.1 g/dL Low 6.3-8.0 [facility] Comment on above: Order Comment: Speci franc Type: BLOOD SPECIMENOrdering Facility: [facility] Address: [address] [place] [address] Performed By: #### 2 4323-8 ####[facility]ORYCLIA [id number] [place] [address] [place] Sodium [Moles/Vol] 139 mmol/L Normal 136-144 [facility] Comment on above: Order Comment: Speci men Type: BLOOD SPECIMENOrdering Facility: [facility] Address: [address] [place] [address] Performed By: #### 2 4323-8 ####[facility]ORYCLIA [id number] [place] [address] [place] Urea nitrogen [Mass/Vol] 6 mg/dL Low 7-21 [facility] Comment on above: Order Comment: [place] men Type: BLOOD SPECIMENOrdering Facility: [facility] Address: [address] [place] [address] Performed By: #### 2 4323-8 ####[facility]ORYCLIA [id number] [place] [address] [place] ECG COMPLETEon 06-09-2024 ECG COMPLETE Ventricular Rate : 77 BPM Atrial Rate : 77 BPM P-R Interval : 144 ms QRS Duration : 78 ms Q-T Interval : 392 ms QTC Calculation(Bazett) : 443 ms Calculated P Tipton : 29 degrees Calculated R Tipton : 78 degrees Calculated T Tipton : 27 degrees NORMAL SINUS RHYTHM ANTERIOR INFARCT , AGE UNDETERMINED ABNORMAL ECG NO PREVIOUS ECGS AVAILABLE Confirmed by MD ARVIZU CAROL ([id number]) on 06/09/2024 6:08:59 PM NAME : MARIELLA CHRISTINE PID : [id number] : 1990 Gender : Female Race : ORD : [id number] Procedure Date : Jun 09 2024 17:27:26 Edit Date : Jun 09 2024 18:09:01 Diagnosis: NORMAL SINUS RHYTHM ANTERIOR INFARCT , AGE UNDETERMINED ABNORMAL ECG NO PREVIOUS ECGS AVAILABLE Confirmed by MD ARVIZU CAROL ([id number]) on 06/09/2024 6:08:59 PM Test Reason : Check QT Location : 4 : [facility] EM Overread By : MD ARVIZU CAROL Edited By : MD ARVIZU CAROL Referred By : , Acquired by : REAGAN VELAZQUEZ Normal [facility] ED NOTEon 06-09-2024 ED NOTE HNO ID: [id number] Author: REAGAN NICKERSON RN Service: Emergency Medicine Author Type: Registered Nurse Type: ED Notes Filed: 06/09/2024 16:35 Note Text: VBG delivered Normal [facility] ED NOTE HNO ID: [id number] Author: REAGAN NICKERSON RN Service: Emergency Medicine Author Type: Registered Nurse Type: ED Notes Filed: 06/09/2024 16:22 Note Text: Dr. Davis at bedside placing US IV Normal [facility] ED NOTE HNO ID: [id number] Author: REAGAN NICKERSON RN Service: Emergency Medicine Author Type: Registered Nurse Type: ED Notes Filed: 06/09/2024 16:20 Note Text: Resident notified of need for US IV. Pt room set up for seizure precautions. Pt on continuous cardiac and SPO2 monitoring. Pt has call light. Normal [facility] ED PROV NOTEon 06-09-2024 ED PROV NOTE HNO ID: [id number] Author: AMITA ARREDONDO, DO Service: ? Author [...] years and then at her psychiatrist at [facility] put her back on seizure [...] close outpatient follow-up with PCP and/or psychiatry. POPPYAMITA REDMOND 06/09/24 1710 Normal [facility] ED PROV NOTE HNO ID: [id number] Author: LUZ ELENA ARVIZU MD Service: Emergency [...] 4:31 PM PAGER/CONTACT #: LUANN SERVIN 06/10/24 0136 Attending Note I evaluated the patient and personally participated in the dave components. I agree with the resident's findings and plan as documented and have discussed the case and management of the patient's care with the resident. Signature: Luz Elena Arvizu MD Date: 06/10/2024 Time: 1:33 AM LUZ ELENA ARVIZU 06/10/24 0133 Normal [facility] ED PROV NOTE HNO ID: [id number] Author: AMITA ARREDONDO DO Service: Emergency Medicine [...] bipolar disorder, anxiety and is established with [facility]. Is on Buspar, Prozac, Trazodone, and Invega Sustenna. States last Invega Sustenna injection May 29, next appointment w/ Corinne Deras on June 25. Pt lives w/ cousinSteffanie. Feels safe at home. Denies SI/ HI. Pt also states she is currently , about 6 months. Pt states urine tests always say negative but the blood tests show I'm . States she is currently lactating. Pt gave permission to speak w/ her cousin, Steffanie ([phone]) Steffanie confirms the pt lives w/ her. 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 Normal [facility] Ethanol SerPl-mCncon 024 Ethanol [Mass/Vol] mg/dL Normal <11 [facility] Comment on above: Order Comment: Speci men Type: BLOOD SPECIMENOrdering Facility: [facility] Address: [address] [place] [address] Performed By: #### 5 643-2, 3298-7, 4024-6 ####[facility]ORYCLIA [id number] [place] [address] [place] HCG Preg Ur Qlon 06-09-2024 HCG ( test) Ql (U) Negative Normal Negative [facility] Comment on above: Order Comment: Speci men Type: URINE SPECIMENOrdering Facility: [facility] Address: [address] [place] [address] Result Comment: This test is intended to aid in the early detection of . Very dilute urine samples, as indicated by a low specific gravity, may not contain teleservices representative levels of hCG. This test detects [...] for . Performed By: #### 2 106-3 ####[facility]CL[facility] [id number] [place] [address] [place] Salicylates SerPl-mCncon Salicylates [Mass/Vol] mg/dL Low 3.0-30.0 [facility] Comment on above: Order Comment: Speci men Type: BLOOD SPECIMENOrdering Facility: [facility] Address: [address] [place] [address] Result Comment: The therapeutic range varies and has been reported to be 3.0 to 10.0 mg/dL for anti pyretic/analgesic conditions and 15.0 to 30.0 mg/dL for anti inflammatory/rheumatic fever conditions. Ranges published by the instrument mucker operator. Reference ranges and high/low indicator flags are provided as general guidelines only. The treating physician must determine appropriate target levels/dosing based on the specific clinical situation. Performed By: #### 5 643-2, 3298-7, 4024-6 ####[facility]ORY[facility]IA [id number] [place] [address] [place] TOXICOLOGY SCREEN, ROUTINE U RINEon 06-09-2024 Amphetamines Confirm (U) [Mass/Vol] Negative Normal Negative [facility] Comment on above: Order Comment: Speci men Type: URINE SPECIMEN Ordering Facility: [facility] Address: [address] [place] [address] Result Comment: Cuto ff threshold at 1000 ng/mL. Performed By: #### U TOX2 #### [facility] CLIA [id number] 1 [place] [address] [place] BARBITURATES, URINE Negative Normal Negative [facility] Comment on above: Order Comment: Speci men Type: URINE SPECIMEN Ordering Facility: [facility] Address: [address] [place] [address] Result Comment: Cuto ff threshold at 200 ng/mL. Performed By: #### U TOX2 #### [facility] CLIA [id number] 1 [place] [address] [place] BENZODIAZEPINES, UR Negative Normal Negative [facility] Comment on above: Order Comment: Speci men Type: URINE SPECIMEN Ordering Facility: [facility] Address: [facility] [place] [address] Result Comment: Cuto ff threshold at 200 ng/mL. Performed By: #### U TOX2 #### [facility] CLIA [id number] [address] [place] Cannabinoids Screen Ql (U) Positive Abnormal Negative [facility] Comment on above: Order Comment: Speci men Type: URINE SPECIMEN Ordering Facility: [facility] Address: [address] [place] [address] Result Comment: Cuto ff threshold at 50 ng/mL. Performed By: #### U TOX2 #### [facility] CLIA [id number] [address] [place] Cocaine Ql (U) Negative Normal Negative [facility] Comment on above: Order Comment: Speci men Type: URINE SPECIMEN Ordering Facility: [facility] Address: [address] [place] [address] Result Comment: Cuto ff threshold at 300 ng/mL. Performed By: #### U TOX2 #### [facility] CLIA [id number] 1 [place] [address] [place] Ethanol (U) [Mass/Vol] <11 Normal <11 [facility] Comment on above: Order Comment: Speci men Type: URINE SPECIMEN Ordering Facility: [facility] Address: [address] [place] [address] Performed By: #### U TOX2 #### [facility] CLIA [id number] [address] [place] Opiates Screen Ql (U) Negative Normal Negative [facility] Comment on above: Order Comment: Speci men Type: URINE SPECIMEN Ordering Facility: [facility] Address: [address] [place] [address] Result Comment: Cuto ff threshold at 300 ng/mL. Performed By: #### U TOX2 #### [facility] CLIA [id number] 1 [place] [address] [place] oxyCODONE cutoff Screen (U) [Mass/Vol] Negative Normal Negative [facility] Comment on above: Order Comment: Speci men Type: URINE SPECIMEN Ordering Facility: [facility] Address: [address] [place] [address] Result Comment: Cuto ff threshold at 100 ng/mL. Performed By: #### U TOX2 #### [facility] CLIA [id number] [address] Phencyclidine Ql (U) Negative Normal Negative [facility] Comment on above: Order Comment: Speci men Type: URINE SPECIMEN Ordering Facility: [facility] Address: [address] [place] [address] Result Comment: Cuto ff threshold at 25 ng/mL. Performed By: #### U TOX2 #### [facility] CLIA [id number] [address] Urinalysis complete panel (U )on 06-09-2024 Bilirubin Ql (U) Negative Normal Negative [facility] Comment on above: Order Comment: Speci men Type: URINE SPECIMEN Ordering Facility: [facility] Address: [address] [place] [address] Performed By: #### 2 4356-8 #### [facility] CLIA [id number] [address] Clarity (Unsp spec) Clear Normal Clear [facility] Comment on above: Order Comment: Speci men Type: URINE SPECIMEN Ordering Facility: [facility] Address: [address] [place] [address] Performed By: #### 2 4356-8 #### [facility] CLIA [id number] [address] Color (U) Colorless Normal yellow [facility] Comment on above: Order Comment: Speci men Type: URINE SPECIMEN Ordering Facility: [facility] Address: [address] [place] [address] Performed By: #### 2 4356-8 #### [facility] CLIA [id number] [address] Epithelial cells LM.HPF (Urine sed) [#/Area] Few Normal [facility] Comment on above: Order Comment: Speci men Type: URINE SPECIMEN Ordering Facility: [facility] Address: [facility] [place] [address] Result Comment: Few Performed By: #### 2 4356-8 #### [facility] CLIA [id number] [address] [place] Glucose Test strip (U) [Mass/Vol] Negative Normal Trace, Negative [facility] Comment on above: Order Comment: Speci men Type: URINE SPECIMEN Ordering Facility: [facility] Address: [address] [place] [address] Performed By: #### 2 4356-8 #### [facility] CLIA [id number] [address] OF [facility] Hemoglobin Ql (U) Negative Normal Negative, Trace [facility] Comment on above: Order Comment: Speci men Type: URINE SPECIMEN Ordering Facility: [facility] Address: [address] [place] [address] Performed By: #### 2 4356-8 #### [facility] CLIA [id number] [address] [place] Ketones Ql (U) Negative Normal Negative, Trace [facility] Comment on above: Order Comment: Speci men Type: URINE SPECIMEN Ordering Facility: [facility] Address: [address] [place] [address] Performed By: #### 2 4356-8 #### [facility] CLIA [id number] [address] [place] Leukocyte esterase Test strip Ql (U) Negative Normal Negative, 25 Bill/uL [facility] Comment on above: Order Comment: Speci men Type: URINE SPECIMEN Ordering Facility: [facility] Address: [address] [place] [address] Performed By: #### 2 4356-8 #### [facility] CLIA [id number] 1 [place] [address] [place] Nitrite Ql (U) Negative Normal Negative [facility] Comment on above: Order Comment: Speci men Type: URINE SPECIMEN Ordering Facility: [facility] Address: [address] [place] [address] Performed By: #### 2 4356-8 #### [facility] CLIA [id number] [address] [place] pH (U) 7.0 [pH] Normal 5.0-8.0 [facility] Comment on above: Order Comment: Speci men Type: URINE SPECIMEN Ordering Facility: [facility] Address: [address] [place] [address] Performed By: #### 2 4356-8 #### [facility] CLIA [id number] [address] [place] Protein (U) [Mass/Vol] Negative Normal Trace , Negative [facility] Comment on above: Order Comment: Speci men Type: URINE SPECIMEN Ordering Facility: [facility] Address: [address] [place] [address] Performed By: #### 2 4356-8 #### [facility] CLIA [id number] [address] STATES [facility] RBC LM.HPF (Urine sed) [#/Area] 0-3 /HPF Normal 0-3 /HPF [facility] Comment on above: Order Comment: Speci men Type: URINE SPECIMEN Ordering Facility: [facility] Address: [address] [place] [address] Performed By: #### 2 4356-8 #### [facility] CLIA [id number] [address] [place] Specific gravity (U) [Rel density] 1.007 Normal 1.005-1.030 [facility] Comment on above: Order Comment: Speci men Type: URINE SPECIMEN Ordering Facility: [facility] Address: [address] [place] [address] Performed By: #### 2 4356-8 #### [facility] CLIA [id number] [address] [place] Urobilinogen Ql (U) Normal Normal Normal [facility] Comment on above: Order Comment: Speci men Type: URINE SPECIMEN Ordering Facility: [facility] Address: [address] [facility] [place] [id number] Performed By: #### 2 4356-8 #### [facility] CLIA [id number] [address] WBC LM.HPF (Urine sed) [#/Area] 0-5 /HPF Normal 0-5 /HPF [facility] Comment on above: Order Comment: Speci men Type: URINE SPECIMEN Ordering Facility: [facility] Address: [address] [place] [id number] Performed By: #### 2 4356-8 #### [facility] CLIA [id number] 1 [place] [id number] [facility] Progress Noteon 05-29-2024 Progress Note Erroneous encounter. No Show. Normal [facility] 36on 05-24-2024 36 Called patient to only [...] positive. Patient then says she went to [facility] and got an ultrasound and was only [...] PCP said to give patient number for [facility] which I did. After this [...] has cramping. I told patient to call [facility] once we ended are call and she agreed. After hanging up I spoke with a provider about the other information given about losing something in toilet. Provider states patient should go to ER. I Called patient and told her she should go to ER and she said she would. [facility] [id number] 36 Pt RS appt for 05/29/24 with johanna [facility] 05-14-2024 36 LVM to return call, please assist in rescheduling their missed appointment if they would still like to be seen. Normal [facility] BASIC METABOLIC PANELon 05- Anion gap [Moles/Vol] 11 mmol/L Normal 3-13 [facility] Comment on above: Performed By: #### L AB15, [id number], [id number] ####Shop Supervisor: SADIE YANG ([phone])[address] Calcium [Mass/Vol] 9.1 mg/dL Normal 8.4-10.4 [facility] Comment on above: Performed By: #### L AB15, [id number], IBL127 ####Shop Supervisor: SADIE YANG ([phone])[facility] ([facility])[address] [place] [address] Chloride [Moles/Vol] 106 mmol/L Normal 98-107 [facility] Comment on above: Performed By: #### L AB15, JWT191, KXR859 ####Shop Supervisor: SADIE YANG ([phone])[facility])[address] [place] [address] CO2 [Moles/Vol] 21 mmol/L Low 22-30 [facility] Comment on above: Performed By: #### L AB15, VDX604, RNP981 ####Shop Supervisor: SADIE YANG ([phone])[facility] [place] [address] [place] Creatinine [Mass/Vol] 1.02 mg/dL Normal 0.52-1.04 [facility] Comment on above: Performed By: #### L AB15, CEF392, CFY878 ####Shop Supervisor: SADIE YANG ([phone])[facility] ([facility])[address] [place] [address] [place] GLOMERULAR FILTRATION RATE ML/MIN/1.73 SQ M.PREDICTED 73.7 mL/min/1.73m*2 Normal >60.0 [facility] Comment on above: Result Comment: Calc ulation based on the Chronic Kidney Disease Epidemiology Collaboration (CKD-EPI) equation refit without adjustment for race Performed By: #### L AB15, VJM196, FSP429 ####Shop Supervisor: SADIE YANG ([phone])[facility] ([facility])[address] [place] [address] [place] Glucose [Mass/Vol] 89 mg/dL Normal 70-100 [facility] Comment on above: Performed By: #### L AB15, MED290, CRS263 ####Shop Supervisor: SADIE YANG ([phone])[facility] ([facility])[address] [place] [address] [place] Potassium [Moles/Vol] 3.5 mmol/L Normal 3.5-5.1 [facility] Comment on above: Performed By: #### L AB15, MKK453, OXS443 ####Shop Supervisor: SADIE YANG ([phone])[facility] [place] [address] [place] Sodium [Moles/Vol] 139 mmol/L Normal 135-145 [facility] Comment on above: Performed By: #### L AB15, IPK434, VJP698 ####Shop Supervisor: SADIE YANG ([phone])[facility] ([facility])[address] [place] [address] [place] Urea nitrogen [Mass/Vol] 12 mg/dL Normal 7-17 [facility] Comment on above: Performed By: #### L AB15, UZS738, PDA436 ####Shop Supervisor: SADIE YANG ([phone])[facility] ([address] Basic metabolic 1998 panelon 04-13-2024 Anion gap [Moles/Vol] 11 mmol/L 3 - 13 mmol/L [facility] Calcium [Mass/Vol] 9.1 mg/dL 8.4 - 10. 4 mg/dL [facility] Chloride [Moles/Vol] 106 mmol/L 98 - 10 7 mmol/L [facility] CO2 [Moles/Vol] 21 mmol/L Low 22 - 30 mmol/L [facility] Creatinine [Mass/Vol] 1.02 mg/dL 0.52 - 1.04 mg/dL [facility] GFR/1.73 sq M.predicted MDRD (S/P/Bld) [Vol rate/Area] 73.7 mL/min/{1.73_m2} - PINF [facility] Comment on above: Calculation based on the Chronic Kidney Disease Epidemiology Collaboration (CKD-EPI) equation refit without adjustment for race Glucose [Mass/Vol] 89 mg/dL 70 - 100 mg/dL [facility] Interpretation and review of laboratory results Abnormal [facility] Potassium [Moles/Vol] 3.5 mmol/L 3.5 - 5.1 mmol/L [facility] Sodium [Moles/Vol] 139 mmol/L 135 - 145 mmol/L [facility] Urea nitrogen [Mass/Vol] 12 mg/dL 7 - 17 mg/d L [facility] CBC W Auto Differential pane l (Bld)on 04-13-2024 Basophils (Bld) [#/Vol] 0.0 10*3/uL 0.0 - 0.2 10*3/uL [facility] Basophils/100 WBC (Bld) 0.6 % 0.0 - 2.0 % [facility] Eosinophils (Bld) [#/Vol] 0.2 10*3/uL 0.0 - 0.5 10*3/uL [facility] Eosinophils/100 WBC (Bld) 2.6 % 0.0 - 6.0 % [facility] Erythrocyte distribution width (RBC) [Ratio] 12.1 % 11.5 - 15.0 % [facility] Hematocrit (Bld) [Volume fraction] 45.1 % 35.0 - 47.0 % [facility] Hemoglobin (Bld) [Mass/Vol] 15.3 g/dL 11.7 - 16.0 g/dL [facility] Immature granulocytes (Bld) [#/Vol] 0.0 10*3/uL NINF - 0.1 10*3/uL [facility] Immature granulocytes/100 WBC (Bld) 0.4 % 0.0 - 2.0 % [facility] Interpretation and review of laboratory results Abnormal [facility] Lymphocytes (Bld) [#/Vol] 2.1 10*3/uL 1.0 - 4.3 10*3/uL [facility] Lymphocytes/100 WBC (Bld) 28.3 % 15.0 - 45.0 % [facility] MCH (RBC) [Entitic mass] 29.6 pg 26. 0 - 34.0 pg [facility] MCHC (RBC) [Mass/Vol] 33.9 % 30.5 - 36.0 % [facility] MCV (RBC) [Entitic vol] 87.2 fL 77.0 - 99.0 fL [facility] Monocytes (Bld) [#/Vol] 0.7 10*3/uL 0.0 - 0.9 10*3/uL [facility] Monocytes/100 WBC (Bld) 9.3 % 5.0 - 13.0 % [facility] Neutrophils (Bld) [#/Vol] 4.3 10*3/uL 1.8 - 7.5 10*3/uL [facility] Neutrophils/100 WBC (Bld) 58.8 % 38.0 - 82.0 % [facility] Nucleated RBC/100 WBC (Bld) [Ratio] 0.0 % [facility] Platelet mean volume (Bld) [Entitic vol] 12.1 fL 9.0 - 12.7 fL [facility] Platelets (Bld) [#/Vol] 118 10*3/uL Low 140 - 440 10*3/uL [facility] RBC (Bld) [#/Vol] 5.17 10*6/uL 3.80 - 5.2 0 10*6/uL [facility] WBC (Bld) [#/Vol] 7.2 10*3/uL 3.6 - 10.7 10*3/uL [facility] CBC WITH AUTO DIFFERENTIALon 04-13-2024 Basophils (Bld) [#/Vol] 0.0 10*3/uL Normal 0.0-0.2 [facility] Comment on above: Performed By: #### L [id number] ####Shop Supervisor: SADIE YANG ([phone])[facility] ([facility])[address] [place] [address] Basophils/100 WBC (Bld) 0.6 % Normal 0.0-2.0 [facility] Comment on above: Performed By: #### L [id number] ####Shop Supervisor: SADIE YANG ([phone])[facility])[address] [place] [address] Eosinophils (Bld) [#/Vol] 0.2 10*3/uL Normal 0.0-0.5 [facility] Comment on above: Performed By: #### L [id number] ####Shop Supervisor: SADIE YANG ([phone])[facility] ([facility])[address] [place] [address] Eosinophils/100 WBC (Bld) 2.6 % Normal 0.0-6.0 [facility] Comment on above: Performed By: #### L [id number] ####Shop Supervisor: SADIE YANG ([phone])[facility])[address] [place] [address] Erythrocyte distribution width (RBC) [Ratio] 12.1 % Normal 11.5-15.0 [facility] Comment on above: Performed By: #### L [id number] ####Shop Supervisor: SADIE YANG ([phone])[facility])[address] [place] [address] Hematocrit (Bld) [Volume fraction] 45.1 % Normal 35.0-47.0 [facility] Comment on above: Performed By: #### L [id number] ####Shop Supervisor: SADIE YANG ([phone])[facility])[address] [place] [address] [place] Hemoglobin (Bld) [Mass/Vol] 15.3 g/dL Normal 11.7-16.0 [facility] Comment on above: Performed By: #### L [id number] ####Shop Supervisor: SADIE YANG ([phone])[facility])[address] [place] [address] IMMATURE GRANS % 0.4 % Normal 0.0-2.0 [facility] Comment on above: Performed By: #### L [id number] ####Shop Supervisor: SADIE YANG ([phone])[facility])[address] [place] [address] IMMATURE GRANS ABSOLUTE 0.0 10*3/uL Normal <0.1 [facility] Comment on above: Performed By: #### L [id number] ####Shop Supervisor: SADIE YANG ([phone])[facility])[address] [place] [address] Lymphocytes (Bld) [#/Vol] 2.1 10*3/uL Normal 1.0-4.3 [facility] Comment on above: Performed By: #### L [id number] ####Shop Supervisor: SADIE YANG ([phone])[facility])[address] [place] [address] Lymphocytes/100 WBC (Bld) 28.3 % Normal 15.0-45.0 [facility] Comment on above: Performed By: #### L [id number] ####Shop Supervisor: SADIE YANG ([phone])[facility])[address] [place] [address] MCH (RBC) [Entitic mass] 29.6 pg Normal 26.0-34.0 [facility] Comment on above: Performed By: #### L [id number] ####Shop Supervisor: SADIE YANG ([phone])[facility])[address] [place] [address] MCHC 33.9 % Normal 30.5-36.0 [facility] Comment on above: Performed By: #### L [id number] ####Shop Supervisor: SADIE YANG ([phone])[facility] ([facility])[address] [place] [address] MCV (RBC) [Entitic vol] 87.2 fL Normal 77.0-99.0 S [facility] Comment on above: Performed By: #### L [id number] ####Shop Supervisor: SADIE YANG ([phone])[facility] ([facility])[address] [place] [address] Monocytes (Bld) [#/Vol] 0.7 10*3/uL Normal 0.0-0.9 [facility] Comment on above: Performed By: #### L [id number] ####Shop Supervisor: SADIE YANG ([phone])[facility] ([facility])[address] [place] [address] Monocytes/100 WBC (Bld) 9.3 % Normal 5.0-13.0 S [facility] Comment on above: Performed By: #### L [id number] ####Shop Supervisor: SADIE YANG ([phone])[facility] ([facility])[address] [place] [address] NEUTROPHILS ABSOLUTE 4.3 10*3/uL Normal 1.8-7.5 [facility] Comment on above: Performed By: #### L [id number] ####Shop Supervisor: SADIE YANG ([phone])[facility] ([facility])[address] [place] [address] Neutrophils/100 WBC (Bld) 58.8 % Normal 38.0-82.0 [facility] Comment on above: Performed By: #### L [id number] ####Shop Supervisor: SADIE YANG ([phone])[facility] ([facility])[address] [place] [address] NRBC 0.0 /100 WBCs Normal 0.0-2.0 [facility] Comment on above: Performed By: #### L [id number] ####Shop Supervisor: SADIE YANG ([phone])[facility] ([facility])[address] [place] [address] Platelet mean volume (Bld) [Entitic vol] 12.1 fL Normal 9.0-12.7 [facility] Comment on above: Performed By: #### L [id number] ####Shop Supervisor: SADIE YANG ([phone])[facility])[address] [place] [address] Platelets (Bld) [#/Vol] 118 10*3/uL Low 140-440 [facility] Comment on above: Performed By: #### L [id number] ####Shop Supervisor: SADIE YANG ([phone])[facility])[address] [place] [address] RBC (Bld) [#/Vol] 5.17 10*6/uL Normal 3.80-5.20 [facility] Comment on above: Performed By: #### L [id number] ####Shop Supervisor: SADIE YANG ([phone])[facility] ([facility])[address] [place] [address] WBC (Bld) [#/Vol] 7.2 10*3/uL Normal 3.6-10.7 [facility] Comment on above: Performed By: #### L [id number] ####Shop Supervisor: SADIE YANG ([phone])[facility])[address] [place] [address] CT CERVICAL SPINE WO IV CONT [facility] 04-13-2024 CT CERVICAL SPINE WO IV CONTRAST Patient Name[facility]RISTINE : 1990 [id number] Exam Date/Time: 04/13/2024 17:12 Procedure: CT CERVICAL [...] trauma, dangerous injury mechanism (Age 16-64y) Normal [facility] CT Cervical spine WO contras ton 04-13-2024 Patient Name: MARIELLA CHRISTINE : 1990 [id number] Exam Date/Time: 04/13/2024 17:12 Procedure: CT CERVICAL [...] the paranasal sinuses shows no air-fluid levels. [facility] - 04/13/2024 Patient Name: MARIELLA CHRISTINE [...] Electronically Signed Date/Time: 04/13/2024 5:18 PM EDT [facility] CT HEAD WO IV CONTRASTon CT HEAD [...] trauma, dangerous injury mechanism (Age 16-64y) Normal [facility] CT Head WO contraston 2023 Patient Name: MARIELLA CHRISTINE : 1990 [id number] Exam Date/Time: 04/13/2024 17:12 Procedure: CT HEAD [...] the paranasal sinuses shows no air-fluid levels. [facility] Jorge Arce MD - 04/13/2024 Patient Name: MARIELLA CHRISTINE : 1990 [id number] Exam Date/Time: 04/13/2024 17:12 Procedure: CT HEAD [...] Electronically Signed Date/Time: 04/13/2024 5:18 PM EDT [facility] ECG 12-LEADon 04-13-2024 ECG 12-LEAD IMPRESSION: Sinus rhythm Probable anterior infarct, old Electronically Signed On 04-13-2024 22:19:39 EDT by Vanesa Phelps [facility] ED Nursing Noteon 04-13-2024 ED Nursing Note Vitals updated and patient was medicated. Denied further need or questions. This RN reviewed discharge paperwork with patient. Ambulated out of ED, going to main building to visit someone. Melissa Gilbert RN 04/13/245 [facility] ED Provider Noteon ED Provider Note EMERGENCY [...] pain Comparison (more content not included)... Normal [facility] Mempile [facility] Laboratory - Chemistry and C hemistry - challengeon 04-13-2024 Glucose [Mass/Vol] 95 mg/dL 70 - 100 mg/dL [facility]pile Troponin I.cardiac [Mass/Vol] ng/mL NINF - 0.034 ng/mL [facility] Magnesium [Mass/Vol] 2.0 mg/dL 1.6 - 2 .3 mg/dL [facility] MAGNESIUMon 04-13-2024 Magnesium [Mass/Vol] 2.0 mg/dL Normal 1.6-2.3 [facility] Mempile [facility] Comment on above: Performed By: #### L [id number], [id number], [id number] ####Shop Supervisor: SADIE YANG ([id number])[facility] ([address] Magnesium [Mass/Vol]on 04-13 Interpretation and review of laboratory results Normal [facility] Mempile No Panel InformationOrdered By: Vanesa Phelps on 04-13-2024 P [place] 27 degrees [employer] Work Phone: MI Interval 137 ms [facility] Work Phone: QRS [place] 25 degrees [employer] Work Phone: QRSD Interval 88 ms [facility] Work Phone: QT Interval 372 ms [facility] Work Phone: QTC Interval 438 ms [facility] Work Phone: T Wave [place] 26 degrees [facility] Work Phone: [facility] Work Phone: No Panel Informationon 04-13 Sinus rhythm Probable anterior infarct, old Electronically Signed On 04-13-2024 22:19:39 EDT by Vanesa Quintanaon, Vanesa, MD - 04/13/2024 IMPRESSION: Sinus rhythm Probable anterior infarct, old Electronically Signed On 04-13-2024 22:19:39 EDT by Vanesa Phelps [facility] Interpretation and review of laboratory results Normal [facility] Performed by: [facility], [address] [place] [address] CLIA ID: [id number] [facility] No acute brain process identified. . CT [...] Electronically Signed Date/Time: 04/13/2024 5:18 PM EDT [facility] Radiology Study observation (narrative) [facility] Hans cervantes Radiology Study observation (narrative) [facility] Hans alth No Panel InformationOrdered By: Jorge Arce on 04-13-2024 [facility] Work Phone: TROPONIN Ion 04-13-2024 Troponin I.cardiac [Mass/Vol] ng/mL Normal <0.034 [facility] Comment on above: Result Comment: LING Gregory COMMENTS: Patients with high levels of Biotin oral intake (ie >5 mg/day) may have falsely decreased Troponin levels. Performed By: #### L [id number], [id number], [id number] ####Shop Supervisor: SADIE YANG ([phone])[facility] ([facility])[address] [place] [address] Troponin I.cardiac [Mass/Vol ]on 04-13-2024 Interpretation and review of laboratory results Normal [facility] Patients with high levels of Biotin oral intake (ie >5 mg/day) may have falsely decreased Troponin levels. [facility] Vital signsOrdered By: Betito Quintanaon on 04-13-2024 Heart rate 83 /min bpm [facility] Mempile Work Phone: 36on 04-04-2024 36 Called patient gave message no further questions. Normal [facility] 36 Let patient know that we will discuss at her appointment. Normal [facility] 36on 04-03-2024 36 Please advise. Normal [facility] 36 Name of caller: Mariella Contact phone number: [phone] Relationship to Patient: patient Provider: Johanna Moore [...] business hours to return their call: No Normal [facility] 36on 03-26-2024 36 S: Patient spoke with [facility] nurse regarding needs to be establish with the [facility] PCP States she recently moved from [facility]. B: Onset of symptoms/concern LMP vague. 03/18 HCG normal limits. States she has had blood test which tells her she is . A: states she is spotting and leaking milk from her breast. Reporting no control of her urine. 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 Advised for her concerns would need to go to the ED Patient understands care advice. No further needs at this time. Patient instructed to call back with new or worsening symptoms. Reason for Disposition [1] Nipple discharge AND [2] not bloody (e.g., clear, white, yellow, brown, green) Protocols used: Breast [id number] Normal [facility] CT Abdomen and Pelvis W cont [...] Electronically Signed Date/Time: 03/19/2024 12:29 AM EDT [employer] Patient Name: MARIELLA CHRISTINE : 1990 Exam Date/Time: 03/18/2024 23:53 Procedure: CT ABDOMEN [...] free fluid is seen within the abdomen. [facility] [employer] Rodríguez Reyes MD - 03/19/2024 Patient Name: MARIELLA CHRISTINE : 1990 Exam Date/Time: 03/18/2024 23:53 Procedure: CT ABDOMEN [...] Electronically Signed Date/Time: 03/19/2024 12:[address] [address] Abdomen and Pelvis W cont rast IVOrdered By: Rodríguez Reyes on 03-19-2024 [employer] Work Phone: CBC W Auto Differential pane l (Bld)Ordered By: Felicitas Lerma on 03-18-2024 Basophils (Bld) [#/Vol] 0.1 10*3/uL 0.0 - 0.2 10*3/uL [facility] Basophils/100 WBC (Bld) 0.7 % 0.0 - 2.0 % [facility] Eosinophils (Bld) [#/Vol] 0.1 10*3/uL 0.0 - 0.5 10*3/uL [facility] Eosinophils/100 WBC (Bld) 1.9 % 0.0 - 6.0 % [facility] Erythrocyte distribution width (RBC) [Ratio] 12.4 % 11.5 - 15.0 % [facility] Hematocrit (Bld) [Volume fraction] 38.4 % 35.0 - 47.0 % [facility] Hemoglobin (Bld) [Mass/Vol] 13.9 g/dL 11.7 - 16.0 g/dL [facility] Immature granulocytes (Bld) [#/Vol] 0.0 10*3/uL NINF - 0.1 10*3/uL [facility] Immature granulocytes/100 WBC (Bld) 0.3 % 0.0 - 2.0 % [facility] Interpretation and review of laboratory results Abnormal [facility] Lymphocytes (Bld) [#/Vol] 2.4 10*3/uL 1.0 - 4.3 10*3/uL [facility] Lymphocytes/100 WBC (Bld) 31.4 % 15.0 - 45.0 % [facility] MCH (RBC) [Entitic mass] 31.0 pg 26. 0 - 34.0 pg [facility] MCHC (RBC) [Mass/Vol] 36.2 % High 30.5 - 36.0 % [facility] MCV (RBC) [Entitic vol] 85.7 fL 77.0 - 99.0 fL [facility] Monocytes (Bld) [#/Vol] 0.8 10*3/uL 0.0 - 0.9 10*3/uL [facility] Monocytes/100 WBC (Bld) 9.9 % 5.0 - 13.0 % [facility] Neutrophils (Bld) [#/Vol] 4.2 10*3/uL 1.8 - 7.5 10*3/uL [facility] Neutrophils/100 WBC (Bld) 55.8 % 38.0 - 82.0 % [facility] Nucleated RBC/100 WBC (Bld) [Ratio] 0.0 % [facility] Platelet mean volume (Bld) [Entitic vol] 12.3 fL 9.0 - 12.7 fL [facility] Platelets (Bld) [#/Vol] 118 10*3/uL Low 140 - 440 10*3/uL [facility] RBC (Bld) [#/Vol] 4.48 10*6/uL 3.80 - 5.2 0 10*6/uL [facility] WBC (Bld) [#/Vol] 7.6 10*3/uL 3.6 - 10.7 10*3/uL [facility] CT Abdomen and Pelvis W cont rast [place] 03-18-2024 Radiology Study observation (narrative) [facility] metabolic 1998 panelon 03-18-2024 Albumin [Mass/Vol] 4.0 g/dL 3.5 - 5.0 g/dL [facility] ALP [Catalytic activity/Vol] 80 U/L 38 - 126 U/L [facility] ALT [Catalytic activity/Vol] 18 U/L 0 - 34 U/L [facility] Anion gap [Moles/Vol] 9 mmol/L 3 - 13 mmol/L [facility] AST [Catalytic activity/Vol] 24 U/L 15 - 46 U/L [facility] Bilirubin [Mass/Vol] 0.6 mg/dL 0.2 - 1 .3 mg/dL [facility] Calcium [Mass/Vol] 9.3 mg/dL 8.4 - 10. 4 mg/dL [facility] Chloride [Moles/Vol] 106 mmol/L 98 - 10 7 mmol/L [facility] CO2 [Moles/Vol] 21 mmol/L Low 22 - 30 mmol/L [facility] Creatinine [Mass/Vol] 1.07 mg/dL High 0.52 - 1.04 mg/dL [facility] GFR/1.73 sq M.predicted MDRD (S/P/Bld) [Vol rate/Area] 69.6 mL/min/{1.73_m2} - PINF [facility] Comment on above: Calculation based on the Chronic Kidney Disease Epidemiology Collaboration (CKD-EPI) equation refit without adjustment for race Glucose [Mass/Vol] 111 mg/dL High 70 - 100 mg/dL [facility] Interpretation and review of laboratory results Abnormal [facility] Potassium [Moles/Vol] 3.7 mmol/L 3.5 - 5.1 mmol/L [facility] Protein [Mass/Vol] 7.2 g/dL 6.3 - 8.2 g/dL [facility] Sodium [Moles/Vol] 137 mmol/L 135 - 145 mmol/L [facility] Urea nitrogen [Mass/Vol] 11 mg/dL 7 - 17 mg/d L [facility] Slightly Hemolyzed. Interpret K+, ALKP, AST with caution. [facility] Laboratory - Chemistry and C hemistry - challengeon 03-18-2024 HCG.beta subunit Qn Females <=5 mIU/mL [facility] Lipase [Catalytic activity/Vol] 55 U/L 23 - 300 U/L [facility] Lipase [Catalytic activity/V ol]on 03-18-2024 Interpretation and review of laboratory results Normal [facility] No Panel Informationon 03-18 Values in should [...] or monitor tumors or gestational trophoblastic disease. [facility] Mempile No Panel InformationOrdered By: Elena Rosenberg on 03-18-2024 HCG, RAPID SCREEN Not detected None Detected [facility] Urinalysis complete panel (U )Ordered By: Janette Narayanan on 03-18-2024 Bacteria LM.HPF (Urine sed) [#/Area] Negative Negative /HPF [facility] Bilirubin Ql (U) Negative Negative mg/dL [facility] Clarity (U) Extra Turbid Abnormal Clear [facility] (U) Red Abnormal Lt. Yellow [facility] Epithelial cells.squamous LM.HPF (Urine sed) [#/Area] 3-5 [facility] Glucose Ql (U) Normal Normal (<70) mg/dL [facility] Hemoglobin Ql (U) >1.0 Abnormal Negative mg/dL [facility] Hyaline casts Auto (Urine sed) [#/Area] Negative Negative /LPF [facility] Interpretation and review of laboratory results Abnormal [facility] Ketones (U) [Mass/Vol] Negative Negat pierce mg/dL [facility] Leukocyte esterase Test strip Ql (U) 75 Abnormal Negative Bill/uL [facility] Mucus LM.HPF (Urine sed) [#/Area] Few Negative /LPF [facility] Nitrite Ql (U) Negative Negative [facility] th pH (U) 5.5 [pH] 5.0 - 8.0 pH [facility] Protein (U) [Mass/Vol] 100 mg/dL Abnormal Negative [facility] RBC LM.HPF (Urine sed) [#/Area] /[HPF] Abnormal [facility] Specific gravity (U) [Rel density] 1.026 1.005 - 1.030 [facility] Urobilinogen (U) [Mass/Vol] Normal Normal (0-1) mg/dL [facility] WBC LM.HPF (Urine sed) [#/Area] 6-10 Abnormal [facility] Basic metabolic 1998 panelon 10-04-2023 Anion gap [Moles/Vol] 8 mmol/L 3 - 13 mmol/L [facility] Calcium [Mass/Vol] 9.4 mg/dL 8.4 - 10. 4 mg/dL [facility] Chloride [Moles/Vol] 102 mmol/L 98 - 10 7 mmol/L [facility] CO2 [Moles/Vol] 28 mmol/L 22 - 30 mmol/L [facility] Creatinine [Mass/Vol] 1.22 mg/dL High 0.52 - 1.04 mg/dL [facility] GFR/1.73 sq M.predicted MDRD (S/P/Bld) [Vol rate/Area] 59.5 mL/min/{1.73_m2} Low - PINF [facility] Comment on above: Calculation based on the Chronic Kidney Disease Epidemiology Collaboration (CKD-EPI) equation refit without adjustment for race Glucose [Mass/Vol] 88 mg/dL 70 - 100 mg/dL [facility] Interpretation and review of laboratory results Abnormal [facility] Potassium [Moles/Vol] 4.1 mmol/L 3.5 - 5.1 mmol/L [facility] Sodium [Moles/Vol] 138 mmol/L 135 - 145 mmol/L [facility] Urea nitrogen [Mass/Vol] 11 mg/dL 7 - 17 mg/d L [facility] CBC W Auto Differential pane l (Bld)Ordered By: Maya Lucio on 10-04-2023 Basophils (Bld) [#/Vol] 0.1 10*3/uL 0.0 - 0.2 10*3/uL [facility] Basophils/100 WBC (Bld) 1.0 % 0.0 - 2.0 % [facility] Eosinophils (Bld) [#/Vol] 0.2 10*3/uL 0.0 - 0.5 10*3/uL [facility] Eosinophils/100 WBC (Bld) 3.1 % 1.0 - 6.0 % [facility] Erythrocyte distribution width (RBC) [Ratio] 13.4 % 11.5 - 14.5 % [facility] Hematocrit (Bld) [Volume fraction] 47.8 % High 35.0 - 47.0 % [facility] Hemoglobin (Bld) [Mass/Vol] 16.3 g/dL High 11.7 - 16.0 g/dL [facility] Interpretation and review of laboratory results Abnormal [facility] Lymphocytes (Bld) [#/Vol] 2.2 10*3/uL 1.0 - 4.3 10*3/uL [facility] Lymphocytes/100 WBC (Bld) 31.6 % 20.0 - 40.0 % [facility] MCH (RBC) [Entitic mass] 30.4 pg 26. 0 - 34.0 pg [facility] MCHC (RBC) [Mass/Vol] 34.0 % 32.0 - 36.0 % [facility] MCV (RBC) [Entitic vol] 89.4 fL 80.0 - 98.0 fL [facility] [employer] [facility] Monocytes (Bld) [#/Vol] 0.7 10*3/uL 0.0 - 0.8 10*3/uL [facility] Monocytes/100 WBC (Bld) 10.2 % High 2.0 - 10.0 % [facility] Neutrophils (Bld) [#/Vol] 3.8 10*3/uL 1.8 - 7.0 10*3/uL [facility] Neutrophils/100 WBC (Bld) 54.1 % 40.0 - 80.0 % [facility] [employer] [facility] Nucleated RBC/100 WBC (Bld) [Ratio] 0.1 % [facility] Platelet mean volume (Bld) [Entitic vol] 10.7 fL 7.4 - 12.4 fL [facility] Platelets (Bld) [#/Vol] 122 10*3/uL Low 140 - 440 10*3/uL [facility] [employer] [facility] RBC (Bld) [#/Vol] 5.35 10*6/uL High 3.8 - 5.20 10*6/uL [facility] WBC (Bld) [#/Vol] 7.0 10*3/uL 3.6 - 10.7 10*3/uL [facility] [employer] [facility] CT Abdomen and Pelvis W cont rast [place] 10-04-2023 1. Mild splenomegaly. 2. Right adrenal nodule may represent adenomatous change, but indeterminate. Follow-up maybe warranted. 3. Descending colon diverticulosis without evidence of diverticulitis. Report Dictated on Electronically Signed By: Ruel Jackson MD Electronically Signed Date/Time: 10/04/2023 9:40 PM [facility] Patient Name: MARIELLA CHRISTINE : [...] repair in the epigastrium, including mesh placement. [facility] Ruel Jacskon MD - 10/04/2023 Patient Name: MARIELLA CHRISTINE [...] MD Electronically Signed Date/Time: 10/04/2023 9:40 PM [facility] Radiology Study observation (narrative) [facility] alth CT Abdomen and Pelvis W cont rast IVOrdered By: Ruel Jackson on 10-04-2023 [facility] Work Phone: Lipaseon 10-04-2023 Lipase [Catalytic activity/Vol] 43 U/L 23 - 300 U/L [facility] Lipase [Catalytic activity/V ol]on 10-04-2023 Interpretation and review of laboratory results Normal [facility] No Panel Informationon 10-04 [facility] Urinalysis complete panel (U )Ordered By: Katie Stewart on 10-04-2023 Bacteria LM.HPF (Urine sed) [#/Area] Negative Negative /HPF [facility] Bilirubin Ql (U) Negative Negative mg/dL [facility] Clarity (U) Clear Clear [facility] Color (U) Light Yellow Lt. Yellow [facility] Epithelial cells.squamous LM.HPF (Urine sed) [#/Area] 3-5 [facility] Glucose Ql (U) Normal Normal (<70) mg/dL [facility] Hemoglobin Ql (U) 0.03 mg/dL Abnormal Negative [facility] Interpretation and review of laboratory results Abnormal [facility] Ketones (U) [Mass/Vol] Negative Negat pierce mg/dL [facility] Leukocyte esterase Test strip Ql (U) Negative Negative Bill/uL [facility] Mucus LM.HPF (Urine sed) [#/Area] Few Negative /LPF [facility] Nitrite Ql (U) Negative Negative [facility] th pH (U) 7.0 [pH] 5.0 - 8.0 pH [facility] Protein (U) [Mass/Vol] Negative Negat pierce mg/dL [facility] RBC LM.HPF (Urine sed) [#/Area] 0-2 [facility] Specific gravity (U) [Rel density] 1.015 1.005 - 1.030 [facility] Urobilinogen (U) [Mass/Vol] Normal Normal (0-1) mg/dL [facility] WBC LM.HPF (Urine sed) [#/Area] 0-2 [facility] hCG, quantitative, on 10-04-2023 HCG.beta subunit Qn Females <=5 mIU/mL [facility] Values in should double every 2 to [...] or monitor tumors or gestational trophoblastic disease. [facility] .Auto Diffon 04-20-2023 Basophil, Absolute 0.0 10 3/mcL Normal 0.0-0.2 [facility] ([place]) Comment on above: Performed By: #### A SENTHIL PABLO ADIFF, CBC #### [address] [address] Basophils/100 WBC (Bld) 0.9 % Normal 0.0-2.5 A [facility] ([place]) Comment on above: Performed By: #### A SENTHIL PABLO ADIFF, CBC #### [address] [address] Eosinophil, Absolute 0.2 10 3/mcL Normal 0.0-0.4 [facility] ([place]) Comment on above: Performed By: #### A SENTHIL PABLO ADIFF, CBC #### [address] [address] Eosinophils/100 WBC (Bld) 3.4 % Normal 0.0-7.0 [facility] ([place]) Comment on above: Performed By: #### A SENTHIL PABLO ADIFF, CBC #### [address] [address] Lymphocyte, Absolute 1.6 10 3/mcL Normal 0.8-3.9 [facility] ([place] Comment on above: Performed By: #### A SENTHIL PABLO ADIFF, CBC #### [address] [address] Lymphocytes/100 WBC (Bld) 34.1 % Normal 10.0-50.0 [facility] ([place] Comment on above: Performed By: #### A SENTHIL PABLO ADIFF, CBC #### [address] [address] Monocyte, Absolute 0.5 10 3/mcL Normal 0.2-1.0 [facility] ([place]) Comment on above: Performed By: #### A SENTHIL PABLO ADIFF, CBC #### [address] [address] Monocytes/100 WBC (Bld) 11.0 % Normal 1.7-13.0 [facility] ([place]) Comment on above: Performed By: #### A SENTHIL PABLO ADIFF, CBC #### [address] [address] Neutrophils/100 WBC (Bld) 50.6 % Normal 37.0-80.0 [facility] ([place] Comment on above: Performed By: #### A SENTHIL PABLO ADIFF, CBC #### [address] [address] .GFRon 04-20-2023 GFR 61 ml/min/1.73sqm Normal [facility] ([place] Comment on above: Result Comment: GFR Population [...] By: #### L IP, GFR, CMP #### [address] [address] GFR Non- 50 ml/min/1.73sqm Normal [facility] ([place] Comment on above: Result Comment: GFR Population [...] By: #### L IP, GFR, CMP #### [place] [address] .MDWon 04-20-2023 Monocyte Distribution Width 18.64 Normal 0.00-20.00 [facility] ([place] Comment on above: Result Comment: For ED adult patients suspected of sepsis, MDW<=20.0 does not rule out sepsis or risk of sepsis Performed By: #### A SENTHIL PABLO ADIFF, CBC #### Johnny [address] [address] .NEUABSon 04-20-2023 Neutrophil, Absolute 2.4 10 3/mcL Low 2.9-6.2 [facility] ([place]) Comment on above: Performed By: #### A SENTHIL PABLO ADIFF, CBC #### Johnny [address] [address] .Urinalysis Microscopic (AO) on 04-20-2023 UA Bacteria Trace Abnormal [facility] ([place] Comment on above: Performed By: #### U A, PREGU, UAMICAO #### [address] [address] UA RBC 5-10 Abnormal None Seen [facility] ([place] Comment on above: Performed By: #### U A PREGU, UAMICAO #### [address] [address] UA RBC Casts 0-5 Abnormal [facility] ([place] Comment on above: Performed By: #### U Radha PREGU, UAMICAO #### [address] [address] UA Squam Epithelial 0-5 Abnormal None Seen [facility] ([place] Comment on above: Performed By: #### U Radha PREGU, UAMICAO #### [address] [address] UA WBC 0-5 Abnormal None Seen [facility] ([place] Comment on above: Performed By: #### CATINA GreenU UAMICAO #### [address] [address] CBCon 04-20-2023 Erythrocyte distribution width (RBC) [Ratio] 13.2 % Normal 11.5-14.5 [facility] ([place] Comment on above: Performed By: #### A SENTHIL PABLO ADIFF, CBC #### [address] [address] Hematocrit (Bld) [Volume fraction] 46.1 % Normal 37.0-47.0 [facility] ([place] Comment on above: Performed By: #### A SENTHIL PABLO ADIFF, CBC #### [address] [address] Hgb 15.7 G/dL Normal 12.0-16.0 [facility] ([place] Comment on above: Performed By: #### A SENTHIL PABLO ADIFF, CBC #### [address] [address] MCH (RBC) [Entitic mass] 29.0 pg Normal 27.0-31.2 [facility] ([place] Comment on above: Performed By: #### A SENTHIL PABLO ADIFF, CBC #### [address] [address] MCHC 34.1 G/dL Normal 33.0-37.0 [facility] ([place] Comment on above: Performed By: #### A SENTHIL PABLO ADIFF, CBC #### [address] [address] MCV (RBC) [Entitic vol] 84.9 fL Normal 80.0-94.0 A [facility] ([place] Comment on above: Performed By: #### A SENTHIL PABLO ADIFF, CBC #### [address] [address] Platelet 103 10 3/mcL Low 130-400 [facility] ([place] Comment on above: Performed By: #### A SENTHIL PABLO ADIFF, CBC #### [place] [address] Platelet mean volume (Bld) [Entitic vol] 9.5 fL Normal 7.4-10.4 [facility] ([place] Comment on above: Performed By: #### A SENTHIL PABLO ADIFF, CBC #### [address] [address] RBC 5.43 10 6/mcL High 4.20-5.40 [facility] ([place] Comment on above: Performed By: #### A SENTHIL PABLO ADIFF, CBC #### [address] [address] WBC 4.7 10 3/mcL Normal 4.6-10.8 [facility] ([place] Comment on above: Performed By: #### A SENTHIL PABLO ADIFF, CBC #### [address] [address] CMPon 04-20-2023 Albumin Level 3.9 G/dL Normal 3.5-5.0 [facility] ([place] Comment on above: Performed By: #### L IP, GFR, CMP #### [address] [address] Albumin/Globulin [Mass ratio] 1.2 {ratio} Normal 1.1-2.5 [facility] ([place] Comment on above: Performed By: #### L IP, GFR, CMP #### [address] [address] ALP [Catalytic activity/Vol] 107 U/L Normal 40-135 [facility] ([place] Comment on above: Performed By: #### L IP, GFR, CMP #### [address] [address] ALT [Catalytic activity/Vol] 23 U/L Normal 14-59 [facility] ([place] Comment on above: Performed By: #### L IP, GFR, CMP #### [address] [address] AST [Catalytic activity/Vol] 13 U/L Normal 10-40 [facility] ([place] Comment on above: Performed By: #### L IP, GFR, CMP #### [address] [address] Bili Total 0.6 mg/dL Normal 0.2-1.0 [facility] ([place] Comment on above: Result Comment: Use of this assay is not recommended for patients undergoing treatment with eltrombopag due to the potential for falsely elevated results. Performed By: #### L IP, GFR, CMP #### [address] [address] BUN/Creatinine Ratio 6 ratio Low 7-27 [facility] ([place]) Comment on above: Performed By: #### L IP, GFR, CMP #### [address] [address] Calcium [Mass/Vol] 9.0 mg/dL Normal 8.4-10.2 [facility] ([place]) Comment on above: Performed By: #### L IP, GFR, CMP #### [address] [address] Chloride [Moles/Vol] 106 mmol/L Normal 98-107 [facility] ([place] Comment on above: Performed By: #### L IP, GFR, CMP #### [address] [address] CO2 [Moles/Vol] 24 mmol/L Normal 22-29 [facility] ([place] Comment on above: Performed By: #### L IP, GFR, CMP #### [address] [address] Creatinine [Mass/Vol] 1.22 mg/dL High 0.55-1.02 [facility] ([place] Comment on above: Performed By: #### L IP, GFR, CMP #### [address] [address] Electrolyte Balance 12.0 mEq/L Normal 4.0-15.0 [facility] ([place] Comment on above: Performed By: #### L IP, GFR, CMP #### [address] [address] Globulin 3.2 G/dL Normal [facility] ([place]) Comment on above: Performed By: #### L IP, GFR, CMP #### [address] [address] Glucose [Mass/Vol] 85 mg/dL Normal 70-105 [facility] ([place]) Comment on above: Performed By: #### L IP, GFR, CMP #### [address] [address] Potassium [Moles/Vol] 4.1 mmol/L Normal 3.5-5.1 [facility] ([place]) Comment on above: Performed By: #### L IP, GFR, CMP #### [address] [address] Sodium [Moles/Vol] 142 mmol/L Normal 136-145 [facility] ([place] Comment on above: Performed By: #### L IP, GFR, CMP #### [address] [address] Total Protein 7.1 G/dL Normal 6.4-8.2 [facility] ([place] Comment on above: Performed By: #### L IP, GFR, CMP #### [place] [address] Urea nitrogen [Mass/Vol] 7 mg/dL Normal 7-18 [facility] ([place] Comment on above: Performed By: #### L IP, GFR, CMP #### [place] [address] LIPon 04-20-2023 Lipase Level 15 U/L Low 16-77 [facility] ([place] Comment on above: Performed By: #### L IP, GFR, CMP #### [place] [address] PREGUon 04-20-2023 HCG ( test) Ql (U) Negative Normal [facility] ([place] Comment on above: Performed By: #### U A, PREGU, UAMICAO #### [place] [address] test (u) int Not detected Invalid Interpretation Code [facility] ([place] Comment on above: Performed By: #### U A, PREGU, UAMICAO #### [place] [address] UAon 04-20-2023 Color (U) Yellow Normal [facility] ([place] Comment on above: Performed By: #### U A, PREGU, UAMICAO #### [place] [address] Glucose (U) [Mass/Vol] Negative Normal Negative [facility] ([place]) Comment on above: Performed By: #### U A, PREGU, UAMICAO #### [place] [id number] Ketones Ql (U) Negative Normal Negative [facility] ([place] Comment on above: Performed By: #### U A, PREGU, UAMICAO #### [place] [address] UA Appear Slightly Cloudy Abnormal Clear [facility] ([place] Comment on above: Performed By: #### U A, PREGU, UAMICAO #### [address] [address] UA Blood Large Abnormal Negative [facility] ([place] Comment on above: Performed By: #### U A, PREGU, UAMICAO #### [place] [address] UA Leuk Est Negative Normal Negative [facility] ([place] Comment on above: Performed By: #### U A, PREGU, UAMICAO #### [place] [address] UA Nitrite Negative Normal Negative [facility] ([place] Comment on above: Performed By: #### U A, PREGU, UAMICAO #### [place] [address] UA pH 6.0 Normal 5.0 - 8.0 [facility] ([place] Comment on above: Performed By: #### U A, PREGU, UAMICAO #### [place] [address] UA Protein Negative Normal Negative [facility] ([place] Comment on above: Performed By: #### U A, PREGU, UAMICAO #### [place] [address] UA Spec Grav 1.015 Normal 1.015-1.025 [facility] ([place] Comment on above: Performed By: #### U A, PREGU, UAMICAO #### [place] [address] UA Specimen Type Void Normal [facility] ([place] Comment on above: Performed By: #### U A, PREGU, UAMICAO #### [place] [address] UA Urobilinogen 0.2 E.U./dL Normal 0.2-1.0 [facility] ([place]) Comment on above: Performed By: #### U A, PREGU, UAMICAO #### [place] [id number] Urobilinogen (U) [Mass/Vol] Negative Normal Negative [facility] ([place]) Comment on above: Performed By: #### U SHELTON Garcia UAMICAO #### [facility] [address], [place] [address] XR Ribs Views and Chest PAon 02-21-2023 Normal chest and normal right ribs. Report Dictated on Electronically Signed By: Marcelo London Electronically Signed Date/Time: 02/21/2023 3:55 PM EDT [facility] Patient Name: MARIELLA CHRISTINE : 1990 [...] no evidence for fracture or bone lesion. [facility] Marcelo London MD - 02/21/2023 Patient [...] Electronically Signed Date/Time: 02/21/2023 3:55 PM EDT [facility] Radiology Study observation (narrative) Eleno Maxwell helen XR Ribs Views and Chest PAOr dered By: Marcelo London on 02-21-2023 [facility] Work Phone: UA DIP, URINE (POC)on 2021 BILIRUBIN UA (POCT) Negative Negative [facility] CLARITY UA (POCT) Clear [facility] COLOR UA (POCT) Yellow [facility] GLUCOSE UA (POCT) Negative Negative mg/dL [facility] HEMOGLOBIN/BLOOD UA (POCT) Negative Negative [facility] KETONE UA (POCT) Negative Negative mg/dL [facility] LEUKOCYTES UA (POCT) Negative Negative [facility] NITRITE UA (POCT) Negative Negative [facility] PH UA (POCT) 6.0 4.5 - 8.[address] [facility] Protein Ql (U) Negative Negative mg/dL [facility] SPECIFIC GRAVITY UA (POCT) 1.010 1.005 - 1.[address] [facility] UROBILINOGEN UA (POCT) 0.2 E.U./dL Andreea l E.U./dL [facility] HCG, Quantitative Blon 07-15 HCG, Quantitative Bl <0.6 Normal <5.0 [facility] Comment on above: Performed By: #### H CGQT #### [facility] Laboratories Routine Lab [address] [address] Vital Signs Date Time Vital Sign Value Performing Clinician Facility 08-23-2025 22:19-0400 Body temperature 98.1 [degF] Dr. Selena Robert MD Work Phone: [facility] 08-23-2025 22:19-0400 Diastolic blood pressure 78 mm[Hg] Dr. Selena Robert MD Work Phone: [facility] 08-23-2025 22:19-0400 Heart rate 83 /min Dr. Selena Robert MD Work Phone: [facility] 08-23-2025 22:19-0400 Respiratory rate 16 /min Dr. Selena Robert MD Work Phone: 8(823)961-694931 [place] [address] 08-23-2025 22:19-0400 SaO2% (BldA) [Mass fraction] 97 % Dr. Selena Robert MD Work Phone: 7(698)865-221231 [place] [address] 08-23-2025 22:19-0400 Systolic blood pressure 116 mm[Hg] Dr. Selena Robert MD Work Phone: 8(743)731-702731 [place] [address] 08-23-2025 21:06-0400 Body height 162.[address] Selena Robert MD Work Phone: 5(009)607-717431 [place] [address] 07-17-2025 18:20-0400 Body height 162.[address] Selena Robert MD Work Phone: 0(991)370-523631 [place] [address] 07-17-2025 18:20-0400 Body mass index (BMI) [Ratio] 52.7 kg/m2 Dr. Selena Robert MD Work Phone: 4(658)377-495731 [place] [address] 07-17-2025 18:20-0400 Body temperature 97.9 [degF] Dr. Selena Robert MD Work Phone: 7(005)978-253931 [place] [address] 07-17-2025 18:20-0400 Body weight 139.[address] Selena Robert MD Work Phone: 8(407)520-754131 [place] [address] 07-17-2025 18:20-0400 Diastolic blood pressure 103 mm[Hg] Dr. Selena Robert MD Work Phone: 8(350)760-098831 [place] [address] 07-17-2025 18:20-0400 Heart rate 89 /min Dr. Selena Robert MD Work Phone: 2(285)936-865831 [place] [address] 07-17-2025 18:20-0400 Respiratory rate 20 /min Dr. Selena Robert MD Work Phone: 2(200)744-041731 [place] [address] 07-17-2025 18:20-0400 SaO2% (BldA) [Mass fraction] 99 % Dr. Selena Robert MD Work Phone: 4(674)752-138131 [place] [address] 07-17-2025 18:20-0400 Systolic blood pressure 152 mm[Hg] Dr. Selena Robert MD Work Phone: 7(271)732-029131 [place] [address] 05-18-2025 14:59-0400 Body temperature 97.8 [degF] Dr. Selena Robert MD Work Phone: 2(428)969-537631 [place] [address] 05-18-2025 14:59-0400 Diastolic blood pressure 68 mm[Hg] Dr. Selena Robert MD Work Phone: 8(286)953-835131 [place] [address] 05-18-2025 14:59-0400 Heart rate 82 /min Dr. Selena Robert MD Work Phone: 4(454)695-032331 [place] [address] 05-18-2025 14:59-0400 Respiratory rate 16 /min Dr. Selena Robert MD Work Phone: 3(953)516-058331 [place] [address] 05-18-2025 14:59-0400 SaO2% (BldA) [Mass fraction] 99 % Dr. Selena Robert MD Work Phone: 8(521)163-524831 [place] [address] 05-18-2025 14:59-0400 Systolic blood pressure 122 mm[Hg] Dr. Selena Robert MD Work Phone: 3(592)959-614231 [place] [address] 05-18-2025 12:49-0400 Body height 162.[address] Selena Robert MD Work Phone: 4(551)336-662931 [place] [address] 05-18-2025 12:49-0400 Body mass index (BMI) [Ratio] 49.4 kg/m2 Dr. Selena Robert MD Work Phone: 5(495)028-640331 [place] [address] 05-18-2025 12:49-0400 Body weight 130.[address] Selena Robert MD Work Phone: 8(171)428-473131 [place] [address] 03-21-2025 20:40-0400 Diastolic blood pressure 96 mm[Hg] [facility] 03-21-2025 20:40-0400 Heart rate 83 /min [facility] 03-21-2025 20:40-0400 Respiratory rate 18 /min [facility] 03-21-2025 20:40-0400 SaO2% (BldA) [Mass fraction] 97 % [facility] 03-21-2025 20:40-0400 Systolic blood pressure 156 mm[Hg] [facility] 03-21-2025 17:47-0400 Body temperature 96.91 [degF] [facility] 03-21-2025 17:08-0400 Body height 162.6 cm [facility] 03-21-2025 17:08-0400 Body mass index (BMI) [Ratio] 46.69 kg/m2 [facility] 03-21-2025 17:08-0400 Body weight 123.38 kg [facility] 10-04-2024 14:56-0500 Body temperature 97.59 [degF] Ranulfo Elizondo MD Work Phone: [facility] 10-04-2024 14:56-0500 Diastolic blood pressure 87 mm[Hg] Ranulfo Elizondo MD Work Phone: [facility] 10-04-2024 14:56-0500 Heart rate 85 /min Ranulfo Elizondo MD Work Phone: [facility] 10-04-2024 14:56-0500 Respiratory rate 18 /min Ranulfo Elizondo MD Work Phone: [facility] 10-04-2024 14:56-0500 SaO2% (BldA) [Mass fraction] 95 % Ranulfo Elizondo MD Work Phone: [facility] 10-04-2024 14:56-0500 Systolic blood pressure 140 mm[Hg] Ranulfo Elizondo MD Work Phone: [facility] 10-04-2024 10:58-0500 Body mass index (BMI) [Ratio] 47.72 kg/m2 Ranulfo Elizondo MD Work Phone: [facility] 10-04-2024 10:58-0500 Body weight 126.1 kg Ranulfo Elizondo MD Work Phone: [facility] 08-13-2024 17:58-0400 Body temperature 98.01 [degF] Gamaliel Mo DO Work Phone: [facility] 08-13-2024 17:58-0400 Diastolic blood pressure 95 mm[Hg] Gamaliel Mo DO Work Phone: [employer] 08-13-2024 17:58-0400 Heart rate 76 /min Gamaliel Mo DO Work Phone: [facility] [employer] [facility] 08-13-2024 17:58-0400 SaO2% (BldA) [Mass fraction] 97 % Gamaliel Mo DO Work Phone: [facility] [employer] 08-13-2024 17:58-0400 Systolic blood pressure 117 mm[Hg] Gamaliel Mo DO Work Phone: [facility] 07-02-2024 11:55-0400 Body mass index (BMI) [Ratio] 47.89 kg/m2 Vanesa Saldivar DO Work Phone: [facility] [employer] [facility] 07-02-2024 11:55-0400 Body temperature 96.69 [degF] Vanesa Yariel DO Work Phone: [facility] [employer] [facility] 07-02-2024 11:55-0400 Body weight 126.55 kg Vanesa Saldivar DO Work Phone: [employer] 07-02-2024 11:55-0400 Diastolic blood pressure 95 mm[Hg] Vanesa Yariel DO Work Phone: [facility] [facility] 07-02-2024 11:55-0400 Heart rate 84 /min Vanesa Saldivar DO Work Phone: [facility] [employer] 07-02-2024 11:55-0400 Respiratory rate 20 /min Vanesa Saldivar DO Work Phone: [facility] 07-02-2024 11:55-0400 SaO2% (BldA) [Mass fraction] 97 % Vanesa Yariel DO Work Phone: [employer] 07-02-2024 11:55-0400 Systolic blood pressure 149 mm[Hg] Vanesa Yariel DO Work Phone: [facility] 07-02-2024 11:55-0400 Body height 162.6 cm Vanesa Yariel DO Work Phone: [facility] [employer] [facility] 06-22-2024 13:26-0400 Body temperature 98.2 [degF] [facility] 06-22-2024 13:26-0400 Diastolic blood pressure 90 mm[Hg] [facility] 06-22-2024 13:26-0400 Heart rate 71 /min [facility] 06-22-2024 13:26-0400 Respiratory rate 18 /min [facility] 06-22-2024 13:26-0400 SaO2% (BldA) [Mass fraction] 96 % [facility] 06-22-2024 13:26-0400 Systolic blood pressure 142 mm[Hg] [facility] 04-13-2024 21:57-0400 Body temperature 97.5 [degF] Claudette Urbano MD Work Phone: [facility] 04-13-2024 21:57-0400 Diastolic blood pressure 97 mm[Hg] Claudette Urbano MD Work Phone: [facility] 04-13-2024 21:57-0400 Heart rate 80 /min Claudette Urbano MD Work Phone: [facility] 04-13-2024 21:57-0400 Respiratory rate 16 /min Claudette Urbano MD Work Phone: [facility] 04-13-2024 21:57-0400 SaO2% (BldA) [Mass fraction] 98 % Claudette Urbano MD Work Phone: [facility] 04-13-2024 21:57-0400 Systolic blood pressure 140 mm[Hg] Claudette Urbano MD Work Phone: [facility] 03-19-2024 00:15-0400 Diastolic blood pressure 84 mm[Hg] Law Camilo MD Work Phone: [facility] 03-19-2024 00:15-0400 Heart rate 91 /min Law Camilo MD Work Phone: [facility] 03-19-2024 00:15-0400 Respiratory rate 18 /min Law Camilo MD Work Phone: [facility] 03-19-2024 00:15-0400 SaO2% (BldA) [Mass fraction] 97 % Law Camilo MD Work Phone: [facility] 03-19-2024 00:15-0400 Systolic blood pressure 132 mm[Hg] Law Camilo MD Work Phone: [facility] 03-18-2024 21:34-0400 Body temperature 98.1 [degF] Law Camilo MD Work Phone: [facility] 10-04-2023 22:14-0500 Diastolic blood pressure 60 mm[Hg] Aby Baltazar MD Work Phone: [facility] 10-04-2023 22:14-0500 Heart rate 74 /min Aby Baltazar MD Work Phone: [facility] 10-04-2023 22:14-0500 Respiratory rate 18 /min Aby Baltazar MD Work Phone: [facility] 10-04-2023 22:14-0500 SaO2% (BldA) [Mass fraction] 100 % Aby Baltazar MD Work Phone: [facility] 10-04-2023 22:14-0500 Systolic blood pressure 104 mm[Hg] Aby Baltazar MD Work Phone: [facility] 10-04-2023 14:25-0500 Body temperature 97.81 [degF] Aby Baltazar MD Work Phone: [facility] 10-04-2023 14:25-0500 Body height 162.6 cm Aby Baltazar MD Work Phone: [facility] 10-04-2023 14:25-0500 Body mass index (BMI) [Ratio] 48.92 kg/m2 Aby Baltazar MD Work Phone: [facility] 10-04-2023 14:25-0500 Body weight 129.28 kg Aby Baltazar MD Work Phone: [facility] 09-20-2022 18:47-0400 Body height 162.56 cm [facility] Work Phone: 09-20-2022 18:47-0400 Body mass index (BMI) [Ratio] 44.6 kg/m2 [facility] Work Phone: 09-20-2022 18:47-0400 Body temperature 97.9 [degF] [facility] Work Phone: 09-20-2022 18:47-0400 Body weight 117.93 kg [facility] Work Phone: 09-20-2022 18:47-0400 Diastolic blood pressure 92 mm[Hg] [facility] Work Phone: 09-20-2022 18:47-0400 Heart rate 93 /min [facility] Work Phone: 09-20-2022 18:47-0400 Respiratory rate 14 /min [facility] Work Phone: 09-20-2022 18:47-0400 SaO2% (BldA) [Mass fraction] 99 % [facility] Work Phone: 09-20-2022 18:47-0400 Systolic blood pressure 130 mm[Hg] [facility] Work Phone: 03-07-2022 14:56-0400 Body weight 135.63 kg Kylah Older [employer] Work Phone: [facility] 03-07-2022 14:56-0400 Diastolic blood pressure 80 mm[Hg] Kylah Older [employer] Work Phone: [facility] 03-07-2022 14:56-0400 Heart rate 80 /min Kylah Older [employer] Work Phone: [facility] 03-07-2022 14:56-0400 Respiratory rate 16 /min Kylah Older [employer] Work Phone: [facility] 03-07-2022 14:56-0400 Systolic blood pressure 126 mm[Hg] Kylah Older [employer] Work Phone: [facility] Encounters Encounter Date Encounter Type Care Provider Facility Start: 08-23-2025 End: 08-23-2025 Emergency department patient visit Dr. Seferino Callahan DO -Emergency Department Work Phone: Start: 07-17-2025 End: 07-17-2025 Emergency department patient visit Dr. Selena Robert MD Work Phone: -Emergency Department Work Phone: Start: 05-20-2025 End: 05-21-2025 Telephone encounter Maricarmen Bess MD Work Phone: OB/Gynecology Comment on above: New OB Start: 05-18-2025 End: 05-18-2025 Emergency department patient visit Dr. Selena Robert MD Work Phone: -Emergency Department Work Phone: Start: 03-21-2025 End: 03-21-2025 Emergency department patient visit [facility] Comment on above: Moderate left ankle sprain, initial encounter (Primary Dx) Start: 12-05-2024 End: 12-06-2024 ambulatory [facility] Start: 10-04-2024 End: 10-04-2024 Emergency department patient visit Ranulfo Elizondo MD Work Phone: [facility] Comment on above: Encounter for medica l screening examination (Primary Dx) Start: 09-12-2024 End: 09-12-2024 ambulatory Hal Scott DTR [employer] Start: 08-13-2024 End: 08-13-2024 Office outpatient visit 15 minutes Gamaliel Mo DO Work Phone: [facility] Comment on above: Viral URI with cough (Primary Dx); Acute cough; Chronic dyspnea; Muscular aches; Diffuse arthralgia; Bee sting allergy; Does not have primary care provider Start: 08-13-2024 End: 08-13-2024 ambulatory GAMALIEL [facility] Start: 07-02-2024 End: 07-02-2024 Emergency department patient visit Vanesa Saldivar DO Work Phone: [facility] Comment on above: Chest pain, unspecif ied type (Primary Dx); Dizziness Start: 06-22-2024 End: 06-22-2024 Emergency department patient visit [facility] Start: 06-09-2024 Emergency department patient visit SELENA ROBERT Facility:[facility] Start: 04-13-2024 End: 04-13-2024 Emergency department patient visit Claudette Urbano MD Work Phone: [facility] Comment on above: Syncope, unspecified syncope type (Primary Dx); Closed head injury, initial encounter Start: 03-26-2024 ambulatory Danielle Lorenzana RN [facility] Start: 03-26-2024 Patient encounter procedure Danielle Lorenzana RN [facility] Start: 03-18-2024 End: 03-19-2024 Emergency department patient visit Law Camilo MD Work Phone: [facility] Comment on above: Abdominal pain, gene ralized (Primary Dx); Adrenal adenoma, unspecified laterality; Pneumobilia Start: 10-04-2023 End: 10-04-2023 Emergency department patient visit Aby Baltazar MD Work Phone: [facility] Comment on above: Left upper quadrant abdominal pain (Primary Dx) Start: 04-20-2023 End: 04-20-2023 Emergency department patient visit DR GISSEL SAEED DO Facility: Start: 02-21-2023 End: 02-21-2023 Subsequent hospital visit by physician [facility] X-Ray Comment on above: Arrived Start: 01-10-2023 Telephone encounter Selena evangelista MD Work Phone: [facility] [place] Comment on above: Patient Update Start: 01-09-2023 Refill Selena Fitzpatrick Work Phone: [facility] [place] Comment on above: Refill Request Results Start: 09-20-2022 End: 09-20-2022 [facility] Start: 07-22-2022 Refill Kylah Bruno APRN, .CNP Work Phone: [facility] [place] Comment on above: Refill Request Start: 03-07-2022 End: 03-07-2022 Patient encounter procedure Kylah Bruno APRNJoaoKODI Work Phone: [facility] [place] Comment on above: Annual physical exam (Primary Dx); Gastroesophageal reflux disease without esophagitis; Epigastric pain; Rhinitis, unspecified type; Chronic left hip pain; Class 3 severe obesity with body mass index (BMI) of 50.0 to 59.9 in adult, unspecified obesity type, unspecified whether serious comorbidity present (HCC); Dysuria; Abnormal menstruation; Possible ; Lipid screening Procedures Date Procedure Procedure Detail Performing Clinician Start: 08-23-2025 Plain x-ray of elbow Dr Joao Robert MD Work Phone: Start: 08-23-2025 Plain x-ray of wrist Dr Joao Robert MD Work Phone: Start: 08-23-2025 Radex forearm 2 views Amari Robert MD Work Phone: Start: 07-17-2025 Urnls dip stick/tabl et reagent auto microscopy Dr. Selena Robert MD Work Phone: Start: 03-21-2025 End: 03-21-2025 Radiologic examination tibia & fibula 2 views Lois Winter PA-C Work Phone: Start: 12-05-2024 Lipid 1996 panel - S jennifer or Plasma Start: 10-04-2024 SARS-CoV-2 (COVID-19 ) Ag [Presence] in Respiratory specimen by Rapid immunoassay Walt Mckenna MD Work Phone: Start: 10-04-2024 Comprehensive metabo lic panel Walt Mckenna MD Work Phone: Start: 10-04-2024 End: 10-04-2024 Drug test def 1-7 classes Walt Mckenna MD Work Phone: Start: 10-04-2024 HCG, RAPID SERUM Walt Mckenna MD Work Phone: Start: 08-13-2024 Sars-cov-2 detection by dna/rna Gamaliel Daleisidro DO Work Phone: Start: 07-02-2024 Basic metabolic pane l calcium total Silvio Alcocerer PA-C Work Phone: Start: 07-02-2024 Radiologic exam ches t single view Silvio Rosalva PA-C Work Phone: Start: 07-02-2024 Ecg routine ecg w/le ast 12 lds trcg only w/o i&r Vanesa Saldivar DO Work Phone: Start: 06-22-2024 Ct angiography chest w/contrast/noncontrast Pravin Silvestre MD Work Phone: Start: 06-22-2024 Basic metabolic pane l calcium total Pravin Silvestre MD Work Phone: Start: 06-22-2024 SARS-COV-2, FLU A/B, AND RSV COMBO Pravin Silvestre MD Work Phone: Start: 06-22-2024 Ecg routine ecg w/le ast 12 lds trcg only w/o i&r Pravin Silvestre MD Work Phone: Start: 04-13-2024 Glucose quantitative blood xcpt reagent strip Claudette Urbano MD Work Phone: Start: 04-13-2024 Basic metabolic pane l calcium total Claudette Urbano MD Work Phone: Start: 04-13-2024 Ct cervical spine w/ o contrast material Claudette Urbano MD Work Phone: Start: 04-13-2024 Ct head/brain w/o contrast material Claudette Urbano MD Work Phone: Start: 04-13-2024 Ecg routine ecg w/le ast 12 lds trcg only w/o i&r Claudette Urbano MD Work Phone: Start: 03-18-2024 Ct abdomen & pelvis w/contrast material Minor Bartlett PA-C Work Phone: Start: 03-18-2024 Urinalysis complete panel - Urine Minor Bartlett PA-C Work Phone: Start: 03-18-2024 Urnls dip stick/tabl et reagent auto microscopy Minor Bartlett PA-C Work Phone: Start: 03-18-2024 Comprehensive metabo lic panel Minor Bartlett PA-C Work Phone: Start: 03-18-2024 HCG, RAPID SERUM Minor Bartlett PA-C Work Phone: Start: 10-04-2023 Ct abdomen & pelvis w/contrast material Yuliana Peck APRN Work Phone: Start: 10-04-2023 End: 10-04-2023 Basic metabolic panel calcium total Ranulfo Elizondo MD Work Phone: Start: 10-04-2023 Urinalysis complete panel - Urine Ranulfo Elizondo MD Work Phone: Start: 10-04-2023 Urnls dip stick/tabl et reagent auto microscopy Ranulfo Elizondo MD Work Phone: Start: 02-21-2023 Radex ribs uni w/posteroant ch minimum 3 views Criss Noyola PA-C Work Phone: Start: 09-20-2022 Radiography of ankle Start: 09-20-2022 X-ray of both feet Start: 03-07-2022 Urnls dip stick/tabl et rgnt auto w/o microscopy Kylah Bruno APRN.[employer] Work Phone: History of cholecystectomy S/P laparoscopic cholecystectomy Comment on above: Patient recovering a s expected. She is having some breakthrough pain, we discussed several strategies for how she might alter her medication regimen to improve continuous control. Her pharmacologic options for analgesics are limited secondary to her acetaminophen sensitivity. Her abdominal exam is reassuring and she states that her nausea/vomiting are not concerning enough to warrant prescription of an antiemetic.Pathology was reviewed from patient's operative case and was consistent with chronic cholecystitis with cholelithiasis. Plan of Treatment Date Care Activity Detail Author Start: 2063 RSV Immunization for Adults (1 - 1-dose 75+ series) RSV Immunization for Adults (1 - 1-dose 75+ series) [facility] Start: 2048 RSV Immunization age d 60 or older (1 - 1-dose 60+ series) RSV Immunization aged 60 or older (1 - 1-dose 60+ series) [facility] Start: 2038 Zoster Vaccines (1 of 2) Zoste r Vaccines (1 of 2) [facility] Start: 12-05-2029 Lipid panel Lipid Panel [facility] Start: 08-23-2025 [facility] Start: 07-28-2025 Influenza vaccination Influenz a Vaccine (Season Ended) [facility] Start: 07-17-2025 [facility] Start: 06-05-2025 Depression Monitoring Depression [facility] Start: 05-18-2025 [facility] Start: 07-28-2024 COVID-19 Vaccine ( season) COVID-19 Vaccine ( season) [facility] Start: 07-28-2024 Covid-19 Vaccine ( season) Covid-19 Vaccine ( season) [facility] Start: 07-28-2024 Influenza vaccination S [facility] Start: 05-02-2024 End: 05-02-2024 Patient encounter procedure 05/02/2024 1:20 PM EDT Office Visit [facility] [address] [facility] [address] [place] [id number] Johanna Bates, HIDE PASTER - [employer] [address] [facility] [address] [place] [id number] [facility] Start: 07-28-2023 COVID-19 Vaccine ( season) COVID-19 Vaccine ( season) [facility] Start: 07-28-2023 Influenza vaccination [facility] Start: 03-07-2023 COVID-19 VACCINE (3 - Booster) COVID-19 VACCINE (3 - Booster) [facility] Comment on above: Postponed from 07/16 (Declined at this time) Postponed from 04/10 (Declined at this time) Start: 03-07-2023 HEPATITIS C SCREENING HEPATITIS C [facility] Comment on above: Postponed from 04/18 (Declined at this time) Start: 03-07-2023 HIV SCREENING HIV SCREENING [facility] Comment on above: Postponed from 04/18 (Declined at this time) Start: 03-07-2023 HPV TESTING HPV TESTING [facility] Comment on above: Postponed from 04/18 (Declined at this time) Start: 03-07-2023 PAP TESTING PAP TESTING [facility] Comment on above: Postponed from 04/18 (Declined at this time) Start: 03-07-2023 Urine microalbumin profile DTA P,TDAP,TD (1 - Tdap) [facility] Comment on above: Postponed from 04/18 (Declined at this time) Start: 02-06-2023 End: 04-08-2023 Thyrotropin [Units/volume] in Serum or Plasma TSH BLD Lab Routine Abnormal TSH Expected: 02/06/2023 (Approximate), Expires: 04/08/2023 [facility] Work Phone: Comment on above: Expected: 02/06/2023 (Approximate), Expires: 04/08/2023 Start: 02-06-2023 End: 04-08-2023 Thyroxine (T4) free [Mass/volume] in Serum or Plasma T4 FREE/FREE THYROX Lab Routine Abnormal TSH Expected: 02/06/2023 (Approximate), Expires: 04/08/2023 [facility] Work Phone: Comment on above: Expected: 02/06/2023 (Approximate), Expires: 04/08/2023 Start: 02-06-2023 End: 04-08-2023 Triiodothyronine (T3) [Mass/volume] in Serum or Plasma T3 BLD Lab Routine Abnormal TSH Expected: 02/06/2023 (Approximate), Expires: 04/08/2023 [facility] Work Phone: Comment on above: Expected: 02/06/2023 (Approximate), Expires: 04/08/2023 Start: 07-28-2022 Influenza vaccination [facility] Start: 03-07-2022 End: 05-07-2022 CBC W Auto Differential panel - Blood CBC + DIFF Lab Routine Annual physical exam Expected: 03/07/2022, Expires: 05/07/2022 [facility] Work Phone: Comment on above: Expected: 03/07/2022 , Expires: 05/07/2022 Start: 03-07-2022 End: 05-07-2022 Comprehensive metabolic 2000 panel - Serum or Plasma COMP METABOLIC PANEL Lab Routine Annual physical exam Lipid screening Class 3 severe obesity with body mass index (BMI) of 50.0 to 59.9 in adult, unspecified obesity type, unspecified whether serious comorbidity present (HCC) Expected: 03/07/2022, Expires: 05/07/2022 [facility] Work Phone: Comment on above: Expected: 03/07/2022 , Expires: 05/07/2022 Start: 03-07-2022 End: 05-07-2022 LIPID PANEL BASIC LIPID PANEL BASIC Lab Routine Lipid screening Class 3 severe obesity with body mass index (BMI) of 50.0 to 59.9 in adult, unspecified obesity type, unspecified whether serious comorbidity present (HCC) Expected: 03/07/2022, Expires: 05/07/2022 [facility] Work Phone: Comment on above: Expected: 03/07/2022 , Expires: 05/07/2022 Start: 04-10-2021 COVID-19 VACCINE (3 - Booster) COVID-19 VACCINE (3 - Booster) [facility] Start: 04-10-2021 COVID-19 Vaccine (3 - Moderna series) COVID-19 Vaccine (3 - Moderna series) [facility] Start: 2018 HPV TESTING HPV TESTING [facility] Start: 2018 Screening for malign ant neoplasm of cervix [facility] Start: 2009 PAP TESTING PAP TESTING [facility] Start: 2009 Screening for malign ant neoplasm of cervix [facility] Start: 2007 DTaP/Tdap/Td Vaccine s (1 - Tdap) DTaP/Tdap/Td Vaccines (1 - Tdap) [facility] Start: 2007 Hepatitis B Vaccine (1 of 3 - 19+ 3-dose series) Hepatitis B Vaccine (1 of 3 - 19+ 3-dose series) [facility] Start: 2007 Hepatitis B Vaccines (1 of 3 - 19+ 3-dose series) Hepatitis B Vaccines (1 of 3 - 19+ 3-dose series) [facility] Start: 2007 Pneumococcal Vaccine : Pediatrics (0 to 5 Years) and At-Risk Patients (6 to 49 Years) (1 of 2 - PCV) Pneumococcal Vaccine: Pediatrics (0 to 5 Years) and At-Risk Patients (6 to 49 Years) (1 of 2 - PCV) [facility] Start: 2007 Urine microalbumin profile [facility] Start: 2006 Hepatitis C screening Hepatitis C [facility] Start: 2006 HEPATITIS C SCREENING HEPATITIS C [facility] Start: 2006 HIV SCREENING HIV SCREENING [facility] Start: 2006 HIV screening HIV Screening [facility] Start: 2001 Varicella vaccination Varicell a Vaccines (1 of 2 - 13+ 2-dose series) [facility] Start: 2000 Depression Monitoring Depression [facility] Start: 2000 [facility] Start: 1994 Pneumococcal Vaccine : Pediatrics (0 to 5 Years) and At-Risk Patients (6 to 64 Years) (1 - PCV) Pneumococcal Vaccine: Pediatrics (0 to 5 Years) and At-Risk Patients (6 to 64 Years) (1 - PCV) [facility] Start: 1994 Pneumococcal Vaccine : Pediatrics (0 to 5 Years) and At-Risk Patients (6 to 64 Years) (1 of 2 - PCV) Pneumococcal Vaccine: Pediatrics (0 to 5 Years) and At-Risk Patients (6 to 64 Years) (1 of 2 - PCV) [facility] Start: 1989 MMR Vaccines (1 of 1 - Standard series) MMR Vaccines (1 of 1 - Standard series) [facility] Start: 1989 Varicella vaccination Varicell a Vaccines (1 of 2 - 2-dose childhood series) [facility] Start: 1988 COVID-19 Vaccine (#1) COVID-19 Vacci ne (#1) [facility] Start: 1988 HEPATITIS B (1 of 3 - 3-dose series) HEPATITIS B (1 of 3 - 3-dose series) [facility] Start: 1988 Hepatitis B Vaccines (1 of 3 - 3-dose series) Hepatitis B Vaccines (1 of 3 - 3-dose series) [facility] Start: 1988 HIV screening HIV Screening [facility] Start: 1988 Lipid panel Lipid Panel [facility] End: 06-22-2024 ECG 12 lead ECG 12 lead CV ECG STAT Once for 1 Occurrences starting 06/22/2024 until 06/22/2024 [facility] Work Phone: Comment on above: Once for 1 Occurrenc es starting 06/22/2024 until 06/22/2024 Patient Education [facility] Work Phone: Patient referral [facility] Work Phone: Urine test visual color cmprsn meths HCG QUAL UR B/O Lab Routine Possible Ordered: 03/07/2022 [facility] Work Phone: Comment on above: Ordered: 03/07/2022 End: 10-04-2023 US scan of abdominal aorta [facility] Work Phone: Comment on above: Once for 1 Occurrenc es starting 10/04/2023 until 10/04/2023 End: 04-06-2023 XR HIP GENERAL 3V PELV/AP/LAT LEFT XR HIP GENERAL 3V PELV/AP/LAT LEFT Radiology Routine Chronic left hip pain 1 Occurrences starting 03/07/2022 until 04/06/2023 [facility] Work Phone: Comment on above: 1 Occurrences starti ng 03/07/2022 until 04/06/2023 [facility] Immun[facility] Immunization Date Immunization Notes Care Provider Camilla wu 02-13-2021 Covid (Moderna) [facility] 01-25-2021 Covid (Moderna) [facility] Payers Date Payer Category Payer Private Health Insurance AETJAMIA TORRES QHP EXCHANGE [id number] 2024-Present [phone] [address] [place] [address] Exchange Plan [id number] 2024 Private Health Insurance [facility] [id number] 2023 Self-pay [id number] 2023 Unknown SUZANNE DAVIS EXCHANGE [id number] 2023-Present [address] [place] [address] Exchange Plan [id number] 2022 Medicaid HMO [employer] ODM [id number] 2016 Medicaid [id number] 2016 Unknown [employer] [id number] 2016 Medicaid [employer] [id number] 2016-Present [phone] [address] [place] [address] Medicaid [id number] 2016 Medicaid [id number] 1988 Unknown [id number] Unknown [id number] Unknown [id number] Unknown [id number] Social History Date Type Detail Facility Start: 08-27-2016 End: 03-07-2022 Tobacco smoking status VTIS Ex-smoker [facility] Work Phone: Start: 02-14-2021 End: 02-14-2022 History of tobacco use Current smoker [facility] Work Phone: Start: 08-27-2016 End: 06-10-2024 Cigarettes smoked current (pack per day) - Reported 1.[address] [facility] Start: 08-27-2016 End: 03-07-2022 Tobacco use and exposure Smokeless tobacco non-user [facility] Work Phone: Start: 03-07-2022 Alcohol intake Current non-drinker of alcohol (finding) [facility] Start: 1990 Sex Assigned At Not on file [facility] Start: 02-18-2022 End: 02-28-2022 Exposure to SARS-CoV-2 (event) Unable to assess [facility] Work Phone: Start: 02-14-2021 End: 02-14-2022 History of tobacco use Cigarette Smoker [facility] Work Phone: Start: 09-20-2022 Tobacco smoking status VTIS Unknown if ever smoked [facility] Work Phone: Start: 07-27-2020 Rare [facility] Start: 07-27-2020 None [facility] Start: 07-27-2020 Alone [facility] Start: 08-16-2019 Cigarettes [facility] Start: 1990 Sex Assigned At Female [facility] Start: 02-21-2023 End: 08-23-2025 Tobacco smoking status NHIS Smokes tobacco daily [facility] [id number] Start: 02-21-2023 End: 12-05-2024 Alcohol intake Ex-drinker (finding) [facility] Start: 02-21-2023 Alcohol Comment sober since nov 2022 [facility] Start: 02-11-2023 End: 02-21-2023 Exposure to SARS-CoV-2 (event) Not sure [facility] Start: 10-04-2023 End: 06-10-2024 Alcohol Use Disorder Identification Test - Consumption [AUDIT-C] [facility] How often to you hav e a drink containing alcohol? Never [facility] How many standard dr inks containing alcohol do you have on a typical day? Patient does not drink [facility] Start: 02-21-2023 Sex Female (finding) [facility] (I/We) worried cristy er (my/our) food would run out before (I/we) got money to buy more. Often true [facility] The food that (I/we) bought just didn't last, and (I/we) didn't have money to get more. Sometimes true [facility] Medical Equipment Procedure Code Equipment Code Equipment Original Text Equipment Identifier Dates Total cholecystectomy with exploration of common bile duct SUPERVISOR PRESS ROOM,CLIP 5MM LIGAMAX FDA Start: 07-09-2021 Total cholecystectomy with exploration of common bile duct SUPERVISOR PRESS ROOM,CLIP 5MM LIGAMAX FDA Start: 07-09-2021 Total cholecystectomy with exploration of common bile duct SUPERVISOR PRESS ROOM,CLIP 5MM LIGAMAX FDA Start: 07-09-2021 Total cholecystectomy with exploration of common bile duct SUPERVISOR PRESS ROOM,CLIP 5MM LIGAMAX FDA Start: 07-09-2021 ERCP (endoscopic retrograde cholangiopancreatograph y) RX STENT/10 X 5CM FDA Start: 07-10-2021 ERCP (endoscopic retrograde cholangiopancreatograph y) RX STENT/10 X 5CM FDA Start: 07-10-2021 ERCP (endoscopic retrograde cholangiopancreatograph y) RX STENT/10 X 5CM FDA Start: 07-10-2021 ERCP (endoscopic retrograde cholangiopancreatograph y) RX STENT/10 X 5CM FDA Start: 07-10-2021 Functional Status Date Assessment Result Facility 06-19-2015 Are you deaf, or do you have serious difficulty hearing Yes 06/19/2015 7:37 AM EDT Андрей Lopez LPN Yes [facility] 06-19-2015 Are you blind, or do you have serious difficulty seeing, even when wearing glasses No 06/19/2015 7:37 AM EDT Андрей Lopez LPN No [facility] 06-19-2015 Do you have serious difficulty walking or climbing stairs No 06/19/2015 7:37 AM EDT Андрей Lopez LPN No [facility] 06-19-2015 Do you have difficul ty dressing or bathing No 06/19/2015 7:37 AM EDT Андрей Lopez LPN No [facility] 06-19-2015 Because of a physica l, mental, or emotional condition, do you have difficulty doing errands alone such as visiting a physician's office or shopping Yes 06/19/2015 7:37 AM EDT Андрей Lopez LPN Yes [facility] Mental Status Date Assessment Result Facility 06-19-2015 Because of a physica l, mental, or emotional condition, do you have serious difficulty concentrating, remembering, or making decisions Yes 06/19/2015 7:37 AM EDАндрей Solis LPN Yes [facility] Clinical Notes 03-07-2022 to 08-23-2025 Note Date & Type Note Facility 08-23-2025 Discharge summary [facility] 08-23-2025 Radiology Diagnostic study note [facility] Services [address] [place], [place] [address] Wrist min 3 Views MR#: [id number] Acct: [id number] Name: MARIELLA CHRISTINE Rep #: [id number] : 1990 F 35 From: Mayank Medellin MD PCP: Dr. Selena Robert MD Status: REG E R Study:Wrist min 3 Views Date of Exam: Exam# [id number] Ordering Dr: Isaias Callahan DO PROCEDURE: RIGHT WRIST MIN 3 VIEWS; FOREARM 2 VIEWS 08/23/2025 REASON FOR EXAM: FALL TECHNIQUE: Procedure Code: RADWR; RADFA Modality: DX Procedure: WRIST MIN 3 VIEWS; FOREARM 2 VIEWS Laterality: Right COMPARISON: None. FINDINGS: No acute fracture or dislocation. Alignment is anatomic. Preserved joint spaces.No aggressive osseous lesion. No appreciable soft tissue swelling or radiopaque foreign body. RAD/Wrist min 3 Views IMPRESSION: No acute fracture or dislocation. Reading Location: [facility] CC: Dr. Selena Robert MD; Dr. Seferino Callahan DO ~ Computer Security Specialist: Signed [facility] 08-23-2025 Radiology Diagnostic study note [facility] [address] [place] [address] Forearm 2 Views MR#: [id number] Acct: [id number] Name: MARIELLA CHRISTINE Rep #: [id number] : 1990 F 35 From: Mayank Medellin MD PCP: Dr. Selena Robert MD Status: REG E R Study:Forearm 2 Views Date of Exam: 07/29 06/20 Exam# [id number] Ordering Dr: Isaias Callahan DO PROCEDURE: RIGHT WRIST MIN 3 VIEWS; FOREARM 2 VIEWS 08/23/2025 REASON FOR EXAM: FALL TECHNIQUE: Procedure Code: RADWR; RADFA Modality: DX Procedure: WRIST MIN 3 VIEWS; FOREARM 2 VIEWS Laterality: Right COMPARISON: None. FINDINGS: No acute fracture or dislocation. Alignment is anatomic. Preserved joint spaces.No aggressive osseous lesion. No appreciable soft tissue swelling or radiopaque foreign body. RAD/Forearm 2 Views IMPRESSION: No acute fracture or dislocation. Reading Location: [facility] CC: Dr. Selena Robert MD; Dr. Seferino Callahan DO ~ Computer Security Specialist: Signed [facility] 08-23-2025 Radiology Diagnostic study note [facility] [address] [place], [place] [address] Elbow min 3 Views MR#: [id number] Acct: [id number] Name: MARIELLA CHRISTINEE Rep #: [id number] : 1990 F 35 From: Mayank Medellin MD PCP: Dr. Selena Robert MD Status: REG E R Study:Elbow min 3 Views Date of Exam: Exam# [id number] Ordering Dr: Isaias Callahan DO PROCEDURE: RIGHT ELBOW MIN 3 VIEWS 08/23/2025 REASON FOR EXAM: FALL TECHNIQUE: Procedure Code: ZAFAR Modality: DX Procedure: ELBOW MIN 3 VIEWS Laterality: Right COMPARISON: None. FINDINGS: No acute fracture or dislocation. Alignment is anatomic. Preserved joint spaces. No joint effusion. No aggressive osseous lesion. No marked soft tissue swelling or radiopaque foreign body. RAD/Elbow min 3 Views IMPRESSION: No acute fracture or dislocation. Reading Location: [id number] CC: Dr. Selena Robert MD; Dr. Seferino Callahan DO ~ Computer Security Specialist: Signed [facility] 08-23-2025 Discharge summary Note Date/Time August 23, 2025 10:17pm [facility] Medical Records Department [address] [place] [id number] Emergency Department Summary 08/23/25 MR#: [id number] Acct: [id number] Name: MARIELLA CHRISTINE Rep #:[id number] : 1990 35 From: Seferino Callahan DO PCP: Dr. Selena Robert MD Status:REG E R Location: ED HPI History of Present Illness HPI Narrative: Patient is a 35-year-old female with past medical history of depression, schizophrenia, bipolar 1 disorder, seizures, hypertension, GERD, IBS, history of right humeral fracture who presents to the emergency department with a chief complaint of right wrist pain. According the patient she states that her motheropened the car door and she fell out of it landed on her right arm and she states that she feels like she messed up her right wrist. She states that her arm pain up by her shoulder where has been broken previously is always in pain and this is not new she states that she does not have any pain anywhere else. States that she did not hit her head she did not pass out Chief Complaint: [facility] Medical History Depression Choledocholithiasis Suicidal thoughts Memory loss Schizophrenia Bipolar 1 disorder Seizures Hypertension GERD (gastroesophageal reflux disease) IBS (irritable bowel syndrome) Hypocalcemia Neuropathy Anxiety and depression History of substance abuse Asthma Arthritis Seasonal allergies History of alcohol abuse Home Medications ?Medication ?Instructions ?Recorded ?Last Taken ?Type omeprazole 20 mg capsule,delayed 20 mg PO DAILY GERD 0 03/10/18 09/11/20 History release haloperidol 5 mg tablet 5 mg PO DAILY psych 06/15/19 08/05/21 08:30 History albuterol sulfate 90 mcg/actuation 2 puff inhalation Q 6H PRN 11/25/20 Unknown History aerosol inhaler (Ventolin HFA) Shortness Of Breath folic acid 1 mg tablet 1 mcg PO DAILY supplement 07/08/21 History [id number] 3.3 4 drp LEFT EAR TID 7 d ays #10 mL 06/07/21 Unknown Rx mg-3 mg-10 mg-0.5 mg/mL ear drops,susp (Cortisporin-TC) trazodone 100 mg tablet 100 mg PO QHS sleep 07/08/21 07/08/21 History haloperidol decanoate 50 mg/mL 50 mg IM QMONTH psych 0 07/09/21 06/27/21 History intramuscular solution ibuprofen 400 mg tablet 400 mg PO Q4H PRN PRN Pain 1 -10 Or 07/10/21 Unknown Rx Fever #0 tabs oxycodone 5 mg tablet 5 - 10 mg (1 - 2 x 5 mg) PO Q6H 07/10/21 Unknown Rx PRN pain 5 days #20 tabs Allergy/AdvReac Type Severity Reaction Status Date / Time Bleach (Sodium Hypochlorite) Allergy Mild rash Verified 08/23/25 21:05 acetaminophen Allergy breaks Verified 08/23/25 21:05 out in hives and throat swells shut bacitracin Allergy Unknown Verified 08/23/25 21:05 Latex, Natural Rubber Allergy Rash Verified 08/23/25 21:05 Penicillins Allergy Unknown Verified 08/23/25 21:05 Family History Aunt Diabetes Father Myocardial infarction, Onset Age: 50 Grandmother Myocardial infarction, Onset Age: 70 Other Alcoholism Anxiety and depression Arthritis Asthma Breast cancer CVA (cerebral vascular accident) Cancer Colon cancer Heart disease Hyperlipemia Hypertension Kidney disease Liver disease Osteoporosis Thyroid disorder Surgical History S/P ERCP S/P laparoscopic cholecystectomy History of removal of cyst History of hernia repair History of breast biopsy Social History Smoking Status: Current every day smoker tobacco type: cigarettes and e-cigarettes Tobacco: How many years used: 22 alcohol intake: current substance use type: marijuana what type of physical activity do you participate in: walking and bicycling ROS ROS ED ROS Narrative Constitutional: Denies any fevers, chills Neurological: Denies any numbness or tingling Musculoskeletal: Complains of right wrist pain as noted above Skin: Denies any rashes or lesions EXAM Physical Exam Narrative Exam Narrative: General: Patient is lying in bed rest comfortably did not appear to be in acute distress Head: Atraumatic, normocephalic Eyes: PERRL bilaterally, EOMI bilaterally, no conjunctival injection noted Neck: Soft, supple, trachea midline Cardiovascular: Regular rate and rhythm Musculoskeletal: Patient has tenderness to palpation over the right elbow, and the right wrist region although bony prominence palpated joints taken the full range of motion no pain elicited Extremities: Radial pulses +2/4 in the right upper extremity Neurological: Patient following commands that she was at [facility] the year is 2024 Skin: Warm, dry, intact Const Vital Signs: 08/23/25 21:06 Temperature 98.6 F Temperature Source Oral Pulse Rate 95 Respiratory Rate 18 Blood Pressure 130/98 H Blood Pressure Mean 108 Pulse Ox 97 Oxygen Delivery Method Room Air MDM MDM MDM Narrative Medical decision making narrative: Patient is a 35-year-old female who presents to the emergency department the chief complaint of right wrist pain after a fall out of a car. On the differential diagnose includes but limited to distal radius fracture, ulnar fracture, wrist sprain. Once workup is obtained reviewed she will be reevaluated. Patient is x-ray of the wrist reviewed by myself by radiology showed no acute fracture or dislocation. Patient's forearm x-ray reviewed by myself I radiologyshowed no acute fracture or dislocation. Patient elbow x-ray reviewed by myselfand by radiology showed no acute fracture or dislocation. Discussed results with the patient she would like to go home at this point time. She is vies return with worsening symptoms or any concerns. She is agreeable this plan all question concerns answered she is discharged home in stable condition. Patient is vies use Tylenol ibuprofen [id number] for pain control. Discharge Plan Triage Chief Complaint: Upper Extremity Injury ED Provider: Seferino Callahan Dx/Rx/DC Orders Clinical Impression: Anxiety and depression, IBS (irritable bowel syndrome), Seizures, Right wrist pain, Fall Prescriptions: No Action albuterol sulfate [Ventolin HFA] 90 mcg/actuation HFA aerosol inhaler 2 puff INHALATION Q6H PRN (Reason: Shortness Of Breath) omeprazole 20 MG capsule 20 mg PO DAILY haloperidol 5 tablet 5 mg PO DAILY folic acid 1 mg tablet 1 mcg PO DAILY Cortisporin-TC 3.3-3-10-0.5 mg/mL drops,suspension 4 drp LEFT EAR TID 7 Days Qty: 10 0RF trazodone 100 mg tablet 100 mg PO QHS haloperidol decanoate 50 mg/mL solution 50 mg IM QMONTH ibuprofen 400 mg Tablet 400 mg PO Q4H PRN PRN (Reason: Pain 1-10 Or Fever) Qty: 0 0RF oxycodone 5 mg tablet 5 - 10 mg PO Q6H PRN (Reason: pain) 5 Days Qty: 20 0RF Primary Care Provider: Selena Robert Referrals: Selena Robert MD [Primary Care Provider, Internal Medicine] Activity Restrictions/Additional Instructions: Your x-rays did not show any acute broken bones. Ice, rotate Tylenol and ibuprofen [id number] for pain control. Follow-up your doctor in outpatient setting. Return with worsening symptoms or any concerns Print Language: Andorran Disposition Disposition: Home, Self Care What to do if you have Problems For any increased pain, shortness of breath, bleeding, nausea or vomiting, chestpain, or any unexpected problems, contact your Primary Care Provider. Call [facility] ([phone]) or report to the closest Emergency Room. Call 911 if necessary. 08/23/25 8152 <Electronically signed by Seferino Callahan DO> Cosigner Signature (if applicable): CC: Dr. Selena Robert MD ~ Signed [facility] Work Phone: 1([phone] 773-231308-21-2025 Discharge summary [facility] Medical Records Department [address] [place] [address] Emergency Department Summary 07/17/25 MR#: [id number] Acct: [id number] Name: MARIELLA CHRISTINE Rep #:[id number] : 1990 35 From: Conor Figueredo MD PCP: Dr. Selena Robert MD Status:REG E R Location: ED HPI HPI - Female History of Present Illness Chief Complaint: Informant: patient and family Narrative Narrative: 35-year-old female states for the past 3 days she has had some perineal/vaginal discomfort so she has been sticking her finger in her vagina and feeling that itis sore. She states her last normal menstrual cycle was 8 months ago and she has had several urine and blood tests that were positive for . She states she is from [place], which is where her OB is. She states she last had an ultrasound in April and does not remember what they said about how far along she is. She states she is a G4, by miscarriage. She denies any fevers, chills, nausea, vomiting, diarrhea, she has some mild dysuria and some urinary frequency but no hematuria, along with some mild pelvic discomfort. No vaginal discharge she denies having any vaginal bleeding recently. She states before a month ago she wasregular. She states she was recently kicked out of her livingsituation so she came down here to [facility]. [facility] Medical History Depression Choledocholithiasis Suicidal thoughts Memory loss Schizophrenia Bipolar 1 disorder Seizures Hypertension GERD (gastroesophageal reflux disease) IBS (irritable bowel syndrome) Hypocalcemia Neuropathy Anxiety and depression History of substance abuse Asthma Arthritis Seasonal allergies History of alcohol abuse Home Medications ?Medication ?Instructions ?Recorded ?Last Taken ?Type omeprazole 20 mg capsule,delayed 20 mg PO DAILY GERD 0 03/10/18 09/11/20 History release haloperidol 5 mg tablet 5 mg PO DAILY psych 06/15/19 08/05/21 08:30 History albuterol sulfate 90 mcg/actuation 2 puff inhalation Q 6H PRN 11/25/20 Unknown History aerosol inhaler (Ventolin HFA) Shortness Of Breath folic acid 1 mg tablet 1 mcg PO DAILY supplement 07/08/21 History [id number]-[id number]-HQ-thonzonm 3.3 4 drp LEFT EAR TID 7 d ays #10 mL 06/07/21 Unknown Rx mg-3 mg-10 mg-0.5 mg/mL ear drops,susp (Cortisporin-TC) trazodone 100 mg tablet 100 mg PO QHS sleep 07/08/21 07/08/21 History haloperidol decanoate 50 mg/mL 50 mg IM QMONTH psych 0 07/09/21 06/27/21 History intramuscular solution ibuprofen 400 mg tablet 400 mg PO Q4H PRN PRN Pain 1 -10 Or 07/10/21 Unknown Rx Fever #0 tabs oxycodone 5 mg tablet 5 - 10 mg (1 - 2 x 5 mg) PO Q6H 07/10/21 Unknown Rx PRN pain 5 days #20 tabs Allergy/AdvReac Type Severity Reaction Status Date / Time Bleach (Sodium Hypochlorite) Allergy Mild rash Verified 07/17/25 18:27 acetaminophen Allergy breaks Verified 07/17/25 18:27 out in hives and throat swells shut bacitracin Allergy Unknown Verified 07/17/25 18:27 Latex, Natural Rubber Allergy Rash Verified 07/17/25 18:27 Penicillins Allergy Unknown Verified 07/17/25 18:27 Family History Aunt Diabetes Father Myocardial infarction, Onset Age: 50 Grandmother Myocardial infarction, Onset Age: 70 Other Alcoholism Anxiety and depression Arthritis Asthma Breast cancer CVA (cerebral vascular accident) Cancer Colon cancer Heart disease Hyperlipemia Hypertension Kidney disease Liver disease Osteoporosis Thyroid disorder Surgical History S/P ERCP S/P laparoscopic cholecystectomy History of removal of cyst History of hernia repair History of breast biopsy Social History Smoking Status: Current every day smoker tobacco type: cigarettes and e-cigarettes Tobacco: How many years used: 22 alcohol intake: current substance use type: marijuana what type of physical activity do you participate in: walking and bicycling ROS ROS ED Constitutional Constitutional ED: Denies chills or fever(s) Eyes Eyes: Denies change in vision or diplopia ENT ENT ED: Denies rhinorrhea or sore throat Cardiovascular Cardiovascular: Denies chest pain or palpitations Respiratory/Chest Respiratory/Chest: Denies cough or dyspnea Gastrointestinal Gastrointestinal: Reports abdominal pain; Denies diarrhea, nausea or vomiting Genitourinary Genitourinary ED: Reports as per HPI, dysuria and urinary frequency; Denies hematuria Musculoskeletal Musculoskeletal: Denies back pain or neck pain Integumentary Denies abscess or rash Neurologic Neurologic: Denies headache(s), paresthesias or weakness Psychiatric Psychiatric: Denies anxiety or suicidal thoughts EXAM Physical Exam Const Vital Signs: 07/17/25 18:20 Temperature 97.9 F Temperature Source Temporal Pulse Rate 89 Respiratory Rate 20 H Blood Pressure 152/103 H Blood Pressure Mean 119 Pulse Ox 99 Oxygen Delivery Method Room Air Positive well nourished and well developed General Appearance ED: well developed and NAD HEENT Reports moist mucous membranes normocephalic and atraumatic Eyes PERRL and EOMs intact bilaterally Neck full ROM and supple Resp normal respiratory effort and clear to auscultation bilaterally Cardio regular rate, regular rhythm and no murmurs GI non-tender and non-distended GI Narrative: morbidly obese Auscultation: normoactive bowel sounds Palpation: soft Back/Spine no CVA tenderness General Back: other FROM Extremity normal to inspection General Extremety ED: Negative for edema, pulses abnormal or tenderness General Extremity: Negative for edema or pulses abnormal Neuro oriented x3, CN's II-XII intact bilaterally and no sensory deficits noted Sensorium / Orientation: awake and alert Motor Exam: strength 5/5 throughout Skin no rashes or lesions noted and no wounds MDM MDM MDM Narrative Medical decision making narrative: Given patient's history I started with doing a bedside ultrasound. Throughout the pelvis, I see no obvious signs of a . I see a small area behind the bladder that may be endometrium/uterus. It is difficult to tell, limited bybody habitus, there may be a double decidual sign, and if this isthen the gestational sac is consistent with a 6W6D . There is no heartbeat detectable. Unclear if this is truly a or not, I sent for aurine test and urinalysis. It is normal and her is negative. Patient is reassured, discharged home to follow-up with herfamily doctor or program director substance abuse. Lab Data Attestation: I reviewed the patient's lab results. Labs: Laboratory Results - last 24 hr 07/17/25 19:50 Urine Color Straw Urine Clarity Clear Urine pH 6.0 Ur Specific [place] 1.015 Urine Protein 15 H Urine Glucose (UA) Normal Urine Ketones Negative Urine Occult Blood Negative Urine Nitrite Negative Urine Bilirubin Negative Urine Urobilinogen Normal Ur Leukocyte Esterase Negative Urine Test Negative Discharge Plan Triage Chief Complaint: ED Provider: Conor Figueredo Dx/Rx/DC Orders Clinical Impression: Perineal pain in female, Urinary frequency, Amenorrhea Instructions: ED Amenorrhea Prescriptions: No Action albuterol sulfate [Ventolin HFA] 90 mcg/actuation HFA aerosol inhaler 2 puff INHALATION Q6H PRN (Reason: Shortness Of Breath) omeprazole 20 MG capsule 20 mg PO DAILY haloperidol 5 tablet 5 mg PO DAILY folic acid 1 mg tablet 1 mcg PO DAILY Cortisporin-TC 3.3-3-10-0.5 mg/mL drops,suspension 4 drp LEFT EAR TID 7 Days Qty: 10 0RF trazodone 100 mg tablet 100 mg PO QHS haloperidol decanoate 50 mg/mL solution 50 mg IM QMONTH ibuprofen 400 mg Tablet 400 mg PO Q4H PRN PRN (Reason: Pain 1-10 Or Fever) Qty: 0 0RF oxycodone 5 mg tablet 5 - 10 mg PO Q6H PRN (Reason: pain) 5 Days Qty: 20 0RF Primary Care Provider: Selena Robert Referrals: Selena Robert MD [Primary Care Provider] - 3-5 Days if not improving Print Language: Andorran Disposition Disposition: Home, Self Care What to do if you have Problems For any increased pain, shortness of breath, bleeding, nausea or vomiting, chestpain, or any unexpected problems, contact your Primary Care Provider. Call [facility] ([phone]) or report tothe closest Emergency Room. Call 911 if necessary. 07/17/252022 Cosigner Signature (if applicable): CC: Dr. Selena Robert MD ~ Signed [facility]08-21-2025 Discharge summary Author Conor Figueredo [facility] Note Date/Time July 17, 2025 8: 23pm [facility] Medical Records Department [address] [place] [address] Emergency Department Summary 07/17/25 MR#: [id number] Acct: [id number] Name: MARIELLA CHRISTINE Rep #:[id number] : 1990 35 From: Conor Figueredo MD PCP: Dr. Selena Robert MD Status:REG E R Location: ED HPI HPI - Female History of Present Illness Chief Complaint: Informant: patient and family Narrative Narrative: 35-year-old female states for the past 3 days she has had some perineal/vaginal discomfort so she has been sticking her finger in her vagina and feeling that itis sore. She states her last normal menstrual cycle was 8 months ago and she has had several urine and blood tests that were positive for . She states she is from [place], which is where her OB is. She states she last had an ultrasound in April and does not remember what they said about how far along she is. She states she is a G4, by miscarriage. She denies any fevers, chills, nausea, vomiting, diarrhea, she has some mild dysuria and some urinary frequency but no hematuria, along with some mild pelvic discomfort. No vaginal discharge she denies having any vaginal bleeding recently. She states before a month ago she was regular. She states she was recently kicked out of her livingsituation so she came down here to [facility]. [facility] Medical History Depression Choledocholithiasis Suicidal thoughts Memory loss Schizophrenia Bipolar 1 disorder Seizures Hypertension GERD (gastroesophageal reflux disease) IBS (irritable bowel syndrome) Hypocalcemia Neuropathy Anxiety and depression History of substance abuse Asthma Arthritis Seasonal allergies History of alcohol abuse Home Medications ?Medication ?Instructions ?Recorded ?Last Taken ?Type omeprazole 20 mg capsule,delayed 20 mg PO DAILY GERD 0 03/10/18 09/11/20 History release haloperidol 5 mg tablet 5 mg PO DAILY psych 06/15/19 08/05/21 08:30 History albuterol sulfate 90 mcg/actuation 2 puff inhalation Q 6H PRN 11/25/20 Unknown History aerosol inhaler (Ventolin HFA) Shortness Of Breath folic acid 1 mg tablet 1 mcg PO DAILY supplement 07/08/21 History gomwywgc-[id number]-UN-thonzonm 3.3 4 drp LEFT EAR TID 7 d ays #10 mL 06/07/21 Unknown Rx mg-3 mg-10 mg-0.5 mg/mL ear drops,susp (Cortisporin-TC) trazodone 100 mg tablet 100 mg PO QHS sleep 07/08/21 07/08/21 History haloperidol decanoate 50 mg/mL 50 mg IM QMONTH psych 0 07/09/21 06/27/21 History intramuscular solution ibuprofen 400 mg tablet 400 mg PO Q4H PRN PRN Pain 1 -10 Or 07/10/21 Unknown Rx Fever #0 tabs oxycodone 5 mg tablet 5 - 10 mg (1 - 2 x 5 mg) PO Q6H 07/10/21 Unknown Rx PRN pain 5 days #20 tabs Allergy/AdvReac Type Severity Reaction Status Date / Time Bleach (Sodium Hypochlorite) Allergy Mild rash Verified 07/17/25 18:27 acetaminophen Allergy breaks Verified 07/17/25 18:27 out in hives and throat swells shut bacitracin Allergy Unknown Verified 07/17/25 18:27 Latex, Natural Rubber Allergy Rash Verified 07/17/25 18:27 Penicillins Allergy Unknown Verified 07/17/25 18:27 Family History Aunt Diabetes Father Myocardial infarction, Onset Age: 50 Grandmother Myocardial infarction, Onset Age: 70 Other Alcoholism Anxiety and depression Arthritis Asthma Breast cancer CVA (cerebral vascular accident) Cancer Colon cancer Heart disease Hyperlipemia Hypertension Kidney disease Liver disease Osteoporosis Thyroid disorder Surgical History S/P ERCP S/P laparoscopic cholecystectomy History of removal of cyst History of hernia repair History of breast biopsy Social History Smoking Status: Current every day smoker tobacco type: cigarettes and e- cigarettes Tobacco: How many years used: 22 alcohol intake: current substance use type: marijuana what type of physical activity do you participate in: walking and bicycling ROS ROS ED Constitutional Constitutional ED: Denies chills or fever(s) Eyes Eyes: Denies change in vision or diplopia ENT ENT ED: Denies rhinorrhea or sore throat Cardiovascular Cardiovascular: Denies chest pain or palpitations Respiratory/Chest Respiratory/Chest: Denies cough or dyspnea Gastrointestinal Gastrointestinal: Reports abdominal pain; Denies diarrhea, nausea or vomiting Genitourinary Genitourinary ED: Reports as per HPI, dysuria and urinary frequency; Denies hematuria Musculoskeletal Musculoskeletal: Denies back pain or neck pain Integumentary Denies abscess or rash Neurologic Neurologic: Denies headache(s), paresthesias or weakness Psychiatric Psychiatric: Denies anxiety or suicidal thoughts EXAM Physical Exam Const Vital Signs: 07/17/25 18:20 Temperature 97.9 F Temperature Source Temporal Pulse Rate 89 Respiratory Rate 20 H Blood Pressure 152/103 H Blood Pressure Mean 119 Pulse Ox 99 Oxygen Delivery Method Room Air Positive well nourished and well developed General Appearance ED: well developed and NAD HEENT Reports moist mucous membranes normocephalic and atraumatic Eyes PERRL and EOMs intact bilaterally Neck full ROM and supple Resp normal respiratory effort and clear to auscultation bilaterally Cardio regular rate, regular rhythm and no murmurs GI non-tender and non-distended GI Narrative: morbidly obese Auscultation: normoactive bowel sounds Palpation: soft Back/Spine no CVA tenderness General Back: other FROM Extremity normal to inspection General Extremety ED: Negative for edema, pulses abnormal or tenderness General Extremity: Negative for edema or pulses abnormal Neuro oriented x3, CN's II-XII intact bilaterally and no sensory deficits noted Sensorium / Orientation: awake and alert Motor Exam: strength 5/5 throughout Skin no rashes or lesions noted and no wounds MDM MDM MDM Narrative Medical decision making narrative: Given patient's history I started with doing a bedside ultrasound. Throughout the pelvis, I see no obvious signs of a . I see a small area behind the bladder that may be endometrium/uterus. It is difficult to tell, limited bybody habitus, there may be a double decidual sign, and if this is then the gestational sac is consistent with a 6W6D . There is no heartbeat detectable. Unclear if this is truly a or not, I sent for aurine test and urinalysis. It is normal and her is negative. Patient is reassured, discharged home to follow-up with her family doctor or program director substance abuse. Lab Data Attestation: I reviewed the patient's lab results. Labs: Laboratory Results - last 24 hr 07/17/25 19:50 Urine Color Straw Urine Clarity Clear Urine pH 6.0 Ur Specific [place] 1.015 Urine Protein 15 H Urine Glucose (UA) Normal Urine Ketones Negative Urine Occult Blood Negative Urine Nitrite Negative Urine Bilirubin Negative Urine Urobilinogen Normal Ur Leukocyte Esterase Negative Urine Test Negative Discharge Plan Triage Chief Complaint: ED Provider: Conor Figueredo Dx/Rx/DC Orders Clinical Impression: Perineal pain in female, Urinary frequency, Amenorrhea Instructions: ED Amenorrhea Prescriptions: No Action albuterol sulfate [Ventolin HFA] 90 mcg/actuation HFA aerosol inhaler 2 puff INHALATION Q6H PRN (Reason: Shortness Of Breath) omeprazole 20 MG capsule 20 mg PO DAILY haloperidol 5 tablet 5 mg PO DAILY folic acid 1 mg tablet 1 mcg PO DAILY Cortisporin-TC 3.3-3-10-0.5 mg/mL drops,suspension 4 drp LEFT EAR TID 7 Days Qty: 10 0RF trazodone 100 mg tablet 100 mg PO QHS haloperidol decanoate 50 mg/mL solution 50 mg IM QMONTH ibuprofen 400 mg Tablet 400 mg PO Q4H PRN PRN (Reason: Pain 1-10 Or Fever) Qty: 0 0RF oxycodone 5 mg tablet 5 - 10 mg PO Q6H PRN (Reason: pain) 5 Days Qty: 20 0RF Primary Care Provider: Selena Robert Referrals: Selena Robert MD [Primary Care Provider] - 3-5 Days if not improving Print Language: Andorran Disposition Disposition: Home, Self Care What to do if you have Problems For any increased pain, shortness of breath, bleeding, nausea or vomiting, chestpain, or any unexpected problems, contact your Primary Care Provider. Call [facility] ([phone]) or report to the closest Emergency Room. Call 911 if necessary. 07/17/252022 <Electronically signed by Conor Figueredo MD> Cosigner Signature (if applicable): CC: Dr. Selena Robert MD ~ Signed [facility] Work Phone: 1(295) 911-890006-25-2025 Telephone encounter Note* Telephone Encounter - Sushila Valladares RN - 05/21/2025 9:41 AM EDT No record in [facility] that patient went to [facility] ER. No records in Care Everywhere at any other locations either. Sushila Valladares RN [facility]06-25-2025 Miscellaneous Notes* Telephone Encounter - Sushila Valladares RN - 05/21/2025 9:41 AM EDT No record in [facility] that patient went to [facility] ER. No records in Care Everywhere at any other locations either. Sushila Valladares RN * Telephone Encounter - Trinity Perez MD - 05/20/2025 11:37 AM EDT I see a negative testing from 12/21. She had ED visits in February and April. There is no mention of in either of those. Can more information be obtained on this patient please. Thanks! Trinity Perez MD * Telephone Encounter - Melissa Lucia - 05/20/2025 10:47 AM EDT Patient contacted office requesting to schedule new OB appointment and because she was experiencingtender/leaking breasts along with vaginal discomfort. Patient stated she was due to deliver May 2025 but unable to provide LMP. Patient reports she received confirmation of in February at [facility]. PSS spoke with triage nurse who advised patient report to ER [facility] to be reevaluated then contact [facility] to see if the practice could accept her as a patient. Patient notified of triage nurses instructions and voiced understanding. [facility] Telephone encounter Note * Telephone Encounter - Trinity Perez MD - 05/20/2025 11:37 AM EDT I see a negative testing from 12/21. She had ED visits in February and April. There is no mention of in either of those. Can more information be obtained on this patient please. Thanks! Trinity Perez MD [facility] Work Phone: 1(885) 424-174606-24-2025 Telephone encounter Note* Telephone Encounter - Melissa Lucia - 05/20/2025 10:47 AM EDT Patient contacted office requesting to schedule new OB appointment and because she was experiencingtender/leaking breasts along with vaginal discomfort. Patient stated she was due to deliver May 2025 but unable to provide LMP. Patient reports she received confirmation of in February at [facility]. PSS spoke with triage nurse who advised patient report to ER [facility] to be reevaluated then contact [facility] to see if the practice could accept her as a patient. Patient notified of triage nurses instructions and voiced understanding. [facility]06-22-2025 Discharge summary [facility] Medical Records Department [address] [place] [address] Emergency Department Summary 05/18/25 MR#: [id number] Acct: [id number] Name: MARIELLA CHRISTINE Rep #:[id number] : 1990 35 From: Rustam Silvestre MD PCP: Dr. Selena Robert MD Status:REG E R Location: ED HPI History of Present Illness Chief Complaint: Allergic Reaction Detail of Chief Complaint: Patient states she was bit by a bug and is having allergic reaction Informant: patient Onset/Context/Timing Onset: Hours Context: Sudden Onset Timing: Continuous Quality: Tickling in throat Location: Posterior pharynx Current Severity: Mild Maximum Severity: Mild Worsened by: She states she is allergic to hymenoptera envenomation. She was bit by a b Relieved by: Benadryl Associated Symptoms Associated Symptoms: No other symptoms Narrative Narrative: Patient is a 35-year-old female who is cognitively impaired. She has history ofallergies to hymenoptera envenomation. She presents because she needs an EpiPen. She denies swelling of her lips, tongueor throat. She denies any swelling of her face. She denies shortness of breath or wheezing. She denies palpitations or lightheadedness. She denies abdominal pain, nausea or vomiting. She denies rash.She took Benadryl prior to arrival. [facility] Medical History Depression Choledocholithiasis Suicidal thoughts Memory loss Schizophrenia Bipolar 1 disorder Seizures Hypertension GERD (gastroesophageal reflux disease) IBS (irritable bowel syndrome) Hypocalcemia Neuropathy Anxiety and depression History of substance abuse Asthma Arthritis Seasonal allergies History of alcohol abuse Home Medications ?Medication ?Instructions ?Recorded ?Last Taken ?Type omeprazole 20 mg capsule,delayed 20 mg PO DAILY GERD 0 03/10/18 09/11/20 History release haloperidol 5 mg tablet 5 mg PO DAILY psych 06/15/19 08/05/21 08:30 History albuterol sulfate 90 mcg/actuation 2 puff inhalation Q 6H PRN 11/25/20 Unknown History aerosol inhaler (Ventolin HFA) Shortness Of Breath folic acid 1 mg tablet 1 mcg PO DAILY supplement 07/08/21 History btavlwxa-vpghzn-KN-thonzonm 3.3 4 drp LEFT EAR TID 7 d ays #10 mL 06/07/21 Unknown Rx mg-3 mg-10 mg-0.5 mg/mL ear drops,susp (Cortisporin-TC) trazodone 100 mg tablet 100 mg PO QHS sleep 07/08/21 07/08/21 History haloperidol decanoate 50 mg/mL 50 mg IM QMONTH psych 0 07/09/21 06/27/21 History intramuscular solution ibuprofen 400 mg tablet 400 mg PO Q4H PRN PRN Pain 1 -10 Or 07/10/21 Unknown Rx Fever #0 tabs oxycodone 5 mg tablet 5 - 10 mg (1 - 2 x 5 mg) PO Q6H 07/10/21 Unknown Rx PRN pain 5 days #20 tabs Allergy/AdvReac Type Severity Reaction Status Date / Time Bleach (Sodium Hypochlorite) Allergy Mild rash Verified 05/18/25 12:49 acetaminophen Allergy breaks Verified 05/18/25 12:49 out in hives and throat swells shut bacitracin Allergy Unknown Verified 05/18/25 12:49 Latex, Natural Rubber Allergy Rash Verified 05/18/25 12:49 Penicillins Allergy Unknown Verified 05/18/25 12:49 Family History Aunt Diabetes Father Myocardial infarction, Onset Age: 50 Grandmother Myocardial infarction, Onset Age: 70 Other Alcoholism Anxiety and depression Arthritis Asthma Breast cancer CVA (cerebral vascular accident) Cancer Colon cancer Heart disease Hyperlipemia Hypertension Kidney disease Liver disease Osteoporosis Thyroid disorder Surgical History S/P ERCP S/P laparoscopic cholecystectomy History of removal of cyst History of hernia repair History of breast biopsy Social History Smoking Status: Former smoker Tobacco: How many years used: 22 alcohol intake: current substance use type: marijuana what type of physical activity do you participate in: walking and bicycling ROS ROS ED Constitutional Constitutional ED: Denies chills or fever(s) Eyes Eyes: Denies blurry vision or change in vision ENT ENT ED: Reports other Details: HPI narrative ; Denies ear pain, rhinorrhea or sore throat Cardiovascular Cardiovascular: Denies chest pain or palpitations Respiratory/Chest Respiratory/Chest: Denies cough, dyspnea or dyspnea on exertion Gastrointestinal Gastrointestinal: Denies abdominal pain, nausea or vomiting Musculoskeletal Musculoskeletal: Denies arthralgias or myalgias Integumentary Denies rash Neurologic Neurologic: Denies paresthesias or weakness Psychiatric Psychiatric: Reports anxiety Hematologic/Lymphatic Hematologic/Lymphatic: Reports systems reviewed and no addt'l complaints, exceptas documented EXAM Physical Exam Const Vital Signs: 05/18/25 12:49 05/18/25 13:51 05/18/25 14:00 Temperature 97.8 F Temperature Source Oral Pulse Rate 91 89 87 Respiratory Rate 18 16 16 Blood Pressure 133/81 H 124/84 H 133/77 H Blood Pressure Mean 98 97 95 Pulse Ox 94 98 99 Oxygen Delivery Method Room Air Room Air Room Air Positive well nourished and well developed Constitutional Narrative: BMI is 49.4. General Appearance ED: well developed and NAD; Negative for cyanotic, diaphoretic or pallor HEENT Reports moist mucous membranes HEENT Narrative: Head is atraumatic normocephalic. Ears normal. TMs normal. Nares patent. There is no evidence of angioedema. Posterior pharynx is normal. Uvula is midline. There is no deviation of tongue with protrusion Eyes PERRL and EOMs intact bilaterally General Eye ED: Negative for pale conjunctiva or scleral icterus Neck no lymphadenopathy, supple and no JVD Neck Narrative: Trachea is midline. There is no inspiratory expiratory stridor Chest Wall inspection of chest normal and palpation of chest normal Resp normal respiratory effort and clear to auscultation bilaterally Cardio regular rate, regular rhythm, S1 normal heart sound, S2 normal heart sound and no murmurs GI normal to inspection, nondistended, normoactive bowel sounds, non-tender and non-distended Extremity normal to inspection Extremity Narrative: There is no clubbing or cyanosis. Capillary refill is normal General Extremety ED: Negative for edema or tenderness General Extremity: Negative for edema Neuro oriented x3 and CN's II-XII intact bilaterally Sensorium / Orientation: alert Psych Mood & Affect: anxious Skin no rashes or lesions noted and no wounds Skin Narrative: Positive sunburn General Skin Exam: Negative for jaundice or pallor MDM MDM MDM Narrative Medical decision making narrative: Patient with reported allergic reaction. There is no objective findings. In myopinion epinephrine is not indicated. IV Benadryl Pepcid was ordered because she is complaining about tickling sensationin her throat. Patient became anxious and began hyperventilating when she was told an IV was can be placed. Her meds were switched to p.o. Will observe. 1 would expect if she was going to have a reaction she would have had it already since some time is passed. Treatment and Re-Evaluation :: I became aware at 1452 the patient went to go home. She was reassessed. There is no angioedema. There is no dysphonia. There is no stridor. Patient's tickling sensation has disappeared. Will discharge to home. Discharge Plan Triage Chief Complaint: Allergic Reaction ED Provider: Rustam Silvestre Dx/Rx/DC Orders Clinical Impression: Insect bite, Hypertension, Bipolar 1 disorder, Schizophrenia, Seasonal allergies, Anxiety reaction,Cognitive impairment, Adult BMI 45.0-49.9 kg/sq m Instructions: ED Insect Bite Prescriptions: No Action albuterol sulfate [Ventolin HFA] 90 mcg/actuation HFA aerosol inhaler 2 puff INHALATION Q6H PRN (Reason: Shortness Of Breath) omeprazole 20 MG capsule 20 mg PO DAILY haloperidol 5 tablet 5 mg PO DAILY folic acid 1 mg tablet 1 mcg PO DAILY Cortisporin-TC 3.3-3-10-0.5 mg/mL drops,suspension 4 drp LEFT EAR TID 7 Days Qty: 10 0RF trazodone 100 mg tablet 100 mg PO QHS haloperidol decanoate 50 mg/mL solution 50 mg IM QMONTH ibuprofen 400 mg Tablet 400 mg PO Q4H PRN PRN (Reason: Pain 1-10 Or Fever) Qty: 0 0RF oxycodone 5 mg tablet 5 - 10 mg PO Q6H PRN (Reason: pain) 5 Days Qty: 20 0RF Primary Care Provider: Selena Robert Referrals: Selena Robert MD [Primary Care Provider] - As Needed Print Language: Andorran Disposition Disposition: Home, Self Care What to do if you have Problems For any increased pain, shortness of breath, bleeding, nausea or vomiting, chestpain, or any unexpected problems, contact your Primary Care Provider. Call [facility] ([phone]) or report tothe closest Emergency Room. Call 911 if necessary. 05/18/25 1455 Cosigner Signature (if applicable): CC: Dr. Selena Robert MD ~ Signed [facility]06-22-2025 Discharge summary Author Rustam Silvestre [facility] Note Date/Time May 18, 2025 2:55 pm [facility] Medical Records Department [address] [place] [address] Emergency Department Summary 05/18/25 MR#: [id number] Acct: [id number] Name: MARIELLA CHRISTINE Rep #:[id number] : 1990 35 From: Rustam Silvestre MD PCP: Dr. Selena Robert MD Status:REG E R Location: ED HPI History of Present Illness Chief Complaint: Allergic Reaction Detail of Chief Complaint: Patient states she was bit by a bug and is having allergic reaction Informant: patient Onset/Context/Timing Onset: Hours Context: Sudden Onset Timing: Continuous Quality: Tickling in throat Location: Posterior pharynx Current Severity: Mild Maximum Severity: Mild Worsened by: She states she is allergic to hymenoptera envenomation. She was bit by a b Relieved by: Benadryl Associated Symptoms Associated Symptoms: No other symptoms Narrative Narrative: Patient is a 35-year-old female who is cognitively impaired. She has history ofallergies to hymenoptera envenomation. She presents because she needs an EpiPen. She denies swelling of her lips, tongue or throat. She denies any swelling of her face. She denies shortness of breath or wheezing. She denies palpitations or lightheadedness. She denies abdominal pain, nausea or vomiting. She denies rash. She took Benadryl prior to arrival. [facility] Medical History Depression Choledocholithiasis Suicidal thoughts Memory loss Schizophrenia Bipolar 1 disorder Seizures Hypertension GERD (gastroesophageal reflux disease) IBS (irritable bowel syndrome) Hypocalcemia Neuropathy Anxiety and depression History of substance abuse Asthma Arthritis Seasonal allergies History of alcohol abuse Home Medications ?Medication ?Instructions ?Recorded ?Last Taken ?Type omeprazole 20 mg capsule,delayed 20 mg PO DAILY GERD 0 03/10/18 09/11/20 History release haloperidol 5 mg tablet 5 mg PO DAILY psych 06/15/19 08/05/21 08:30 History albuterol sulfate 90 mcg/actuation 2 puff inhalation Q 6H PRN 11/25/20 Unknown History aerosol inhaler (Ventolin HFA) Shortness Of Breath folic acid 1 mg tablet 1 mcg PO DAILY supplement 07/08/21 History ggnsbfgk-kknnhd-[id number]-thonzonm 3.3 4 drp LEFT EAR TID 7 d ays #10 mL 06/07/21 Unknown Rx mg-3 mg-10 mg-0.5 mg/mL ear drops,susp (Cortisporin-TC) trazodone 100 mg tablet 100 mg PO QHS sleep 07/08/21 07/08/21 History haloperidol decanoate 50 mg/mL 50 mg IM QMONTH psych 0 07/09/21 06/27/21 History intramuscular solution ibuprofen 400 mg tablet 400 mg PO Q4H PRN PRN Pain 1 -10 Or 07/10/21 Unknown Rx Fever #0 tabs oxycodone 5 mg tablet 5 - 10 mg (1 - 2 x 5 mg) PO Q6H 07/10/21 Unknown Rx PRN pain 5 days #20 tabs Allergy/AdvReac Type Severity Reaction Status Date / Time Bleach (Sodium Hypochlorite) Allergy Mild rash Verified 05/18/25 12:49 acetaminophen Allergy breaks Verified 05/18/25 12:49 out in hives and throat swells shut bacitracin Allergy Unknown Verified 05/18/25 12:49 Latex, Natural Rubber Allergy Rash Verified 05/18/25 12:49 Penicillins Allergy Unknown Verified 05/18/25 12:49 Family History Aunt Diabetes Father Myocardial infarction, Onset Age: 50 Grandmother Myocardial infarction, Onset Age: 70 Other Alcoholism Anxiety and depression Arthritis Asthma Breast cancer CVA (cerebral vascular accident) Cancer Colon cancer Heart disease Hyperlipemia Hypertension Kidney disease Liver disease Osteoporosis Thyroid disorder Surgical History S/P ERCP S/P laparoscopic cholecystectomy History of removal of cyst History of hernia repair History of breast biopsy Social History Smoking Status: Former smoker Tobacco: How many years used: 22 alcohol intake: current substance use type: marijuana what type of physical activity do you participate in: walking and bicycling ROS ROS ED Constitutional Constitutional ED: Denies chills or fever(s) Eyes Eyes: Denies blurry vision or change in vision ENT ENT ED: Reports other Details: HPI narrative ; Denies ear pain, rhinorrhea or sore throat Cardiovascular Cardiovascular: Denies chest pain or palpitations Respiratory/Chest Respiratory/Chest: Denies cough, dyspnea or dyspnea on exertion Gastrointestinal Gastrointestinal: Denies abdominal pain, nausea or vomiting Musculoskeletal Musculoskeletal: Denies arthralgias or myalgias Integumentary Denies rash Neurologic Neurologic: Denies paresthesias or weakness Psychiatric Psychiatric: Reports anxiety Hematologic/Lymphatic Hematologic/Lymphatic: Reports systems reviewed and no addt'l complaints, exceptas documented EXAM Physical Exam Const Vital Signs: 05/18/25 12:49 05/18/25 13:51 05/18/25 14:00 Temperature 97.8 F Temperature Source Oral Pulse Rate 91 89 87 Respiratory Rate 18 16 16 Blood Pressure 133/81 H 124/84 H 133/77 H Blood Pressure Mean 98 97 95 Pulse Ox 94 98 99 Oxygen Delivery Method Room Air Room Air Room Air Positive well nourished and well developed Constitutional Narrative: BMI is 49.4. General Appearance ED: well developed and NAD; Negative for cyanotic, diaphoretic or pallor HEENT Reports moist mucous membranes HEENT Narrative: Head is atraumatic normocephalic. Ears normal. TMs normal. Nares patent. There is no evidence of angioedema. Posterior pharynx is normal. Uvula is midline. There is no deviation of tongue with protrusion Eyes PERRL and EOMs intact bilaterally General Eye ED: Negative for pale conjunctiva or scleral icterus Neck no lymphadenopathy, supple and no JVD Neck Narrative: Trachea is midline. There is no inspiratory expiratory stridor Chest Wall inspection of chest normal and palpation of chest normal Resp normal respiratory effort and clear to auscultation bilaterally Cardio regular rate, regular rhythm, S1 normal heart sound, S2 normal heart sound and no murmurs GI normal to inspection, nondistended, normoactive bowel sounds, non-tender and non-distended Extremity normal to inspection Extremity Narrative: There is no clubbing or cyanosis. Capillary refill is normal General Extremety ED: Negative for edema or tenderness General Extremity: Negative for edema Neuro oriented x3 and CN's II-XII intact bilaterally Sensorium / Orientation: alert Psych Mood & Affect: anxious Skin no rashes or lesions noted and no wounds Skin Narrative: Positive sunburn General Skin Exam: Negative for jaundice or pallor MDM MDM MDM Narrative Medical decision making narrative: Patient with reported allergic reaction. There is no objective findings. In myopinion epinephrine is not indicated. IV Benadryl Pepcid was ordered because she is complaining about tickling sensation in her throat. Patient became anxious and began hyperventilating when she was told an IV was can be placed. Her meds were switched to p.o. Will observe. 1 would expect if she was going to have a reaction she would have had it already since some time is passed. Treatment and Re-Evaluation :: I became aware at 1452 the patient went to go home. She was reassessed. There is no angioedema. There is no dysphonia. There is no stridor. Patient's tickling sensation has disappeared. Will discharge to home. Discharge Plan Triage Chief Complaint: Allergic Reaction ED Provider: Rustam Silvestre Dx/Rx/DC Orders Clinical Impression: Insect bite, Hypertension, Bipolar 1 disorder, Schizophrenia, Seasonal allergies, Anxiety reaction, Cognitive impairment, Adult BMI 45.0-49.9 kg/sq m Instructions: ED Insect Bite Prescriptions: No Action albuterol sulfate [Ventolin HFA] 90 mcg/actuation HFA aerosol inhaler 2 puff INHALATION Q6H PRN (Reason: Shortness Of Breath) omeprazole 20 MG capsule 20 mg PO DAILY haloperidol 5 tablet 5 mg PO DAILY folic acid 1 mg tablet 1 mcg PO DAILY Cortisporin-TC 3.3-3-10-0.5 mg/mL drops,suspension 4 drp LEFT EAR TID 7 Days Qty: 10 0RF trazodone 100 mg tablet 100 mg PO QHS haloperidol decanoate 50 mg/mL solution 50 mg IM QMONTH ibuprofen 400 mg Tablet 400 mg PO Q4H PRN PRN (Reason: Pain 1-10 Or Fever) Qty: 0 0RF oxycodone 5 mg tablet 5 - 10 mg PO Q6H PRN (Reason: pain) 5 Days Qty: 20 0RF Primary Care Provider: Selena Robert Referrals: Selena Robert MD [Primary Care Provider] - As Needed Print Language: Andorran Disposition Disposition: Home, Self Care What to do if you have Problems For any increased pain, shortness of breath, bleeding, nausea or vomiting, chestpain, or any unexpected problems, contact your Primary Care Provider. Call [facility] ([phone]) or report to the closest Emergency Room. Call 911 if necessary. 05/18/251454 <Electronically signed by Rustam Silvestre MD> Cosigner Signature (if applicable): CC: Dr. Selena Robert MD ~ Signed [facility] Work Phone: [phone] 501-738704-25-2025 Hospital Discharge instructions* Discharge Instructions* Lois Winter PA-C - 03/21/2025 8:18 PM [...] emergency department should anything change or worsen. * Attachments The following attachments cannot be sent through Care Everywhere. * Ankle Sprain Discharge Instructions (Andorran) documented in this [facility]04-25-2025 Emergency department Note* Lois Winter PA-C - 03/21/2025 5:04 PM EDT EMERGENCY DEPARTMENT ENCOUNTER Pt Name: Mariella Christine [...] - Food Insecurity Present (09/12/2024) Received from [facility] Hunger Vital Sign Worried About Running [...] Session: Patient declined Stress: Patient Declined (12/06/2024) [employer] - Occupational Stress Questionnaire Feeling of Stress : Patient declined Social Connections: Patient Declined (12/06/2024) Social Connection and Isolation Panel [NHANES] Frequency of Communication with Friends and Family: Patient declined Frequency of Social Gatherings with Friends and Family: Patient declined Attends Taoism Services: Patient declined Active Member of Clubs [...] SCREENINGS PHYSICAL EXAM ED Triage Vitals [03/21/25 5797] Temp Heart Rate Resp BP 36.1 C [...] deformity. Full range of motion with flexion, distention,lateral rotation of the ankle. PT DP pulses easily palpable and symmetric bilaterally. Sensation intact. Negative squeeze test. No patellar instability. No anterior posterior drawer laxity. Calf softand nontender. Negative Homans. Compartments soft. Skin warm [...] Shared decision making preformed. PATIENT REFERRED TO: [facility] EMERGENCY DEPT [address] [place] [phone] As needed, If symptoms worsen [facility] [address] [phone] DISCHARGE MEDICATIONS: New Prescriptions ACETAMINOPHEN (TYLENOL EXTRA STRENGTH) 500 MG TABLET Take 1 tablet (500 mg) by mouth every 6 hours as needed for mild pain (1-3) for up to 10 days. IBUPROFEN 600 MG TABLET Take 1 tablet (600 mg) by mouth every 6 hours as needed for mild pain (1-3)for up to 7 days. (Comment: Please note this report has been produced using speech recognition software and may contain errors related to that system including errors in grammar, punctuation, and spelling, as well as words and phrases that may be inappropriate. If there are any questions or concerns please feel freeto contact the dictating provider for clarification.) Lois Winter PA-C (electronically signed) Emergency Medicine Provider Lois Winter PA-C 03/21/252038 documented in this [facility]04-25-2025 Physician Emergency department Note* Lois Winter PA-C - 03/21/2025 5:04 PM EDT EMERGENCY DEPARTMENT ENCOUNTER Pt Name: Mariella Christine [...] - Food Insecurity Present (09/12/2024) Received from [facility] Hunger Vital Sign Worried About Running [...] Session: Patient declined Stress: Patient Declined (12/06/2024) [employer] - Occupational Stress Questionnaire Feeling of Stress : Patient declined Social Connections: Patient Declined (12/06/2024) Social Connection and Isolation Panel [NHANES] Frequency of Communication with Friends and Family: Patient declined Frequency of Social Gatherings with Friends and Family: Patient declined Attends Taoism Services: Patient declined Active Member of Clubs [...] deformity. Full range of motion with flexion, distention,lateral rotation of the ankle. PT DP pulses easily palpable and symmetric bilaterally. Sensation intact. Negative squeeze test. No patellar instability. No anterior posterior drawer laxity. Calf softand nontender. Negative Homans. Compartments soft. Skin warm [...] her follow-up with her primary care provider, [facility] referral to orthopedic sports medicine for further evaluation and management as an outpatient. Strict ER return precautions were discussed, patient was comfortable and agreeable with plans for discharge. Discharged in stable condition with stable vital signs. Work note provided. FINAL IMPRESSION 1. Moderate left ankle sprain, initial encounter DISPOSITION Discharge 03/21/2025 08:17:58 PM Shared decision making preformed. PATIENT REFERRED TO: [facility] EMERGENCY DEPT [address] [facility] [phone] As needed, If symptoms worsen [facility] - [address] [phone] DISCHARGE MEDICATIONS: New Prescriptions ACETAMINOPHEN (TYLENOL EXTRA STRENGTH) 500 MG TABLET Take 1 tablet (500 mg) by mouth every 6 hours as needed for mild pain (1-3) for up to 10 days. IBUPROFEN 600 MG TABLET Take 1 tablet (600 mg) by mouth every 6 hours as needed for mild pain (1-3)for up to 7 days. (Comment: Please note this report has been produced using speech recognition software and may contain errors related to that system including errors in grammar, punctuation, and spelling, as well as words and phrases that may be inappropriate. If there are any questions or concerns please feel freeto contact the dictating provider for clarification.) Lois Winter PA-C (electronically signed) Emergency Medicine Provider Lois Winter PA-C 03/21/252038 [id number] NoteDischarge Summary Mariella Christine : 1990 ADMIT DATE: 12/05/2024 DISCHARGE DATE: 12/06/2024 PRIMARY CARE PHYSICIAN: No primary care provider on file. VISIT STATUS: Admission CODE STATUS: Full Code DISCHARGE DIAGNOSES: 1.) Schizophrenia 2.) Cannabis use disorder 3.) PTSD HOSPITAL COURSE: Mariella was admitted to [facility] 6 for psychiatric stabilization of chronic schizophrenia with delusional thoughts. She presented to the emergency department believing that she was and in labor. She was evaluated by ED staff, had no signs of labor and her hCG was negative. She was admitted to [facility] for psychiatric assessment. On initial assessment, she accepted that she was not . I went over lab results with her. I do believe that she probably is chronically delusional. She did not appear to be a danger to herself or others and most likely is at her baseline mental state. She will follow-up with [facility] health. She denied suicidal or homicidalideation, [...] Complexity: follow up within 7-14 calendar days (72324) [] Severe Complexity: follow up within 7 calendar days (12944) FOLLOW UP TESTING, PENDING RESULTS OR REFERRALS AT TRANSITIONAL CARE VISIT: [x] Yes [] No PENDING STUDIES: none DISPOSITION: Home Follow up with [facility] [address] [place] [address] Go to Walk in hours-Mon 8am to 2pm, Tue/Thurs 8am to 3pm, and Fri 8am to 12pm. Please bring photo ID and insurance information. DISCHARGE TIME: > 30 minutes SIGNED: Lex Devine MD 12/06/2024, 10:45 [facility]01-10-2025 NoteDepartment of Psychiatry History and Physical - Adult [...] schizophrenia and she was therefore admitted to [facility]. On exam, she is fairly cooperative at [...] Reports she follows up with [facility] and has a history of schizophrenia, [...] has Parkinson's dementia. She follows up with [facility]. She reports 1 admission in the past though cannot recall when, reports 1 suicide attempt over 10 years ago. Past Medical History: History reviewed. No pertinent past medical history. Past Surgical History: History reviewed. No pertinent surgical history. Allergies: Latex, Pcn [penicillins], and Amoxicillin Family History: No family history on file. Social History: Reports she is from [place] and grew up in [place]. She lives with her cousin. She is [...] and situation MEMORY: r (more content not included)...[facility]01-10-2025 Note Problem: Sensory Perceptual Alteration as Evidenced by Goal: Cooperates with admission process Outcome: Progressing Goal: Free from restraint events Outcome: [facility]11-08-2024 Emergency department Note * Gracy Abdul - 10/04/2024 3:19 PM EST Pt was taken to room 46 and ready to be discharged [id number] Emergency department Note* Gracy Abdul - 10/04/2024 3:19 PM EST Pt was taken to room 46 and ready to be discharged * Lakesha Marsh - 10/04/2024 2:52 PM EST Pt was given the phone. * Lakesha Marsh - 10/04/2024 2:36 PM EST Pt up to the restroom. * Lakesha Marsh - 10/04/2024 2:33 PM EST Psych at bedside. * Lakesha Marsh - 10/04/2024 1:55 PM EST Pt up to the restroom. * Norberto Petty - 10/04/2024 12:46 PM EST Pt walked to restroom with no issues * Lakesha Marsh - 10/04/2024 12:00 PM EST PT. WAS CHANGED INTO HOSPITAL GOWN,SKIN ASSESSMENT COMPLETED BY NURSING. PT WANDED AND ALL BELONGINGS INVENTORIED AND LOCKED IN CABINET BY PROTECTIVE SERVICE. Pt has 1 bag. * Walt Mckenna MD - 10/04/2024 10:46 AM EST Emergency Department Encounter [facility] EMERGENCY DEPT Patient: [...] questions, patient states that she has multiple personalitieshas been having some paranoid delusions she feels [...] [employer] Walt Mckenna MD 10/04/24 1119 * Ranulfo Elizondo MD - 10/04/2024 10:46 AM EST Emergency Department Encounter [facility] EMERGENCY DEPT Patient: Mariella Christine : 1990 [...] to them that she is emotionally worn out.She states she is just tired of going [...] a lot of positive things going on becauseshe has lost a lot of weight and states that she has lost 17 personalities and is doing better froma mental health standpoint from that aspect. Denies [...] [facility] [employer] Ranulfo Elizondo MD 10/04/24 1237 * Vanesa White MD - 10/04/2024 10:46 AM EST I did not participate in the care of this patient. Vanesa White MD Resident 10/04/24 1513 Cosigned by Ranulfo Elizondo MD at 10/04/2024 5:34 PM EST * Jeffrey Evans MD - 10/04/2024 10:46 AM EST EMERGENCY DEPARTMENT ENCOUNTER Pt Name: Mariella Christine Birthdate 1990 Date of evaluation: 10/04/2024 ED Provider: Jeffrey Evnas MD CHIEF COMPLAINT Chief Complaint Patient presents [...] Insecurity: Food Insecurity Present (09/12/2024) Received from [facility] Vital Sign Worried About Running Out of [...] for medical treatment only. Analysis performed using non- forensic procedures. DRUGS OF ABUSE AMPHETAMINE SCREEN Negative [...] If confirmation is needed, request confirmation under separateorder. HCG, RAPID SERUM HCG, RAPID SCREEN None [...] are any questions or concerns please feel freeto contact the dictating provider for clarification.) Jeffrey Evans MD (electronically signed) Emergency Medicine Provider Jeffrey Evans MD Resident 10/04/24 1532 Cosigned by Ranulfo Elizondo MD at 10/04/2024 5:34 PM EST documented in this [facility]11-08-2024 Hospital Discharge instructions* Discharge Instructions* Jeffrey Evans MD - 10/04/2024 3:07 PM EST Please return to the emergency department if you develop suicidal thoughts homicidal thoughts or wanting to harm others documented in this [facility]11-08-2024 Emergency department Note* Lakesha Marsh - 10/04/2024 2:52 PM EST Pt was given the phone. [id number] Emergency [facility]* Lakesha Marsh - 10/04/2024 2:36 PM EST Pt up to the restroom. [id number] Emergency department Note* Lakesha Mrash - 10/04/2024 2:33 PM EST Psych at bedside. [address]Ttckrq25-05-2637 Emergency department Note* Lakesha Marsh - 10/04/2024 1:55 PM EST Pt up to the restroom. [address]Rtjrkx63-86-1532 Emergency department Note* Norberto Petty - 10/04/2024 12:46 PM EST Pt walked to restroom with no issues [id number] NoteNOTE: This result is for medical treatment only. Analysis performed using non-forensic procedures. [facility] [id number] Emergency department Note* Lakesha Marsh - 10/04/2024 12:00 PM EST PT. WAS CHANGED INTO HOSPITAL GOWN,SKIN ASSESSMENT COMPLETED BY NURSING. PT WANDED AND ALL BELONGINGS INVENTORIED AND LOCKED IN CABINET BY PROTECTIVE SERVICE. Pt has 1 bag. [place] [id number] History of Present illness Narrative* Jade Leonard MD - 10/04/2024 10:46 AM EST Department of Clinical Applications Manager Emergency Psychiatric Evaluation CHIEF COMPLAINT: Chief Complaint [...] that she saw her outpatient therapist through [facility] yesterday and they made her promise that she would come to the ED today for an evaluation to talk about anxiety. Patient is adamant that there are no safety concerns -she denies SI and HI. She reports feeling [...] for inpatient psychiatric admission. Laboratory workup largely non- contributory with negative UDS and ETOH. In meeting [...] she developed this new personality named Fabien last. Patient is adamant that she has no [...] psychiatrist, has a therapist, and has a foster care case manager through [facility]. I called [facility] to speak with her therapist. Her therapist was unavailable. I spoke with the golf sales associate and left a voicemail for her therapist to set her up with [facility] PHP/IOP. REVIEW OF SYSTEMS: Medical Review Of [...] care for the above psychiatric illness with [facility]. 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 andno tremor or parkinsonism noted Speech: Regular rate, [...] past psychiatric history notable for MRDD, schizoaffective disorderbipolar type, PTSD, anxiety, depression, and multiple personalities who presented to the [facility] ED voluntarily with a concern for wanting [...] discharge with outpatient follow up. I called [facility] and left a message for her to obtain PHP/IOP services through them. Escalation of care, including admission to inpatient psychiatry, was considered. Pt does NOT require involuntary psychiatric admission at this time. Pt declined voluntary admission. Pt was referred to [facility] PHP/IOP. Diagnostic Impression: MRDD Schizoaffective disorder, bipolar type, per history KECIA PTSD per history Cannabis use disorder Risk of harm to self: Low Risk -- Risk factors include: Severe anxiety Protective factors include:Denies current suicidalideation, Denies history of suicide attempts , Future-oriented talk , Willingness to seek help and support , Access to a variety of clinical interventions , Receiving and engaged in care for mental, p hysical, and substance use disorders , History of [...] screening RECOMMENDATIONS: Disposition: Home with follow-up at [facility] Management of the patient was discussed with [...] and resiliency and can continue this at [facility]. She is agreeable to return for worsening symptoms and call [facility] to schedule with their IOP Monday. Vanesa Carrillo MD documented in this [facility]11-08-2024 Physician Emergency department Note* Walt Mckenna MD - 10/04/2024 10:46 AM EST Emergency Department Encounter [facility] EMERGENCY DEPT Patient: Mariella Christine : 1990 [...] questions, patient states that she has multiple personalitieshas been having some paranoid delusions she feels [...] for clarification Walt Mckenna MD Acute [facility] Walt Mckenna MD 10/04/24 1119 [employer] Work Phone: 1(656) 145-787111-08-2024 Physician Emergency department Note* Ranulfo Elizondo MD - 10/04/2024 10:46 AM EST Emergency Department Encounter [facility] EMERGENCY DEPT Patient: Mariella Christine : 1990 Date of Evaluation: 10/04/2024 ED Supervising Physician: Ranulfo Elziondo MD I personally saw Mariella Christine and [...] to them that she is emotionally worn out.She states she is just tired of going [...] a lot of positive things going on becauseshe has lost a lot of weight and states that she has lost 17 personalities and is doing better froma mental health standpoint from that aspect. Denies [...] are mis-transcribed.) Ranulfo Elizondo MD Acute [facility] Ranulfo Elizondo MD 10/04/24 1237 [employer] Phone: [phone] Physician Emergency department Note* Vanesa White MD - 10/04/2024 10:46 AM EST I did not participate in the care of this patient. Vaneas White MD Resident 10/04/24 1513 Cosigned by Ranulfo Elizondo MD at 10/04/2024 5:34 PM EST [employer] Phone: 1([phone] 574-890511-08-2024 Physician Emergency department Note* Jeffrey Evans MD - 10/04/2024 10:46 AM EST EMERGENCY DEPARTMENT ENCOUNTER Pt Name: Mariella [...] Insecurity: Food Insecurity Present (09/12/2024) Received from [facility] Vital Sign Worried About Running Out of [...] for medical treatment only. Analysis performed using non- forensic procedures. DRUGS OF ABUSE AMPHETAMINE SCREEN Negative [...] If confirmation is needed, request confirmation under separateorder. HCG, RAPID SERUM HCG, RAPID SCREEN None [...] are any questions or concerns please feel freeto contact the dictating provider for clarification.) Jeffrey Evans MD (electronically signed) Emergency Medicine Provider Jeffrey Evans MD Resident 10/04/24 1532 Cosigned by Ranulfo Elizondo MD at 10/04/2024 5:34 PM EST [id number] NoteHNO ID: [id number] Author: HAL SCOTT DTR Service: ? Author Type: Surface Grinder Type: Progress Notes Filed: 09/12/2024 11:07 Note Text: [facility] General Visit Service Date: 09/12/2024 Service Time: 11:00 AM [facility]: [facility] [address] [place] [address] Dept: [phone] Dept Is this the patient's first visit: [...] Instruction: Verbal instruction Material(s) Provided to Patient: iTracsmyAnne Fogarty.Shopcade health eating handourt Was the patient [facility] a [facility]: No Was the patient provided any additional community resources: No Food Insecurity: Not on file Time spent: 15-30 minutes SIGNATURE: Hal Scott DTR PATIENT NAME: Mariella Christine DATE: September 12, 2024 [facility]: [facility] History of Present illness Narrative* Hal Scott DTR - 09/12/2024 10:59 AM EDT [facility] General Visit Service Date: 09/12/2024 Service Time: 11:00 AM Location: [facility] [address] [place] [address] Dept: [phone] Dept Is this the patient's first visit: [...] Instruction: Verbal instruction Material(s) Provided to Patient: chooseAppforma.EventRegist eating handourt Was the patient scheduled for a [facility]: No Was the patient provided any additional community resources: No Food Insecurity: Not on file Time spent: 15-30 minutes SIGNATURE: Hal Scott DTR PATIENT NAME: Mariella Christine DATE: September 12, 2024 TIME: 11:00 AM [facility] History of Present illness Narrative* Gamaliel Mo, DO - 08/13/2024 6:10 PM EDT Subjective: Chief Complaint Patient presents with Cough Barking cough that she's not sure when started. Think it's related to her smoking. Ibuprofen for inflammation. Patient: Mariella Christine is a 34 y.o. female Patient presenting to urgent care with a 1 week duration of a barky cough. Patient reports that hercousin has been mentioning to her for the past 1 week that she has a barky cough. She is requestingCOVID, flu, and strep testing. Patient states she has a past medical history of dementia, Parkinsondisease, and COPD. No PFTs on file for [...] the ER for pain control. She does nothave a PCP. Requesting Epi pen for bee [...] - Ambulatory referral to Family Practice; Future Bnecj-yo-mawf COVID-negative. No evidence of COPD or emphysema on chart review. Will treat with a prednisone burst given #4 and #5 to avoid patient going to the ER. Epi refill and albuterol trial perpatient preference/request. Offered patient referral to primary care which she accepted. Advised patient there is no indication for flu or strep testing. Discussed that symptoms could be due to RSV or even croup. No indication for chest x-ray or any antibiotics. Gamaliel Mo DO 08/13/24 6:45 PM If symptoms do not improve, worsen, or new symptoms develop, see PCP for further evaluation. (Please note: Portions of this note were completed with a voice recognition program, plista xavier for Iphone. Efforts were made to edit the dictations but occasionally words and phrases are mis-transcribed.) documented in this [facility]09-17-2024 Instructions* Patient Instructions* Gamaliel Mo DO - 08/13/2024 6:10 PM EDT Thank you for coming to [facility] for your medical care! * Attachments The following attachments cannot be sent through Care Everywhere. * Viral Upper Respiratory Infection Discharge Instructions, Adult (Andorran) documented in this [facility]08-06-2024 Emergency department Note* Lashonda Gerber RN - 07/02/2024 4:01 PM EDT Patient not in the ERP at this time Lashonda Gerber RN 07/02/24 1601 [facility] [id number] Emergency department Note* Lashonda Gerber RN - 07/02/2024 4:01 PM EDT Patient not in the ERP at this time Lashonda Gerber RN 07/02/24 1601 * Lashonda Gerber RN - 07/02/2024 3:44 PM EDT ER Glass Production Machine Operator attempting to draw d-dimer but patient not in ERP; RN also attempting to locate patient Lashonda Gerber RN 07/02/24 1600 * Theresa Parkinson LPN - 07/02/2024 1:13 PM EDT Pt refused fluids. States I have a DR apt at 3. Pt has received PO meds. Theresa Parkinson LPN 07/02/24 1314 * Theresa Parkinson LPN - 07/02/2024 1:12 PM EDT This nurse attempted for IV line x2. Nurse was unsuccessful. Another nurse going to attempt line. Theresa Parkinson LPN 07/02/24 1312 * Vanesa Saldivar DO - 07/02/2024 11:43 AM EDT Emergency Department Encounter [facility] EMERGENCY DEPT Patient: Mariella Christine : 1990 [...] PERC criteria. Low risk by Wells criteria. D- dimer has been ordered. Disposition will bedependent upon results of diagnostic studies and reevaluation. [...] are any questions or concerns please feel freeto contact the dictating provider for clarification.) Vanesa Saldivar DO [employer] Vanesa Saldivar DO 07/02/24 1207 * Silvio Serrano PA-C - 07/02/2024 11:43 AM EDT EMERGENCY DEPARTMENT ENCOUNTER Pt Name: Mariella Christine [...] No pulsatile mass. No guarding or rigidity. NoCVA tenderness. MUSCULOSKELETAL: No acute deformities. Full range of motion in all extremities. SKIN: Warm and dry. NEUROLOGICAL: Alert and oriented x 4. NIH is 0. Cranial nerves II through XII are grossly intact. No gross facial drooping. No pronator drift in upper or lower extremity. Finger-nose and ublq-ne-ilvsnnw normal. No truncal instability. No visual field deficits. No obvious neurologic deficits. 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 Moves all 4 extremities spontaneously. [...] seen in the ED on 06/22/2024 for chestpain and shortness of breath. CT of the [...] presented to the emergency department for multiple complaintsincluding chest pain shortness of breath that has [...] back on MyChart before we could talk toher about them and this may be the [...] are any questions or concerns please feel freeto contact the dictating provider for clarification.) Silvio Serrano PA-C (electronically signed) Emergency Medicine Provider Silvio Serrano PA-C 07/02/24 1651 documented in this [facility]08-06-2024 Emergency department Note* Lashonda Gerber RN - 07/02/2024 3:44 PM EDT ER Glass Production Machine Operator attempting to draw d-dimer but patient not in ERP; RN also attempting to locate patient Lashonda Gerber RN 07/02/24 1600 [facility] InstituteNcvgsg41-75-1033 Emergency department Note* Theresa Parkinson LPN - 07/02/2024 1:13 PM EDT Pt refused fluids. States I have a DR apt at 3. Pt has received PO meds. Theresa Parkinson LPN 07/02/24 1314 [facility] [id number] Emergency department Note* Theresa Parkinson LPN - 07/02/2024 1:12 PM EDT This nurse attempted for IV line x2. Nurse was unsuccessful. Another nurse going to attempt line. Theresa Parkinson LPN 07/02/24 1312 [facility] InstituteRhmqae29-54-9047 Physician Emergency department Note* Vanesa Saldivar DO - 07/02/2024 11:43 AM EDT Emergency Department Encounter [facility] EMERGENCY DEPT Patient: Mariella Christine : 1990 Date of Evaluation: 07/02/2024 ED Supervising Physician: Vanesa Saldivar, I personally evaluated Mariella Christine and made/approved [...] PERC criteria. Low risk by Wells criteria. D- dimer has been ordered. Disposition will bedependent upon results of diagnostic studies and reevaluation. [...] are any questions or concerns please feel freeto contact the dictating provider for clarification.) Vanesa Saldivar DO [facility] Vanesa Saldivar DO 07/02/24 1200 [employer] Phone: [phone] 509-868808-06-2024 Physician Emergency department Note* Silvio Serrano PA-C - 07/02/2024 11:43 AM EDT EMERGENCY DEPARTMENT ENCOUNTER Pt Name: Mariella Christine [...] Denies any head injury or trauma does nottake any blood thinners. She describes the chest [...] No pulsatile mass. No guarding or rigidity. NoCVA tenderness. MUSCULOSKELETAL: No acute deformities. Full range of motion in all extremities. SKIN: Warm and dry. NEUROLOGICAL: Alert and oriented x 4. NIH is 0. Cranial nerves II through XII are grossly intact. No gross facial drooping. No pronator drift in upper or lower extremity. Finger-nose and hddv-ub-wqksrco normal. No truncal instability. No visual field deficits. No obvious neurologic deficits. 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 Moves all 4 extremities spontaneously. [...] seen in the ED on 06/22/2024 for chestpain and shortness of breath. CT of the [...] presented to the emergency department for multiple complaintsincluding chest pain shortness of breath that has [...] back on MyChart before we could talk toher about them and this may be the [...] are any questions or concerns please feel freeto contact the dictating provider for clarification.) Silvio Serrano PA-C (electronically signed) Emergency Medicine Provider Silvio Serrano PA-C 07/02/241650 [facility] InstituteWwicnq07-31-6274 Emergency department Note* Shelly Bennett MA - 06/22/2024 8:02 PM EDT IV removed from left forearm. Shelly Bennett MA 06/22/242001 Shelly Bennett MA 06/22/242002 [facility] InstituteLddqnj41-55-3316 Emergency department Note* TORRES Davis 06/22/2024 8:02 PM EDT IV removed from left forearm. Shelly Bennett MA 06/22/242001 Shelly Bennett MA 06/22/242002 * Kylie Moore RN - 06/22/2024 8:[address] Silvestre notified that patient is leaving. Kylie Moore RN 06/22/242001 * Kylie Moore RN - 06/22/2024 8:00 PM EDT Patient came to RN at window and said she would like to leave since she got all her results in her mychart. Kylie Moore RN 06/22/242000 * Pravin Silvestre MD - 06/22/2024 1:20 PM EDT Emergency Department Encounter [facility] EMERGENCY DEPT Patient: Mariella Christine : 1990 Date of Evaluation: 06/22/2024 ED Provider: Pravin Silvestre MD I saw the patient as [...] nature, patient hurts when she goes from Semi- Pereira's to sitting upright, hurts to take a deep breath, hurts to rotate pqsv-mt-oomc, hurts to cough. Has a cough and wheezing for the last several days. Cough is productive of red sputum which might be blood. Was short of br eath for about 20 minutes prior to arrival [...] chronically ill adult in mild respiratory distress. Non- toxic appearing HENT: Head NCAT, EOMI with no erythema, swelling or discharge. Oropharyngeal mucus membranes moist,pink, no exudate Neck: Full ROM, supple, no rigidity Cardio: RRR, nl s1 s2 no m/r/g, extremities warm, dry, well perfused, non- edematous, 2+ bilateral radial pulses, 2+ bilateral DP pulses Lungs: CTAB, no wheezes, rales, rhonchi, normal work of breathing Abdomen: Soft, NT, ND, non-rigid, BS x 4 normal Skin: Warm, dry, pink, no rashes, bruising, or lacerations, no petechiae, no purpura Neuro: Patient alert, oriented, able to answer questions and follow commands manager of clinical II-XII normal Normal 5/5 strength and normal [...] pneumonia, recurrent pulmonary embolism, asthma exacerbation or undiagnosedCOPD or combination the above. Will test for [...] to contact the dictating provider for clarification) Pravin Silvestre MD [employer] Pravin Silvestre MD 06/22/24 1432 documented in this [facility]07-27-2024 Emergency department Note* Kylie Moore RN - 06/22/2024 8:[address] Silvestre notified that patient is leaving. Kylie Moore RN 06/22/242001 [id number] Emergency department Note* Kylie Moore RN - 06/22/2024 8:00 PM EDT Patient came to RN at [facility] and said she would like to leave since she got all her results in her mychart. Kylie Moore RN 06/22/242000 [address]Mvcemi51-57-2561 Physician Emergency department Note* Pravin Silvestre MD - 06/22/2024 1:20 PM EDT Emergency Department Encounter [facility] EMERGENCY DEPT Patient: Mariella Christine : 1990 Date of Evaluation: 06/22/2024 ED Provider: Pravin Silvestre MD I saw the patient as [...] nature, patient hurts when she goes from Semi- Pereira's to sitting upright, hurts to take a deep breath, hurts to rotate [id number]-jw-fxyg, hurts to cough. Has a cough and wheezing for the last several days. Cough is productive of red sputum which might be blood. Was short of br eath for about 20 minutes prior to arrival [...] chronically ill adult in mild respiratory distress. Non- toxic appearing HENT: Head NCAT, EOMI with no erythema, swelling or discharge. Oropharyngeal mucus membranes moist,pink, no exudate Neck: Full ROM, supple, no rigidity Cardio: RRR, nl s1 s2 no m/r/g, extremities warm, dry, well perfused, non- edematous, 2+ bilateral radial pulses, 2+ bilateral DP pulses Lungs: CTAB, no wheezes, rales, rhonchi, normal work of breathing Abdomen: Soft, NT, ND, non-rigid, BS x 4 normal Skin: Warm, dry, pink, no rashes, bruising, or lacerations, no petechiae, no purpura Neuro: Patient alert, oriented, able to answer questions and follow commands manager of clinical II-XII normal Normal 5/5 strength and normal [...] pneumonia, recurrent pulmonary embolism, asthma exacerbation or undiagnosedCOPD or combination the above. Will test for [...] to contact the dictating provider for clarification) Pravin Silvestre MD [facility] Pravin Silvestre MD 06/22/24 1439 [employer] Phone: 1(431) 162-911805-18-2024 Emergency department Note* Melissa Gilbert RN - 04/13/2024 10:03 PM EDT Vitals updated and patient was medicated. Denied further need or questions. This RN reviewed discharge paperwork with patient. Ambulated out of ED, going to main building to visit someone. Melissa Gilbert RN 04/13/242203 [facility]WeeveZjmksi47-85-7432 Emergency department Note* Melissa Gilbert RN - 04/13/2024 10:03 PM EDT Vitals updated and patient was medicated. Denied further need or questions. This RN reviewed discharge paperwork with patient. Ambulated out of ED, going to main building to visit someone. Melissa Gilbert RN 04/13/242203 * Yuliana Peck APRN - 04/13/2024 3:43 PM EDT Images from the original note were not [...] chills, visual disturbances, chest pain, palpitations, shortness ofbreath, cough, abdominal pain, nausea, vomiting, diarrhea, constipation. Denies dysuria, hematuria,or polyuria. Nursing Notes were reviewed. Limitations to [...] - Normal Glucose 95 Narrative: Performed by: Eleno Rothman [facility], [address] [place], [place] [address]ron [place] [address] CLIA ID: [id number] All other labs were within normal range or not returned as of this dictation. EMERGENCY DEPARTMENT COURSE and DIFFERENTIAL DIAGNOSIS/MDM: Vitals: Vitals: 04/13/24 1551 04/13/242156 BP: (!) 132/93 (!) 140/97 Pulse: 90 80 Resp: 22 16 Temp: 36.1 C (96.9 F) 36.4 C (97.5 F) TempSrc: Temporal Temporal SpO2: 98% 98% Medications acetaminophen (Tylenol) tablet 1,000 mg (1,000 mg Oral Given 04/13/241750) FLUoxetine (PROzac) capsule 20 mg (20 mg [...] ED attending, who performed and independent evaluation ofthis patient and is in agreement with plan [...] Discharge 04/13/2024 07:15:26 PM PATIENT REFERRED TO: [facility] [address] [facility] [address] [facility] [address] DISCHARGE MEDICATIONS: Discharge Medication List as of 04/13/2024 7:16 PM (Comment: Please note this report has been produced using speech recognition software and may contain errors related to that system including errors in grammar, punctuation, and spelling, as well as words and phrases that may be inappropriate. If there are any questions or concerns please feel freeto contact the dictating provider for clarification.) Yuliana Peck APRN (electronically signed) Emergency Medicine Provider Yuliana Peck APRN 04/13/24 0482 documented in this [facility]05-18-2024 Hospital Discharge instructions* Discharge Instructions* Yuliana Peck APRN - 04/13/2024 7:15 PM EDT In the medical field, there is always a level of diagnostic uncertainty, even if this uncertainty is low. For this reason, it is important to immediately return to the emergency department if you have any new symptoms, worsening symptoms, change of symptoms, or if you have any other concerns. We would be happy to re- evaluate you. Otherwise, please take your medications as prescribed and follow-upas recommended. * Attachments The following attachments cannot be sent through Care Everywhere. * Syncope (Fainting) (Andorran) * Concussion Discharge Instructions, Adult (Andorran) documented in this [facility]05-18-2024 NoteThis will serve as my Supervisory note and shared attestation. I personally [...] emergency department visit, please see their documentation. [facility] EMERGENCY DEPT EMERGENCY DEPARTMENT ENCOUNTER Pt Name: [...] with automated exposure c (more content not included)...[facility]05-18-2024 Physician Emergency department Note* Yuliana Peck APRN - 04/13/2024 3:43 PM EDT Images from the original note were not [...] chills, visual disturbances, chest pain, palpitations, shortness ofbreath, cough, abdominal pain, nausea, vomiting, diarrhea, constipation. Denies dysuria, hematuria,or polyuria. Nursing Notes were reviewed. Limitations to [...] - Normal Glucose 95 Narrative: Performed by: [facility], [address] [place] [address] CLIA ID: [id number] All other labs were within normal range or not returned as of this dictation. EMERGENCY DEPARTMENT COURSE and DIFFERENTIAL DIAGNOSIS/MDM: Vitals: Vitals: 04/13/24 1551 04/13/242156 BP: (!) 132/93 (!) 140/97 Pulse: 90 80 Resp: 22 16 Temp: 36.1 C (96.9 F) 36.4 C (97.5 F) TempSrc: Temporal Temporal SpO2: 98% 98% Medications acetaminophen (Tylenol) tablet 1,000 mg (1,000 mg Oral Given 04/13/241750) FLUoxetine (PROzac) capsule 20 mg (20 mg [...] ED attending, who performed and independent evaluation ofthis patient and is in agreement with plan [...] Discharge 04/13/2024 07:15:26 PM PATIENT REFERRED TO: [facility] [address] [address] DISCHARGE MEDICATIONS: Discharge Medication List as of 04/13/2024 7:16 PM (Comment: Please note this report has been produced using speech recognition software and may contain errors related to that system including errors in grammar, punctuation, and spelling, as well as words and phrases that may be inappropriate. If there are any questions or concerns please feel freeto contact the dictating provider for clarification.) Yuliana Peck APRN (electronically signed) Emergency Medicine Provider Yuliana Peck APRN 04/13/24 8816 [facility] [employer] Work Phone: [phone]) 144-552304-30-2024 Telephone encounter Note* Telephone Encounter - Danielle Lorenzana RN - 03/26/2024 6:08 PM EDT S: Patient spoke with [facility] nurse regarding needs to be establish with the [facility] PCP States she recently moved from [facility]. [facility]. B: Onset of symptoms/concern LMP vague. 03/18 HCG normal limits. States she has had blood test whichtells her she is . A: states she is spotting and leaking milk from her breast. Reporting no control of her urine. 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 Advised for her concerns would need to go to the ED Patient understands care advice. No further needs at this time. Patient instructed to call back with new or worsening symptoms. Reason for Disposition [1] Nipple discharge AND [2] not bloody (e.g., clear, white, yellow, brown, green) Protocols used: Breast Sbidaknz-HMPUS-VS [facility] [id number] Miscellaneous Notes* Telephone Encounter - Danielle Lorenzana RN - 03/26/2024 6:08 PM EDT S: Patient spoke with [facility] nurse regarding needs to be establish with the [facility] PCP States she recently moved from [facility]. [facility]. B: Onset of symptoms/concern LMP vague. 03/18 HCG normal limits. States she has had blood test whichtells her she is . A: states she is spotting and leaking milk from her breast. Reporting no control of her urine. 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 Advised for her concerns would need to go to the ED Patient understands care advice. No further needs at this time. Patient instructed to call back with new or worsening symptoms. Reason for Disposition [1] Nipple discharge AND [2] not bloody (e.g., clear, white, yellow, brown, green) Protocols used: Breast Vupcebsb-SEXBM-IM documented in this encounterSGrand Lake Joint Township District Memorial [id number] Emergency department Note* Sylvia Glass RN - 03/19/2024 1:26 AM EDT Pt called RN in at this time stating she feels okay and was asking if she was being discharged; letproviders know Sylvia Glass RN 03/19/24 0126 [id number] Emergency department Note* Sylvia Glass RN - 03/19/2024 1:26 AM EDT Pt called RN in at this time stating she feels okay and was asking if she was being discharged; letproviders know Sylvia Glass RN 03/19/24 0126 * Sylvia Glass RN - 03/19/2024 1:17 AM EDT Pt appears comfortable resting in bed with eyes closed, RR 18 and breathing unlabored and equal. Ptdid eat a few belgica crackers and saltines with water and denies complaints Sylvia Glass RN 03/19/24 0118 * Sylvia Glass RN - 03/18/2024 11:53 PM EDT Pt in CT Sylvia Glass RN 03/18/24 2353 * Dagoberto Long RN - 03/18/2024 10:42 PM EDT Pt A+Ox4. Pt has even and equal chest rise. Pt up to self with steady gait. Dagoberto Long RN 03/18/242241 * Dagoberto Long RN - 03/18/2024 10:41 PM EDT Minor BREWER made aware of pt feeling increased anxiety and requesting Buspar 30mg via secure chat. Dagoberto Long RN 03/18/242241 * Dagoberto Long RN - 03/18/2024 9:32 PM EDT This RN attempted IV x1 unable to gain access. Sylvia ESTRADA started IV at this time with IV ultrasound. Dagoberto Long RN 03/18/242131 * Minor Bartlett PA-C - 03/18/2024 8:56 PM EDT Emergency Department Encounter [facility] EMERGENCY DEPT Patient: Mariella Christine : 1990 [...] been having intermittent abdominal pain for few monthsnow. Patient does endorse nausea with vomiting. Denies [...] as directed by ., Starting Mon02/21/2023, Print Allergies Allergen Reactions Latex [...] gross facial drooping. No obvious neurologic deficits. 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 Moves all 4 extremities spontaneously. [...] Department Physician in the absence of a half sole fitter. see their note for interpretation of EKG. [...] given Toradol, Zofran and fluids. Our workup consistedof ordering/reviewing CBC, CMP, lipase, hCG, UA, CT ab/pelvis and showed no leukocytosis. Hemoglobin 13.9. Lipase normal. HCG negative. CMP showed creatinine of 1.07. Normal liver enzymes. UA showed red blood cells, white blood cells, no bacteria. Will send for culture. CT abd/pelvis showed trace pn eumobilia (of no clinical significance). Stable right adrenal adenoma. Normal appendix. No CT evidence of an acute abdominal/pelvic process. Patient presented with abdominal pain. Unsure etiology. Pt tolerated PO challenge. Given benign repeat abdominal exam, reassuring lab studies, and CT scan findings, low suspicion for acute hepatobiliary disease (including acute cholecystitis or cholangitis), acute pancreatitis (neg lipase), acute ap pendicitis, bowel obstruction, viscus perforation, or diverticulitis. Presentation [...] Discharge 03/19/2024 01:26:22 AM PATIENT REFERRED TO: [facility] EMERGENCY DEPT [address] [facility] [address] As needed [facility] Internal Medicine [address] [facility] [address] [facility] [address] DISCHARGE MEDICATIONS: Discharge Medication List as of 03/19/2024 1:26 AM @[facility]([id number]:LAST:1)@ (Please note: Portions of this note were completed with a voice recognition program. Efforts were made to edit the dictations but occasionally words and phrases are mis-transcribed.) Form v2016.J.5-cn Minor Bartlett PA-C Acute Care [facility] Minor Bartlett PA-C 03/19/24 0512 * Law Camilo MD - 03/18/2024 8:56 PM EDT Emergency Department Encounter [facility] EMERGENCY DEPT Patient: Mariella Christine : 1990 [...] are any questions or concerns please feel freeto contact the dictating provider for clarification.) Law Camilo MD [facility] Care [facility] Law Camilo MD 03/19/24 0042 documented in this [facility]04-23-2024 Hospital Discharge instructions* Discharge Instructions* Minor Bartlett PA-C - 03/19/2024 1:26 AM EDT INFORMATION: You were treated in the emergency department for abdominal pain There are many causes of abdominal pain, some serious and some not serious. Based on your evaluation, even if we were not able to determine an absolute cause of your abdominal pain, we think that youare safe to follow up with a primary [...] food or otherwise greasy food at least untilyour pain is entirely gone. Avoid alcohol until [...] a day, severe pain, other concerning symptoms. * Attachments The following attachments cannot be sent through Care Everywhere. * Abdominal Pain, Adult ED ([place]orran) documented in this [facility]04-23-2024 Emergency department Note* Sylvia Glass RN - 03/19/2024 1:17 AM EDT Pt appears comfortable resting in bed with eyes closed, RR 18 and breathing unlabored and equal. Ptdid eat a few belgica crackers and saltines with water and denies complaints Sylvia Glass RN 03/19/24 0118 [place] [id number] Emergency department Note* Sylvia Glass RN - 03/18/2024 11:53 PM EDT Pt in CT Sylvia Glass RN 03/18/24 7914 [id number] Emergency department Note* Dagoberto Long RN - 03/18/2024 10:42 PM EDT Pt A+Ox4. Pt has even and equal chest rise. Pt up to self with steady gait. Dagoberto Long RN 03/18/24 8208 [id number] Emergency department Note* Dagoberto Long RN - 03/18/2024 10:41 PM EDT Minor BREWER made aware of pt feeling increased anxiety and requesting Buspar 30mg via secure chat. Dagoberto Long RN 03/18/242241 [place] [id number] Emergency department Note* Dagoberto Long RN - 03/18/2024 9:32 PM EDT This RN attempted IV x1 unable to gain access. Sylvia ESTRADA started IV at this time with IV ultrasound. Dagoberto Long RN 03/18/242131 [place] [id number] Physician Emergency department Note* Minor Bartlett PA-C - 03/18/2024 8:56 PM EDT Emergency Department Encounter [facility] EMERGENCY DEPT Patient: Mariella Christine : 1990 [...] been having intermittent abdominal pain for few monthsnow. Patient does endorse nausea with vomiting. Denies [...] hours or as directed by , Starting Rebeca 02/21/2023, Print Allergies Allergen Reactions Latex Pcn [...] gross facial drooping. No obvious neurologic deficits. 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 Moves all 4 extremities spontaneously. [...] Department Physician in the absence of a half sole fitter. see their note for interpretation of EKG. [...] given Toradol, Zofran and fluids. Our workup consistedof ordering/reviewing CBC, CMP, lipase, hCG, UA, CT ab/pelvis and showed no leukocytosis. Hemoglobin 13.9. Lipase normal. HCG negative. CMP showed creatinine of 1.07. Normal liver enzymes. UA showed red blood cells, white blood cells, no bacteria. Will send for culture. CT abd/pelvis showed trace pn eumobilia (of no clinical significance). Stable right adrenal adenoma. Normal appendix. No CT evidence of an acute abdominal/pelvic process. Patient presented with abdominal pain. Unsure etiology. Pt tolerated PO challenge. Given benign repeat abdominal exam, reassuring lab studies, and CT scan findings, low suspicion for acute hepatobiliary disease (including acute cholecystitis or cholangitis), acute pancreatitis (neg lipase), acute ap pendicitis, bowel obstruction, viscus perforation, or diverticulitis. Presentation [...] 15 mg (15 mg IntraVENous Given 03/18/24 2307) ondansetron (Zofran) injection 4 mg (4 mg IntraVENous Given 03/18/24 2307) iopamidol (Isovue-370) 76 % injection 75 mL (75 mL IntraVENous Given 03/18/24 2352) CONSULTS: None PROCEDURES: Unless otherwise noted below, none Procedures DISPOSITION/PLAN Discharge 03/19/2024 01:26:22 AM PATIENT REFERRED TO: [facility] EMERGENCY DEPT [address] [facility] [address] As needed [facility] Internal Medicine [address] [facility] [address] DISCHARGE MEDICATIONS: Discharge Medication List as of 03/19/2024 1:26 AM @[facility]([id number]:LAST:1)@ (Please note: Portions of this note were completed with a voice recognition program. Efforts were made to edit the dictations but occasionally words and phrases are mis-transcribed.) Form v2016.J.5-edy Bartlett PA-C Acute Care [employer] [facility] Minor Bartlett PA-C 03/19/24 0512 [id number] Physician Emergency department Note* Law Camilo MD - 03/18/2024 8:56 PM EDT Emergency Department Encounter [facility] EMERGENCY DEPT Patient: Mariella Christine : 1990 [...] are any questions or concerns please feel freeto contact the dictating provider for clarification.) Law Camilo MD [facility] [employer] Law Camilo MD 03/19/24 0042 [employer] Work Phone: [phone] Hospital Discharge instructions* Discharge Instructions* Yuliana Peck APRN - 10/04/2023 10:12 PM EST In the medical field, there is always a level of diagnostic uncertainty, even if this uncertainty is low. For this reason, it is important to immediately return to the emergency department if you have any new symptoms, worsening symptoms, change of symptoms, or if you have any other concerns. We would be happy to re- evaluate you. Otherwise, please take your medications as prescribed and follow-upas recommended. * Attachments The following attachments cannot be sent through Care Everywhere. * Stomach Ache and Stomach Upset (Andorran) * Lactose-Controlled Diet (Andorran) documented in this [facility]11-08-2023 Emergency department Note* Melissa Matson RN - 10/04/2023 2:15 PM EST Patient came up to the triage window [...] this patient is not & that is confirmedby US. Pt continues to state she can feel something moving inside her around her belly button. Pt brought back down to ED triage for care. Melissa Matson RN 10/04/23 1422 [facility] [id number] Emergency department Note* Melissa Matson RN - 10/04/2023 2:15 PM EST Patient came up to the triage window [...] this patient is not & that is confirmedby US. Pt continues to state she can feel something moving inside her around her belly button. Pt brought back down to ED triage for care. Melissa Matson RN 10/04/23 1422 * Rosa Claudio RN - 10/04/2023 1:51 PM EST Pt came to window stating she has [...] 10/04/23 1352 Rosa Claudio RN 10/04/23 1431 * Ranulfo Elizondo MD - 10/04/2023 1:36 PM EST Emergency Department Encounter [facility] EMERGENCY DEPT Patient: [...] something moving in the upper abdomen. Patient statesthat 4 out of 5 test personally checked [...] dictating provider for clarification) RANULFO ELIZONDO MD [facility] Ranulfo Elizondo MD 10/04/23 8313 documented in this [facility]11-08-2023 Emergency department Note* Rosa Claudio RN - 10/04/2023 1:51 PM EST Pt came to window stating she has [...] 10/04/23 1352 Rosa Claudio RN 10/04/23 1431 [facility] [id number] Physician Emergency department Note* Ranulfo Elizondo MD - 10/04/2023 1:36 PM EST Emergency Department Encounter [facility] EMERGENCY DEPT Patient: Mariella Christine : 1990 [...] something moving in the upper abdomen. Patient statesthat 4 out of 5 test personally checked [...] [employer] Ranulfo Elizondo MD 10/04/23 4504 [employer] Work Phone: [phone] Miscellaneous Notes* Telephone Encounter - Berenice Bess RODRI - 01/10/2023 1:25 PM EST Made 3 attempts to reach patient but each attempted recording received stating Your call did not go through please try again. * Telephone Encounter - Selena Robert MD - 01/10/2023 12:52 PM EST She needs to follow up with us today or tomorrow Regards, Selena Robert MD * Telephone Encounter - Carrol Deutsch LPN - 01/10/2023 9:38 AM EST Phoned patient to follow up on fall. [...] her cousin who helps her. Please advise. Carrol Deutsch LPN [facility] Miscellaneous Notes* Telephone Encounter - Carrol Deutsch LPN - 01/09/2023 4:58 PM EST patient notified and verbalized understanding. Carrol Deutsch LPN * Telephone Encounter - Kylah Bruno APRN.CNP - 01/09/2023 4:05 PM EST Please let patient know her thyroid level was slightly abnormal. I would like to recheck this in 4 weeks. Thank you Kylah Bruno APRN.KODI documented in [facility]02-13-2023 Miscellaneous Notes* Telephone Encounter - Linnea Bello LPN - 01/09/2023 2:29 PM EST Patient has been identified by name and [...] you. Linnea Bello LPN documented in [facility]08-26-2022 Miscellaneous Notes* Telephone Encounter - Carrol Deutsch LPN - 07/22/2022 8:55 AM EDT Patient has been identified by name and [...] medication: Not applicable Please advise. Thank you. Carrol Deutsch LPN documented in this [facility]Mer[facility]04-11-2022 History of Present illness Narrative* Kylah Bruno APRN.KODI - 03/07/2022 3:06 PM EDT CC: Patient presents with: Physical: Annual Physical HPI Mariella Christine is a 31 year old female who presents today for annual physical exam. Was last seen 2 years ago. Exercise: works out regularly walking every day. Diet: Watches diet for salt (salty snacks, added salt, processed frozen/canned foods), sugary/sweetsnacks, unhealthy fats: Yes Caffeine: 4 cups a [...] center and psych medications are prescribed there. Iscurrently going through medication changes. 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 when 9 Fracture Arm fell 10 ft. when 9 Head injury fell 10 ft. 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 qkcmiuwe-vzusigtov-ixhlshocfeiara (CORTISPORIN) otic solution Use 4 Drops in the right ear three times daily. prazosin (MINIPRESS) 1 mg cap AT BEDTIME topiramate (TOPAMAX) 25 mg tablet topiramate Topiramate 1 - 3 TABLET ORAL NEEDED PRN For Sleep September 15, 2017 Active 09-15-2017 [facility] (00025) albuterol HFA (PROVENTIL HFA, VENTOLIN HFA) 90 [...] tenderness, Left hip is painful with external andinternal rotation Neurological: Gait normal. Sensation grossly intact. [...] diet of 1000 mg/day for under 50, 1200- 1500 mg/day for 50+ - Discussed need and [...] N92.6 - HCG negative. Has not seen program director substance abuse per patient in many years, consult placed. - CONSULT TO GYNECOLOGY 9. Possible - ICD9: V72.40, ICD10: Z32.00 - HCG QUAL UR B/O - negative 10. Lipid screening - ICD9: V77.91, ICD10: Z13.220 - COMP METABOLIC PANEL - LIPID PANEL BASIC documented in this encounterCleveland ClinicEvaluation note* Diagnosis Annual physical exam- Primary Routine general [...] for lipoid disorders documented in this encounter [facility] note* Diagnosis Gastroesophageal reflux disease without esophagitis Esophageal reflux documented in this encounter [facility] noteNo assessment information availableWOhioHealth Grant Medical Center Work Phone: Evaluation note* Diagnosis Gastroesophageal reflux disease without esophagitis Esophageal reflux documented in this encounter [facility] note* Diagnosis Abnormal TSH- Primary Other abnormal clinical finding documented in this encounter [facility] note* Diagnosis Left upper quadrant abdominal pain- Primary documented in this encounter [facility] note* Diagnosis Abdominal pain, generalized- Primary Adrenal adenoma, unspecified laterality Pneumobilia documented in this encounter [facility] note* Diagnosis Syncope, unspecified syncope type- Primary Closed head injury, initial encounter documented in this encounter [facility] note* Diagnosis Chest pain, unspecified type- Primary Dizziness Dizziness and giddiness documented in this encounter [facility] note* Diagnosis Viral URI with cough- Primary Acute cough Chronic dyspnea Muscular aches Unspecified myalgia and myositis Diffuse arthralgia Bee sting allergy Does not have primary care provider documented in this encounter [facility] note* Diagnosis Encounter for medical screening examination- Primary documented in this encounter [facility] note* Diagnosis Moderate left ankle sprain, initial encounter- Primary [facility] Additional Instructions Please take Tylenol, ibuprofen as needed for further pain control. Please return if develop loss of sensation, coolness to touch, change in appearance, numbness, inability to ambulateWOhioHealth Grant Medical Center Work Phone: Hospital Discharge instructionsAdditional Instructions Your x-rays did not show any acute broken bones. Ice, rotate Tylenol and ibuprofen jkdvel-nvv-wvakt for pain control. Follow-up your doctor in outpatient setting. Return with worsening symptoms or any concernsWOhioHealth Grant Medical Center Work Phone: Reason for referral (narrative)* Consultation (Routine) - Pending Review Specialty Diagnoses / Procedures Referred By Contac t Referred To Contact Internal Medicine Diagnoses Left upper quadrant abdominal pain Procedures MI OFFICE/OUTPATIENT NEW HIGH MDM 60-74 MINUTES Yuliana Peck APRN [address] [place] [address] [facility] [address] [place] [address] Referral ID Status Reason Start Date Expiration Date Visits Requested Visits Authorized [id number] Pending Review Specialty Services Required 10/04/2023 10/03/2024 1 1 [facility] Institute[facility]on for referral (narrative)* Consultation (Routine) - Pending Review Specialty Diagnoses / Procedures Referred By Contac t Referred To Contact Internal Medicine Diagnoses Abdominal pain, generalized Procedures MI OFFICE/OUTPATIENT NEW HIGH MDM 60 MINUTES Minor Bartlett PA-C [address] [place] [address] [facility] [address] [place] [address] Referral ID Status Reason Start Date Expiration Date Visits Requested Visits Authorized [id number] Pending Review Specialty Services Required 03/19/2024 03/19/2025 1 1 [facility] (narrative)* Consultation (Routine) - Pending Review Specialty Diagnoses / Procedures Referred By Contac t Referred To Contact Internal Medicine Diagnoses Syncope, unspecified syncope type Closed head injury, initial encounter Procedures MI OFFICE/OUTPATIENT NEW HIGH MDM 60 MINUTES Yuliana Peck APRN [address] [place] [address] [facility] [address] [place] [address] Referral ID Status Reason Start Date Expiration Date Visits Requested Visits Authorized [id number] Pending Review Specialty Services Required 04/13/2024 04/13/2025 1 1 [facility] (n[facility]ative[facility] Consultation (Routine) - Pending Review Specialty Diagnoses / Procedures Referred By Contac t Referred To Contact Family Medicine Diagnoses Chronic dyspnea Does not have primary care provider Procedures MI OFFICE/OUTPATIENT NEW HIGH MDM 60 MINUTES Gamaliel Mo DO [address] [place] [address] [facility] [address] [place] [address] Referral ID Status Reason Start Date Expiration Date Visits Requested Visits Authorized [id number] Pending Review Specialty Services Required 08/13/2024 08/13/2025 1 1 Eleno Cruz for referral (narrative)No reason for referral information [facility] Work Phone: Summary Purpose Family History No Family History [...] Will No September 20 7:35pm Power of Foxer No September 20, 2022 7:35pm Date Activated Date Inactivated Comments 12/06/2024 12:14 AM 12/06/2024 6:35 PM Advance Directive Response Recorded Date/ Time Do you have a Healthcare Power of Foxer? Yes Susana 22nd, 2025 1:17pm Advance Directive Response Recorded Date/ Time Do you have a Healthcare Power of Foxer? Yes July 17, 2025 7:01pm Do you have a Healthcare Power of Foxer? Yes May 18, 2025 1:17pm Advance Directive Response Recorded Date/ Time Do you have a Healthcare Power of Foxer? Yes July 17, 2025 7:01pm Do you have a Healthcare Power of Foxer? Yes May 18, 2025 1:17pm Do you have a Healthcare Power of Foxer? No August 23, 2025 9:05pm Reason for Referral Specialty Diagnoses / Procedures Referred By Contac t Referred To Contact Gynecology Diagnoses Abnormal menstruation Procedures CONSULT TO GYNECOLOGY OFFICE/OUTPATIENT NEW HIGH MDM 60-74 MINUTES Kylah Bruno APRN.[employer] [address] [place] [address] Referral ID Status Reason Start Date Expiration Date Visits Requested Visits Authorized [id number] Authorized PCP Requested Referral Auto-Generate d Referral 03/07/2022 03/07/2023 1 1 Specialty Diagnoses / Procedures Referred By Contac t Referred To Contact XR IMAGING Diagnoses Chronic left hip pain Procedures XR HIP GENERAL 3V PELV/AP/LAT LEFT RADEX HIP UNILATERAL WITH PELVIS 2-3 VIEWS Kylah Bruno APRN.[employer] [address] [place] [address] Xr Imaging Referral ID Status Reason Start Date Expiration Date Visits Requested Visits Authorized [id number] Authorized Auto-Generat ed Referral 03/07/2022 04/06/2023 1 1 Chief Complaint and Reason for Visit Chief Complaint RIGHT ANKLE Chief Complaint Admit Date BITE May 18, 2025 12:4 8pm Chief Complaint Admit Date BITE May 18, 2025 12:4 8pm July 17, 2025 6: 19pm Chief Complaint Admit Date BITE May 18, 2025 12:4 8pm July 17, 2025 6: 19pm wrist injury August 23, 2025 9:03pm Additional Source Comments INFORMATION SOURCE (unrecogn ized section and content) DATE CREATED AUTHOR 07/15/[address] [facility] DATE CREATED AUTHOR AUTHOR'S ORGANIZ ATION 05/05/2023 [facility] ([place]) DATE CREATED AUTHOR AUTHOR'S ORGANIZ ATION 09/14/2024 [facility] DATE CREATED AUTHOR AUTHOR'S ORGANIZ ATION 03/23/2025 [facility] DATE CREATED AUTHOR AUTHOR'S ORGANIZ ATION 05/22/2025 [facility] DATE CREATED AUTHOR AUTHOR'S ORGANIZ ATION 08/30/2025 [facility] Source Comments (unrecognize d section and content) In the event this informatio n is protected by the Federal Confidentiality of Alcohol and Drug Abuse Patient Records regulations: The Federal rules restrict any use of the information to criminally investigate or prosecute any alcohol or drug abuse patient.[facility] the event this information is protected by the Federal Confidentiality of Alcohol and Drug Abuse Patient Records regulations: The Federal rules restrict any use of the information to criminally investigate or prosecute any alcohol or drug abuse patient.[facility] the event this information is protected by the Federal Confidentiality of Alcohol and Drug Abuse Patient Records regulations: The Federal rules restrict any use of the information to criminally investigate or prosecute any alcohol or drug abuse patient.[facility] Hospital[facility] the event this information is protected by the Federal Confidentiality of Alcohol and Drug Abuse Patient Records regulations: The Federal rules restrict any use of the information to criminally investigate or prosecute any alcohol or drug abuse patient.[facility] Hospital[facility] the event this information is protected by the Federal Confidentiality of Alcohol and Drug Abuse Patient Records regulations: The Federal rules restrict any use of the information to criminally investigate or prosecute any alcohol or drug abuse patient.[facility] Hospital[facility] the event this information is protected by the Federal Confidentiality of Alcohol and Drug Abuse Patient Records regulations: The Federal rules restrict any use of the information to criminally investigate or prosecute any alcohol or drug abuse patient.[facility] HospitalIn the event this information is protected by the Federal Confidentiality of Alcohol and Drug Abuse Patient Records regulations: The Federal rules restrict any use of the information to criminally investigate or prosecute any alcohol or drug abuse patient.[facility] Reason for Visit (unrecogniz ed section and [...] and is having difficulty walking on it Reason Comments New OB Care Teams (unrecognized sec tion and content) Political Geographer Relationship Specialty Start Date End Date Selena Robert MD [address] [place] [address] PCP - General Internal Medicine 11/06/17 Political Geographer Relationship Specialty Start Date End Date Selena Robert MD [address] [facility] [place], [place] [id number] PCP - General Internal Medicine 11/06/17 Political Geographer Relationship Specialty Start Date End Date Selena Robert MD [address] [facility] [place] [id number] PCP - General Internal Medicine 11/06/17 Political Geographer Relationship Specialty Start Date End Date Selena Robert MD [address] [facility] [place] [address] PCP - General Internal Medicine 11/06/17 Political Geographer Relationship Specialty Start Date End Date Selena Robert MD [address] [facility], [place] [address] PCP - General Internal Medicine 11/06/17 Team Status: Active Member Role Status Dates Dr. Selena Robert MD Primary Care Provider Active Team Status: Inactive Member Role Status Dates Dr. Selena Robert MD Primary Care Provider Active Start: May 18, 2025 End: May 18, 2025 Dr. Rustam Silvestre MD Emergency Provider Active Sta rt: May 18, 2025 End: May 18, 2025 Political Geographer Relationship Specialty Start Date End Date Selena Robert MD [address] [facility], [place] [id number] PCP - General Internal Medicine 11/06/17 Kylah Bruno APRN.[employer] [address] [facility] [place], [place] [address] Dog Daycare Provider Internal Medicine 11/03/24 Team Status: Active Member Role/Relationship Status Dates Dr. Selena Robert MD Primary Care Provider Active Team Status: Inactive Member Role/Relationship Status Dates Dr. Selena Robert MD Primary Care Provider Active Start: May 18, 2025 End: May 18, 2025 Dr. Rustam Silvestre MD Attending Provider Active Sta rt: May 18, 2025 End: May 18, 2025 Dr. Rustam Silvestre MD Emergency Provider Active Sta rt: May 18, 2025 End: May 18, 2025 Team Status: Inactive Member Role/Relationship Status Dates Dr. Selena Robert MD Primary Care Provider Active Start: July 17, 2025 End: July 17, 2025 Dr. Conor Figueredo MD Emergency Provider Active Start: July 17, 2025 End: July 17, 2025 Team Status: Active Member Role/Relationship Status Dates Dr. Selena Robert MD Primary care physician Active Team Status: Inactive Member Role/Relationship Status Dates Dr. Selena Robert MD Primary care physician Active Start: May 18, 2025 End: May 18, 2025 Dr. Rustam Silvestre MD Attending physician Active St art: May 18, 2025 End: May 18, 2025 Dr. Rustam Silvestre MD Emergency Department Physician Acti ve Start: May 18, 2025 End: May 18, 2025 Team Status: Inactive Member Role/Relationship Status Dates Dr. Selena Robert MD Primary care physician Active Start: July 17, 2025 End: July 17, 2025 Dr. Conor Figueredo MD Attending physician Active Start: July 17, 2025 End: July 17, 2025 Dr. Conor Figueredo MD Emergency Depart [facility] Physician Active Start: July 17, 2025 End: July 17, 2025 Team Status: Inactive Member Role/Relationship Status Dates Dr. Selena Robert MD Primary care physician Active Start: August 23, 2025 End: August 23, 2025 Dr. Seferino Callahan DO Attending physician Active Start: August 23, 2025 End: August 23, 2025 Dr. Seferion Callahan DO Emergency Departme nt Physician Active Start: August 23, 2025 End: August 23, 2025 Goals (unrecognized section and content) Goals may be documented in a n alternate sectionGoals may be documented in an alternate sectionGoals may be documented in an alternate sectionGoals may be documented in an alternate section Scheduled Active and Recently Administ ered Medications (unrecognized section and content) Medication Order 10/02/2023 10/03/2023 10/04/2023 dicyclomine (Bentyl) injection 20 mg (COMPLETED) 20 mg, IntraMUSCular, Once, On Mon10/04/23 at 2050, For 1 dose 2101 (Given - Provid er: Jodie Clarke, SEAN) PRN Medication Order 10/02/2023 10/03/2023 10/04/2023 iopamidol (Isovue-370) 76 % injection 75 mL (COMPLETED) 75 mL, IntraVENous, IMG once PRN, contrast, Starting on Mon10/04/23 at 2119, For 1 dose 2118 (Given - Provid er: KIMBERLY Yao) Scheduled Medication Order 03/17/2024 03/18/2024 03/19/2024 ketorolac (Toradol) injection 15 mg (COMPLETED) 15 mg, IntraVENous, Once, On Mon03/18/24 at 2305, For 1 dose 230 (Given - Provider: Sylvia Glass RN) ondansetron (Zofran) injection 4 mg (COMPLETED) 4 mg, IntraVENous, Once, On Mon03/18/24 at 2305, For 1 dose 230 (Given - Provider: Sylvia Glass, SEAN) sodium chloride 0.9 % bolus 1,000 mL (COMPLETED) 1,000 mL, IntraVENous, at 1,000 mL/hr, Administer over 1 Hours, Once, On Mon03/18/24 at 2305, For 1 dose 2307 (New Bag - Provider: Sylvia Glass, SEAN) 0046 (Stopped - Provider: Sylvia Glass RN) PRN Medication Order 03/17/2024 03/18/2024 03/19/2024 iopamidol (Isovue-370) 76 % injection 75 mL (COMPLETED) 75 mL, IntraVENous, IMG once PRN, contrast, Starting on Mon03/18/24 at 2352, For 1 dose 235 (Given - Provider: Pedro Singh, RT (R)) Scheduled Medication Order 04/11/2024 04/12/2024 04/13/2024 acetaminophen (Tylenol) tablet 1,000 mg (COMPLETED) 1,000 mg, Oral, Once, On Mon04/13/24 at 1635, For 1 dose, Maximum dose of acetaminophen is 4000 mg from all sources in 24 hours. 1751 (Given - Provid er: Rosa Ewing LPN) [...] On 06/22/24 at 1430, For 1 dose 155 (Given - Provid er: Kylie Moore RN) [...] On 06/22/24 at 1430, For 1 dose 155 (Given - Provid er: Kylie Moore RN) [...] BE BASED ON THE PRIMARY CLINICAL RECORDS. [facility]. provides no warranty or guarantee of the accuracy or completeness of information in this document.
[2025-11-05 08:09] VITALS: BP 170/103; PULSE 71; RESP 18; TEMP 36.9; O2SAT 100
== END 2025-11-05 08:12 | disposition home or self-care (01) ==
PROVIDERS: Emergency Provider Emergency Medicine; PCP Internal Medicine; Visit Provider Emergency Medicine
DX: R07.89 Other chest pain (principal); Z87.81 Personal history of (healed) traumatic fracture; Z87.891 Personal history of nicotine dependence
CPT/HCPCS: 71046; 99282